=== PATIENT | male | born 1955 | race Caucasian/White ===

== ENCOUNTER 2020-01-29 00:36 | Inpatient (IN) | payer OTHER, MEDICARE, SELFPAY ==
[2020-01-29] VITALS (8 sets, daily range): BP systolic 110–140; BP diastolic 57–85; PULSE 70–86; RESP 17–21; TEMP 36.4–36.8; O2SAT 91–98; BMI 36.9
--- NOTE | 2020-01-29 01:07 | USCV_ITS ---
Sukumar Bangura Age: 64 Gender: M : 1955 Exam Date: 01/29/2020 09:22 Ordering Phys: Isabelle Nation MD Technologist: Jyoti Hall Exam Location: [facility] [place] Indication: CHF BP: 131 / 85 HR: 96 Rhythm: Sinus Technical Quality: Technically difficult study MEASUREMENTS (Male / Female) Normal Values 2D ECHO LV Diastolic Diameter PLAX 3.7 cm 4.2 - 5.9 / 3.9 - 5.3 cm LV Systolic Diameter PLAX 2.7 cm LV Chamber Size 3.3 cm IVS Diastolic Thickness 1.5 cm 0.6 - 1.0 / 0.6 - 0.9 cm IVS Systolic Thickness 1.7 cm LVPW Diastolic Thickness 1.1 cm 0.6 - 1.0 / 0.6 - 0.9 cm LVPW Systolic Thickness 1.6 cm RV Chamber Size 2.8 cm LVOT Diameter 2.1 cm LV Ejection Fraction 2D Teich 51.4 % LA Diameter 4.3 cm LA Width 2.5 cm LA Height 3.7 cm RA Width 3.0 cm RA Height 4.2 cm Aorta at Sinotubular Diameter 2.6 cm M-MODE LV Diastolic Diameter MM 3.8 cm 4.2 - 5.9 / 3.9 - 5.3 cm LV Systolic Diameter MM 3.0 cm LV Ejection Fraction MM Teich 46.7 % IVS Diastolic Thickness MM 1.3 cm 0.6 - 1.0 / 0.6 - 0.9 cm IVS Systolic Thickness MM 1.3 cm LVPW Diastolic Thickness MM 1.4 cm 0.6 - 1.0 / 0.6 - 0.9 cm LVPW Systolic Thickness MM 1.9 cm RV Diastolic Diameter MM 2.0 cm Aortic Annulus Diameter 3.2 cm LA Ao Ratio MM 1.3 MV E Point Septal Separation 1.0 cm DOPPLER AV Peak Velocity 90.0 cm/s LVOT Peak Velocity 62.0 cm/s AV Area Cont Eq vti 2.4 cm squared AV Area Cont Eq pk 2.3 cm squared MV Area PHT 4.0 cm squared Mitral E to A Ratio 1.2 MV E' Velocity 7.0 cm/s Mitral E to MV E' Ratio 9.1 Mitral E to LV E' Lateral Ratio 8.4 Mitral E to LV E' Septal Ratio 9.9 TV Peak E Velocity 48.0 cm/s Right Atrial Pressure 3.0 mmHg PV Peak Velocity 61.0 cm/s RV Acceleration Time 0.1 s RV Ejection Time 0.3 s RV AcT/ET 0.2 FINDINGS Left Ventricle The ventricle is not well seen. This is an exceedingly poor quality study. Parasternal views are barely appropriate for interpretation. The apical and subcostal views are not useful. Left ventricular size and function is probably within normal limits. One cannot assess wall motion disturbances. There is at least grade 1 diastolic dysfunction. Right Ventricle Right ventricle not well visualized. Right Atrium Right atrium not well visualized. Left Atrium Mildly increased left atrial size. Left atrium not well visualized. Mitral Valve Mitral valve not well visualized. Aortic Valve Aortic valve not well visualized. Tricuspid Valve Tricuspid valve not well visualized. Pulmonic Valve Pulmonic valve not well visualized. Pericardium Normal pericardium without effusion. Aorta Normal ascending aorta dimension. CONCLUSIONS The ventricle is not well seen. This is an exceedingly poor quality study. Parasternal views are barely appropriate for interpretation. The apical and subcostal views are not useful. Left ventricular size and function is probably within normal limits. One cannot assess wall motion disturbances. There is at least grade 1 diastolic dysfunction. Mildly increased left atrial size. Left atrium not well visualized. Technically limited study. No significant valve abnormalities. No change from 08/27/2017. Dr. Orville Marinelli MD (Electronically Signed) Final Date: 29 January 2020 13:42 S
--- NOTE | 2020-01-29 01:10 | USR_ITS ---
PROCEDURE INFORMATION: Exam: US Duplex Right Lower Extremity Veins, Limited Exam date and time: 01/29/2020 1:11 AM Age: 64 years old Clinical indication: Swelling (edema) of limb; Lower extremity, right; Additional info: Hypoxic respiratory failure, right leg swelling TECHNIQUE: Imaging protocol: Real-time Duplex ultrasound of the Right Lower Extremity with 2-D peacock scale, color Doppler flow and spectral waveform analysis with image documentation. Limited exam was focused on the right lower extremity veins. COMPARISON: No relevant prior studies available. FINDINGS: Right deep veins: The common femoral, femoral, proximal profunda femoral and popliteal veins are patent without thrombus. Normal Doppler waveforms. Normal compressibility and/or augmentation response. Right superficial veins: Saphenofemoral junction is patent without thrombus. Soft tissues: Superficial soft tissue edema. US/[place] [id number] IMPRESSION: No deep vein thrombosis.
--- NOTE | 2020-01-29 01:12 | P.HP_ITS ---
Providers/Chief Complaint Admitting Physician: Isabelle Nation MD Primary Care Provider: Rehan Khan Chief Complaint: CHF exacerbation History of Present Illness Sukumar Bangura is a 64 year old male who carries diagnosis of scoliosis, status post multiple surgeries of his back, chews tobacco daily, no significant past medical history came in from [facility] for management of new onset congestive heart failure. 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 He has never been diagnosed with CHF or PE, NM, coronary artery disease in the past. He experienced left-sided chest discomfort on Friday which was radiating towards his axilla lasted for a few minutes and went away on its own. He did not notice any cough production, fever, blood in sputum, nausea, vomiting, cold sweats. He has been noticing that his right leg is getting more swollen as compared to the left. He has orthopnea and PND, please note he is not able to lay flat because of his scoliosis. Patient is stating that he sleeps while sitting in her couch or recliner. Diagnostics from the other facility revealed Normal CBC, BMP, troponin first 32, 2-hour troponin 35, EKG was sinus rhythm, heart rate 70-80, blood pressure systolic ranging between 1 30s, he was afebrile, BNP 2500, chest x-ray did not reveal vascular congestion however shows cardiomegaly He was given 60 mg of Lasix, I requested CTA to be done before transfer, he could not lay flat because of his back pain, hence full dose Lovenox 100 mg was given, required 6 L nasal cannula O2 Review of Systems Const: Denies: fever, chills, body aches or fatigue Eyes: Denies: change in vision ENMT: Denies: throat pain Card: Reports: chest pain, swelling of feet/ankles, shortness of breath on exertion and shortness of breath when lying down; Denies: palpitations, irregular heart rhythm or lightheadedness Resp: Reports: shortness of breath; Denies: productive cough, non-productive cough or coughing up blood GI: Denies: abdominal pain, nausea, vomiting, coffee grounds in vomit or heartburn/indigestion : Denies: flank pain, difficulty urinating, urinary frequency, urinary urgency or urinary dribbling Musc: Reports: joint stiffness and muscle cramps; Denies: neck pain, back pain, extremity swelling, joint pain or joint swelling Skin/Breast: Denies: rash or itching Neuro: Denies: headache, numbness in extremities, weakness in extremities, changes in sensation or lack of coordination Psych: Denies: anxiety or depression Endo: Denies: excessive urination Chaitanya/Lymph: Denies: easy bruising All/Imm: Denies: hives PFSH Acute PFSH: Medical History Acquired arm deformity COPD (chronic obstructive pulmonary disease) Fixation hardware in spine GERD (gastroesophageal reflux disease) Hyperglycemia Kyphoscoliosis Scoliosis Tobacco chew use Surgical History (Updated 01/29/20 @ 01:20 by Isabelle Nation MD) H/O arthroscopy of shoulder History of appendectomy History of [place] fundoplication Hx of cholecystectomy Family History (Updated 01/29/20 @ 01:20 by Isabelle Nation MD) Father Cancer Social History (Updated 01/29/20 @ 01:21 by Isabelle Nation MD) Smoking and tobacco status: current every day smoker smokeless tobacco Smokeless tobacco user: chewing tobacco Smokeless tobacco details: 1 can daily Alcohol intake: never Substance/Drug Use: never Housing: Condominium 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 Renee is sitting at the bedside, saturating 84% on room air, he was put on 3 L nasal cannula that improved his oxygen saturation to 94% S1, S2, hard to assess his JVD, however bilateral lower extremity edema Lung auscultation reveals bilateral good breath sounds without any adventitious sounds Midabdominal scar not sensitive, bowel sounds present, nontender, with obesity Kyphoscoliosis Bilateral lower extremity edema right greater than left Alert oriented x3 No sign of ischemic gangrene or ulcer on skin No respiratory distress Mood is irritable A&P Assessment and plan (1) New onset of congestive heart failure: Status: Acute Code(s): I50.9 - Heart failure, unspecified Additional A&P Information New onset congestive heart failure BNP 2500, clinical signs of fluid overload We will get echo in the morning I will increase his Lasix dose to 40 mg daily No previous history of coronary disease NM or CHF Troponin 32 and second troponin 35, currently he is not complaining of chest pain, EKG did not show any signs of ischemia or infarction I am uncertain at this point whether sleep apnea contributed to congestive heart failure versus right heart failure due to PE Acute hypoxic respiratory failure My suspicion is very high for PE considering his profession, right lower extremity swelling I will keep him on Lovenox 100 mg twice a day He was not able to lay flat for CTA chest, will get d-dimer Repeat chest x-ray in the morning Kyphoscoliosis Patient is stating that he sleeps upright, he does not sleep supine He could only walk up to 6 to 10 feet's without exertional shortness of breath Titanium hetal in spine 6 ribs were removed along 4 vertebrae Chews tobacco: Counseled on smoking cessation and benefits on his health Full code DVT prophylaxis currently on high dose Lovenox Attestations Medical Necessity Statement*: Anticipating discharge in less than 48 hours, currently needs observation for work-up and management of new onset congestive heart failure and hypoxic respiratory failure Time Spent in Patient Care: 50 Coding Level of Care Code 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
--- NOTE | 2020-01-29 02:59 | PC.NURSE ---
0115 dose of lasix discontinued per Dr Nation. Patient had received 60mg of Lasix at [place], [place] prior to transfer to [facility] [place].
[2020-01-29 04:30] LABS: Estmated Average Glucose 120; Hemoglobin A1C 5.8 % (4.0-6.0)
[2020-01-29 04:31] LABS: D Dimer 0.67 ug/mIFEU (0-0.59)
[2020-01-29 04:57] LABS: Troponin T (5th) Once 24 ng/mL (0-15)
[2020-01-29 05:35] LABS: Anion Gap 17.7 (5-19); Blood Urea Nitrogen 17 mg/dL (8-23); Calcium 9.2 mg/dL (8.5-10.5); Carbon Dioxide 37 mmol/L (22-29); Chloride 90 mmol/L (98-107); Glomerular Filtration Rate 75.5 mL/min (90-130); Glucose 217 mg/dL (65-115); Osmolality Calculated 293 mOsm/kg (285-295); Potassium 4.7 mmol/L (3.5-5.1); Sodium 140 mmol/L (136-145); Thyroid Stimulating Hormone 0.62 uIU/mL (0.27-4.20)
[2020-01-29 05:58] LABS: Chol HDL Ratio 2.46 mg/dL (1.0-5.00); Cholesterol 118 mg/dL (0-200); HDL Cholesterol 48 mg/dL (60-100); LDL Cholesterol Calculated 44 mg/dL (50-129); LDL HDL Ratio 0.92 RATIO (0.00-3.22); Triglycerides 130 mg/dL (0-150)
--- NOTE | 2020-01-29 07:00 | XRR_ITS ---
PROCEDURE INFORMATION: Exam: XR Chest, 1 View Exam date and time: 01/29/2020 5:06 AM Age: 64 years old Clinical indication: Shortness of breath; Prior surgery; Surgery date: 6+ months; Surgery type: Back SX; Additional info: Chf TECHNIQUE: Imaging protocol: XR of the chest Views: 1 view. COMPARISON: CR Chest 1 [place] [id number] 02/24/2018 3:16 PM FINDINGS: Lungs: Lungs are clear. Pleural space: There is no pleural effusion or pneumothorax. Heart/Mediastinum: Moderate enlargement of the cardiac silhouette accentuated by marked scoliosis, stable since 02/24/2018. Bones/joints: Marked S-shaped thoracic scoliosis. Oconnor hetal noted. There is bilateral chest wall deformity due to scoliosis. No visible fractures. XR/XR chest 1V portable [id number] IMPRESSION: No acute findings.
[2020-01-29] MEDS: pantoprazole DR 40 mg Tablet 20 MG PO (09:17)
[2020-01-29] MEDS: enoxaparin 100 mg/mL Syringe 85 MG SUBCUT ×2 (09:22→20:27)
[2020-01-29] MEDS: FUROsemide 10 mg/mL SDV 4mL 40 MG IVP ×2 (09:22→17:54)
--- NOTE | 2020-01-29 09:58 | PC.NURSE ---
Patient assisted to restroom and refused to wear oxygen and was not wearing it when this nurse entered room. Upon returning to chair O2 checked and patient o2 saturations are noted at 67% O2 placed at 3L patient not recovering well after 2 min O2 turned up to 5L to help with recovery. Patient asymptomatic awake alert and appropriate respirations increased and mild abd breathing noted. Educated patient on what was going on with his O2 and Patient stated Don't write that down i want to go home today. Patient educated on the need to report all events to the doctors to give the best care possible. patient continues to tell this Nurse that he was going home today.
--- NOTE | 2020-01-29 11:18 | PC.NURSE ---
Patient sitting up in chair present patient is on telephone and when nurse entered room patient stated to person on Phone I have to get off here, because my nurse just walked in and I have to Kick her ass out of here patient then requested sodas coke and sprite or 2 sprites patient educated on the need to limit fluid intake and patient stated what goes in comes out patient and educated on Heart failure and the do's and don't to prevent exacerbations. Patient is no susceptible to learning will reenforce education throughout the shift
--- NOTE | 2020-01-29 11:24 | CTR_ITS ---
PROCEDURE INFORMATION: Exam: CT Angiography Chest With Contrast Exam date and time: 01/29/2020 4:21 PM Age: 64 years old Clinical indication: Dyspnea; Additional info: Dyspnea with concern for pe TECHNIQUE: Imaging protocol: Computed tomographic angiography of the chest with intravenous contrast. 3D rendering: MIP and/or 3D reconstructed images were created by the technologist. Total DLP: 479.07 mGy-cm Radiation optimization: All CT scans at this facility use at least one of these dose optimization techniques: automated exposure control; mA and/or kV adjustment per patient size (includes targeted exams where dose is matched to clinical indication); or iterative reconstruction. Contrast material: OMNIPAQUE 350; Contrast volume: 95 ml; Contrast route: IV; COMPARISON: CR XR chest 1V portable [id number] 01/29/2020 4:57 AM FINDINGS: Pulmonary arteries: The pulmonary artery is enlarged consistent with pulmonary artery hypertension. There is no evidence for a pulmonary embolus. Aorta: Unremarkable. No aortic aneurysm. No aortic dissection. Lungs: There is a 1.4 cm nodule in the right middle lobe on series 2, image 171. There are some adjacent 0.5 cm nodules in the right middle lobe on image 163. There are also nodular densities in the right lower lobe on image 142 measuring 1.8 and 1.2 cm. Pleural space: Unremarkable. No pneumothorax. No pleural effusion. Heart: Unremarkable. No cardiomegaly. No pericardial effusion. Lymph nodes: Unremarkable. No enlarged lymph nodes. Bones/joints: There is a posterior fusion rods which results in streak artifact. There is a thoracolumbar spine scoliosis. Soft tissues: Unremarkable. This study is compromised by patient motion. CT/CT angio chest PE protcl [id number] IMPRESSION: There is no evidence for a pulmonary embolus. There is multifocal nodular disease in the right middle and lower lobes of the lung. This may represent infectious, inflammatory or metastatic disease.Clinical correlation is advised. For patients at low risk (minimal or absent history of smoking and of other known risk factors), recommend CT at 3-6 months, then consider CT at 18-24 months. For patients at high risk (history of smoking or of other known risk factors), recommend CT at 3-6 months, then CT at 18-24 months. (dave Cadet al., Fleischner Society, 2017) Radiation Dose CTDIVOL = (mGy): DLP = 479.07 (mGy-cm)
--- NOTE | 2020-01-29 11:49 | PM.PN ---
Subjective Subjective: Interval history: Patient denies chest pain but reports gradually worsening shortness of breath especially in the last 2 weeks. He admits skipping Lasix frequently. He started new job 2 weeks ago. 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 He drinks large amount of fluids. In the last several months he reports that he cannot lay flat in his bed and sleeps always in the recliner. He reports paroxysmal nocturnal dyspnea, orthopnea and worsening lower extremity swelling. Reports that he is right lower extremity is always swollen more than left. Medications: Reviewed: Yes Vitals/I&O/Wt Last Vital Signs Temp 97.6 F 01/29/20 11:17 Pulse 79 01/29/20 11:17 Resp 17 01/29/20 11:17 BP 117/64 01/29/20 11:17 Pulse Ox 97 01/29/20 11:17 01/28/20 01/29/20 01/29/20 22:59 06:59 14:59 Intake Total 150 / 150 240 / 240 Output Total 350 / 350 Balance -200 / -200 240 / 240 Weight last 48 hrs Weight 85.729 kg Physical Exam Const: COMMON NORMALS: no apparent distress and oriented x3 Chest: OTHER: Kyphoscoliosis. 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 Resp: COMMON NORMALS: normal respiratory effort OTHER: Bibasilar Rales with overall decreased air movement. Cardio: COMMON NORMALS: regular rate, regular rhythm and S2 normal heart sound RATE: regular rate RHYTHM: regular rhythm HEART SOUNDS: S2 normal OTHER: 3+ lower extremity edema with right slightly more than left GI: COMMON NORMALS: normal to inspection, nondistended, normoactive bowel sounds, soft to palpation and non-tender PALPATION: Yes soft Neuro: COMMON NORMALS: oriented x3 and no focal motor deficits Data : 01/29/20 03:21 A&P Assessment and plan (1) New onset of congestive heart failure: Status: Acute Code(s): I50.9 - Heart failure, unspecified Additional A&P Information New onset congestive heart failure appears to be diastolic Acute hypoxic respiratory failure Kyphoscoliosis Chews tobacco Hyperglycemia without previous diagnosis of diabetes. PLAN: We will aggressively diurese patient. Obtain CTA of the chest to rule out PE and to better evaluate for pneumonia as patient reports nasal congestion and at times clear phlegm productive cough. Awaiting bilateral lower extremity venous ultrasound and echocardiogram. Patient is definitely at risk for DVT/PE and this could play a role in patient's hypoxia and episode of chest pain. Monitor blood glucose level and check hemoglobin A1c. Full code DVT prophylaxis currently on high dose Lovenox Attestations Medical Necessity Statement*: Patient with acute heart failure requires close inpatient monitoring and treatment. 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
--- NOTE | 2020-01-29 11:56 | USR_ITS ---
PROCEDURE INFORMATION: Exam: US Duplex Left Lower Extremity Veins, Limited Exam date and time: 01/29/2020 12:44 PM Age: 64 years old Clinical indication: Swelling (edema) of limb; Lower extremity, left TECHNIQUE: Imaging protocol: Real-time Duplex ultrasound of the Left Lower Extremity with 2-D peacock scale, color Doppler flow and spectral waveform analysis with image documentation. Limited exam focused on the left lower extremity veins. COMPARISON: No relevant prior studies available. FINDINGS: Left deep veins: Unremarkable. The common femoral, femoral, proximal profunda femoral and popliteal veins are patent without thrombus. Normal Doppler waveforms. Normal compressibility and/or augmentation response. Left superficial veins: Unremarkable. Saphenofemoral junction is patent without thrombus. Soft tissues: Unremarkable. US/CV venous duplex [facility] [id number] IMPRESSION: No DVT of the left lower extremity veins.
--- NOTE | 2020-01-29 12:05 | PC.NURSE ---
clarified orders on furosemide 40MG IVP to give now when a dose was given at 0922 hold the noon dose and start at next scheduled time
[2020-01-29 12:49] LABS: Cholesterol 120 mg/dL (0-200); Magnesium 2.1 mg/dL (1.7-2.3); Triglycerides 116 mg/dL (0-150); VLDL Cholestrol Calculation 23 mg/dL (0-30)
[2020-01-29 13:41] LABS: Estmated Average Glucose 120; Hemoglobin A1C 5.8 % (4.0-6.0)
[2020-01-29 13:46] LABS: Chol HDL Ratio 2.45 mg/dL (1.0-5.00); HDL Cholesterol 49 mg/dL (60-100); LDL Cholesterol Calculated 48 mg/dL (50-129)
--- NOTE | 2020-01-29 13:52 | PC.CHAP ---
Pastoral Care Encounter/Spiritual Assessment Type of Contact [] Declined blender operator visit [] Patient/Family/Request visit [] Outpatient visit [] Follow-up visit [] Physician referral [] Code/Alert [X] Routine visit [] Staff referral [] Actively dying [] Patient sleeping [] Family support [] [] Out of room [] Palliative care [] [] Receiving care in room [] Pre-surgical visit [] Trauma [] Long length of stay [] ICU visit [] Other: Relational/Emotional Strength [] Patient feels connected with others/family/visitors/staff [] Distress [] Loneliness/isolation [] Abandonment Spirituality of Patient [] Person of Adela [] Attends Restorationist of their Adela [] Believes in Prayer [] Reads Bible or Nondenominational materials [] There are Spiritual issues to be addressed [place] Interventions [] Prayer [] Active listening [] Non-anxious presence [] Spiritual/emotional support [] Crisis/trauma care [] Spiritual counseling [] Bereavement support [] Provided bereavement packet [] Provided Bible/devotional materials [] Provided toy/stuffed animal, coloring book to patient or family member [] Provided Communion [] Anointing/[place] [] Salvation [] Completed spiritual assessment [] Other: Impact on Illness or Injury [] Angry [] Fearful [] Anxious [] Often cries [] Exhaustion [] Unable to work [] Unable to attend presybeterian [] Unable to walk/stand [] Unable to read [] Unable to drive [] Unable to eat/drink [] Unable to sleep [] Unable to be with family [] Patient intubated [] Other: Summary CUTS UP AND LAUGHS A LOT Time spent with patient
--- NOTE | 2020-01-29 17:35 | PC.NURSE ---
spoke with Dr. Hayes about time of administration of Lasix ok to reschedule to 1800,0600
[2020-01-30] VITALS (8 sets, daily range): BP systolic 112–130; BP diastolic 71–91; PULSE 72–84; RESP 18–32; TEMP 36.6–37; O2SAT 93–98
[2020-01-30] MEDS: FUROsemide 10 mg/mL SDV 4mL 40 MG IVP ×2 (04:55→17:26)
[2020-01-30 05:08] LABS: Basophils % 0.1 %; Hematocrit 58.4 % (42.0-52.0); Hemoglobin 16.5 g/dL (11.7-16.6); Lymphocytes # 1.2 10^3/uL (0.8-4.8); Lymphocytes % 11.1 %; Mean Corpuscular HGB Conc 28.3 g/dL (30.0-36.0); Mean Corpuscular Hemoglobin 29.4 pg (28.0-34.0); Mean Corpuscular Volume 103.9 fL (80-94); Mean Platelet Volume 9.9 fL (7.4-10.4); Monocytes # 0.9 10^3/uL (0.2-0.9); Monocytes % 8.7 %; Neutrophils # 8.6 10^3/uL (1.8-7.7); Neutrophils % 79.7 %; Nucleated Red Blood Cells % 0 %; Platelet Count 179 10^3/cmm (130-400); Red Blood Count 5.62 10^6/uL (4.1-5.3); Red Cell Distribution Width 13.6 % (12.1-15.1); White Blood Count 10.8 10^3/uL (4.0-10.0)
[2020-01-30 05:37] LABS: Alanine Aminotransferase 19 U/L (0-41); Albumin Level 3.7 g/dL (3.5-5.2); Alkaline Phosphatase 92 IU/L (40-130); Blood Urea Nitrogen 22 mg/dL (8-23); Calcium 9.2 mg/dL (8.5-10.5); Chloride 90 mmol/L (98-107); Globulin 3.4 g/dL (1.3-4.6); Glomerular Filtration Rate 75.5 mL/min (90-130); Glucose 121 mg/dL (65-115); Osmolality Calculated 290 mOsm/kg (285-295); Sodium 141 mmol/L (136-145); Total Bilirubin 0.4 mg/dL (0.15-1.2); Total Protein 7.1 g/dL (6.6-8.7)
[2020-01-30 05:41] LABS: Aspartate Amino Transferase 21 U/L (0-40)
[2020-01-30 05:42] LABS: Carbon Dioxide 44 mmol/L (22-29)
[2020-01-30] MEDS: pantoprazole DR 40 mg Tablet 20 MG PO (08:53)
[2020-01-30] MEDS: enoxaparin 100 mg/mL Syringe 85 MG SUBCUT ×2 (08:56→19:59)
--- NOTE | 2020-01-30 10:51 | P.PN_ITS ---
Subjective Subjective: Interval history: Patient reports feeling better this morning. His breathing is better and lower extremity swelling improving. Reports dry cough Medications: Reviewed: Yes Vitals/I&O/Wt Last Vital Signs Temp 98.1 F 01/30/20 04:00 Pulse 78 01/30/20 07:51 Resp 20 H 01/30/20 07:51 BP 124/91 01/30/20 07:51 Pulse Ox 94 01/30/20 07:51 01/29/20 01/30/20 01/30/20 22:59 06:59 14:59 Intake Total 240 / 480 240 / 720 360 / 360 Output Total 950 / 1650 800 / 2450 200 / 200 Balance -710 / -1170 -560 / -1730 160 / 160 Weight last 48 hrs Weight 85.729 kg Physical Exam Const: COMMON NORMALS: no apparent distress and oriented x3 Chest: OTHER: Kyphoscoliosis. 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 Resp: COMMON NORMALS: normal respiratory effort OTHER: Bibasilar Rales with overall decreased air movement. Cardio: COMMON NORMALS: regular rate, regular rhythm and S2 normal heart sound RATE: regular rate RHYTHM: regular rhythm HEART SOUNDS: S2 normal OTHER: 1+ lower extremity edema with right slightly more than left GI: COMMON NORMALS: normal to inspection, nondistended, normoactive bowel sounds, soft to palpation and non-tender PALPATION: Yes soft Neuro: COMMON NORMALS: oriented x3 and no focal motor deficits Data : 01/30/20 04:05 01/30/20 04:05 A&P Assessment and plan (1) New onset of congestive heart failure: Status: Acute Code(s): I50.9 - Heart failure, unspecified Additional A&P Information New onset congestive heart failure appears to be diastolic Acute hypoxic respiratory failure Kyphoscoliosis Chews tobacco Hyperglycemia without previous diagnosis of diabetes. HgA1C 5.8 Multifocal nodular disease in Right middle and lower lobes. Infectioun vs malignancy. (patient will need outpatient repeat imaging after treatment of pneumonia for reevaluation in 3 month or sooner. Community-acquired pneumonia. PLAN: Continue IV diuresis for one more day Will start patient on Levaquin for assumed pneumonia. Patient will need to have repeat imaging in couple of months to reevaluate nodular disease. Again discussed regarding importance of restricting fluids when he starts having lower extremity swelling and shortness of breath Full code DVT prophylaxis currently on high dose Lovenox Attestations Medical Necessity Statement*: Patient with CHF exacerbation as well as pneumonia requires close inpatient monitoring and treatment will deemed safe for discharge. Coding Level of Care Code Acute Emotionally Impaired Teacher for Edwin Ward Diagnoses New onset of congestive heart failure I50.9
[2020-01-30] MEDS: levofloxacin-dextrose 5 % 750 MG/150 ML PREMIX 150 MG IV (12:18)
[2020-01-31] VITALS (55 sets, daily range): BP systolic 112–120; BP diastolic 77–84; PULSE 74–103; RESP 13–34; TEMP 36.5–37.1; O2SAT 90–96
[2020-01-31 05:18] LABS: Basophils % 0.4 %; Eosinophils # 0.1 10^3/uL (0.0-0.8); Eosinophils % 1.2 %; Hematocrit 59.9 % (42.0-52.0); Hemoglobin 16.8 g/dL (11.7-16.6); Lymphocytes # 1.7 10^3/uL (0.8-4.8); Lymphocytes % 21.6 %; Mean Corpuscular Hemoglobin 29.3 pg (28.0-34.0); Mean Corpuscular Volume 104.5 fL (80-94); Mean Platelet Volume 9.9 fL (7.4-10.4); Monocytes # 1.1 10^3/uL (0.2-0.9); Monocytes % 14.2 %; Neutrophils % 62.4 %; Nucleated Red Blood Cells % 0 %; Platelet Count 160 10^3/cmm (130-400); Red Blood Count 5.73 10^6/uL (4.1-5.3); Red Cell Distribution Width 13.9 % (12.1-15.1); White Blood Count 8.1 10^3/uL (4.0-10.0)
[2020-01-31 05:45] LABS: Alanine Aminotransferase 18 U/L (0-41); Albumin Level 3.8 g/dL (3.5-5.2); Alkaline Phosphatase 94 IU/L (40-130); Anion Gap 10.3 (5-19); Blood Urea Nitrogen 24 mg/dL (8-23); Calcium 9.2 mg/dL (8.5-10.5); Chloride 87 mmol/L (98-107); Globulin 3.6 g/dL (1.3-4.6); Glomerular Filtration Rate 85.2 mL/min (90-130); Glucose 91 mg/dL (65-115); Osmolality Calculated 292 mOsm/kg (285-295); Potassium 4.3 mmol/L (3.5-5.1); Sodium 143 mmol/L (136-145); Total Bilirubin 0.6 mg/dL (0.15-1.2); Total Protein 7.4 g/dL (6.6-8.7)
[2020-01-31 05:50] LABS: Aspartate Amino Transferase 19 U/L (0-40); Carbon Dioxide 50 mmol/L (22-29)
--- NOTE | 2020-01-31 06:40 | PC.NURSE ---
IV in right upper arm infiltrated and removed with catheter intact. Attempt to start new IV x4 by this nurse and an ER nurse with no success. Will try at another time as patient is getting agitated due to needle sticks.
[2020-01-31] MEDS: enoxaparin 100 mg/mL Syringe 85 MG SUBCUT (08:05)
[2020-01-31] MEDS: FUROsemide 10 mg/mL SDV 4mL 40 MG IVP (08:05)
[2020-01-31] MEDS: pantoprazole DR 40 mg Tablet 20 MG PO (08:05)
[2020-01-31] MEDS: levofloxacin-dextrose 5 % 750 MG/150 ML PREMIX 150 MG IV (11:44)
--- NOTE | 2020-01-31 11:55 | P.PN_ITS ---
Subjective Subjective: Interval history: Chart reviewed, on RA and hemodynamically stable, had 575 mL urine output overnight. AM labs noted, resolved leukocytosis. Patient seen and examined, sitting up in bed, no complaints currently, inquiring about when he gets to go home. Switched to oral diuretics and antibiotics. Medications: Reviewed: Yes Medication Review Details: Active Medications Generic Name Dose Route Start Last Admin Trade Name Freq PRN Reason Stop Dose Admin Albuterol/Ipratrop ium 3 ml 01/29/20 01:10 Duoneb INHALATION Q6H PRN SHORTNESS OF SUDHAKAR TH Enoxaparin Sodium 85 mg 01/29/20 09:00 01/31/20 08:05 Lovenox SUBCUT 85 mg Q12H ZIGGY Administration Furosemide 40 mg 01/29/20 18:00 01/31/20 08:05 Lasix IVP 40 mg Q12H ZIGGY Administration Levofloxacin/Dextr ose 750 mg in 150 mls @ 150 mls/hr 01/30/20 11:30 01/31/20 11:44 Levaquin-D5w IV 150 mls/hr Q24H ZIGGY Administration Protocol Pantoprazole Sodiu m 20 mg 01/29/20 09:00 01/31/20 08:05 Protonix PO 20 mg DAILY ZIGGY Administration codeine Allergy (Verified 01/29/20 02:03) ALGY-Rash Vitals/I&O/Wt Last Vital Signs Temp 97.7 F 01/31/20 11:45 Pulse 80 01/31/20 11:45 Resp 21 H 01/31/20 11:45 BP 120/84 01/31/20 11:45 Pulse Ox 93 01/31/20 11:45 01/30/20 01/31/20 01/31/20 22:59 06:59 14:59 Intake Total 140 / 650 300 / 950 360 / 360 Output Total 1225 / 1725 375 / 2100 650 / 650 Balance -1085 / -1075 -75 / -1150 -290 / -290 Physical Exam Const: COMMON NORMALS: no apparent distress and oriented x3 GENERAL APPEARANCE: cooperative and comfortable NUTRITIONAL APPEARANCE: obese JESSICA ENTATION/CONSCIOUSNESS: Yes awake HENMT: COMMON NORMALS: normocephalic, head/scalp atraumatic, hearing grossly normal bilaterally and moist oral mucous membranes HEAD & SCALP: normoce phalic and atraumatic Eye: COMMON NORMALS: PERRL, EOMs intact bilaterally and conjunctivae normal CONJUNCTIVA: Yes conjunctivae normal PUPIL: Yes PERRL Neck/C-Spine: COMMON NORMALS: full ROM GENERAL: Yes normal visual inspection and Yes trachea midline Resp: COMMON NORMALS: normal respiratory effort, no retractions, no use of accessory muscles and clear to auscultation bilaterally EFFORT & INSPECTION: Yes able to speak in complete sentences, Yes symmetric chest movement and No tachypneic AUSCULTATION: clear to auscultation bilaterally Cardio: COMMON NORMALS: regular rate, regular rhythm, S1 normal heart sound, S2 normal heart sound and no murmurs RATE: regular rate RHYTHM: regular rhythm HEART SOUNDS: S1 normal and S2 normal GI: COMMON NORMALS: normal to inspection, nondistended, normoactive bowel sounds, soft to palpation and non-tender INSPECTION: Yes central obesity PALPATION: Yes soft Extremity: COMMON NORMALS: normal to inspection, full ROM and no clubbing, cyanosis or edema; negative for no pedal edema NARRATIVE EXTREMITY EXAM: -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 Neuro: COMMON NORMALS: oriented x3, moves all extremities, no focal motor deficits, no sensory deficits noted and gait normal Psych: COMMON NORMALS: mental status grossly normal, thought process normal, cooperative, affect normal and speech normal SPEECH: Yes normal speech THOUGHT PROCESS: normal thought process Skin: COMMON NORMALS: no rashes or lesions noted, no jaundice, no petechiae and no mottling GENERAL SKIN EXAM: no rashes or lesions noted Data : 01/31/20 04:06 01/31/20 04:06 A&P Assessment and plan (1) New onset of congestive heart failure: -new onset diastolic CHF -Echo: limited study but EF likely wnl, at least G1DD -on IV diuresis with Lasix; so far has diuresed 3.4 L; better clinically compensated, switch to oral Lasix -continue daily weights, monitoring Is & Os -continue to monitor renal function and lytes -CXR negative Status: Acute Code(s): I50.9 - Heart failure, unspecified (2) Acquired arm deformity: Status: Acute Qualifiers: Laterality: left Qualified Code(s): M21.922 - Unspecified acquired deformity of left upper arm Code(s): M21.929 - Unspecified acquired deformity of unspecified upper arm Additional A&P Information -Morbid obesity: BMI-37 kg/m2 -COPD, not oxygen dependent -kyphoscoliosis s/p multiple back surgeries -Chronic tobacco use (chewing) -community acquired pneumonia; on Levaquin, CXR negative, afebrile, leukocytosis resolved -PE and DVT ruled out; noted evidence of pulmonary arterial hypertension on CT as well as RML and RLL nodules; will need f/u imaging -cardiac diet as tolerated -DVT ppx with Lovenox -GI ppx with PPI -Dispo: home -Code status: FULL code Attestations Medical Necessity Statement*: Patient requires hospitalization for continued IV diuresis secondary to acutely decompensated CHF. Time Spent in Patient Care: Greater than 35 minutes (>than 50% of time spent in counselling and/or direct pt care on unit) . Coding Level of Care Code Acute Java [id number] Architect for Edwin Fwd Exam Comprehensive Diagnoses New onset of congestive heart failure I50.9 Acquired arm deformity M21.922 Laterality: left
--- NOTE | 2020-01-31 15:13 | PC.CHAP ---
Pastoral Care Encounter/Spiritual Assessment Type of Contact [] Declined automated equipment engineer technician visit [] Patient/Family/Request visit [] Outpatient visit [] Follow-up visit [] Physician referral [] Code/Alert [x] Routine visit [] Staff referral [] Actively dying [] Patient sleeping [] Family support [] [] Out of room [] Palliative care [] [] Receiving care in room [] Pre-surgical visit [] Trauma [] Long length of stay [] ICU visit [] Other: Relational/Emotional Strength [] Patient feels connected with others/family/visitors/staff [] Distress [] Loneliness/isolation [] Abandonment Spirituality of Patient [] Person of Adela [] Attends Moravian of their Adela [] Believes in Prayer [] Reads Bible or Yazidism materials [x] There are Spiritual issues to be addressed Glass Handler Interventions [] Prayer [x] Active listening [x] Non-anxious presence [x] Spiritual/emotional support [] Crisis/trauma care [] Spiritual counseling [] Bereavement support [] Provided bereavement packet [] Provided Bible/devotional materials [] Provided toy/stuffed animal, coloring book to patient or family member [] Provided Communion [] Anointing/[place] [] Salvation [x] Completed spiritual assessment [] Other: Impact on Illness or Injury [] Angry [] Fearful [] Anxious [] Often cries [] Exhaustion [] Unable to work [] Unable to attend anabaptism [] Unable to walk/stand [] Unable to read [] Unable to drive [] Unable to eat/drink [] Unable to sleep [] Unable to be with family [] Patient intubated [] Other: Summary Patient declined prayer and didn't need anything from chaplains. Patient was visited by Glass Handler Ulysses Loomis. Time spent with patient 8 minutes
--- NOTE | 2020-01-31 22:05 | PC.NURSE ---
went to check on patient, patient sitting in chair in upright position, reapplied coban around the patient's IV site, Pulled chair up so patient can elevate bilateral lower extremities because patient is refusing to lay in the bed at this time. Care Continued and will continue to monitor. Call light within reach.
[2020-02-01] VITALS (7 sets, daily range): BP systolic 101–130; BP diastolic 67–86; PULSE 75–81; RESP 15–29; TEMP 36.6–36.8; O2SAT 86–98
--- NOTE | 2020-02-01 02:06 | PC.NURSE ---
patient sitting up in the chair, encouraged the patient to lay in the bed, patient refuses, patient also refuses to keep bilateral lower extremities elevated. Encouraged patient that if sitting in the chair, to elevate bilateral lower extremities. Teaching provided to patient regarding dependent edema. Patient verbalizes understanding; however, still refuses to elevate bilateral lower extremities. Care Continue. Call light within reach.
[2020-02-01 04:02] LABS: Basophils % 0.6 %; Eosinophils # 0.1 10^3/uL (0.0-0.8); Eosinophils % 1.9 %; Hematocrit 60.8 % (42.0-52.0); Hemoglobin 18.1 g/dL (11.7-16.6); Lymphocytes # 1.7 10^3/uL (0.8-4.8); Lymphocytes % 23.3 %; Mean Corpuscular HGB Conc 29.8 g/dL (30.0-36.0); Mean Corpuscular Hemoglobin 29.9 pg (28.0-34.0); Mean Corpuscular Volume 100.3 fL (80-94); Mean Platelet Volume 9.9 fL (7.4-10.4); Monocytes % 13.6 %; Neutrophils # 4.4 10^3/uL (1.8-7.7); Neutrophils % 60.3 %; Nucleated Red Blood Cells % 0 %; Platelet Count 172 10^3/cmm (130-400); Red Blood Count 6.06 10^6/uL (4.1-5.3); Red Cell Distribution Width 13.6 % (12.1-15.1); White Blood Count 7.2 10^3/uL (4.0-10.0)
[2020-02-01 04:14] LABS: Alanine Aminotransferase 16 U/L (0-41); Albumin Level 3.4 g/dL (3.5-5.2); Alkaline Phosphatase 94 IU/L (40-130); Anion Gap 7.9 (5-19); Aspartate Amino Transferase 16 U/L (0-40); Blood Urea Nitrogen 21 mg/dL (8-23); Calcium 9.7 mg/dL (8.5-10.5); Chloride 91 mmol/L (98-107); Globulin 4.2 g/dL (1.3-4.6); Glomerular Filtration Rate 97.6 mL/min (90-130); Glucose 111 mg/dL (65-115); Osmolality Calculated 289 mOsm/kg (285-295); Potassium 3.9 mmol/L (3.5-5.1); Sodium 141 mmol/L (136-145); Total Protein 7.6 g/dL (6.6-8.7)
[2020-02-01 04:57] LABS: Carbon Dioxide 37 mmol/L (22-29)
[2020-02-01] MEDS: levoFLOXacin 750 mg Tablet PO (05:15)
--- NOTE | 2020-02-01 08:09 | P.PN_ITS ---
Subjective Subjective: Interval history: Morning labs noted, increased RBC, hemoglobin and hematocrit. This could be related to diuretic use so we will give normal saline bolus and repeat CBC. Had 550 mL urine output overnight. Is requiring 2 L nasal cannula so will have home oxygen evaluation done. Patient qualifies for 2 L nasal cannula with exertion. Sitting in chair by bedside during my encounter, no complaints, very eager to go home this afternoon. Medications: Reviewed: Yes Medication Review Details: Active Medications Generic Name Dose Route Start Last Admin Trade Name Freq PRN Reason Stop Dose Admin Albuterol/Ipratrop ium 3 ml 01/31/20 13:10 Duoneb INHALATION Q6H.RESPIRATORY P RN SHORTNESS OF SUDHAKAR TH Enoxaparin Sodium 40 mg 02/01/20 09:00 Lovenox SUBCUT Q24H ZIGGY Furosemide 40 mg 02/01/20 08:00 Lasix PO BID@08,16 [facility] Sodium Chloride 1,000 mls @ 999 m ls/hr 02/01/20 08:08 Sodium Chloride 0.9% IV 02/01/20 09:08 .Q1H1M ONE Levofloxacin 750 mg 02/01/20 06:00 02/01/20 05:15 Levaquin PO 750 mg DAILY@0600 [facility] Administration Protocol Pantoprazole Sodiu m 40 mg 02/01/20 09:00 Protonix PO DAILY [facility] codeine Allergy (Verified 01/29/20 02:03) ALGY-Rash Vitals/I&O/Wt Last Vital Signs Temp 98.2 F 02/01/20 04:00 Pulse 81 02/01/20 07:29 Resp 15 02/01/20 07:29 BP 130/74 02/01/20 07:29 Pulse Ox 95 02/01/20 07:29 01/31/20 02/01/20 02/01/20 22:59 06:59 14:59 Intake Total 480 / 1110 Output Total 825 / 1875 / 1974 100 Balance -345 / -765 -100 / -865 -100 / -100 Physical Exam Const: COMMON NORMALS: no apparent distress and oriented x3 GENERAL APPEARANCE: cooperative and comfortable NUTRITIONAL APPEARANCE: obese ORIENTATION/CONSCIOUSNESS: Yes awake HENMT: COMMON NORMALS: normocephalic, head/scalp atraumatic, hearing grossly normal bilaterally and moist oral mucous membranes HEAD & SCALP: normocephalic and atraumatic Eye: COMMON NORMALS: PERRL, EOMs intact bilaterally and conjunctivae normal CONJUNCTIVA: Yes conjunctivae normal PUPIL: Yes PERRL Neck/C-Spine: COMMON NORMALS: full ROM GENERAL: Yes normal visual inspection and Yes trachea midline Resp: COMMON NORMALS: normal respiratory effort, no retractions, no use of accessory muscles and clear to auscultation bilaterally EFFORT & INSPECTION: Yes able to speak in complete sentences, Yes symmetric chest movement and No tac hypneic AUSCULTATION: clear to auscultation bilaterally Cardio: COMMON NORMALS: regular rate, regular rhythm, S1 normal heart sound, S2 normal heart sound and no murmurs RATE: regular rate RHYTHM: regular rhythm HEART SOUNDS: S1 normal and S2 normal GI: COMMON NORMALS: normal to inspection, nondistended, normoactive bowel sounds, soft to palpation and non-tender INSPECTION: Yes central obesity PALPATION: Yes soft Back/Pelvis: OTHER: -Noted kyphoscoliosis, scarring from previous back surgeries Extremity: COMMON NORMALS: normal to inspection and full ROM; negative for no pedal edema NARRATIVE EXTREMITY EXAM: -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 -Trace pitting edema bilateral lower extremities Neuro: COMMON NORMALS: oriented x3, moves all extremities, no focal motor deficits, no sensory deficits noted and gait normal Psych: COMMON NORMALS: mental status grossly normal, thought process normal, cooperative, affect normal and speech normal SPEECH: Yes normal speech THOUGHT PROCESS: normal thought process Skin: COMMON NORMALS: no rashes or lesions noted, no jaundice, no petechiae and no mottling GENERAL SKIN EXAM: no rashes or lesions noted Data : 02/01/20 10:34 02/01/20 03:05 A&P Assessment and plan (1) New onset of congestive heart failure: -new onset diastolic CHF -Echo: limited study but EF likely wnl, at least G1DD -on IV diuresis with Lasix; so far has diuresed 4 L; better clinically compensated, switched to oral Lasix -continue daily weights, monitoring Is & Os -continue to monitor renal function and lytes -CXR negative Status: Acute Code(s): I50.9 - Heart failure, unspecified (2) Acquired arm deformity: Status: Chronic Qualifiers: Laterality: left Qualified Code(s): M21.922 - Unspecified acquired deformity of left upper arm Code(s): M21.929 - Unspecified acquired deformity of unspecified upper arm Additional A&P Information -Morbid obesity: BMI-37 kg/m2 -COPD, not oxygen dependent -kyphoscoliosis s/p multiple back surgeries -Chronic tobacco use (chewing) -community acquired pneumonia; on Levaquin, CXR negative, afebrile, leukocytosis resolved -noted polycythemia with high RBC, elevated Hg and hematocrit; review of previo us labs shows normal values so likely relative polycythemia related to diuretic use. Will give IVF and repeat CBC. Otherwise could be multifactorial given CELESTE, hypoxia and pulmonary HTN -PE and DVT ruled out; noted evidence of pulmonary arterial hypertension on CT as well as RML and RLL nodules; will need f/u imaging -cardiac diet as tolerated -DVT ppx with Lovenox -GI ppx with PPI -Dispo: home -Code status: FULL code Attestations Medical Necessity Statement*: Posssible discharge later today if CBC improved. Time Spent in Patient Care: 16 - 35 minutes (>than 50% of time spent in counselling and/or direct pt care on unit) . Coding Level of Care Code Acute Admissions Supervisor for Samig Fwd Exam Comprehensive Diagnoses New onset of congestive heart failure I50.9 Acquired arm deformity M21.922 Laterality: left
--- NOTE | 2020-02-01 08:38 | P.DS_ITS ---
Discharge Providers Date of Admission: 01/31/20 12:02 Date of Discharge: February 01, 2020 Attending Provider at Admission: Isabelle Nation MD Attending Provider at Discharge: Nelsy Gomez MD Primary Care Provider: Sukhjinder Khan Diagnoses at Discharge Discharge Diagnosis (1) New onset of congestive heart failure: Status: Acute (2) Acquired arm deformity: Status: Chronic Qualifiers: Laterality: left Qualified Code(s): M21.922 - Unspecified acquired deformity of left upper arm Reason for Visit Reason for Visit: Reason For Visit: CHF exacerbation Hospital Course Hospital Course: Patient was admitted to the cardiac stepdown unit and secondary to new onset CHF exacerbation he was diuresed with IV Lasix. He has responded well to diuresis and once symptomatically improved and clinically compensated he was switched to oral Lasix. Echo was done though study was quite limited, EF is likely within normal limits and he has at least grade 1 diastolic dysfunction. He was noted to have symptoms concerning for possible community- acquired pneumonia and has been on empiric Levaquin which he will need to continue on discharge to complete his treatment course. Incidentally he was noted to have what appears to be relative polycythemia likely secondary to diuretic use with noted elevated RBC mass, elevated hemoglobin and hematocrit. He was hydrated and follow-up CBC was done with some improvement noted. This could also be related to hypoxia and pulmonary arterial hypertension which was noted on CTA of the chest. He will require continued follow-up with primary care provider. He has intermittently required supplemental oxygen which he is not on at baseline so had a home oxygen evaluation done prior to discharge; he qualifies for 2 L with exertion, appropriate DME set up. He was also found to have right middle lobe and right lower lobe pulmonary nodules which will require follow-up in approximately 3 to 6 months as he is high risk secondary to chronic tobacco use. Discharge Summary: -Patient to follow-up with primary care physician within 1 week Physical Exam Const: COMMON NORMALS: no apparent distress and oriented x3 GENERAL APPEARANCE: cooperative and comfortable NUTRITIONAL APPEARANCE: obese ORIENTATION/CONSCIOUSNESS: Yes awake HENMT: COMMON NORMALS: normocephalic, head/scalp atraumatic, hearing grossly normal bilaterally and moist oral mucous membranes HEAD & SCALP: normocephalic and atraumatic Eye: COMMON NORMALS: PERRL, EOMs intact bilaterally and conjunctivae normal CONJUNCTIVA: Yes conjunctivae normal PUPIL: Yes PERRL Neck/C-Spine: COMMON NORMALS: full ROM GENERAL: Yes normal visual inspection and Yes trachea midline Resp: COMMON NORMALS: normal respiratory effort, no retractions, no use of accessory muscles and clear to auscultation bilaterally EFFORT & INSPECTION: Yes able to speak in complete sentences, Yes symmetric chest movement and No tachypneic AUSCULTATION: clear to auscultation bilaterally Cardio: COMMON NORMALS: regular rate, regular rhythm, S1 normal heart sound, S2 normal heart sound and no murmurs RATE: regular rate RHYTHM: regular rhythm HEART SOUNDS: S1 normal and S2 normal GI: COMMON NORMALS: normal to inspection, nondistended, normoactive bowel sounds, soft to palpation and non-tender INSPECTION: Yes central obesity PALPATION: Yes soft Back/Pelvis: OTHER: -Noted kyphoscoliosis, scarring from previous back surgeries Extremity: COMMON NORMALS: normal to inspection, full ROM and no clubbing, cyanosis or edema; negative for no pedal edema NARRATIVE EXTREMITY EXAM: -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 Neuro: COMMON NORMALS: oriented x3, moves all extremities, no focal motor deficits, no sensory deficits noted and gait normal Psych: COMMON NORMALS: mental status grossly normal, thought process normal, cooperative, affect normal and speech normal SPEECH: Yes normal speech THOUGHT PROCESS: normal thought process Skin: COMMON NORMALS: no rashes or lesions noted, no jaundice, no petechiae and no mottling GENERAL SKIN EXAM: no rashes or lesions noted Discharge Data Data Completed and Pending: Completed Studies During Hospitalization Category Date Time Status CT angio chest PE protcl 70004 Rout ine Cat Scan 01/29/20 11:24 Completed XR chest 1V sin ble [id number] Routine Exams 01/29/20 07:00 Completed CV echo complete* [id number] Routine Ultrasound 01/29/20 01:07 [place] [id number] Routin e Ultrasound 01/29/20 11:56 [place] [id number] Routin e Ultrasound 01/29/20 01:10 Completed Pending at discharge Category Date Time Status Complete Blood Co unt w/Man Dif Rout ine Lab 02/01/20 10:08 Ordered Labs from last 24 hours 02/01/20 02/01/20 03:05 03:05 WBC 7.2 RBC 6.06 H Hgb 18.1 H Hct 60.8 H MCV 100.3 H MCH 29.9 MCHC 29.8 L D RDW 13.6 Plt Count 172 MPV 9.9 Neut % (Auto) 60.3 Lymph % (Auto) 23.3 Grady % (Auto) 13.6 Eos % (Auto) 1.9 Baso % (Auto) 0.6 Neut # (Auto) 4.4 Lymph # (Auto) 1.7 Grady # (Auto) 1.0 H Eos # (Auto) 0.1 Baso # (Auto) 0.0 Nucleated RBC % (a uto) 0 Nucleated RBCs # 0.0 Sodium 141 Potassium 3.9 Chloride 91 L Carbon Dioxide 37 H Anion Gap 7.9 BUN 21 Creatinine 0.8 GFR Calculation 97.6 Glucose 111 Calculated Osmolal ity 289 Calcium 9.7 Total Bilirubin 1.0 AST 16 ALT 16 Alkaline Phosphata se 94 Total Protein 7.6 Albumin 3.4 L Globulin 4.2 Vitals: Last Vital Signs Temp 98.2 F 02/01/20 04:00 Pulse 81 02/01/20 07:29 Resp 15 02/01/20 07:29 BP 130/74 02/01/20 07:29 Pulse Ox 95 02/01/20 07:29 Discharge Plan Discharge Patient Disposition: Home, Self-Care Condition: Stable Prescriptions: New levofloxacin 750 mg Tablet 750 mg PO DAILY@0600 5 Days Qty: 5 RF: 0 Continued Advair Diskus 250-50 mcg/dose Blister With Device 1 inh INHALATION Q12H RF: 0 nystatin-triamcinolone 100,000-0.1 unit/g-% Cream See Rx Instructions .ROUTE .COMPLEX RF: 0 albuterol sulfate 90 mcg/actuation Hfa Aerosol Inhaler 2 puff INHALATION 6XD PRN (Reason: Shortness Of Breath) RF: 0 ipratropium bromide 0.02 % Solution 0.5 mg INHALATION Q4H PRN (Reason: Shortness Of Breath Or Wheezing) RF: 0 Changed furosemide 20 mg Tablet 40 mg PO BID 30 Days Qty: 120 RF: 0 Discharge Orders: Discharge Order (Routine); Ordered 02/01/20 Ordered By: Nelsy Gomez Other Ambulatory Orders: DME: Oxygen (Order) Location: None Selected Ordered By: Nelsy Gomez Referrals: Marcos Aaron MD [Hospitalist] - 4-7 days (Post hospital discharge follow-up. Patient will need follow-up CBC as he was noted to have relative polycythemia and will require follow-up imaging secondary to right middle lobe and right lower lobe pulmonary nodules.) Discharge Diet: Cardiac Discharge Activity: Resume usual activity Discharge Attestations Time Spent in Discharge Care*: greater than 30 min Specific Discharge Activities: Specific discharge activities: educating patient, discussing with case therapist/social workers/dc planners, documenting/other paperwork and evaluating patient/reviewing data Status at Discharge: Cognitive status at discharge: cognitively intact , Behavioral status at discharge: cooperative , Functional status at discharge: independent ambulation Overall status at discharge: patient is back to baseline Quality Metrics Clinical Quality Measures During this hospital stay, did patient experience: None Coding Level of Care Code Acute Screener And Blender for Edwin Fwd Exam Comprehensive Diagnoses New onset of congestive heart failure I50.9 Acquired arm deformity M21.922 Laterality: left
[2020-02-01] MEDS: pantoprazole DR 40 mg Tablet PO (09:23)
[2020-02-01] MEDS: enoxaparin 40 mg/0.4 mL Syringe SUBCUT (09:23)
[2020-02-01] MEDS: sodium chloride 0.9% 1,000 ML 999 ML IV (09:23)
[2020-02-01] MEDS: FUROsemide 40 mg Tablet PO (09:23)
--- NOTE | 2020-02-01 10:35 | DCPLANNER ---
Per rounding; pt will be d/c'd today, watch for home 02 eval.
[2020-02-01 10:42] LABS: Hematocrit 59.2 % (42.0-52.0); Hemoglobin 17.7 g/dL (11.7-16.6); Mean Corpuscular HGB Conc 29.9 g/dL (30.0-36.0); Mean Corpuscular Hemoglobin 29.7 pg (28.0-34.0); Mean Corpuscular Volume 99.3 fL (80-94); Mean Platelet Volume 9.7 fL (7.4-10.4); Platelet Count 169 10^3/cmm (130-400); Red Blood Count 5.96 10^6/uL (4.1-5.3); Red Cell Distribution Width 13.8 % (12.1-15.1); White Blood Count 6.6 10^3/uL (4.0-10.0)
[2020-02-01 11:15] LABS: Absolute Eosinophils 0.1 10^3/cmm (0.0-0.7); Absolute Segmented Neutrophil 4.4 10/cmm (1.6-7.1); Eosinophils 3 %; Lymphocytes 27 %; Monocytes Absolute 0.2 10^3/cmm (0.1-0.6); Segmented Neutrophils 67 %; Total Cells Counted 100 (0-100)
[2020-02-01 11:16] LABS: Platelet Estimate Normal (Normal)
--- NOTE | 2020-02-01 11:44 | DCPLANNER ---
Pt qualifies for 02, he chooses HOME. Signs the choice form. We had not been triggered to see him so no interview was done, notified that he does qualify. Solar Applications Development Engineer faxes HOME, pt's is going to pick him up.
== END 2020-02-01 16:20 | disposition home or self-care (01) | DRG 291 ==
PROVIDERS: Internal Medicine; Admitting Provider Internal Medicine; Family Provider Nurse Practitioner Family; PCP Nurse Practitioner Family; Visit Provider Family Medicine
DX: I50.31 Acute diastolic (congestive) heart failure (principal); J18.9 Pneumonia, unspecified organism; J44.0 Chronic obstructive pulmonary disease with (acute) lower respiratory infection; M21.922 Unspecified acquired deformity of left upper arm; R91.8 Other nonspecific abnormal finding of lung field; D75.1 Secondary polycythemia; E66.01 Morbid (severe) obesity due to excess calories; Z68.37 Body mass index [BMI] 37.0-37.9, adult; M41.9 Scoliosis, unspecified; F17.220 Nicotine dependence, chewing tobacco, uncomplicated; K21.9 Gastro-esophageal reflux disease without esophagitis
CPT/HCPCS: 12345; 36415; 71045; 71275; 80048; 80053; 80061; 83036; 83735; 84443; 84484; 85007; 85025; 85027; 85378; 93306; 93971; 96372; 96375; G0378; G0379; J1650; J1940; J1956; J7030

== ENCOUNTER → 2021-01-05 11:20 | Outpatient (BNVA) | payer OTHER, SELFPAY | PROVIDERS: PCP Registered Nurse; Visit Provider Internal Medicine | DX: I50.9 Heart failure, unspecified (principal); J44.9 Chronic obstructive pulmonary disease, unspecified; R07.9 Chest pain, unspecified; Z01.812 Encounter for preprocedural laboratory examination; Z20.828 Contact with and (suspected) exposure to other viral communicable diseases | CPT/HCPCS: 87635 ==

== ENCOUNTER 2021-01-19 13:57 | Observation (INO) | payer OTHER, SELFPAY ==
[2021-01-18 14:23] VITALS: BMI 41.3
[2021-01-19] VITALS (18 sets, daily range): BP systolic 90–112; BP diastolic 50–86; PULSE 58–77; RESP 16–22; TEMP 36.4–37.1; O2SAT 92–99
[2021-01-19] MEDS: diphenhydrAMINE 50 mg Capsule PO (06:45)
--- NOTE | 2021-01-19 08:09 | PM.HP ---
Providers/Chief Complaint Primary Care Provider: ESTRELLA Lyons Chief Complaint: Left and Right Cardiac Catheterization History of Present Illness 65-year-old with past medical history of diastolic CHF, scoliosis, pulmonary nodules, history of multiple back surgeries, tobacco abuse, COPD who was referred to cardiology for assessment of chest pain symptoms. Patient was having severe, worsening chest pain for which he has been scheduled for left heart cath. He had an admission to hospital in January 2020 for CHF exacerbation. At that time an echocardiogram was performed however but secondary to poor quality pictures, accurate assessment of LV systolic function could not be done. He is on Lasix daily and says he has minimal lower extremity edema. 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 He does not smoke cigarettes however chews tobacco. Review of Systems General: Reports: 10 or more systems reviewed and unremarkable except in HPI and below Const: Reports: fatigue, change in sleep pattern and daytime sleepiness; Denies: fever(s), chills, body aches or malaise Eyes: Denies: change in vision or blurry vision ENMT: Denies: throat pain, odynophagia or nasal congestion Card: Reports: chest pain, swelling of feet/ankles, lightheadedness, pre-syncope, dyspnea on exertion and orthopnea; Denies: palpitations, irregular heart rhythm or syncope Resp: Reports: dyspnea and non-productive cough; Denies: productive cough or wheezing GI: Reports: nausea; Denies: abdominal pain, vomiting, hematemesis, heartburn, diarrhea, constipation, hematochezia or melena : Denies: flank pain, difficulty urinating, dysuria or urinary frequency Musc: Denies: neck pain, back pain or joint pain Skin/Breast: Denies: rash or pruritus Neuro: Reports: dizziness; Denies: headache(s), numbness in extremities, weakness in extremities or vertigo Psych: Denies: anxiety or depression Endo: Denies: polyuria or polydipsia Chaitanya/Lymph: Denies: easy bruising or easy bleeding Medications/Allergies Home Medications Medication Instructions Recorded Confirmed Last Taken Type furosemide 20 mg tablet 40 mg PO .COMPLEX 30 Days #0 tab 02/18/20 01/19/21 01/18/21 09:00 Rx potassium chloride 10 mEq 10 meq PO DAILY 08/31/20 01/19/21 01/18/21 09:00 History capsule,extended release cephalexin 500 mg tablet 500 mg PO BID #20 tab 01/09/21 01/19/21 01/18/21 09:00 Rx clotrimazole 1 % topical cream 1 applic TOPICAL TID 10 Days #45 g 01/09/21 01/19/21 01/17/21 10:00 Rx Allergies Allergy/AdvReac Type Severity Reaction Status Date / Time codeine Allergy ALGY-Rash Verified 01/19/21 06:56 PFSH Acute PFSH: Medical History Acquired arm deformity COPD (chronic obstructive pulmonary disease) Fixation hardware in spine GERD (gastroesophageal reflux disease) Hyperglycemia Kyphoscoliosis Scoliosis Tobacco chew use Surgical History H/O arthroscopy of shoulder History of appendectomy History of [place] fundoplication Hx of cholecystectomy Family History Father Cancer Social History Smoking and tobacco status: current every day smoker smokeless tobacco Smokeless tobacco user: chewing tobacco Smokeless tobacco details: 1 can daily Alcohol intake: never Housing: Condominium 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 [] NECK: No jugular vein distension. [] HEENT: No cyanosis. No icterus. No pallor. [] HEART: Regular S1 and S2. No murmur, rub or gallop. [] LUNGS: Clear to auscultate bilaterally. [] ABDOMEN: Soft, nontender and nondistended. Positive bowel sounds. No guarding, rebound or tenderness. [] CENTRAL NERVOUS SYSTEM: Grossly nonfocal. [] EXTREMITIES: Lower extremities with 1+ edema bilaterally. Pulses palpable in the lower extremities, both dorsalis pedis and posterior tibial. [] A&P Assessment and plan (1) Chest pain: Status: Acute (2) Congestive heart failure: Status: Acute (3) Tobacco chew use: Status: Acute (4) COPD (chronic obstructive pulmonary disease): Status: Acute Patient has been having worsening chest pain and shortness of breath symptoms. We will proceed with left heart cath with possible percutaneous coronary intervention. Risks and benefits of the procedure have been described to the patient. Risks including bleeding, infection, abnormal heart rhythm, kidney function worsening, heart attack, stroke or have been described. Patient understands the risks and benefits and wants to proceed with the procedure. Attestations Medical Necessity Statement*: Care not expected to cross 2 midnights. Patient coming in as outpatient for Yair angiography with possible percutaneous coronary intervention. Coding Level of Care Code Acute Adolescent Coordinator for [facility] Diagnoses Chest pain R07.9 Congestive heart failure I50.9 Tobacco chew use Z72.0 COPD (chronic obstructive pulmonary disease) J44.9
--- NOTE | 2021-01-19 08:50 | SUR.PHASEI ---
PROCEDURE ABORT NOTE Patient returned to [facility]. Procedure aborted at this time. Labs drawn. ABG drawn. Portable Xray ordered. Dr Guerra to discuss procedure abort with family and patient. Plan to admit for observation pending lab results. Associate Professor Of Automation aware. Call light within reach. No pain reported. Vitals stable and monitored continuously. Informed to call for needs.
[2021-01-19 08:58] LABS: ABG PCO2 89.8 mmHg (35-45); ABG PH Result 7.27 (7.35-7.45); Arterial Blood Gas Hematocrit 56.8 % (42-52); Base Excess ABG 8.6 mmol/L (-2.0-2.0); Blood Gas Allen Test Pos; Blood Gas Sample Site Radial, right; Blood Gas Sample Type Arterial; Carboxyhemoglobin 1.6 %THgb (0.4-20.1); HGB O2 Sat 76.1 % (95-100); Ionized Calcium Level - ABG 1.3 mmol/L (1.1-1.4); Methemoglobin 0.6 % (0.4-1.5); Oxygen Device ROOM AIR; Oxygen Saturation ABG 77.8; PO2 ABG 45.7 mmHg (80.0-100.0); Potassium Level - ABG 4.9 mmol/L (3.5-5.0); Total Hemoglobin 18.5 g/dL (14-18)
--- NOTE | 2021-01-19 09:02 | XR_ITS ---
WS: [id number] Portable AP upright chest, 01/19/2021 Clinical Data: pulmonary edema Comparison: Portable chest, 01/29/2020. Findings: There is marked chest deformity because of the severe dextroscoliosis. There is a long hetal extending from the upper thoracic spine in the lumbar spine to attempt to correct scoliosis. The hear t is slightly enlarged. The pulmonary vascularity is not increased. No nodules, masses or effusions a re seen. No pneumonia is present. There are clips in the upper abdomen from surgery. XR/XR chest 1V portable [id number] Impression: 1. Severe chest deformity from dextroscoliosis unchanged. 2. Cardiomegaly.
[2021-01-19 09:16] LABS: Basophils # 0.1 10^3/uL (0.0-0.1); Basophils % 0.7 %; Eosinophils # 0.1 10^3/uL (0.0-0.8); Hematocrit 57.8 % (42.0-52.0); Hemoglobin 17.5 g/dL (11.7-16.6); Lymphocytes # 2.5 10^3/uL (0.8-4.8); Lymphocytes % 35.4 %; Mean Corpuscular HGB Conc 30.3 g/dL (30.0-36.0); Mean Corpuscular Hemoglobin 31.4 pg (28.0-34.0); Mean Corpuscular Volume 103.8 fL (80-94); Mean Platelet Volume 10.4 fL (7.4-10.4); Monocytes # 0.9 10^3/uL (0.2-0.9); Monocytes % 12.6 %; Neutrophils # 3.48 10^3/uL (1.8-7.7); Neutrophils % 48.9 %; Nucleated Red Blood Cells % 0 %; Platelet Count 170 10^3/cmm (130-400); Red Blood Count 5.57 10^6/uL (4.1-5.3); Red Cell Distribution Width 13.2 % (12.1-15.1); White Blood Count 7.1 10^3/uL (4.0-10.0)
--- NOTE | 2021-01-19 09:44 | SUR.PHASEI ---
ABG RESULTS Called to Dr Guerra. States he wants a redraw now. Noted.
[2021-01-19 10:40] LABS: ABG PH Result 7.24 (7.35-7.45); Arterial Blood Gas Hematocrit 55.1 % (42-52); Base Excess ABG 8.5 mmol/L (-2.0-2.0); Blood Gas Allen Test Pos; Blood Gas LPM 2.5 %; Blood Gas Operator Identificat glc; Blood Gas Sample Site Radial, right; Blood Gas Sample Type Arterial; HCO3 ABG 41.6 mmol/L (22-26); Oxygen Device OXY MASK
[2021-01-19 10:45] LABS: ABG PCO2 97.8 mmHg (35-45)
--- NOTE | 2021-01-19 10:50 | SUR.PHASEI ---
Transfer ABG results back and abnormal. Notified Dr Guerra. Patient needs BIPAP and will stay overnight. Report to Gracie on 2N. Transferred via bed. RT aware and will set up bipap on arrival to floor. Discharged in stable condition.
--- NOTE | 2021-01-19 10:58 | PC.NURSE ---
Pt brought to floor by Abdirashid, RN, and Robe, RN. Bipap applied by RT Geri. Nursing assessment completed by this RN. Dr. Guerra called for further orders as there were no orders to transfer. Dr. Guerra said he will see the pt after clinic today, ABG to be drawn again in 2-4 hours. Pt is here for observation.
[2021-01-19 12:43] LABS: Anion Gap 7.2 (5-19); Blood Urea Nitrogen 13 mg/dL (8-23); Calcium 8.8 mg/dL (8.5-10.5); Chloride 97 mmol/L (98-107); Glomerular Filtration Rate 113.5 mL/min (90-130); Glucose 85 mg/dL (65-115); NT Pro B Type Natriuretic Pept 592 pg/mL (0-125); Osmolality Calculated 289 mOsm/kg (285-295); Potassium 5.2 mmol/L (3.5-5.1); Sodium 140 mmol/L (136-145)
[2021-01-19 12:57] LABS: Carbon Dioxide 41 mmol/L (22-29)
[2021-01-19 14:01] LABS: Alveolar-Arterial Oxygen Gradi 6.3 mmHg (5-10); Arterial Blood Gas Hematocrit 53.7 % (42-52); Base Excess ABG 10.6 mmol/L (-2.0-2.0); Blood Gas Allen Test Pos; Blood Gas Operator Identificat GD; Blood Gas Sample Site Radial, right; Blood Gas Sample Type Arterial; Carboxyhemoglobin 1.6 %THgb (0.4-20.1); HCO3 ABG 42.2 mmol/L (22-26); HGB O2 Sat 90.4 % (95-100); Ionized Calcium Level - ABG 1.2 mmol/L (1.1-1.4); Methemoglobin 0.5 % (0.4-1.5); Oxygen Device BIPAP; Oxygen Saturation ABG 92.3; PO2 ABG 65.2 mmHg (80.0-100.0); Potassium Level - ABG 4.6 mmol/L (3.5-5.0); Total Hemoglobin 17.5 g/dL (14-18)
[2021-01-19 16:22] LABS: ABG PCO2 86.1 mmHg (35-45)
--- NOTE | 2021-01-19 17:55 | P.EN_ITS ---
Event Note Event Note: Patient was brought to Chief Deputy Clerk/Bailiff for coronary angiography. He has likely obesity hypoventilation syndrome with chronic CO2 retention. Before initiation of procedure he was given no oversight and fentanyl. Few minutes later patient was noted to have stopped breathing and oxygen saturation started dropping. Oropharyngeal airway was put in. Patient was immediately given reversal agents including Narcan and flumazenil. He started spontaneous breathing right after that. He was oriented x3. He was responding appropriately. Labs were sent and ABG was performed. ABG showed significant hypercapnia and hypoxia. Patient was put on BiPAP. Decision was made to observe patient overnight in the hospital. We will repeat ABG later.
[2021-01-20] VITALS (13 sets, daily range): BP systolic 101–104; BP diastolic 60–72; PULSE 58–77; RESP 14–22; TEMP 36.3–36.7; O2SAT 92–99
[2021-01-20] MEDS: FUROsemide 10 mg/mL SDV 4mL 40 MG IVP (14:22)
--- NOTE | 2021-01-20 14:27 | PM.PN ---
Subjective Subjective: Interval history: Patient still short of breath but overall stable Medications: Reviewed: Yes Vitals/I&O/Wt Last Vital Signs Temp 98.1 F 01/20/21 12:27 Pulse 67 01/20/21 12:27 Resp 18 01/20/21 12:27 BP 101/60 01/20/21 12:27 Pulse Ox 96 01/20/21 12:27 01/19/21 01/20/21 01/20/21 22:59 06:59 14:59 Intake Total 480 / 480 Output Total 175 / 175 550 / 725 Balance -175 / -175 -550 / -725 480 / 480 Physical Exam Narrative: EXAM NARRATIVE: GENERAL: Patient is alert, awake and oriented x3. NECK: No jugular vein distension. HEENT: No cyanosis. No icterus. No pallor. HEART: Regular S1 and S2. No murmur, rub or gallop. LUNGS: Inspiratory crackles in the bases bilaterally. ABDOMEN: Soft, nontender and nondistended. Positive bowel sounds. No guarding, rebound or tenderness. CENTRAL NERVOUS SYSTEM: Grossly nonfocal. EXTREMITIES: Lower extremities with 1+ edema bilaterally. Data : 01/19/21 09:01 01/19/21 12:09 A&P Assessment and plan (1) Chest pain: Status: Acute (2) Congestive heart failure: Status: Acute (3) Tobacco chew use: Status: Acute (4) COPD (chronic obstructive pulmonary disease): Status: Acute Appear to be stable from a coronary disease perspective denies any chest pain at the moment. He is volume overloaded I will give him extra of IV Lasix 40 mg. Potassium is 5.2 therefore I will hold onto the potassium. Overall breathing better but still on oxygen. Continue COPD treatment with nebulizer. I will hold his admission today since he is in decompensated heart failure. And plan to discharge him tomorrow on p.o. medicine Attestations Medical Necessity Statement*: Patient require continuation hospitalization for above defined care. 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
--- NOTE | 2021-01-20 14:30 | PC.NURSE ---
Educated patient on congestive heart failure signs and symptoms. Patient seemed reluctant to learn.
[2021-01-20 15:55] LABS: Basophils % 0.5 %; Eosinophils # 0.2 10^3/uL (0.0-0.8); Eosinophils % 3.4 %; Hematocrit 57.5 % (42.0-52.0); Hemoglobin 17.3 g/dL (11.7-16.6); Lymphocytes # 1.6 10^3/uL (0.8-4.8); Lymphocytes % 27.3 %; Mean Corpuscular HGB Conc 30.1 g/dL (30.0-36.0); Mean Corpuscular Hemoglobin 31.5 pg (28.0-34.0); Mean Corpuscular Volume 104.7 fL (80-94); Mean Platelet Volume 11.2 fL (7.4-10.4); Monocytes # 0.7 10^3/uL (0.2-0.9); Monocytes % 11.1 %; Neutrophils # 3.39 10^3/uL (1.8-7.7); Neutrophils % 57.2 %; Nucleated Red Blood Cells % 0 %; Platelet Count 187 10^3/cmm (130-400); Positive C 1; Red Blood Count 5.49 10^6/uL (4.1-5.3); White Blood Count 5.9 10^3/uL (4.0-10.0)
[2021-01-21] VITALS (10 sets, daily range): BP systolic 88–115; BP diastolic 52–72; PULSE 64–77; RESP 17–20; TEMP 36.4–36.8; O2SAT 96–98
--- NOTE | 2021-01-21 06:02 | PC.NURSE ---
BMP lab cancelled yesterday by lab. New order for BMP ordered this am by this nurse.
[2021-01-21 07:16] LABS: Blood Urea Nitrogen 16 mg/dL (8-23); Calcium 8.8 mg/dL (8.5-10.5); Carbon Dioxide 39 mmol/L (22-29); Chloride 96 mmol/L (98-107); Glomerular Filtration Rate 113.5 mL/min (90-130); Glucose 97 mg/dL (65-115); Osmolality Calculated 291 mOsm/kg (285-295); Sodium 140 mmol/L (136-145)
[2021-01-21 07:50] LABS: Anion Gap 10.2 (5-19)
[2021-01-21 07:51] LABS: Potassium 5.2 mmol/L (3.5-5.1)
--- NOTE | 2021-01-21 12:30 | P.DS_ITS ---
Discharge Providers Date of Admission: 01/19/21 13:57 Date of Discharge: January 21, 2021 Attending Provider at Admission: Darryl Guerra M.D Attending Provider at Discharge: Darryl Guerra M.D Primary Care Provider: ESTRELLA Lyons Diagnoses at Discharge Discharge Diagnosis (1) Chest pain: Status: Acute (2) Congestive heart failure: Status: Acute (3) Tobacco chew use: Status: Acute (4) COPD (chronic obstructive pulmonary disease): Status: Acute Reason for Visit Reason for Visit: Left and Right Cardiac Catheterization Hospital Course Hospital Course 65-year-old male past medical history significant for CHF, obesity, scoliosis, COPD on oxygen was admitted after an attempt for left heart cath while during conscious sedation he was noted to be apneic which was reversed immediately with Narcan and flumazenil. Patient carries diagnosis of COPD who is oxygen dependent at the same time he was thought to have severe sleep apnea. He was admitted to the hospital and monitored for high CO2 retention meanwhile he was also noted to be in decompensated heart failure he was diuresed with IV Lasix. His potassium was high despite of normal creatinine possibly due to hemolysis. Today he appeared to be in compensated state of heart failure, he is oxygen dependent he has scoliosis and possible coronary artery disease for which he will be treated. We will discharge him to follow-up with Dr. Guerra and pulmonary. Patient has been advised not to drive unless cleared by cardiology and pulmonary. I will also increase his Lasix to 60 mg in the morning and potassium to 20 mg. Before discharge I will check his potassium. Currently denies any chest pain orthopnea. Physical Exam Narrative: EXAM NARRATIVE: GENERAL: Patient is alert, awake and oriented x3. Scoliosis NECK: No jugular vein distension. HEENT: No cyanosis. No icterus. No pallor. HEART: Regular S1 and S2. No murmur, rub or gallop. LUNGS: Clear to auscultate bilaterally. ABDOMEN: Soft, nontender and nondistended. Positive bowel sounds. No guarding, rebound or tenderness. CENTRAL NERVOUS SYSTEM: Grossly nonfocal. EXTREMITIES: Lower extremities with 1+ edema bilaterally. Discharge Data Data Completed and Pending: Completed Studies During Hospitalization Category Date Time Status CXRP [XR chest 1V portable [id number]] R outine Exams 01/19/21 09:02 Completed Labs from last 24 hours 01/21/21 01/20/21 06:15 15:20 WBC 5.9 RBC 5.49 H Hgb 17.3 H Hct 57.5 H MCV 104.7 H MCH 31.5 MCHC 30.1 RDW 13.0 Plt Count 187 MPV 11.2 H Neut % (Auto) 57.2 Lymph % (Auto) 27.3 Wright % (Auto) 11.1 Eos % (Auto) 3.4 Baso % (Auto) 0.5 Neut # (Auto) 3.39 Lymph # (Auto) 1.6 Wright # (Auto) 0.7 Eos # (Auto) 0.2 Baso # (Auto) 0.0 Nucleated RBC % (a uto) 0 Nucleated RBCs # 0.0 Sodium 140 Potassium 5.2 H Chloride 96 L Carbon Dioxide 39 H Anion Gap 10.2 BUN 16 Creatinine 0.7 GFR Calculation 113.5 Glucose 97 Calculated Osmolal ity 291 Calcium 8.8 Vitals: Last Vital Signs Temp 98.0 F 01/21/21 08:00 Pulse 65 01/21/21 08:00 Resp 18 01/21/21 08:00 BP 104/70 01/21/21 08:00 Pulse Ox 97 01/21/21 08:00 Discharge Plan Discharge Patient Disposition: Home Condition: Stable Prescriptions: Continued cephalexin 500 mg tablet 500 mg PO BID Qty: 20 RF: 0 clotrimazole [Antifungal (clotrimazole)] 1 % cream 1 applic topical TID 10 Days Qty: 45 RF: 1 Changed potassium chloride 10 mEq capsule, extended release 20 meq PO DAILY Qty: 0 RF: 0 furosemide 20 mg tablet 60 mg PO DAILY 30 Days Qty: 0 RF: 0 Discharge Orders: Discharge Order (Routine); Ordered 01/21/21 Ordered By: Isabelle Hsu Referrals: MarcrDelta MD [Physician] - (COPD) Darryl Guerra M.D [Physician] - (Please call Friday to schedule a follow up appointment.) Discharge Diet: Cardiac and Low Salt Discharge Activity: Increase activity as tolerated Patient Instructions: COPD, Heart Failure (DC), Chest Pain (GEN), CHF Stoplight, COPD Stoplight, Chest Pain Stoplight Activity Restrictions/Additional Instructions: Follow-up with Dr. Salazar in cardiology in 7 days or Lina Alcaraz in 7 days whichever is available. Please refer to pulmonology. Keep a log of blood pressure pulse daily weight. Check Chem-7 in 3 to 4 days. Please follow-up wi th your regular doctor and Dr. Guerra who will assess you for released to go back to work. 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
[2021-01-21] MEDS: FUROsemide 10 mg/mL SDV 4mL 40 MG IVP (14:04)
--- NOTE | 2021-01-21 15:05 | PC.NURSE ---
Patient educated on CHF Stop light and COPD stoplight as well as tripod breathing for shortness of breath. Educated patient and family on taking medications as prescribed and to not stop or hold medications unless speaking with a doctor and to follow up with primary care physician as scheduled. Patient also told per Dr. Hsu that he is not to return to work until released by his PCP. Patient and family stated understanding. Work release as well as discharge instructions fully explained to patient. IV discontinued from patients right wrist. Tip of catheter intact. Patient tolerated well. Patient discharged per private vehicle.
[2021-01-21 15:15] LABS: Anion Gap 8.2 (5-19); Blood Urea Nitrogen 16 mg/dL (8-23); Chloride 94 mmol/L (98-107); Glomerular Filtration Rate 113.5 mL/min (90-130); Glucose 145 mg/dL (65-115); Osmolality Calculated 292 mOsm/kg (285-295); Potassium 4.2 mmol/L (3.5-5.1); Sodium 139 mmol/L (136-145)
[2021-01-21 15:19] LABS: Carbon Dioxide 41 mmol/L (22-29)
--- NOTE | 2021-01-22 19:24 | PC.RESP ---
Smoking Cessation information sent to patient.
== END 2021-01-21 16:00 | disposition home or self-care (01) ==
LOC: MEDSURG 13:58
PROVIDERS: Internal Medicine Cardiovascular Disease; Admitting Provider Internal Medicine; PCP Registered Nurse; Visit Provider Internal Medicine
DX: R07.9 Chest pain, unspecified (principal); I50.9 Heart failure, unspecified; F17.220 Nicotine dependence, chewing tobacco, uncomplicated; J44.9 Chronic obstructive pulmonary disease, unspecified; E66.9 Obesity, unspecified; Z68.41 Body mass index [BMI] 40.0-44.9, adult; Z99.81 Dependence on supplemental oxygen
CPT/HCPCS: 36415; 36600; 71045; 80048; 80051; 82330; 82803; 82805; 83880; 85025; 94660; C1769; G0378; J0330; J1644; J1940; J2250; J2310; J3010; J3490; J7030; Q0163

== ENCOUNTER → 2021-01-29 16:28 | Outpatient (BNVA) | payer OTHER, SELFPAY | PROVIDERS: PCP Registered Nurse; Visit Provider Internal Medicine | DX: I50.32 Chronic diastolic (congestive) heart failure (principal) | CPT/HCPCS: 80048; 83880 ==

== ENCOUNTER → 2021-02-12 09:14 | Outpatient (BNVA) | payer OTHER, SELFPAY | PROVIDERS: PCP Registered Nurse; Visit Provider Internal Medicine Pulmonary Disease | DX: Z20.822 Contact with and (suspected) exposure to COVID-19 (principal); J44.9 Chronic obstructive pulmonary disease, unspecified | CPT/HCPCS: 87635 ==

== ENCOUNTER 2021-02-15 07:13 | Outpatient (CLI) | payer OTHER, SELFPAY ==
--- NOTE | 2021-02-15 08:52 | PFTS_ITS ---
Date of Study:02/15/21 Date of Dictation: 02/16/2021 MECHANICS: Postbronchodilator forced vital capacity (FVC) is reduced. Postbronchodilator forced expiratory volume in one second (FEV1) is very severely reduced 27%. FEV1/FVC is normal. There is significant response to bronchodilators. FLOW VOLUME LOOP: Suggestive of significant restriction. LUNG VOLUMES: Not measured DIFFUSING CAPACITY FOR CARBON MONOXIDE: Mildly reduced 69% . INTERPRETATION: The spirometry suggestive of severe restriction. Lung volumes not measured. Mildly reduced gas transfer. Restriction out of proportion to gas transfer, possible coexisting extrathoracic restrictive disease. Correlate clinically. MTDD
== END 2021-02-15 07:14 | disposition home or self-care (01) ==
LOC: RT 07:19
PROVIDERS: PCP Registered Nurse; Visit Provider Internal Medicine Pulmonary Disease
DX: J44.9 Chronic obstructive pulmonary disease, unspecified (principal); J98.4 Other disorders of lung; M41.9 Scoliosis, unspecified
CPT/HCPCS: 94060; 94618; 94729; J7611

== ENCOUNTER 2021-02-15 20:00 | Outpatient (CLI) | payer OTHER, SELFPAY | END 2021-02-15 20:01 | disposition home or self-care (01) | LOC: SLEEP 02-16 09:28 | PROVIDERS: PCP Registered Nurse; Visit Provider Internal Medicine Pulmonary Disease | DX: G47.33 Obstructive sleep apnea (adult) (pediatric) (principal); E66.9 Obesity, unspecified; J96.12 Chronic respiratory failure with hypercapnia | CPT/HCPCS: 95810 ==

== ENCOUNTER 2021-03-09 11:17 | Emergency (ER) | payer OTHER, SELFPAY ==
[2021-03-09] VITALS (8 sets, daily range): BP systolic 98–118; BP diastolic 62–69; PULSE 61–82; RESP 15–24; TEMP 37.1; O2SAT 91–100; BMI 41.5
--- NOTE | 2021-03-09 11:27 | XR_ITS ---
WS: [id number] Portable AP upright chest, 03/09/2021 Clinical Data: SOB Comparison: Portable chest, 01/19/2021. Findings: The chest deformity with a dextroscoliosis of thoracic spine is noted. There is a hetal exten ding from the upper thoracic into the lumbar spine to correct the scoliosis. The heart is slightly en larged. No nodules, masses or effusions are seen. The pulmonary vascularity is not increased. No pneu monia or pneumothorax is seen. There are upper abdominal clips from surgery. XR/XR chest 1V portable [id number] Impression: 1. Cardiomegaly. 2. Severe dextroscoliosis of the thoracic spine.
--- NOTE | 2021-03-09 11:27 | ECG_ITS ---
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 Measurements Intervals [place] Rate: 80 P: 57 MS: 150 QRS: 12 QRSD: 98 T: -2 QT: 338 QTc: 392 Interpretive Statements SINUS RHYTHM WITH OCCASIONAL SUPRAVENTRICULAR PREMATURE COMPLEXES INDETERMINATE AXIS LOW QRS VOLTAGE IN PRECORDIAL LEADS [QRS DEFLECTION < 1.0 mV IN CHEST LEADS] INCOMPLETE RIGHT BUNDLE BRANCH BLOCK NONSPECIFIC T-WAVE ABNORMALITY Compared to ECG 02/24/2018 17:45:37 Low QRS voltage now present T-wave abnormality now present Electronically Signed On 03-10-2021 5:18:36 CDT by Hilary Ho M.D. [id number]
--- NOTE | 2021-03-09 13:27 | ECG_ITS ---
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 Measurements Intervals [place] Rate: 68 P: 51 CO: 160 QRS: -3 QRSD: 109 T: 1 QT: 387 QTc: 412 Interpretive Statements SINUS RHYTHM WITH OCCASIONAL SUPRAVENTRICULAR PREMATURE COMPLEXES LOW QRS VOLTAGE IN PRECORDIAL LEADS [QRS DEFLECTION < 1.0 mV IN CHEST LEADS] INCOMPLETE RIGHT BUNDLE BRANCH BLOCK [90+ ms QRS DURATION, TERMINAL R IN V1/V2, 40+ ms S IN I/aVL/V4/V5/V6] NONSPECIFIC T-WAVE ABNORMALITY Compared to ECG 03/09/2021 11:52:40 Indeterminate axis no longer present T-wave abnormality still present Electronically Signed On 03-10-2021 5:23:54 CDT by Hilary Ho M.D. [id number]
[2021-03-09 13:33] LABS: Basophils % 0.4 %; Eosinophils # 0.2 10^3/uL (0.0-0.8); Eosinophils % 2.3 %; Hemoglobin 16.5 g/dL (11.7-16.6); Lymphocytes # 1.8 10^3/uL (0.8-4.8); Mean Corpuscular HGB Conc 31.1 g/dL (30.0-36.0); Mean Corpuscular Hemoglobin 31.3 pg (28.0-34.0); Mean Corpuscular Volume 100.4 fL (80-94); Mean Platelet Volume 9.6 fL (7.4-10.4); Monocytes # 0.8 10^3/uL (0.2-0.9); Monocytes % 11.5 %; Neutrophils # 4.21 10^3/uL (1.8-7.7); Neutrophils % 59.5 %; Nucleated Red Blood Cells % 0 %; Platelet Count 156 10^3/cmm (130-400); Red Blood Count 5.28 10^6/uL (4.1-5.3); Red Cell Distribution Width 12.2 % (12.1-15.1); White Blood Count 7.1 10^3/uL (4.0-10.0)
[2021-03-09 14:53] LABS: Alanine Aminotransferase 22 U/L (0-41); Albumin Level 3.8 g/dL (3.5-5.2); Alkaline Phosphatase 97 IU/L (40-130); Anion Gap 8.7 (5-19); Aspartate Amino Transferase 18 U/L (0-40); Blood Urea Nitrogen 12 mg/dL (8-23); Calcium 8.9 mg/dL (8.5-10.5); Chloride 90 mmol/L (98-107); Globulin 3.1 g/dL (1.3-4.6); Glomerular Filtration Rate 135.6 mL/min (90-130); Glucose 91 mg/dL (65-115); Osmolality Calculated 285 mOsm/kg (285-295); Potassium 3.7 mmol/L (3.5-5.1); Sodium 138 mmol/L (136-145); Total Bilirubin 0.5 mg/dL (0.15-1.2); Total Protein 6.9 g/dL (6.6-8.7); Troponin(5th) Baseline 10 ng/L (0-15)
[2021-03-09 15:02] LABS: NT Pro B Type Natriuretic Pept 111 pg/mL (0-125)
[2021-03-09 15:13] LABS: Carbon Dioxide 43 mmol/L (22-29)
[2021-03-09 15:38] LABS: ABG PH Result 7.38 (7.35-7.45); Arterial Blood Gas Hematocrit 49.7 % (42-52); Base Excess ABG 16.5 mmol/L (-2.0-2.0); Blood Gas Allen Test Pos; Blood Gas Sample Site Radial, right; Blood Gas Sample Type Arterial; HCO3 ABG 46.9 mmol/L (22-26); Oxygen Device NC
--- NOTE | 2021-03-09 16:04 | ED_ITS ---
HPI - SOB/Dyspnea General: Chief Complaint: Shortness of Breath/Dyspnea Stated Complaint: SOB Time Seen by Provider: 03/09/21 12:43 Source: patient, family () and old records reviewed Mode of arrival: ambulatory Limitations: no limitations History of Present Illness: HPI Narrative: Patient is a 65-year-old male with a history of congestive heart failure, COPD, severe scoliosis, with chronic respiratory failure on oxygen at home. He recently had the first part of his sleep study done and is awaiting the second part of the sleep study. He has been having worsening SOB for a few days and today it got even worse. His is present during the evaluation and she says that she found him on the floor today. When i asked why he was on the floor, he said he did not fall and lowered himself to the floor because he thought it would be more comfortable. He denies any fever, but has some cough. MD elicited complaint: shortness of breath and cough Pertinent past history: COPD and congestive heart failure Onset (ago): day(s) (4) Timing: constant Severity: moderate Exacerbating factors: lying flat Relieving factors: nothing Known history of: COPD, congestive heart failure and other (Restrictive lung disease) Associated symptoms: Reports cough; Deny abdominal pain, chest congestion, chest pain, diaphoresis, dizziness, extremity pain, fever(s), hemoptysis, lightheadedness, myalgias, nausea, orthopnea, palpitations, paresthesias, polydipsia, polyuria, rash, sense of impending doom, syncope or vomiting Treatment prior to arrival: oxygen Review of Systems General: Reports: 10 or more systems reviewed and unremarkable except in HPI and below Const: Denies: fever(s) or diaphoresis Card: Denies: chest pain, palpitations, lightheadedness, syncope or orthopnea Resp: Denies: hemoptysis or chest congestion GI: Denies: abdominal pain, nausea or vomiting Musc: Denies: extremity pain Neuro: Denies: dizziness Endo: Denies: polyuria or polydipsia PFSH ED PFSH: Medical History Acquired arm deformity COPD (chronic obstructive pulmonary disease) Fixation hardware in spine GERD (gastroesophageal reflux disease) Hyperglycemia Kyphoscoliosis Obesity Scoliosis Tobacco chew use Surgical History H/O arthroscopy of shoulder History of appendectomy History of [place] fundoplication Hx of cholecystectomy Family History Father Cancer Social History Smoking and tobacco status: current every day smoker smokeless tobacco Smokeless tobacco user: chewing tobacco Smokeless tobacco details: 1 can daily Alcohol intake: never Housing: [facility] 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 Physical Exam Const: COMMON NORMALS: no acute distress, average body habitus, patient oriented x3, no limitations, healthy appearing, alert and well nourished HENMT: COMMON NORMALS: normocephalic, atraumatic and moist oral mucous membranes HEAD & SCALP: normocephalic and atraumatic Neck/C-Spine: COMMON NORMALS: no meningeal signs and no JVD Resp: COMMON NORMALS: normal respiratory effort, No retractions, No use of accessory muscles and percussion normal AUSCULTATION: rales bilateral at the base and diminished lung sounds PERCUSSION: percussion normal Cardio: COMMON NORMALS: no JVD, regular rate, regular rhythm, S1 normal heart sound present, S2 normal heart sound present, No gallops present (Cardio), No clicks present (Cardio), No murmurs present (Cardio), No rub (Cardio) and Peripheral pulses 2+ throughout RATE: regular rate RHYTHM: regular rhythm HEART SOUNDS: S1 normal heart sound present and S2 normal heart sound present PERIPHERAL PULSES: Peripheral pulses 2+ throughout GI: COMMON NORMALS: Normal to inspection, nondistended, normoactive bowel sounds present, Soft to palpation, non-tender, No hepatosplenomegaly present, no masses and no bruits PALPATION: Yes Soft to palpation and Yes No hepatosplenomegaly present Extremity: COMMON NORMALS: normal to inspection, full ROM, capillary refill normal and no calf tenderness GENERAL: Yes edema Neuro: COMMON NORMALS: patient oriented x3 SENSORIUM/ORIENTATION: Yes alert MENINGEAL SIGNS: Yes no meningeal signs Course Reevaluation(s): Reevaluation #1: Discussed his lab and imaging findings with him. Explained that his symptoms are likely due to COPD exacerbation and will be discharged home on oral steroids as well as albuterol breathing treatments. He is advised to follow-up with his lawn and garden technician and to complete his sleep study as scheduled. He voiced understanding and is in agreement with the plan. Time: 16:05 Vital Signs: Vital signs: Vital Signs Temperature 98.7 F 03/09/21 11:43 Pulse Rate 61 03/09/21 16:37 Respiratory Rate 18 03/09/21 16:37 Blood Pressure 108/69 03/09/21 16:37 Pulse Oximetry 98 03/09/21 16:37 MDM - SOB/Dyspnea MDM Narrative: Medical decision making narrative: 65-year-old male who presented to the emergency department with shortness of breath. In the emergency department evaluation shows he is significantly hypercapnic but this appears to be his baseline when compared to his CO2 levels on other blood gases. pH is normal so he is compensated. Mental status is normal. He is discharged home with a prescription for oral steroids and breathing treatments. Medical Records: Attestation: I reviewed the patient's medical records. Lab Data: Attestation: I reviewed the patient's lab results. Labs: Lab Results 03/09/21 03/09/21 03/09/21 Range/Units 13:20 13:20 13:20 WBC 7.1 (4.0-10.0) 10^3/ uL RBC 5.28 (4.1-5.3) 10^6/u L Hgb 16.5 (11.7-16.6) g/dL Hct 53.0 H (42.0-52.0) % MCV 100.4 H (80-94) fL MCH 31.3 (28.0-34.0) pg MCHC 31.1 (30.0-36.0) g/dL RDW 12.2 (12.1-15.1) % Plt Count 156 (130-400) 10^3/c mm MPV 9.6 (7.4-10.4) fL Neut % (Auto) 59.5 % Lymph % (Auto) 26.0 % [place] % (Auto) 11.5 % Eos % (Auto) 2.3 % Baso % (Auto) 0.4 % Neut # (Auto) 4.21 (1.8-7.7) 10^3/u L Lymph # (Auto) 1.8 (0.8-4.8) 10^3/u L [place] # (Auto) 0.8 (0.2-0.9) 10^3/u L Eos # (Auto) 0.2 (0.0-0.8) 10^3/u L Baso # (Auto) 0.0 (0.0-0.1) 10^3/u L Nucleated RBC % (a uto) 0 % Nucleated RBCs # 0.0 /100WBC Specimen Type Sample Site ABG pH (7.35-7.45) ABG pCO2 (35-45) mmHg ABG pO2 (80.0-100.0) mmH g ABG HCO3 (22-26) mmol/L ABG Base Excess (-2.0-2.0) mmol/ L Humberto Test Hematocrit (42-52) % O2 Delivery Device O2 Liters/Min % Embedded Software Engineer ID Sodium Cancelled Potassium Cancelled Chloride Cancelled Carbon Dioxide Cancelled Anion Gap Cancelled BUN Cancelled Creatinine Cancelled GFR Calculation Cancelled Glucose Cancelled Calculated Osmolal ity Cancelled Calcium Cancelled Total Bilirubin Cancelled AST Cancelled ALT Cancelled Alkaline Phosphata se Cancelled Troponin T Baselin e Cancelled Troponin T 120 Min [place] Delta Troponin T NT-Pro-B Natriuret Pep (0-125) pg/mL Total Protein Cancelled Albumin Cancelled Globulin Cancelled 03/09/21 03/09/21 03/09/21 Range/Units 14:15 14:15 14:15 WBC (4.0-10.0) 10^3/ uL RBC (4.1-5.3) 10^6/u L Hgb (11.7-16.6) g/dL Hct (42.0-52.0) % MCV (80-94) fL MCH (28.0-34.0) pg MCHC (30.0-36.0) g/dL RDW (12.1-15.1) % Plt Count (130-400) 10^3/c mm MPV (7.4-10.4) fL Neut % (Auto) % Lymph % (Auto) % [place] % (Auto) % Eos % (Auto) % Baso % (Auto) % Neut # (Auto) (1.8-7.7) 10^3/u L Lymph # (Auto) (0.8-4.8) 10^3/u L [place] # (Auto) (0.2-0.9) 10^3/u L Eos # (Auto) (0.0-0.8) 10^3/u L Baso # (Auto) (0.0-0.1) 10^3/u L Nucleated RBC % (a uto) % Nucleated RBCs # /100WBC Specimen Type Sample Site ABG pH (7.35-7.45) ABG pCO2 (35-45) mmHg ABG pO2 (80.0-100.0) mmH g ABG HCO3 (22-26) mmol/L ABG Base Excess (-2.0-2.0) mmol/ L Humberto Test Hematocrit (42-52) % O2 Delivery Device O2 Liters/Min % Embedded Software Engineer ID Sodium 138 Potassium 3.7 Chloride 90 L Carbon Dioxide 43 H* Anion Gap 8.7 BUN 12 Creatinine 0.6 L GFR Calculation 135.6 H Glucose 91 Calculated Osmolal ity 285 Calcium 8.9 Total Bilirubin 0.5 AST 18 ALT 22 Alkaline Phosphata se 97 Troponin T Baselin e 10 Troponin T 120 Min [place] Delta Troponin T NT-Pro-B Natriuret Pep 111 (0-125) pg/mL Total Protein 6.9 Albumin 3.8 Globulin 3.1 03/09/21 03/09/21 Range/Units 15:28 16:15 WBC (4.0-10.0) 10^3/ uL RBC (4.1-5.3) 10^6/u L Hgb (11.7-16.6) g/dL Hct (42.0-52.0) % MCV (80-94) fL MCH (28.0-34.0) pg MCHC (30.0-36.0) g/dL RDW (12.1-15.1) % Plt Count (130-400) 10^3/c mm MPV (7.4-10.4) fL Neut % (Auto) % Lymph % (Auto) % [place] % (Auto) % Eos % (Auto) % Baso % (Auto) % Neut # (Auto) (1.8-7.7) 10^3/u L Lymph # (Auto) (0.8-4.8) 10^3/u L [place] # (Auto) (0.2-0.9) 10^3/u L Eos # (Auto) (0.0-0.8) 10^3/u L Baso # (Auto) (0.0-0.1) 10^3/u L Nucleated RBC % (a uto) % Nucleated RBCs # /100WBC Specimen Type Arterial Sample Site Radial, right ABG pH 7.38 (7.35-7.45) ABG pCO2 80.0 H* (35-45) mmHg ABG pO2 171.0 H (80.0-100.0) mmH g ABG HCO3 46.9 H (22-26) mmol/L ABG Base Excess 16.5 H (-2.0-2.0) mmol/ L Humberto Test Pos Hematocrit 49.7 (42-52) % O2 Delivery Device Nc O2 Liters/Min 4.0 % Embedded Software Engineer ID jmn Sodium Potassium Chloride Carbon Dioxide Anion Gap BUN Creatinine GFR Calculation Glucose Calculated Osmolal ity Calcium Total Bilirubin AST ALT Alkaline Phosphata se Troponin T Baselin e Troponin T 120 Min [place] Cancelled Delta Troponin T Cancelled NT-Pro-B Natriuret Pep (0-125) pg/mL Total Protein Albumin Globulin Imaging Data^: CXR: Attestation: I personally reviewed and interpreted this imaging study as follows: Radiologist's impression: [address] [address] XRay Report Signed Patient: Sukumar Bangura #: [id number] : 6Acct#:[id number] Age/Sex: 65 / MADM Date: 03/09/21 Loc: ERRoom/Bed: Attending Dr: Ordering Provider/Ordering MD: Michelle Simon Date of Service: 03/09/21 Procedure(s): XR chest 1V portable [id number] Accession Number(s): [id number] Report Number: [id number] WS: [id number] Portable AP upright chest, 03/09/2021 Clinical Data: SOB Comparison: Portable chest, 01/19/2021. Findings: The chest deformity with a dextroscoliosis of thoracic spine is noted. There is a hetal extending from the upper thoracic into the lumbar spine to correct the scoliosis. The heart is slightly enlarged. No nodules, masses or effusions are seen. The pulmonary vascularity is not increased. No pneumonia or pneumothorax is seen. There are upper abdominal clips from surgery. XR/XR chest 1V portable [id number] Impression: 1. Cardiomegaly. 2. Severe dextroscoliosis of the thoracic spine. Dictated By:Kayla Borrego MD Signed By:Kayla Borrego MDSigned Date/Time:03/09/21 1205 DD/ 1202 EKG Data^: EKG 1: Attestation: I personally reviewed and interpreted this EKG as follows: EKG Interpretation Date: 03/09/21 EKG interpretation time: 15:53 Prior EKG tracings: not available for review Interpretation: Sinus rhythm with occasional supraventricular premature complexes. Heart rate [address] changes. Discharge Plan Discharge Patient Disposition: Home Clinical Impression: Acute exacerbation of chronic obstructive airways disease, Chronic hypercapnic respiratory failure Condition: Stable Prescriptions: New prednisone 20 mg tablet 60 mg PO DAILY Qty: 15 RF: 0 albuterol sulfate 2.5 mg /3 mL (0.083 %) solution for nebulization 2.5 mg inhalation Q4H PRN (Reason: shortness of breath or wheezing) Qty: 90 RF: 0 Continued fluticasone propion-salmeterol [Advair Diskus] 250-50 mcg/dose blister with device 1 inh inhalation Q12H Qty: 60 RF: 3 albuterol sulfate [Ventolin HFA] 90 mcg/actuation HFA aerosol inhaler 1 inh inhalation QID PRN (Reason: shortness of breath or wheezing) Qty: 8.5 RF: 3 furosemide 20 mg tablet 60 mg PO BID Qty: 180 RF: 1 potassium chloride 10 mEq capsule, extended release 20 meq PO DAILY Qty: 60 RF: 2 Discharge Orders: Discharge ED (Routine); Ordered 03/09/21 Ordered By: Kristen Crane Referrals: Alexandru Man FNP [Primary Care Provider] - 1-3 days Discharge Diet: Usual diet Discharge Activity: Increase activity as tolerated Patient Instructions: Chronic Obstructive Pulmonary Disease (ED) Activity Restrictions/Additional Instructions: Return for any new or worsening symptoms. Use your breathing treatments every 4 hours for the next 2 days while awake and then use it every 4 hours as needed thereafter. Take the steroids as prescribed, start taking the steroids tomorrow. Follow-up with your primary care provider within 3 days. Coding Level of Care Code ED Income Tax Expert for Edwin Fwd Exam Detailed
[2021-03-09] MEDS: ipratropium-albuterol 3 mL Neb INHALATION (16:30)
== END 2021-03-09 16:39 | disposition home or self-care (01) ==
PROVIDERS: Nurse Practitioner Family; Emergency Provider Family Medicine; PCP Registered Nurse
DX: J44.1 Chronic obstructive pulmonary disease with (acute) exacerbation (principal); J96.12 Chronic respiratory failure with hypercapnia; F17.220 Nicotine dependence, chewing tobacco, uncomplicated
CPT/HCPCS: 36600; 71045; 80053; 82803; 83880; 84484; 85025; 93005; 94640; 96374; 99284; J2930

== ENCOUNTER → 2021-03-22 09:41 | Outpatient (BNVA) | payer OTHER, SELFPAY | PROVIDERS: PCP Registered Nurse; Visit Provider Orthopaedic Surgery | DX: J98.4 Other disorders of lung (principal); M41.85 Other forms of scoliosis, thoracolumbar region | CPT/HCPCS: 72072 ==

== ENCOUNTER 2021-03-26 20:00 | Outpatient (CLI) | payer OTHER, SELFPAY | END 2021-03-26 20:01 | disposition home or self-care (01) | LOC: SLEEP 03-27 08:38 | PROVIDERS: PCP Registered Nurse; Visit Provider Internal Medicine Pulmonary Disease | DX: G47.33 Obstructive sleep apnea (adult) (pediatric) (principal) | CPT/HCPCS: 95811 ==

== ENCOUNTER → 2021-04-03 13:08 | Outpatient (BNVA) | payer OTHER, SELFPAY | PROVIDERS: PCP Family Medicine Adult Medicine; Visit Provider Internal Medicine | DX: I50.32 Chronic diastolic (congestive) heart failure (principal); R06.02 Shortness of breath | CPT/HCPCS: 80048; 83880 ==

== ENCOUNTER 2021-04-24 11:19 | Emergency (ER) | payer MEDICARE, OTHER, SELFPAY ==
[2021-04-24 11:40] VITALS: BP 111/72; PULSE 62; RESP 20; TEMP 36.4; O2SAT 97; BMI 42.5
--- NOTE | 2021-04-24 11:50 | XRR_ITS ---
PROCEDURE INFORMATION: Exam: XR Chest Exam date and time: 04/24/2021 11:58 AM Age: 66 years old Clinical indication: Pain and condition or disease; Lung condition and disease; Copd; Complications not specified; Chest pressure; Prior surgery; Surgery type: Scoliosis surgery on hetal removed due to being broken; Additional info: Chest pain/chf, copd TECHNIQUE: Imaging protocol: XR of the chest. Views: 1 view. COMPARISON: CR XR chest 1V portable [id number] 03/09/2021 11:50 AM FINDINGS: Lungs: Low lung volumes are seen. No consolidation. Pleural spaces: Unremarkable. No pleural effusion. No pneumothorax. Heart/Mediastinum: Unremarkable. No cardiomegaly. Bones/joints: Dorsal spine shows severe osteoarthritis and dextroscoliosis status post placement of metallic [place] hetal extending from the cervical spine to the lumbar spine. The metallic hetal is intact without evidence of deformity displacement or fracture. Comparison to prior examination similar findings are seen. XR/XR chest 1V portable [id number] IMPRESSION: 1. Low lung volumes seen the lungs are otherwise clear. 2. Severe osteoarthritis and dextroscoliosis of the dorsal spine 3. Stable intact metallic [place] hetal in place.
--- NOTE | 2021-04-24 11:51 | ECG_ITS ---
Test Date: 2021-04-24 Pat Name: Sukumar Bangura Department: Room: Gender: Male Churn Operator: : [id number] Requested By: Mak Cueva Order Number: [id number] Garcia MD: Darryl Guerra M.D. Measurements Intervals [place] Rate: 63 P: 64 GA: 157 QRS: -1 QRSD: 118 T: 39 QT: 423 QTc: 434 Interpretive Statements SINUS RHYTHM LOW QRS VOLTAGE IN PRECORDIAL LEADS [QRS DEFLECTION < 1.0 mV IN CHEST LEADS] INCOMPLETE RIGHT BUNDLE BRANCH BLOCK [90+ ms QRS DURATION, TERMINAL R IN V1/V2, 40+ ms S IN I/aVL/V4/V5/V6] NONSPECIFIC T-WAVE ABNORMALITY Compared to ECG 03/09/2021 15:53:40 No significant changes Electronically Signed On 04-24-2021 17:06:34 CDT by Darryl Guerra M.D. [id number]
--- NOTE | 2021-04-24 11:53 | W.ED.CHESTPA ---
HPI - Chest Pain General: Chief Complaint: Chest Pain Stated Complaint: CP Time Seen by Provider: 04/24/21 11:48 History of Present Illness: HPI narrative: This patient presents to the emergency department is a 66-year-old male with a complaint of nonspecific chest pain this morning when letting the dog back in the house. Patient does have a long history of cardiac disease and congestive heart failure does take Lasix multiple times during the day. Patient states he takes Lasix but he does not urinate much patient does wear oxygen 24 hours a day due to long history of COPD and CHF. Cannot really say whether he has had any weight gain or not. Patient states he does not have any chest pain at this time. We will do medical evaluation treat as needed MD complaint: chest pain Timing of current episode: episodic Prior episodes: Yes Onset: during exertion Pain location: left chest Pain radiation: none Severity: mild Quality: tightness and aching Relieving factors: rest Exacerbating factors: nothing and exertion Associated symptoms: Deny abdominal pain, dyspnea, fever(s), nausea, palpitations or vomiting Review of Systems General: Reports: 10 or more systems reviewed and unremarkable except in HPI and below Const: Denies: fever(s), chills, body aches or fatigue Eyes: Denies: change in vision or blurry vision ENMT: Denies: throat pain, hoarseness or mouth pain Card: Reports: chest pain; Denies: palpitations, irregular heart rhythm, edema, swelling of feet/ankles or lightheadedness Resp: Denies: dyspnea, productive cough, non-productive cough, wheezing or pain on inspiration GI: Denies: abdominal pain, nausea or vomiting : Denies: flank pain, dysuria, urinary frequency, urinary urgency or urinary hesitancy Musc: Denies: neck pain, back pain, extremity pain, extremity swelling, joint pain, joint swelling, joint redness, joint warmth or limited range of motion Skin/Breast: Denies: rash, pruritus, erythema or skin tenderness Neuro: Denies: headache(s), numbness in extremities or weakness in extremities Psych: Denies: anxiety or depression PFSH ED PFSH: Medical History Acquired arm deformity COPD (chronic obstructive pulmonary disease) Fixation hardware in spine GERD (gastroesophageal reflux disease) Hyperglycemia Kyphoscoliosis Obesity Scoliosis Tobacco chew use Surgical History H/O arthroscopy of shoulder History of appendectomy History of [place] fundoplication Hx of cholecystectomy Family History Father Cancer Social History Smoking and tobacco status: current every day smoker smokeless tobacco Smokeless tobacco user: chewing tobacco Smokeless tobacco details: 1 can daily Quit status (tobacco): has quit using tobacco Year quit tobacco: Nov 2020 Second hand smoke exposure: No Smoking risk assessment/counseling performed?: Yes Alcohol intake: never Lives independently: Yes Household members: spouse Housing: House Marital status: service: No Current occupational status: employed 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 Pets and animals: Yes History of recent travel: No Current gender identity: Male Physical Exam Const: COMMON NORMALS: no acute distress, average body habitus, patient oriented x3, no limitations, healthy appearing, alert and well nourished HENMT: COMMON NORMALS: normocephalic, atraumatic, hearing grossly normal bilaterally, external ears normal, EAC's normal, TM's normal bilaterally, Normal external nose present, Normal nasal mucous membranes and turbinates present, moist oral mucous membranes, oropharynx normal, dentition normal and gingiva normal HEAD & SCALP: normocephalic and atraumatic NOSE: Normal external nose present and Normal nasal mucous membranes and turbinates present EXTERNAL EAR: Yes external ears normal EXTERNAL AUDITORY CANAL: EAC's normal TYMPANIC MEMBRANE: TM's normal bilaterally Neck/C-Spine: COMMON NORMALS: full ROM, no lymphadenopathy, supple, no meningeal signs, no JVD, Thyroid normal and No carotid bruits THYROID: Thyroid normal Chest: COMMONS NORMALS: normal inspection of the chest, normal palpation of entire chest wall, normal inspection of the breasts and normal palpation of the breasts Breast/axilla inspection: Yes normal inspection of the breasts BREAST/AXILLA PALPATION: Yes normal palpation of the breasts Resp: COMMON NORMALS: normal respiratory effort, No retractions, No use of accessory muscles, clear to auscultation bilaterally and percussion normal AUSCULTATION: clear to auscultation bilaterally PERCUSSION: percussion normal Cardio: COMMON NORMALS: no JVD, regular rate, regular rhythm, S1 normal heart sound present, S2 normal heart sound present, No gallops present (Cardio), No clicks present (Cardio), No murmurs present (Cardio), No rub (Cardio) and Peripheral pulses 2+ throughout RATE: regular rate RHYTHM: regular rhythm HEART SOUNDS: S1 normal heart sound present and S2 normal heart sound present PERIPHERAL PULSES: Peripheral pulses 2+ throughout GI: COMMON NORMALS: Normal to inspection, nondistended, normoactive bowel sounds present, Soft to palpation, non-tender, No hepatosplenomegaly present, no masses and no bruits PALPATION: Yes Soft to palpation and Yes No hepatosplenomegaly present : COMMON NORMALS: Yes no CVA tenderness BLADDER/KIDNEY EXAM: Yes no CVA tenderness Back/Pelvis: COMMON NORMALS: no CVA tenderness, thoracic and lumbar spine normal to inspection, no thoracic nor lumbar tenderness, thoraco-lumbar ROM normal and straight leg raise negative bilaterally Extremity: COMMON NORMALS: normal to inspection, full ROM, capillary refill normal, no joint enlargement, no clubbing, cyanosis or edema, no calf tenderness and no pedal edema Neuro: COMMON NORMALS: patient oriented x3 SENSORIUM/ORIENTATION: Yes alert MENINGEAL SIGNS: Yes no meningeal signs Course Reevaluation(s): Reevaluation #1: This patient presents to the emergency department is a 66-year-old male with a complaint of nonspecific chest pain this morning when letting the dog back in the house. Patient does have a long history of cardiac disease and congestive heart failure does take Lasix multiple times during the day. Patient states he takes Lasix but he does not urinate much patient does wear oxygen 24 hours a day due to long history of COPD and CHF. Cannot really say whether he has had any weight gain or not. Patient states he does not have any chest pain at this time. Negative evaluation for any acute findings. Patient has no chest pain on arrival. Chronic conditions appear to be stable. Patient will be discharged home. Continue all home medications. Follow-up with your primary care physician in 2 to 3 days as needed. Return to the emergency department symptoms fail to improve or worsen. Time: 13:16 Vital Signs: Vital signs: Vital Signs Temperature 97.6 F 04/24/21 11:40 Pulse Rate 66 04/24/21 13:09 Respiratory Rate 20 H 04/24/21 13:09 Blood Pressure 105/65 04/24/21 13:09 Pulse Oximetry 100 04/24/21 13:09 MDM - Chest Pain MDM Narrative: Medical decision making narrative: Negative evaluation for any acute findings. Patient has no chest pain on arrival. Chronic conditions appear to be stable. Patient will be discharged home. Continue all home medications. Follow-up with your primary care physician in 2 to 3 days as needed. Return to the emergency department symptoms fail to improve or worsen. Lab Data: Labs: Lab Results 04/24/21 04/24/21 04/24/21 Range/Units 12:15 12:15 12:15 WBC 7.1 (4.0-10.0) 10^3/ uL RBC 4.37 (4.1-5.3) 10^6/u L Hgb 14.2 (11.7-16.6) g/dL Hct 44.6 (42.0-52.0) % MCV 102.1 H (80-94) fL MCH 32.5 (28.0-34.0) pg MCHC 31.8 (30.0-36.0) g/dL RDW 12.5 (12.1-15.1) % Plt Count 153 (130-400) 10^3/c mm MPV 9.7 (7.4-10.4) fL Neut % (Auto) 60.6 % Lymph % (Auto) 22.9 % [place] % (Auto) 12.1 % Eos % (Auto) 3.5 % Baso % (Auto) 0.6 % Neut # (Auto) 4.29 (1.8-7.7) 10^3/u L Lymph # (Auto) 1.6 (0.8-4.8) 10^3/u L [place] # (Auto) 0.9 (0.2-0.9) 10^3/u L Eos # (Auto) 0.3 (0.0-0.8) 10^3/u L Baso # (Auto) 0.0 (0.0-0.1) 10^3/u L Nucleated RBC % (a uto) 0 % Nucleated RBCs # 0.0 /100WBC PT 12.10 (12.1-14.9) SECO NDS INR 0.87 (0.8-1.2) APTT 25.6 (23.9-36.7) SECO NDS Sodium 140 (136-145) mmol/L Potassium 3.9 (3.5-5.1) mmol/L Chloride 91 L (98-107) mmol/L Carbon Dioxide 43 H* (22-29) mmol/L Anion Gap 9.9 (5-19) BUN 12 (8-23) mg/dL Creatinine 0.6 L (0.7-1.2) mg/dL GFR Calculation 135.2 H (90-130) mL/min Glucose 100 (65-115) mg/dL Calculated Osmolal ity 290 (285-295) mOsm/k g Calcium 8.7 (8.5-10.5) mg/dL Total Bilirubin 0.4 (0.15-1.2) mg/dL AST 28 (0-40) U/L ALT 29 (0-41) U/L Alkaline Phosphata se 91 (40-130) IU/L Troponin T Baselin e (0-15) ng/L NT-Pro-B Natriuret Pep 75 (0-125) pg/mL Total Protein 7.0 (6.6-8.7) g/dL Albumin 3.8 (3.5-5.2) g/dL Globulin 3.2 (1.3-4.6) g/dL Urine Color (Yellow) Urine Appearance (CLEAR) Urine pH (5-7) Ur Specific Gravit y (1.005-1.030) Urine Protein (Negative) Urine Glucose (UA) (Normal) Urine Ketones (Negative) Urine Blood (Negative) Urine Nitrate (Negative) Urine Bilirubin (Negative) Prot Sulfosalicyli c Acd (Negative) Urine Urobilinogen (Negative) mg/dL Ur Leukocyte Raysa ase (Negative) 04/24/21 04/24/21 Range/Units 12:15 12:45 WBC (4.0-10.0) 10^3/ uL RBC (4.1-5.3) 10^6/u L Hgb (11.7-16.6) g/dL Hct (42.0-52.0) % MCV (80-94) fL MCH (28.0-34.0) pg MCHC (30.0-36.0) g/dL RDW (12.1-15.1) % Plt Count (130-400) 10^3/c mm MPV (7.4-10.4) fL Neut % (Auto) % Lymph % (Auto) % [place] % (Auto) % Eos % (Auto) % Baso % (Auto) % Neut # (Auto) (1.8-7.7) 10^3/u L Lymph # (Auto) (0.8-4.8) 10^3/u L [place] # (Auto) (0.2-0.9) 10^3/u L Eos # (Auto) (0.0-0.8) 10^3/u L Baso # (Auto) (0.0-0.1) 10^3/u L Nucleated RBC % (a uto) % Nucleated RBCs # /100WBC PT (12.1-14.9) SECO NDS INR (0.8-1.2) APTT (23.9-36.7) SECO NDS Sodium (136-145) mmol/L Potassium (3.5-5.1) mmol/L Chloride (98-107) mmol/L Carbon Dioxide (22-29) mmol/L Anion Gap (5-19) BUN (8-23) mg/dL Creatinine (0.7-1.2) mg/dL GFR Calculation (90-130) mL/min Glucose (65-115) mg/dL Calculated Osmolal ity (285-295) mOsm/k g Calcium (8.5-10.5) mg/dL Total Bilirubin (0.15-1.2) mg/dL AST (0-40) U/L ALT (0-41) U/L Alkaline Phosphata se (40-130) IU/L Troponin T Baselin e 12 (0-15) ng/L NT-Pro-B Natriuret Pep (0-125) pg/mL Total Protein (6.6-8.7) g/dL Albumin (3.5-5.2) g/dL Globulin (1.3-4.6) g/dL Urine Color Yellow (Yellow) Urine Appearance Clear (CLEAR) Urine pH 9 H (5-7) Ur Specific Gravit y 1.015 (1.005-1.030) Urine Protein Neg (Negative) Urine Glucose (UA) Norm (Normal) Urine Ketones Negative (Negative) Urine Blood Neg (Negative) Urine Nitrate Negative (Negative) Urine Bilirubin Neg (Negative) Prot Sulfosalicyli c Acd Negative (Negative) Urine Urobilinogen Norm (Negative) mg/dL Ur Leukocyte Raysa ase Negative (Negative) EKG Data^: EKG 1: Attestation: I personally reviewed and interpreted this EKG as follows: EKG interpretation date: 04/24/21 EKG interpretation time: 12:07 Prior EKG tracings: available for review Ischemic changes: non-specific ST-T wave changes Interpretation: Sinus rhythm heart rate 63 incomplete right bundle branch block nonspecific ST changes. Discharge Plan Discharge Patient Disposition: Home Clinical Impression: Atypical chest pain, COPD (chronic obstructive pulmonary disease), Ex-smoker, Restrictive lung disease due to kyphoscoliosis Condition: Stable Prescriptions: No Action fluticasone propionate 50 mcg/actuation spray,suspension See Rx Instructions .ROUTE .COMPLEX RF: 0 calcium 1 tab PO DAILY@0800 RF: 0 potassium chloride 10 mEq capsule, extended release 20 meq PO DAILY@0800 RF: 0 furosemide 20 mg tablet 60 mg PO BID@0800,1999 RF: 0 albuterol sulfate 2.5 mg /3 mL (0.083 %) solution for nebulization 2.5 mg inhalation Q4H PRN (Reason: shortness of breath or wheezing) Qty: 90 RF: 0 Discharge Orders: Discharge ED (Routine); Ordered 04/24/21 Ordered By: Mak Cueva Referrals: Saji York [Primary Care Provider] - Discharge Diet: Advance as tolerated Discharge Activity: Resume usual activity Patient Instructions: Opioid Safety Activity Restrictions/Additional Instructions: Continue all home medications. Follow-up with your primary care physician in 3 to 5 days. Return to the emergency department symptoms fail to improve or worsen Coding Level of Care Code ED Manager People for Chg Fwd Exam Comprehensive
[2021-04-24 11:58] VITALS: BP 110/52; PULSE 63; RESP 18; O2SAT 100
[2021-04-24 12:20] VITALS: PULSE 67; RESP 18; O2SAT 100
[2021-04-24 12:29] LABS: Basophils % 0.6 %; Eosinophils # 0.3 10^3/uL (0.0-0.8); Eosinophils % 3.5 %; Hematocrit 44.6 % (42.0-52.0); Hemoglobin 14.2 g/dL (11.7-16.6); Lymphocytes # 1.6 10^3/uL (0.8-4.8); Lymphocytes % 22.9 %; Mean Corpuscular HGB Conc 31.8 g/dL (30.0-36.0); Mean Corpuscular Hemoglobin 32.5 pg (28.0-34.0); Mean Corpuscular Volume 102.1 fL (80-94); Mean Platelet Volume 9.7 fL (7.4-10.4); Monocytes # 0.9 10^3/uL (0.2-0.9); Monocytes % 12.1 %; Neutrophils # 4.29 10^3/uL (1.8-7.7); Neutrophils % 60.6 %; Nucleated Red Blood Cells % 0 %; Platelet Count 153 10^3/cmm (130-400); Red Blood Count 4.37 10^6/uL (4.1-5.3); Red Cell Distribution Width 12.5 % (12.1-15.1); White Blood Count 7.1 10^3/uL (4.0-10.0)
[2021-04-24 12:43] LABS: INR 0.87 (0.8-1.2)
[2021-04-24 12:44] LABS: Partial Thromboplastin Time 25.6 SECONDS (23.9-36.7)
[2021-04-24 12:46] VITALS: BP 105/64; PULSE 71; RESP 20; O2SAT 100
[2021-04-24 12:53] LABS: Troponin(5th) Baseline 12 ng/L (0-15)
[2021-04-24 12:56] LABS: Add Urine Microscopic? NO; Charge for UA Resulting for Rev
[2021-04-24 13:01] LABS: Alanine Aminotransferase 29 U/L (0-41); Albumin Level 3.8 g/dL (3.5-5.2); Alkaline Phosphatase 91 IU/L (40-130); Blood Urea Nitrogen 12 mg/dL (8-23); Calcium 8.7 mg/dL (8.5-10.5); Chloride 91 mmol/L (98-107); Globulin 3.2 g/dL (1.3-4.6); Glomerular Filtration Rate 135.2 mL/min (90-130); Glucose 100 mg/dL (65-115); NT Pro B Type Natriuretic Pept 75 pg/mL (0-125); Osmolality Calculated 290 mOsm/kg (285-295); Sodium 140 mmol/L (136-145); Total Bilirubin 0.4 mg/dL (0.15-1.2)
[2021-04-24 13:03] LABS: Bilirubin Urine Neg (Negative); Blood Urine Neg (Negative); Glucose Urine UA Norm (Normal); Ketones Urine Negative (Negative); Leukocyte Esterase Urine Negative (Negative); Nitrate Urine Negative (Negative); Protein Urine Neg (Negative); Specific Gravity, Urine 1.015 (1.005-1.030); Sulfosalicylic Acid Urine Negative (Negative); Urine Appearance Clear (CLEAR); Urine Color Yellow (Yellow); Urobilinogen Urine Norm (Negative); pH Urine 9 (5-7)
[2021-04-24 13:09] VITALS: BP 105/65; PULSE 66; RESP 20; O2SAT 100
[2021-04-24 13:13] LABS: Anion Gap 9.9 (5-19); Aspartate Amino Transferase 28 U/L (0-40); Carbon Dioxide 43 mmol/L (22-29); Potassium 3.9 mmol/L (3.5-5.1)
[2021-04-24 13:23] VITALS: BP 105/65; PULSE 76; RESP 20; O2SAT 100
== END 2021-04-24 13:24 | disposition home or self-care (01) ==
PROVIDERS: Emergency Provider Emergency Medicine; PCP Family Medicine
DX: R07.89 Other chest pain (principal); J44.9 Chronic obstructive pulmonary disease, unspecified; M40.209 Unspecified kyphosis, site unspecified; J99 Respiratory disorders in diseases classified elsewhere; F17.220 Nicotine dependence, chewing tobacco, uncomplicated
CPT/HCPCS: 71045; 80053; 81003; 83880; 84484; 85025; 85610; 85730; 93005; 99284

== ENCOUNTER 2021-06-02 07:34 | Emergency (ER) | payer MEDICARE, OTHER, SELFPAY ==
[2021-06-02 07:40] VITALS: BP 111/71; PULSE 84; RESP 20; TEMP 36.8; O2SAT 95; BMI 43.3
--- NOTE | 2021-06-02 08:00 | W.ED.SOB ---
HPI - SOB/Dyspnea General: Chief Complaint: Shortness of Breath/Dyspnea Stated Complaint: Pain in R chest to right ribs, SOB, Time Seen by Provider: 06/02/21 07:53 History of Present Illness: HPI Narrative: 66-year-old male complaining of right-sided chest pain that lasted about 2 to 3 minutes earlier this morning no radiation no nausea or vomiting was not particularly short of breath that resolved now and is pain-free. Has not had any fever sweats chills or productive cough. MD elicited complaint: chest pain Pertinent past history: COPD and congestive heart failure Onset (ago): hour(s) Timing: intermittent Severity: mild Exacerbating factors: nothing Relieving factors: nothing Known history of: congestive heart failure Associated symptoms: Reports chest pain; Deny abdominal pain, chest congestion, cough, diaphoresis, dizziness, extremity pain, fever(s), hemoptysis, lightheadedness, myalgias, nausea, orthopnea, palpitations, paresthesias, polydipsia, polyuria, rash, sense of impending doom, syncope or vomiting Treatment prior to arrival: none Review of Systems Const: Denies: fever(s) or diaphoresis ENMT: Denies: throat pain, ear or mastoid pain, nasal discharge or nasal congestion Card: Reports: chest pain; Denies: palpitations, lightheadedness, syncope or orthopnea Resp: Denies: hemoptysis or chest congestion GI: Denies: abdominal pain, nausea or vomiting : Denies: flank pain, dysuria, urinary frequency or urinary urgency Musc: Denies: extremity pain Skin/Breast: Denies: rash or pruritus Neuro: Denies: dizziness Endo: Denies: polyuria or polydipsia PFSH ED PFSH: Medical History Acquired arm deformity COPD (chronic obstructive pulmonary disease) Fixation hardware in spine GERD (gastroesophageal reflux disease) Hyperglycemia Kyphoscoliosis Obesity Scoliosis Tobacco chew use Surgical History H/O arthroscopy of shoulder History of appendectomy History of [place] fundoplication Hx of cholecystectomy Family History Father Cancer Social History Smoking and tobacco status: former smoker Quit status (tobacco): has quit using tobacco Year quit tobacco: Nov 2020 Second hand smoke exposure: No Smoking risk assessment/counseling performed?: Yes Alcohol intake: never Lives independently: Yes Household members: spouse Housing: House Marital status: service: No Current occupational status: employed 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 Pets and animals: Yes History of recent travel: No Current gender identity: Male Physical Exam Const: COMMON NORMALS: no acute distress GENERAL APPEARANCE: cooperative and comfortable ORIENTATION/CONSCIOUSNESS: Yes awake, Yes oriented to person, Yes oriented to place and Yes oriented to time Neck/C-Spine: COMMON NORMALS: no JVD Resp: COMMON NORMALS: normal respiratory effort, No retractions, No use of accessory muscles and clear to auscultation bilaterally AUSCULTATION: clear to auscultation bilaterally Cardio: COMMON NORMALS: no JVD, regular rate, regular rhythm and No murmurs present (Cardio) RATE: regular rate RHYTHM: regular rhythm GI: COMMON NORMALS: Soft to palpation and No hepatosplenomegaly present AUSCULTATION: Yes normoactive bowel sounds PALPATION: Yes Soft to palpation, No Tenderness to palpation present (GI), No Guarding due to palpation present (GI) and Yes No hepatosplenomegaly present Neuro: SENSORIUM/ORIENTATION: Yes oriented to person, Yes oriented to place and Yes oriented to time Skin: COMMON NORMALS: no rashes or lesions noted GENERAL SKIN EXAM: no rashes or lesions noted Course Vital Signs: Vital signs: Vital Signs Temperature 98.2 F 06/02/21 07:40 Pulse Rate 67 06/02/21 11:00 Respiratory Rate 16 06/02/21 11:00 Blood Pressure 100/53 06/02/21 11:00 Pulse Oximetry 98 06/02/21 11:00 MDM - SOB/Dyspnea MDM Narrative: Medical decision making narrative: Reviewed findings with the patient he is feeling much better he is not having any further shortness of breath or chest discomfort other than the brief episode he had before he came cardiac enzymes negative we will discharge patient home return if has any problems start taking aspirin daily and we will set him up for a Lexiscan sestamibi stress test as an outpatient. Lab Data: Labs: Lab Results 06/02/21 06/02/21 06/02/21 Range/Units 09:16 09:16 09:16 WBC 6.1 (4.0-10.0) 10^3/ uL RBC 4.44 (4.1-5.3) 10^6/u L Hgb 14.5 (11.7-16.6) g/dL Hct 45.6 (42.0-52.0) % MCV 102.7 H (80-94) fL MCH 32.7 (28.0-34.0) pg MCHC 31.8 (30.0-36.0) g/dL RDW 12.5 (12.1-15.1) % Plt Count 174 (130-400) 10^3/c mm MPV 9.8 (7.4-10.4) fL Neut % (Auto) 56.3 % Lymph % (Auto) 27.6 % [place] % (Auto) 12.7 % Eos % (Auto) 2.6 % Baso % (Auto) 0.5 % Neut # (Auto) 3.45 (1.8-7.7) 10^3/u L Lymph # (Auto) 1.7 (0.8-4.8) 10^3/u L [place] # (Auto) 0.8 (0.2-0.9) 10^3/u L Eos # (Auto) 0.2 (0.0-0.8) 10^3/u L Baso # (Auto) 0.0 (0.0-0.1) 10^3/u L Nucleated RBC % (a uto) 0 % Nucleated RBCs # 0.0 /100WBC Sodium Cancelled Potassium Cancelled Chloride Cancelled Carbon Dioxide Cancelled Anion Gap Cancelled BUN Cancelled Creatinine Cancelled GFR Calculation Cancelled Glucose Cancelled Calculated Osmolal ity Cancelled Calcium Cancelled Total Bilirubin Cancelled AST Cancelled ALT Cancelled Alkaline Phosphata se Cancelled Troponin T Baselin e Cancelled Troponin T 120 Min myriam (0-15) ng/L Delta Troponin T (0-10) ABS# Total Protein Cancelled Albumin Cancelled Globulin Cancelled 06/02/21 06/02/21 06/02/21 Range/Units 09:53 09:53 11:23 WBC (4.0-10.0) 10^3/ uL RBC (4.1-5.3) 10^6/u L Hgb (11.7-16.6) g/dL Hct (42.0-52.0) % MCV (80-94) fL MCH (28.0-34.0) pg MCHC (30.0-36.0) g/dL RDW (12.1-15.1) % Plt Count (130-400) 10^3/c mm MPV (7.4-10.4) fL Neut % (Auto) % Lymph % (Auto) % [place] % (Auto) % Eos % (Auto) % Baso % (Auto) % Neut # (Auto) (1.8-7.7) 10^3/u L Lymph # (Auto) (0.8-4.8) 10^3/u L [place] # (Auto) (0.2-0.9) 10^3/u L Eos # (Auto) (0.0-0.8) 10^3/u L Baso # (Auto) (0.0-0.1) 10^3/u L Nucleated RBC % (a uto) % Nucleated RBCs # /100WBC Sodium 137 Potassium 4.5 Chloride 91 L Carbon Dioxide 43 H* Anion Gap 7.5 BUN 12 Creatinine 0.6 L GFR Calculation 135.2 H Glucose 98 Calculated Osmolal ity 284 L Calcium 8.4 L Total Bilirubin 0.4 AST 27 ALT 32 Alkaline Phosphata se 102 Troponin T Baselin e 10 Troponin T 120 Min myriam 8.64 (0-15) ng/L Delta Troponin T -1.36 L (0-10) ABS# Total Protein 6.3 L Albumin 3.9 Globulin 2.4 Discharge Plan Discharge Patient Disposition: Home Clinical Impression: Atypical chest pain, COPD (chronic obstructive pulmonary disease) Condition: Stable Prescriptions: New aspirin 81 mg tablet,delayed release (DR/EC) 81 mg PO DAILY Qty: 30 RF: 0 No Action potassium chloride 10 mEq capsule, extended release 20 meq PO DAILY@0800 Qty: 60 RF: 3 fluticasone propionate 50 mcg/actuation spray,suspension See Rx Instructions .ROUTE .COMPLEX RF: 0 calcium 1 tab PO DAILY@0800 RF: 0 furosemide 20 mg tablet 60 mg PO BID@0800,2000 RF: 0 albuterol sulfate 2.5 mg /3 mL (0.083 %) solution for nebulization 2.5 mg inhalation Q4H PRN (Reason: shortness of breath or wheezing) Qty: 90 RF: 0 Discharge Orders: Discharge ED (Routine); Ordered 06/02/21 Ordered By: Venkatesh Burger Referrals: Saji York [Primary Care Provider] - Discharge Diet: Usual diet Discharge Activity: Limit activity as instructed Patient Instructions: Opioid Safety Activity Restrictions/Additional Instructions: Start baby aspirin daily. Case management will call to set you up for a Lexiscan sestamibi stress test. Coding Level of Care Code ED Junior Systems Administrator for Chg Fwd Exam Detailed
[2021-06-02 08:16] VITALS: BP 121/85; PULSE 74; RESP 16; O2SAT 100
--- NOTE | 2021-06-02 08:51 | XRR_ITS ---
PROCEDURE INFORMATION: Exam: XR Chest Exam date and time: 06/02/2021 8:51 AM Age: 66 years old Clinical indication: Cough; Additional info: Dyspnea/cough TECHNIQUE: Imaging protocol: XR of the chest. Views: 1 view. COMPARISON: CR XR chest 1V portable [id number] 04/24/2021 11:53 AM FINDINGS: Lungs: Unremarkable. No consolidation. Pleural spaces: Unremarkable. No pleural effusion. No pneumothorax. Heart/Mediastinum: Unremarkable. No cardiomegaly. Bones/joints: There is a thoracolumbar scoliosis with the presence of a [place] hetal. XR/XR chest 1V portable [id number] IMPRESSION: 1. No acute cardiopulmonary abnormality. 2. Prominent scoliosis.
--- NOTE | 2021-06-02 08:51 | ECG_ITS ---
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 Measurements Intervals [place] Rate: 69 P: 51 [place]: 155 QRS: 22 QRSD: 103 T: 35 QT: 431 QTc: 462 Interpretive Statements SINUS RHYTHM INCOMPLETE RIGHT BUNDLE BRANCH BLOCK [90+ ms QRS DURATION, TERMINAL R IN V1/V2, 40+ ms S IN I/aVL/V4/V5/V6] Compared to ECG 04/24/2021 12:07:26 T-wave abnormality no longer present Electronically Signed On 06-02-2021 19:30:30 CDT by Chanda Anders M.D. [id number]
[2021-06-02 09:00] VITALS: BP 113/71; PULSE 72; RESP 15; O2SAT 99
[2021-06-02 09:27] LABS: Basophils % 0.5 %; Eosinophils # 0.2 10^3/uL (0.0-0.8); Eosinophils % 2.6 %; Hematocrit 45.6 % (42.0-52.0); Hemoglobin 14.5 g/dL (11.7-16.6); Lymphocytes # 1.7 10^3/uL (0.8-4.8); Lymphocytes % 27.6 %; Mean Corpuscular HGB Conc 31.8 g/dL (30.0-36.0); Mean Corpuscular Hemoglobin 32.7 pg (28.0-34.0); Mean Corpuscular Volume 102.7 fL (80-94); Mean Platelet Volume 9.8 fL (7.4-10.4); Monocytes # 0.8 10^3/uL (0.2-0.9); Monocytes % 12.7 %; Neutrophils # 3.45 10^3/uL (1.8-7.7); Neutrophils % 56.3 %; Nucleated Red Blood Cells % 0 %; Platelet Count 174 10^3/cmm (130-400); Red Blood Count 4.44 10^6/uL (4.1-5.3); Red Cell Distribution Width 12.5 % (12.1-15.1); White Blood Count 6.1 10^3/uL (4.0-10.0)
[2021-06-02 10:20] LABS: Troponin(5th) Baseline 10 ng/L (0-15)
[2021-06-02 10:22] LABS: Alanine Aminotransferase 32 U/L (0-41); Albumin Level 3.9 g/dL (3.5-5.2); Alkaline Phosphatase 102 IU/L (40-130); Aspartate Amino Transferase 27 U/L (0-40); Blood Urea Nitrogen 12 mg/dL (8-23); Calcium 8.4 mg/dL (8.5-10.5); Chloride 91 mmol/L (98-107); Globulin 2.4 g/dL (1.3-4.6); Glomerular Filtration Rate 135.2 mL/min (90-130); Glucose 98 mg/dL (65-115); Osmolality Calculated 284 mOsm/kg (285-295); Sodium 137 mmol/L (136-145); Total Bilirubin 0.4 mg/dL (0.15-1.2); Total Protein 6.3 g/dL (6.6-8.7)
[2021-06-02 10:44] LABS: Anion Gap 7.5 (5-19); Potassium 4.5 mmol/L (3.5-5.1)
[2021-06-02 10:45] LABS: Carbon Dioxide 43 mmol/L (22-29)
--- NOTE | 2021-06-02 10:51 | ECG_ITS ---
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 Measurements Intervals [place] Rate: 60 P: 65 [place]: 158 QRS: 64 QRSD: 108 T: 59 QT: 450 QTc: 450 Interpretive Statements SINUS RHYTHM WITH MARKED SINUS ARRHYTHMIA INCOMPLETE RIGHT BUNDLE BRANCH BLOCK [90+ ms QRS DURATION, TERMINAL R IN V1/V2, 40+ ms S IN I/aVL/V4/V5/V6] Compared to ECG 06/02/2021 09:23:21 No significant changes Electronically Signed On 06-02-2021 19:33:59 CDT by Chanda Anders M.D. [id number]
[2021-06-02 11:00] VITALS: BP 100/53; PULSE 67; RESP 16; O2SAT 98
[2021-06-02 11:58] LABS: Troponin 5 2HR 8.64 ng/L (0-15)
[2021-06-02 12:04] LABS: Troponin 5 2HR Delta -1.36 ABS# (0-10)
--- NOTE | 2021-06-07 12:26 | DCPLANNER ---
workforce manager had message to schedule an out patient stress test for patient. workforce manager faxed order for stress test to centralized scheduling. workforce manager will call for appointment information.
--- NOTE | 2021-06-12 08:06 | DCPLANNER ---
Patient has an outpatient stress test scheduled for Friday, June 18, 2021 at 11:30. Centralized scheduling will call patent with appointment information.
--- NOTE | 2021-06-21 12:04 | DCPLANNER ---
Patient had a stress test scheduled for 06.18.21 - appointment was cancelled.
== END 2021-06-02 12:29 | disposition home or self-care (01) ==
PROVIDERS: Emergency Provider Family Medicine; PCP Family Medicine
DX: R07.89 Other chest pain (principal); J44.9 Chronic obstructive pulmonary disease, unspecified; Z87.891 Personal history of nicotine dependence
CPT/HCPCS: 71045; 80053; 84484; 85025; 93005; 99283

== ENCOUNTER → 2021-08-30 13:50 | Outpatient (BNVA) | payer MEDICARE, SELFPAY | PROVIDERS: PCP Family Medicine; Visit Provider Internal Medicine | DX: I50.32 Chronic diastolic (congestive) heart failure (principal); R06.02 Shortness of breath; R55 Syncope and collapse; R29.6 Repeated falls | CPT/HCPCS: 80048; 83880 ==

== ENCOUNTER 2021-09-26 15:52 | Outpatient (CLI) | payer MEDICARE, MEDICAID, SELFPAY ==
--- NOTE | 2021-09-26 15:45 | USCV_ITS ---
Sukumar Bangura Age: 66 Gender: M : 1955 Exam Date: 09/26/2021 16:03 Ordering Phys: Delta Petit MD Technologist: Luz Aggarwal Exam Location: [facility] [place] Indication: CCA STENOSIS Risk Factors: Unknown Previous Vascular Surgery: None Right Brachial BP: / Left Brachial BP: / Right Left Velocity (cm/s) Spectral Plaque Velocity (cm/s) Spectral Plaque Syst/Diast Broadening Syst/Diast Broadening 82.00/ 12.80 Prox CCA 86.20 / 21.80 69.20/ 20.50 Mid CCA 83.90 / 25.60 49.60/ 16.20 Distal CCA 81.60 / 26.40 51.30/ 17.10 Prox ICA 77.70 / 16.30 57.50/ 22.70 Mid ICA 35.00 / 10.80 61.80/ 22.00 Distal ICA 55.10 / 14.90 102.50 ECA 84.70 0.75 ICA/CCA 0.90 Antegrade Vertebral Antegrade 34.20/ 11.70 cm/s 28.70/ 11.70 cm/s Tri Subclavian Tri 68.40 167.0 0 FINDINGS Technically difficult study because of poor ultrasonic window Normal Doppler flow velocities. Intimal thickening was noted in the common carotid arteries. Antegrade flow in the vertebral arteries bilaterally Relatively high velocity in the left subclavian artery, possibly related to poor Doppler techniques CONCLUSIONS Intimal thickening in the common carotid arteries bilaterally Normal Doppler flow velocities Technically difficult study. Possibly no significant stenosis in the above-mentioned arteries, based on the current findings Dr Chanda Anders MD [facility] (Electronically Signed) Final Date: 27 September 2021 09:30 S
== END 2021-09-26 15:53 | disposition home or self-care (01) ==
LOC: RAD 15:53
PROVIDERS: PCP Family Medicine; Visit Provider Internal Medicine Pulmonary Disease
DX: R55 Syncope and collapse (principal); I65.23 Occlusion and stenosis of bilateral carotid arteries
CPT/HCPCS: 93880

== ENCOUNTER 2021-11-07 11:30 | Emergency (ER) | payer MEDICARE, MEDICAID, SELFPAY ==
[2021-11-07 11:38] VITALS: BP 110/67; PULSE 71; RESP 18; TEMP 37.1; O2SAT 98; BMI 44.3
--- NOTE | 2021-11-07 11:48 | XRR_ITS ---
PROCEDURE INFORMATION: Exam: XR Chest Exam date and time: 11/07/2021 11:48 AM Age: 66 years old Clinical indication: Cough and shortness of breath TECHNIQUE: Imaging protocol: XR of the chest. Views: 1 view. COMPARISON: CR XR chest 1V portable [id number] 06/02/2021 8:52 AM FINDINGS: Lungs: Hypoinflated lungs. No consolidation. Pleural spaces: No pleural effusion. No pneumothorax. Heart/Mediastinum: Stable cardiomegaly. Bones/joints: Visualized osseous structures are intact. Similar findings of scoliosis with Oconnor hetal placement. XR/XR chest 1V portable [id number] IMPRESSION: Stable exam, no acute findings.
[2021-11-07 12:37] LABS: Basophils % 0.4 %; Eosinophils # 0.2 10^3/uL (0.0-0.8); Eosinophils % 2.8 %; Hematocrit 40.1 % (42.0-52.0); Hemoglobin 12.6 g/dL (11.7-16.6); Lymphocytes # 1.9 10^3/uL (0.8-4.8); Lymphocytes % 24.9 %; Mean Corpuscular HGB Conc 31.4 g/dL (30.0-36.0); Mean Corpuscular Volume 98.5 fl (80-94); Mean Platelet Volume 9.3 fL (7.4-10.4); Monocytes # 0.8 10^3/uL (0.2-0.9); Monocytes % 10.8 %; Neutrophils # 4.59 10^3/uL (1.8-7.7); Neutrophils % 60.7 %; Nucleated Red Blood Cells % 0 %; Platelet Count 192 10^3/cmm (130-400); Red Blood Count 4.07 10^6/uL (4.1-5.3); Red Cell Distribution Width 12.2 % (12.1-15.1); White Blood Count 7.6 10^3/uL (4.0-10.0)
[2021-11-07 13:00] LABS: Alanine Aminotransferase 102 U/L (0-41); Albumin Level 3.9 g/dL (3.5-5.2); Alkaline Phosphatase 91 IU/L (40-130); Anion Gap 15.6 (5-19); Aspartate Amino Transferase 55 U/L (0-40); Blood Urea Nitrogen 15 mg/dL (8-23); Calcium 8.7 mg/dL (8.5-10.5); Carbon Dioxide 39 mmol/L (22-29); Chloride 88 mmol/L (98-107); Creatinine Clr Calc Pharmacy 92.6901; Globulin 3.6 g/dL (1.3-4.6); Glomerular Filtration Rate 113.2 mL/min (90-130); Glucose 112 mg/dL (65-115); Osmolality Calculated 290 mOsm/kg (285-295); Potassium 3.6 mmol/L (3.5-5.1); Sodium 139 mmol/L (136-145); Total Bilirubin 0.3 mg/dL (0.15-1.2); Total Protein 7.5 g/dL (6.6-8.7)
[2021-11-07 13:27] LABS: Troponin T (5th) Once 9 ng/L (0-15)
--- NOTE | 2021-11-07 13:42 | W.ED.GENADLT ---
Documented by User: ESTRELLA Hutchins 11/07/21 13:44 HPI - General Adult General: Chief complaint: Shortness of Breath/Dyspnea Stated complaint: COUGH/SOB/CP Time Seen by Provider: 11/07/21 13:33 History of Present Illness: HPI narrative: Patient said he had a cough last few days. Denies chest pain or pressure he said her little bit down his arm when he coughed. Denies any fever or Covid exposure. Denies any body aches nausea or vomiting. Onset (ago): day(s) Severity: mild Severity scale (1-10): 1 Associated symptoms: Reports cough; Deny chest pain, dyspnea, headache(s), nausea, rash or vomiting Review of Systems Const: Denies: fever(s), chills or body aches Eyes: Denies: change in vision or blurry vision ENMT: Reports: nasal congestion; Denies: throat pain Card: Denies: chest pain or dyspnea on exertion Resp: Reports: productive cough (Whitish sputum); Denies: dyspnea or non-productive cough GI: Denies: abdominal pain, nausea or vomiting : Denies: difficulty urinating Musc: Denies: extremity pain Skin/Breast: Denies: rash Neuro: Denies: headache(s) Psych: Denies: anxiety or depression Chaitanya/Lymph: Denies: easy bruising PFSH ED PFSH: Medical History Acquired arm deformity COPD (chronic obstructive pulmonary disease) Fixation hardware in spine GERD (gastroesophageal reflux disease) Hyperglycemia Kyphoscoliosis Obesity Scoliosis Tobacco chew use Surgical History H/O arthroscopy of shoulder History of appendectomy History of [place] fundoplication Hx of cholecystectomy Family History Father Cancer Social History Quit status (tobacco): has quit using tobacco Year quit tobacco: 2010 Former quit date comment: 2ppd x 10 years Second hand smoke exposure: No Smoking risk assessment/counseling performed?: Yes Alcohol intake: never Lives independently: Yes Household members: spouse Housing: House Marital status: service: No Current occupational status: employed 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 Pets and animals: Yes History of recent travel: No Current gender identity: Male Physical Exam Const: COMMON NORMALS: no acute distress, average body habitus and patient oriented x3 HENMT: COMMON NORMALS: normocephalic HEAD & SCALP: normal to inspection and normocephalic FACE & SINUS: normal facial exam Eye: COMMON NORMALS: conjunctivae normal GENERAL EYE: appearance normal, both eyes and all related structures CONJUNCTIVA: Yes conjunctivae normal Neck/C-Spine: COMMON NORMALS: no JVD Chest: COMMONS NORMALS: normal inspection of the chest Resp: COMMON NORMALS: normal respiratory effort and clear to auscultation bilaterally AUSCULTATION: clear to auscultation bilaterally Cardio: COMMON NORMALS: no JVD, regular rate and regular rhythm RATE: regular rate RHYTHM: regular rhythm GI: COMMON NORMALS: Normal to inspection, nondistended, normoactive bowel sounds present Extremity: COMMON NORMALS: normal to inspection and full ROM Neuro: COMMON NORMALS: patient oriented x3 Course Vital Signs: Vital signs: Vital Signs Temperature 98.7 F 11/07/21 11:38 Pulse Rate 71 11/07/21 11:38 Respiratory Rate 18 11/07/21 11:38 Blood Pressure 110/67 11/07/21 11:38 Pulse Oximetry 98 11/07/21 11:38 MDM - General Adult MDM Narrative: Medical decision making narrative: Brief history and physical exam was performed as part of the triage process. Due to current ED wait time patient will be placed in waiting room until a room becomes available. Explained to patient he/she will be seen in order of severity. Patient is currently safe to wait in the waiting room until we can get them placed. Patient informed that if condition worsens at any time to please let the front desk admin know. 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 Patient no acute distress labs and x-ray reviewed which were negative for any concerning findings. Patient will be treated for bronchitis. Lab Data: Labs: Lab Results 11/07/21 11/07/21 12 12:29 12:29 12:29 WBC 7.6 10^3/uL 10^3/ uL (4.0-10.0) RBC 4.07 10^6/uL L 10 ^6/uL (4.1-5.3) Hgb 12.6 g/dL g/dL (11.7-16.6) Hct 40.1 % L % (42.0-52.0) MCV 98.5 fl H fl (80-94) MCH 31.0 pg pg (28.0-34.0) MCHC 31.4 g/dL g/dL (30.0-36.0) RDW 12.2 % % (12.1-15.1) Plt Count 192 10^3/cmm 10^3 /cmm (130-400) MPV 9.3 fL fL (7.4-10.4) Neut % (Auto) 60.7 % % Lymph % (Auto) 24.9 % % Meigs % (Auto) 10.8 % % Eos % (Auto) 2.8 % % Baso % (Auto) 0.4 % % Neut # (Auto) 4.59 10^3/uL 10^3 /uL (1.8-7.7) Lymph # (Auto) 1.9 10^3/uL 10^3/ uL (0.8-4.8) Meigs # (Auto) 0.8 10^3/uL 10^3/ uL (0.2-0.9) Eos # (Auto) 0.2 10^3/uL 10^3/ uL (0.0-0.8) Baso # (Auto) 0.0 10^3/uL 10^3/ uL (0.0-0.1) Nucleated RBC % (a uto) 0 % % Nucleated RBCs # 0.0 /100WBC /100W BC Sodium 139 mmol/L mmol/L (136-145) Potassium 3.6 mmol/L mmol/L (3.5-5.1) Chloride 88 mmol/L L mmol/ L (98-107) Carbon Dioxide 39 mmol/L H mmol/ L (22-29) Anion Gap 15.6 (5-19) BUN 15 mg/dL mg/dL (8-23) Creatinine 0.7 mg/dL mg/dL (0.7-1.2) GFR Calculation 113.2 mL/min mL/m in (90-130) Glucose 112 mg/dL mg/dL (65-115) Calculated Osmolal ity 290 mOsm/kg mOsm/ kg (285-295) Calcium 8.7 mg/dL mg/dL (8.5-10.5) Total Bilirubin 0.3 mg/dL mg/dL (0.15-1.2) AST 55 U/L H U/L (0-40) ALT 102 U/L H U/L (0-41) Alkaline Phosphata se 91 IU/L IU/L (40-130) Troponin T Gen 5 n g/L 9 ng/L ng/L (0-15) Total Protein 7.5 g/dL g/dL (6.6-8.7) Albumin 3.9 g/dL g/dL (3.5-5.2) Globulin 3.6 g/dL g/dL (1.3-4.6) Discharge Plan Discharge Patient Disposition: Home Clinical Impression: Bronchitis Condition: Stable Prescriptions: New doxycycline hyclate 100 mg capsule 100 mg PO BID 7 Days Qty: 14 RF: 0 Decadron 6 mg tablet 6 mg PO DAILY Qty: 7 RF: 0 No Action bumetanide 2 mg tablet 2 mg PO BID Qty: 60 RF: 3 potassium chloride 10 mEq capsule, extended release 20 meq PO DAILY@0800 Qty: 60 RF: 3 fluticasone propionate 50 mcg/actuation spray,suspension See Rx Instructions .ROUTE .COMPLEX RF: 0 calcium 1 tab PO DAILY@0800 RF: 0 albuterol sulfate 2.5 mg /3 mL (0.083 %) solution for nebulization 2.5 mg inhalation Q4H PRN (Reason: shortness of breath or wheezing) Qty: 90 RF: 0 aspirin 81 mg tablet,delayed release (DR/EC) 81 mg PO DAILY Qty: 30 RF: 0 Discharge Orders: Discharge ED (Routine); Ordered 11/07/21 Ordered By: Sukhjinder Khan Referrals: Saji York [Primary Care Provider] - Discharge Diet: Usual diet Discharge Activity: Increase activity as tolerated Patient Instructions: Acute Bronchitis (ED) Activity Restrictions/Additional Instructions: Follow-up with medical provider as directed. Take medications as prescribed. Return to the ER or your medical provider if condition worsens. Please read and understand discharge instructions. If any questions ask please. Coding Level of Care Code ED In School Suspension Aide for Chg Fwd Exam Comprehensive Documented by User: Venkatesh Burger DO 11/08/21 07:13 HPI - General Adult General: Chief complaint: Shortness of Breath/Dyspnea Stated complaint: COUGH/SOB/CP Time Seen by Provider: 11/07/21 13:33 PFSH ED PFSH: Medical History Acquired arm deformity COPD (chronic obstructive pulmonary disease) Fixation hardware in spine GERD (gastroesophageal reflux disease) Hyperglycemia Kyphoscoliosis Obesity Scoliosis Tobacco chew use Surgical History H/O arthroscopy of shoulder History of appendectomy History of [place] fundoplication Hx of cholecystectomy Family History Father Cancer Social History Quit status (tobacco): has quit using tobacco Year quit tobacco: 2010 Former quit date comment: 2ppd x 10 years Second hand smoke exposure: No Smoking risk assessment/counseling performed?: Yes Alcohol intake: never Lives independently: Yes Household members: spouse Housing: House Marital status: service: No Current occupational status: employed 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 Agree with assessment and plan. Lab Data: Labs: Lab Results 11/07/21 11/07/21 11/07/21 12:29 12:29 12:29 WBC 7.6 10^3/uL 10^3/ uL (4.0-10.0) RBC 4.07 10^6/uL L 10 ^6/uL (4.1-5.3) Hgb 12.6 g/dL g/dL (11.7-16.6) Hct 40.1 % L % (42.0-52.0) MCV 98.5 fl H fl (80-94) MCH 31.0 pg pg (28.0-34.0) MCHC 31.4 g/dL g/dL (30.0-36.0) RDW 12.2 % % (12.1-15.1) Plt Count 192 10^3/cmm 10^3 /cmm (130-400) MPV 9.3 fL fL (7.4-10.4) Neut % (Auto) 60.7 % % Lymph % (Auto) 24.9 % % Meigs % (Auto) 10.8 % % Eos % (Auto) 2.8 % % Baso % (Auto) 0.4 % % Neut # (Auto) 4.59 10^3/uL 10^3 /uL (1.8-7.7) Lymph # (Auto) 1.9 10^3/uL 10^3/ uL (0.8-4.8) Meigs # (Auto) 0.8 10^3/uL 10^3/ uL (0.2-0.9) Eos # (Auto) 0.2 10^3/uL 10^3/ uL (0.0-0.8) Baso # (Auto) 0.0 10^3/uL 10^3/ uL (0.0-0.1) Nucleated RBC % (a uto) 0 % % Nucleated RBCs # 0.0 /100WBC /100W BC Sodium 139 mmol/L mmol/L (136-145) Potassium 3.6 mmol/L mmol/L (3.5-5.1) Chloride 88 mmol/L L mmol/ L (98-107) Carbon Dioxide 39 mmol/L H mmol/ L (22-29) Anion Gap 15.6 (5-19) BUN 15 mg/dL mg/dL (8-23) Creatinine 0.7 mg/dL mg/dL (0.7-1.2) GFR Calculation 113.2 mL/min mL/m in (90-130) Glucose 112 mg/dL mg/dL (65-115) Calculated Osmolal ity 290 mOsm/kg mOsm/ kg (285-295) Calcium 8.7 mg/dL mg/dL (8.5-10.5) Total Bilirubin 0.3 mg/dL mg/dL (0.15-1.2) AST 55 U/L H U/L (0-40) ALT 102 U/L H U/L (0-41) Alkaline Phosphata se 91 IU/L IU/L (40-130) Troponin T Gen 5 n g/L 9 ng/L ng/L (0-15) Total Protein 7.5 g/dL g/dL (6.6-8.7) Albumin 3.9 g/dL g/dL (3.5-5.2) Globulin 3.6 g/dL g/dL (1.3-4.6) Discharge Plan Discharge Patient Disposition: Home Clinical Impression: Bronchitis Condition: Stable Prescriptions: New doxycycline hyclate 100 mg capsule 100 mg PO BID 7 Days Qty: 14 RF: 0 Decadron 6 mg tablet 6 mg PO DAILY Qty: 7 RF: 0 No Action bumetanide 2 mg tablet 2 mg PO BID Qty: 60 RF: 3 potassium chloride 10 mEq capsule, extended release 20 meq PO DAILY@0800 Qty: 60 RF: 3 fluticasone propionate 50 mcg/actuation spray,suspension See Rx Instructions .ROUTE .COMPLEX RF: 0 calcium 1 tab PO DAILY@0800 RF: 0 albuterol sulfate 2.5 mg /3 mL (0.083 %) solution for nebulization 2.5 mg inhalation Q4H PRN (Reason: shortness of breath or wheezing) Qty: 90 RF: 0 aspirin 81 mg tablet,delayed release (DR/EC) 81 mg PO DAILY Qty: 30 RF: 0 Discharge Orders: Discharge ED (Routine); Ordered 11/07/21 Ordered By: Sukhjinder Khan Referrals: Saji York [Primary Care Provider] - Discharge Diet: Usual diet Discharge Activity: Increase activity as tolerated Patient Instructions: Acute Bronchitis (ED) Activity Restrictions/Additional Instructions: Follow-up with medical provider as directed. Take medications as prescribed. Return to the ER or your medical provider if condition worsens. Please read and understand discharge instructions. If any questions ask please. Coding Level of Care Code ED In School Suspension Aide for Edwin Fwd Exam Comprehensive
== END 2021-11-07 14:29 | disposition home or self-care (01) ==
PROVIDERS: Emergency Medicine; Emergency Provider Nurse Practitioner Family; PCP Family Medicine
DX: J44.9 Chronic obstructive pulmonary disease, unspecified (principal); Z79.82 Long term (current) use of aspirin; Z87.891 Personal history of nicotine dependence
CPT/HCPCS: 36415; 71045; 80053; 84484; 85025; 99282

== ENCOUNTER → 2021-11-29 14:20 | Outpatient (BNVA) | payer MEDICARE, SELFPAY | PROVIDERS: PCP Family Medicine; Visit Provider Internal Medicine | DX: I50.32 Chronic diastolic (congestive) heart failure (principal); R06.02 Shortness of breath; R55 Syncope and collapse; R29.6 Repeated falls; Z09 Encounter for follow-up examination after completed treatment for conditions other than malignant neoplasm; J96.12 Chronic respiratory failure with hypercapnia; G47.33 Obstructive sleep apnea (adult) (pediatric); M41.9 Scoliosis, unspecified; Z72.0 Tobacco use; J44.9 Chronic obstructive pulmonary disease, unspecified; J98.4 Other disorders of lung; Z87.891 Personal history of nicotine dependence | CPT/HCPCS: 80048; 83880 ==

== ENCOUNTER 2022-01-12 12:59 | Emergency (ER) | payer MEDICARE, MEDICAID, SELFPAY ==
[2022-01-12 13:05] VITALS: BP 129/74; PULSE 88; RESP 20; TEMP 36.8; O2SAT 97; BMI 45.7
[2022-01-12 13:34] VITALS: BP 110/71; PULSE 78; RESP 16; O2SAT 100
--- NOTE | 2022-01-12 13:50 | XRR_ITS ---
PROCEDURE INFORMATION: Exam: XR Chest Exam date and time: 01/12/2022 1:50 PM Age: 66 years old Clinical indication: Dyspnea; Prior surgery; Surgery date: 6+ months TECHNIQUE: Imaging protocol: XR of the chest. Views: 1 view. COMPARISON: CR XR chest 1V portable [id number] 11/07/2021 12:06 PM FINDINGS: Lungs: The lung volumes are low. No significant lung consolidation. Pleural spaces: Unremarkable. No pleural effusion. No pneumothorax. Heart/Mediastinum: Unremarkable. No cardiomegaly. Bones/joints: There is postsurgical change in the thoracic spine. There is a thoracolumbar spine scoliosis. XR/XR chest 1V portable [id number] IMPRESSION: There are no acute concerning abnormalities.
--- NOTE | 2022-01-12 14:00 | ED_ITS ---
HPI - General Adult General: Chief complaint: General Medical Stated complaint: low BP Time Seen by Provider: 01/12/22 13:14 History of Present Illness: CC: Dyspnea HPI: This is a 66yo patient w/ hx of CHF on bumax 2mg daily, COPD, vavular disease, HTN presenting ot the ED with dyspnea and increased work of breathing x 2 weeks in the setting of increased weight gain and lower extremity swelling. Patient, patient tells me that earlier this morning around 9:30 AM, he experienced lightheadedness and chest pressure with radiation to the left arm. At that point, patient's took the blood pressure and noticed that his blood pressure was low at 90/30. Patient almost passed out from the incident. Patient tells me that he is on lisinopril and spironolactone for blood pressure control. He recently was started on lisinopril 20 mg daily. Has not had any prone with blood pressures over the last 2 days. He has not changed his lisinopril dose recently. Patient has no fever/chill, or sputum production. No GI or other complaints. Denies any pleuritic chest pain, recent s urgery/immobilization/travel, or hematemesis or hx of VTE in the past. Onset: leg swelling, abdominal distension and dyspnea chronic worsening x 2 weeks, chest pain/N/light-headedness at 9:30am Duration: ongoing Location: home Severity: moderate Associated symptoms: Reports chest pain, dyspnea and nausea; Deny rash, palpitations or vomiting Review of Systems Const: Denies: fever(s) or chills Eyes: Denies: change in vision ENMT: Denies: mouth pain Card: Reports: chest pain; Denies: palpitations Resp: Reports: dyspnea; Denies: non-productive cough GI: Reports: nausea; Denies: abdominal pain, vomiting or diarrhea : Denies: dysuria Musc: Denies: extremity pain Skin/Breast: Denies: rash or new lesions Neuro: Denies: weakness in extremities Psych: Reports: other (Normal mood) Chaitanya/Lymph: Denies: easy bruising PFSH ED PFSH: Medical History Acquired arm deformity COPD (chronic obstructive pulmonary disease) Fixation hardware in spine GERD (gastroesophageal reflux disease) Hyperglycemia Kyphoscoliosis Obesity Scoliosis Tobacco chew use Surgical History H/O arthroscopy of shoulder History of appendectomy History of [place] fundoplication Hx of cholecystectomy Family History Father Cancer Social History Smoking and tobacco status: former smoker Quit status (tobacco): has quit using tobacco Year quit tobacco: 2010 Former quit date comment: 2ppd x 10 years Second hand smoke exposure: No Smoking risk assessment/counseling performed?: Yes Alcohol intake: never Lives independently: Yes Household members: spouse Housing: House Marital status: service: No Current occupational status: employed 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 Pets and animals: Yes History of recent travel: No Current gender identity: Male Physical Exam Const: COMMON NORMALS: alert HENMT: COMMON NORMALS: atraumatic HEAD & SCALP: atraumatic MOUTH: moist mucous membranes not abnormal Eye: COMMON NORMALS: EOMs intact bilaterally and conjunctivae normal CONJUNCTIVA: Yes conjunctivae normal Neck/C-Spine: COMMON NORMALS: full ROM and supple Resp: COMMON NORMALS: normal respiratory effort OTHER: +decreased breath sounds b/l Cardio: COMMON NORMALS: regular rate RATE: regular rate GI: COMMON NORMALS: Soft to palpation and non-tender PALPATION: Yes Soft to palpation OTHER: +abdominal distension. No focal TTP. NO guarding rebound, guarding, rigidity. No CVA tenderness to percussion. Neg Porter/Neg McBurney's point tenderness, no suprabupic tenderness to palpation. Extremity: COMMON NORMALS: full ROM OTHER: 2+ pitting edema in the lower extremities Neuro: SENSORIUM/ORIENTATION: Yes alert MOTOR EXAM: No Abnormal motor strength present and Other motor observations present (no focal motor deficits) Psych: COMMON NORMALS: speech normal SPEECH: Yes normal speech MOOD & AFFECT: Yes euthymic mood Course Vital Signs: Vital signs: Vital Signs Temperature 98.2 F 01/12/22 13:05 Pulse Rate 72 01/12/22 15:12 Respiratory Rate 22 H 01/12/22 15:12 Blood Pressure 100/53 01/12/22 15:12 Pulse Oximetry 100 01/12/22 15:12 MDM - General Adult Medical Decision Making [66]yo pt w/ hx of CHF presenting to the ED with dyspnea and increased work of breathing concerning acute on chronic CHF exacerbation. Physical exam consistent signs of fluid overload including crackles bilaterally and LE swelling. Workup today: ECG, CBC, BMP, Troponin, BNP, CXR. Intervention: IV lasix after potassium check Based on history, exam and findings, presentation most consistent with acute on chronic heart failure. Low suspicion for PNA, ACS, tamponade, aortic dissection. EKG: No STEMI and no evidence of Brugada?s sign, delta wave, epsilon wave, significantly prolonged QTc, or malignant arrhythmia. Troponin x1 within normal limit. BNP appears to be within normal limit. X-ray chest is clear. However given new onset of volume overload, chest pain, lightheadedness, patient may have experienced cardiac dysrhythmia earlier today. Have offered patient admission. However, at 4:30pm, patient electing to leave AMA. Patient counseled regarding risks of leaving including severe morbidity, brain , hypoxia, arrythmia, , chest pain, or any other unwanted consequences of leaving against medical advice today. Patient verbalizes understanding of the risks and still wishes to leave AMA. Signed AMA paperwork. Patient advised that patient is welcome to return at any time. Was instructed that patient may come back if symptoms continue to persist and that emergent adverse conditions have not fully been ruled out. Patient is A&Ox3 and has capacity and is of sound mind to make decisions. Patient reassures that he will follow-up with his freight solicitor on Friday and be seen in clinic. Patient tests that he lives about 15 to 20 minutes from the emergency room, to the emergency room should he have any more episode of chest pain, arm pain, shortness of breath, lightheadedness, or any new concerning complaints. Disposition: AMA Lab Data : 01/12/22 14:20 01/12/22 14:20 Radiology Impressions Chest X-Ray 01/12/22 13:50 IMPRESSION: There are no acute concerning abnormalities. Laboratory Results WBC 9.0 10^3/uL (4.0-10.0) 01/12/22 14:20 RBC 3.95 10^6/uL (4.1-5.3) L 01/12/22 14:20 Hgb 12.2 g/dL (11.7-16.6) 01/12/22 14:20 Hct 43.5 % (42.0-52.0) 01/12/22 14:20 MCV 110.1 fl (80-94) H 01/12/22 14:20 MCH 30.9 pg (28.0-34.0) 01/12/22 14:20 MCHC 28.0 g/dL (30.0-36.0) L 01/12/22 14:20 RDW 12.1 % (12.1-15.1) 01/12/22 14:20 Plt Count 106 10^3/cmm (130-400) L 01/12/22 14:20 MPV 9.9 fL (7.4-10.4) 01/12/22 14:20 Neut % (Auto) 60.9 % 01/12/22 14:20 Lymph % (Auto) 23.9 % 01/12/22 14:20 [place] % (Auto) 11.1 % 01/12/22 14:20 Eos % (Auto) 3.0 % 01/12/22 14:20 Baso % (Auto) 0.7 % 01/12/22 14:20 Neut # (Auto) 5.49 10^3/uL (1.8-7.7) 01/12/22 14:20 Lymph # (Auto) 2.2 10^3/uL (0.8-4.8) 01/12/22 14:20 [place] # (Auto) 1.0 10^3/uL (0.2-0.9) H 01/12/22 14:20 Eos # (Auto) 0.3 10^3/uL (0.0-0.8) 01/12/22 14:20 Baso # (Auto) 0.1 10^3/uL (0.0-0.1) 01/12/22 14:20 Nucleated RBC % (auto) 0 % 01/12/22 14:20 Nucleated RBCs # 0.0 /100WBC 01/12/22 14:20 Sodium 135 mmol/L (136-145) L 01/12/22 14:20 Potassium 4.6 mmol/L (3.5-5.1) 01/12/22 14:20 Chloride 90 mmol/L (98-107) L 01/12/22 14:20 Carbon Dioxide 33 mmol/L (22-29) H 01/12/22 14:20 Anion Gap 16.6 (5-19) 01/12/22 14:20 BUN 26 mg/dL (8-23) H 01/12/22 14:20 Creatinine 0.8 mg/dL (0.7-1.2) 01/12/22 14:20 GFR Calculation 97.0 mL/min (90-130) 01/12/22 14:20 Glucose 178 mg/dL (65-115) H 01/12/22 14:20 Calculated Osmolality 289 mOsm/kg (285-295) 01/12/22 14:20 Calcium 9.2 mg/dL (8.5-10.5) 01/12/22 14:20 Magnesium 2.0 mg/dL (1.7-2.3) 01/12/22 14:20 Total Bilirubin 0.2 mg/dL (0.15-1.2) 01/12/22 14:20 AST 41 U/L (0-40) H 01/12/22 14:20 ALT 65 U/L (0-41) H 01/12/22 14:20 Alkaline Phosphatase 92 IU/L (40-130) 01/12/22 14:20 Troponin T Baseline 6 ng/L (0-15) 01/12/22 14:20 NT-Pro-B Natriuret Pep 26 pg/mL (0-125) 01/12/22 14:20 Total Protein 6.3 g/dL (6.6-8.7) L 01/12/22 14:20 Albumin 3.9 g/dL (3.5-5.2) 01/12/22 14:20 Globulin 2.4 g/dL (1.3-4.6) 01/12/22 14:20 Lipase 53 U/L (13-60) 01/12/22 14:20 Imaging Data Other Imaging: Radiologist's impression: [address] [place] [address] XRay Report Signed Patient: Sukumar Bangura Unit #: [id number] : 1955 Age/Sex: 66 / M ADM Date: 01/12/22 Loc: ER Room/Bed: Attending Dr: Ordering Provider/Ordering MD: Mikie Alexander MD Date of Service: 01/12/22 Procedure(s): XR chest 1V portable [id number] Accession Number(s): [id number] Report Number: [id number] PROCEDURE INFORMATION: Exam: XR Chest Exam date and time: 01/12/2022 1:50 PM Age: 66 years old Clinical indication: Dyspnea; Prior surgery; Surgery date: 6+ months TECHNIQUE: Imaging protocol: XR of the chest. Views: 1 view. COMPARISON: CR XR chest 1V portable [id number] 11/07/2021 12:06 PM FINDINGS: Lungs: The lung volumes are low. No significant lung consolidation. Pleural spaces: Unremarkable. No pleural effusion. No pneumothorax. Heart/Mediastinum: Unremarkable. No cardiomegaly. Bones/joints: There is postsurgical change in the thoracic spine. There is a thoracolumbar spine scoliosis. XR/XR chest 1V portable [id number] IMPRESSION: There are no acute concerning abnormalities. ? Dictated By: Kalee Griffin MD Signed By: Kalee Griffin MD Signed Date/Time: 01/12/22 1452 DD/ 1350 Discharge Plan Discharge Patient Disposition: Left Against Medical Advice Clinical Impression: CHF exacerbation, Chest pain, Light headedness Condition: Stable Prescriptions: No Action potassium chloride 10 mEq capsule, extended release 20 meq PO DAILY@0800 Qty: 180 3RF calcium 1 tab PO DAILY@0800 0RF albuterol sulfate 2.5 mg /3 mL (0.083 %) solution for nebulization 2.5 mg inhalation Q4H PRN (Reason: shortness of breath or wheezing) Qty: 90 0RF aspirin 81 mg tablet,delayed release (DR/EC) 81 mg PO DAILY Qty: 30 0RF hydrocodone-acetaminophen 5-325 mg tablet 1 tab PO Q6H 0RF spironolactone 25 mg tablet 25 mg PO DAILY 0RF lisinopril 2.5 mg tablet 25 mg PO DAILY 0RF bumetanide 2 mg tablet 2 mg PO BID 0RF Referrals: Saji York [Primary Care Provider] - Coding Level of Care Code ED Manager Research Development for Chg Fwd Exam Comprehensive
[2022-01-12 14:25] LABS: Basophils # 0.1 10^3/uL (0.0-0.1); Basophils % 0.7 %; Eosinophils # 0.3 10^3/uL (0.0-0.8); Hematocrit 43.5 % (42.0-52.0); Hemoglobin 12.2 g/dL (11.7-16.6); Lymphocytes # 2.2 10^3/uL (0.8-4.8); Lymphocytes % 23.9 %; Mean Corpuscular Hemoglobin 30.9 pg (28.0-34.0); Mean Corpuscular Volume 110.1 fl (80-94); Mean Platelet Volume 9.9 fL (7.4-10.4); Monocytes % 11.1 %; Neutrophils # 5.49 10^3/uL (1.8-7.7); Neutrophils % 60.9 %; Nucleated Red Blood Cells % 0 %; Platelet Count 106 10^3/cmm (130-400); Red Blood Count 3.95 10^6/uL (4.1-5.3); Red Cell Distribution Width 12.1 % (12.1-15.1)
[2022-01-12 14:40] LABS: Slide Review Slide Review Perform
[2022-01-12 14:56] LABS: Troponin(5th) Baseline 6 ng/L (0-15)
[2022-01-12 15:01] LABS: Alanine Aminotransferase 65 U/L (0-41); Albumin Level 3.9 g/dL (3.5-5.2); Alkaline Phosphatase 92 IU/L (40-130); Aspartate Amino Transferase 41 U/L (0-40); Blood Urea Nitrogen 26 mg/dL (8-23); Calcium 9.2 mg/dL (8.5-10.5); Carbon Dioxide 33 mmol/L (22-29); Chloride 90 mmol/L (98-107); Creatinine Clr Calc Pharmacy 94.3443; Globulin 2.4 g/dL (1.3-4.6); Glucose 178 mg/dL (65-115); Lipase 53 U/L (13-60); NT Pro B Type Natriuretic Pept 26 pg/mL (0-125); Osmolality Calculated 289 mOsm/kg (285-295); Sodium 135 mmol/L (136-145); Total Bilirubin 0.2 mg/dL (0.15-1.2); Total Protein 6.3 g/dL (6.6-8.7)
[2022-01-12 15:08] LABS: Anion Gap 16.6 (5-19); Potassium 4.6 mmol/L (3.5-5.1)
[2022-01-12 15:12] VITALS: BP 100/53; PULSE 72; RESP 22; O2SAT 100
--- NOTE | 2022-01-12 15:51 | ECG_ITS ---
[facility] Test Date: 2022-01-12 Pat Name: Sukumar Bangura Department: Room: Gender: Male Flanger: : 1955 Requested By: Mikie Alexander Order Number: [id number] Garcia MD: Chanda Anders M.D. Measurements Intervals [place] Rate: 69 P: 43 ID: [id number] QRS: -1 QRSD: 102 T: 33 QT: 407 QTc: 439 Interpretive Statements SINUS RHYTHM WITH SINUS ARRHYTHMIA INCOMPLETE RIGHT BUNDLE BRANCH BLOCK [90+ ms QRS DURATION, TERMINAL R IN V1/V2, 40+ ms S IN I/aVL/V4/V5/V6] Compared to ECG 06/02/2021 10:46:13 No significant changes Electronically Signed On 01-12-2022 18:09:37 [employer] SUR[employer]YOR by Chanda Anders M.D. [email or web address]
[2022-01-12 16:30] VITALS: BP 120/56
[2022-01-12 16:58] LABS: Troponin 5 2HR 9.75 ng/L (0-15)
[2022-01-12 17:13] LABS: Troponin 5 2HR Delta 3.75 ABS# (0-10)
== END 2022-01-12 16:48 | disposition left against medical advice (07) ==
PROVIDERS: Emergency Provider Emergency Medicine; PCP Family Medicine
DX: I11.0 Hypertensive heart disease with heart failure (principal); I50.9 Heart failure, unspecified; R07.9 Chest pain, unspecified; R42 Dizziness and giddiness; Z53.21 Procedure and treatment not carried out due to patient leaving prior to being seen by health care provider; Z79.82 Long term (current) use of aspirin; J44.9 Chronic obstructive pulmonary disease, unspecified; Z87.891 Personal history of nicotine dependence
CPT/HCPCS: 36415; 71045; 80053; 83690; 83735; 83880; 84484; 85025; 93005; 99283

== ENCOUNTER → 2022-02-12 13:39 | Outpatient (BNVA) | payer MEDICARE, MEDICAID, SELFPAY | PROVIDERS: PCP Family Medicine; Visit Provider Internal Medicine Pulmonary Disease | DX: J44.9 Chronic obstructive pulmonary disease, unspecified (principal); J96.12 Chronic respiratory failure with hypercapnia; J98.4 Other disorders of lung; M41.9 Scoliosis, unspecified; I50.32 Chronic diastolic (congestive) heart failure; K21.9 Gastro-esophageal reflux disease without esophagitis; E83.52 Hypercalcemia; F17.220 Nicotine dependence, chewing tobacco, uncomplicated; R07.9 Chest pain, unspecified | CPT/HCPCS: 80048; 83735; 83880; 99214 ==

== ENCOUNTER 2022-03-02 16:06 | Inpatient (IN) | payer MEDICARE, MEDICAID, SELFPAY ==
[2022-03-02 16:48] VITALS: PULSE 73; RESP 18; TEMP 36.7; O2SAT 98; BMI 44.9
[2022-03-02 16:59] LABS: Glucose Point of Care 128 mg/dL (70-110)
[2022-03-02 17:21] LABS: Basophils # 0.1 10^3/uL (0.0-0.1); Basophils % 0.4 %; Eosinophils # 0.1 10^3/uL (0.0-0.8); Eosinophils % 0.5 %; Hematocrit 35.4 % (42.0-52.0); Hemoglobin 11.3 g/dL (11.7-16.6); Lymphocytes # 2.3 10^3/uL (0.8-4.8); Lymphocytes % 17.2 %; Mean Corpuscular HGB Conc 31.9 g/dL (30.0-36.0); Mean Corpuscular Hemoglobin 31.7 pg (28.0-34.0); Mean Corpuscular Volume 99.4 fl (80-94); Mean Platelet Volume 9.5 fL (7.4-10.4); Monocytes # 1.7 10^3/uL (0.2-0.9); Monocytes % 12.5 %; Neutrophils # 9.34 10^3/uL (1.8-7.7); Neutrophils % 68.4 %; Nucleated Red Blood Cells % 0 %; Platelet Count 223 10^3/cmm (130-400); Red Blood Count 3.56 10^6/uL (4.1-5.3); White Blood Count 13.6 10^3/uL (4.0-10.0)
--- NOTE | 2022-03-02 17:28 | ED_ITS ---
HPI - General Adult General: Chief complaint: Dizziness Stated complaint: Low B/P Time Seen by Provider: 03/02/22 16:52 History of Present Illness: Patient is a 66-year-old male with a history of CHF on Bumex 2 mg daily, COPD, valvular disease, hypertension presenting to the emergency room General weakness and lightheadedness since 12:00. Patient has had he almost passed out around that time. Since then, patient has had persistently low blood pressure. In triage, patient had blood pressure 70/30. Patient has no other focal complaints other than lightheadedness. Onset: 12pm Duration:ongoing Location:home Severity:moderate Associated symptoms: Deny chest pain, dyspnea, nausea, rash, palpitations or vomiting Review of Systems Const: Denies: fever(s) or chills Eyes: Denies: change in vision ENMT: Denies: mouth pain Card: Denies: chest pain or palpitations Resp: Denies: dyspnea or non-productive cough GI: Denies: abdominal pain, nausea, vomiting or diarrhea : Denies: dysuria Musc: Denies: extremity pain Skin/Breast: Denies: rash or new lesions Neuro: Denies: weakness in extremities Psych: Reports: other (Normal mood) Chaitanya/Lymph: Denies: easy bruising PFSH ED PFSH: Medical History Acquired arm deformity COPD (chronic obstructive pulmonary disease) Fixation hardware in spine GERD (gastroesophageal reflux disease) Hyperglycemia Kyphoscoliosis Obesity Scoliosis Tobacco chew use Surgical History H/O arthroscopy of shoulder History of appendectomy History of [place] fundoplication Hx of cholecystectomy Family History Father Cancer Social History Smoking and tobacco status: former smoker Quit status (tobacco): has quit using tobacco Year quit tobacco: 2010 Former quit date comment: 2ppd x 10 years Second hand smoke exposure: No Smoking risk assessment/counseling performed?: Yes Alcohol intake: never Lives independently: Yes Household members: spouse Housing: House Marital status: service: No Current occupational status: employed 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 Pets and animals: Yes History of recent travel: No Current gender identity: Male Physical Exam Const: COMMON NORMALS: alert HENMT: COMMON NORMALS: atraumatic HEAD & SCALP: atraumatic MOUTH: moist mucous membranes not abnormal Eye: COMMON NORMALS: EOMs intact bilaterally and conjunctivae normal CONJUNCTIVA: Yes conjunctivae normal Neck/C-Spine: COMMON NORMALS: full ROM and supple Resp: COMMON NORMALS: normal respiratory effort and clear to auscultation bilaterally AUSCULTATION: clear to auscultation bilaterally Cardio: COMMON NORMALS: regular rate RATE: regular rate GI: COMMON NORMALS: Soft to palpation and non-tender PALPATION: Yes Soft to palpation Extremity: COMMON NORMALS: full ROM Neuro: SENSORIUM/ORIENTATION: Yes alert MOTOR EXAM: No Abnormal motor strength present and Other motor observations present (no focal motor deficits) Psych: COMMON NORMALS: speech normal SPEECH: Yes normal speech MOOD & AFFECT: Yes euthymic mood Procedures Central Line Placement Right IJ: Time Out Performed: Yes Patient Placed on Monitor/Pulse Ox: Yes MD Prep: mask and gown Central Line Prep: Povidone-Iodine 1%, Chlorhexidine scrub and sterile drapes applied Local Anesthetic: lidocaine 1% Amount of anesthesia used (mL): 5 Ultrasound Used for Placement: Yes Central Line Lumen Inserted: triple Complications: other (+failed attempt) Left IJ: Time Out Performed: Yes Patient Placed on Monitor/Pulse Ox: Yes MD Prep: mask, gown and gloves Central Line Prep: Povidone-Iodine 1%, Chlorhexidine scrub and sterile drapes applied Local Anesthetic: lidocaine 1% Amount of anesthesia used (mL): 5 Ultrasound Used for Placement: Yes Central Line Lumen Inserted: triple Complications: other (failed attempt) Left Femoral: Time Out Performed: Yes Patient Placed on Monitor/Pulse Ox: Yes MD Prep: mask and gown Central Line Prep: Povidone-Iodine 1%, Chlorhexidine scrub and sterile drapes applied Local Anesthetic: lidocaine 1% Amount of anesthesia used (mL): 5 Central Line Lumen Inserted: triple Complications: other (+failed attempt x 3) Course Vital Signs: Vital signs: Vital Signs Temperature 98.3 F 03/03/22 20:00 Pulse Rate 87 03/04/22 10:30 Respiratory Rate 20 H 03/04/22 09:30 Blood Pressure 117/45 03/04/22 10:30 Pulse Oximetry 100 03/04/22 10:30 [facility] - General Adult Medical Decision Making 66-year-old male with a history of CHF, COPD presenting to the emergency room with concerns for low blood pressure and generalized weakness. On physical exam, patient was noted to have a blood pressure 60/30. Patient received 1 L fluid followed by 10 mcg/min of Levophed with improvement blood pressure with MAP greater than 65. Decision was made to withhold IVF given concerns for chronic r heart strain and hx of CHF on 2mg of bumex daily. CTA chest abdomen pelvis did not show any acute pathology. Patient did have creatinine 2.1 up from baseline of 1.4 we will rehydrate. I attempted to place a central line in the left groin, right neck, left neck but failed after 5 attempts. I have enlisted to help with Dr. Torrez was also unsuccessful after 2 attempts in right IJ. Patient had significant distortion of anatomy on ultrasound evaluation in the R IJ/L IJ/R groin and L groin. We called Jose to come in and assist us in a midline line placement for levophed drip. Bicarb 44, PCO2 of > 85 chronic retention of COPD. Attempted to remove Levophed however patient was noted to have hypotension. Curently on levophed. XR post central line attempts did not show any pneumothorax. Midline was placed the patient is currently on Levophed. Disposition: ICU Lab Data : 03/04/22 05:02 03/04/22 05:02 Radiology Impressions Chest/Abdomen/Pelvis CTA 03/02/22 17:36 IMPRESSION: 1. Abdominal aorta intact, negative for acute inflammatory process in the abdomen or pelvis. 2. Left kidney lower pole nonobstructive calyceal stone. 3. Left inguinal hernia containing omentum without bowel. 4. Surgical hardware in the spine. 5. Bibasilar atelectasis versus minimal infiltrate. 6. Surgical clips in the upper abdomen. Chest X-Ray 03/02/22 22:55 IMPRESSION: Interval placement of right PICC line in expected positioning. Laboratory Results WBC 13.6 10^3/uL (4.0-10.0) H 03/02/22 17:08 RBC 3.56 10^6/uL (4.1-5.3) L 03/02/22 17:08 Hgb 11.3 g/dL (11.7-16.6) L 03/02/22 17:08 Hct 35.4 % (42.0-52.0) L 03/02/22 17:08 MCV 99.4 fl (80-94) H 03/02/22 17:08 MCH 31.7 pg (28.0-34.0) 03/02/22 17:08 MCHC 31.9 g/dL (30.0-36.0) 03/02/22 17:08 RDW 13.0 % (12.1-15.1) 03/02/22 17:08 Plt Count 223 10^3/cmm (130-400) 03/02/22 17:08 MPV 9.5 fL (7.4-10.4) 03/02/22 17:08 Neut % (Auto) 68.4 % 03/02/22 17:08 Lymph % (Auto) 17.2 % 03/02/22 17:08 [place] % (Auto) 12.5 % 03/02/22 17:08 Eos % (Auto) 0.5 % 03/02/22 17:08 Baso % (Auto) 0.4 % 03/02/22 17:08 Neut # (Auto) 9.34 10^3/uL (1.8-7.7) H 03/02/22 17:08 Lymph # (Auto) 2.3 10^3/uL (0.8-4.8) 03/02/22 17:08 [place] # (Auto) 1.7 10^3/uL (0.2-0.9) H 03/02/22 17:08 Eos # (Auto) 0.1 10^3/uL (0.0-0.8) 03/02/22 17:08 Baso # (Auto) 0.1 10^3/uL (0.0-0.1) 03/02/22 17:08 Nucleated RBC % (auto) 0 % 03/02/22 17:08 Nucleated RBCs # 0.0 /100WBC 03/02/22 17:08 Sodium 133 mmol/L (136-145) L 03/02/22 17:08 Potassium 3.4 mmol/L (3.5-5.1) L 03/02/22 17:08 Chloride 81 mmol/L (98-107) L 03/02/22 17:08 Carbon Dioxide 44 mmol/L (22-29) H* 03/02/22 17:08 Anion Gap 11.4 (5-19) 03/02/22 17:08 BUN 33 mg/dL (8-23) H 03/02/22 17:08 Creatinine 2.1 mg/dL (0.7-1.2) H 03/02/22 17:08 GFR Calculation 31.9 mL/min (90-130) L 03/02/22 17:08 Glucose 125 mg/dL (65-115) H 03/02/22 17:08 POC Glucose 128 mg/dL (70-110) H 03/02/22 16:56 Calculated Osmolality 285 mOsm/kg (285-295) 03/02/22 17:08 Lactate 2.3 mmol/L (0.5-2.2) H 03/02/22 17:08 Calcium 8.9 mg/dL (8.5-10.5) 03/02/22 17:08 Total Bilirubin 0.4 mg/dL (0.15-1.2) 03/02/22 17:08 AST 30 U/L (0-40) 03/02/22 17:08 ALT 48 U/L (0-41) H 03/02/22 17:08 Alkaline Phosphatase 94 IU/L (40-130) 03/02/22 17:08 Troponin T Baseline 22 ng/L (0-15) H 03/02/22 17:08 Troponin T 120 Minute 15.23 ng/L (0-15) H 03/02/22 19:30 Delta Troponin T -6.77 ABS# (0-10) L 03/02/22 19:30 Troponin T Hi Sens 6Hr 15.02 ng/L (0-15) H 03/02/22 00:30 Troponin T Hi Sens 6Hr Delta Not Reportable 03/02/22 00:30 NT-Pro-B Natriuret Pep 231 pg/mL (0-125) H 03/02/22 17:08 Total Protein 7.3 g/dL (6.6-8.7) 03/02/22 17:08 Albumin 4.2 g/dL (3.5-5.2) 03/02/22 17:08 Globulin 3.1 g/dL (1.3-4.6) 03/02/22 17:08 Lipase 103 U/L (13-60) H 03/02/22 17:08 TSH 2.11 uIU/mL (0.27-4.20) 03/02/22 17:08 Free T4 1.37 ng/dL (0.82-1.77) 03/02/22 17:08 Random Cortisol 20.51 ug/dL (2.47-19.5) H 03/02/22 17:08 Urine Color Yellow (Yellow) 03/02/22 18:48 Urine Appearance Clear (CLEAR) 03/02/22 18:48 Urine pH 7 (5-7) 03/02/22 18:48 Ur Specific [place] 1.010 (1.005-1.030) 03/02/22 18:48 Urine Protein Neg (Negative) 03/02/22 18:48 Urine Glucose (UA) Norm (Normal) 03/02/22 18:48 Urine Ketones Negative (Negative) 03/02/22 18:48 Urine Blood Neg (Negative) 03/02/22 18:48 Urine Nitrate Negative (Negative) 03/02/22 18:48 Urine Bilirubin Neg (Negative) 03/02/22 18:48 Urine Urobilinogen Norm mg/dL (Negative) 03/02/22 18:48 Ur Leukocyte Esterase Negative (Negative) 03/02/22 18:48 Imaging Data Other Imaging: Radiologist's impression: [address] [address] [address] Scan Report Signed Patient: Sukumar Bangura Unit #: [id number] : 1955 Age/Sex: 66 / M ADM Date: 03/02/22 Loc: ER Room/Bed: Attending Dr: Ordering Provider/Ordering MD: Mikie Alexander MD Date of Service: 03/02/22 Procedure(s): CT angio chest abdomen pelvis Accession Number(s): [id number] Report Number: [id number] PROCEDURE INFORMATION: Exam: CTA Abdomen and Pelvis Without And With Contrast Exam date and time: 03/02/2022 6:03 PM Age: 66 years old Clinical indication: Hypotension; Prior surgery; Surgery date: 6+ months; Surgery type: Back, appy, gb, juana; Patient HX: Hypotensive, near syncope; Additional info: Eval for pathologies TECHNIQUE: Imaging protocol: Computed tomographic angiography of the abdomen and pelvis without and with contrast. 3D rendering (Not supervised by radiologist): MIP and/or 3D reconstructed images were created by the technologist. Radiation optimization: All CT scans at this facility use at least one of these dose optimization techniques: automated exposure control; mA and/or kV adjustment per patient size (includes targeted exams where dose is matched to clinical indication); or iterative reconstruction. Contrast material: VISI 320; Contrast volume: 95 ml; Contrast route: INTRAVENOUS (IV);? COMPARISON: CT angio chest PE protcl [id number] 01/29/2020 4:23 PM RADIATION DOSE METRICS: Total DLP (mGy-cm): 2572.42 FINDINGS: Lungs: Bibasilar atelectasis versus minimal infiltrate. Aorta: No aortic aneurysm. No aortic dissection. Celiac trunk and mesenteric arteries: No occlusion or significant stenosis. Renal arteries: No occlusion or significant stenosis. Right iliac arteries: No occlusion or significant stenosis. Left iliac arteries: No occlusion or significant stenosis. Liver: No mass. Gallbladder and bile ducts: Unremarkable. No calcified stones. No ductal dilation. Pancreas: Unremarkable. No mass. No ductal dilation. Spleen: Unremarkable. No splenomegaly. Adrenal glands: Unremarkable. No mass. Kidneys and ureters: Left kidney lower pole nonobstructive calyceal stone. Stomach and bowel: Unremarkable. No obstruction. No mucosal thickening. Appendix: No evidence of appendicitis. Intraperitoneal space: Surgical clips in the upper abdomen. Lymph nodes: Unremarkable. No enlarged lymph nodes. Urinary bladder: Unremarkable. No mass. Reproductive: Unremarkable as visualized. Bones/joints: Surgical hardware in the spine. Soft tissues: Left inguinal hernia containing omentum without bowel. CT/CT angio chest abdomen pelvis IMPRESSION: 1. Abdominal aorta intact, negative for acute inflammatory process in the abdomen or pelvis. 2. Left kidney lower pole nonobstructive calyceal stone. 3. Left inguinal hernia containing omentum without bowel. 4. Surgical hardware in the spine. 5. Bibasilar atelectasis versus minimal infiltrate. 6. Surgical clips in the upper abdomen. ? Dictated By: Simba High MD Signed By: Simba High MD Signed Date/Time: 03/02/221828 DD/ [address] [address] XRay Report Signed Patient: Sukumar Bangura Unit #: [id number] : 1955 Age/Sex: 66 / M ADM Date: 01/12/22 Loc: ER Room/Bed: Attending Dr: Ordering Provider/Ordering MD: Mikie Alexander MD Date of Service: 01/12/22 Procedure(s): XR chest 1V portable [id number] Accession Number(s): [id number] Report Number: [id number] PROCEDURE INFORMATION: Exam: XR Chest Exam date and time: 01/12/2022 1:50 PM Age: 66 years old Clinical indication: Dyspnea; Prior surgery; Surgery date: 6+ months TECHNIQUE: Imaging protocol: XR of the chest. Views: 1 view. COMPARISON: CR XR chest 1V portable [id number] 11/07/2021 12:06 PM FINDINGS: Lungs: The lung volumes are low. No significant lung consolidation. Pleural spaces: Unremarkable. No pleural effusion. No pneumothorax. Heart/Mediastinum: Unremarkable. No cardiomegaly. Bones/joints: There is postsurgical change in the thoracic spine. There is a thoracolumbar spine scoliosis. XR/XR chest 1V portable [id number] IMPRESSION: There are no acute concerning abnormalities. ? Dictated By: Kalee Griffin MD Signed By: Kalee Griffin MD Signed Date/Time: 01/12/22 1452 DD/ [address] [address] XRay Report Signed Patient: Sukumar Bangura Unit #: [id number] : 1955 Age/Sex: 66 / M ADM Date: 03/02/22 Loc: ER Room/Bed: Attending Dr: Ordering Provider/Ordering MD: Mikie Alexander MD Date of Service: 03/02/22 Procedure(s): XR chest 1V portable [id number] Accession Number(s): [id number] Report Number: [id number] PROCEDURE INFORMATION: Exam: XR Chest Exam date and time: 03/02/2022 10:04 PM Age: 66 years old Clinical indication: Dyspnea; Additional info: Eval after failed central line placements TECHNIQUE: Imaging protocol: XR of the chest. Views: 1 view. COMPARISON: CR (CHEST, ) 01/12/2022 1:56 PM FINDINGS: Lungs: Hypoinflated lungs. No evident consolidation. Pleural spaces: No pleural effusion. No pneumothorax. Heart/Mediastinum: Similar cardiomegaly. Prominent epicardial fat pad similar to previous exam. Bones/joints: Scoliosis with Oconnor hetal noted throughout the visualized axial spine. Osseous structures are intact. XR/XR chest 1V portable [id number] IMPRESSION: No acute findings. ? Dictated By: Carlos Enrique Mcdonald DO Signed By: Carlos Enrique Mcdonald DO Signed Date/Time: 03/02/222246 DD/ 03 Discharge Plan Discharge Patient Disposition: Admitted As Inpatient Admit Provider: Edwin Norman Clinical Impression: Acute kidney injury superimposed on chronic kidney disease, Light headedness, Hypotension, Hypercapnia Condition: Stable Coding Level of Care Code ED Product Management Manager for Chg Fwd Exam Comprehensive
--- NOTE | 2022-03-02 17:36 | CTR_ITS ---
PROCEDURE INFORMATION: Exam: CTA Abdomen and Pelvis Without And With Contrast Exam date and time: 03/02/2022 6:03 PM Age: 66 years old Clinical indication: Hypotension; Prior surgery; Surgery date: 6+ months; Surgery type: Back, appy, gb, rosi; Patient HX: Hypotensive, near syncope; Additional info: Eval for pathologies TECHNIQUE: Imaging protocol: Computed tomographic angiography of the abdomen and pelvis without and with contrast. 3D rendering (Not supervised by radiologist): MIP and/or 3D reconstructed images were created by the technologist. Radiation optimization: All CT scans at this facility use at least one of these dose optimization techniques: automated exposure control; mA and/or kV adjustment per patient size (includes targeted exams where dose is matched to clinical indication); or iterative reconstruction. Contrast material: VISI 320; Contrast volume: 95 ml; Contrast route: INTRAVENOUS (IV); COMPARISON: CT angio chest PE protcl [id number] 01/29/2020 4:23 PM RADIATION DOSE METRICS: Total DLP (mGy-cm): 2572.42 FINDINGS: Lungs: Bibasilar atelectasis versus minimal infiltrate. Aorta: No aortic aneurysm. No aortic dissection. Celiac trunk and mesenteric arteries: No occlusion or significant stenosis. Renal arteries: No occlusion or significant stenosis. Right iliac arteries: No occlusion or significant stenosis. Left iliac arteries: No occlusion or significant stenosis. Liver: No mass. Gallbladder and bile ducts: Unremarkable. No calcified stones. No ductal dilation. Pancreas: Unremarkable. No mass. No ductal dilation. Spleen: Unremarkable. No splenomegaly. Adrenal glands: Unremarkable. No mass. Kidneys and ureters: Left kidney lower pole nonobstructive calyceal stone. Stomach and bowel: Unremarkable. No obstruction. No mucosal thickening. Appendix: No evidence of appendicitis. Intraperitoneal space: Surgical clips in the upper abdomen. Lymph nodes: Unremarkable. No enlarged lymph nodes. Urinary bladder: Unremarkable. No mass. Reproductive: Unremarkable as visualized. Bones/joints: Surgical hardware in the spine. Soft tissues: Left inguinal hernia containing omentum without bowel. CT/CT angio chest abdomen pelvis IMPRESSION: 1. Abdominal aorta intact, negative for acute inflammatory process in the abdomen or pelvis. 2. Left kidney lower pole nonobstructive calyceal stone. 3. Left inguinal hernia containing omentum without bowel. 4. Surgical hardware in the spine. 5. Bibasilar atelectasis versus minimal infiltrate. 6. Surgical clips in the upper abdomen.
--- NOTE | 2022-03-02 17:37 | ECG_ITS ---
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 Measurements Intervals [place] Rate: 71 P: 18 NC: 134 QRS: 5 QRSD: 106 T: 37 QT: 442 QTc: 481 Interpretive Statements SINUS RHYTHM INCOMPLETE RIGHT BUNDLE BRANCH BLOCK [90+ ms QRS DURATION, TERMINAL R IN V1/V2, 40+ ms S IN I/aVL/V4/V5/V6] PROLONGED QT INTERVAL Compared to ECG 01/12/2022 15:30:10 Prolonged QT interval now present Sinus arrhythmia no longer present Electronically Signed On 03-03-2022 16:12:46 CDT by Hilary Ho M.D. [id number]
[2022-03-02 17:41] LABS: Alanine Aminotransferase 48 U/L (0-41); Albumin Level 4.2 g/dL (3.5-5.2); Alkaline Phosphatase 94 IU/L (40-130); Anion Gap 11.4 (5-19); Aspartate Amino Transferase 30 U/L (0-40); Blood Urea Nitrogen 33 mg/dL (8-23); Calcium 8.9 mg/dL (8.5-10.5); Chloride 81 mmol/L (98-107); Globulin 3.1 g/dL (1.3-4.6); Glomerular Filtration Rate 31.9 mL/min (90-130); Glucose 125 mg/dL (65-115); Lipase 103 U/L (13-60); Osmolality Calculated 285 mOsm/kg (285-295); Potassium 3.4 mmol/L (3.5-5.1); Sodium 133 mmol/L (136-145); Total Bilirubin 0.4 mg/dL (0.15-1.2); Total Protein 7.3 g/dL (6.6-8.7)
[2022-03-02 17:54] LABS: Lactate (Lactic Acid level) 2.3 mmol/L (0.5-2.2)
[2022-03-02 18:00] LABS: Carbon Dioxide 44 mmol/L (22-29)
[2022-03-02 18:04] LABS: Troponin(5th) Baseline 22 ng/L (0-15)
[2022-03-02 18:12] LABS: Free T4 Free Thyroxine 1.37 ng/dL (0.82-1.77); NT Pro B Type Natriuretic Pept 231 pg/mL (0-125); Thyroid Stimulating Hormone 2.11 uIU/mL (0.27-4.20)
[2022-03-02] MEDS: iodixanol 320 mg/mL 100mL Btl IV (18:14)
[2022-03-02 18:22] VITALS: BP 99/49; PULSE 73; RESP 72; O2SAT 99
--- NOTE | 2022-03-02 18:23 | PC.NURSE ---
continuous cardiac, BP, and SpO2 monitoring initiated upon arrival into room.
[2022-03-02] MEDS: sodium chloride 0.9% 1,000 ML 999 ML IV (18:49)
[2022-03-02] MEDS: sodium chloride 0.9% 500 ML IV (18:49)
[2022-03-02 19:05] LABS: Add Urine Microscopic? NO; Charge for UA Resulting for Rev
[2022-03-02 19:09] LABS: Bilirubin Urine Neg (Negative); Blood Urine Neg (Negative); Glucose Urine UA Norm (Normal); Ketones Urine Negative (Negative); Leukocyte Esterase Urine Negative (Negative); Nitrate Urine Negative (Negative); Protein Urine Neg (Negative); Urine Appearance Clear (CLEAR); Urine Color Yellow (Yellow); Urobilinogen Urine Norm (Negative); pH Urine 7 (5-7)
[2022-03-02 19:12] VITALS: BP 108/54; PULSE 75; RESP 22; O2SAT 100
--- NOTE | 2022-03-02 19:37 | ECG_ITS ---
[facility] Test Date: 2022-03-02 Pat Name: Sukumar Bangura Department: Room: Gender: Male Electrical Tryout Person: : 1955 Requested By: Mikie lAexander Order Number: [id number] Garcia MD: Hilary oH M.D. Measurements Intervals [place] Rate: 73 P: 60 MA: 154 QRS: -15 QRSD: 112 T: 23 QT: 344 QTc: 379 Interpretive Statements SINUS RHYTHM INCOMPLETE RIGHT BUNDLE BRANCH BLOCK [90+ ms QRS DURATION, TERMINAL R IN V1/V2, 40+ ms S IN I/aVL/V4/V5/V6] NONSPECIFIC T-WAVE ABNORMALITY Compared to ECG 03/02/2022 17:01:01 T-wave abnormality now present Prolonged QT interval no longer present Electronically Signed On 03-03-2022 16:22:21 CDT by Hilary Ho M.D. [id number]
--- NOTE | 2022-03-02 19:37 | PC.NURSE ---
Patient Norepinephrine Physician Mu states that he has discontinued patient's Norepinephrine infusion at the pump in the patient's room.
[2022-03-02 19:59] LABS: Troponin 5 2HR 15.23 ng/L (0-15)
[2022-03-02 20:03] LABS: Troponin 5 2HR Delta -6.77 ABS# (0-10)
--- NOTE | 2022-03-02 20:44 | PC.NURSE ---
Patient's Norepinephrine Infusion stopped Physician Mu stopped patient Norepinephrine at 2143 at bedside IV pump.
--- NOTE | 2022-03-02 21:40 | XRR_ITS ---
PROCEDURE INFORMATION: Exam: XR Chest Exam date and time: 03/02/2022 10:04 PM Age: 66 years old Clinical indication: Dyspnea; Additional info: Eval after failed central line placements TECHNIQUE: Imaging protocol: XR of the chest. Views: 1 view. COMPARISON: CR (CHEST, ) 01/12/2022 1:56 PM FINDINGS: Lungs: Hypoinflated lungs. No evident consolidation. Pleural spaces: No pleural effusion. No pneumothorax. Heart/Mediastinum: Similar cardiomegaly. Prominent epicardial fat pad similar to previous exam. Bones/joints: Scoliosis with Oconnor hetal noted throughout the visualized axial spine. Osseous structures are intact. XR/XR chest 1V portable [id number] IMPRESSION: No acute findings.
[2022-03-02 22:46] VITALS: PULSE 83; RESP 23; O2SAT 99
--- NOTE | 2022-03-02 22:55 | XRR_ITS ---
PROCEDURE INFORMATION: Exam: XR Chest Exam date and time: 03/02/2022 11:01 PM Age: 66 years old Clinical indication: Device placement; Picc; Prior surgery; Surgery date: 6+ months; Surgery type: Spine; Additional info: Picc placement TECHNIQUE: Imaging protocol: XR of the chest. Views: 1 view. COMPARISON: CR (CHEST, ) 03/02/2022 10:04 PM FINDINGS: Lungs: No interval change. Pleural spaces: No pleural effusion or pneumothorax. Heart/Mediastinum: Stable heart size. Vasculature: Interval placement of right PICC line which terminates in the distal SVC. Bones/joints: No interval change. XR/XR chest 1V portable [id number] IMPRESSION: Interval placement of right PICC line in expected positioning.
--- NOTE | 2022-03-02 23:23 | P.HP_ITS ---
Providers/Chief Complaint Primary Care Provider: Saji York Chief Complaint: Low B/P History of Present Illness Patient is a [age]-year-old male who presents with chief complaint of low blood pressure . He states that he checked his blood pressure at home and it was 80/36. The patient does take antihypertensives at home. He admits to onset of nausea, cough which is productive yellow sputum, lightheadedness and really no other symptoms. He denies fever, rigors, vomiting, wheeze, abdominal pain, diarrhea, myalgia, dysuria, chest pain, dyspnea, dizziness, diaphoresis, palpitations, sense of rapid heartbeat, sensation knee regular heartbeat. In the emergency department he required pressors. He presents for further evaluation Review of Systems General: Reports: 10 or more systems reviewed and unremarkable except in HPI and below Medications/Allergies Home Medications Medication Instructions Recorded Confirmed Last Taken Type albuterol sulfate 2.5 mg (3 mL) INHALATION Q4H PRN 03/09/21 01/12/22 01/12/22 Rx #90 ml calcium 1 tab PO DAILY@0800 04/24/21 01/12/22 01/12/22 History aspirin 81 mg tablet,delayed 81 mg PO DAILY #30 tab 06/02/21 02/12/22 01/12/22 Rx release potassium chloride 10 mEq 20 meq PO DAILY@0800 #180 cap 01/02/22 02/12/22 01/12/22 Rx capsule,extended release hydrocodone 5 mg-acetaminophen 325 1 tab PO Q6H 01/12/22 01/12/22 01/12/22 History mg tablet spironolactone 25 mg tablet 25 mg PO DAILY 01/12/22 02/12/22 01/12/22 History bumetanide 2 mg tablet 2 mg PO TID tab 02/12/22 02/12/22 Unknown History lisinopril 2.5 mg tablet 2.5 mg PO DAILY tab 02/12/22 02/12/22 Unknown History loratadine 10 mg tablet 10 mg PO DAILY 02/12/22 02/12/22 Unknown History metolazone 2.5 mg tablet 2.5 mg PO .alternate day #20 tab 02/12/22 02/12/22 Unknown Rx prochlorperazine maleate 5 mg 5 mg PO .every 6 hrs PRN tab 02/12/22 02/12/22 Unknown History tablet ranolazine 500 mg tablet,extended 500 mg PO BID 02/12/22 02/12/22 Unknown History release,12 hr trazodone 50 mg tablet 50 mg PO DAILY 02/12/22 02/12/22 Unknown History Allergies Allergy/AdvReac Type Severity Reaction Status Date / Time codeine Allergy ALGY-Rash Verified 03/02/22 16:51 PFSH Acute PFSH: Medical History Acquired arm deformity COPD (chronic obstructive pulmonary disease) Fixation hardware in spine GERD (gastroesophageal reflux disease) Hyperglycemia Kyphoscoliosis Obesity Scoliosis Tobacco chew use Surgical History H/O arthroscopy of shoulder History of appendectomy History of [place] fundoplication Hx of cholecystectomy Family History Father Cancer Social History Smoking and tobacco status: former smoker Quit status (tobacco): has quit using tobacco Year quit tobacco: 2010 Former quit date comment: 2ppd x 10 years Second hand smoke exposure: No Smoking risk assessment/counseling performed?: Yes Alcohol intake: never Lives independently: Yes Household members: spouse Housing: House Marital status: service: No Current occupational status: employed 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 Pets and animals: Yes History of recent travel: No Current gender identity: Male Vitals/I&O/Wt Last Vital Signs Temp 98.1 F 03/02/22 16:48 Pulse 83 03/02/22 22:46 Resp 23 H 03/02/22 22:46 BP 108/54 03/02/22 19:12 Pulse Ox 99 03/02/22 22:46 03/02/22 03/02/22 03/03/22 14:59 22:59 06:59 Intake Total 1062.547 / 1062.547 Balance 1062.547 / 1062.547 Weight last 48 hrs Weight 104.326 kg Physical Exam Narrative: General: -Alert -No acute distress -No dyspnea -No tachypnea Head: -Atraumatic -Normocephalic Eyes: -Pupils equally round and reactive to light and accommodation -Extraocular muscles intact Neurological: -Cranial nerves II-XII intact Neck: -No jugular venous distention -No thyromegaly -No cervical lymphadenopathy Heart: -Regular rate -Regular rhythm -No murmurs -No gallops -No rubs Lungs: -No wheeze -No rhonchi -No rales ? Abdomen: -Normal bowel sounds in all four quadrants -No rebound -No guarding -No tenderness Extremities: -2/4 pulse in all four extremities -No clubbing -No cyanosis -No edema -No calf tenderness present bilaterally -Negative Oleg?s sign bilaterally Musculoskeletal: -5/5 bilateral upper extremity strength -5/5 bilateral lower extremity strength -Sensorium of bilateral upper extremities are equal and intact -Sensorium of bilateral lower extremities are equal and intact ? Additional Details / Additional Findings / Exceptions / Miscellaneous: Data : 03/02/22 17:08 03/02/22 17:08 Micro: Microbiology 03/02/22 17:09 Blood Culture - Preliminary Blood SPECIMEN COLLECTED 03/02/22 17:08 Blood Culture - Preliminary Blood SPECIMEN COLLECTED A&P Assessment and plan (1) Acute kidney injury superimposed on chronic kidney disease: Status: Acute Plan Hypotension. Uncertain etiology at this time. Blood culture ?2 drawn the emergency department pending. This may be a case of dehydration as witnessed by patient's acute renal insufficiency along with continued use of antihypertensives. Patient will be admitted to ICU for closer observation. All imaging studies thus far have been unremarkable. IV normal saline 125 ML's per hour plus IV when necessary Levophed per protocol. BNP pending. Cortisol level pending. Echo Karg grams pending. Monitor patient on telemetry and checks her cardiac enzymes and recheck EKG on the morning of March 03, 2022 Hyponatremia. We will monitor sodium level intermittently. IV normal saline 100 x 5 ML's per hour Acute renal insufficiency. Will monitor creatinine intermittently. IV normal saline 125 ML's per hour Obstructive sleep apnea. CPAP/BiPAP: Okay to use home device and/or pressure when sleeping if the patient uses CPAP/BiPAP at home Angina No allergies Chronic pain Macrocytic anemia. We will monitor hemoglobin level intermittently. TSH, free T4 within normal limits. Check B12, folic acid, ferritin, iron panel, fecal occult blood COPD, O2 dependent at 4 L Documented history of CHF with undocumented ejection fraction with grade 1 diastolic dysfunction. Echo Karg grams pending History of hypertension Obesity. The patient becomes regarding lifestyle modification Elevated lipase. Patient provides no symptoms of pancreatitis and this is not demonstrated radiographically. Will monitor lipase levels intermittently Nephrolithiasis, asystematic DVT Proflex is. 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
--- NOTE | 2022-03-02 23:25 | PC.NURSE ---
PICC RIGHT arm ready for use. Primary nurse notified.
[2022-03-02 23:27] LABS: Cortisol Random 20.51 ug/dL (2.47-19.5)
--- NOTE | 2022-03-02 23:37 | ECG_ITS ---
[facility] Test Date: 2022-03-02 Pat Name: Sukumar Bangura Department: Room: Gender: Male Skiver Counter: : 1955 Requested By: Mikie Alexander Order Number: [id number] Garcia MD: Hilary Ho M.D. Measurements Intervals [place] Rate: 72 P: 54 NE: 146 QRS: -19 QRSD: 112 T: 22 QT: 419 QTc: 461 Interpretive Statements SINUS RHYTHM INCOMPLETE RIGHT BUNDLE BRANCH BLOCK [90+ ms QRS DURATION, TERMINAL R IN V1/V2, 40+ ms S IN I/aVL/V4/V5/V6] MINIMAL VOLTAGE CRITERIA FOR LVH, CONSIDER NORMAL VARIANT [MEETS CRITERIA IN ONE OF: R(aVL), S(V1), R(V5), R(V5/V6)+S(V1)] Compared to ECG 03/02/2022 19:09:54 T-wave abnormality no longer present Electronically Signed On 03-03-2022 16:20:48 CDT by Hilary Ho M.D. [id number]
[2022-03-03] VITALS (69 sets, daily range): BP systolic 82–140; BP diastolic 48–72; PULSE 62–110; RESP 14–29; TEMP 36.6–37.1; O2SAT 95–100
[2022-03-03 00:54] LABS: Base Excess VBG 15.6 mmol/L (-3.0-3.0); Blood Gas Operator Identificat JB; Blood Gas Sample Site Not specified; Blood Gas Sample Type Venous; HCO3 VBG 46.5 mmol/L (24-28); PO2 VBG 42.4 mmHg (25-40); Venous Blood Gas Hematocrit 50.4 % (42-52); pH VBG 7.36 (7.32-7.42)
[2022-03-03 00:55] LABS: Oxygen Device NC
[2022-03-03 00:56] LABS: PCO2 VBG 83.4 mmHg (41-51)
[2022-03-03] MEDS: sodium chloride 0.9% 1,000 ML 125 ML IV (01:09)
--- NOTE | 2022-03-03 01:18 | ECG_ITS ---
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 Measurements Intervals [place] Rate: 80 P: 21 MI: 154 QRS: -12 QRSD: 105 T: 23 QT: 305 QTc: 352 Interpretive Statements SINUS RHYTHM INCOMPLETE RIGHT BUNDLE BRANCH BLOCK [90+ ms QRS DURATION, TERMINAL R IN V1/V2, 40+ ms S IN I/aVL/V4/V5/V6] NONSPECIFIC T-WAVE ABNORMALITY Compared to ECG 03/02/2022 23:18:48 T-wave abnormality now present Electronically Signed On 03-03-2022 16:20:04 CDT by Hilary Ho M.D. [email or web address]/store/[id number]
[2022-03-03 01:19] LABS: Iron 76 ug/dL (59-158)
[2022-03-03 01:20] LABS: Troponin 5 6HR 15.02 ng/L (0-15)
[2022-03-03 01:32] LABS: Folate Level > 20.0 ng/mL (4.5-32.2)
[2022-03-03 01:38] LABS: Unsaturated Iron Binding 212 ug/dL (112-347)
[2022-03-03 01:51] LABS: Ferritin 780 ng/mL (30-400); Iron 76 ug/dL (59-158); NT Pro B Type Natriuretic Pept 106 pg/mL (0-125); Percent Saturation 26.3 % (20-50); Total Iron Binding Capacity 288 mcg/dl; Vitamin B12 661 pg/mL (232-1245)
--- NOTE | 2022-03-03 02:23 | USCV_ITS ---
Sukumar Bangura Age: 66 Gender: M : 1955 Exam Date: 03/03/2022 07:25 Ordering Phys: Edwin Norman DO Technologist: Robe Dorado Exam Location: [facility] – [place] Indication: sob BP: 122 / 52 HR: 83 Rhythm: Sinus Technical Quality: Adequate MEASUREMENTS (Male / Female) Normal Values 2D ECHO LV Diastolic Diameter PLAX 3.6 cm 4.2 - 5.9 / 3.9 - 5.3 cm LV Systolic Diameter PLAX 3.0 cm IVS Diastolic Thickness 1.1 cm 0.6 - 1.0 / 0.6 - 0.9 cm IVS Systolic Thickness 1.4 cm LVPW Diastolic Thickness 1.0 cm 0.6 - 1.0 / 0.6 - 0.9 cm LVPW Systolic Thickness 1.1 cm LVOT Diameter 2.0 cm LV Ejection Fraction 2D Teich 32.6 % LV Ejection Fraction MOD 2C 63.5 % LV Ejection Fraction 2C AL 64.5 % LA Diameter 2.7 cm Aorta at Sinotubular Diameter 2.9 cm M-MODE MV E Point Septal Separation 1.1 cm DOPPLER AV Peak Velocity 140.0 cm/s LVOT Peak Velocity 92.0 cm/s AV Area Cont Eq vti 2.3 cm squared AV Area Cont Eq pk 2.1 cm squared MV Area PHT 3.3 cm squared Mitral E to A Ratio 0.9 MV E' Velocity 28.5 cm/s Mitral E to MV E' Ratio 6.6 Mitral E to LV E' Lateral Ratio 7.0 Mitral E to LV E' Septal Ratio 6.4 TR Peak Velocity 146.3 cm/s TR Peak Gradient 8.6 mmHg TV Peak E Velocity 76.0 cm/s Right Atrial Pressure 3.0 mmHg Pulmonary Artery Systolic Pressu 11.6 mmHg PV Peak Velocity 118.0 cm/s FINDINGS Left Ventricle Normal left ventricular size, systolic function and wall thickness, with no regional wall motion abnormalities. Left ventricular ejection fraction is estimated at 65 %. Normal diastolic function. Right Ventricle Normal right ventricular size and systolic function. Right ventricular systolic pressure 11.6 mmHg. Right Atrium Right atrium not well visualized. Left Atrium Left atrium not well visualized. Normal left atrial size. Mitral Valve Structurally normal mitral valve. No mitral valve stenosis. No significant mitral valve regurgitation. Aortic Valve Structurally normal trileaflet aortic valve. No aortic valve stenosis. No aortic valve regurgitation. Tricuspid Valve Structurally normal tricuspid valve. No tricuspid valve stenosis. Trace to mild tricuspid valve regurgitation. Pulmonic Valve Pulmonic valve not well visualized. Pericardium No pericardial effusion. Aorta Normal size aortic root and proximal ascending aorta. CONCLUSIONS 1. This is a technically difficult study. Optison was used per protocol. 2. Normal left ventricular size, systolic function and wall thickness, with no regional wall motion abnormalities. Left ventricular ejection fraction is estimated at 65 %. Normal diastolic function. 3. Trace to mild tricuspid valve regurgitation. 4. Normal pulmonary artery pressure. 5. Direct comparison to previous study dated 01/29/20 is not possible due to technically difficult study. Hilary Ho MD (Electronically Signed) Final Date: 03 March 2022 17:14 S
[2022-03-03 03:58] LABS: Basophils % 0.3 %; Eosinophils # 0.1 10^3/uL (0.0-0.8); Eosinophils % 0.4 %; Hematocrit 33.3 % (42.0-52.0); Hemoglobin 10.5 g/dL (11.7-16.6); Lymphocytes # 2.4 10^3/uL (0.8-4.8); Lymphocytes % 15.7 %; Mean Corpuscular HGB Conc 31.5 g/dL (30.0-36.0); Mean Corpuscular Hemoglobin 31.6 pg (28.0-34.0); Mean Corpuscular Volume 100.3 fl (80-94); Monocytes # 1.5 10^3/uL (0.2-0.9); Monocytes % 9.9 %; Neutrophils # 11.14 10^3/uL (1.8-7.7); Neutrophils % 72.8 %; Nucleated Red Blood Cells % 0 %; Platelet Count 228 10^3/cmm (130-400); Red Blood Count 3.32 10^6/uL (4.1-5.3); Red Cell Distribution Width 13.3 % (12.1-15.1); White Blood Count 15.3 10^3/uL (4.0-10.0)
[2022-03-03 04:25] LABS: Alanine Aminotransferase 40 U/L (0-41); Albumin Level 3.7 g/dL (3.5-5.2); Alkaline Phosphatase 92 IU/L (40-130); Blood Urea Nitrogen 28 mg/dL (8-23); Calcium 8.4 mg/dL (8.5-10.5); Carbon Dioxide 38 mmol/L (22-29); Chloride 84 mmol/L (98-107); Globulin 2.7 g/dL (1.3-4.6); Glomerular Filtration Rate 38.1 mL/min (90-130); Glucose 305 mg/dL (65-115); Lipase 60 U/L (13-60); Osmolality Calculated 293 mOsm/kg (285-295); Sodium 133 mmol/L (136-145); Total Bilirubin 0.2 mg/dL (0.15-1.2); Total Protein 6.4 g/dL (6.6-8.7)
[2022-03-03 04:34] LABS: Anion Gap 14.5 (5-19); Aspartate Amino Transferase 29 U/L (0-40); Potassium 3.5 mmol/L (3.5-5.1)
--- NOTE | 2022-03-03 13:32 | PM.PN ---
Subjective Subjective: Patient was seen and examined this morning, currently he is alert awake oriented x3, denies any shortness of breath chest pain nausea vomiting, headache fever chills cough, has been afebrile overnight, currently he is requiring Levophed, he is also on normal saline 125 cc an hour. Blood cultures have been drawn in the ER. X-ray chest no infiltrates no effusion, Medications: Medication Review Details: Generic Name Dose Route Start Last Admin Trade Name Scottq PRN Reason Stop Dose Admin Sodium Chloride 1,000 mls @ 125 m ls/hr 03/03/22 00:10 03/03/22 01:09 Sodium Chloride 0.9% IV 125 mls/hr .Q8H ZIGGY Administration Norepinephrine Bit artrate 4 mg 254 mls @ 0 mls/h r 03/03/22 00:10 03/03/22 01:10 / Dextrose IV 9 mcg/min .Q0M ZIGGY 34.29 mls/hr Administration Protocol Per Protocol Vitals/I&O/Wt Last Vital Signs Temp 98.0 F 03/03/22 08:30 Pulse 100 03/03/22 12:30 Resp 17 03/03/22 12:30 BP 82/57 03/03/22 12:30 Pulse Ox 96 03/03/22 12:30 03/02/22 03/03/22 03/03/22 22:59 06:59 14:59 Intake Total 1062.547 / 1062.547 691.453 / 1754.000 240 / 240 Output Total 180 / 180 325 / 325 Balance 1062.547 / 1062.547 511.453 / 1574.000 -85 / -85 Weight last 48 hrs Weight 108.499 kg Weight 104.326 kg Physical Exam Const: COMMON NORMALS: patient oriented x3 HENMT: COMMON NORMALS: normocephalic and atraumatic HEAD & SCALP: normocephalic and atraumatic Resp: COMMON NORMALS: clear to auscultation bilaterally EFFORT & INSPECTION: Yes symmetric chest movement AUSCULTATION: clear to auscultation bilaterally Cardio: COMMON NORMALS: regular rate, regular rhythm, S1 normal heart sound present, S2 normal heart sound present, No gallops present (Cardio), No murmurs present (Cardio), No rub (Cardio) and Peripheral pulses 2+ throughout RATE: regular rate RHYTHM: regular rhythm HEART SOUNDS: S1 normal heart sound present and S2 normal heart sound present PERIPHERAL PULSES: Peripheral pulses 2+ throughout GI: COMMON NORMALS: Normal to inspection, nondistended, normoactive bowel sounds present, Soft to palpation, non-tender, No hepatosplenomegaly present and no masses AUSCULTATION: Yes normoactive bowel sounds PALPATION: Yes Soft to palpation and Yes No hepatosplenomegaly present RECTAL EXAM: Yes deferred Extremity: COMMON NORMALS: no clubbing, cyanosis or edema and no pedal edema Neuro: COMMON NORMALS: patient oriented x3 Data : 03/03/22 03:00 03/03/22 03:00 Micro: Microbiology 03/02/22 17:09 Blood Culture - Preliminary Blood SPECIMEN COLLECTED 03/02/22 17:08 Blood Culture - Preliminary Blood SPECIMEN COLLECTED A&P Assessment and plan (1) Shock: Status: Acute (2) Acute kidney injury superimposed on chronic kidney disease: Status: Acute (3) CELESTE (obstructive sleep apnea): Status: Acute (4) Chronic hypercapnic respiratory failure: Status: Acute (5) Restrictive lung disease due to kyphoscoliosis: Status: Acute (6) Congestive heart failure: Status: Acute Qualifiers: Heart failure chronicity: chronic Heart failure type: diastolic Qualified Code(s): I50.32 - Chronic diastolic (congestive) heart failure (7) COPD (chronic obstructive pulmonary disease): Status: Acute Plan 66-year-old male with past medical history of hypertension ,COPD/CELESTE,RLD due to kyphoscoliosis , HFpEF, was brought in with chief complaint of low blood pressure, likely secondary to hypovolemic shock secondary to overdiuresis, he is on Bumex, metolazone, spironolactone. Assessment: Hypovolemic shock secondary to overdiuresis, he is on Bumex, metolazone, spironolactone. He is also on lisinopril at home CT angio chest abdomen pelvis: No acute findings Follow blood culture Lactic acid 2.3 Procalcitonin: Patient has been receiving IV hydration Currently is also on Levophed MARINA on CKD stage III: Likely secondary to ATN from hypotension as well as lisinopril Baseline serum creatinine 0.7-08 Admission serum creatinine 2.1 Monitor BMP Continue IV hydration Monitor intake output charting Avoid nephrotoxic Random urine sodium Random urine creatinine #HFpEF: Currently compensated Continue to hold diuretics Monitoring output charting Daily weight K>4, MG>2 #History of obstructive/restrictive lung disease: Continue BiPAP #CODE STATUS: Full code #DVT prophylaxis: On heparin Attestations Medical Necessity Statement*: Patient needs to in hospital for management of hypovolemic shock.MARINA. Time Spent in Patient Care: Greater than 35 minutes (>than 50% of time spent in counselling and/or direct pt care on unit). Critical Care Time: The high probability of a clinically significant, sudden or life threatening deterioration of the patient's [] system(s) required my full and direct attention, intervention and personal management. The critical care time is as shown. This time is in addition to time spent performing any reported procedures but includes the following: [x] Data and vital sign review and interpretation [x] Patient assessment, examination and intervention [x] Documentation [x] Medication orders and management Critical Care Time (min): 30 Coding Level of Care Code Acute Slot Shift Manager for [facility] Fwd Exam Detailed Diagnoses Shock R57.9 Acute kidney injury superimposed on chronic kidney disease N17.9; N18.9 CELESTE (obstructive sleep apnea) G47.33 Chronic hypercapnic respiratory failure J96.12 Restrictive lung disease due to kyphoscoliosis J98.4; M41.9 Congestive heart failure I50.32 Heart failure chronicity: chronic Heart failure type: diastolic COPD (chronic obstructive pulmonary disease) J44.9
--- NOTE | 2022-03-03 17:00 | PC.NURSE ---
Uneventful shift. Pt transferred self to chair with no assist and levophed is titrated down to 2.
--- NOTE | 2022-03-03 21:14 | PC.NURSE ---
Spoke to Family Spoke with patient son Vishnu, answered all questions and addressed concerns about diet. Updated family about patient condition.
[2022-03-03] MEDS: trazodone 50 mg Tablet PO (21:22)
--- NOTE | 2022-03-03 22:14 | PC.NURSE ---
New Orders Received Reddened areas noted during bath, informed Dr. Norman. Received orders for Nystatin Powder to be applied to affected areas BID.
[2022-03-03] MEDS: nystatin powder 15 gm Btl 1 APPLIC TOPICAL (23:05)
[2022-03-04] VITALS (50 sets, daily range): BP systolic 75–134; BP diastolic 45–92; PULSE 67–114; RESP 14–26; TEMP 36.9; O2SAT 96–100
[2022-03-04] MEDS: sodium chloride 0.9% 1,000 ML 125 ML IV ×2 (01:28→14:50)
[2022-03-04 05:26] LABS: Basophils % 0.2 %; Eosinophils # 0.2 10^3/uL (0.0-0.8); Eosinophils % 1.9 %; Hematocrit 30.2 % (42.0-52.0); Hemoglobin 9.3 g/dL (11.7-16.6); Lymphocytes # 1.8 10^3/uL (0.8-4.8); Mean Corpuscular HGB Conc 30.8 g/dL (30.0-36.0); Mean Corpuscular Hemoglobin 31.3 pg (28.0-34.0); Mean Corpuscular Volume 101.7 fl (80-94); Mean Platelet Volume 9.5 fL (7.4-10.4); Monocytes # 1.3 10^3/uL (0.2-0.9); Monocytes % 14.2 %; Neutrophils # 5.95 10^3/uL (1.8-7.7); Neutrophils % 63.7 %; Nucleated Red Blood Cells % 0 %; Platelet Count 178 10^3/cmm (130-400); Red Blood Count 2.97 10^6/uL (4.1-5.3); Red Cell Distribution Width 13.3 % (12.1-15.1); White Blood Count 9.3 10^3/uL (4.0-10.0)
[2022-03-04 05:48] LABS: Blood Urea Nitrogen 18 mg/dL (8-23); Chloride 91 mmol/L (98-107); Glomerular Filtration Rate 60.8 mL/min (90-130); Glucose 154 mg/dL (65-115); Osmolality Calculated 291 mOsm/kg (285-295); Sodium 138 mmol/L (136-145)
[2022-03-04 05:55] LABS: Anion Gap 9.7 (5-19)
[2022-03-04 05:56] LABS: Carbon Dioxide 41 mmol/L (22-29); Potassium 3.7 mmol/L (3.5-5.1)
--- NOTE | 2022-03-04 06:56 | PC.NURSE ---
Shift Summary Patient had an uneventful shift-sat up in chair majority of evening. Remains on 4LNC, no wounds noted at this time. No reports of pain overnight. Patient received bed bath and full linen change.
[2022-03-04] MEDS: aspirin 81 mg EC Tablet PO (08:58)
[2022-03-04] MEDS: sennosides-docusate Tablet 1 TAB PO (08:58)
--- NOTE | 2022-03-04 09:57 | PC.CHAP ---
Pastoral Care Encounter/Spiritual Assessment Type of Contact [] Declined altitude chamber technician visit [] Patient/Family/Request visit [] Outpatient visit [] Follow-up visit [] Physician referral [] Code/Alert [x] Routine visit [] Staff referral [] Actively dying [] Patient sleeping [] Family support [] [] Out of room [] Palliative care [] [] Receiving care in room [] Pre-surgical visit [] Trauma [] Long length of stay [x] ICU visit [] Other: Relational/Emotional Strength [] Patient feels connected with others/family/visitors/staff [] Distress [] Loneliness/isolation [] Abandonment Spirituality of Patient [] Person of Adela [] Attends [facility] of their Adela [] Believes in Prayer [] Reads Bible or Sabianism materials [] There are Spiritual issues to be addressed Change Attendant Interventions [x] Prayer [] Active listening [] Non-anxious presence [] Spiritual/emotional support [] Crisis/trauma care [] Spiritual counseling [] Bereavement support [] Provided bereavement packet [] Provided Bible/devotional materials [] Provided toy/stuffed animal, coloring book to patient or family member [] Provided Communion [] Anointing/[place] [] Salvation [x] Completed spiritual assessment [] Other: Impact on Illness or Injury [] Angry [] Fearful [] Anxious [] Often cries [] Exhaustion [] Unable to work [] Unable to attend jainism [] Unable to walk/stand [] Unable to read [] Unable to drive [] Unable to eat/drink [] Unable to sleep [] Unable to be with family [] Patient intubated [] Other: Summary Time spent with patient
[2022-03-04] MEDS: pantoprazole DR 40 mg Tablet PO ×2 (11:08→17:29)
[2022-03-04 11:10] LABS: Iron 75 ug/dL (59-158); Percent Saturation 28.5 % (20-50); Total Iron Binding Capacity 263 mcg/dl; Unsaturated Iron Binding 188 ug/dL (112-347)
--- NOTE | 2022-03-04 17:54 | PM.PN ---
Subjective Subjective: Hospital course, labs appreciated. Examination patient sitting up in chair. Levophed turned off early in the morning today. Mean artery pressure of 65. Denies any nausea vomiting, headache, dizziness. No acute complaints. Denies any chest pain. Currently on 4 L saturating 99% Vitals/I&O/Wt Last Vital Signs Temp 98.3 F 03/03/22 20:00 Pulse 93 03/04/22 16:00 Resp 21 H 03/04/22 16:00 BP 130/68 03/04/22 16:00 Pulse Ox 99 03/04/22 16:00 03/04/22 03/04/22 03/04/22 06:59 14:59 22:59 Intake Total 1054 / 3148 1563.434 / 1563.434 Output Total 900 / 2575 Balance 154 / 573 1563.434 / 1563.434 Weight last 48 hrs Weight 108.499 kg Physical Exam Const: COMMON NORMALS: patient oriented x3 HENMT: COMMON NORMALS: normocephalic and atraumatic HEAD & SCALP: normocephalic and atraumatic Chest: CHEST: Yes Symmetrical chest wall rise Resp: COMMON NORMALS: clear to auscultation bilaterally EFFORT & INSPECTION: Yes symmetric chest movement AUSCULTATION: clear to auscultation bilaterally Cardio: COMMON NORMALS: regular rate, regular rhythm, S1 normal heart sound present, S2 normal heart sound present, No gallops present (Cardio), No murmurs present (Cardio), No rub (Cardio) and Peripheral pulses 2+ throughout RATE: regular rate RHYTHM: regular rhythm HEART SOUNDS: S1 normal heart sound present and S2 normal heart sound present PERIPHERAL PULSES: Peripheral pulses 2+ throughout GI: COMMON NORMALS: Normal to inspection, nondistended, normoactive bowel sounds present, Soft to palpation, non-tender, No hepatosplenomegaly present and no masses AUSCULTATION: Yes normoactive bowel sounds PALPATION: Yes Soft to palpation and Yes No hepatosplenomegaly present RECTAL EXAM: Yes deferred Extremity: COMMON NORMALS: no clubbing, cyanosis or edema and no pedal edema Neuro: COMMON NORMALS: patient oriented x3 Data : 03/04/22 05:02 03/04/22 05:02 Micro: Microbiology 03/02/22 17:09 Blood Culture - Preliminary Blood NEGATIVE TO DATE 03/02/22 17:08 Blood Culture - Preliminary Blood NEGATIVE TO DATE A&P Assessment and plan (1) Shock: Status: Acute (2) Acute kidney injury superimposed on chronic kidney disease: Status: Acute (3) CELESTE (obstructive sleep apnea): Status: Acute (4) Chronic hypercapnic respiratory failure: Status: Acute (5) Restrictive lung disease due to kyphoscoliosis: Status: Acute (6) Congestive heart failure: Status: Acute Qualifiers: Heart failure type: diastolic Heart failure chronicity: chronic Qualified Code(s): I50.32 - Chronic diastolic (congestive) heart failure (7) COPD (chronic obstructive pulmonary disease): Status: Acute Plan Shock: Hypovolemic shock secondary to overdiuresis, he is on Bumex, metolazone, spironolactone. Resolved. Keep mean artery pressure 65. Hold off on antihypertensives or diuretics for now. Patient patient seems euvolemic for now. Infectious cause less likely. Patient has remained afebrile, no leukocytosis, blood cultures so far negative. Does not have any localizing symptoms. TSH normal. Cortisol levels appreciated. MARINA on CKD stage III: Likely secondary to ATN from hypotension as well as lisinopril Baseline serum creatinine 0.7-0.8. Resolved. Medical concerns none for nephrotoxic drugs. CT abdomen pelvis results appreciated. Monitor urine output. #HFpEF: Currently compensated Continue to hold diuretics Monitoring output charting Daily weight K>4, MG>2 #History of obstructive/restrictive lung disease: Continue BiPAP Full code. DVT prophylaxis with heparin. Protonix OPD prophylaxis. If patient remains hemodynamically stable off pressors and plan to transfer to [facility]. Attestations Medical Necessity Statement*: Requires further hospitalization for management of hypovolemic shock secondary to overdiuresis Time Spent in Patient Care: Greater than 35 minutes Coding Level of Care Code Acute Manager Pharmaceutical for [facility] Fwd Diagnoses Shock R57.9 Acute kidney injury superimposed on chronic kidney disease N17.9; N18.9 CELESTE (obstructive sleep apnea) G47.33 Chronic hypercapnic respiratory failure J96.12 Restrictive lung disease due to kyphoscoliosis J98.4; M41.9 Congestive heart failure I50.32 Heart failure type: diastolic Heart failure chronicity: chronic COPD (chronic obstructive pulmonary disease) J44.9
--- NOTE | 2022-03-04 19:37 | PC.NURSE ---
Spoke to Family Spoke with patient sister Mary, answered all questions and updated about patient condition.
[2022-03-04] MEDS: atorvastatin 40 mg Tablet 20 MG PO (20:22)
[2022-03-04] MEDS: trazodone 50 mg Tablet PO (20:22)
[2022-03-05] VITALS (27 sets, daily range): BP systolic 96–134; BP diastolic 54–76; PULSE 66–101; RESP 0–24; TEMP 36.8–37.4; O2SAT 94–100
[2022-03-05 03:16] LABS: Basophils % 0.3 %; Eosinophils # 0.2 10^3/uL (0.0-0.8); Eosinophils % 2.4 %; Hematocrit 28.5 % (42.0-52.0); Hemoglobin 8.8 g/dL (11.7-16.6); Lymphocytes % 21.3 %; Mean Corpuscular HGB Conc 30.9 g/dL (30.0-36.0); Mean Corpuscular Hemoglobin 31.4 pg (28.0-34.0); Mean Corpuscular Volume 101.8 fl (80-94); Mean Platelet Volume 9.6 fL (7.4-10.4); Monocytes % 11.1 %; Neutrophils # 5.91 10^3/uL (1.8-7.7); Neutrophils % 63.4 %; Nucleated Red Blood Cells % 0 %; Platelet Count 176 10^3/cmm (130-400); Red Cell Distribution Width 13.2 % (12.1-15.1); White Blood Count 9.3 10^3/uL (4.0-10.0)
[2022-03-05 03:40] LABS: Alanine Aminotransferase 33 U/L (0-41); Albumin Level 3.4 g/dL (3.5-5.2); Alkaline Phosphatase 74 IU/L (40-130); Anion Gap 7.1 (5-19); Aspartate Amino Transferase 20 U/L (0-40); Blood Urea Nitrogen 18 mg/dL (8-23); Calcium 9.1 mg/dL (8.5-10.5); Chloride 94 mmol/L (98-107); Chol HDL Ratio 2.57 mg/dL (1.0-5.00); Cholesterol 144 mg/dL (0-200); Globulin 2.4 g/dL (1.3-4.6); Glomerular Filtration Rate 84.7 mL/min (90-130); Glucose 132 mg/dL (65-115); HDL Cholesterol 56 mg/dL (60-100); LDL Cholesterol Calculated 74 mg/dL (50-129); Osmolality Calculated 290 mOsm/kg (285-295); Potassium 4.1 mmol/L (3.5-5.1); Sodium 138 mmol/L (136-145); Total Bilirubin 0.2 mg/dL (0.15-1.2); Total Protein 5.8 g/dL (6.6-8.7); Triglycerides 71 mg/dL (0-150); VLDL Cholestrol Calculation 14 mg/dL (0-30)
[2022-03-05 03:53] LABS: Estmated Average Glucose 120; Hemoglobin A1C 5.8 % (4.0-6.0)
[2022-03-05 04:01] LABS: Carbon Dioxide 41 mmol/L (22-29)
--- NOTE | 2022-03-05 04:50 | PC.NURSE ---
Shift Summary Patient had an uneventful shift. Currently sitting up to chair wearing the BIPAP 35% FiO2, and is alert/oriented x4. Patient denies reports of pain overnight. Voided 320 mls of urine with urinal. NS is infusing please see MAR for infusion rate. No wounds skin issues noted at this time.
[2022-03-05] MEDS: sodium chloride 0.9% 1,000 ML 75 ML IV (05:26)
[2022-03-05] MEDS: pantoprazole DR 40 mg Tablet PO (08:55)
[2022-03-05] MEDS: sennosides-docusate Tablet 1 TAB PO (08:55)
[2022-03-05] MEDS: aspirin 81 mg EC Tablet PO (08:55)
--- NOTE | 2022-03-05 10:03 | P.DS_ITS ---
Discharge Providers Date of Admission: 03/03/22 00:10 Date of Discharge: March 05, 2022 Attending Provider at Admission: Edwin Norman DO Attending Provider at Discharge: Christiano Tucker MD Primary Care Provider: Saji York Diagnoses at Discharge Discharge Diagnosis (1) Shock: Status: Acute (2) Acute kidney injury superimposed on chronic kidney disease: Status: Acute (3) CELESTE (obstructive sleep apnea): Status: Acute (4) Chronic hypercapnic respiratory failure: Status: Acute (5) Restrictive lung disease due to kyphoscoliosis: Status: Acute (6) Congestive heart failure: Status: Acute Qualifiers: Heart failure type: diastolic Heart failure chronicity: chronic Qualified Code(s): I50.32 - Chronic diastolic (congestive) heart failure (7) COPD (chronic obstructive pulmonary disease): Status: Acute Reason for Visit Reason for Visit: Low B/P Brief History: History as per HPI: Patient is a [age]-year-old male who presents with chief complaint of low blood pressure .? He states that he checked his blood pressure at home and it was 80/36.? The patient does take antihypertensives at home.? He admits to onset of nausea, cough which is productive yellow sputum, lightheadedness and really no other symptoms.? He denies fever, rigors, vomiting, wheeze, abdominal pain, diarrhea, myalgia, dysuria, chest pain, dyspnea, dizziness, diaphoresis, palpitations, sense of rapid heartbeat, sensation knee regular heartbeat.? In the emergency department he required pressors. Hospital Course Hospital Course Patient was admitted to ICU for further evaluation and management of shock. On admission patient also had acute kidney injury. It is believed his cause of shock is most likely hypovolemia from multiple diuretics which he takes at home. There was no sign or source of infection. His blood cultures remain negative, he remained afebrile without leukocytosis. His diuretics were withheld and he was started on IV hydration. His blood pressures and kidney functions resolved with IV fluids. He has been off pressors for the last 24 to 36 hours. Patient is back to his baseline. Is been discharged in hemodynamically stable condition with advice to hold off on his lisinopril for next 1 week till he follows up with his primary care provider. He is asked to stop all his diuretics and instead restarted on acetazolamide every third day with advised to repeat BMP in 1 week with his PCP. Physical Exam Const: COMMON NORMALS: patient oriented x3 HENMT: COMMON NORMALS: normocephalic and atraumatic HEAD & SCALP: normocephalic and atraumatic Chest: CHEST: Yes Symmetrical chest wall rise Resp: COMMON NORMALS: clear to auscultation bilaterally EFFORT & INSPECTION: Yes symmetric chest movement AUSCULTATION: clear to auscultation bilaterally Cardio: COMMON NORMALS: regular rate, regular rhythm, S1 normal heart sound present, S2 normal heart sound present, No gallops present (Cardio), No murmurs present (Cardio), No rub (Cardio) and Peripheral pulses 2+ throughout RATE: regular rate RHYTHM: regular rhythm HEART SOUNDS: S1 normal heart sound present and S2 normal heart sound present PERIPHERAL PULSES: Peripheral pulses 2+ throughout GI: COMMON NORMALS: Normal to inspection, nondistended, normoactive bowel sounds present, Soft to palpation, non-tender, No hepatosplenomegaly present and no masses AUSCULTATION: Yes normoactive bowel sounds PALPATION: Yes Soft to palpation and Yes No hepatosplenomegaly present RECTAL EXAM: Yes deferred Extremity: COMMON NORMALS: no clubbing, cyanosis or edema and no pedal edema Neuro: COMMON NORMALS: patient oriented x3 Discharge Data Studies Completed and Pending Completed Studies During Hospitalization Category Date Time Status CTA chest abdomen pelvis [CT angio chest abdomen pelvis Cat Scan 03/02/22 17:36 Completed ] Urgent XR chest 1V portable [id number] Stat Exams 03/02/22 22:55 Completed XR chest 1V portable [id number] Urgent Exams 03/02/22 21:40 Completed CV. echo wo/w contrast [id number] Routine Ultrasound 03/03/22 02:23 Completed Pending at discharge Category Date Time Status Blood Culture Stat Lab 03/02/22 17:09 Results CBC Auto Diff [Complete Blood Count w/Auto] AM LABS Lab 03/06/22 04:00 Ordered Occult Blood Stool [Immunochemical Fecal OCB] Routine Lab 03/03/22 00:10 Uncollected Radiology Impressions Chest/Abdomen/Pelvis CTA 03/02/22 17:36 IMPRESSION: 1. Abdominal aorta intact, negative for acute inflammatory process in the abdomen or pelvis. 2. Left kidney lower pole nonobstructive calyceal stone. 3. Left inguinal hernia containing omentum without bowel. 4. Surgical hardware in the spine. 5. Bibasilar atelectasis versus minimal infiltrate. 6. Surgical clips in the upper abdomen. Chest X-Ray 03/02/22 22:55 IMPRESSION: Interval placement of right PICC line in expected positioning. Microbiology 03/02/22 17:09 Blood Blood Culture - Preliminary NEGATIVE TO DATE 03/02/22 17:08 Blood Blood Culture - Preliminary NEGATIVE TO DATE Echocardiogram: CONCLUSIONS ?1.? This is a technically difficult study.? Optison was used per?protocol. ?2.? Normal left ventricular size, systolic function and wall?thickness, with no regional wall motion abnormalities. Left?ventricular ejection fraction is estimated at 65 %. Normal?diastolic function. ?3. Trace to mild tricuspid valve regurgitation. ?4. Normal pulmonary artery pressure. ?5. Direct comparison to previous study dated 01/29/20 is not?possible due to technically difficult study. ?Hilary Ho MD ?(Electronically Signed) ?Final Date:? ? ? 03 March 2022 ? 17:14 Laboratory Results WBC 9.3 10^3/uL (4.0-10.0) 03/05/22 02:48 RBC 2.80 10^6/uL (4.1-5.3) L 03/05/22 02:48 Hgb 8.8 g/dL (11.7-16.6) L 03/05/22 02:48 Hct 28.5 % (42.0-52.0) L 03/05/22 02:48 MCV 101.8 fl (80-94) H 03/05/22 02:48 MCH 31.4 pg (28.0-34.0) 03/05/22 02:48 MCHC 30.9 g/dL (30.0-36.0) 03/05/22 02:48 RDW 13.2 % (12.1-15.1) 03/05/22 02:48 Plt Count 176 10^3/cmm (130-400) 03/05/22 02:48 MPV 9.6 fL (7.4-10.4) 03/05/22 02:48 Neut % (Auto) 63.4 % 03/05/22 02:48 Lymph % (Auto) 21.3 % 03/05/22 02:48 Placer % (Auto) 11.1 % 03/05/22 02:48 Eos % (Auto) 2.4 % 03/05/22 02:48 Baso % (Auto) 0.3 % 03/05/22 02:48 Neut # (Auto) 5.91 10^3/uL (1.8-7.7) 03/05/22 02:48 Lymph # (Auto) 2.0 10^3/uL (0.8-4.8) 03/05/22 02:48 Placer # (Auto) 1.0 10^3/uL (0.2-0.9) H 03/05/22 02:48 Eos # (Auto) 0.2 10^3/uL (0.0-0.8) 03/05/22 02:48 Baso # (Auto) 0.0 10^3/uL (0.0-0.1) 03/05/22 02:48 Nucleated RBC % (auto) 0 % 03/05/22 02:48 Nucleated RBCs # 0.0 /100WBC 03/05/22 02:48 Specimen Type Venous 03/03/22 00:30 Sample Site Not specified 03/03/22 00:30 Humberto Test N/a 03/03/22 00:30 VBG pH 7.36 (7.32-7.42) 03/03/22 00:30 VBG pCO2 83.4 mmHg (41-51) H* 03/03/22 00:30 VBG pO2 42.4 mmHg (25-40) H 03/03/22 00:30 VBG HCO3 46.5 mmol/L (24-28) H 03/03/22 00:30 VBG Base Excess 15.6 mmol/L (-3.0-3.0) H 03/03/22 00:30 VBG Hematocrit 50.4 % (42-52) 03/03/22 00:30 O2 Delivery Device Nc 03/03/22 00:30 O2 Liters/Min 2.0 % 03/03/22 00:30 Food Prep Worker ID Emir 03/03/22 00:30 Sodium 138 mmol/L (136-145) 03/05/22 02:48 Potassium 4.1 mmol/L (3.5-5.1) 03/05/22 02:48 Chloride 94 mmol/L (98-107) L 03/05/22 02:48 Carbon Dioxide 41 mmol/L (22-29) H 03/05/22 02:48 Anion Gap 7.1 (5-19) 03/05/22 02:48 BUN 18 mg/dL (8-23) 03/05/22 02:48 Creatinine 0.9 mg/dL (0.7-1.2) 03/05/22 02:48 GFR Calculation 84.7 mL/min (90-130) L 03/05/22 02:48 Glucose 132 mg/dL (65-115) H 03/05/22 02:48 POC Glucose 128 mg/dL (70-110) H 03/02/22 16:56 Estimat Average Glucose 120 03/05/22 02:48 Hemoglobin A1c 5.8 % (4.0-6.0) 03/05/22 02:48 Calculated Osmolality 290 mOsm/kg (285-295) 03/05/22 02:48 Lactate 2.3 mmol/L (0.5-2.2) H 03/02/22 17:08 Calcium 9.1 mg/dL (8.5-10.5) 03/05/22 02:48 Iron 75 ug/dL (59-158) 03/04/22 05:02 TIBC 263 mcg/dl 03/04/22 05:02 % Saturation 28.5 % (20-50) 03/04/22 05:02 Unsat Iron Binding 188 ug/dL (112-347) 03/04/22 05:02 Ferritin 780 ng/mL (30-400) H 03/03/22 00:30 Total Bilirubin 0.2 mg/dL (0.15-1.2) 03/05/22 02:48 AST 20 U/L (0-40) 03/05/22 02:48 ALT 33 U/L (0-41) 03/05/22 02:48 Alkaline Phosphatase 74 IU/L (40-130) 03/05/22 02:48 Troponin T Baseline 22 ng/L (0-15) H 03/02/22 17:08 Troponin T 120 Minute 15.23 ng/L (0-15) H 03/02/22 19:30 Delta Troponin T -6.77 ABS# (0-10) L 03/02/22 19:30 Troponin T Hi Sens 6Hr 15.02 ng/L (0-15) H 03/02/22 00:30 Troponin T Hi Sens 6Hr Delta Not Reportable 03/02/22 00:30 NT-Pro-B Natriuret Pep 106 pg/mL (0-125) 03/03/22 00:30 Total Protein 5.8 g/dL (6.6-8.7) L 03/05/22 02:48 Albumin 3.4 g/dL (3.5-5.2) L 03/05/22 02:48 Globulin 2.4 g/dL (1.3-4.6) 03/05/22 02:48 Triglycerides 71 mg/dL (0-150) 03/05/22 02:48 Triglycerides Cancelled 03/05/22 02:48 Cholesterol 144 mg/dL (0-200) 03/05/22 02:48 Cholesterol Cancelled 03/05/22 02:48 LDL Cholesterol, Calc 74 mg/dL (50-129) 03/05/22 02:48 LDL Cholesterol, Calc Cancelled 03/05/22 02:48 Total VLDL Cholesterol 14 mg/dL (0-30) 03/05/22 02:48 Total VLDL Cholesterol Cancelled 03/05/22 02:48 HDL Cholesterol 56 mg/dL (60-100) L 03/05/22 02:48 HDL Cholesterol Cancelled 03/05/22 02:48 Cholesterol/HDL Ratio 2.57 mg/dL (1.0-5.00) 03/05/22 02:48 Cholesterol/HDL Ratio Cancelled 03/05/22 02:48 Lipase 60 U/L (13-60) 03/03/22 03:00 Vitamin B12 661 pg/mL (232-1245) 03/03/22 00:30 Folate > 20.0 ng/mL (4.5-32.2) 03/03/22 00:30 TSH 2.11 uIU/mL (0.27-4.20) 03/02/22 17:08 Free T4 1.37 ng/dL (0.82-1.77) 03/02/22 17:08 Random Cortisol 20.51 ug/dL (2.47-19.5) H 03/02/22 17:08 Urine Color Yellow (Yellow) 03/02/22 18:48 Urine Appearance Clear (CLEAR) 03/02/22 18:48 Urine pH 7 (5-7) 03/02/22 18:48 Ur Specific [place] 1.010 (1.005-1.030) 03/02/22 18:48 Urine Protein Neg (Negative) 03/02/22 18:48 Urine Glucose (UA) Norm (Normal) 03/02/22 18:48 Urine Ketones Negative (Negative) 03/02/22 18:48 Urine Blood Neg (Negative) 03/02/22 18:48 Urine Nitrate Negative (Negative) 03/02/22 18:48 Urine Bilirubin Neg (Negative) 03/02/22 18:48 Urine Urobilinogen Norm mg/dL (Negative) 03/02/22 18:48 Ur Leukocyte Esterase Negative (Negative) 03/02/22 18:48 Vitals Last Vital Signs Temp 98.8 F 03/05/22 07:30 Pulse 66 03/05/22 09:39 Resp 16 03/05/22 09:00 BP 107/62 03/05/22 09:00 Pulse Ox 98 03/05/22 09:39 Discharge Plan Discharge Patient Disposition: Home Condition: Stable Prescriptions: New atorvastatin 40 mg Tablet 20 mg PO BEDTIME Qty: 30 0RF acetazolamide 125 mg tablet 125 mg PO Q72H Qty: 20 0RF Continued prochlorperazine maleate 5 mg tablet 5 mg PO Q6H PRN (Reason: Nausea) 0RF loratadine 10 mg tablet 10 mg PO DAILY 0RF trazodone 50 mg tablet 50 mg PO BEDTIME 0RF ranolazine 500 mg tablet extended release 12 hr 500 mg PO BID 0RF calcium 1 tab PO DAILY@0800 0RF albuterol sulfate 2.5 mg /3 mL (0.083 %) solution for nebulization 2.5 mg inhalation Q4H PRN (Reason: shortness of breath or wheezing) Qty: 90 0RF aspirin 81 mg tablet,delayed release (DR/EC) 81 mg PO DAILY Qty: 30 0RF hydrocodone-acetaminophen 5-325 mg tablet 1 tab PO Q6H PRN (Reason: Pain) 0RF Discontinued metolazone 2.5 mg tablet 2.5 mg PO .alternate day Qty: 20 0RF potassium chloride 10 mEq capsule, extended release 20 meq PO DAILY@0800 Qty: 180 3RF spironolactone 25 mg tablet 25 mg PO DAILY 0RF lisinopril 2.5 mg tablet 2.5 mg PO DAILY 0RF bumetanide 2 mg tablet 2 mg PO TID 0RF Discharge Orders: Discharge Order (Routine); Ordered 03/05/22 Ordered By: Christiano Tucker Referrals: Saji York [Primary Care Provider] - 7-10 days Discharge Diet: Usual diet Discharge Activity: Resume usual activity and Increase activity as tolerated Patient Instructions: Opioid Safety Activity Restrictions/Additional Instructions: Please check your blood pressures daily and maintain a blood pressure diary. Do not take lisinopril, your water pills including metolazone, Bumex, spironolactone. Instead take acetazolamide 125 mg every 3 days. Please follow-up with a primary care provider in the next 1 week for repeat BMP and adjustment of blood pressure medicine/antihypertensive depending on the blood pressure charting. Discharge Attestations Time Spent in Discharge Care*: greater than 30 min Specific Discharge Activities: educating patient, educating and/or supporting family/caregiver, discussing with adult protective caseworker/social workers/dc planners, documenting/other paperwork and evaluating patient/reviewing data Status at Discharge: Cognitive status at discharge: cognitively intact , Behavioral status at discharge: cooperative , Functional status at discharge: other assisted ambulation , Overall status at discharge: patient is back to baseline Quality Metrics Clinical Quality Measures [ No reported AMI, CVA or VTE this stay] Coding Level of Care Code Acute Chg FW DC note Diagnoses Shock R57.9 Acute kidney injury superimposed on chronic kidney disease N17.9; N18.9 CELESTE (obstructive sleep apnea) G47.33 Chronic hypercapnic respiratory failure J96.12 Restrictive lung disease due to kyphoscoliosis J98.4; M41.9 Congestive heart failure I50.32 Heart failure type: diastolic Heart failure chronicity: chronic COPD (chronic obstructive pulmonary disease) J44.9
--- NOTE | 2022-03-05 13:05 | PC.NURSE ---
1254- Patient belongings with family member at bedside. Patent discharge education provided to patient and family at bedside. Questions answered and no further questions. Written education also provided. Patient brought by wheelchair to personal vehicle with family member.
== END 2022-03-05 12:54 | disposition home or self-care (01) | DRG 682 ==
LOC: ER 22:27 → ICU 03-03 00:17
PROVIDERS: Internal Medicine; Admitting Provider Internal Medicine; Emergency Provider Emergency Medicine; PCP Family Medicine; Visit Provider Student in an Organized Health Care Education/Training Program
DX: N17.0 Acute kidney failure with tubular necrosis (principal); R57.1 Hypovolemic shock; I13.0 Hypertensive heart and chronic kidney disease with heart failure and stage 1 through stage 4 chronic kidney disease, or unspecified chronic kidney disease; I50.32 Chronic diastolic (congestive) heart failure; Z68.42 Body mass index [BMI] 45.0-49.9, adult; E87.1 Hypo-osmolality and hyponatremia; J96.12 Chronic respiratory failure with hypercapnia; I95.9 Hypotension, unspecified; N18.30 Chronic kidney disease, stage 3 unspecified; J44.9 Chronic obstructive pulmonary disease, unspecified; E66.9 Obesity, unspecified; F17.210 Nicotine dependence, cigarettes, uncomplicated; G47.33 Obstructive sleep apnea (adult) (pediatric); Z99.89 Dependence on other enabling machines and devices; G89.29 Other chronic pain; D53.9 Nutritional anemia, unspecified; M41.9 Scoliosis, unspecified; Z79.891 Long term (current) use of opiate analgesic; Z79.82 Long term (current) use of aspirin; Z79.51 Long term (current) use of inhaled steroids
CPT/HCPCS: 36415; 36416; 36592; 71045; 71275; 74174; 80048; 80053; 80061; 81003; 82533; 82607; 82728; 82746; 82803; 82962; 83036; 83540; 83550; 83605; 83690; 83880; 84439; 84443; 84484; 85025; 87040; 93005; 94660; 96365; 96366; 99285; C1751; C8929; J7030; J7040; Q9956; Q9967

== ENCOUNTER → 2022-03-21 11:26 | Outpatient (BNVA) | payer MEDICARE, MEDICAID, SELFPAY | PROVIDERS: PCP Family Medicine; Visit Provider Internal Medicine Pulmonary Disease | DX: J44.9 Chronic obstructive pulmonary disease, unspecified (principal); J96.12 Chronic respiratory failure with hypercapnia; J98.4 Other disorders of lung; M41.9 Scoliosis, unspecified; I50.32 Chronic diastolic (congestive) heart failure; Z87.891 Personal history of nicotine dependence; K21.9 Gastro-esophageal reflux disease without esophagitis | CPT/HCPCS: 99214 ==

== ENCOUNTER 2022-04-08 13:15 | Emergency (ER) | payer MEDICARE, MEDICAID, SELFPAY ==
[2022-04-08 13:40] VITALS: BP 112/63; PULSE 79; RESP 21; TEMP 36.8; O2SAT 95; BMI 46.6
--- NOTE | 2022-04-08 13:47 | ECG_ITS ---
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 Measurements Intervals [place] Rate: 73 P: 56 [place]: 130 QRS: 48 QRSD: 114 T: 34 QT: 378 QTc: 419 Interpretive Statements SINUS RHYTHM INCOMPLETE RIGHT BUNDLE BRANCH BLOCK [90+ ms QRS DURATION, TERMINAL R IN V1/V2, 40+ ms S IN I/aVL/V4/V5/V6] Compared to ECG 03/03/2022 00:46:08 T-wave abnormality no longer present Electronically Signed On 04-08-2022 17:23:34 CDT by Darryl Guerra M.D. [email or web address]
--- NOTE | 2022-04-08 13:47 | XR_ITS ---
WS: [id number] Exam: XR chest 1V portable [id number] Date/Time of Exam: 04/08/2022 1:50 PM Reason For Exam: dyspnea Comparison 03/02/2022. The lungs are fully expanded and clear. The heart is upper limits normal size. There is angular scoli osis of the thoracic spine with right convexity. A single Oconnor hetal is noted in the thoracic spi ne. Bony structures are intact as visualized. No change since previous study. XR/XR chest 1V portable [id number] IMPRESSION: 1. No acute cardiopulmonary process identified.
--- NOTE | 2022-04-08 14:14 | ED_ITS ---
HPI - General Adult General: Chief complaint: General Medical Stated complaint: blisters on legs Time Seen by Provider: 04/08/22 13:46 History of Present Illness: Patient is a 66-year-old male with a history of COPD, CHF on 4 L of oxygen at baseline presenting to the emergency room with worsening leg swelling for the last 2 weeks. Patient was recently admitted to hospital on 02/1622 for hypotension. Since his discharge from the hospital, patient followed up with his inspector packer in [place] most recently, patient is currently on Bumex 2 mg Friday and Friday, spironolactone 25 mg daily (with additional 25mg MWF), and rantozaline for his CHF history. Patient reports that over the last 2 weeks, he noticed that his legs are increasingly more swollen and he now requires more elevation to sleep at night. Patient denies any respiratory distress or increased work of breathing. Patient says that he has been compliant with his medicine and they have been helping him with the symptoms. Patient is wanting cardiology in the next 2 weeks. Denies any cough runny nose sore throat, fever or chills, abdominal complaints or complaints at this time. Onset:acutely 2 weeks ago Duration:2 weeks Location:home Severity:moderate Associated symptoms: Deny chest pain, dyspnea, nausea, rash, palpitations or vomiting Review of Systems Const: Denies: fever(s) or chills Eyes: Denies: change in vision ENMT: Denies: mouth pain Card: Denies: chest pain or palpitations Resp: Denies: dyspnea or non-productive cough GI: Denies: abdominal pain, nausea, vomiting or diarrhea : Denies: dysuria Musc: Reports: other (+leg swelling b/l); Denies: extremity pain Skin/Breast: Denies: rash or new lesions Neuro: Denies: weakness in extremities Psych: Reports: other (Normal mood) Chaitanya/Lymph: Denies: easy bruising PFSH ED PFSH: Medical History Acquired arm deformity Chronic hypercapnic respiratory failure Congestive heart failure COPD (chronic obstructive pulmonary disease) Fixation hardware in spine GERD (gastroesophageal reflux disease) Hyperglycemia Kyphoscoliosis Obesity CELESTE (obstructive sleep apnea) Restrictive lung disease due to kyphoscoliosis Scoliosis Tobacco chew use Surgical History H/O arthroscopy of shoulder History of appendectomy History of [place] fundoplication Hx of cholecystectomy Family History Father Cancer Social History Smoking and tobacco status: former smoker Quit status (tobacco): has quit using tobacco Year quit tobacco: 2010 Former quit date comment: 2ppd x 10 years Second hand smoke exposure: No Smoking risk assessment/counseling performed?: Yes Alcohol intake: never Lives independently: Yes Household members: spouse Housing: House Marital status: service: No Current occupational status: employed 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 Pets and animals: Yes History of recent travel: No Current gender identity: Male Physical Exam Const: COMMON NORMALS: alert HENMT: COMMON NORMALS: atraumatic HEAD & SCALP: atraumatic MOUTH: moist mucous membranes not abnormal Eye: COMMON NORMALS: EOMs intact bilaterally and conjunctivae normal CONJUNCTIVA: Yes conjunctivae normal Neck/C-Spine: COMMON NORMALS: full ROM and supple Resp: COMMON NORMALS: normal respiratory effort OTHER: +lungs clear b/l Cardio: COMMON NORMALS: regular rate RATE: regular rate GI: COMMON NORMALS: Soft to palpation and non-tender PALPATION: Yes Soft to palpation Extremity: COMMON NORMALS: full ROM OTHER: 2+ lower extremity swelling b/l Neuro: SENSORIUM/ORIENTATION: Yes alert MOTOR EXAM: No Abnormal motor strength present and Other motor observations present (no focal motor deficits) Psych: COMMON NORMALS: speech normal SPEECH: Yes normal speech MOOD & AFFECT: Yes euthymic mood Course Vital Signs: Vital signs: Vital Signs Temperature 98.2 F 04/08/22 13:40 Pulse Rate 89 04/08/22 14:59 Respiratory Rate 18 04/08/22 14:59 Blood Pressure 113/67 04/08/22 14:59 Pulse Oximetry 96 04/08/22 14:59 MDM - General Adult Medical Decision Making 66-year-old male history of CHF, COPD on 4 L of oxygen at baseline presenting to the emergency room increased lower extremity swelling and dyspnea. Patient has coarse breath sounds bilaterally. Patient appears to be satting at 95% on 4 L of oxygen base similar to baseline. 2+ lower extremity edema noted. BNP is noted to be mildly elevated today. Cr within normal limit. Patient received 80 mg of Lasix in the ED. At 4:28pm, I have offered patient admission today however patient declined. Patient tells me that he has an appointment upcoming with his inspector packer in the next 2 weeks. I explained to patient the lower extremity swelling may get worse and that patient may need to go up on his Bumex. Instructed patient to takes his Bumex 3 times weekly instead of 2 times a week that is currently doing. Patient also reassures me that he will follow- up with his primary care provider to readjust his medicine. Patient tells me that he does not want to stay in the hospital today. Patient is AAO x4, has capacity, and patient elects to go home. Explained the risk of leaving today which includes respiratory distress and possible the patient verbalized understanding desires to go home at this time. Disposition: Discharge. Patient counseled regarding diagnostic impression, treatment plan. Patient given ED strict return precautions to return for continuation, worsening, or development of new symptoms. Instructed to f/u w/ PCP and Cardiology regarding symptoms today. Patient verbalized understanding. Lab Data : 04/08/22 14:17 04/08/22 14:45 Radiology Impressions Chest X-Ray 04/08/22 13:47 IMPRESSION: 1. No acute cardiopulmonary process identified. Laboratory Results WBC 11.6 10^3/uL (4.0-10.0) H 04/08/22 14:17 RBC 4.08 10^6/uL (4.1-5.3) L 04/08/22 14:17 Hgb 12.8 g/dL (11.7-16.6) 04/08/22 14:17 Hct 44.3 % (42.0-52.0) 04/08/22 14:17 MCV 108.6 fl (80-94) H 04/08/22 14:17 MCH 31.4 pg (28.0-34.0) 04/08/22 14:17 MCHC 28.9 g/dL (30.0-36.0) L 04/08/22 14:17 RDW 13.5 % (12.1-15.1) 04/08/22 14:17 Plt Count 243 10^3/cmm (130-400) 04/08/22 14:17 MPV 9.8 fL (7.4-10.4) 04/08/22 14:17 Neut % (Auto) 79.2 % 04/08/22 14:17 Lymph % (Auto) 11.5 % 04/08/22 14:17 [place] % (Auto) 7.5 % 04/08/22 14:17 Eos % (Auto) 0.0 % 04/08/22 14:17 Baso % (Auto) 0.2 % 04/08/22 14:17 Neut # (Auto) 9.15 10^3/uL (1.8-7.7) H 04/08/22 14:17 Lymph # (Auto) 1.3 10^3/uL (0.8-4.8) 04/08/22 14:17 [place] # (Auto) 0.9 10^3/uL (0.2-0.9) 04/08/22 14:17 Eos # (Auto) 0.0 10^3/uL (0.0-0.8) 04/08/22 14:17 Baso # (Auto) 0.0 10^3/uL (0.0-0.1) 04/08/22 14:17 Nucleated RBC % (auto) 0 % 04/08/22 14:17 Nucleated RBCs # 0.0 /100WBC 04/08/22 14:17 Sodium 140 mmol/L (136-145) 04/08/22 14:45 Potassium 4.7 mmol/L (3.5-5.1) 04/08/22 14:45 Chloride 96 mmol/L (98-107) L 04/08/22 14:45 Carbon Dioxide 39 mmol/L (22-29) H 04/08/22 14:45 Anion Gap 9.7 (5-19) 04/08/22 14:45 BUN 19 mg/dL (8-23) 04/08/22 14:45 Creatinine 0.8 mg/dL (0.7-1.2) 04/08/22 14:45 GFR Calculation 97.0 mL/min (90-130) 04/08/22 14:45 Glucose 191 mg/dL (65-115) H 04/08/22 14:45 Calculated Osmolality 297 mOsm/kg (285-295) H 04/08/22 14:45 Calcium 9.0 mg/dL (8.5-10.5) 04/08/22 14:45 Total Bilirubin 0.2 mg/dL (0.15-1.2) 04/08/22 14:45 AST 16 U/L (0-40) 04/08/22 14:45 ALT 35 U/L (0-41) 04/08/22 14:45 Alkaline Phosphatase 76 IU/L (40-130) 04/08/22 14:45 Troponin T Baseline 10 ng/L (0-15) 04/08/22 14:45 NT-Pro-B Natriuret Pep 366 pg/mL (0-125) H 04/08/22 14:45 Total Protein 6.6 g/dL (6.6-8.7) 04/08/22 14:45 Albumin 3.7 g/dL (3.5-5.2) 04/08/22 14:45 Globulin 2.9 g/dL (1.3-4.6) 04/08/22 14:45 Lipase 21 U/L (13-60) 04/08/22 14:45 Imaging Data Other Imaging: Radiologist's impression: [employer] [address] XRay Report Signed Patient: Sukumar Bangura Unit #: [id number] : 1955 Age/Sex: 66 / M ADM Date: 04/08/22 Loc: ER Room/Bed: Attending Dr: Ordering Provider/Ordering MD: Mikie Alexander MD Date of Service: 04/08/22 Procedure(s): XR chest 1V portable [id number] Accession Number(s): [id number] Report Number: [id number] WS: [id number] Exam: XR chest 1V portable [id number] Date/Time of Exam: 04/08/2022 1:50 PM Reason For Exam: dyspnea Comparison 03/02/2022. The lungs are fully expanded and clear. The heart is upper limits normal size. There is angular scoliosis of the thoracic spine with right convexity. A single Oconnor hetal is noted in the thoracic spine. Bony structures are intact as visualized. No change since previous study. XR/XR chest 1V portable [id number] IMPRESSION: 1. No acute cardiopulmonary process identified. ? Dictated By: Chago Nevarez DO Signed By: Chago Nevarez DO Signed Date/Time: 04/08/22 142 DD/ 23 Discharge Plan Discharge Patient Disposition: Home Clinical Impression: Swelling of lower leg Condition: Stable Prescriptions: No Action prochlorperazine maleate 5 mg tablet 5 mg PO Q6H PRN (Reason: Nausea) 0RF loratadine 10 mg tablet 10 mg PO DAILY 0RF trazodone 50 mg tablet 50 mg PO BEDTIME 0RF ranolazine 500 mg tablet extended release 12 hr 500 mg PO BID 0RF magnesium 250 mg tablet See Rx Instructions PO DAILY 0RF Rx Instructions: 1 tab 2 days weekly with potassium potassium chloride 10 mEq capsule, extended release See Rx Instructions PO DAILY 0RF Rx Instructions: take 1 tab friday and friday with Bumex bumetanide 2 mg tablet See Rx Instructions .ROUTE .COMPLEX 0RF Rx Instructions: 2 mg orally bid; 2 days weekly friday and friday spironolactone 25 mg tablet See Rx Instructions .ROUTE .COMPLEX 0RF Rx Instructions: 25 mg orally bid FRI,FRI,FRI AND 25mg daily FRIDAY, AND FRIDAY fluticasone propionate [Flonase Allergy Relief] 50 mcg/actuation spray,suspension 2 spray intranasal DAILY 0RF Rx Instructions: administer into each nostril aspirin 81 mg tablet,delayed release (DR/EC) 81 mg PO DAILY Qty: 30 0RF hydrocodone-acetaminophen 5-325 mg tablet 1 tab PO Q6H PRN (Reason: Pain) 0RF cetirizine 5 mg Tablet 5 mg PO DAILY 0RF Methylpred 4 mg Tablets,Dose Pack 0 mg PO PER PKG DIR 0RF doxycycline hyclate 100 mg Tablet 100 mg PO BID 0RF Constulose 10 gram/15 mL Solution 20 g PO BID 0RF Discharge Orders: Discharge ED (Routine); Ordered 04/08/22 Ordered By: Mikie Alexander Referrals: Saji York [Primary Care Provider] - Discharge Diet: Advance as tolerated Discharge Activity: Increase activity as tolerated Patient Instructions: Heart Failure (ED) Activity Restrictions/Additional Instructions: Please follow-up with your inspector packer. Please take Bumex 2 mg twice daily 3 times a week. Follow-up with your primary care provider for adjustment of medicine if you cannot be seen by your inspector packer before April. Coding Level of Care Code ED Skin Diving Teacher for Chg Fwd Exam Comprehensive
--- NOTE | 2022-04-08 14:29 | PC.NURSE ---
PT PLACED ON CONTINUOUS SPO2, NIBP, AND CM.
[2022-04-08 14:38] LABS: Basophils % 0.2 %; Hematocrit 44.3 % (42.0-52.0); Hemoglobin 12.8 g/dL (11.7-16.6); Lymphocytes # 1.3 10^3/uL (0.8-4.8); Lymphocytes % 11.5 %; Mean Corpuscular HGB Conc 28.9 g/dL (30.0-36.0); Mean Corpuscular Hemoglobin 31.4 pg (28.0-34.0); Mean Corpuscular Volume 108.6 fl (80-94); Mean Platelet Volume 9.8 fL (7.4-10.4); Monocytes # 0.9 10^3/uL (0.2-0.9); Monocytes % 7.5 %; Neutrophils # 9.15 10^3/uL (1.8-7.7); Neutrophils % 79.2 %; Nucleated Red Blood Cells % 0 %; Platelet Count 243 10^3/cmm (130-400); Red Blood Count 4.08 10^6/uL (4.1-5.3); Red Cell Distribution Width 13.5 % (12.1-15.1); White Blood Count 11.6 10^3/uL (4.0-10.0)
--- NOTE | 2022-04-08 14:48 | PC.PHAR ---
PT AND PT STATE DR. GRAY FROM [facility] IN [place] CHANGES TO BUMETANIDE AND SPIRONOLACTONE DOSAGE LAST WEEK. CHANGES NOT REFLECTED ON EXTERNAL MED LIST. ONLY ON HOME MED LIST.
[2022-04-08 14:59] VITALS: BP 113/67; PULSE 89; RESP 18; O2SAT 96
[2022-04-08 15:12] LABS: Troponin(5th) Baseline 10 ng/L (0-15)
[2022-04-08 15:17] LABS: Alanine Aminotransferase 35 U/L (0-41); Albumin Level 3.7 g/dL (3.5-5.2); Alkaline Phosphatase 76 IU/L (40-130); Anion Gap 9.7 (5-19); Aspartate Amino Transferase 16 U/L (0-40); Blood Urea Nitrogen 19 mg/dL (8-23); Carbon Dioxide 39 mmol/L (22-29); Chloride 96 mmol/L (98-107); Globulin 2.9 g/dL (1.3-4.6); Glucose 191 mg/dL (65-115); Lipase 21 U/L (13-60); NT Pro B Type Natriuretic Pept 366 pg/mL (0-125); Osmolality Calculated 297 mOsm/kg (285-295); Potassium 4.7 mmol/L (3.5-5.1); Sodium 140 mmol/L (136-145); Total Bilirubin 0.2 mg/dL (0.15-1.2); Total Protein 6.6 g/dL (6.6-8.7)
--- NOTE | 2022-04-08 15:47 | ECG_ITS ---
[facility] Test Date: 2022-04-08 Pat Name: Sukumar Bangura Department: Room: Gender: Male Chief Of Planning: : 1955 Requested By: Mikie Alexander Order Number: [id number] Garcia MD: Darryl Guerra M.D. Measurements Intervals [place] Rate: 79 P: 54 AK: 141 QRS: 49 QRSD: 102 T: 35 QT: 386 QTc: 443 Interpretive Statements SINUS RHYTHM INCOMPLETE RIGHT BUNDLE BRANCH BLOCK [90+ ms QRS DURATION, TERMINAL R IN V1/V2, 40+ ms S IN I/aVL/V4/V5/V6] Compared to ECG 04/08/2022 14:06:44 No significant changes Electronically Signed On 04-08-2022 17:27:00 CDT by Darryl Guerra M.D. [id number]
[2022-04-08] MEDS: FUROsemide 10 mg/mL SDV 10mL 80 MG IVP (16:06)
== END 2022-04-08 16:43 | disposition home or self-care (01) ==
PROVIDERS: Emergency Provider Emergency Medicine; PCP Family Medicine
DX: M79.89 Other specified soft tissue disorders (principal); I50.9 Heart failure, unspecified; J44.9 Chronic obstructive pulmonary disease, unspecified; K21.9 Gastro-esophageal reflux disease without esophagitis; Z79.82 Long term (current) use of aspirin; Z87.891 Personal history of nicotine dependence
CPT/HCPCS: 71045; 80053; 83690; 83880; 84484; 85025; 93005; 96374; 99285; J1940

== ENCOUNTER 2022-05-08 16:06 | Emergency (ER) | payer MEDICARE, MEDICAID, SELFPAY ==
--- NOTE | 2022-05-08 16:08 | XRR_ITS ---
PROCEDURE INFORMATION: Exam: XR Chest Exam date and time: 05/08/2022 4:17 PM Age: 67 years old Clinical indication: Shortness of breath; Prior surgery; Surgery type: Back; Additional info: Chf, swelling TECHNIQUE: Imaging protocol: Radiologic exam of the chest. Views: 1 view. COMPARISON: CR XR chest 1V portable [id number] 04/08/2022 2:19 PM FINDINGS: Lungs: Visualized portions of the lungs remain clear. Pleural spaces: Unremarkable. No pleural effusion. No pneumothorax. Heart/Mediastinum: Heart is within normal limits of size. Bones/joints: Scoliosis is unchanged. A single Oconnor hetal is again identified. XR/XR chest 1V portable [id number] IMPRESSION: No acute infiltrates. Findings not significantly changed from 04/08/2022
[2022-05-08 16:25] VITALS: BP 135/75; PULSE 80; RESP 18; TEMP 37; O2SAT 95; BMI 47.2
[2022-05-08 17:09] LABS: Basophils % 0.5 %; Eosinophils # 0.2 10^3/uL (0.0-0.8); Eosinophils % 2.7 %; Hematocrit 38.3 % (42.0-52.0); Hemoglobin 11.9 g/dL (11.7-16.6); Lymphocytes # 1.9 10^3/uL (0.8-4.8); Lymphocytes % 24.6 %; Mean Corpuscular HGB Conc 31.1 g/dL (30.0-36.0); Mean Corpuscular Hemoglobin 30.8 pg (28.0-34.0); Mean Corpuscular Volume 99.2 fl (80-94); Mean Platelet Volume 9.3 fL (7.4-10.4); Monocytes # 1.1 10^3/uL (0.2-0.9); Monocytes % 14.5 %; Neutrophils # 4.26 10^3/uL (1.8-7.7); Neutrophils % 56.8 %; Nucleated Red Blood Cells % 0 %; Platelet Count 217 10^3/cmm (130-400); Red Blood Count 3.86 10^6/uL (4.1-5.3); Red Cell Distribution Width 12.6 % (12.1-15.1); White Blood Count 7.5 10^3/uL (4.0-10.0)
[2022-05-08 17:53] LABS: Alanine Aminotransferase 34 U/L (0-41); Alkaline Phosphatase 88 IU/L (40-130); Anion Gap 4.3 (5-19); Aspartate Amino Transferase 22 U/L (0-40); Blood Urea Nitrogen 10 mg/dL (8-23); Calcium 9.4 mg/dL (8.5-10.5); Chloride 84 mmol/L (98-107); Creatinine Clr Calc Pharmacy 94.9507; Globulin 3.5 g/dL (1.3-4.6); Glomerular Filtration Rate 96.7 mL/min (90-130); Glucose 121 mg/dL (65-115); NT Pro B Type Natriuretic Pept 87 pg/mL (0-125); Osmolality Calculated 276 mOsm/kg (285-295); Potassium 4.3 mmol/L (3.5-5.1); Sodium 133 mmol/L (136-145); Total Bilirubin 0.2 mg/dL (0.15-1.2); Total Protein 7.5 g/dL (6.6-8.7)
[2022-05-08 18:06] LABS: Carbon Dioxide 49 mmol/L (22-29)
--- NOTE | 2022-05-08 18:28 | ECG_ITS ---
[facility] Test Date: 2022-05-08 Pat Name: Sukumar Bangura Department: Room: Gender: Male Foot Doctor: : 1955 Requested By: Anu Stewart Order Number: [id number] Garcia MD: Hilary Ho M.D. Measurements Intervals [place] Rate: 80 P: 101 CT: 143 QRS: 34 QRSD: 125 T: 42 QT: 333 QTc: 385 Interpretive Statements SINUS RHYTHM RIGHT BUNDLE BRANCH BLOCK [120+ ms QRS DURATION, UPRIGHT V1, 40+ ms S IN I/aVL/V4/V5/V6] Compared to ECG 04/08/2022 15:40:11 Right bundle-branch block now present Incomplete right bundle-branch block no longer present Electronically Signed On 05-08-2022 22:25:00 CDT by Hilary Ho M.D. [id number]
--- NOTE | 2022-05-08 18:42 | W.ED.GENADLT ---
HPI - General Adult General: Chief complaint: General Medical Stated complaint: swelling Time Seen by Provider: 05/08/22 18:27 Source: patient Mode of arrival: ambulatory Limitations: no limitations History of Present Illness: 67-year-old male who has extensive history of congestive heart failure he is on 3 L of oxygen at baseline. He states that his legs have been increased swelling he states he has been gaining water weight. He states swelling is causing him some pain bilaterally. Denies any cough or worsening shortness of breath. He does take Bumex at home daily. PFSH ED PFSH: Medical History Acquired arm deformity Chronic hypercapnic respiratory failure Congestive heart failure COPD (chronic obstructive pulmonary disease) Fixation hardware in spine GERD (gastroesophageal reflux disease) Hyperglycemia Kyphoscoliosis Obesity CELESTE (obstructive sleep apnea) Restrictive lung disease due to kyphoscoliosis Scoliosis Tobacco chew use Surgical History H/O arthroscopy of shoulder History of appendectomy History of [place] fundoplication Hx of cholecystectomy Family History Father Cancer Social History Smoking and tobacco status: former smoker Quit status (tobacco): has quit using tobacco Year quit tobacco: 2010 Former quit date comment: 2ppd x 10 years Second hand smoke exposure: No Smoking risk assessment/counseling performed?: Yes Alcohol intake: never Lives independently: Yes Household members: spouse Housing: House Marital status: service: No Current occupational status: employed 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 Pets and animals: Yes History of recent travel: No Current gender identity: Male Physical Exam Const: COMMON NORMALS: no acute distress, patient oriented x3 and healthy appearing HENMT: COMMON NORMALS: normocephalic and atraumatic HEAD & SCALP: normocephalic and atraumatic Eye: COMMON NORMALS: Equal, round and reactive pupils present and EOMs intact bilaterally PUPIL: Yes Equal, round and reactive pupils present Neck/C-Spine: COMMON NORMALS: full ROM and supple Chest: COMMONS NORMALS: normal inspection of the chest and normal palpation of entire chest wall Resp: COMMON NORMALS: normal respiratory effort, No retractions, No use of accessory muscles and clear to auscultation bilaterally AUSCULTATION: clear to auscultation bilaterally Cardio: COMMON NORMALS: regular rate, regular rhythm and No murmurs present (Cardio) RATE: regular rate RHYTHM: regular rhythm GI: COMMON NORMALS: Normal to inspection, nondistended, normoactive bowel sounds present, Soft to palpation, non-tender and no masses PALPATION: Yes Soft to palpation Extremity: COMMON NORMALS: full ROM NARRATIVE EXTREMITY EXAM: 2+ lower extremity edema Neuro: COMMON NORMALS: patient oriented x3, moves all extremities and no focal motor deficits Psych: COMMON NORMALS: mental status grossly normal, Normal thought process present and cooperative THOUGHT PROCESS: Normal thought process present Skin: COMMON NORMALS: no rashes or lesions noted and no wounds GENERAL SKIN EXAM: no rashes or lesions noted Course Vital Signs: Vital signs: Vital Signs Temperature 98.6 F 05/08/22 16:25 Pulse Rate 80 05/08/22 16:25 Respiratory Rate 18 05/08/22 16:25 Blood Pressure 135/75 05/08/22 16:25 Pulse Oximetry 95 05/08/22 16:25 [facility] - General Adult Medical Decision Making Patient presents here with lower extremity edema. He is well-appearing here no respiratory distress did give him IV Lasix he is stable for discharge he is to take his Bumex at home follow-up with his sheet rock installer return if worsening he understands agrees plan. Lab Data : 05/08/22 16:54 05/08/22 16:54 Radiology Impressions Chest X-Ray 05/08/22 16:08 IMPRESSION: No acute infiltrates. Findings not significantly changed from 04/08/2022 Laboratory Results WBC 7.5 10^3/uL (4.0-10.0) 05/08/22 16:54 RBC 3.86 10^6/uL (4.1-5.3) L 05/08/22 16:54 Hgb 11.9 g/dL (11.7-16.6) 05/08/22 16:54 Hct 38.3 % (42.0-52.0) L 05/08/22 16:54 MCV 99.2 fl (80-94) H 05/08/22 16:54 MCH 30.8 pg (28.0-34.0) 05/08/22 16:54 MCHC 31.1 g/dL (30.0-36.0) 05/08/22 16:54 RDW 12.6 % (12.1-15.1) 05/08/22 16:54 Plt Count 217 10^3/cmm (130-400) 05/08/22 16:54 MPV 9.3 fL (7.4-10.4) 05/08/22 16:54 Neut % (Auto) 56.8 % 05/08/22 16:54 Lymph % (Auto) 24.6 % 05/08/22 16:54 [place] % (Auto) 14.5 % 05/08/22 16:54 Eos % (Auto) 2.7 % 05/08/22 16:54 Baso % (Auto) 0.5 % 05/08/22 16:54 Neut # (Auto) 4.26 10^3/uL (1.8-7.7) 05/08/22 16:54 Lymph # (Auto) 1.9 10^3/uL (0.8-4.8) 05/08/22 16:54 [place] # (Auto) 1.1 10^3/uL (0.2-0.9) H 05/08/22 16:54 Eos # (Auto) 0.2 10^3/uL (0.0-0.8) 05/08/22 16:54 Baso # (Auto) 0.0 10^3/uL (0.0-0.1) 05/08/22 16:54 Nucleated RBC % (auto) 0 % 05/08/22 16:54 Nucleated RBCs # 0.0 /100WBC 05/08/22 16:54 Sodium 133 mmol/L (136-145) L 05/08/22 16:54 Potassium 4.3 mmol/L (3.5-5.1) 05/08/22 16:54 Chloride 84 mmol/L (98-107) L 05/08/22 16:54 Carbon Dioxide 49 mmol/L (22-29) H* 05/08/22 16:54 Anion Gap 4.3 (5-19) L 05/08/22 16:54 BUN 10 mg/dL (8-23) 05/08/22 16:54 Creatinine 0.8 mg/dL (0.7-1.2) 05/08/22 16:54 GFR Calculation 96.7 mL/min (90-130) 05/08/22 16:54 Glucose 121 mg/dL (65-115) H 05/08/22 16:54 Calculated Osmolality 276 mOsm/kg (285-295) L 05/08/22 16:54 Calcium 9.4 mg/dL (8.5-10.5) 05/08/22 16:54 Total Bilirubin 0.2 mg/dL (0.15-1.2) 05/08/22 16:54 AST 22 U/L (0-40) 05/08/22 16:54 ALT 34 U/L (0-41) 05/08/22 16:54 Alkaline Phosphatase 88 IU/L (40-130) 05/08/22 16:54 NT-Pro-B Natriuret Pep 87 pg/mL (0-125) 05/08/22 16:54 Total Protein 7.5 g/dL (6.6-8.7) 05/08/22 16:54 Albumin 4.0 g/dL (3.5-5.2) 05/08/22 16:54 Globulin 3.5 g/dL (1.3-4.6) 05/08/22 16:54 EKG Data EKG 1: I personally reviewed and interpreted this EKG as follows: EKG interpretation date: 05/08/22 EKG interpretation time: 18:41 Interpretation: nsr hr [address] or t wave abnormalities qrs 125 qtc 369 Computer generated interpretation: Chest X-Ray 05/08/22 16:08 IMPRESSION: No acute infiltrates. Findings not significantly changed from 04/08/2022 Discharge Plan Discharge Patient Disposition: Home Clinical Impression: Bilateral lower extremity edema Condition: Stable Prescriptions: No Action prochlorperazine maleate 5 mg tablet 5 mg PO Q6H PRN (Reason: Nausea) 0RF trazodone 50 mg tablet 100 mg PO BEDTIME 0RF ranolazine 500 mg tablet extended release 12 hr 500 mg PO BID 0RF magnesium 250 mg tablet See Rx Instructions PO DAILY 0RF Rx Instructions: 1 tab 2 days weekly with potassium potassium chloride 10 mEq capsule, extended release 10 meq PO DAILY 0RF bumetanide 2 mg tablet 2 mg PO DAILY 0RF spironolactone 25 mg tablet See Rx Instructions .ROUTE .COMPLEX 0RF Rx Instructions: FRIDAY - FRIDAY aspirin 81 mg tablet,delayed release (DR/EC) 81 mg PO DAILY Qty: 30 0RF hydrocodone-acetaminophen 5-325 mg tablet 1 tab PO Q6H PRN (Reason: Pain) 0RF cetirizine 5 mg Tablet 5 mg PO DAILY 0RF Discharge Orders: Discharge ED (Routine); Ordered 05/08/22 Ordered By: Anu Stewart Referrals: Saji York [Primary Care Provider] - Discharge Diet: Advance as tolerated Discharge Activity: Resume usual activity Patient Instructions: Leg Edema (ED) Coding Level of Care Code ED Trucksmith for Chg Fwd Exam Comprehensive
[2022-05-08] MEDS: FUROsemide 10 mg/mL SDV 10mL 80 MG IVP (18:46)
== END 2022-05-08 19:54 | disposition home or self-care (01) ==
PROVIDERS: Physician Assistant; Emergency Provider Emergency Medicine; PCP Family Medicine
DX: R60.0 Localized edema (principal); Z79.82 Long term (current) use of aspirin; I50.9 Heart failure, unspecified; J44.9 Chronic obstructive pulmonary disease, unspecified; Z87.891 Personal history of nicotine dependence
CPT/HCPCS: 71045; 80053; 83880; 85025; 93005; 96374; 99284; J1940

== ENCOUNTER → 2022-06-26 10:42 | Outpatient (BNVA) | payer MEDICARE, MEDICAID, SELFPAY | PROVIDERS: PCP Family Medicine; Visit Provider Internal Medicine Pulmonary Disease | DX: J44.9 Chronic obstructive pulmonary disease, unspecified (principal); J96.12 Chronic respiratory failure with hypercapnia; J98.4 Other disorders of lung; M41.9 Scoliosis, unspecified; I50.32 Chronic diastolic (congestive) heart failure; Z99.81 Dependence on supplemental oxygen; G47.33 Obstructive sleep apnea (adult) (pediatric); F17.220 Nicotine dependence, chewing tobacco, uncomplicated | CPT/HCPCS: 99214 ==

== ENCOUNTER 2022-07-09 16:00 | Inpatient (IN) | payer MEDICARE, MEDICAID, SELFPAY ==
[2022-07-09] VITALS (23 sets, daily range): BP systolic 92–128; BP diastolic 41–75; PULSE 69–109; RESP 12–30; TEMP 37.2–37.3; O2SAT 78–100; BMI 46.5; BMI 45.1
--- NOTE | 2022-07-09 16:21 | XRR_ITS ---
PROCEDURE INFORMATION: Exam: XR Chest Exam date and time: 07/09/2022 4:41 PM Age: 67 years old Clinical indication: Shortness of breath; Additional info: SOB TECHNIQUE: Imaging protocol: Radiologic exam of the chest. Views: 2 views. COMPARISON: CR XR chest 1V portable [id number] 05/08/2022 4:17 PM FINDINGS: Lungs: Mild to moderate left basilar atelectasis and/or infiltrate and/or effusion. Pleural spaces: Unremarkable. No pleural effusion. No pneumothorax. Heart/Mediastinum: Stable cardiomegaly. Bones/joints: Stable single Oconnor hetal from the cervical spine through the lumbar spine. Stable scoliosis with some stable deformity of the ribcage. XR/XR chest 2V* [id number] IMPRESSION: 1. Stable cardiomegaly. 2.
[2022-07-09 16:37] LABS: Basophils % 0.2 %; Eosinophils % 0.6 %; Hematocrit 38.8 % (42.0-52.0); Hemoglobin 11.3 g/dL (11.7-16.6); Lymphocytes % 19.7 %; Mean Corpuscular HGB Conc 29.1 g/dL (30.0-36.0); Mean Corpuscular Hemoglobin 29.6 pg (28.0-34.0); Mean Corpuscular Volume 101.6 fl (80-94); Mean Platelet Volume 9.6 fL (7.4-10.4); Monocytes # 0.9 10^3/uL (0.2-0.9); Monocytes % 17.7 %; Neutrophils # 2.98 10^3/uL (1.8-7.7); Neutrophils % 61.2 %; Nucleated Red Blood Cells % 0 %; Platelet Count 154 10^3/cmm (130-400); Red Blood Count 3.82 10^6/uL (4.1-5.3); Red Cell Distribution Width 13.1 % (12.1-15.1); White Blood Count 4.9 10^3/uL (4.0-10.0)
[2022-07-09] MEDS: ipratropium-albuterol 3 mL Neb INHALATION ×2 (16:54→19:30)
[2022-07-09 17:00] LABS: Alanine Aminotransferase 35 U/L (0-41); Albumin Level 3.5 g/dL (3.5-5.2); Alkaline Phosphatase 81 U/L (40-130); Aspartate Amino Transferase 33 U/L (0-40); Blood Urea Nitrogen 11 mg/dL (8-23); Calcium 8.8 mg/dL (8.5-10.5); Carbon Dioxide 32 mmol/L (22-29); Chloride 101 mmol/L (98-107); Globulin 3.1 g/dL (1.3-4.6); Glomerular Filtration Rate 84.4 mL/min (90-130); Glucose 111 mg/dL (65-115); Osmolality Calculated 290 mOsm/kg (285-295); Sodium 140 mmol/L (136-145); Total Bilirubin 0.2 mg/dL (0.15-1.2); Total Protein 6.6 g/dL (6.6-8.7)
--- NOTE | 2022-07-09 17:08 | W.ED.SOB ---
HPI - SOB/Dyspnea General: Chief Complaint: Shortness of Breath/Dyspnea Stated Complaint: SOB Time Seen by Provider: 07/09/22 16:20 History of Present Illness: HPI Narrative: 67-year-old male presenting today with shortness of breath and dyspnea. Patient has COPD. Noting that it appears to be worse today. This will happen approximately once a year. Does not take his DuoNeb's at home. Notes that over the last 24 hours has had intermittent fevers, chills, worsening cough. He is on 2 L of oxygen at all times. Has increased his oxygen to 4 L by nasal cannula. No recent steroids. No recent antibiotics. He denies chest pain. He denies new pain or swelling in his lower extremities. Review of Systems General: Reports: 10 or more systems reviewed and unremarkable except in HPI and below PFSH ED PFSH: Medical History Acquired arm deformity Chronic hypercapnic respiratory failure Congestive heart failure COPD (chronic obstructive pulmonary disease) Fixation hardware in spine GERD (gastroesophageal reflux disease) Hyperglycemia Kyphoscoliosis Obesity CELESTE (obstructive sleep apnea) Restrictive lung disease due to kyphoscoliosis Scoliosis Tobacco chew use Surgical History H/O arthroscopy of shoulder History of appendectomy History of [place] fundoplication Hx of cholecystectomy Family History Father Cancer Social History Smoking and tobacco status: former smoker Quit status (tobacco): has quit using tobacco Year quit tobacco: 2010 Former quit date comment: 2ppd x 10 years Second hand smoke exposure: No Smoking risk assessment/counseling performed?: Yes Alcohol intake: never Lives independently: Yes Household members: spouse Housing: House Marital status: service: No Current occupational status: employed 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 Pets and animals: Yes History of recent travel: No Current gender identity: Male Physical Exam Const: COMMON NORMALS: no acute distress, patient oriented x3 and alert GENERAL APPEARANCE: cooperative ORIENTATION/CONSCIOUSNESS: Yes awake, Yes oriented to person, Yes oriented to place and Yes oriented to time HENMT: COMMON NORMALS: normocephalic, atraumatic, external ears normal, Normal external nose present and moist oral mucous membranes HEAD & SCALP: normal to inspection, normocephalic and atraumatic NOSE: Normal external nose present GENERAL EAR: hearing grossly impaired EXTERNAL EAR: Yes external ears normal Eye: COMMON NORMALS: Equal, round and reactive pupils present, EOMs intact bilaterally, conjunctivae normal and no scleral icterus GENERAL EYE: appearance normal, both eyes and all related structures EYELID: eyelids normal CONJUNCTIVA: Yes conjunctivae normal SCLERA: sclerae normal PUPIL: Yes Equal, round and reactive pupils present Neck/C-Spine: COMMON NORMALS: full ROM, supple and no JVD GENERAL: Yes normal visual inspection Lymph: LYMPHATIC: no lymphadenopathy noted and no lymphedema noted Chest: COMMONS NORMALS: normal inspection of the chest Resp: COMMON NORMALS: normal respiratory effort, No retractions and No use of accessory muscles; negative for clear to auscultation bilaterally (Diffuse expiratory wheezing in all bryant.) AUSCULTATION: not clear to auscultation bilaterally (Diffuse expiratory wheezing in all bryant.) Cardio: COMMON NORMALS: no JVD, regular rate and regular rhythm RATE: regular rate RHYTHM: regular rhythm GI: COMMON NORMALS: Normal to inspection, nondistended, normoactive bowel sounds present : COMMON NORMALS: Yes no CVA tenderness BLADDER/KIDNEY EXAM: Yes no CVA tenderness Back/Pelvis: COMMON NORMALS: no CVA tenderness and thoracic and lumbar spine normal to inspection Extremity: COMMON NORMALS: normal to inspection, full ROM and capillary refill normal GENERAL: Yes normal exam except as noted Neuro: COMMON NORMALS: patient oriented x3, CN's II-XII intact bilaterally, moves all extremities, no focal motor deficits, no sensory deficits noted and gait normal SENSORIUM/ORIENTATION: Yes alert, Yes oriented to person, Yes oriented to place and Yes oriented to time Psych: COMMON NORMALS: mental status grossly normal, Normal thought process present, cooperative and normal affect THOUGHT PROCESS: Normal thought process present Skin: COMMON NORMALS: no rashes or lesions noted and no wounds GENERAL SKIN EXAM: no rashes or lesions noted Course Vital Signs: Vital signs: Vital Signs Temperature 99.1 F 07/09/22 16:18 Pulse Rate 69 07/09/22 21:30 Respiratory Rate 24 H 07/09/22 19:39 Blood Pressure 126/66 07/09/22 21:30 Pulse Oximetry 100 07/09/22 21:30 Oxygen Delivery Me thod 07/09/22 21:30 Oxygen Flow Rate 5 07/09/22 19:39 Fraction of Inspir ed Oxygen 35 07/09/22 21:30 MDM - SOB/Dyspnea Medical Decision Making 67-year-old male presenting today with shortness of breath. Diffuse expiratory wheezing noted in all bryant. Patient's vital signs within normal limits upon evaluation. Chest x-ray without specific consolidation. Though poor view secondary to significant scoliosis. ABG with evidence of hypercarbic respiratory failure. Patient also sleepy and intermittently hypoxic on patient's home dose of oxygen in the room. Will admit to the hospital for further evaluation and management. Lab Data : 07/09/22 16:26 07/09/22 16:26 Labs/Radiology: Radiology Impressions Chest X-Ray 07/09/22 16:21 IMPRESSION: 1. Stable cardiomegaly. 2. ADDENDUM: 07/09/22 650 Impression: 2. Slight increased [id number] left basilar atelectasis and/or infiltrate and/or effusion. Laboratory Results WBC 4.9 10^3/uL (4.0-10.0) 07/09/22 16: RBC 3.82 10^6/uL (4.1-5.3) L 07/09/22 16:26 Hgb 11.3 g/dL (11.7-16.6) L 07/09/22 16: Hct 38.8 % (42.0-52.0) L 07/09/22 16: MCV 101.6 fl (80-94) H 07/09/22 16: MCH 29.6 pg (28.0-34.0) 07/09/22 16: MCHC 29.1 g/dL (30.0-36.0) L 07/09/22 16: RDW 13.1 % (12.1-15.1) 07/09/22 16: Plt Count 154 10^3/cmm (130-400) 07/09/22 16:26 MPV 9.6 fL (7.4-10.4) 07/09/22 16:26 Neut % (Auto) 61.2 % 07/09/22 16: Lymph % (Auto) 19.7 % 07/09/22 16:26 Meade % (Auto) 17.7 % 07/09/22 16: Eos % (Auto) 0.6 % 07/09/22 16: Baso % (Auto) 0.2 % 07/09/22 16: Neut # (Auto) 2.98 10^3/uL (1.8-7.7) 07/09/22 16: Lymph # (Auto) 1.0 10^3/uL (0.8-4.8) 07/09/22 16: Meade # (Auto) 0.9 10^3/uL (0.2-0.9) 07/09/22 16: Eos # (Auto) 0.0 10^3/uL (0.0-0.8) 07/09/22 16: Baso # (Auto) 0.0 10^3/uL (0.0-0.1) 07/09/22 16: Nucleated RBC % (auto) 0 % 07/09/22 16: Nucleated RBCs # 0.0 /100WBC 07/09/22 16: Specimen Type Venous 07/09/22 18:43 Sample Site Iv 07/09/22 18:43 Humberto Test N/a 07/09/22 18:43 VBG pH 7.26 (7.32-7.42) L 07/09/22 18:43 VBG pCO2 73.4 mmHg (41-51) H* 07/09/22 18:43 VBG pO2 40.4 mmHg (25-40) H 07/09/22 18:43 VBG HCO3 32.5 mmol/L (24-28) H 07/09/22 18:43 VBG Base Excess 3.6 mmol/L (-3.0-3.0) H 07/09/22 18:43 VBG Hematocrit 35.1 % (42-52) L 07/09/22 18:43 O2 Delivery Device 07/09/22 18:43 O2 Liters/Min 4.0 % 07/09/22 18:43 Packaging Machine Supplies Distributor ID Cak 07/09/22 18:43 Sodium 140 mmol/L (136-145) 07/09/22 16:26 Potassium 4.0 mmol/L (3.5-5.1) 07/09/22 16: Chloride 101 mmol/L (98-107) 07/09/22 16:26 Carbon Dioxide 32 mmol/L (22-29) H 07/09/22 16:26 Anion Gap 11.0 (5-19) 07/09/22 16:26 BUN 11 mg/dL (8-23) 07/09/22 16:26 Creatinine 0.9 mg/dL (0.7-1.2) 07/09/22 16:26 GFR Calculation 84.4 mL/min (90-130) L 07/09/22 16:26 Glucose 111 mg/dL (65-115) 07/09/22 16:26 Calculated Osmolality 290 mOsm/kg (285-295) 07/09/22 16:26 Calcium 8.8 mg/dL (8.5-10.5) 07/09/22 16:26 Total Bilirubin 0.2 mg/dL (0.15-1.2) 07/09/22 16:26 AST 33 U/L (0-40) 07/09/22 16:26 ALT 35 U/L (0-41) 07/09/22 16:26 Alkaline Phosphatase 81 U/L (40-130) 07/09/22 16:26 Total Protein 6.6 g/dL (6.6-8.7) 07/09/22 16:26 Albumin 3.5 g/dL (3.5-5.2) 07/09/22 16:26 Globulin 3.1 g/dL (1.3-4.6) 07/09/22 16:26 Discharge Plan Discharge Patient Disposition: Admitted As Inpatient Admit Provider: Marcos Aaron Clinical Impression: Acute exacerbation of chronic obstructive airways disease, Acute respiratory failure with hypoxia and hypercarbia Condition: Stable Discharge Diet: Advance as tolerated Discharge Activity: Resume usual activity Coding Level of Care Code ED Carbide Grinder for Chg Fwd Exam Comprehensive
[2022-07-09] MEDS: cefTRIAXone 1,000 MG in sodium chloride 0.9% (plus) 50 ML 100 MG IV (17:16)
[2022-07-09] MEDS: predniSONE 20 mg Tablet 60 MG PO (17:16)
--- NOTE | 2022-07-09 17:45 | PC.NURSE ---
Another nurse attempted to DC patient, sats were mid 80's on 3L NC. O2 increased to 5L. ERP made aware, awaiting orders.
--- NOTE | 2022-07-09 17:47 | ECG_ITS ---
[facility] Test Date: 2022-07-09 Pat Name: Sukumar Bangura Department: Room: Gender: Male Leather Tooler: : 1955 Requested By: Desean Alejandra Order Number: [id number] Garcia MD: Darryl Guerra M.D. Measurements Intervals [place] Rate: 95 P: 55 SD: 150 QRS: 76 QRSD: 108 T: 61 QT: 375 QTc: 472 Interpretive Statements SINUS RHYTHM INCOMPLETE RIGHT BUNDLE BRANCH BLOCK [90+ ms QRS DURATION, TERMINAL R IN V1/V2, 40+ ms S IN I/aVL/V4/V5/V6] Compared to ECG 05/08/2022 18:41:55 Incomplete right bundle-branch block now present Right bundle-branch block no longer present Electronically Signed On 07-10-2022 0:17:42 CDT by Darryl Guerra M.D. [id number] f
[2022-07-09 18:54] LABS: Base Excess VBG 3.6 mmol/L (-3.0-3.0); Blood Gas Operator Identificat CAK; Blood Gas Sample Site IV; Blood Gas Sample Type Venous; HCO3 VBG 32.5 mmol/L (24-28); PCO2 VBG 73.4 mmHg (41-51); PO2 VBG 40.4 mmHg (25-40); Venous Blood Gas Hematocrit 35.1 % (42-52); pH VBG 7.26 (7.32-7.42)
--- NOTE | 2022-07-09 19:04 | PC.NURSE ---
Report given to STEFFEN Meléndez
--- NOTE | 2022-07-09 20:06 | ECG_ITS ---
[facility] Test Date: 2022-07-09 Pat Name: Sukumar Bangura Department: Room: ICU04 Gender: Male Senior Database Administrator: : 1955 Requested By: Marcos Aaron Order Number: [id number] Garcia MD: Darryl Guerra M.D. Measurements Intervals [place] Rate: 70 P: 48 ME: 154 QRS: 19 QRSD: 103 T: 58 QT: 412 QTc: 447 Interpretive Statements SINUS RHYTHM LOW QRS VOLTAGE IN PRECORDIAL LEADS [QRS DEFLECTION < 1.0 mV IN CHEST LEADS] INCOMPLETE RIGHT BUNDLE BRANCH BLOCK [90+ ms QRS DURATION, TERMINAL R IN V1/V2, 40+ ms S IN I/aVL/V4/V5/V6] Compared to ECG 07/09/2022 17:47:27 Low QRS voltage now present Electronically Signed On 07-10-2022 0:16:48 CDT by Darryl Guerra M.D. [email or web address]/store/[id number]
--- NOTE | 2022-07-09 20:08 | PM.HP ---
Providers/Chief Complaint Admitting Physician: Marcos Aaron MD Primary Care Provider: Saji York Chief Complaint: SOB History of Present Illness Sukumar Bangura is a 67 year old male with a past medical tree of COPD, chronic hypercarbic respiratory failure, on home AVAPS, morbid obesity, CAD, diastolic CHF, CELESTE, who presents to [facility] due to increased shortness of breath, increased productive cough, fatigue, malaise. Patient read tells me he was recently hospitalized at [facility] for bilateral lower extremity edema, fluid overload, was diuresed, placed on Bumex, acetazolamide, since then he has had compression stockings in place. However now he continues to feel short of breath, weak fatigue, he is having productive cough, yellow-green sputum, he reports low-grade fevers, denies any COVID-19 exposure, no history of COVID-19 vaccinations, no nausea, no vomiting, no chest pain, no palpitations Review of Systems Const: Denies: fever(s) Card: Denies: chest pain Resp: Reports: dyspnea and productive cough Medications/Allergies Home Medications Medication Instructions Recorded Confirmed Last Taken Type aspirin 81 mg tablet,delayed 81 mg PO DAILY #30 tabs 06/02/21 06/26/22 05/08/22 Rx release hydrocodone 5 mg-acetaminophen 325 1 tab PO Q6H PRN Pain 01/12/22 06/26/22 01/12/22 History mg tablet prochlorperazine maleate 5 mg 5 mg PO Q6H PRN Nausea 02/12/22 06/26/22 Unknown History tablet ranolazine 500 mg tablet,extended 500 mg PO BID 02/12/22 06/26/22 05/08/22 History release,12 hr trazodone 50 mg tablet 100 mg PO BEDTIME 02/12/22 06/26/22 05/07/22 History magnesium 250 mg tablet See Rx Instructions PO DAILY 03/21/22 05/08/22 Unknown History potassium chloride 10 mEq 10 meq PO DAILY 03/21/22 06/26/22 05/08/22 History capsule,extended release spironolactone 25 mg tablet See Rx Instructions .Route .COMPLEX 03/21/22 05/08/22 05/08/22 History cetirizine 5 mg tablet 5 mg PO DAILY 04/08/22 06/26/22 05/08/22 History bumetanide 2 mg tablet See Rx Instructions PO DAILY 06/26/22 06/26/22 Unknown History azithromycin 250 mg tablet See Rx Instructions PO .COMPLEX #6 07/09/22 Unknown Rx tabs prednisone 50 mg tablet 50 mg PO DAILY #5 tabs 07/09/22 Unknown Rx Allergies Allergy/AdvReac Type Severity Reaction Status Date / Time codeine Allergy ALGY-Rash Verified 06/26/22 11:08 PFSH Acute PFSH: Medical History Acquired arm deformity Chronic hypercapnic respiratory failure Congestive heart failure COPD (chronic obstructive pulmonary disease) Fixation hardware in spine GERD (gastroesophageal reflux disease) Hyperglycemia Kyphoscoliosis Obesity CELESTE (obstructive sleep apnea) Restrictive lung disease due to kyphoscoliosis Scoliosis Tobacco chew use Surgical History H/O arthroscopy of shoulder History of appendectomy History of [place] fundoplication Hx of cholecystectomy Family History Father Cancer Social History Smoking and tobacco status: former smoker Quit status (tobacco): has quit using tobacco Year quit tobacco: 2010 Former quit date comment: 2ppd x 10 years Second hand smoke exposure: No Smoking risk assessment/counseling performed?: Yes Alcohol intake: never Lives independently: Yes Household members: spouse Housing: House Marital status: service: No Current occupational status: employed 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 Pets and animals: Yes History of recent travel: No Current gender identity: Male Vitals/I&O/Wt Last Vital Signs Temp 99.1 F 07/09/22 16:18 Pulse 79 07/09/22 19:39 Resp 24 H 07/09/22 19:39 BP 126/59 07/09/22 18:27 Pulse Ox 100 07/09/22 19:39 O2 Del Method 07/09/22 19:39 O2 Flow Rate 5 07/09/22 19:39 FiO2 35 07/09/22 19:39 07/09/22 07/09/22 07/09/22 06:59 14:59 22:59 Intake Total 50 / 50 Balance 50 / 50 Weight last 48 hrs Weight 107.955 kg Weight 107.955 kg Physical Exam Const: COMMON NORMALS: no acute distress and patient oriented x3 HENMT: COMMON NORMALS: normocephalic HEAD & SCALP: normocephalic Eye: COMMON NORMALS: Equal, round and reactive pupils present and EOMs intact bilaterally Neck/C-Spine: COMMON NORMALS: no JVD Resp: COMMON NORMALS: normal respiratory effort, No retractions and No use of accessory muscles AUSCULTATION: diminished lung sounds diffuse Cardio: COMMON NORMALS: no JVD, regular rate, regular rhythm, S1 normal heart sound present and S2 normal heart sound present RATE: regular rate RHYTHM: regular rhythm HEART SOUNDS: S1 normal heart sound present and S2 normal heart sound present GI: COMMON NORMALS: Normal to inspection, nondistended, normoactive bowel sounds present, Soft to palpation, non-tender, No hepatosplenomegaly present, no masses and no bruits PALPATION: Yes Soft to palpation and Yes No hepatosplenomegaly present Extremity: NARRATIVE EXTREMITY EXAM: Has compression stockings in place Neuro: COMMON NORMALS: patient oriented x3 Psych: COMMON NORMALS: mental status grossly normal Data : 07/09/22 16:26 07/09/22 16:26 A&P Assessment and plan (1) Acute exacerbation of chronic obstructive airways disease: Status: Acute (2) Acute respiratory failure with hypoxia and hypercarbia: Status: Acute (3) CHF exacerbation: Status: Acute Plan Acute hypoxic hypercarbic respiratory failure -Secondary to COPD exacerbation -Diastolic CHF Plan -Admit to ICU -Monitor respiratory status closely -Patient's family will bring in home AVAPS, continue BiPAP for now -Bumex 1 mg every 12 hours -Solu-Medrol -Rocephin and azithromycin -Blood cultures, sputum cultures -Monitor respiratory status closely -Full code -Lovenox for DVT prophylaxis Attestations Medical Necessity Statement*: Patient requires hospitalization for acute on chronic hypercarbic respiratory failure Coding Level of Care Code Acute Payroll And Benefits Analyst for Edwin Fwd Exam Comprehensive Diagnoses Acute exacerbation of chronic obstructive airways disease J44.1 Acute respiratory failure with hypoxia and hypercarbia J96.01; J96.02 CHF exacerbation I50.9
[2022-07-09 22:00] LABS: Lactate (Lactic Acid level) 0.7 mmol/L (0.5-2.2)
[2022-07-09 22:03] LABS: Troponin(5th) Baseline 12 ng/L (0-15)
[2022-07-09 22:11] LABS: NT Pro B Type Natriuretic Pept 156 pg/mL (0-125); Procalcitonin 0.13 ng/mL (0-0.5)
--- NOTE | 2022-07-09 22:23 | ECG_ITS ---
[facility] Test Date: 2022-07-10 Pat Name: Sukumar Bangura Department: Room: ICU04 Gender: Male Hull And Deck Remover: : 1955 Requested By: Marcos Aaron Order Number: [id number] Garcia MD: Darryl Guerra M.D. Measurements Intervals [place] Rate: 93 P: 46 NH: 155 QRS: 33 QRSD: 121 T: 35 QT: 386 QTc: 481 Interpretive Statements SINUS RHYTHM MODERATE INTRAVENTRICULAR CONDUCTION DELAY [110+ ms QRS DURATION] Compared to ECG 07/09/2022 21:23:14 Intraventricular conduction delay now present Incomplete right bundle-branch block no longer present Electronically Signed On 07-10-2022 0:18:05 CDT by Darryl Guerra M.D. [email or web address] [facility].[employer]/store/[id number]
[2022-07-09] MEDS: trazodone 100 mg Tablet PO (23:25)
[2022-07-09] MEDS: pantoprazole 40 mg SDV IVP (23:25)
[2022-07-09] MEDS: atorvastatin 40 mg Tablet PO (23:25)
[2022-07-09] MEDS: bumetanide 0.25 mg/mL SDV 10 mL 1 MG IVP (23:26)
[2022-07-09] MEDS: enoxaparin 40 mg/0.4 mL Syringe SUBCUT (23:27)
[2022-07-09] MEDS: potassium chloride ER 20 mEq Tablet PO (23:29)
[2022-07-09] MEDS: azithromycin 500 MG in sodium chloride 0.9% 250 ML 250 MG IV (23:42)
[2022-07-10] VITALS (80 sets, daily range): BP systolic 78–146; BP diastolic 37–87; PULSE 43–112; RESP 9–27; TEMP 36.8; O2SAT 91–100
[2022-07-10 01:33] LABS: Adenovirus Not Detected (NOT DETECT); Chlamydia Pneumoniae Not Detected (NOT DETECT); Coronavirus 229E,HKU1,NL63,OC4 Not Detected (NOT DETECT); Human Metapneumovirus Not Detected (NOT DETECT); Human Rhinovirus/Enterovirus Not Detected (NOT DETECT); Influenza A Not Detected (NOT DETECT); Influenza A H1 Not Detected (NOT DETECT); Influenza A H1-2009 Not Detected (NOT DETECT); Influenza A H3 Not Detected (NOT DETECT); Influenza B Not Detected (NOT DETECT); Mycoplasma Pneumoniae Not Detected (NOT DETECT); Parainfluenza Virus Type 1 Not Detected (NOT DETECT); Parainfluenza Virus Type 2 Not Detected (NOT DETECT); Parainfluenza Virus Type 3 Not Detected (NOT DETECT); Parainfluenza Virus Type 4 Not Detected (NOT DETECT); Respiratory Syncytial Virus A Not Detected (NOT DETECT); Respiratory Syncytial Virus B Not Detected (NOT DETECT); SARS-COV-2 Detected (NOT DETECT)
[2022-07-10 02:59] LABS: Troponin 5 2HR 11.12 ng/L (0-15)
--- NOTE | 2022-07-10 04:00 | ECG_ITS ---
[facility] Test Date: 2022-07-10 Pat Name: Sukumar Bangura Department: Room: ICU04 Gender: Male Client Success Director: : 1955 Requested By: Marcos Aaron Order Number: [id number] Garcia MD: Orville Marinelli M.D. Measurements Intervals [place] Rate: 59 P: 77 NH: 166 QRS: 31 QRSD: 105 T: 74 QT: 464 QTc: 462 Interpretive Statements SINUS BRADYCARDIA INCOMPLETE RIGHT BUNDLE BRANCH BLOCK [90+ ms QRS DURATION, TERMINAL R IN V1/V2, 40+ ms S IN I/aVL/V4/V5/V6] PROLONGED QT INTERVAL Compared to ECG 07/10/2022 00:03:47 Incomplete right bundle-branch block now present Prolonged QT interval now present Sinus rhythm no longer present Intraventricular conduction delay no longer present Electronically Signed On 07-10-2022 16:34:08 CDT by Orville Marinelli M.D. [email or web address].[employer]/store/OM/[id number]
[2022-07-10 04:38] LABS: Basophils % 0.3 %; Hematocrit 41.5 % (42.0-52.0); Hemoglobin 12.2 g/dL (11.7-16.6); Lymphocytes # 0.5 10^3/uL (0.8-4.8); Lymphocytes % 13.9 %; Mean Corpuscular HGB Conc 29.4 g/dL (30.0-36.0); Mean Corpuscular Hemoglobin 29.2 pg (28.0-34.0); Mean Corpuscular Volume 99.3 fl (80-94); Mean Platelet Volume 9.7 fL (7.4-10.4); Monocytes # 0.1 10^3/uL (0.2-0.9); Neutrophils # 3.01 10^3/uL (1.8-7.7); Neutrophils % 81.7 %; Nucleated Red Blood Cells % 0 %; Platelet Count 151 10^3/cmm (130-400); Red Blood Count 4.18 10^6/uL (4.1-5.3); Red Cell Distribution Width 12.8 % (12.1-15.1); White Blood Count 3.7 10^3/uL (4.0-10.0)
[2022-07-10 05:02] LABS: INR 1.01 (0.8-1.2)
[2022-07-10 05:12] LABS: Chol HDL Ratio 3.43 mg/dL (1.0-5.00); Cholesterol 168 mg/dL (0-200); HDL Cholesterol 49 mg/dL (60-100); LDL Cholesterol Calculated 102 mg/dL (50-129); LDL HDL Ratio 2.08 RATIO (0.00-3.22); Triglycerides 84 mg/dL (0-150)
[2022-07-10 05:13] LABS: Troponin 5 6HR 9.44 ng/L (0-15)
[2022-07-10 05:19] LABS: Thyroid Stimulating Hormone 0.41 uIU/mL (0.27-4.20)
[2022-07-10 05:30] LABS: Estmated Average Glucose 128; Hemoglobin A1C 6.1 % (4.0-6.0)
[2022-07-10 05:37] LABS: Troponin 5 2HR Delta -0.88 ABS# (0-10)
[2022-07-10 05:51] LABS: Alanine Aminotransferase 37 U/L (0-41); Albumin Level 3.5 g/dL (3.5-5.2); Alkaline Phosphatase 80 U/L (40-130); Anion Gap 13.4 (5-19); Aspartate Amino Transferase 24 U/L (0-40); Blood Urea Nitrogen 13 mg/dL (8-23); Calcium 8.6 mg/dL (8.5-10.5); Carbon Dioxide 30 mmol/L (22-29); Chloride 100 mmol/L (98-107); Globulin 2.9 g/dL (1.3-4.6); Glomerular Filtration Rate 84.4 mL/min (90-130); Glucose 162 mg/dL (65-115); Magnesium 1.9 mg/dL (1.7-2.3); Osmolality Calculated 292 mOsm/kg (285-295); Phosphorus 1.9 mg/dL (2.5-4.5); Potassium 4.4 mmol/L (3.5-5.1); Sodium 139 mmol/L (136-145); Total Bilirubin 0.2 mg/dL (0.15-1.2); Total Protein 6.4 g/dL (6.6-8.7)
[2022-07-10 06:38] LABS: Troponin 5 6HR Delta -2.56 ng/L (0-12)
[2022-07-10] MEDS: remdesivir 200 MG in sodium chloride 0.9% (100 ml) 60 ML 100 MG IV (08:03)
--- NOTE | 2022-07-10 09:18 | CT_ITS ---
WS: [id number] CTA OF THE CHEST WITH PULMONARY EMBOLISM PROTOCOL TECHNIQUE: High-resolution contrast enhanced CTA of the chest with coronal and sagittal reformatted i mages with pulmonary embolism protocol. MIP images are also reviewed. CLINICAL INFORMATION: evalute for PE COMPARISON: CTA March 02, 2022 DLP: 446.[address] scans at [facility] use at least one of these dose optimization techniques: automated e xposure control; mA and/or kV adjustment per patient size (includes targeted exams where dose is matc hed to clinical indication); or iterative reconstruction. FINDINGS: No focal consolidation or pleural fluid. Slight subsegmental atelectasis RIGHT lower lobe. Compressive atelectasis LEFT lower lobe medially with secretions in the LEFT lower lobe bronchi. Beam hardening artifact from spinal hardware degrades some images. Proximal main pulmonary arteries are n ormal. Segmental pulmonary arteries appear patent. Distal subsegmental pulmonary arteries not well ev aluated but no evidence of pulmonary embolus. Normal caliber thoracic aorta. Aortic calcification. Descending thoracic aorta is normal caliber. No mediastinal or hilar lymphadenopathy. Postoperative changes the GE junction. Moderate esophageal hiat al hernia. Adrenal glands are normal. Advanced thoracolumbar scoliosis convex RIGHT. Thoracolumbar dorsal fixation hardware. CT/CT angio chest PE protcl [id number] IMPRESSION: 1. No evidence of pulmonary embolus. 2. Compressive atelectasis in the LEFT lower lobe medially with secretions in the LEFT lower lobe bronchi. Slight subsegmental atelectasis RIGHT lower lobe. 3. Moderate esophageal hiatal hernia. Prior postoperative changes at the [facility]. 4. Advanced thoracolumbar scoliosis with dorsal fixation hardware.
[2022-07-10] MEDS: aspirin 81 mg EC Tablet PO (09:45)
[2022-07-10] MEDS: sennosides-docusate Tablet 1 TAB PO ×2 (09:45→18:15)
[2022-07-10] MEDS: ranolazine (12HR) 500 mg Tablet PO ×2 (09:45→18:15)
[2022-07-10] MEDS: acetaZOLAMIDE 250 mg Tablet PO (09:45)
[2022-07-10] MEDS: spironolactone 25 mg Tablet PO (09:45)
[2022-07-10] MEDS: potassium chloride ER 20 mEq Tablet PO ×2 (09:45→18:16)
--- NOTE | 2022-07-10 10:41 | P.PN_ITS ---
Subjective Subjective: Overnight labs and H&P reviewed. Patient brought down to 2 to 5 L on supplemental nasal cannula. Off BiPAP at this time. No new complaints. Noted COVID-positive, and started treatment with remdesivir steroids, added CRP and D-dimer with a.m. labs. Additionally ordered for CTA chest to evaluate for PE as a cause of acute on chronic hypoxic respiratory failure. Medications: Reviewed: Yes Vitals/I&O/Wt Last Vital Signs Temp 98.9 F 07/09/22 22:23 Pulse 65 07/10/22 09:30 Resp 18 07/10/22 09:30 BP 100/60 07/10/22 09:15 Pulse Ox 100 07/10/22 09:30 O2 Del Method 07/10/22 05:15 O2 Flow Rate 3 07/10/22 08:00 FiO2 35 07/09/22 21:30 07/09/22 07/10/22 07/10/22 22:59 06:59 14:59 Intake Total 50 / 50 368 / 418 100 / 100 Output Total 550 / 550 Balance 50 / 50 -182 / -132 100 / 100 Weight last 48 hrs Weight 104.961 kg Weight 107.955 kg Weight 107.955 kg Physical Exam Narrative: General: No acute distress, AO x3 HEENT: PERRLA, pupils bilaterally equal and reactive, pallors not present Chest: Normal vesicular breath sounds, no added sounds, equal good air entry bilaterally CVS: S1-S2 regular, no murmurs, no tachycardia, no gallops, no rubs Abdomen: Soft, nontender, no organomegaly, bowel sounds present Neuro: No focal deficits, no facial deformity, AO x3, power 5/5 in all limbs Data : 07/10/22 04:25 07/10/22 04:25 Micro: Microbiology 07/09/22 21:29 Blood Culture - Preliminary Blood SPECIMEN COLLECTED A&P Assessment and plan (1) Acute exacerbation of chronic obstructive airways disease: Status: Acute (2) Acute respiratory failure with hypoxia and hypercarbia: Status: Acute (3) CHF exacerbation: Status: Acute Plan Acute hypoxic hypercarbic respiratory failure -Likely to be multifactorial as brought on by COPD exacerbation, acute viral illness with COVID-19. -Remdisivir 200mg iv x 1 followed by 100mg iv daily Methylprednisolone 40 mg IV every 8 hours duoneb q6h, budesonide q12h scheduled nebulization empiric CTX and azithromycin to continue Flutter valve/spirometer at bedside trend inflammatory markers including CRP, D dimer CTA PE to evalaute for PE Also with COPD exacerbation likely from viral illness -Patient's family will bring in home AVAPS -Bumex 1 mg every 12 hours iv, with normal BNP, change diuresis to 2 mg p.o. daily. -Blood cultures, sputum cultures -Monitor respiratory status closely -Full code -Lovenox for DVT prophylaxis Attestations Medical Necessity Statement*: Needs ongoing admission for treatment of COVID- 19, acute on chronic COPD exacerbation with acute on chronic hypoxic respiratory failure. Can likely move out of ICU if remains off BiPAP during the day Critical Care Time: The high probability of a clinically significant, sudden o r life threatening deterioration of the patient's [respiratory] system(s) required my full and direct attention, intervention and personal management. The critical care time is as shown. This time is in addition to time spent performing any reported procedures but includes the following: [x] Data and vital sign review and interpretation [x] Patient assessment, examination and intervention [x] Documentation [x] Medication orders and management Critical Care Time (min): 45 Coding Level of Care Code Acute Buckle Strap Drum Operator for [facility] Fwd Diagnoses Acute exacerbation of chronic obstructive airways disease J44.1 Acute respiratory failure with hypoxia and hypercarbia J96.01; J96.02 CHF exacerbation I50.9
--- NOTE | 2022-07-10 12:40 | PC.CHAP ---
Pastoral Care Encounter/Spiritual Assessment Type of Contact [] Declined admissions specialist visit [] Patient/Family/Request visit [] Outpatient visit [] Follow-up visit [] Physician referral [] Code/Alert [x] Routine visit [] Staff referral [] Actively dying [x] Patient sleeping [] Family support [] [] Out of room [] Palliative care [] [] Receiving care in room [] Pre-surgical visit [] Trauma [] Long length of stay [x] ICU visit [] Other: Relational/Emotional Strength [] Patient feels connected with others/family/visitors/staff [] Distress [] Loneliness/isolation [] Abandonment Spirituality of Patient [] Person of Adela [] Attends Religious of their Adela [] Believes in Prayer [] Reads Bible or Rastafari materials [] There are Spiritual issues to be addressed Photographic Process Screen Maker Interventions [x] Prayer [] Active listening [] Non-anxious presence [] Spiritual/emotional support [] Crisis/trauma care [] Spiritual counseling [] Bereavement support [] Provided bereavement packet [] Provided Bible/devotional materials [] Provided toy/stuffed animal, coloring book to patient or family member [] Provided Communion [] Anointing/[place] [] Salvation [x] Completed spiritual assessment [] Other: Impact on Illness or Injury [] Angry [] Fearful [] Anxious [] Often cries [] Exhaustion [] Unable to work [] Unable to attend zoroastrianism [] Unable to walk/stand [] Unable to read [] Unable to drive [] Unable to eat/drink [] Unable to sleep [] Unable to be with family [] Patient intubated [] Other: Summary Time spent with patient
[2022-07-10] MEDS: iohexol 350 mg/mL 100 mL Btl IV (13:14)
[2022-07-10] MEDS: ipratropium-albuterol 3 mL Neb INHALATION ×2 (16:25→19:52)
[2022-07-10] MEDS: cefTRIAXone 1,000 MG in sodium chloride 0.9% (plus) 50 ML 100 MG IV (16:43)
[2022-07-10] MEDS: trazodone 100 mg Tablet PO (20:01)
[2022-07-10] MEDS: atorvastatin 40 mg Tablet PO (20:01)
[2022-07-10] MEDS: pantoprazole 40 mg SDV IVP (22:30)
[2022-07-10] MEDS: enoxaparin 40 mg/0.4 mL Syringe SUBCUT (22:30)
[2022-07-10] MEDS: azithromycin 500 MG in sodium chloride 0.9% 250 ML 250 MG IV (22:31)
[2022-07-11] VITALS (37 sets, daily range): BP systolic 97–144; BP diastolic 49–76; PULSE 49–107; RESP 5–28; TEMP 36.2–36.6; O2SAT 92–100
[2022-07-11] MEDS: ipratropium-albuterol 3 mL Neb INHALATION ×4 (02:41→20:29)
[2022-07-11 05:37] LABS: Hematocrit 38.2 % (42.0-52.0); Hemoglobin 11.3 g/dL (11.7-16.6); Lymphocytes # 0.6 10^3/uL (0.8-4.8); Lymphocytes % 9.6 %; Mean Corpuscular HGB Conc 29.6 g/dL (30.0-36.0); Mean Corpuscular Hemoglobin 29.4 pg (28.0-34.0); Mean Corpuscular Volume 99.2 fl (80-94); Mean Platelet Volume 9.9 fL (7.4-10.4); Monocytes # 0.4 10^3/uL (0.2-0.9); Monocytes % 5.9 %; Neutrophils # 5.51 10^3/uL (1.8-7.7); Nucleated Red Blood Cells % 0 %; Platelet Count 158 10^3/cmm (130-400); Red Blood Count 3.85 10^6/uL (4.1-5.3); Red Cell Distribution Width 12.9 % (12.1-15.1); White Blood Count 6.6 10^3/uL (4.0-10.0)
[2022-07-11 05:54] LABS: Alanine Aminotransferase 30 U/L (0-41); Albumin Level 3.4 g/dL (3.5-5.2); Alkaline Phosphatase 73 U/L (40-130); Anion Gap 10.5 (5-19); Aspartate Amino Transferase 17 U/L (0-40); Blood Urea Nitrogen 17 mg/dL (8-23); C Reactive Protein 11.4 mg/L (0.0-4.9); Calcium 8.8 mg/dL (8.5-10.5); Carbon Dioxide 32 mmol/L (22-29); Chloride 103 mmol/L (98-107); Globulin 2.4 g/dL (1.3-4.6); Glomerular Filtration Rate 84.4 mL/min (90-130); Glucose 182 mg/dL (65-115); Magnesium 1.9 mg/dL (1.7-2.3); Osmolality Calculated 298 mOsm/kg (285-295); Potassium 4.5 mmol/L (3.5-5.1); Sodium 141 mmol/L (136-145); Total Bilirubin 0.2 mg/dL (0.15-1.2); Total Protein 5.8 g/dL (6.6-8.7)
[2022-07-11] MEDS: acetaZOLAMIDE 250 mg Tablet PO (10:09)
[2022-07-11] MEDS: aspirin 81 mg EC Tablet PO (10:09)
[2022-07-11] MEDS: spironolactone 25 mg Tablet PO (10:10)
[2022-07-11] MEDS: ranolazine (12HR) 500 mg Tablet PO ×2 (10:10→17:35)
[2022-07-11] MEDS: potassium chloride ER 20 mEq Tablet PO ×2 (10:10→17:35)
[2022-07-11] MEDS: sennosides-docusate Tablet 1 TAB PO ×2 (10:10→17:35)
[2022-07-11] MEDS: remdesivir 100 MG in sodium chloride 0.9% (100 ml) 80 ML IV (10:11)
[2022-07-11] MEDS: cefTRIAXone 1,000 MG in sodium chloride 0.9% (plus) 50 ML 100 MG IV (17:08)
[2022-07-11] MEDS: atorvastatin 40 mg Tablet PO (21:06)
[2022-07-11] MEDS: trazodone 100 mg Tablet PO (21:06)
--- NOTE | 2022-07-11 22:23 | P.PN_ITS ---
Subjective Subjective: Used home AVAPS overnight. States he feels his breathing is improving. on 4lpm this morning at exam. Stable LE swelling. No chest pain Medications: Reviewed: Yes Vitals/I&O/Wt Last Vital Signs Temp 97.2 F L 07/11/22 16:00 Pulse 87 07/11/22 20:37 Resp 16 07/11/22 20:37 BP 101/63 07/11/22 16:30 Pulse Ox 96 07/11/22 20:37 O2 Del Method 07/11/22 20:37 O2 Flow Rate 2 07/11/22 20:37 FiO2 35 07/11/22 18:00 07/11/22 07/11/22 07/11/22 06:59 14:59 22:59 Intake Total 450 / 818 340 / 340 240 / 580 Output Total 225 / 1800 460 / 460 200 / 660 Balance 225 / -982 -120 / -120 40 / -80 Weight last 48 hrs Weight 104.961 kg Physical Exam Narrative: General: No acute distress, AO x3 HEENT: PERRLA, pupils bilaterally equal and reactive, pallors not present Chest: Normal vesicular breath sounds, no added sounds, equal good air entry bilaterally CVS: S1-S2 regular, no murmurs, no tachycardia, no gallops, no rubs Abdomen: Soft, nontender, no organomegaly, bowel sounds present Neuro: No focal deficits, no facial deformity, AO x3, power 5/5 in all limbs EXT: B/L LE edema Data : 07/11/22 05:24 07/11/22 05:24 Micro: Microbiology 07/09/22 23:53 Gram Stain - Final Sputum - Expectorated Sputum Sputum Culture - Preliminary 07/09/22 21:29 Blood Culture - Preliminary Blood NEGATIVE TO DATE A&P Assessment and plan (1) Acute exacerbation of chronic obstructive airways disease: Status: Acute (2) Acute respiratory failure with hypoxia and hypercarbia: Status: Acute (3) CHF exacerbation: Status: Acute (4) COVID-19: Status: Acute Plan Acute hypoxic hypercarbic respiratory failure -Likely to be multifactorial as brought on by COPD exacerbation, acute viral illness with COVID-19. -Remdisivir 200mg iv x 1 followed by 100mg iv daily Methylprednisolone 40 mg IV every 8 hours duoneb q6h, budesonide q12h scheduled nebulization empiric CTX and azithromycin to continue Flutter valve/spirometer at bedside trend inflammatory markers including CRP, D dimer CTA PE negative for PE Also with COPD exacerbation likely from viral illness -Patient's family will bring in home AVAPS -Bumex 1 mg every 12 hours iv today given increased LE swelling on exam -Blood cultures, sputum cultures -Monitor respiratory status closely -Full code -Lovenox for DVT prophylaxis Attestations Medical Necessity Statement*: transfer to med/surg Coding Level of Care Code Acute Superintendent Operating for g Fwd Diagnoses Acute exacerbation of chronic obstructive airways disease J44.1 Acute respiratory failure with hypoxia and hypercarbia J96.01; J96.02 CHF exacerbation I50.9 COVID-19 U07.1
[2022-07-11] MEDS: pantoprazole 40 mg SDV IVP (22:34)
[2022-07-11] MEDS: bumetanide 0.25 mg/mL SDV 10 mL 1 MG IVP (22:37)
[2022-07-11] MEDS: enoxaparin 40 mg/0.4 mL Syringe SUBCUT (22:38)
[2022-07-11] MEDS: azithromycin 500 MG in sodium chloride 0.9% 250 ML 250 MG IV (22:38)
[2022-07-12] VITALS (15 sets, daily range): BP systolic 89–119; BP diastolic 56–67; PULSE 0–85; RESP 16–22; TEMP 36.1–36.9; O2SAT 84–99
[2022-07-12] MEDS: ipratropium-albuterol 3 mL Neb INHALATION ×3 (02:37→14:00)
--- NOTE | 2022-07-12 03:26 | PC.NURSE ---
Stable report called to STEFFEN Kapadia for patient transferring from ICU 4 to [facility].
[2022-07-12 05:44] LABS: Hematocrit 37.8 % (42.0-52.0); Hemoglobin 11.1 g/dL (11.7-16.6); Lymphocytes # 0.7 10^3/uL (0.8-4.8); Lymphocytes % 8.3 %; Mean Corpuscular HGB Conc 29.4 g/dL (30.0-36.0); Mean Corpuscular Hemoglobin 28.7 pg (28.0-34.0); Mean Corpuscular Volume 97.7 fl (80-94); Monocytes # 0.2 10^3/uL (0.2-0.9); Monocytes % 2.8 %; Neutrophils # 7.26 10^3/uL (1.8-7.7); Neutrophils % 88.3 %; Nucleated Red Blood Cells % 0 %; Platelet Count 161 10^3/cmm (130-400); Red Blood Count 3.87 10^6/uL (4.1-5.3); Red Cell Distribution Width 13.1 % (12.1-15.1); White Blood Count 8.2 10^3/uL (4.0-10.0)
[2022-07-12 06:03] LABS: Alanine Aminotransferase 27 U/L (0-41); Albumin Level 3.1 g/dL (3.5-5.2); Alkaline Phosphatase 68 U/L (40-130); Anion Gap 10.1 (5-19); Aspartate Amino Transferase 14 U/L (0-40); Blood Urea Nitrogen 20 mg/dL (8-23); Calcium 8.6 mg/dL (8.5-10.5); Carbon Dioxide 31 mmol/L (22-29); Chloride 101 mmol/L (98-107); Globulin 3.3 g/dL (1.3-4.6); Glomerular Filtration Rate 96.7 mL/min (90-130); Glucose 180 mg/dL (65-115); Magnesium 1.8 mg/dL (1.7-2.3); Osmolality Calculated 293 mOsm/kg (285-295); Potassium 4.1 mmol/L (3.5-5.1); Sodium 138 mmol/L (136-145); Total Bilirubin 0.2 mg/dL (0.15-1.2); Total Protein 6.4 g/dL (6.6-8.7)
--- NOTE | 2022-07-12 08:24 | PC.SOCIAL ---
IMM Update pg 2 of IMM updated and reviewed w/ patients via phone. Offered to provide # She will call back if she would like it. Copy in chart dated and initialed.
[2022-07-12] MEDS: remdesivir 100 MG in sodium chloride 0.9% (100 ml) 80 ML IV (09:27)
[2022-07-12] MEDS: potassium chloride ER 20 mEq Tablet PO (09:28)
[2022-07-12] MEDS: acetaZOLAMIDE 250 mg Tablet PO (09:28)
[2022-07-12] MEDS: spironolactone 25 mg Tablet PO (09:28)
[2022-07-12] MEDS: aspirin 81 mg EC Tablet PO (09:28)
[2022-07-12] MEDS: sennosides-docusate Tablet 1 TAB PO (09:28)
[2022-07-12] MEDS: ranolazine (12HR) 500 mg Tablet PO (09:29)
--- NOTE | 2022-07-12 14:34 | PM.DCS ---
Discharge Providers Date of Admission: 07/09/22 19:36 Date of Discharge: July 12, 2022 Attending Provider at Admission: Marcos Aaron MD Attending Provider at Discharge: Jennifer Cerda MD Primary Care Provider: Saji York Diagnoses at Discharge Discharge Diagnosis (1) Acute exacerbation of chronic obstructive airways disease: Status: Acute (2) Acute respiratory failure with hypoxia and hypercarbia: Status: Acute (3) CHF exacerbation: Status: Acute (4) COVID-19: Status: Acute Reason for Visit Reason for Visit: SOB Brief History: ?67 year old male with a past medical tree of COPD, chronic hypercarbic respiratory failure, on home AVAPS, morbid obesity, CAD, diastolic CHF, CELESTE, who presents to [facility] due to increased shortness of breath, increased productive cough, fatigue, malaise. he is having productive cough, yellow-green sputum, he reports low-grade fevers Hospital Course Hospital Course Patient was admitted to the hospital for acute on chronic hypoxic hypercapnic respiratory failure. He tested positive for COVID-19. Overall impression was that of a COPD exacerbation brought on by acute viral illness, with some contribution also by diastolic CHF. Patient had recently been placed on Bumex and acetazolamide for diuresis. He remained on his baseline oxygen requirement. He was treated with remdesivir, IV steroids, IV Bumex and empiric antibiotic coverage with Rocephin and azithromycin. He required BiPAP on the night of admission, however thereafter has only used his home AVAPS at nighttime use. Today he feels like he is back to his baseline. His CTA was negative for PE. Compressive atelectasis was seen in the left lower lobe. No other gross consolidation or signs of pneumonitis were noted. He is being discharged today in a stable to improved condition in a background of severe chronic illness. He is eager to return home. Physical Exam Narrative: General: No acute distress, AO x3 HEENT: PERRLA, pupils bilaterally equal and reactive, pallors not present Chest: Clear to auscultation in most lung zones. Overall patient has a poor inspiratory effort due to morbid obesity and restrictive effect from the same. CVS: S1-S2 regular, no murmurs, no tachycardia, no gallops, no rubs Abdomen: Soft, nontender, no organomegaly, bowel sounds present Neuro: No focal deficits, no facial deformity, AO x3, power 5/5 in all limbs Extremities: Bilateral lower extremity edema pitting Discharge Data Studies Completed and Pending Completed Studies During Hospitalization Category Date Time Status CTA PE [CT angio chest PE protcl [id number]] Routine Cat Scan 07/10/22 09:18 Completed XR chest 2V* [id number] Stat Exams 07/09/22 16:21 Completed Pending at discharge Category Date Time Status Blood Culture Stat Lab 07/09/22 20:06 Results Radiology Impressions Chest X-Ray 07/09/22 16:21 IMPRESSION: 1. Stable cardiomegaly. 2. ADDENDUM: 07/09/22 [id number] Impression: 2. Slight increased [id number] left basilar atelectasis and/or infiltrate and/or effusion. Chest CTA 07/10/22 09:18 IMPRESSION: 1. No evidence of pulmonary embolus. 2. Compressive atelectasis in the LEFT lower lobe medially with secretions in the LEFT lower lobe bronchi. Slight subsegmental atelectasis RIGHT lower lobe. 3. Moderate esophageal hiatal hernia. Prior postoperative changes at the GE junction. 4. Advanced thoracolumbar scoliosis with dorsal fixation hardware. Laboratory Results WBC 8.2 10^3/uL (4.0-10.0) 07/12/22 05:10 RBC 3.87 10^6/uL (4.1-5.3) L 07/12/22 05:10 Hgb 11.1 g/dL (11.7-16.6) L 07/12/22 05:10 Hct 37.8 % (42.0-52.0) L 07/12/22 05:10 MCV 97.7 fl (80-94) H 07/12/22 05:10 MCH 28.7 pg (28.0-34.0) 07/12/22 05:10 MCHC 29.4 g/dL (30.0-36.0) L 07/12/22 05:10 RDW 13.1 % (12.1-15.1) 07/12/22 05:10 Plt Count 161 10^3/cmm (130-400) 07/12/22 05:10 MPV 10.0 fL (7.4-10.4) 07/12/22 05:10 Neut % (Auto) 88.3 % 07/12/22 05:10 Lymph % (Auto) 8.3 % 07/12/22 05:10 [place] % (Auto) 2.8 % 07/12/22 05:10 Eos % (Auto) 0.0 % 07/12/22 05:10 Baso % (Auto) 0.0 % 07/12/22 05:10 Neut # (Auto) 7.26 10^3/uL (1.8-7.7) 07/12/22 05:10 Lymph # (Auto) 0.7 10^3/uL (0.8-4.8) L 07/12/22 05:10 [place] # (Auto) 0.2 10^3/uL (0.2-0.9) 07/12/22 05:10 Eos # (Auto) 0.0 10^3/uL (0.0-0.8) 07/12/22 05:10 Baso # (Auto) 0.0 10^3/uL (0.0-0.1) 07/12/22 05:10 Nucleated RBC % (auto) 0 % 07/12/22 05:10 Nucleated RBCs # 0.0 /100WBC 07/12/22 05:10 PT 13.60 SECONDS (12.1-14.9) 07/10/22 04:25 INR 1.01 (0.8-1.2) 07/10/22 04:25 D-Dimer 1.20 ug/mIFEU (0-0.59) H 07/11/22 05:24 Specimen Type Venous 07/09/22 18:43 Sample Site Iv 07/09/22 18:43 Humberto Test N/a 07/09/22 18:43 VBG pH 7.26 (7.32-7.42) L 07/09/22 18:43 VBG pCO2 73.4 mmHg (41-51) H* 07/09/22 18:43 VBG pO2 40.4 mmHg (25-40) H 07/09/22 18:43 VBG HCO3 32.5 mmol/L (24-28) H 07/09/22 18:43 VBG Base Excess 3.6 mmol/L (-3.0-3.0) H 07/09/22 18:43 VBG Hematocrit 35.1 % (42-52) L 07/09/22 18:43 O2 Delivery Device 07/09/22 18:43 O2 Liters/Min 4.0 % 07/09/22 18:43 Supervisor Adult Education ID Cak 07/09/22 18:43 Sodium 138 mmol/L (136-145) 07/12/22 05:10 Potassium 4.1 mmol/L (3.5-5.1) 07/12/22 05:10 Chloride 101 mmol/L (98-107) 07/12/22 05:10 Carbon Dioxide 31 mmol/L (22-29) H 07/12/22 05:10 Anion Gap 10.1 (5-19) 07/12/22 05:10 BUN 20 mg/dL (8-23) 07/12/22 05:10 Creatinine 0.8 mg/dL (0.7-1.2) 07/12/22 05:10 GFR Calculation 96.7 mL/min (90-130) 07/12/22 05:10 Glucose 180 mg/dL (65-115) H 07/12/22 05:10 Estimat Average Glucose 128 07/10/22 04:25 Hemoglobin A1c 6.1 % (4.0-6.0) H 07/10/22 04:25 Calculated Osmolality 293 mOsm/kg (285-295) 07/12/22 05:10 Lactate 0.7 mmol/L (0.5-2.2) 07/09/22 21:29 Calcium 8.6 mg/dL (8.5-10.5) 07/12/22 05:10 Phosphorus 1.9 mg/dL (2.5-4.5) L 07/10/22 04:25 Magnesium 1.8 mg/dL (1.7-2.3) 07/12/22 05:10 Total Bilirubin 0.2 mg/dL (0.15-1.2) 07/12/22 05:10 AST 14 U/L (0-40) 07/12/22 05:10 ALT 27 U/L (0-41) 07/12/22 05:10 Alkaline Phosphatase 68 U/L (40-130) 07/12/22 05:10 Troponin T Baseline 12 ng/L (0-15) 07/09/22 21:29 Troponin T 120 Minute 11.12 ng/L (0-15) 07/10/22 01:54 Delta Troponin T -0.88 ABS# (0-10) L 07/10/22 01:54 Troponin T Hi Sens 6Hr 9.44 ng/L (0-15) 07/10/22 04:25 Troponin T Hi Sens 6Hr Delta -2.56 ng/L (0-12) L 07/10/22 04:25 C-Reactive Protein 11.4 mg/L (0.0-4.9) H 07/11/22 05:24 NT-Pro-B Natriuret Pep 156 pg/mL (0-125) H 07/09/22 21:29 Total Protein 6.4 g/dL (6.6-8.7) L 07/12/22 05:10 Albumin 3.1 g/dL (3.5-5.2) L 07/12/22 05:10 Globulin 3.3 g/dL (1.3-4.6) 07/12/22 05:10 Triglycerides 84 mg/dL (0-150) 07/10/22 04:25 Cholesterol 168 mg/dL (0-200) 07/10/22 04:25 LDL Cholesterol, Calc 102 mg/dL (50-129) 07/10/22 04:25 HDL Cholesterol 49 mg/dL (60-100) L 07/10/22 04:25 LDL/HDL Ratio 2.08 RATIO (0.00-3.22) 07/10/22 04:25 Cholesterol/HDL Ratio 3.43 mg/dL (1.0-5.00) 07/10/22 04:25 Procalcitonin 0.13 ng/mL (0-0.5) 07/09/22 21:29 TSH 0.41 uIU/mL (0.27-4.20) 07/10/22 04:25 Coronavirus 229E (PCR) Not detected (NOT DETECT) 07/09/22 23:02 SARS-CoV-2 (PCR) Detected (NOT DETECT) A 07/09/22 23:02 Vitals Last Vital Signs Temp 98.0 F 07/12/22 12:00 Pulse 81 07/12/22 14:09 Resp 18 07/12/22 14:01 BP 89/56 07/12/22 12:00 Pulse Ox 98 07/12/22 14:01 O2 Del Method 07/12/22 14:01 O2 Flow Rate 2 07/12/22 14:01 FiO2 35 07/11/22 18:00 Discharge Plan Discharge Patient Disposition: Home Condition: Stable Prescriptions: New prednisone 50 mg tablet 50 mg PO DAILY Qty: 5 0RF azithromycin 250 mg tablet See Rx Instructions .ROUTE .COMPLEX Qty: 6 0RF Rx Instructions: For 250 mg dose pack: take 500 mg today (day 1), then 250 mg for 4 days (days 2-5) Continued prochlorperazine maleate 5 mg tablet 5 mg PO QAM trazodone 50 mg tablet 100 mg PO BEDTIME ranolazine 500 mg tablet extended release 12 hr 500 mg PO BID aspirin 81 mg tablet,delayed release (DR/EC) 81 mg PO DAILY Qty: 30 0RF hydrocodone-acetaminophen 5-325 mg tablet 1 tab PO Q6H PRN (Reason: Pain) cetirizine 5 mg Tablet 10 mg PO QAM acetazolamide 250 mg tablet 250 mg PO DAILY albuterol sulfate 2.5 mg /3 mL (0.083 %) Solution For Nebulization 2.5 mg INHALATION QID PRN (Reason: Shortness Of Breath) Stimulant Laxative Plus 8.6-50 mg tablet 1 tab PO QAM triamcinolone acetonide 0.1 % cream 1 applic TOPICAL BID PRN (Reason: Itching) fluticasone propionate 50 mcg/actuation spray,suspension 2 spray INTRANASAL DAILY potassium chloride 20 mEq tablet extended release 40 meq PO BID magnesium oxide 400 mg magnesium Tablet See Rx Instructions .ROUTE .COMPLEX Rx Instructions: 400mg po fri,fri,fri, and sun Changed bumetanide 2 mg tablet 2 mg PO DAILY Qty: 1 0RF Rx Instructions: 2mg by mouth every Friday, Friday, Friday and Friday Discharge Orders: Discharge Order (Routine); Ordered 07/12/22 Ordered By: Jennifer Cerda Referrals: Saji York [Primary Care Provider] - 2 weeks Discharge Diet: Advance as tolerated Discharge Activity: Resume usual activity Patient Instructions: COPD (Chronic Obstructive Pulmonary Disease) (ED), Opioid Safety Discharge Attestations Time Spent in Discharge Care*: greater than 30 min Status at Discharge: Cognitive status at discharge: cognitively intact, Behavioral status at discharge: cooperative, Quality Metrics Clinical Quality Measures [ No reported AMI, CVA or VTE this stay] Coding Level of Care Code Acute Chg FW DC note Diagnoses Acute exacerbation of chronic obstructive airways disease J44.1 Acute respiratory failure with hypoxia and hypercarbia J96.01; J96.02 CHF exacerbation I50.9 COVID-19 U07.1
--- NOTE | 2022-07-12 16:52 | PC.NURSE ---
Patient's family encouraged patient to stay in the hospital one more day. Patient insists he will be able to have a bowel movement at home and wants to go home today.
== END 2022-07-12 16:45 | disposition home or self-care (01) | DRG 177 ==
LOC: ER 19:07 → ICU 20:05 → MEDSURG 07-12 03:57
PROVIDERS: Admitting Provider Family Medicine; Emergency Provider Emergency Medicine; PCP Family Medicine; Visit Provider Student in an Organized Health Care Education/Training Program
DX: U07.1 COVID-19 (principal); I50.33 Acute on chronic diastolic (congestive) heart failure; J96.21 Acute and chronic respiratory failure with hypoxia; J96.22 Acute and chronic respiratory failure with hypercapnia; J44.1 Chronic obstructive pulmonary disease with (acute) exacerbation; Z68.42 Body mass index [BMI] 45.0-49.9, adult; Z99.89 Dependence on other enabling machines and devices; E66.01 Morbid (severe) obesity due to excess calories; I25.10 Atherosclerotic heart disease of native coronary artery without angina pectoris; G47.33 Obstructive sleep apnea (adult) (pediatric); Z28.310 Unvaccinated for COVID-19; Z87.891 Personal history of nicotine dependence; Z79.82 Long term (current) use of aspirin; Z79.51 Long term (current) use of inhaled steroids
CPT/HCPCS: 36415; 71046; 71275; 80053; 80061; 82803; 83036; 83605; 83735; 83880; 84100; 84145; 84443; 84484; 85025; 85378; 85610; 86140; 87040; 87070; 87205; 87635; 93005; 94640; 94660; 94664; 96365; 96372; 99285; C9113; J0456; J0696; J1650; J2920; J2930; J3490; J7050; J7512; Q9967

== ENCOUNTER 2022-08-02 18:21 | Emergency (ER) | payer MEDICARE, MEDICAID, SELFPAY ==
[2022-08-02 18:25] VITALS: BP 117/65; PULSE 91; RESP 16; TEMP 36.3; O2SAT 96
--- NOTE | 2022-08-02 19:48 | W.ED.FALL ---
HPI - Fall General: Chief Complaint: Fall Stated Complaint: Fell, Hit his head Time Seen by Provider: 08/02/22 19:48 History of Present Illness: 67-year-old male patient comes in today for evaluation after a fall this morning. Patient has some low back pain but has been able to ambulate with assistance. Patient has a history of chronic back pain with surgery, COPD, and peripheral edema. Patient appears nontoxic but chronically ill. Patient appears in mild pain. Review of Systems Const: Denies: fever(s) Musc: Reports: back pain Skin/Breast: Denies: rash PFSH ED PFSH: Medical History Acquired arm deformity Chronic hypercapnic respiratory failure Congestive heart failure COPD (chronic obstructive pulmonary disease) Fixation hardware in spine GERD (gastroesophageal reflux disease) Hyperglycemia Kyphoscoliosis Obesity CELESTE (obstructive sleep apnea) Restrictive lung disease due to kyphoscoliosis Scoliosis Tobacco chew use Surgical History H/O arthroscopy of shoulder History of appendectomy History of [place] fundoplication Hx of cholecystectomy Family History Father Cancer Social History Smoking and tobacco status: former smoker Quit status (tobacco): has quit using tobacco Year quit tobacco: 2010 Former quit date comment: 2ppd x 10 years Second hand smoke exposure: No Smoking risk assessment/counseling performed?: Yes Alcohol intake: never Lives independently: Yes Household members: spouse Housing: House Marital status: service: No Current occupational status: employed 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 Pets and animals: Yes History of recent travel: No Current gender identity: Male Physical Exam Const: COMMON NORMALS: alert HENMT: COMMON NORMALS: normocephalic HEAD & SCALP: normocephalic Neck/C-Spine: CERVICAL SPINE: No Cervical spine tenderness Resp: COMMON NORMALS: normal respiratory effort Cardio: COMMON NORMALS: regular rate and regular rhythm RATE: regular rate RHYTHM: regular rhythm GI: COMMON NORMALS: non-tender Back/Pelvis: THORACIC SPINE/UPPER BACK: Yes paraspinal muscle tenderness LUMBAR SPINE/LOWER BACK: Yes paraspinal muscle tenderness Extremity: COMMON NORMALS: full ROM Neuro: SENSORIUM/ORIENTATION: Yes alert Skin: COMMON NORMALS: turgor normal GENERAL SKIN EXAM: turgor normal Course Vital Signs: Vital signs: Vital Signs Temperature 97.4 F L 08/02/22 18:25 Pulse Rate 91 08/02/22 18:25 Respiratory Rate 16 08/02/22 18:25 Blood Pressure 117/65 08/02/22 18:25 Pulse Oximetry 96 08/02/22 18:25 Oxygen Delivery Me thod 08/02/22 18:25 Oxygen Flow Rate 2 08/02/22 18:25 MDM - Fall Medical Decision Making 67-year-old male patient comes in today after slipping and falling this morning when getting up out of his chair. Patient appears in no acute distress. Patient COVID due to some mild low back pain. On exam patient has muscle tenderness of the low back but no point spinal tenderness. Patient is at baseline. Patient does have chronic respiratory and peripheral edema. Vital signs are normal. Differential diagnosis includes contusions, strain, fracture. No signs of significant injury is noted. Patient be given 10 tablets of hydrocodone for his pain for the next couple of days. Patient was recommended to follow-up with primary care or return to ER for worsening symptoms. Patient and family both reported understanding, and agreed with plan. Discharge Plan Discharge Patient Disposition: Home Clinical Impression: Fall Qualifiers: Encounter type: initial encounter Qualified Code(s): W19.XXXA - Unspecified fall, initial encounter Back pain Qualifiers: Back pain location: back pain in unspecified location Chronicity: chronic Back pain laterality: unspecified Qualified Code(s): M54.9 - Dorsalgia, unspecified Condition: Stable Prescriptions: Continued hydrocodone-acetaminophen 5-325 mg tablet 1 tab PO Q6H PRN (Reason: Pain) Qty: 10 0RF No Action prochlorperazine maleate 5 mg tablet 5 mg PO QAM trazodone 50 mg tablet 100 mg PO BEDTIME ranolazine 500 mg tablet extended release 12 hr 500 mg PO BID aspirin 81 mg tablet,delayed release (DR/EC) 81 mg PO DAILY Qty: 30 0RF cetirizine 5 mg Tablet 10 mg PO QAM prednisone 50 mg tablet 50 mg PO DAILY Qty: 5 0RF azithromycin 250 mg tablet See Rx Instructions .ROUTE .COMPLEX Qty: 6 0RF Rx Instructions: For 250 mg dose pack: take 500 mg today (day 1), then 250 mg for 4 days (days 2-5) acetazolamide 250 mg tablet 250 mg PO DAILY albuterol sulfate 2.5 mg /3 mL (0.083 %) Solution For Nebulization 2.5 mg INHALATION QID PRN (Reason: Shortness Of Breath) Stimulant Laxative Plus 8.6-50 mg tablet 1 tab PO QAM triamcinolone acetonide 0.1 % cream 1 applic TOPICAL BID PRN (Reason: Itching) fluticasone propionate 50 mcg/actuation spray,suspension 2 spray INTRANASAL DAILY potassium chloride 20 mEq tablet extended release 40 meq PO BID magnesium oxide 400 mg magnesium Tablet See Rx Instructions .ROUTE .COMPLEX Rx Instructions: 400mg po fri,fri,fri, and fri bumetanide 2 mg tablet 2 mg PO DAILY Qty: 1 0RF Rx Instructions: 2mg by mouth every Friday, Friday, Friday and Friday Discharge Orders: Discharge ED (Routine); Ordered 08/02/22 Ordered By: Andrea Kaur Referrals: Saji York [Primary Care Provider] - Discharge Diet: Usual diet Discharge Activity: Increase activity as tolerated Patient Instructions: Opioid Safety, Pain Management Activity Restrictions/Additional Instructions: Follow-up with primary care at scheduled appointments. Use acetaminophen as needed to control pain. Use hydrocodone for severe pain. Return to ER for increased difficulty breathing, severe pain, or new concerns. Coding Level of Care Code ED Workers Compensation Consultant for [facility]
[2022-08-02 20:00] VITALS: BP 120/71; PULSE 87; RESP 16; TEMP 36.3; O2SAT 96
[2022-08-02 20:12] VITALS: BP 120/71; PULSE 87; RESP 16; TEMP 36.3; O2SAT 96
[2022-08-02] MEDS: HYDROcodone-acetaminophen 5-325 mg Tablet 1 TAB PO (20:12)
== END 2022-08-02 20:14 | disposition home or self-care (01) ==
PROVIDERS: Emergency Provider Nurse Practitioner Family; PCP Family Medicine
DX: M54.9 Dorsalgia, unspecified (principal); W19.XXXA Unspecified fall, initial encounter
CPT/HCPCS: 99283

== ENCOUNTER 2022-12-29 13:57 | Emergency (ER) | payer MEDICARE, MEDICAID, SELFPAY ==
[2022-12-29 14:02] VITALS: BMI 41.0
[2022-12-29 14:04] VITALS: BP 111/56; PULSE 64; RESP 18; TEMP 36.8; O2SAT 96
--- NOTE | 2022-12-29 14:20 | W.ED.SKABFB ---
HPI - Skin/Abscess/Foreign Bdy General: Chief complaint: Skin/Abscess/Foreign Body Stated complaint: Knot on lower back Time Seen by Provider: 12/29/22 14:07 Source: patient Mode of arrival: wheelchair Limitations: no limitations History of Present Illness: 67-year-old male presents to the ER today for an infected lesion on his back. Patient reports he is noticed it coming up over the last week or so. He reports it started getting more red and tender. His significant other tried opening it this morning but was unable to get much out of it. He reports it is very tender as he sits in a wheelchair frequently and leans back on that part of his back. Patient denies any swelling of that area. Denies any fever or chills. He has never had this lesion looked at before. Review of Systems General: Reports: 10 or more systems reviewed and unremarkable except in HPI and below PFSH ED PFSH: Medical History Acquired arm deformity Chronic hypercapnic respiratory failure Congestive heart failure COPD (chronic obstructive pulmonary disease) Fixation hardware in spine GERD (gastroesophageal reflux disease) Hyperglycemia Kyphoscoliosis Obesity CELESTE (obstructive sleep apnea) Restrictive lung disease due to kyphoscoliosis Scoliosis Tobacco chew use Surgical History H/O arthroscopy of shoulder History of appendectomy History of [place] fundoplication Hx of cholecystectomy Family History Father Cancer Social History Smoking and tobacco status: former smoker Quit status (tobacco): has quit using tobacco Year quit tobacco: 2010 Former quit date comment: 2ppd x 10 years Second hand smoke exposure: No Smoking risk assessment/counseling performed?: Yes Alcohol intake: never Lives independently: Yes Household members: spouse Housing: House Marital status: service: No Current occupational status: employed 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 Pets and animals: Yes History of recent travel: No Current gender identity: Male Physical Exam Const: COMMON NORMALS: no acute distress, average body habitus, patient oriented x3, no limitations, alert and well nourished Resp: COMMON NORMALS: normal respiratory effort EFFORT & INSPECTION: Yes able to speak in complete sentences Cardio: COMMON NORMALS: regular rate and regular rhythm RATE: regular rate RHYTHM: regular rhythm Neuro: COMMON NORMALS: patient oriented x3 SENSORIUM/ORIENTATION: Yes alert Skin: NARRATIVE SKIN EXAM: Patient has a 1 cm x 1 cm lump on the right low back lateral to the spine. This has mild erythema surrounding it. It does appear to be open and draining a serous material however when squeezed a sebaceous thick white material came out. This is tender to palpation. Course ED course: Presents to the ER today for a lump in his low back. This has been worsening over the last week and is now red and tender. A family member tried to open it this morning however was unable to get much out of it. Patient reports it is very tender to sit back against his wheelchair with it. Vital Signs: Vital signs: Vital Signs Temperature 98.2 F 12/29/22 14:04 Pulse Rate 64 12/29/22 14:04 Respiratory Rate 18 12/29/22 14:04 Blood Pressure 111/56 12/29/22 14:04 Pulse Oximetry 96 12/29/22 14:04 Oxygen Delivery Me thod 12/29/22 14:04 MDM - Skin/Abscess/Foreign Bdy Medicial Decision Making On exam, patient appears to have an infected sebaceous cyst. It was open and draining however I did go ahead and squeeze some on and was able to get more of the thick, cheesy like discharge removed from it. It is tender. I am going to go ahead and start patient on Bactrim at this time. I recommend he take this and follow-up with PCP in 1 week. I would discuss with PCP possibly removing the entire sebaceous cyst to prevent this from getting infected in the future. Patient should also apply warm compress to draw any type of infection. Patient and family member verbalized understanding and are in agreement with the treatment plan. Critical Care Time Critical Care Time: Critical Care Time: No Discharge Plan Discharge Patient Disposition: Home Clinical Impression: Infected sebaceous cyst of skin Condition: Stable Prescriptions: New sulfamethoxazole-trimethoprim 800-160 mg tablet 1 tab PO BID 10 Days Qty: 20 0RF No Action prochlorperazine maleate 5 mg tablet 5 mg PO QAM trazodone 50 mg tablet 100 mg PO BEDTIME ranolazine 500 mg tablet extended release 12 hr 500 mg PO BID chlorthalidone 50 mg tablet 50 mg PO DAILY Qty: 90 1RF furosemide [Lasix] 80 mg tablet 80 mg PO DAILY Qty: 14 2RF aspirin 81 mg tablet,delayed release (DR/EC) 81 mg PO DAILY Qty: 30 0RF hydrocodone-acetaminophen 5-325 mg tablet 1 tab PO Q6H PRN (Reason: Pain) Qty: 10 0RF cetirizine 5 mg Tablet 10 mg PO QAM acetazolamide 250 mg tablet 250 mg PO DAILY albuterol sulfate 2.5 mg /3 mL (0.083 %) Solution For Nebulization 2.5 mg INHALATION QID PRN (Reason: Shortness Of Breath) Stimulant Laxative Plus 8.6-50 mg tablet 1 tab PO QAM triamcinolone acetonide 0.1 % cream 1 applic TOPICAL BID PRN (Reason: Itching) fluticasone propionate 50 mcg/actuation spray,suspension 2 spray INTRANASAL DAILY potassium chloride 20 mEq tablet extended release 40 meq PO BID magnesium oxide 400 mg magnesium Tablet See Rx Instructions .ROUTE .COMPLEX Rx Instructions: 400mg po mon,wed,fri, and sun Discharge Orders: Discharge ED (Routine); Ordered 12/29/22 Ordered By: Henrietta Aguilar Referrals: Saji York [Primary Care Provider] - Discharge Diet: Usual diet Discharge Activity: Resume usual activity Patient Instructions: Opioid Safety, Pain Management Activity Restrictions/Additional Instructions: Take antibiotics as prescribed. Place warm compress on lesion to draw out any infection. Follow-up with PCP in 1 week to discuss cyst removal. Return to the ER with any new or worsening symptoms. Coding Level of Care Code ED Specialty Finishing Utility Person for [facility]
== END 2022-12-29 14:33 | disposition home or self-care (01) ==
PROVIDERS: Emergency Provider Physician Assistant; PCP Family Medicine
DX: L72.3 Sebaceous cyst (principal); Z79.82 Long term (current) use of aspirin; Z87.891 Personal history of nicotine dependence; I50.9 Heart failure, unspecified; J44.9 Chronic obstructive pulmonary disease, unspecified
CPT/HCPCS: 87070; 87077; 87186; 99283

== ENCOUNTER → 2023-01-14 14:25 | Outpatient (BNVA) | payer MEDICARE, MEDICAID, SELFPAY | PROVIDERS: PCP Family Medicine; Visit Provider Internal Medicine Pulmonary Disease | DX: J44.9 Chronic obstructive pulmonary disease, unspecified (principal); J96.12 Chronic respiratory failure with hypercapnia; J98.4 Other disorders of lung; M41.9 Scoliosis, unspecified; I50.32 Chronic diastolic (congestive) heart failure; F17.220 Nicotine dependence, chewing tobacco, uncomplicated; Z99.81 Dependence on supplemental oxygen; G47.33 Obstructive sleep apnea (adult) (pediatric) | CPT/HCPCS: 99214 ==

== ENCOUNTER 2023-06-03 15:03 | Observation (INO) | payer MEDICARE, MEDICAID, SELFPAY ==
[2023-06-03] VITALS (11 sets, daily range): BP systolic 105–131; BP diastolic 55–78; PULSE 54–65; RESP 16–24; TEMP 36.7; O2SAT 95–100; BMI 42.5
--- NOTE | 2023-06-03 15:51 | XRR_ITS ---
PROCEDURE INFORMATION: Exam: XR Chest Exam date and time: 06/03/2023 3:55 PM Age: 68 years old Clinical indication: Cough and dyspnea; Prior surgery; Surgery date: 6+ months; Surgery type: Back; Additional info: Dyspnea/cough TECHNIQUE: Imaging protocol: Radiologic exam of the chest. Views: 1 view. COMPARISON: CR XR chest 2V* [id number] 07/09/2022 4:41 PM FINDINGS: Lungs: Unremarkable. No consolidation. Pleural spaces: Unremarkable. No pleural effusion. No pneumothorax. Heart/Mediastinum: Stable mild cardiomegaly. Bones/joints: There is an incompletely visualized spinal hetal extending from the lower cervical region into the lumbar spine. There is a severe primary dextroscoliosis. No acute findings. XR/XR chest 1V portable [id number] IMPRESSION: Nonacute findings.
--- NOTE | 2023-06-03 16:06 | W.ED.WEAKNES ---
HPI - Weakness General: Chief complaint: Weakness Stated complaint: SOB Time Seen by Provider: 06/03/23 15:51 Source: patient Mode of arrival: wheelchair History of Present Illness: 68-year-old male who presents to the emergency room with decreasing levels of consciousness. Patient has been drifting off while talking. Even at times he can finish his sentence and help fall asleep. He has had a little bit of increased mildly productive cough subjective report of a fever. Patient has a history of COPD and CHF he has not had any chest pain. No vomiting or diarrhea. Patient has increased work of breathing denies fever cough family numbers at the bedside MD Complaint: generalized weakness Duration: constant Location: generalized Severity: mild Relieving factors: none Exacerbating factors: none Associated symptoms: Reports confusion and short of breath; Denies chest pain, chills, melena, decreased appetite, diaphoresis, dysuria, easy bruising, fever(s), headache(s), myalgias, nausea, rash, syncope or vomiting Review of Systems Const: Reports: fatigue and malaise; Denies: fever(s), chills or diaphoresis ENMT: Denies: throat pain, ear or mastoid pain, nasal discharge or nasal congestion Card: Denies: chest pain or syncope Resp: Denies: dyspnea, productive cough or non-productive cough GI: Denies: abdominal pain, nausea, vomiting or melena : Denies: dysuria, urinary frequency or urinary urgency Skin/Breast: Denies: rash or pruritus Neuro: Reports: confusion; Denies: headache(s) Chaitanya/Lymph: Denies: easy bruising PFSH ED PFSH: Medical History Acquired arm deformity Chronic hypercapnic respiratory failure Congestive heart failure COPD (chronic obstructive pulmonary disease) Fixation hardware in spine GERD (gastroesophageal reflux disease) Hyperglycemia Kyphoscoliosis Obesity CELESTE (obstructive sleep apnea) Restrictive lung disease due to kyphoscoliosis Scoliosis Tobacco chew use Surgical History H/O arthroscopy of shoulder History of appendectomy History of [place] fundoplication Hx of cholecystectomy Family History Father Cancer Social History Smoking and tobacco status: former smoker Quit status (tobacco): has quit using tobacco Year quit tobacco: 2010 Former quit date comment: 2ppd x 10 years Second hand smoke exposure: No Smoking risk assessment/counseling performed?: Yes Alcohol intake: never Substance/Drug Use: never Lives independently: Yes Household members: spouse Housing: House Marital status: service: No Current occupational status: employed 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 Pets and animals: Yes Do you think of yourself as: Straight/Heterosexual Current gender identity: Male Physical Exam Const: GENERAL APPEARANCE: cooperative and comfortable ORIENTATION/CONSCIOUSNESS: Yes awake, Yes oriented to person, Yes oriented to place and Yes oriented to time HENMT: COMMON NORMALS: normocephalic, atraumatic and hearing grossly normal bilaterally HEAD & SCALP: normocephalic and atraumatic Resp: EFFORT & INSPECTION: Yes tachypneic and Yes respiratory distress AUSCULTATION: rhonchi and wheezes Cardio: COMMON NORMALS: regular rate, regular rhythm and No murmurs present (Cardio) RATE: regular rate RHYTHM: regular rhythm GI: COMMON NORMALS: Soft to palpation and No hepatosplenomegaly present AUSCULTATION: Yes normoactive bowel sounds PALPATION: Yes Soft to palpation, No Tenderness to palpation present (GI), No Guarding due to palpation present (GI) and Yes No hepatosplenomegaly present Extremity: COMMON NORMALS: normal to inspection, capillary refill normal, no clubbing, cyanosis or edema, no calf tenderness and no pedal edema Neuro: SENSORIUM/ORIENTATION: Yes oriented to person, Yes oriented to place and Yes oriented to time Skin: COMMON NORMALS: no rashes or lesions noted GENERAL SKIN EXAM: no rashes or lesions noted Course Vital Signs: Vital signs: Vital Signs Temperature 97.8 F 06/05/23 12:41 Pulse Rate 60 06/05/23 12:41 Respiratory Rate 16 06/05/23 12:41 Blood Pressure 123/72 06/05/23 12:41 Pulse Oximetry 96 06/05/23 12:41 Oxygen Delivery Me thod Room Air 06/05/23 11:45 Oxygen Flow Rate 2 06/05/23 11:06 Fraction of Inspir ed Oxygen 24 06/05/23 01:20 MDM - Weakness Medical Decision Making Acute hypercapnic respiratory failure improved on BiPAP we will admit discussed with hospitalist orders written that previous steroids and nebs offer minor improvement. Family at the bedside states they have been using AVAPS at night and during the day at times. Medical Records I reviewed the patient's medical records. Lab Data I reviewed the patient's lab results. 06/05/23 06:35 06/05/23 06:35 Radiology Impressions Chest X-Ray 06/03/23 15:51 IMPRESSION: Nonacute findings. Chest CTA 06/04/23 12:35 IMPRESSION: 1. No acute findings. 2. Chronic and incidental findings as above. Laboratory Results WBC 5.7 10^3/uL (4.0-10.0) 06/03/23 16:11 RBC 4.08 10^6/uL (4.1-5.3) L 06/03/23 16:11 Hgb 11.8 g/dL (11.7-16.6) 06/03/23 16:11 Hct 39.5 % (42.0-52.0) L 06/03/23 16:11 MCV 96.8 fl (80-94) H 06/03/23 16:11 MCH 28.9 pg (28.0-34.0) 06/03/23 16:11 MCHC 29.9 g/dL (30.0-36.0) L 06/03/23 16:11 RDW 12.7 % (12.1-15.1) 06/03/23 16:11 Plt Count 183 10^3/cmm (130-400) 06/03/23 16:11 MPV 9.1 fL (7.4-10.4) 06/03/23 16:11 Neut % (Auto) 55.4 % 06/03/23 16:11 Lymph % (Auto) 29.2 % 06/03/23 16:11 [place] % (Auto) 11.9 % 06/03/23 16:11 Eos % (Auto) 2.8 % 06/03/23 16:11 Baso % (Auto) 0.5 % 06/03/23 16:11 Neut # (Auto) 3.16 10^3/uL (1.8-7.7) 06/03/23 16:11 Lymph # (Auto) 1.7 10^3/uL (0.8-4.8) 06/03/23 16:11 [place] # (Auto) 0.7 10^3/uL (0.2-0.9) 06/03/23 16:11 Eos # (Auto) 0.2 10^3/uL (0.0-0.8) 06/03/23 16:11 Baso # (Auto) 0.0 10^3/uL (0.0-0.1) 06/03/23 16:11 Nucleated RBC % (auto) 0 % 06/03/23 16:11 Nucleated RBCs # 0.0 /100WBC 06/03/23 16:11 D-Dimer 1.55 ug/mIFEU (0-0.59) H 06/03/23 16:11 Specimen Type Arterial 06/03/23 17:43 Sample Site Radial, right 06/03/23 17:43 ABG pH 7.39 (7.35-7.45) 06/03/23 17:43 ABG pCO2 51.9 mmHg (35-45) H 06/03/23 17:43 ABG pO2 148.0 mmHg (80.0-100.0) H 06/03/23 17:43 ABG HCO3 31.5 mmol/L (22-26) H 06/03/23 17:43 ABG O2 Saturation 100.0 06/03/23 17:43 ABG Base Excess 5.4 mmol/L (-2.0-2.0) H 06/03/23 17:43 Humberto Test Pos 06/03/23 17:43 A-a O2 Gradient Not Reportable 06/03/23 17:43 Hematocrit 38.6 % (42-52) L 06/03/23 17:43 Hgb O2 Saturation 98.6 % (95-100) 06/03/23 17:43 Carboxyhemoglobin 1.1 %THgb (0.4-20.1) 06/03/23 17:43 Methemoglobin 0.3 % (0.4-1.5) L 06/03/23 17:43 Total Hemoglobin 12.6 g/dL (14-18) L 06/03/23 17:43 Sodium 142.0 mmol/L (131-143) 06/03/23 17:43 Potassium 4.1 mmol/L (3.5-5.0) 06/03/23 17:43 Glucose 108.0 mg/dL (70-115) 06/03/23 17:43 Ionized Calcium 1.2 mmol/L (1.1-1.4) 06/03/23 17:43 O2 Delivery Device Bipap 06/03/23 17:43 O2 Liters/Min 1.0 % 06/03/23 15:50 FiO2 28.0 % 06/03/23 17:43 Tidal Volume 0.45 06/03/23 17:43 PEEP 8.0 cmH20 06/03/23 17:43 Staff Development Manager ID Gd 06/03/23 17:43 Sodium 141 mmol/L (136-145) 06/03/23 16:11 Potassium 3.9 mmol/L (3.5-5.1) 06/03/23 16:11 Chloride 101 mmol/L (98-107) 06/03/23 16:11 Carbon Dioxide 34 mmol/L (22-29) H 06/03/23 16:11 Anion Gap 9.9 (5-19) 06/03/23 16:11 BUN 13 mg/dL (8-23) 06/03/23 16:11 Creatinine 0.9 mg/dL (0.7-1.2) 06/03/23 16:11 GFR Calculation 84.2 mL/min (90-130) L 06/03/23 16:11 Glucose 94 mg/dL (65-115) 06/03/23 16:11 Calculated Osmolality 292 mOsm/kg (285-295) 06/03/23 16:11 Calcium 8.9 mg/dL (8.5-10.5) 06/03/23 16:11 Total Bilirubin 0.2 mg/dL (0.15-1.2) 06/03/23 16:11 AST 11 U/L (0-40) 06/03/23 16:11 ALT 9 U/L (0-41) 06/03/23 16:11 Alkaline Phosphatase 93 U/L (40-130) 06/03/23 16:11 Troponin T Baseline 10 ng/L (0-15) 06/03/23 16:11 Total Protein 6.7 g/dL (6.6-8.7) 06/03/23 16:11 Albumin 3.7 g/dL (3.5-5.2) 06/03/23 16:11 Globulin 3.0 g/dL (1.3-4.6) 06/03/23 16:11 Urine Color Cancelled 06/03/23 17:45 Urine Appearance Cancelled 06/03/23 17:45 Urine pH Cancelled 06/03/23 17:45 Ur Specific [place] Cancelled 06/03/23 17:45 Urine Protein Cancelled 06/03/23 17:45 Urine Glucose (UA) Cancelled 06/03/23 17:45 Urine Ketones Cancelled 06/03/23 17:45 Urine Blood Cancelled 06/03/23 17:45 Urine Nitrate Cancelled 06/03/23 17:45 Urine Bilirubin Cancelled 06/03/23 17:45 Prot Sulfosalicylic Acd Cancelled 06/03/23 17:45 Urine Urobilinogen Cancelled 06/03/23 17:45 Ur Leukocyte Esterase Cancelled 06/03/23 17:45 Discharge Plan Discharge Patient Disposition: Admitted As Inpatient Admit Provider: Shharam Perdomo Clinical Impression: Acute respiratory failure with hypoxia and hypercarbia, Acute exacerbation of chronic obstructive airways disease Condition: Stable Discharge Diet: Cardiac Discharge Activity: Increase activity as tolerated, Oxygen as instructed and Cpap/Bipap as instructed Coding Level of Care Code ED Residence Hall Director for [facility]
[2023-06-03 16:09] LABS: ABG PCO2 70.7 mmHg (35-45); ABG PH Result 7.29 (7.35-7.45); Arterial Blood Gas Hematocrit 36.8 % (42-52); Base Excess ABG 5.1 mmol/L (-2.0-2.0); Blood Gas Allen Test Pos; Blood Gas Operator Identificat GD; Blood Gas Sample Site Radial, right; Blood Gas Sample Type Arterial; Carboxyhemoglobin 1.7 %THgb (0.4-20.1); HCO3 ABG 33.7 mmol/L (22-26); HGB O2 Sat 96.4 % (95-100); Ionized Calcium Level - ABG 1.3 mmol/L (1.1-1.4); Methemoglobin 0.6 % (0.4-1.5); Oxygen Device NC; Oxygen Saturation ABG 98.6; PO2 ABG 97.9 mmHg (80.0-100.0); Potassium Level - ABG 3.9 mmol/L (3.5-5.0)
[2023-06-03 16:20] LABS: Basophils % 0.5 %; Eosinophils # 0.2 10^3/uL (0.0-0.8); Eosinophils % 2.8 %; Hematocrit 39.5 % (42.0-52.0); Hemoglobin 11.8 g/dL (11.7-16.6); Lymphocytes # 1.7 10^3/uL (0.8-4.8); Lymphocytes % 29.2 %; Mean Corpuscular HGB Conc 29.9 g/dL (30.0-36.0); Mean Corpuscular Hemoglobin 28.9 pg (28.0-34.0); Mean Corpuscular Volume 96.8 fl (80-94); Mean Platelet Volume 9.1 fL (7.4-10.4); Monocytes # 0.7 10^3/uL (0.2-0.9); Monocytes % 11.9 %; Neutrophils # 3.16 10^3/uL (1.8-7.7); Neutrophils % 55.4 %; Nucleated Red Blood Cells % 0 %; Platelet Count 183 10^3/cmm (130-400); Red Blood Count 4.08 10^6/uL (4.1-5.3); Red Cell Distribution Width 12.7 % (12.1-15.1); White Blood Count 5.7 10^3/uL (4.0-10.0)
--- NOTE | 2023-06-03 16:25 | ECG_ITS ---
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 Measurements Intervals [place] Rate: 61 P: 49 HI: 168 QRS: 38 QRSD: 107 T: 39 QT: 440 QTc: 447 Interpretive Statements SINUS RHYTHM INCOMPLETE RIGHT BUNDLE BRANCH BLOCK [90+ ms QRS DURATION, TERMINAL R IN V1/V2, 40+ ms S IN I/aVL/V4/V5/V6] Compared to ECG 07/10/2022 04:00:29 Sinus bradycardia no longer present Prolonged QT interval no longer present Electronically Signed On 06-03-2023 20:11:07 CDT by Hilary Ho M.D. [id number]
[2023-06-03] MEDS: methylPREDNISolone sod succ 125 mg SDV IVP (16:34)
[2023-06-03] MEDS: ipratropium-albuterol 3 mL Neb INHALATION (16:35)
[2023-06-03 16:40] LABS: Alanine Aminotransferase 9 U/L (0-41); Albumin Level 3.7 g/dL (3.5-5.2); Alkaline Phosphatase 93 U/L (40-130); Anion Gap 9.9 (5-19); Aspartate Amino Transferase 11 U/L (0-40); Blood Urea Nitrogen 13 mg/dL (8-23); Calcium 8.9 mg/dL (8.5-10.5); Carbon Dioxide 34 mmol/L (22-29); Chloride 101 mmol/L (98-107); Glomerular Filtration Rate 84.2 mL/min (90-130); Glucose 94 mg/dL (65-115); Osmolality Calculated 292 mOsm/kg (285-295); Potassium 3.9 mmol/L (3.5-5.1); Sodium 141 mmol/L (136-145); Total Bilirubin 0.2 mg/dL (0.15-1.2); Total Protein 6.7 g/dL (6.6-8.7)
[2023-06-03 16:52] LABS: Troponin(5th) Baseline 10 ng/L (0-15)
--- NOTE | 2023-06-03 17:52 | ECG_ITS ---
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 Measurements Intervals [place] Rate: 57 P: 29 SC: 154 QRS: 29 QRSD: 94 T: 40 QT: 442 QTc: 433 Interpretive Statements SINUS BRADYCARDIA INCOMPLETE RIGHT BUNDLE BRANCH BLOCK [90+ ms QRS DURATION, TERMINAL R IN V1/V2, 40+ ms S IN I/aVL/V4/V5/V6] Compared to ECG 06/03/2023 16:25:53 Sinus rhythm no longer present Electronically Signed On 06-03-2023 20:14:41 CDT by Hilary Ho M.D. [email or web address]
[2023-06-03 17:55] LABS: ABG PCO2 51.9 mmHg (35-45); ABG PH Result 7.39 (7.35-7.45); Arterial Blood Gas Hematocrit 38.6 % (42-52); Base Excess ABG 5.4 mmol/L (-2.0-2.0); Blood Gas Allen Test Pos; Blood Gas Operator Identificat GD; Blood Gas Sample Site Radial, right; Blood Gas Sample Type Arterial; Blood Gas Tidal Volume 0.45; Carboxyhemoglobin 1.1 %THgb (0.4-20.1); HCO3 ABG 31.5 mmol/L (22-26); HGB O2 Sat 98.6 % (95-100); Ionized Calcium Level - ABG 1.2 mmol/L (1.1-1.4); Methemoglobin 0.3 % (0.4-1.5); Oxygen Device BIPAP; Potassium Level - ABG 4.1 mmol/L (3.5-5.0); Total Hemoglobin 12.6 g/dL (14-18)
[2023-06-03 18:39] LABS: Troponin 5 2HR 8.66 ng/L (0-15)
[2023-06-03 18:51] LABS: Troponin 5 2HR Delta -1.34 ABS# (0-10)
--- NOTE | 2023-06-03 19:42 | P.HP_ITS ---
Providers/Chief Complaint Admitting Physician: Shahram Perdomo Primary Care Provider: Ivelisse Ramos APN Chief Complaint: SOB History of Present Illness Pleasant 68-year-old gentleman with history of COPD, on nasal cannula oxygen at home during the day, at night oxygen is bled into AVAPS, follows with Dr. Gastelum, history of CHF, follows with Dr. Thomas in [place], had recent echo last Friday in [place], chronically dyspneic, however, dyspnea has been getting worse over the last several days, with productive cough of white sputum, but also edema of his thighs, lower abdomen, orthopnea. An episode of chest pain several days ago on the right side radiating to the right arm. Not in pain currently. In ER noted with respiratory acidosis, started on BiPAP support. Received a dose of Solu-Medrol, breathing treatment. Chest x-ray unremarkable. Initially he and family are reluctant to admit here, but he and family agreeable after discussion with ER physician. Review of Systems Const: Denies: fever(s), chills, body aches or malaise ENMT: Denies: throat pain Card: Denies: chest pain, edema, pre-syncope or dyspnea on exertion Resp: Denies: dyspnea, productive cough, change in phlegm color or hemoptysis GI: Denies: abdominal pain, nausea, vomiting, diarrhea, constipation, hematochezia or melena : Denies: flank pain, difficulty urinating, urinary frequency or hematuria Musc: Denies: back pain, joint swelling or joint redness Skin/Breast: Denies: rash or new lesions Neuro: Reports: confusion; Denies: headache(s) Medications/Allergies Home Medications Medication Instructions Recorded Confirmed Last Taken Type aspirin 81 mg tablet,delayed 81 mg PO DAILY #30 tabs 06/02/21 01/14/23 05/08/22 Rx release prochlorperazine maleate 5 mg 5 mg PO QAM 02/12/22 09/27/22 Unknown History tablet ranolazine 500 mg tablet,extended 500 mg PO BID 02/12/22 01/14/23 05/08/22 History release,12 hr trazodone 50 mg tablet 100 mg PO BEDTIME 02/12/22 01/14/23 05/07/22 History cetirizine 5 mg tablet 10 mg PO QAM 04/08/22 01/14/23 05/08/22 History acetazolamide 250 mg tablet 250 mg PO DAILY 07/10/22 09/27/22 Unknown History albuterol sulfate 2.5 mg/3 mL 2.5 mg inhalation QID PRN 07/10/22 09/27/22 Unknown History (0.083 %) solution for nebulization Shortness Of Breath fluticasone propionate 50 2 spray intranasal DAILY 07/10/22 09/27/22 Unknown History mcg/actuation nasal spray,suspension magnesium oxide See Rx Instructions .Route .COMPLEX 07/10/22 09/27/22 Unknown History potassium chloride 20 mEq 40 meq PO BID 07/10/22 01/14/23 Unknown History tablet,extended release sennosides 8.6 mg-docusate sodium 1 tab PO QAM 07/10/22 01/14/23 Unknown History 50 mg tablet (Stimulant Laxative Plus) triamcinolone acetonide 0.1 % 1 applic topical BID PRN Itching 07/10/22 09/27/22 Unknown History topical cream hydrocodone 5 mg-acetaminophen 325 1 tab PO Q6H PRN Pain #10 tabs 08/02/22 01/14/23 Unknown Rx mg tablet chlorthalidone 50 mg tablet 50 mg PO DAILY #90 tabs 09/27/22 01/14/23 Unknown Rx furosemide 80 mg tablet (Lasix) 80 mg PO DAILY #14 tabs 09/27/22 09/27/22 Unknown Rx cephalexin 250 mg capsule 250 mg PO BID 01/14/23 01/14/23 Unknown History Allergies Allergy/AdvReac Type Severity Reaction Status Date / Time codeine Allergy ALGY-Rash Verified 06/03/23 15:07 PFSH Acute PFSH: Medical History Acquired arm deformity Chronic hypercapnic respiratory failure Congestive heart failure COPD (chronic obstructive pulmonary disease) Fixation hardware in spine GERD (gastroesophageal reflux disease) Hyperglycemia Kyphoscoliosis Obesity CELESTE (obstructive sleep apnea) Restrictive lung disease due to kyphoscoliosis Scoliosis Tobacco chew use Surgical History H/O arthroscopy of shoulder History of appendectomy History of [place] fundoplication Hx of cholecystectomy Family History Father Cancer Social History Smoking and tobacco status: former smoker Quit status (tobacco): has quit using tobacco Year quit tobacco: 2010 Former quit date comment: 2ppd x 10 years Second hand smoke exposure: No Smoking risk assessment/counseling performed?: Yes Alcohol intake: never Substance/Drug Use: never Lives independently: Yes Household members: spouse Housing: House Marital status: service: No Current occupational status: employed 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 Const: COMMON NORMALS: patient oriented x3 and alert GENERAL APPEARANCE: c ooperative ORIENTATION/CONSCIOUSNESS: Yes awake HENMT: COMMON NORMALS: oropharynx normal Neck/C-Spine: COMMON NORMALS: no JVD Resp: AUSCULTATION: rhonchi, wheezes and diminished lung sounds Cardio: COMMON NORMALS: no JVD, regular rhythm, S1 normal heart sound present, S2 normal heart sound present and No murmurs present (Cardio) RHYTHM: regular rhythm HEART SOUNDS: S1 normal heart sound present and S2 normal heart sound present GI: COMMON NORMALS: Normal to inspection, nondistended, normoactive bowel sounds present, Soft to palpation and non-tender PALPATION: Yes Soft to palpation Extremity: COMMON NORMALS: no joint enlargement GENERAL: Yes edema (1+ up to thighs) Neuro: COMMON NORMALS: patient oriented x3 and moves all extremities SENSORIUM/ORIENTATION: Yes alert Skin: COMMON NORMALS: no rashes or lesions noted GENERAL SKIN EXAM: no rashes or lesions noted Data 06/03/23 16:11 06/03/23 16:11 A&P Assessment and plan (1) Acute respiratory failure with hypoxia and hypercarbia: Acute hypercapnic respiratory failure with respiratory acidosis, secondary to COPD exacerbation as well as acute CHF exacerbation. Treat as below. BiPAP support. RT assess and treat. Wean down as tolerating. Cardiac monitoring. ABG noted. We will check D-dimer as well. No pleuritic chest pain at the moment, no tachycardia, no unilateral lower extremity edema. For now VTE prophylaxis with Lovenox. At current time no sign of sepsis. Chest x-ray nonacute. He is afebrile, without leukocytosis. Follow-up CBC. (2) Acute exacerbation of chronic obstructive airways disease: Severe exacerbation of COPD with respiratory failure, dyspnea, productive cough At risk of progression, life-threatening deterioration, hypercapnic encephalopathy, other complications. Continue IV steroid treatment with Solu-Medrol, Rocephin 1 g every 24 hours IV. DuoNebs. RT assess and treat. Collect sputum culture. Viral respiratory panel are requested, noted negative. (3) CHF exacerbation: Acute exacerbation of suspected HFpEF based on prior echo back in 2021 with normal ejection fraction. Exclude acute ischemia given recent chest pain episode. Complete troponin EKG series. Monitor with telemetry. Lasix 80 mg IV for now twice daily. Monitor JOSH. Weights. At risk of electrolyte abnormality. Assess chemistry, magnesium. Monitor for arrhythmia. 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 Request medical records from [place]. (4) Goals of care, counseling/discussion: Discussing CODE STATUS with him with his family present in case of cardiopulmonary arrest he would not want CPR. However, in case of isolated progressive respiratory failure he would be okay with intubation and temporary mechanical ventilatory support. Plan GERD: PPI CELESTE: At home wears nightly AVAPS. Would benefit from continuing. Restrictive lung disease due to kyphoscoliosis Scoliosis Other medical problems noted List home medications. ER documentation reviewed. Discussed with ER physician. Attestations Medical Necessity Statement*: Requiring hospitalization for additional assessment management of acute respiratory failure with hypercapnia, respiratory acidosis, severe exacerbation of COPD, acute exacerbation of CHF. Diagnoses Acute respiratory failure with hypoxia and hypercarbia J96.01; J96.02 Acute exacerbation of chronic obstructive airways disease J44.1 CHF exacerbation I50.9 Goals of care, counseling/discussion Z71.89
[2023-06-03 20:26] LABS: Adenovirus Not Detected (NOT DETECT); Chlamydia Pneumoniae Not Detected (NOT DETECT); Coronavirus 229E,HKU1,NL63,OC4 Not Detected (NOT DETECT); Human Metapneumovirus Not Detected (NOT DETECT); Human Rhinovirus/Enterovirus Not Detected (NOT DETECT); Influenza A Not Detected (NOT DETECT); Influenza A H1 Not Detected (NOT DETECT); Influenza A H1-2009 Not Detected (NOT DETECT); Influenza A H3 Not Detected (NOT DETECT); Influenza B Not Detected (NOT DETECT); Mycoplasma Pneumoniae Not Detected (NOT DETECT); Parainfluenza Virus Type 1 Not Detected (NOT DETECT); Parainfluenza Virus Type 2 Not Detected (NOT DETECT); Parainfluenza Virus Type 3 Not Detected (NOT DETECT); Parainfluenza Virus Type 4 Not Detected (NOT DETECT); Respiratory Syncytial Virus A Not Detected (NOT DETECT); Respiratory Syncytial Virus B Not Detected (NOT DETECT); SARS-COV-2 Not Detected (NOT DETECT)
--- NOTE | 2023-06-03 21:52 | ECG_ITS ---
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 Measurements Intervals [place] Rate: 65 P: 28 NH: 165 QRS: 37 QRSD: 108 T: 44 QT: 442 QTc: 461 Interpretive Statements SINUS RHYTHM INCOMPLETE RIGHT BUNDLE BRANCH BLOCK [90+ ms QRS DURATION, TERMINAL R IN V1/V2, 40+ ms S IN I/aVL/V4/V5/V6] Compared to ECG 06/03/2023 19:14:10 Sinus bradycardia no longer present Electronically Signed On 06-04-2023 21:20:31 CDT by Chanda Anders M.D. [id number]
[2023-06-03] MEDS: enoxaparin 40 mg/0.4 mL Syringe SUBCUT (21:53)
[2023-06-03] MEDS: cefTRIAXone 1,000 MG in sodium chloride 0.9% (plus) 50 ML 100 MG IV (21:53)
[2023-06-03] MEDS: methylPREDNISolone sod succ 40 mg SDV IVP (21:54)
[2023-06-03] MEDS: FUROsemide 10 mg/mL SDV 10mL 80 MG IVP (21:54)
[2023-06-03] MEDS: water for injection-sterile 10 ML (22:03)
[2023-06-03 22:49] LABS: D Dimer 1.55 ug/mIFEU (0-0.59)
[2023-06-03 22:59] LABS: Troponin 5 6HR 6.02 ng/L (0-15)
[2023-06-03 23:13] LABS: Troponin 5 6HR Delta -3.98 ng/L (0-12)
[2023-06-04] VITALS (12 sets, daily range): BP systolic 109–131; BP diastolic 55–72; PULSE 60–101; RESP 15–21; TEMP 36.4–37.5; O2SAT 17–99
[2023-06-04] MEDS: ipratropium-albuterol 3 mL Neb INHALATION ×3 (03:04→13:37)
[2023-06-04] MEDS: methylPREDNISolone sod succ 40 mg SDV IVP (04:51)
[2023-06-04 05:12] LABS: Hemoglobin 12.4 g/dL (11.7-16.6); Lymphocytes # 0.6 10^3/uL (0.8-4.8); Lymphocytes % 9.9 %; Mean Corpuscular HGB Conc 30.2 g/dL (30.0-36.0); Mean Corpuscular Hemoglobin 28.5 pg (28.0-34.0); Mean Corpuscular Volume 94.3 fl (80-94); Mean Platelet Volume 9.3 fL (7.4-10.4); Monocytes # 0.1 10^3/uL (0.2-0.9); Monocytes % 0.8 %; Neutrophils # 5.77 10^3/uL (1.8-7.7); Neutrophils % 89.1 %; Nucleated Red Blood Cells % 0 %; Platelet Count 190 10^3/cmm (130-400); Red Blood Count 4.35 10^6/uL (4.1-5.3); Red Cell Distribution Width 12.5 % (12.1-15.1); White Blood Count 6.5 10^3/uL (4.0-10.0)
[2023-06-04 05:58] LABS: Alanine Aminotransferase 9 U/L (0-41); Albumin Level 4.1 g/dL (3.5-5.2); Alkaline Phosphatase 104 U/L (40-130); Anion Gap 16.1 (5-19); Aspartate Amino Transferase 11 U/L (0-40); Blood Urea Nitrogen 17 mg/dL (8-23); Calcium 9.2 mg/dL (8.5-10.5); Carbon Dioxide 28 mmol/L (22-29); Chloride 100 mmol/L (98-107); Globulin 2.6 g/dL (1.3-4.6); Glomerular Filtration Rate 60.4 mL/min (90-130); Glucose 230 mg/dL (65-115); Magnesium 1.9 mg/dL (1.7-2.3); Osmolality Calculated 301 mOsm/kg (285-295); Potassium 3.1 mmol/L (3.5-5.1); Sodium 141 mmol/L (136-145); Total Bilirubin 0.2 mg/dL (0.15-1.2); Total Protein 6.7 g/dL (6.6-8.7)
--- NOTE | 2023-06-04 07:15 | PC.NURSE ---
Report received from Steffi BOURNE at this time.
--- NOTE | 2023-06-04 09:03 | USCV_ITS ---
Sukumar Bangura Age: 68 Gender: M : 1955 Exam Date: 06/04/2023 10:07 Ordering Phys: Shahram Perdomo MD Technologist: [place] [facility] [place]: PROCEDURES: The venous duplex Doppler examination of both lower extremities was performed in the standard fashion. In addition, the posterior tibial and peroneal trunk were evaluated. The following venous structures were evaluated: common femoral vein, profunda vein, proximal portion of the greater saphenous vein, superficial femoral vein, and the popliteal vein. FINDINGS: no dvt CONCLUSIONS No evidence of right lower extremity DVT. No evidence of left lower extremity DVT. Peña Jordan MD (Electronically Signed) Final Date: 04 June 2023 11:41 S
[2023-06-04] MEDS: pantoprazole DR 40 mg Tablet PO (09:38)
--- NOTE | 2023-06-04 12:35 | CTR_ITS ---
PROCEDURE INFORMATION: Exam: CTA Chest With Contrast Exam date and time: 06/04/2023 2:42 PM Age: 68 years old Clinical indication: Shortness of breath; Prior surgery; Surgery date: 6+ months; Surgery type: Spine hetal; Additional info: Assess for pe TECHNIQUE: Imaging protocol: Computed tomographic angiography of the chest with contrast. Exam focused on the arteries. 3D rendering (Not supervised by radiologist): MIP and/or 3D reconstructed images were created by the technologist. Radiation optimization: All CT scans at this facility use at least one of these dose optimization techniques: automated exposure control; mA and/or kV adjustment per patient size (includes targeted exams where dose is matched to clinical indication); or iterative reconstruction. Contrast material: OMNI 350; Contrast volume: 100 ml; Contrast route: INTRAVENOUS (IV); REPORTING DATA: Count of CT and Cardiac NM exams in prior 12 months: This patient has received [address] and 0 known cardiac nuclear medicine studies in the 12 months prior to the current study. COMPARISON: 1. CT angio chest PE protcl [id number] 07/10/2022 1:[address] angio chest PE protcl [id number] 01/29/2020 4:23 PM 3. CR XR chest 1V portable [id number] 06/03/2023 3:55 PM RADIATION DOSE METRICS: Total DLP (mGy-cm): 376.51 FINDINGS: Pulmonary arteries: Normal. No pulmonary emboli. Aorta: Mild atherosclerotic calcification without aortic aneurysm. Lungs: Mild right lung base subsegmental atelectasis versus scarring. No consolidation. No mass. Pleural spaces: Unremarkable. No pneumothorax. No pleural effusion. Heart: Unremarkable. No cardiomegaly. No pericardial effusion. Lymph nodes: Unremarkable. No enlarged lymph nodes. Diaphragm: Small to moderate hiatal hernia with multiple surgical clips at the gastroesophageal region. Bones/joints: No acute fracture. Stable scoliosis status post posterior instrumented fusion along the thoracic spine. Soft tissues: Mild bilateral gynecomastia. CT/CT angio chest PE protcl [id number] IMPRESSION: 1. No acute findings. 2. Chronic and incidental findings as above.
[2023-06-04] MEDS: iohexol 350 mg/mL 500 mL Btl (per mL) IV (14:56)
[2023-06-04] MEDS: FUROsemide 10 mg/mL SDV 10mL 80 MG IVP (16:10)
[2023-06-04 18:19] LABS: Glucose Urine UA Norm (Normal); Ketones Urine Negative (Negative); Protein Urine Neg (Negative); Urine Appearance Clear (CLEAR); Urine Color Light yellow (Yellow); pH Urine 5 (5-7)
[2023-06-04 18:20] LABS: Bilirubin Urine Neg (Negative); Blood Urine 2+ (Negative); Leukocyte Esterase Urine Negative (Negative); Nitrate Urine Negative (Negative); RBC Urine 0-4 /hpf (0-2); Squamous Epithelial Cell Urine 0-4 /hpf (0-5); Urobilinogen Urine Norm (Negative); WBC Urine 0-4 /hpf (0-5)
[2023-06-04 18:21] LABS: Add Urine Culture? No
--- NOTE | 2023-06-04 19:48 | PM.PN ---
Subjective Subjective: He reports he is feeling better today. We discussed with him regarding episode of chest pain, discussed abnormal D-dimer, additional assessment by ultrasound, as well as additional assessment for possible PE. Discussed VQ scan versus CTA, he preferred not to do CTA due to claustrophobia, discussed VQ scan to which he agreed, but subsequent discussion of the details of the procedure he changed his mind and preferred to instead proceed with CTA. Vitals/I&O/Wt Last Vital Signs Temp 99.5 F 06/04/23 16:00 Pulse 63 06/04/23 16:00 Resp 16 06/04/23 16:00 BP 116/55 06/04/23 16:00 Pulse Ox 97 06/04/23 16:00 O2 Del Method Nasal Cannula 06/04/23 16:00 O2 Flow Rate 3 06/04/23 13:37 FiO2 24 06/04/23 08:16 06/04/23 06/04/23 06/04/23 06:59 14:59 22:59 Intake Total 490 / 540 510 / 510 242 / 752 Output Total 1300 / 1600 Balance -810 / -1060 510 / 510 242 / 752 Weight last 48 hrs Weight 98.883 kg Physical Exam Narrative: and family including son at bedside. Const: COMMON NORMALS: patient oriented x3 and alert GENERAL APPEARANCE: cooperative ORIENTATION/CONSCIOUSNESS: Yes awake HENMT: COMMON NORMALS: oropharynx normal Neck/C-Spine: COMMON NORMALS: no JVD Resp: AUSCULTATION: rhonchi, wheezes and diminished lung sounds Cardio: COMMON NORMALS: no JVD, regular rhythm, S1 normal heart sound present, S2 normal heart sound present and No murmurs present (Cardio) RHYTHM: regular rhythm HEART SOUNDS: S1 normal heart sound present and S2 normal heart sound present GI: COMMON NORMALS: Normal to inspection, nondistended, normoactive bowel sounds present, Soft to palpation and non-tender PALPATION: Yes Soft to palpation Extremity: COMMON NORMALS: no joint enlargement and no pedal edema GENERAL: Yes edema (1+ up to thighs) Neuro: COMMON NORMALS: patient oriented x3 and moves all extremities SENSORIUM/ORIENTATION: Yes alert Skin: COMMON NORMALS: no rashes or lesions noted GENERAL SKIN EXAM: no rashes or lesions noted Data 06/04/23 04:55 06/04/23 04:55 A&P Assessment and plan (1) Acute respiratory failure with hypoxia and hypercarbia: Improving, weaned off BiPAP. Today feels he is breathing better. He is no longer somnolent. He declined CABG, however, suspect hypercapnia has improved. Discussed with him to continue BiPAP with sleep at night or with naps. Encouraged to do so with AVAPS at home. Discussed to monitor for any fluid overload which may predispose him to hypercapnia. Cautioned him and family regarding hypercapnic encephalopathy. BiPAP support. RT assess and treat. Wean as tolerating. Cardiac monitoring. ABG noted. D-dimer abnormal as per above discussion further assessed by venous duplex which did not show DVT. Additionally obtained CTA which did not show PE. At current time no sign of sepsis. Chest x-ray nonacute. CBC noted, no leukocytosis. Follow-up CBC. Has oxygen at home, discussed with case management. (2) Acute exacerbation of chronic obstructive airways disease: Improving. Improving air entry. We will decrease IV steroids to 20 mg every 8 hours. Reassess blood glucose. Severe exacerbation of COPD with respiratory failure, dyspnea, productive cough At risk of progression, life-threatening deterioration, hypercapnic encephalopathy, other complications. Continue IV steroid treatment with Solu-Medrol, Rocephin 1 g every 24 hours IV. DuoNebs. RT assess and treat. Collect sputum culture. Viral respiratory panel are requested, noted negative. (3) CHF exacerbation: He is diuresing. Some decrease in edema in lower extremities. Hypercapnia has with suspected improvement. Continue IV diuretics for today. Did not receive morning dose as he lost IV access and initially declined replacement. Recheck chemistry due to risk of electrolyte normality. Check magnesium as well. Monitor JOSH, weight. So far tolerating diuresis. Noted potassium 3.1, replaced. Noted BUN 17 creatinine 1.2. Record printed from [place], noted echocardiogram Friday with EF 45-50%. Grade 1 diastolic dysfunction. Acute exacerbation of systolic and diastolic CHF. Echo back in 2021 with normal ejection fraction. Exclude acute ischemia given recent chest pain episode. Complete troponin EKG series. Monitor with telemetry. Currently no signs of ischemia/acute MS, troponin series unremarkable. No persistent chest pain, atypical chest pain prior to admission. Will need follow-up with cardiology for consideration of further assessment given decrease in ejection fraction. Continue Lasix 80 mg IV for now twice daily. Monitor JOSH. Weights. At risk of electrolyte abnormality. Assess chemistry, magnesium. Monitor for arrhythmia. (4) Goals of care, counseling/discussion: Discussing CODE STATUS with him with his family present in case of cardiopulmonary arrest he would not want CPR. However, in case of isolated progressive respiratory failure he would be okay with intubation and temporary mechanical ventilatory support. Plan GERD: PPI CELESTE: At home wears nightly AVAPS. Would benefit from continuing. Restrictive lung disease due to kyphoscoliosis Scoliosis Other medical problems noted List home medications. ER documentation reviewed. Discussed with ER physician. Attestations Medical Necessity Statement*: Continue hospitalization for assessment management of CHF exacerbation, severe exacerbation of COPD, improved respiratory failure. Diagnoses Acute respiratory failure with hypoxia and hypercarbia J96.01; J96.02 Acute exacerbation of chronic obstructive airways disease J44.1 CHF exacerbation I50.9 Goals of care, counseling/discussion Z71.89
[2023-06-04] MEDS: potassium chloride ER 20 mEq Tablet 40 MEQ PO (21:03)
[2023-06-04] MEDS: cefTRIAXone 1,000 MG in sodium chloride 0.9% (plus) 50 ML 100 MG IV (21:04)
[2023-06-05] VITALS (10 sets, daily range): BP systolic 111–123; BP diastolic 63–72; PULSE 54–67; RESP 14–24; TEMP 36.4–36.8; O2SAT 88–99
[2023-06-05] MEDS: methylPREDNISolone sod succ 40 mg/mL INJ 20 MG IVP (00:35)
[2023-06-05] MEDS: ipratropium-albuterol 3 mL Neb INHALATION ×2 (01:16→09:07)
[2023-06-05] MEDS: FUROsemide 10 mg/mL SDV 10mL 80 MG IVP (05:40)
[2023-06-05 07:19] LABS: Hematocrit 38.5 % (42.0-52.0); Hemoglobin 11.9 g/dL (11.7-16.6); Lymphocytes % 7.7 %; Mean Corpuscular HGB Conc 30.9 g/dL (30.0-36.0); Mean Corpuscular Volume 93.9 fl (80-94); Mean Platelet Volume 9.7 fL (7.4-10.4); Monocytes # 0.4 10^3/uL (0.2-0.9); Neutrophils # 11.97 10^3/uL (1.8-7.7); Neutrophils % 88.9 %; Nucleated Red Blood Cells % 0 %; Platelet Count 202 10^3/cmm (130-400); Red Cell Distribution Width 13.1 % (12.1-15.1); White Blood Count 13.5 10^3/uL (4.0-10.0)
[2023-06-05 07:43] LABS: Alanine Aminotransferase 7 U/L (0-41); Albumin Level 3.9 g/dL (3.5-5.2); Alkaline Phosphatase 87 U/L (40-130); Anion Gap 17.6 (5-19); Aspartate Amino Transferase 11 U/L (0-40); Blood Urea Nitrogen 26 mg/dL (8-23); Carbon Dioxide 29 mmol/L (22-29); Chloride 96 mmol/L (98-107); Globulin 2.5 g/dL (1.3-4.6); Glomerular Filtration Rate 84.2 mL/min (90-130); Glucose 161 mg/dL (65-115); Osmolality Calculated 296 mOsm/kg (285-295); Potassium 3.6 mmol/L (3.5-5.1); Sodium 139 mmol/L (136-145); Total Bilirubin 0.2 mg/dL (0.15-1.2); Total Protein 6.4 g/dL (6.6-8.7)
[2023-06-05] MEDS: pantoprazole DR 40 mg Tablet PO (10:19)
--- NOTE | 2023-06-05 10:53 | PM.DCS ---
Discharge Providers Date of Admission: 06/03/23 18:01 Date of Discharge: June 05, 2023 Attending Provider at Admission: Shahram Perdomo Attending Provider at Discharge: Shahram Perdomo Primary Care Provider: Ivelisse Ramos APN Diagnoses at Discharge Discharge Diagnosis (1) Acute respiratory failure with hypoxia and hypercarbia: Status: Acute (2) Acute exacerbation of chronic obstructive airways disease: Status: Acute (3) CHF exacerbation: Status: Inactive (4) Goals of care, counseling/discussion: Status: Acute Reason for Visit Reason for Visit: SOB Hospital Course Hospital Course Pleasant 68-year-old gentleman with history of COPD, chronically on oxygen during the day, as well as AVAPS with sleep, follows with Dr. Petit, as well as history of CHF, follows with cardiology in [place], presented with acute hypercapnic respiratory failure with respiratory stenosis, somewhat somnolent, had to be started on BiPAP in ER. Received Solu-Medrol, breathing treatments, empirically on ceftriaxone for severe exacerbation of COPD. Treated with IV diuretics for exacerbation of CHF. Weaned off BiPAP. Doing well on nasal cannula at 2 L while awake. Remains awake and alert with resolution of hypercapnic respiratory failure. Feels well and wants to discharge home. Noted decrease in ejection fraction on echocardiogram obtained in [place] last Friday by his heel seat filler, EF down to 45-50%, grade 1 diastolic dysfunction. He is asked to follow-up with cardiology to discuss further assessment and management. ROBERT inhibitor at the moment is not added due to soft blood pressure. Please reassess blood pressures, kidney function. Physical Exam Const: COMMON NORMALS: patient oriented x3 and alert GENERAL APPEARANCE: cooperative ORIENTATION/CONSCIOUSNESS: Yes awake HENMT: COMMON NORMALS: oropharynx normal Neck/C-Spine: COMMON NORMALS: no JVD Resp: COMMON NORMALS: normal respiratory effort and clear to auscultation bilaterally EFFORT & INSPECTION: Yes able to speak in complete sentences AUSCULTATION: clear to auscultation bilaterally Cardio: COMMON NORMALS: no JVD, regular rhythm, S1 normal heart sound present, S2 normal heart sound present and No murmurs present (Cardio) RHYTHM: regular rhythm HEART SOUNDS: S1 normal heart sound present and S2 normal heart sound present GI: COMMON NORMALS: Normal to inspection, nondistended, normoactive bowel sounds present, Soft to palpation and non-tender PALPATION: Yes Soft to palpation Extremity: COMMON NORMALS: no joint enlargement GENERAL: Yes edema (trace) Neuro: COMMON NORMALS: patient oriented x3 and moves all extremities SENSORIUM/ORIENTATION: Yes alert Skin: COMMON NORMALS: no rashes or lesions noted GENERAL SKIN EXAM: no rashes or lesions noted Discharge Data Studies Completed and Pending Completed Studies During Hospitalization Category Date Time Status CTA chest [CT angio chest PE protcl [id number]] Routine Cat Scan 06/04/23 12:35 Completed XR chest 1V portable [id number] Stat Exams 06/03/23 15:51 [place] [id number] Routine Ultrasound 06/04/23 09:03 Completed Pending at discharge Category Date Time Status Complete Blood Count w/Auto AM LABS Lab 06/06/23 04:00 Ordered Comprehensive Metabolic Panel AM LABS Lab 06/06/23 04:00 Ordered Magnesium AM LABS Lab 06/06/23 04:00 Ordered Sputum Culture and Gram Stain Routine Lab 06/03/23 21:34 Uncollected Radiology Impressions Chest X-Ray 06/03/23 15:51 IMPRESSION: Nonacute findings. Chest CTA 06/04/23 12:35 IMPRESSION: 1. No acute findings. 2. Chronic and incidental findings as above. Laboratory Results WBC 13.5 10^3/uL (4.0-10.0) H 06/05/23 06:35 Corrected WBC Cancelled 06/05/23 04:53 RBC 4.10 10^6/uL (4.1-5.3) 06/05/23 06:35 Hgb 11.9 g/dL (11.7-16.6) 06/05/23 06:35 Hct 38.5 % (42.0-52.0) L 06/05/23 06:35 MCV 93.9 fl (80-94) 06/05/23 06:35 MCH 29.0 pg (28.0-34.0) 06/05/23 06:35 MCHC 30.9 g/dL (30.0-36.0) 06/05/23 06:35 RDW 13.1 % (12.1-15.1) 06/05/23 06:35 Plt Count 202 10^3/cmm (130-400) 06/05/23 06:35 MPV 9.7 fL (7.4-10.4) 06/05/23 06:35 Gran % Cancelled 06/05/23 04:53 Neut % (Auto) 88.9 % 06/05/23 06:35 Lymph % (Auto) 7.7 % 06/05/23 06:35 [place] % (Auto) 3.0 % 06/05/23 06:35 Eos % (Auto) 0.0 % 06/05/23 06:35 Baso % (Auto) 0.0 % 06/05/23 06:35 Neut # (Auto) 11.97 10^3/uL (1.8-7.7) H 06/05/23 06:35 Lymph # (Auto) 1.0 10^3/uL (0.8-4.8) 06/05/23 06:35 [place] # (Auto) 0.4 10^3/uL (0.2-0.9) 06/05/23 06:35 Eos # (Auto) 0.0 10^3/uL (0.0-0.8) 06/05/23 06:35 Baso # (Auto) 0.0 10^3/uL (0.0-0.1) 06/05/23 06:35 Absolute Gran (auto) Cancelled 06/05/23 04:53 Nucleated RBC % (auto) 0 % 06/05/23 06:35 Nucleated RBCs # 0.0 /100WBC 06/05/23 06:35 D-Dimer 1.55 ug/mIFEU (0-0.59) H 06/03/23 16:11 Specimen Type Arterial 06/03/23 17:43 Sample Site Radial, right 06/03/23 17:43 ABG pH 7.39 (7.35-7.45) 06/03/23 17:43 ABG pCO2 51.9 mmHg (35-45) H 06/03/23 17:43 ABG pO2 148.0 mmHg (80.0-100.0) H 06/03/23 17:43 ABG HCO3 31.5 mmol/L (22-26) H 06/03/23 17:43 ABG O2 Saturation 100.0 06/03/23 17:43 ABG Base Excess 5.4 mmol/L (-2.0-2.0) H 06/03/23 17:43 Humberto Test Pos 06/03/23 17:43 A-a O2 Gradient Not Reportable 06/03/23 17:43 Hematocrit 38.6 % (42-52) L 06/03/23 17:43 Hgb O2 Saturation 98.6 % (95-100) 06/03/23 17:43 Carboxyhemoglobin 1.1 %THgb (0.4-20.1) 06/03/23 17:43 Methemoglobin 0.3 % (0.4-1.5) L 06/03/23 17:43 Total Hemoglobin 12.6 g/dL (14-18) L 06/03/23 17:43 Sodium 142.0 mmol/L (131-143) 06/03/23 17:43 Potassium 4.1 mmol/L (3.5-5.0) 06/03/23 17:43 Glucose 108.0 mg/dL (70-115) 06/03/23 17:43 Ionized Calcium 1.2 mmol/L (1.1-1.4) 06/03/23 17:43 O2 Delivery Device Bipap 06/03/23 17:43 O2 Liters/Min 1.0 % 06/03/23 15:50 FiO2 28.0 % 06/03/23 17:43 Tidal Volume 0.45 06/03/23 17:43 PEEP 8.0 cmH20 06/03/23 17:43 [place] Knitter ID Gd 06/03/23 17:43 Sodium 139 mmol/L (136-145) 06/05/23 06:35 Potassium 3.6 mmol/L (3.5-5.1) 06/05/23 06:35 Chloride 96 mmol/L (98-107) L 06/05/23 06:35 Carbon Dioxide 29 mmol/L (22-29) 06/05/23 06:35 Anion Gap 17.6 (5-19) 06/05/23 06:35 BUN 26 mg/dL (8-23) H 06/05/23 06:35 Creatinine 0.9 mg/dL (0.7-1.2) 06/05/23 06:35 GFR Calculation 84.2 mL/min (90-130) L 06/05/23 06:35 Glucose 161 mg/dL (65-115) H 06/05/23 06:35 Calculated Osmolality 296 mOsm/kg (285-295) H 06/05/23 06:35 Calcium 9.0 mg/dL (8.5-10.5) 06/05/23 06:35 Magnesium 2.0 mg/dL (1.7-2.3) 06/05/23 06:35 Total Bilirubin 0.2 mg/dL (0.15-1.2) 06/05/23 06:35 AST 11 U/L (0-40) 06/05/23 06:35 ALT 7 U/L (0-41) 06/05/23 06:35 Alkaline Phosphatase 87 U/L (40-130) 06/05/23 06:35 Troponin T Baseline 10 ng/L (0-15) 06/03/23 16:11 Troponin T 120 Minute 8.66 ng/L (0-15) 06/03/23 18:10 Delta Troponin T -1.34 ABS# (0-10) L 06/03/23 18:10 Troponin T Hi Sens 6Hr 6.02 ng/L (0-15) 06/03/23 22:23 Troponin T Hi Sens 6Hr Delta -3.98 ng/L (0-12) L 06/03/23 22:23 Total Protein 6.4 g/dL (6.6-8.7) L 06/05/23 06:35 Albumin 3.9 g/dL (3.5-5.2) 06/05/23 06:35 Globulin 2.5 g/dL (1.3-4.6) 06/05/23 06:35 Urine Color Light yellow (Yellow) 06/04/23 17:45 Urine Appearance Clear (CLEAR) 06/04/23 17:45 Urine pH 5 (5-7) 06/04/23 17:45 Ur Specific [place] 1.010 (1.005-1.030) 06/04/23 17:45 Urine Protein Neg (Negative) 06/04/23 17:45 Urine Glucose (UA) Norm (Normal) 06/04/23 17:45 Urine Ketones Negative (Negative) 06/04/23 17:45 Urine Blood 2+ (Negative) H 06/04/23 17:45 Urine Nitrate Negative (Negative) 06/04/23 17:45 Urine Bilirubin Neg (Negative) 06/04/23 17:45 Prot Sulfosalicylic Acd Cancelled 06/03/23 17:45 Urine Urobilinogen Norm mg/dL (Negative) 06/04/23 17:45 Ur Leukocyte Esterase Negative (Negative) 06/04/23 17:45 Urine RBC 0-4 /hpf (0-2) H 06/04/23 17:45 Urine WBC 0-4 /hpf (0-5) H 06/04/23 17:45 Ur Squamous Epith Cells 0-4 /hpf (0-5) H 06/04/23 17:45 Amorphous Sediment Not Reportable 06/04/23 17:45 Urine Bacteria None /hpf (NONE) 06/04/23 17:45 Urine Mucus None /hpf 06/04/23 17:45 Nasal Influ A H1 2009 PCR Not detected (NOT DETECT) 06/03/23 18:25 Adenovirus (PCR) Not detected (NOT DETECT) 06/03/23 18:25 C. pneumoniae DNA (PCR) Not detected (NOT DETECT) 06/03/23 18:25 Coronavirus 229E (PCR) Not detected (NOT DETECT) 06/03/23 18:25 Human Metapneumovir PCR Not detected (NOT DETECT) 06/03/23 18:25 Influenza A (H1) PCR Not detected (NOT DETECT) 06/03/23 18:25 Influenza A (H3) PCR Not detected (NOT DETECT) 06/03/23 18:25 Influenza Type A (PCR) Not detected (NOT DETECT) 06/03/23 18:25 Influenza Type B (PCR) Not detected (NOT DETECT) 06/03/23 18:25 M. pneumoniae (PCR) Not detected (NOT DETECT) 06/03/23 18:25 Parainfluenza 1 (PCR) Not detected (NOT DETECT) 06/03/23 18:25 Parainfluenza 2 (PCR) Not detected (NOT DETECT) 06/03/23 18:25 Parainfluenza 3 (PCR) Not detected (NOT DETECT) 06/03/23 18:25 Parainfluenza 4 (PCR) Not detected (NOT DETECT) 06/03/23 18:25 RSV Type A (PCR) Not detected (NOT DETECT) 06/03/23 18:25 RSV Type B (PCR) Not detected (NOT DETECT) 06/03/23 18:25 Entero/Rhino (PCR) Not detected (NOT DETECT) 06/03/23 18:25 SARS-CoV-2 (PCR) Not detected (NOT DETECT) 06/03/23 18:25 Vitals Last Vital Signs Temp 97.6 F 06/05/23 07:40 Pulse 58 L 06/05/23 09:08 Resp 18 06/05/23 09:08 BP 118/64 06/05/23 07:40 Pulse Ox 97 06/05/23 09:08 O2 Del Method Nasal Cannula 06/05/23 09:08 O2 Flow Rate 2 06/05/23 09:08 FiO2 24 06/05/23 01:20 Discharge Plan Discharge Patient Disposition: Home Condition: Stable Prescriptions: New cefdinir 300 mg capsule 300 mg PO BID 5 Days Qty: 10 0RF prednisone 10 mg tablet 10 mg PO DIRECTED Qty: 12 0RF Rx Instructions: 3 tab daily for 2 days, then 2 tab for 2 days, then 1 tab for 2 days Continued trazodone 50 mg tablet 50 mg PO BEDTIME ranolazine 500 mg tablet extended release 12 hr 500 mg PO BID furosemide [Lasix] 80 mg tablet 80 mg PO DAILY Qty: 14 2RF aspirin 81 mg tablet,delayed release (DR/EC) 81 mg PO DAILY Qty: 30 0RF cetirizine 10 mg Tablet 10 mg PO DAILY hydrocodone-acetaminophen 5-325 mg tablet 1 tab PO Q8H PRN (Reason: Pain) bumetanide 2 mg Tablet See Rx Instructions .ROUTE .COMPLEX Rx Instructions: 2 MG ORALLY ON FRIDAY, FRIDAY, FRIDAY, AND FRIDAY torsemide 10 mg Tablet 10 mg PO DAILY PRN (Reason: Weight Gain) acetazolamide 250 mg tablet 250 mg PO BID albuterol sulfate 2.5 mg /3 mL (0.083 %) Solution For Nebulization 2.5 mg INHALATION QID PRN (Reason: Shortness Of Breath) sennosides-docusate sodium [Stimulant Laxative Plus] 8.6-50 mg tablet 1 tab PO QAM triamcinolone acetonide 0.1 % cream 1 applic TOPICAL BID PRN (Reason: Itching) fluticasone propionate 50 mcg/actuation spray,suspension 2 spray INTRANASAL DAILY potassium chloride 20 mEq tablet extended release 40 meq PO BID Discharge Orders: Discharge Order (Routine); Ordered 06/05/23 Ordered By: Shahram Perdomo Referrals: Your, heel seat filler [Other] - 1 week Delta Petit MD [Physician] - 2 weeks Ivelisse Ramos FNP [Primary Care Provider] - 4-7 days (MESSAGE SENT TO CLINIC @ 1993) Discharge Diet: Cardiac Discharge Activity: Increase activity as tolerated, Oxygen as instructed and Cpap/Bipap as instructed Patient Instructions: Prednisone (By mouth), Cefdinir (By mouth), Heart Failure (GEN), COPD (Chronic Obstructive Pulmonary Disease) (GEN), CHF Stoplight, COPD Stoplight Activity Restrictions/Additional Instructions: Follow-up with your primary doctor, heel seat filler and lung specialist for reassessment after CHF exacerbation, COPD exacerbation. Discuss with your heel seat filler noted decrease in ejection fraction on your echo that was done last week and consider additional work-up. Continue oxygen. Continue AVAPS with sleep. In case you notice worsening swelling contact your heel seat filler office without delay. Seek medical attention in case experiencing chest pain or pressure, worsening shortness of breath, being very sleepy (can be a sign of buildup of carbon dioxide in your body), and/or any other concerning symptoms. When taking medications do not take too many pills at once. Take sips that he can swallow. Avoid milk. Discharge Attestations Time Spent in Discharge Care*: greater than 30 min Status at Discharge: Cognitive status at discharge: cognitively intact, Behavioral status at discharge: cooperative, Quality Metrics Clinical Quality Measures [ No reported AMI, CVA or VTE this stay] Coding Level of Care Code Acute Code for Chg Fwd Diagnoses Acute respiratory failure with hypoxia and hypercarbia J96.01; J96.02 Acute exacerbation of chronic obstructive airways disease J44.1 CHF exacerbation I50.9 Goals of care, counseling/discussion Z71.89
--- NOTE | 2023-06-05 12:20 | PC.NURSE ---
IV removed intact patient tolerated well. Patient is A&Ox3. Respirations even and non-labored on room air. Reviewed discharge with patient and daughter. Patient and daughter verbalized understanding of discharge instructions including the need to make a follow up appointment with his quality control lead in [place] for within a week. Patient and daughter verbalized understanding of how to take medications including antibiotics. Patent wheel chaired to private car.
--- NOTE | 2023-06-05 13:30 | PC.NURSE ---
Patient took exhalation valve from bipap home from hospital, patient was called and educated not to use it due to it not fitting his machine at home and that it could cause suffocation. Patient verbalized understanding and stated he would throw it away.
== END 2023-06-05 12:20 | disposition home or self-care (01) ==
LOC: ER 16:20 → MEDSURG 19:36
PROVIDERS: Admitting Provider Internal Medicine; Emergency Provider Family Medicine; PCP Nurse Practitioner; Visit Provider Internal Medicine
DX: J96.02 Acute respiratory failure with hypercapnia (principal); J96.01 Acute respiratory failure with hypoxia; J44.1 Chronic obstructive pulmonary disease with (acute) exacerbation; Z79.891 Long term (current) use of opiate analgesic; Z99.81 Dependence on supplemental oxygen; Z79.82 Long term (current) use of aspirin; Z87.891 Personal history of nicotine dependence; I45.10 Unspecified right bundle-branch block; R00.1 Bradycardia, unspecified; K21.9 Gastro-esophageal reflux disease without esophagitis; E66.9 Obesity, unspecified; Z68.41 Body mass index [BMI] 40.0-44.9, adult; G47.33 Obstructive sleep apnea (adult) (pediatric); Z99.89 Dependence on other enabling machines and devices; R07.9 Chest pain, unspecified; I50.43 Acute on chronic combined systolic (congestive) and diastolic (congestive) heart failure; J44.9 Chronic obstructive pulmonary disease, unspecified
CPT/HCPCS: 36415; 36600; 71045; 71275; 80051; 80053; 81001; 82330; 82805; 83735; 84484; 85025; 85378; 87486; 87581; 87633; 93005; 93970; 94640; 94660; 94760; 96372; 96374; 96375; 96376; 99285; G0378; J0696; J1650; J1940; J2920; J2930; Q9967

== ENCOUNTER → 2023-06-13 09:38 | Outpatient (BNVA) | payer MEDICARE, MEDICAID, SELFPAY | PROVIDERS: PCP Nurse Practitioner; Visit Provider Internal Medicine Pulmonary Disease | DX: Z87.891 Personal history of nicotine dependence; J44.9 Chronic obstructive pulmonary disease, unspecified; J96.12 Chronic respiratory failure with hypercapnia; J98.4 Other disorders of lung; M41.9 Scoliosis, unspecified; I50.32 Chronic diastolic (congestive) heart failure; G47.33 Obstructive sleep apnea (adult) (pediatric); Z99.81 Dependence on supplemental oxygen | CPT/HCPCS: 99214 ==

== ENCOUNTER 2023-06-26 11:25 | Observation (INO) | payer MEDICARE, MEDICAID, SELFPAY ==
[2023-06-26] VITALS (14 sets, daily range): BP systolic 115–134; BP diastolic 67–79; PULSE 51–87; RESP 16–19; TEMP 36.4–36.6; O2SAT 95–100; BMI 41.0
--- NOTE | 2023-06-26 11:59 | XRR_ITS ---
PROCEDURE INFORMATION: Exam: XR Chest Exam date and time: 06/26/2023 12:24 PM Age: 68 years old Clinical indication: Shortness of breath; Additional info: SOB TECHNIQUE: Imaging protocol: Radiologic exam of the chest. Views: 1 view. COMPARISON: CR XR chest 1V portable [id number] 06/03/2023 3:55 PM FINDINGS: Limitations: Evaluation is limited due to patient positioning and rotation as well as body habitus. Lungs: Lung volumes are significantly decreased, unchanged likely due to body habitus.. No consolidation or nayeli pulmonary edema detected. Pleural spaces: Unremarkable. No pleural effusion. No pneumothorax. Heart/Mediastinum: Cardiac silhouette difficult to evaluate due to distorted anatomy but appears stable in not markedly enlarged. Vasculature: Thoracic aorta is tortuous, unchanged. Bones/joints: Marked scoliosis of the thoracic spine convex to the patient's right with stabilizing spinal hetal unchanged. XR/XR chest 1V portable [id number] IMPRESSION: Stable chest. No active disease.
[2023-06-26 12:30] LABS: Basophils % 0.5 %; Eosinophils # 0.2 10^3/uL (0.0-0.8); Eosinophils % 3.1 %; Hematocrit 43.9 % (42.0-52.0); Hemoglobin 13.3 g/dL (11.7-16.6); Lymphocytes # 1.8 10^3/uL (0.8-4.8); Lymphocytes % 30.3 %; Mean Corpuscular HGB Conc 30.3 g/dL (30.0-36.0); Mean Corpuscular Hemoglobin 29.2 pg (28.0-34.0); Mean Corpuscular Volume 96.5 fl (80-94); Mean Platelet Volume 9.1 fL (7.4-10.4); Monocytes # 0.6 10^3/uL (0.2-0.9); Monocytes % 9.6 %; Neutrophils # 3.27 10^3/uL (1.8-7.7); Neutrophils % 56.3 %; Nucleated Red Blood Cells % 0 %; Platelet Count 201 10^3/cmm (130-400); Red Blood Count 4.55 10^6/uL (4.1-5.3); Red Cell Distribution Width 12.9 % (12.1-15.1); White Blood Count 5.8 10^3/uL (4.0-10.0)
[2023-06-26] MEDS: ipratropium-albuterol 3 mL Neb INHALATION ×2 (12:50→20:43)
[2023-06-26 12:54] LABS: Alanine Aminotransferase 14 U/L (0-41); Albumin Level 3.6 g/dL (3.5-5.2); Alkaline Phosphatase 88 U/L (40-130); Aspartate Amino Transferase 14 U/L (0-40); Blood Urea Nitrogen 15 mg/dL (8-23); Calcium 9.2 mg/dL (8.5-10.5); Carbon Dioxide 27 mmol/L (22-29); Chloride 104 mmol/L (98-107); Globulin 3.1 g/dL (1.3-4.6); Glomerular Filtration Rate 84.2 mL/min (90-130); Glucose 91 mg/dL (65-115); Osmolality Calculated 288 mOsm/kg (285-295); Sodium 139 mmol/L (136-145); Total Bilirubin 0.2 mg/dL (0.15-1.2); Total Protein 6.7 g/dL (6.6-8.7)
--- NOTE | 2023-06-26 13:05 | ED_ITS ---
HPI - Recheck/Abnormal Lab/Rx General: Chief Complaint: Recheck/Abnormal Lab/Rx Stated Complaint: dr cordero sent, blood work Time Seen by Provider: 06/26/23 12:32 Source: patient Mode of arrival: ambulatory Limitations: no limitations History of Present Illness: 68-year-old male has a history of COPD along with CHF who was recently admitted he has had changes to his AVAPS settings on his BiPAP he states that over the last 3 to 4 days has been having dizziness weakness feeling like he is not sleeping well. Patient was seen by his life skills worker this morning and sent to the ER. He had some increasing shortness of breath he denies any chest pain fever or cough. Review of Systems Const: Denies: fever(s) or chills ENMT: Denies: throat pain or dental pain Card: Denies: chest pain Resp: Reports: dyspnea GI: Denies: abdominal pain, nausea, vomiting or diarrhea Musc: Denies: neck pain or back pain Skin/Breast: Denies: rash Neuro: Reports: headache(s) and dizziness PFSH ED PFSH: Medical History Acquired arm deformity Chronic hypercapnic respiratory failure Congestive heart failure COPD (chronic obstructive pulmonary disease) Fixation hardware in spine GERD (gastroesophageal reflux disease) Hyperglycemia Kyphoscoliosis Obesity CELESTE (obstructive sleep apnea) Restrictive lung disease due to kyphoscoliosis Scoliosis Tobacco chew use Surgical History H/O arthroscopy of shoulder History of appendectomy History of [place] fundoplication Hx of cholecystectomy Family History Father Cancer Social History Smoking and tobacco status: former smoker Quit status (tobacco): has quit using tobacco Year quit tobacco: 2010 Former quit date comment: 2ppd x 10 years Second hand smoke exposure: No Smoking risk assessment/counseling performed?: Yes Alcohol intake: never Substance/Drug Use: never Lives independently: Yes Household members: spouse Housing: House Marital status: service: No Current occupational status: employed 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 Pets and animals: Yes Do you think of yourself as: Straight/Heterosexual Current gender identity: Male Physical Exam Const: COMMON NORMALS: patient oriented x3 GENERAL APPEARANCE: ill appearing HENMT: COMMON NORMALS: normocephalic and atraumatic HEAD & SCALP: normocephalic and atraumatic Eye: COMMON NORMALS: EOMs intact bilaterally Neck/C-Spine: COMMON NORMALS: full ROM and supple Chest: COMMONS NORMALS: normal inspection of the chest and normal palpation of entire chest wall Resp: COMMON NORMALS: No retractions and No use of accessory muscles AUSCULTATION: wheezes Cardio: COMMON NORMALS: regular rate, regular rhythm and No murmurs present (Cardio) RATE: regular rate RHYTHM: regular rhythm GI: COMMON NORMALS: Normal to inspection, nondistended, normoactive bowel sounds present, Soft to palpation, non-tender and no masses PALPATION: Yes Soft to palpation Extremity: COMMON NORMALS: normal to inspection and full ROM Neuro: COMMON NORMALS: patient oriented x3, moves all extremities and no focal motor deficits Psych: COMMON NORMALS: mental status grossly normal, Normal thought process present and cooperative THOUGHT PROCESS: Normal thought process present Skin: COMMON NORMALS: no rashes or lesions noted and no wounds GENERAL SKIN EXAM: no rashes or lesions noted Course Vital Signs: Vital signs: Vital Signs Temperature 97.8 F 06/26/23 11:34 Pulse Rate 72 06/26/23 13:30 Respiratory Rate 19 H 06/26/23 13:01 Blood Pressure 131/71 06/26/23 13:01 Pulse Oximetry 98 06/26/23 13:30 Oxygen Delivery Me thod Nasal Cannula 06/26/23 13:01 Oxygen Flow Rate 2 06/26/23 13:01 Fraction of Inspir ed Oxygen 28 06/26/23 13:30 MDM - Recheck/Abnormal Lab/Rx Medical Decision Making Patient presents here with COPD exacerbation he is hypercapnic. He is sent here by his life skills worker concerning that he needs different settings on his AVAPS. He does have hypercapnic respiratory failure here spoke to the hospitalist will admit for observation no pneumonia seen on his x-ray. Medical Records I reviewed the patient's medical records. Lab Data I reviewed the patient's lab results. 06/26/23 12:18 06/26/23 12:18 Laboratory Results WBC 5.8 10^3/uL (4.0-10.0) 06/26/23 12:18 RBC 4.55 10^6/uL (4.1-5.3) 06/26/23 12:18 Hgb 13.3 g/dL (11.7-16.6) 06/26/23 12:18 Hct 43.9 % (42.0-52.0) 06/26/23 12:18 MCV 96.5 fl (80-94) H 06/26/23 12:18 MCH 29.2 pg (28.0-34.0) 06/26/23 12:18 MCHC 30.3 g/dL (30.0-36.0) 06/26/23 12:18 RDW 12.9 % (12.1-15.1) 06/26/23 12:18 Plt Count 201 10^3/cmm (130-400) 06/26/23 12:18 MPV 9.1 fL (7.4-10.4) 06/26/23 12:18 Neut % (Auto) 56.3 % 06/26/23 12:18 Lymph % (Auto) 30.3 % 06/26/23 12:18 [place] % (Auto) 9.6 % 06/26/23 12:18 Eos % (Auto) 3.1 % 06/26/23 12:18 Baso % (Auto) 0.5 % 06/26/23 12:18 Neut # (Auto) 3.27 10^3/uL (1.8-7.7) 06/26/23 12:18 Lymph # (Auto) 1.8 10^3/uL (0.8-4.8) 06/26/23 12:18 [place] # (Auto) 0.6 10^3/uL (0.2-0.9) 06/26/23 12:18 Eos # (Auto) 0.2 10^3/uL (0.0-0.8) 06/26/23 12:18 Baso # (Auto) 0.0 10^3/uL (0.0-0.1) 06/26/23 12:18 Nucleated RBC % (auto) 0 % 06/26/23 12:18 Nucleated RBCs # 0.0 /100WBC 06/26/23 12:18 Specimen Type Arterial 06/26/23 13:05 Sample Site Radial, right 06/26/23 13:05 ABG pH 7.25 (7.35-7.45) L 06/26/23 13:05 ABG pCO2 64.9 mmHg (35-45) H* 06/26/23 13:05 ABG pO2 104.0 mmHg (80.0-100.0) H 06/26/23 13:05 ABG HCO3 28.5 mmol/L (22-26) H 06/26/23 13:05 ABG Base Excess -0.3 mmol/L (-2.0-2.0) 06/26/23 13:05 Humberto Test Pos 06/26/23 13:05 Hematocrit 40.9 % (42-52) L 06/26/23 13:05 Hgb O2 Saturation 96.5 % (95-100) 06/26/23 13:05 Carboxyhemoglobin 1.5 %THgb (0.4-20.1) 06/26/23 13:05 Methemoglobin 0.7 % (0.4-1.5) 06/26/23 13:05 Total Hemoglobin 13.3 g/dL (14-18) L 06/26/23 13:05 O2 Delivery Device Nc 06/26/23 13:05 O2 Liters/Min 2.0 % 06/26/23 13:05 FiO2 28.0 % 06/26/23 13:05 Dictaphone Transcriber ID Cak 06/26/23 13:05 Sodium 139 mmol/L (136-145) 06/26/23 12:18 Potassium 4.0 mmol/L (3.5-5.1) 06/26/23 12:18 Chloride 104 mmol/L (98-107) 06/26/23 12:18 Carbon Dioxide 27 mmol/L (22-29) 06/26/23 12:18 Anion Gap 12.0 (5-19) 06/26/23 12:18 BUN 15 mg/dL (8-23) 06/26/23 12:18 Creatinine 0.9 mg/dL (0.7-1.2) 06/26/23 12:18 GFR Calculation 84.2 mL/min (90-130) L 06/26/23 12:18 Glucose 91 mg/dL (65-115) 06/26/23 12:18 Calculated Osmolality 288 mOsm/kg (285-295) 06/26/23 12:18 Calcium 9.2 mg/dL (8.5-10.5) 06/26/23 12:18 Magnesium 2.0 mg/dL (1.7-2.3) 06/26/23 12:18 Total Bilirubin 0.2 mg/dL (0.15-1.2) 06/26/23 12:18 AST 14 U/L (0-40) 06/26/23 12:18 ALT 14 U/L (0-41) 06/26/23 12:18 Alkaline Phosphatase 88 U/L (40-130) 06/26/23 12:18 Troponin T Baseline 9 ng/L (0-15) 06/26/23 12:18 NT-Pro-B Natriuret Pep 59 pg/mL (0-125) 06/26/23 12:18 Total Protein 6.7 g/dL (6.6-8.7) 06/26/23 12:18 Albumin 3.6 g/dL (3.5-5.2) 06/26/23 12:18 Globulin 3.1 g/dL (1.3-4.6) 06/26/23 12:18 Discharge Plan Discharge Patient Disposition: Admitted As Inpatient Clinical Impression: Acute and chronic respiratory failure with hypercapnia, Acute exacerbation of chronic obstructive airways disease Condition: Stable Prescriptions: No Action trazodone 50 mg tablet 50 mg PO BEDTIME ranolazine 500 mg tablet extended release 12 hr 500 mg PO BID furosemide [Lasix] 80 mg tablet 80 mg PO DAILY Qty: 14 2RF aspirin 81 mg tablet,delayed release (DR/EC) 81 mg PO DAILY Qty: 30 0RF cetirizine 10 mg Tablet 10 mg PO DAILY hydrocodone-acetaminophen 5-325 mg tablet 1 tab PO Q8H PRN (Reason: Pain) bumetanide 2 mg Tablet See Rx Instructions .ROUTE .COMPLEX Rx Instructions: 2 MG ORALLY ON FRIDAY, FRIDAY, FRIDAY, AND FRIDAY torsemide 10 mg Tablet 10 mg PO DAILY PRN (Reason: Weight Gain) acetazolamide 250 mg tablet 250 mg PO BID albuterol sulfate 2.5 mg /3 mL (0.083 %) Solution For Nebulization 2.5 mg INHALATION QID PRN (Reason: Shortness Of Breath) sennosides-docusate sodium [Stimulant Laxative Plus] 8.6-50 mg tablet 1 tab PO QAM triamcinolone acetonide 0.1 % cream 1 applic TOPICAL BID PRN (Reason: Itching) fluticasone propionate 50 mcg/actuation spray,suspension 2 spray INTRANASAL DAILY potassium chloride 20 mEq tablet extended release 40 meq PO BID Referrals: Ivelisse Ramos FNP [Primary Care Provider] - Coding Level of Care Code ED Supervisor Pressing Department for [facility]
--- NOTE | 2023-06-26 13:14 | ECG_ITS ---
[facility] Test Date: 2023-06-26 Pat Name: Sukumar Bangura Department: Room: Gender: Male Risk Management Specialist: : [id number] Requested By: Anu Stewart Order Number: [id number] Garcia MD: Darryl Guerra M.D. Measurements Intervals [place] Rate: 70 P: 71 SD: 171 QRS: -2 QRSD: 106 T: 31 QT: 418 QTc: 452 Interpretive Statements SINUS RHYTHM INCOMPLETE RIGHT BUNDLE BRANCH BLOCK [90+ ms QRS DURATION, TERMINAL R IN V1/V2, 40+ ms S IN I/aVL/V4/V5/V6] Compared to ECG 06/03/2023 23:40:26 No significant changes Electronically Signed On 06-27-2023 9:26:34 CDT by Darryl Guerra M.D. [id number]
[2023-06-26 13:16] LABS: ABG PH Result 7.25 (7.35-7.45); Arterial Blood Gas Hematocrit 40.9 % (42-52); Base Excess ABG -0.3 mmol/L (-2.0-2.0); Blood Gas Allen Test Pos; Blood Gas Operator Identificat CAK; Blood Gas Sample Site Radial, right; Blood Gas Sample Type Arterial; Carboxyhemoglobin 1.5 %THgb (0.4-20.1); HCO3 ABG 28.5 mmol/L (22-26); HGB O2 Sat 96.5 % (95-100); Methemoglobin 0.7 % (0.4-1.5); Oxygen Device NC; Total Hemoglobin 13.3 g/dL (14-18)
[2023-06-26 13:17] LABS: ABG PCO2 64.9 mmHg (35-45)
[2023-06-26 13:50] LABS: NT Pro B Type Natriuretic Pept 59 pg/mL (0-125); Troponin(5th) Baseline 9 ng/L (0-15)
--- NOTE | 2023-06-26 14:40 | ECG_ITS ---
[facility] Test Date: 2023-06-26 Pat Name: Sukumar Bangura Department: Room: 261 Gender: Male Aoc Director Combat Plans Officer: : 1955 Requested By: Anu Stewart Order Number: [id number] Garcia MD: Darryl Guerra M.D. Measurements Intervals [place] Rate: 55 P: 30 ME: 153 QRS: -2 QRSD: 102 T: 31 QT: 446 QTc: 429 Interpretive Statements SINUS BRADYCARDIA INCOMPLETE RIGHT BUNDLE BRANCH BLOCK [90+ ms QRS DURATION, TERMINAL R IN V1/V2, 40+ ms S IN I/aVL/V4/V5/V6] Compared to ECG 06/26/2023 13:14:04 Sinus rhythm no longer present Electronically Signed On 06-27-2023 9:30:07 CDT by Darryl Guerra M.D. [id number]
--- NOTE | 2023-06-26 14:45 | P.HP_ITS ---
Providers/Chief Complaint Primary Care Provider: Ivelisse Ramos APN Chief Complaint: dr cordero sent, blood work History of Present Illness Sukumar Bangura is a 68 year old male with past medical history of congestive heart failure, obesity, scoliosis, end-stage COPD on 2 L of baseline oxygen supplementation during the day and 6 L at night along with AVAPS was sent into the ER today from pulmonology office. Patient was admitted about 3 weeks ago for 3 nights for hypercapnic respiratory failure. Since then patient was feeling drowsy at home and his BiPAP settings were changed by outpatient media relations associate as an outpatient. However after changing the settings patient felt better for 2 to 3 days though afterwards as per his he started having drowsiness and few episodes of confusion again. Today when he was seen in the pulmonology office patient was found to be drowsy and he was sent to the ER. In the ER ABG was done which showed a pH of 7.25 with pCO2 of 64.9, pO2 of 104. Other blood work appreciated Review of Systems General: Reports: 10 or more systems reviewed and unremarkable except in HPI and below Const: Denies: fever(s), chills, body aches, change in appetite, change in weight, malaise, night sweats, diaphoresis, change in sleep pattern, daytime sleepiness or snoring Eyes: Denies: change in vision, blurry vision, photophobia, eye discomfort or eye discharge ENMT: Denies: throat pain, enlarged tonsils, hoarseness, mouth pain, oral sor es, dry mouth, tinnitus, nasal congestion or post nasal drip Card: Denies: chest pain, palpitations, irregular heart rhythm, edema, swelling of feet/ankles, lightheadedness, syncope, pre-syncope, dyspnea on exertion, orthopnea, leg pain with exertion or acrocyanosis Resp: Denies: dyspnea, productive cough, non-productive cough, wheezing, stridor, pain on inspiration, change in phlegm color, hemoptysis or chest congestion GI: Denies: abdominal pain, nausea, vomiting, hematemesis, coffee ground emesis, dysphagia, heartburn, diarrhea, constipation, bloating, GI cramping, change in bowel habits, pain on defecation, hematochezia or melena : Denies: flank pain, difficulty urinating, dysuria, urinary frequency, urinary urgency, urinary hesitancy, urinary dribbling, difficulty starting urination, change in urine stream, nocturia or hematuria Musc: Denies: neck pain, back pain, extremity pain, joint pain, joint swelling, joint redness, joint stiffness or limited range of motion Neuro: Denies: headache(s), numbness in extremities, weakness in extremities, sensory changes, lack of coordination, difficulty walking, frequent falls, dizziness, vertigo, confusion, Slurred speech present, difficulty communicating thoughts or seizure-like activity Psych: Denies: anxiety, depression, mood swings, panic attacks, hopelessness or irritability Endo: Denies: polyuria, polydipsia, tired all the time, cold intolerance, excessive sweating, flushing or heat intolerance Chaitanya/Lymph: Denies: easy bruising or easy bleeding All/Imm: Denies: tongue swelling, facial swelling or acute wheezing Medications/Allergies Home Medications Medication Instructions Recorded Confirmed Last Taken Type aspirin 81 mg tablet,delayed 81 mg PO DAILY #30 tabs 06/02/21 06/26/23 06/26/23 Rx release ranolazine 500 mg tablet,extended 500 mg PO BID 02/12/22 06/26/23 06/26/23 History release,12 hr acetazolamide 250 mg tablet 250 mg PO BID 07/10/22 06/26/23 06/26/23 History albuterol sulfate 2.5 mg/3 mL 2.5 mg inhalation QID PRN 07/10/22 06/26/23 Unknown History (0.083 %) solution for nebulization Shortness Of Breath fluticasone propionate 50 2 spray intranasal DAILY 07/10/22 06/26/23 06/26/23 History mcg/actuation nasal spray,suspension potassium chloride 20 mEq 40 meq PO BID 07/10/22 06/26/23 06/26/23 History tablet,extended release sennosides 8.6 mg-docusate sodium 1 tab PO QAM 07/10/22 06/26/23 06/26/23 History 50 mg tablet (Stimulant Laxative Plus) bumetanide 2 mg tablet See Rx Instructions .Route .COMPLEX 06/04/23 06/26/23 06/26/23 History cetirizine 10 mg tablet 10 mg PO DAILY 06/04/23 06/26/23 06/26/23 History hydrocodone 5 mg-acetaminophen 325 1 tab PO Q8H PRN Pain 06/04/23 06/26/23 06/26/23 History mg tablet torsemide 10 mg tablet 10 mg PO DAILY PRN Weight Gain 06/04/23 06/26/23 Unknown History trazodone 150 mg tablet 150 mg PO BEDTIME 06/26/23 06/26/23 06/25/23 History Allergies Allergy/AdvReac Type Severity Reaction Status Date / Time codeine Allergy ALGY-Rash Verified 06/26/23 11:42 PFSH Acute PFSH: Medical History Acquired arm deformity Acute kidney injury superimposed on chronic kidney disease Chronic hypercapnic respiratory failure Congestive heart failure COPD (chronic obstructive pulmonary disease) COVID-19 Fixation hardware in spine GERD (gastroesophageal reflux disease) Hyperglycemia Kyphoscoliosis Obesity CELESTE (obstructive sleep apnea) Restrictive lung disease due to kyphoscoliosis Scoliosis Tobacco chew use Surgical History H/O arthroscopy of shoulder History of appendectomy History of [place] fundoplication Hx of cholecystectomy Family History Father Cancer Social History Smoking and tobacco status: former smoker Quit status (tobacco): has quit using tobacco Year quit tobacco: 2010 Former quit date comment: 2ppd x 10 years Second hand smoke exposure: No Smoking risk assessment/counseling performed?: Yes Alcohol intake: never Substance/Drug Use: never Lives independently: Yes Household members: spouse Housing: House Marital status: service: No Current occupational status: employed 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 Pets and animals: Yes Do you think of yourself as: Straight/Heterosexual Current gender identity: Male Vitals/I&O/Wt Last Vital Signs Temp 97.8 F 06/26/23 11:34 Pulse 57 L 06/26/23 14:30 Resp 19 H 06/26/23 13:01 BP 123/69 06/26/23 14:30 Pulse Ox 98 06/26/23 14:30 O2 Del Method Nasal Cannula 06/26/23 13:01 O2 Flow Rate 2 06/26/23 13:01 FiO2 28 06/26/23 13:30 Weight last 48 hrs Weight 95.254 kg Physical Exam Narrative: General: No acute distress, AO x3 HEENT: PERRLA, pupils bilaterally equal and reactive Chest: Bilateral bronchial breath sounds all over lung bryant, decreased air entry all over lung bryant CVS: S1-S2 regular, no murmurs, no tachycardia, no gallops, no rubs Abdomen: Soft, nontender, no organomegaly, bowel sounds present Neuro: No focal deficits, no facial deformity, AO x3, power 5/5 in all limbs Data 06/26/23 12:18 06/26/23 12:18 A&P Assessment and plan (1) Acute and chronic respiratory failure with hypercapnia: Unknown etiology. Could be secondary to underlying possible infection though unlikely as patient does not have any leukocytosis or fever or any history. Could be secondary to congestive heart failure though proBNP is only 59 and patient does not have any history of orthopnea/PND or edema. Could be secondary polypharmacy in setting of Diamox 250 mg twice daily. Have asked patient to get his home AVAPS machine so that titration can be done on the same machine overnight. ABG in a.m. while on the AVAPS. DuoNebs every 6 hour, budesonide twice daily. Continue home dose of Bumex. Hold off on steroids. (2) Altered mental status: Insetting of hypercapnic respiratory failure. Seems to be coming back to baseline currently though slightly drowsy. (3) Acute exacerbation of chronic obstructive airways disease: (4) Congestive heart failure: No exacerbation. Last echocardiogram from February 2022 showed EF of 65% with RVSP of 11.6 mmHg. Qualifiers: Heart failure chronicity: chronic Heart failure type: diastolic Qualified Code(s): I50.32 - Chronic diastolic (congestive) heart failure Plan CODE STATUS: Discussed in detail with the patient and spouse at bedside. Patient does not want to be on ventilator management of chest compressions. DNR/DNI. Cardiac diet Protonix for PUD prophylaxis Lovenox for DVT prophylaxis. Attestations Medical Necessity Statement*: Admission under observation for management of acute on chronic hypercapnic respiratory failure in setting of possible polypharmacy while outpatient AVAPS machine is titrated Diagnoses Acute and chronic respiratory failure with hypercapnia J96.22 Altered mental status R41.82 Acute exacerbation of chronic obstructive airways disease J44.1 Congestive heart failure I50.32 Heart failure chronicity: chronic Heart failure type: diastolic
[2023-06-26 15:56] LABS: Thyroid Stimulating Hormone 1.58 uIU/mL (0.27-4.20)
[2023-06-26] MEDS: potassium chloride ER 20 mEq Tablet 40 MEQ PO (18:13)
[2023-06-26] MEDS: enoxaparin 40 mg/0.4 mL Syringe SUBCUT (18:13)
[2023-06-26] MEDS: ranolazine (12HR) 500 mg Tablet PO (18:13)
[2023-06-26 18:16] LABS: Bilirubin Urine Neg (Negative); Blood Urine Neg (Negative); Glucose Urine UA Norm (Normal); Ketones Urine Negative (Negative); Nitrate Urine Negative (Negative); Protein Urine Neg (Negative); Specific Gravity, Urine 1.005 (1.005-1.030); Urine Appearance Cloudy (CLEAR); Urine Color Yellow (Yellow); pH Urine 7 (5-7)
[2023-06-26 18:17] LABS: Procalcitonin 0.09 ng/mL (0-0.5); Vitamin B12 382 pg/mL (232-1245)
[2023-06-26 18:17] LABS: Add Urine Culture? No; Add Urine Microscopic? YES; Amorphous Sediment Urine 4+ /hpf; Leukocyte Esterase Urine Negative (Negative); Mucus Urine 1+ /hpf; Squamous Epithelial Cell Urine 0-4 /hpf (0-5); Urobilinogen Urine Norm (Negative)
[2023-06-26 18:28] LABS: Iron 51 ug/dL (59-158); Percent Saturation 17.9 % (20-50); Total Iron Binding Capacity 284 mcg/dl; Unsaturated Iron Binding 233 ug/dL (112-347)
--- NOTE | 2023-06-26 18:40 | ECG_ITS ---
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 Measurements Intervals [place] Rate: 77 P: 56 CO: 163 QRS: -10 QRSD: 111 T: 31 QT: 329 QTc: 372 Interpretive Statements SINUS RHYTHM INCOMPLETE RIGHT BUNDLE BRANCH BLOCK [90+ ms QRS DURATION, TERMINAL R IN V1/V2, 40+ ms S IN I/aVL/V4/V5/V6] NONSPECIFIC T-WAVE ABNORMALITY Compared to ECG 06/26/2023 15:03:38 T-wave abnormality now present Sinus bradycardia no longer present Electronically Signed On 06-27-2023 9:29:50 CDT by Darryl Guerra M.D. [id number]
[2023-06-26 20:04] LABS: Troponin 5 6HR 8.35 ng/L (0-15); Troponin 5 6HR Delta -0.65 ng/L (0-12)
[2023-06-26] MEDS: budesonide 0.5 mg/2 mL Neb INHALATION (20:43)
--- NOTE | 2023-06-26 20:45 | PC.NURSE ---
DISCHARGE Pt discharged with parents after discharge instructions given. No c/o on discharge and all belongings with
[2023-06-26] MEDS: trazodone 150 mg Tablet PO (21:02)
[2023-06-27] VITALS (19 sets, daily range): BP systolic 109–137; BP diastolic 64–76; PULSE 53–110; RESP 16–22; TEMP 36.6–36.9; O2SAT 94–100
--- NOTE | 2023-06-27 00:18 | PC.NURSE ---
IV Pt accidentally got IV pulled out. Says took several tries to get IV started today and would like to leave it out until he sees Dr in the am. IV Protonix not due until 0900 in the morning
[2023-06-27] MEDS: ipratropium-albuterol 3 mL Neb INHALATION ×4 (01:39→20:17)
[2023-06-27 05:12] LABS: ABG PCO2 51.4 mmHg (35-45); ABG PH Result 7.34 (7.35-7.45); Arterial Blood Gas Hematocrit 36.4 % (42-52); Base Excess ABG 1.1 mmol/L (-2.0-2.0); Blood Gas Allen Test Pos; Blood Gas Operator Identificat MONRO; Blood Gas Sample Site Radial, right; Blood Gas Sample Type Arterial; Carboxyhemoglobin 1.5 %THgb (0.4-20.1); HCO3 ABG 27.6 mmol/L (22-26); HGB O2 Sat 98.1 % (95-100); Ionized Calcium Level - ABG 1.3 mmol/L (1.1-1.4); Methemoglobin 0.7 % (0.4-1.5); Oxygen Device BIPAP; Oxygen Saturation ABG > 100.0; Total Hemoglobin 11.9 g/dL (14-18)
[2023-06-27 05:23] LABS: Basophils % 0.4 %; Eosinophils # 0.2 10^3/uL (0.0-0.8); Hematocrit 36.9 % (42.0-52.0); Hemoglobin 11.2 g/dL (11.7-16.6); Lymphocytes # 1.8 10^3/uL (0.8-4.8); Lymphocytes % 33.6 %; Mean Corpuscular HGB Conc 30.4 g/dL (30.0-36.0); Mean Corpuscular Hemoglobin 28.8 pg (28.0-34.0); Mean Corpuscular Volume 94.9 fl (80-94); Mean Platelet Volume 9.2 fL (7.4-10.4); Monocytes # 0.6 10^3/uL (0.2-0.9); Monocytes % 11.6 %; Neutrophils # 2.73 10^3/uL (1.8-7.7); Neutrophils % 51.2 %; Nucleated Red Blood Cells % 0 %; Platelet Count 193 10^3/cmm (130-400); Red Blood Count 3.89 10^6/uL (4.1-5.3); White Blood Count 5.3 10^3/uL (4.0-10.0)
[2023-06-27 05:40] LABS: Estmated Average Glucose 97
[2023-06-27 05:53] LABS: Alanine Aminotransferase 10 U/L (0-41); Albumin Level 3.2 g/dL (3.5-5.2); Alkaline Phosphatase 77 U/L (40-130); Anion Gap 12.3 (5-19); Aspartate Amino Transferase 11 U/L (0-40); Blood Urea Nitrogen 16 mg/dL (8-23); Calcium 8.6 mg/dL (8.5-10.5); Carbon Dioxide 26 mmol/L (22-29); Chloride 106 mmol/L (98-107); Globulin 2.4 g/dL (1.3-4.6); Glomerular Filtration Rate 74.5 mL/min (90-130); Glucose 100 mg/dL (65-115); Osmolality Calculated 291 mOsm/kg (285-295); Phosphorus 2.5 mg/dL (2.5-4.5); Potassium 4.3 mmol/L (3.5-5.1); Sodium 140 mmol/L (136-145); Total Bilirubin 0.2 mg/dL (0.15-1.2); Total Protein 5.6 g/dL (6.6-8.7)
[2023-06-27 05:54] LABS: Chol HDL Ratio 3.87 mg/dL (1.0-5.00); Cholesterol 174 mg/dL (0-200); HDL Cholesterol 45 mg/dL (60-100); LDL Cholesterol Calculated 97 mg/dL (50-129); LDL HDL Ratio 2.16 RATIO (0.00-3.22); Magnesium 1.8 mg/dL (1.7-2.3); Triglycerides 159 mg/dL (0-150); VLDL Cholestrol Calculation 32 mg/dL (0-30)
[2023-06-27 06:09] LABS: Folate Level 7.2 ng/mL (4.5-32.2)
[2023-06-27] MEDS: budesonide 0.5 mg/2 mL Neb INHALATION ×2 (07:55→20:17)
[2023-06-27] MEDS: pantoprazole DR 40 mg Tablet PO (09:55)
[2023-06-27] MEDS: aspirin 81 mg EC Tablet PO (09:55)
[2023-06-27] MEDS: potassium chloride ER 20 mEq Tablet 40 MEQ PO ×2 (09:55→17:26)
[2023-06-27] MEDS: ranolazine (12HR) 500 mg Tablet PO ×2 (09:56→17:27)
[2023-06-27] MEDS: bumetanide 1 mg Tablet 2 MG PO (09:56)
[2023-06-27 13:34] LABS: ABG PH Result 7.31 (7.35-7.45); Base Excess ABG 4.6 mmol/L (-2.0-2.0); Blood Gas Allen Test Pos; Blood Gas Operator Identificat WALCI; Blood Gas Sample Site Radial, right; Blood Gas Sample Type Arterial; Carboxyhemoglobin 1.6 %THgb (0.4-20.1); HCO3 ABG 32.6 mmol/L (22-26); HGB O2 Sat 96.7 % (95-100); Ionized Calcium Level - ABG 1.2 mmol/L (1.1-1.4); Methemoglobin 0.6 % (0.4-1.5); Oxygen Device NC; Oxygen Saturation ABG 98.9; PO2 ABG 97.9 mmHg (80.0-100.0); Potassium Level - ABG 3.6 mmol/L (3.5-5.0); Total Hemoglobin 12.4 g/dL (14-18)
[2023-06-27 13:36] LABS: ABG PCO2 64.6 mmHg (35-45)
--- NOTE | 2023-06-27 14:37 | P.PN_ITS ---
Subjective Subjective: No acute events overnight. Patient was on AVAPS all night. Appreciate ABG done today morning which shows improvement in hypercapnia and respiratory acidosis. Patient was on AVAPS setting of PEEP of 8, rate of 21 vital capacity of 450, pressure max of 32. On examination he is awake and alert with at bedside. Denies any nausea vomiting, headache. Asking when can he be discharged. Has remained hemodynamically stable and afebrile. Saturating around 100% on 2 L oxygen supplementation Vitals/I&O/Wt Last Vital Signs Temp 98.4 F 06/27/23 11:40 Pulse 76 06/27/23 13:51 Resp 16 06/27/23 13:46 BP 137/72 06/27/23 11:40 Pulse Ox 99 06/27/23 13:46 O2 Del Method Nasal Cannula 06/27/23 13:46 O2 Flow Rate 1 06/27/23 13:46 FiO2 30 06/26/23 15:18 06/26/23 06/27/23 06/27/23 22:59 06:59 14:59 Intake Total 360 / 360 440 / 800 840 / 840 Output Total 400 / 400 1050 / 1050 Balance 360 / 360 40 / 400 -210 / -210 Weight last 48 hrs Weight 95.254 kg Physical Exam Narrative: General: No acute distress, AO x3 HEENT: PERRLA, pupils bilaterally equal and reactive Chest: Bilateral bronchial breath sounds all over lung bryant, decreased air entry all over lung bryant CVS: S1-S2 regular, no murmurs, no tachycardia, no gallops, no rubs Abdomen: Soft, nontender, no organomegaly, bowel sounds present Neuro: No focal deficits, no facial deformity, AO x3, power 5/5 in all limbs Data 06/27/23 04:55 06/27/23 04:55 Micro: Microbiology 06/26/23 16:54 MRSA Culture - Final Nose A&P Assessment and plan (1) Acute and chronic respiratory failure with hypercapnia: Unknown etiology. Could be secondary to underlying possible infection though u nlikely as patient does not have any leukocytosis or fever or any history. Could be secondary to congestive heart failure though proBNP is only 59 and patient does not have any history of orthopnea/PND or edema. Could be secondary polypharmacy in setting of Diamox 250 mg twice daily. Could also be because of being on high oxygen supplementation as most of her saturations have remained between 99-100. Have asked patient to get his home AVAPS machine so that titration can be done on the same machine overnight. ABG in afternoon today and then tomorrow a.m. a.m. while on the AVAPS. DuoNebs every 6 hour, budesonide twice daily. Continue home dose of Bumex. Hold off on steroids. Target oxygen supplementation between 88 to 90%. Wean daytime and overnight oxygen accordingly. (2) Altered mental status: Resolved. INsetting of hypercapnic respiratory failure. Seems to be coming back to baseline currently though slightly drowsy. (3) Acute exacerbation of chronic obstructive airways disease: (4) Congestive heart failure: No exacerbation. Last echocardiogram from February 2022 showed EF of 65% with RVSP of 11.6 mmHg. Qualifiers: Heart failure type: diastolic Heart failure chronicity: chronic Qualified Code(s): I50.32 - Chronic diastolic (congestive) heart failure Plan CODE STATUS: Discussed in detail with the patient and spouse at bedside. Patient does not want to be on ventilator management of chest compressions. DNR/DNI. Cardiac diet Protonix for PUD prophylaxis Lovenox for DVT prophylaxis. Plan for the day: Keep on weaning oxygen documentation keeping saturation between 88 to 90%. Repeat ABG in afternoon. AVAPS overnight on current settings. Repeat ABG in AM. Repeat CBC, CMP in AM. Monitoring bicarb given we are holding off on patient's Diamox in setting of contraction alkalosis leading to respiratory compensatory acidosis. Discharge plan: Plan for discharge within next 24 hours if patient remains hemodynamically, medically stable on current oxygen supplementation. Attestations Medical Necessity Statement*: Requires further hospitalization for management of acute on chronic hypercapnic respiratory failure as his oxygen supplementation and AVAPS settings are changed and underlying pneumonia and CHF is ruled out Diagnoses Acute and chronic respiratory failure with hypercapnia J96.22 Altered mental status R41.82 Acute exacerbation of chronic obstructive airways disease J44.1 Congestive heart failure I50.32 Heart failure type: diastolic Heart failure chronicity: chronic
[2023-06-27] MEDS: enoxaparin 40 mg/0.4 mL Syringe SUBCUT (17:28)
[2023-06-27] MEDS: trazodone 150 mg Tablet PO (21:01)
[2023-06-28] VITALS (10 sets, daily range): BP systolic 112–124; BP diastolic 70–74; PULSE 57–87; RESP 16–18; TEMP 36.4–36.6; O2SAT 90–99
[2023-06-28] MEDS: ipratropium-albuterol 3 mL Neb INHALATION ×2 (02:20→08:28)
[2023-06-28 05:53] LABS: Basophils % 0.4 %; Eosinophils # 0.2 10^3/uL (0.0-0.8); Hematocrit 37.6 % (42.0-52.0); Hemoglobin 11.5 g/dL (11.7-16.6); Lymphocytes # 1.8 10^3/uL (0.8-4.8); Lymphocytes % 32.4 %; Mean Corpuscular HGB Conc 30.6 g/dL (30.0-36.0); Mean Corpuscular Hemoglobin 28.5 pg (28.0-34.0); Mean Corpuscular Volume 93.3 fl (80-94); Mean Platelet Volume 9.4 fL (7.4-10.4); Monocytes # 0.7 10^3/uL (0.2-0.9); Monocytes % 11.9 %; Neutrophils # 2.94 10^3/uL (1.8-7.7); Neutrophils % 52.1 %; Nucleated Red Blood Cells % 0 %; Platelet Count 208 10^3/cmm (130-400); Red Blood Count 4.03 10^6/uL (4.1-5.3); Red Cell Distribution Width 12.9 % (12.1-15.1); White Blood Count 5.6 10^3/uL (4.0-10.0)
[2023-06-28 06:21] LABS: Alanine Aminotransferase 10 U/L (0-41); Albumin Level 3.4 g/dL (3.5-5.2); Alkaline Phosphatase 79 U/L (40-130); Aspartate Amino Transferase 10 U/L (0-40); Blood Urea Nitrogen 18 mg/dL (8-23); Calcium 8.7 mg/dL (8.5-10.5); Carbon Dioxide 29 mmol/L (22-29); Chloride 105 mmol/L (98-107); Globulin 2.1 g/dL (1.3-4.6); Glomerular Filtration Rate 84.2 mL/min (90-130); Glucose 103 mg/dL (65-115); Osmolality Calculated 296 mOsm/kg (285-295); Sodium 142 mmol/L (136-145); Total Bilirubin 0.2 mg/dL (0.15-1.2); Total Protein 5.5 g/dL (6.6-8.7)
[2023-06-28 06:23] LABS: Magnesium 1.8 mg/dL (1.7-2.3)
[2023-06-28] MEDS: pantoprazole DR 40 mg Tablet PO (08:17)
[2023-06-28] MEDS: potassium chloride ER 20 mEq Tablet 40 MEQ PO (08:17)
[2023-06-28] MEDS: aspirin 81 mg EC Tablet PO (08:17)
[2023-06-28] MEDS: ranolazine (12HR) 500 mg Tablet PO (08:18)
[2023-06-28] MEDS: budesonide 0.5 mg/2 mL Neb INHALATION (08:28)
[2023-06-28 10:52] LABS: Arterial Blood Gas Hematocrit 36.8 % (42-52); Blood Gas Allen Test Pos; Blood Gas Operator Identificat glc; Blood Gas Sample Site Radial, right; Blood Gas Sample Type Arterial; Carboxyhemoglobin 1.7 %THgb (0.4-20.1); HCO3 ABG 30.8 mmol/L (22-26); HGB O2 Sat 96.5 % (95-100); Ionized Calcium Level - ABG 1.3 mmol/L (1.1-1.4); Methemoglobin 0.8 % (0.4-1.5); Oxygen Device NC; Oxygen Saturation ABG 98.9
[2023-06-28 10:53] LABS: Blood Gas LPM 1.5 %
[2023-06-28 10:54] LABS: ABG PCO2 62.2 mmHg (35-45)
--- NOTE | 2023-06-28 12:05 | P.DS_ITS ---
Discharge Providers Date of Admission: 06/26/23 13:25 Date of Discharge: June 28, 2023 Attending Provider at Admission: Christiano Tucker MD Attending Provider at Discharge: Christiano Tucker MD Primary Care Provider: Saji York Diagnoses at Discharge Discharge Diagnosis (1) Acute and chronic respiratory failure with hypercapnia: Status: Acute (2) Altered mental status: Status: Acute (3) Acute exacerbation of chronic obstructive airways disease: Status: Acute (4) Congestive heart failure: Status: Acute Qualifiers: Heart failure chronicity: chronic Heart failure type: diastolic Qualified Code(s): I50.32 - Chronic diastolic (congestive) heart failure Reason for Visit Reason for Visit: dr consuelo masters, blood work Hospital Course Hospital Course Sukumar Bangura is a 68 year old male with past medical history of congestive heart failure, obesity, scoliosis, end-stage COPD on 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 Patient was admitted about 3 weeks ago for 3 nights for hypercapnic respiratory failure.? Since then patient was feeling drowsy at home and his BiPAP settings were changed by outpatient social service technician as an outpatient.? However after changing the settings patient felt better for 2 to 3 days though afterwards as per his he started having drowsiness and few episodes of confusion again.? Today when he was seen in the pulmonology office patient was found to be drowsy and he was sent to the ER. In the ER ABG was done which showed a pH of 7.25 with pCO2 of 64.9, pO2 of 104. Patient was admitted to the hospital for evaluation and management of acute on chronic hypercapnic respiratory failure. Medical reconciliation was done and it does seem that patient was on Diamox 250 mg twice daily. His AVAPS setting on home machine was reviewed. During hospitalization congestive heart failure, pneumonia were ruled out. Multiple settings were changed on his AVAPS and Diamox was withheld during hospitalization. ABG started showing improvement on reset AVAPS setting. It is deemed patient's symptoms are most likely in setting of Diamox excessive use along with high oxygen supplementation at home then required and changed to AVAPS setting. He has been discharged in hemodynamically stable condition with advised to take Diamox to 50 mg every other day, to remain on room air at rest and on 2 L on exertion and during sleep. AVAPS setting have been changed to pressure support of 18, PEEP of 8, respirate of 20, pressure support max of 32. Settings have b een sent over to patient's outpatient respiratory therapist. He is not discharging medically stable condition. Plan has been discussed with the patient and patient's spouse at bedside. Physical Exam Narrative: General: No acute distress, AO x3, on nasal canulla HEENT: PERRLA, pupils bilaterally equal and reactive Chest: Bilateral bronchial breath sounds all over lung bryant, decreased air entry all over lung bryant CVS: S1-S2 regular, no murmurs, no tachycardia, no gallops, no rubs Abdomen: Soft, nontender, no organomegaly, bowel sounds present Neuro: No focal deficits, no facial deformity, AO x3, power 5/5 in all limbs Discharge Data Studies Completed and Pending Completed Studies During Hospitalization Category Date Time Status XR chest 1V portable [id number] Stat Exams 06/26/23 11:59 Completed Pending at discharge Category Date Time Status MAG [Magnesium] AM LABS Lab 06/29/23 04:00 Ordered Radiology Impressions Chest X-Ray 06/26/23 11:59 IMPRESSION: Stable chest. No active disease. Microbiology 06/26/23 15:22 Unknown Source Legionella Urinary Antigen - Final 06/26/23 15:22 Urine Kidney Bacterial Antigens - Final 06/26/23 16:54 Nose MRSA Culture - Final Laboratory Results WBC 5.6 10^3/uL (4.0-10.0) 06/28/23 05:14 RBC 4.03 10^6/uL (4.1-5.3) L 06/28/23 05:14 Hgb 11.5 g/dL (11.7-16.6) L 06/28/23 05:14 Hct 37.6 % (42.0-52.0) L 06/28/23 05:14 MCV 93.3 fl (80-94) 06/28/23 05:14 MCH 28.5 pg (28.0-34.0) 06/28/23 05:14 MCHC 30.6 g/dL (30.0-36.0) 06/28/23 05:14 RDW 12.9 % (12.1-15.1) 06/28/23 05:14 Plt Count 208 10^3/cmm (130-400) 06/28/23 05:14 MPV 9.4 fL (7.4-10.4) 06/28/23 05:14 Neut % (Auto) 52.1 % 06/28/23 05:14 Lymph % (Auto) 32.4 % 06/28/23 05:14 [place] % (Auto) 11.9 % 06/28/23 05:14 Eos % (Auto) 3.0 % 06/28/23 05:14 Baso % (Auto) 0.4 % 06/28/23 05:14 Neut # (Auto) 2.94 10^3/uL (1.8-7.7) 06/28/23 05:14 Lymph # (Auto) 1.8 10^3/uL (0.8-4.8) 06/28/23 05:14 [place] # (Auto) 0.7 10^3/uL (0.2-0.9) 06/28/23 05:14 Eos # (Auto) 0.2 10^3/uL (0.0-0.8) 06/28/23 05:14 Baso # (Auto) 0.0 10^3/uL (0.0-0.1) 06/28/23 05:14 Nucleated RBC % (auto) 0 % 06/28/23 05:14 Nucleated RBCs # 0.0 /100WBC 06/28/23 05:14 Specimen Type Arterial 06/28/23 10:43 Sample Site Radial, right 06/28/23 10:43 ABG pH 7.30 (7.35-7.45) L 06/28/23 10:43 ABG pCO2 62.2 mmHg (35-45) H* 06/28/23 10:43 ABG pO2 106.0 mmHg (80.0-100.0) H 06/28/23 10:43 ABG HCO3 30.8 mmol/L (22-26) H 06/28/23 10:43 ABG O2 Saturation 98.9 06/28/23 10:43 ABG Base Excess 3.0 mmol/L (-2.0-2.0) H 06/28/23 10:43 Humberto Test Pos 06/28/23 10:43 A-a O2 Gradient Not Reportable 06/28/23 10:43 Hematocrit 36.8 % (42-52) L 06/28/23 10:43 Hgb O2 Saturation 96.5 % (95-100) 06/28/23 10:43 Carboxyhemoglobin 1.7 %THgb (0.4-20.1) 06/28/23 10:43 Methemoglobin 0.8 % (0.4-1.5) 06/28/23 10:43 Total Hemoglobin 12.0 g/dL (14-18) L 06/28/23 10:43 Sodium 142.0 mmol/L (131-143) 06/28/23 10:43 Potassium 4.0 mmol/L (3.5-5.0) 06/28/23 10:43 Glucose 130.0 mg/dL (70-115) H 06/28/23 10:43 Ionized Calcium 1.3 mmol/L (1.1-1.4) 06/28/23 10:43 O2 Delivery Device Nc 06/28/23 10:43 O2 Liters/Min 1.5 % 06/28/23 10:43 FiO2 25.0 % 06/28/23 10:43 [employer] ID [id number] 06/28/23 10:43 Sodium 142 mmol/L (136-145) 06/28/23 05:14 Potassium 4.0 mmol/L (3.5-5.1) 06/28/23 05:14 Chloride 105 mmol/L (98-107) 06/28/23 05:14 Carbon Dioxide 29 mmol/L (22-29) 06/28/23 05:14 Anion Gap 12.0 (5-19) 06/28/23 05:14 BUN 18 mg/dL (8-23) 06/28/23 05:14 Creatinine 0.9 mg/dL (0.7-1.2) 06/28/23 05:14 GFR Calculation 84.2 mL/min (90-130) L 06/28/23 05:14 Glucose 103 mg/dL (65-115) 06/28/23 05:14 Estimat Average Glucose 97 06/27/23 04:55 Hemoglobin A1c 5.0 % (4.0-6.0) 06/27/23 04:55 Calculated Osmolality 296 mOsm/kg (285-295) H 06/28/23 05:14 Calcium 8.7 mg/dL (8.5-10.5) 06/28/23 05:14 Phosphorus 2.5 mg/dL (2.5-4.5) 06/27/23 04:55 Magnesium 1.8 mg/dL (1.7-2.3) 06/28/23 05:14 Iron 51 ug/dL (59-158) L 06/26/23 14:22 TIBC 284 mcg/dl 06/26/23 14:22 % Saturation 17.9 % (20-50) L 06/26/23 14:22 Unsat Iron Binding 233 ug/dL (112-347) 06/26/23 14:22 Total Bilirubin 0.2 mg/dL (0.15-1.2) 06/28/23 05:14 AST 10 U/L (0-40) 06/28/23 05:14 ALT 10 U/L (0-41) 06/28/23 05:14 Alkaline Phosphatase 79 U/L (40-130) 06/28/23 05:14 Troponin T Baseline 9 ng/L (0-15) 06/26/23 12:18 Troponin T 120 Minute 9.50 ng/L (0-15) 06/26/23 14:22 Delta Troponin T 0.50 ABS# (0-10) 06/26/23 14:22 Troponin T Hi Sens 6Hr 8.35 ng/L (0-15) 06/26/23 18:36 Troponin T Hi Sens 6Hr Delta -0.65 ng/L (0-12) L 06/26/23 18:36 NT-Pro-B Natriuret Pep 59 pg/mL (0-125) 06/26/23 12:18 Total Protein 5.5 g/dL (6.6-8.7) L 06/28/23 05:14 Albumin 3.4 g/dL (3.5-5.2) L 06/28/23 05:14 Globulin 2.1 g/dL (1.3-4.6) 06/28/23 05:14 Triglycerides 159 mg/dL (0-150) H 06/27/23 04:55 Cholesterol 174 mg/dL (0-200) 06/27/23 04:55 LDL Cholesterol, Calc 97 mg/dL (50-129) 06/27/23 04:55 Total VLDL Cholesterol 32 mg/dL (0-30) H 06/27/23 04:55 HDL Cholesterol 45 mg/dL (60-100) L 06/27/23 04:55 LDL/HDL Ratio 2.16 RATIO (0.00-3.22) 06/27/23 04:55 Cholesterol/HDL Ratio 3.87 mg/dL (1.0-5.00) 06/27/23 04:55 Vitamin B12 382 pg/mL (232-1245) 06/26/23 14:22 Folate 7.2 ng/mL (4.5-32.2) 06/27/23 04:55 Procalcitonin 0.09 ng/mL (0-0.5) 06/26/23 14:22 TSH 1.58 uIU/mL (0.27-4.20) 06/26/23 12:18 Urine Color Cancelled 06/26/23 15:22 Urine Color Yellow (Yellow) 06/26/23 15:22 Urine Appearance Cancelled 06/26/23 15:22 Urine Appearance Cloudy (CLEAR) A 06/26/23 15:22 Urine pH 7 (5-7) 06/26/23 15:22 Urine pH Cancelled 06/26/23 15:22 Ur Specific [place] 1.005 (1.005-1.030) 06/26/23 15:22 Ur Specific [place] Cancelled 06/26/23 15:22 Urine Protein Cancelled 06/26/23 15:22 Urine Protein Neg (Negative) 06/26/23 15:22 Urine Glucose (UA) Cancelled 06/26/23 15:22 Urine Glucose (UA) Norm (Normal) 06/26/23 15:22 Urine Ketones Cancelled 06/26/23 15:22 Urine Ketones Negative (Negative) 06/26/23 15:22 Urine Blood Cancelled 06/26/23 15:22 Urine Blood Neg (Negative) 06/26/23 15:22 Urine Nitrate Cancelled 06/26/23 15:22 Urine Nitrate Negative (Negative) 06/26/23 15:22 Urine Bilirubin Cancelled 06/26/23 15:22 Urine Bilirubin Neg (Negative) 06/26/23 15:22 Prot Sulfosalicylic Acd Cancelled 06/26/23 15:22 Urine Urobilinogen Cancelled 06/26/23 15:22 Urine Urobilinogen Norm mg/dL (Negative) 06/26/23 15:22 Ur Leukocyte Esterase Cancelled 06/26/23 15:22 Ur Leukocyte Esterase Negative (Negative) 06/26/23 15:22 Urine RBC None /hpf (0-2) 06/26/23 15:22 Urine WBC None /hpf (0-5) 06/26/23 15:22 Ur Squamous Epith Cells 0-4 /hpf (0-5) H 06/26/23 15:22 Amorphous Sediment 4+ /hpf 06/26/23 15:22 Urine Bacteria None /hpf (NONE) 06/26/23 15:22 Urine Mucus 1+ /hpf 06/26/23 15:22 Vitals Last Vital Signs Temp 98 F 06/28/23 11:19 Pulse 68 06/28/23 11:19 Resp 18 06/28/23 11:19 BP 124/73 06/28/23 11:19 Pulse Ox 98 06/28/23 11:19 O2 Del Method Nasal Cannula 06/28/23 11:19 O2 Flow Rate 1 06/28/23 08:00 FiO2 30 06/26/23 15:18 Discharge Plan Discharge Patient Disposition: Home Condition: Stable Prescriptions: Continued ranolazine 500 mg tablet extended release 12 hr 500 mg PO BID aspirin 81 mg tablet,delayed release (DR/EC) 81 mg PO DAILY Qty: 30 0RF cetirizine 10 mg Tablet 10 mg PO DAILY hydrocodone-acetaminophen 5-325 mg tablet 1 tab PO Q8H PRN (Reason: Pain) bumetanide 2 mg Tablet See Rx Instructions .ROUTE .COMPLEX Rx Instructions: 2 MG ORALLY ON FRIDAY, FRIDAY, FRIDAY, AND FRIDAY torsemide 10 mg Tablet 10 mg PO DAILY PRN (Reason: Weight Gain) trazodone 150 mg tablet 150 mg PO BEDTIME albuterol sulfate 2.5 mg /3 mL (0.083 %) Solution For Nebulization 2.5 mg INHALATION QID PRN (Reason: Shortness Of Breath) sennosides-docusate sodium [Stimulant Laxative Plus] 8.6-50 mg tablet 1 tab PO QAM fluticasone propionate 50 mcg/actuation spray,suspension 2 spray INTRANASAL DAILY potassium chloride 20 mEq tablet extended release 40 meq PO BID Changed acetazolamide 250 mg tablet 250 mg PO EVERY OTHER DAY Qty: 10 0RF Discharge Orders: Discharge Order (Routine); Ordered 06/28/23 Ordered By: Christiano Tucker Other Ambulatory Orders: DME: BIPAP (Order) Location: None Selected Ordered By: Christiano Tucker Referrals: Saji York [Primary Care Provider] - 7-10 days () Discharge Diet: Cardiac Discharge Activity: Resume usual activity and Increase activity as tolerated Patient Instructions: Congestive Heart Failure, Altered Mental Status (GEN), CHF Stoplight, Opioid Safety Discharge Attestations Time Spent in Discharge Care*: greater than 30 min Specific Discharge Activities: educating patient, educating and/or supporting family/caregiver, discussing with pcp/other providers, discussing with dependency case manager/social workers/dc planners, documenting/other paperwork and evaluating patient/reviewing data Status at Discharge: Cognitive status at discharge: cognitively intact , Behavioral status at discharge: cooperative , Functional status at discharge: other assisted ambulation , Overall status at discharge: patient is progressing back to baseline Quality Metrics Clinical Quality Measures [ No reported AMI, CVA or VTE this stay] Coding Level of Care Code 67000 Total time (in minutes) for Discharge: 60 Diagnoses Acute and chronic respiratory failure with hypercapnia J96.22 Altered mental status R41.82 Acute exacerbation of chronic obstructive airways disease J44.1 Congestive heart failure I50.32 Heart failure chronicity: chronic Heart failure type: diastolic
== END 2023-06-28 13:10 | disposition home or self-care (01) ==
LOC: ER 13:56 → MEDSURG 15:42
PROVIDERS: Emergency Medicine; Admitting Provider Student in an Organized Health Care Education/Training Program; Emergency Provider Emergency Medicine; PCP Family Medicine; Visit Provider Student in an Organized Health Care Education/Training Program
DX: J96.22 Acute and chronic respiratory failure with hypercapnia (principal); R41.82 Altered mental status, unspecified; J44.1 Chronic obstructive pulmonary disease with (acute) exacerbation; I50.32 Chronic diastolic (congestive) heart failure; G47.33 Obstructive sleep apnea (adult) (pediatric); I45.10 Unspecified right bundle-branch block; Z79.82 Long term (current) use of aspirin; Z79.899 Other long term (current) drug therapy; Z87.891 Personal history of nicotine dependence; Z99.81 Dependence on supplemental oxygen
CPT/HCPCS: 36415; 36600; 71045; 80051; 80053; 80061; 81001; 82330; 82607; 82746; 82805; 83036; 83540; 83550; 83735; 83880; 84100; 84145; 84443; 84484; 85025; 86403; 87449; 87641; 93005; 94640; 94660; 94664; 94762; 96372; 99215; 99285; G0378; J1650; J7626

== ENCOUNTER → 2023-10-08 09:58 | Outpatient (BNVA) | payer MEDICARE, MEDICAID, SELFPAY | PROVIDERS: PCP Family Medicine; Visit Provider Internal Medicine Pulmonary Disease | DX: J96.22 Acute and chronic respiratory failure with hypercapnia (principal); J98.4 Other disorders of lung; J44.9 Chronic obstructive pulmonary disease, unspecified; I50.32 Chronic diastolic (congestive) heart failure; R42 Dizziness and giddiness; Z99.3 Dependence on wheelchair; M41.80 Other forms of scoliosis, site unspecified; G47.33 Obstructive sleep apnea (adult) (pediatric); F17.220 Nicotine dependence, chewing tobacco, uncomplicated; Z99.81 Dependence on supplemental oxygen | CPT/HCPCS: 99214 ==

== ENCOUNTER 2023-10-27 12:22 | Outpatient (CLI) | payer MEDICARE, SELFPAY ==
--- NOTE | 2023-10-27 12:15 | USCV_ITS ---
Sukumar Bangura Age: 68 Gender: M : 1955 Exam Date: 10/27/2023 12:36 Ordering Phys: Delta Petit MD Technologist: [place] [facility] [place] Indication: bruit Risk Factors: Previous Vascular Surgery: Right Brachial BP: / Left Brachial BP: / Right Left Velocity (cm/s) Spectral Plaque Velocity (cm/s) Spectral Plaque Syst/Diast Broadening Syst/Diast Broadening 94.80/ 9.90 Mid CCA 73.90 / 17.60 77.20/ 25.40 Distal CCA 63.90 / 17.60 92.60/ 18.70 Prox ICA 92.60 / 20.90 54.30/ 21.90 Mid ICA 98.10 / 25.40 53.90/ 20.60 Distal ICA 86.00 / 22.10 84.90 ECA 114.70 0.98 ICA/CCA 1.33 Antegrade Vertebral Not Visualized 48.50/ 18.70 cm/s / cm/s Tri Subclavian Tri 127.9 201.5 0 0 FINDINGS this is a limited study, pt with very large short neck, left vert not seen with flow but thi maybe due to technical difficult study. no stenosis identified, f/u wih other modality if needed. CONCLUSIONS Technically limited study Right ICA stenosis <50%. Left ICA stenosis <50%. Normal antegrade Doppler flow noted in the right vertebral artery. No flow left vertebral artery Peña Jordan MD (Electronically Signed) Final Date: 27 October 2023 14:39 S
--- NOTE | 2023-10-27 12:45 | USCV_ITS ---
Sukumar Bangura Age: 68 Gender: M : 1955 Exam Date: 10/27/2023 12:54 Ordering Phys: Delta Petit MD Technologist: CT Exam Location: [facility] – [place] Indication: sob copd BP: 126 / 80 HR: 74 Rhythm: Sinus Technical Quality: Adequate MEASUREMENTS (Male / Female) Normal Values 2D ECHO LV Diastolic Diameter PLAX 4.0 cm 4.2 - 5.9 / 3.9 - 5.3 cm LV Systolic Diameter PLAX 2.5 cm IVS Diastolic Thickness 1.2 cm 0.6 - 1.0 / 0.6 - 0.9 cm IVS Systolic Thickness 1.8 cm LVPW Diastolic Thickness 1.1 cm 0.6 - 1.0 / 0.6 - 0.9 cm LVPW Systolic Thickness 1.5 cm LVOT Diameter 2.0 cm LV Ejection Fraction 2D Teich 70.3 % LV Ejection Fraction MOD 2C 57.4 % LV Ejection Fraction 2C AL 58.4 % LA Diameter 3.4 cm M-MODE Aortic Annulus Diameter 3.5 cm LA Ao Ratio MM 1.1 MV E Point Septal Separation 1.1 cm DOPPLER AV Peak Velocity 130.0 cm/s LVOT Peak Velocity 92.0 cm/s AV Area Cont Eq vti 2.7 cm squared AV Area Cont Eq pk 2.2 cm squared MV Area PHT 3.9 cm squared Mitral E to A Ratio 0.9 MV E' Velocity 40.0 cm/s Mitral E to MV E' Ratio 7.5 Mitral E to LV E' Lateral Ratio 6.2 Mitral E to LV E' Septal Ratio 9.4 TR Peak Velocity 208.7 cm/s TR Peak Gradient 17.4 mmHg TV Peak E Velocity 72.0 cm/s Right Atrial Pressure 3.0 mmHg Pulmonary Artery Systolic Pressu 20.4 mmHg RV Acceleration Time 0.1 s FINDINGS Left Ventricle Normal left ventricular size and systolic function, EF 59 %. Mild left ventricular hypertrophy. No regional wall motion abnormalities. Technically difficult study because of poor ultrasonic window Right Ventricle The right ventricle is normal in size and function. Right Atrium The right atrium is normal in size. Left Atrium The left atrium is normal in size. Mitral Valve No gross abnormalities noted Aortic Valve Trace aortic valve regurgitation. Thickened aortic valve. Tricuspid Valve No gross abnormalities noted Pulmonic Valve No gross abnormalities noted Pericardium No pericardial effusion. Aorta Normal ascending aorta dimension. IVC The inferior vena cava appears normal. CONCLUSIONS Normal left ventricular size and systolic function, EF 59 %. Mild left ventricular hypertrophy. No regional wall motion abnormalities. Trace aortic valve regurgitation. Thickened aortic valve. There is no pericardial effusion. There are no intracardiac masses. Technically difficult study because of poor ultrasonic window. Dr Chanda Anders MD FACC (Electronically Signed) Final Date: 27 October 2023 14:02 S
== END 2023-10-27 12:23 | disposition home or self-care (01) ==
LOC: RAD 12:23
PROVIDERS: PCP Family Medicine; Visit Provider Internal Medicine Pulmonary Disease
DX: Z09 Encounter for follow-up examination after completed treatment for conditions other than malignant neoplasm (principal); R09.89 Other specified symptoms and signs involving the circulatory and respiratory systems; R06.02 Shortness of breath; J44.9 Chronic obstructive pulmonary disease, unspecified; I51.7 Cardiomegaly; I65.23 Occlusion and stenosis of bilateral carotid arteries
CPT/HCPCS: 93306; 93880

== ENCOUNTER 2023-11-17 12:00 | Emergency (ER) | payer MEDICARE, MEDICAID, SELFPAY ==
[2023-11-17 12:18] VITALS: BP 124/70; PULSE 81; RESP 18; TEMP 36.6; O2SAT 97; BMI 43.0
[2023-11-17 12:53] VITALS: BP 114/63; PULSE 81; RESP 20; O2SAT 98
--- NOTE | 2023-11-17 13:41 | ED_ITS ---
HPI - Extremity Problem 2 General: Chief complaint: Extremity Problem,Nontraumatic Stated complaint: left side lower half numbness Time Seen by Provider: 11/17/23 12:55 Source: patient Mode of arrival: ambulatory History of Present Illness: 68-year-old male with a history of chron ic back pain complaining of back pain and pain on the left lateral portion of his thigh extending from the belt line distally towards the knee no pain distal to that. No urinary retention no fecal incontinence. It initially was painful and is gone through various stages being painful and numb. MD Complaint: extremity pain Onset (ago): day(s) (1) Pain Consistency: constant Location: left and lower extremity Associated symptoms: Deny arthralgias, chest pain, fever(s), myalgias, rash or short of breath Review of Systems 2 Const: Denies: fever(s) or chills Card: Denies: chest pain Resp: Denies: dyspnea GI: Denies: abdominal pain : Denies: dysuria, urinary frequency or urinary urgency Musc: Reports: back pain and extremity pain; Denies: neck pain Skin/Breast: Denies: rash PFSH ED 2 PFSH: Medical History COVID-19 Acute kidney injury superimposed on chronic kidney disease CELESTE (obstructive sleep apnea) Obesity Chronic hypercapnic respiratory failure Restrictive lung disease due to kyphoscoliosis Congestive heart failure Tobacco chew use Fixation hardware in spine Acquired arm deformity GERD (gastroesophageal reflux disease) Kyphoscoliosis Hyperglycemia Scoliosis COPD (chronic obstructive pulmonary disease) Surgical History History of [place] fundoplication History of appendectomy H/O arthroscopy of shoulder Hx of cholecystectomy Family History Father Cancer Social History Smoking and tobacco/nicotine status: former use of tobacco/nicotine Quit status (tobacco/nicotine): has quit using Year quit tobacco: 2010 Former quit date comment: 2ppd x 10 years Second hand smoke exposure: No Alcohol intake: never Substance/Drug Use: never Lives independently: Yes Household members: spouse Housing: House Marital status: service: No Current occupational status: employed 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 Pets and animals: Yes Do you think of yourself as: Straight/Heterosexual Current gender identity: Male Physical Exam 2 Const: COMMON NORMALS: no acute distress GENERAL APPEARANCE: cooperative and comfortable ORIENTATION/CONSCIOUSNESS: Yes awake, Yes oriented to person, Yes oriented to place and Yes oriented to time HENMT: COMMON NORMALS: normocephalic, atraumatic and hearing grossly normal bilaterally HEAD & SCALP: normocephalic and atraumatic Resp: COMMON NORMALS: normal respiratory effort, No retractions, No use of accessory muscles and clear to auscultation bilaterally AUSCULTATION: clear to auscultation bilaterally Cardio: COMMON NORMALS: regular rate, regular rhythm and No murmurs present (Cardio) RATE: regular rate RHYTHM: regular rhythm GI: COMMON NORMALS: Soft to palpation and No hepatosplenomegaly present A USCULTATION: Yes normoactive bowel sounds PALPATION: Yes Soft to palpation, No Tenderness to palpation present (GI), No Guarding due to palpation present (GI) and Yes No hepatosplenomegaly present Extremity: COMMON NORMALS: normal to inspection, capillary refill normal, no clubbing, cyanosis or edema, no calf tenderness and no pedal edema Neuro: SENSORIUM/ORIENTATION: Yes oriented to person, Yes oriented to place and Yes oriented to time Skin: COMMON NORMALS: no rashes or lesions noted GENERAL SKIN EXAM: no rashes or lesions noted Course 2 Vital Signs: Vital signs: Vital Signs Temperature 97.8 F 11/17/23 12:18 Pulse Rate 60 11/17/23 14:58 Respiratory Rate 18 11/17/23 14:58 Blood Pressure 119/62 11/17/23 14:58 Pulse Oximetry 95 11/17/23 14:58 Oxygen Delivery Me thod Nasal Cannula 11/17/23 13:44 Oxygen Flow Rate 2 11/17/23 13:44 MDM - Extremity (Nontraumatic) Medical Decision Making Labs unremarkable. Given patient's history and description symptomatically he has a lateral femoral cutaneous nerve syndrome. His discomfort is limited to the distribution of that nerve. Will put him on a course of steroids follow-up with his primary care doctor Lab Data 11/17/23 13:41 11/17/23 13:41 Laboratory Results WBC 6.53 10^3/uL (3.29-11.43) 11/17/23 13:41 RBC 4.67 10^6/uL (3.85-5.65) 11/17/23 13:41 Hgb 13.60 g/dL (11.27-16.99) 11/17/23 13:41 Hct 43.9 % (37-53) 11/17/23 13:41 MCV 94.0 fl (82-101) 11/17/23 13:41 MCH 29.1 pg (27-33) 11/17/23 13:41 MCHC 31.0 g/dL (30-55) 11/17/23 13:41 RDW 12.8 % (12.1-15.1) 11/17/23 13:41 Plt Count 224 10^3/cmm (157-399) 11/17/23 13:41 MPV 9.3 fL (7.4-10.4) 11/17/23 13:41 Neut % (Auto) 58.8 % 11/17/23 13:41 Lymph % (Auto) 27.0 % 11/17/23 13:41 [place] % (Auto) 10.7 % 11/17/23 13:41 Eos % (Auto) 2.3 % 11/17/23 13:41 Baso % (Auto) 0.6 % 11/17/23 13:41 Neut # (Auto) 3.84 10^3/uL (1.8-7.7) 11/17/23 13:41 Lymph # (Auto) 1.8 10^3/uL (0.8-4.8) 11/17/23 13:41 [place] # (Auto) 0.7 10^3/uL (0.2-0.9) 11/17/23 13:41 Eos # (Auto) 0.2 10^3/uL (0.0-0.8) 11/17/23 13:41 Baso # (Auto) 0.0 10^3/uL (0.0-0.1) 11/17/23 13:41 Nucleated RBC % (auto) 0 % 11/17/23 13:41 Nucleated RBCs # 0.0 /100WBC 11/17/23 13:41 Sodium 140 mmol/L (136-145) 11/17/23 13:41 Potassium 3.6 mmol/L (3.5-5.1) 11/17/23 13:41 Chloride 100 mmol/L (98-107) 11/17/23 13:41 Carbon Dioxide 34 mmol/L (22-29) H 11/17/23 13:41 Anion Gap 9.6 (5-19) 11/17/23 13:41 BUN 17 mg/dL (8-23) 11/17/23 13:41 Creatinine 1.0 mg/dL (0.7-1.2) 11/17/23 13:41 GFR Calculation 74.5 mL/min (90-130) L 11/17/23 13:41 Glucose 108 mg/dL (65-115) 11/17/23 13:41 Calculated Osmolality 292 mOsm/kg (285-295) 11/17/23 13:41 Calcium 9.5 mg/dL (8.5-10.5) 11/17/23 13:41 Total Bilirubin 0.2 mg/dL (0.15-1.2) 11/17/23 13:41 AST 14 U/L (0-40) 11/17/23 13:41 ALT 14 U/L (0-41) 11/17/23 13:41 Alkaline Phosphatase 103 U/L (40-130) 11/17/23 13:41 Total Protein 7.4 g/dL (6.6-8.7) 11/17/23 13:41 Albumin 4.0 g/dL (3.5-5.2) 11/17/23 13:41 Globulin 3.4 g/dL (1.3-4.6) 11/17/23 13:41 Urine Color Yellow (Yellow) 11/17/23 13:35 Urine Appearance Clear (CLEAR) 11/17/23 13:35 Urine pH 5 (5-7) 11/17/23 13:35 Ur Specific [place] 1.015 (1.005-1.030) 11/17/23 13:35 Urine Protein Neg (Negative) 11/17/23 13:35 Urine Glucose (UA) Norm (Normal) 11/17/23 13:35 Urine Ketones Negative (Negative) 11/17/23 13:35 Urine Blood Neg (Negative) 11/17/23 13:35 Urine Nitrate Negative (Negative) 11/17/23 13:35 Urine Bilirubin Neg (Negative) 11/17/23 13:35 Urine Urobilinogen Norm mg/dL (Negative) 11/17/23 13:35 Ur Leukocyte Esterase Negative (Negative) 11/17/23 13:35 No radiology studies performed this visit Discharge Plan Discharge Patient Disposition: Home Clinical Impression: Lateral femoral cutaneous neuropathy Condition: Stable Prescriptions: New prednisone 20 mg tablet 20 mg PO TID Qty: 15 0RF Rx Instructions: 1 p.o. 3 times daily x3 days, 1 p.o. twice daily x2 days, 1 p.o. daily x2 days No Action ranolazine 500 mg tablet extended release 12 hr 500 mg PO BID aspirin 81 mg tablet,delayed release (DR/EC) 81 mg PO DAILY Qty: 30 0RF cetirizine 10 mg Tablet 10 mg PO DAILY hydrocodone-acetaminophen 5-325 mg tablet 1 tab PO Q8H PRN (Reason: Pain) bumetanide 2 mg Tablet See Rx Instructions .ROUTE .COMPLEX Rx Instructions: 2 MG ORALLY ON FRIDAY, FRIDAY, FRIDAY, AND FRIDAY trazodone 150 mg tablet 150 mg PO BEDTIME albuterol sulfate 2.5 mg /3 mL (0.083 %) Solution For Nebulization 2.5 mg INHALATION Q6H PRN (Reason: Shortness Of Breath) sennosides-docusate sodium [Stimulant Laxative Plus] 8.6-50 mg tablet 1 tab PO QAM fluticasone propionate 50 mcg/actuation spray,suspension 2 spray INTRANASAL DAILY potassium chloride 20 mEq tablet extended release 40 meq PO BID ondansetron HCl 4 mg tablet 4 mg PO Q8H PRN (Reason: Nausea And Vomiting) torsemide 10 mg tablet See Rx Instructions .ROUTE .COMPLEX Rx Instructions: TAKE 1 TABLET BY MOUTH TO BE USED DIRECTED OR NEEDED FOR WEIGHT GAIN GREATER THAN 3 POUNDS acetazolamide 250 mg tablet 250 mg PO BID Discharge Orders: Discharge ED (Routine); Ordered 11/17/23 Ordered By: Venkatesh Burger Referrals: Saji York [Primary Care Provider] - Discharge Diet: Usual diet Discharge Activity: Increase activity as tolerated Patient Instructions: Opioid Safety, Pain Management Activity Restrictions/Additional Instructions: Thank you for choosing [facility] for your healthcare needs today. Please realize this is an emergency room and that we are providing you with a medical screening exam and this may not be complete and all inclusive of all the testing and or work up that you may need to determine your ailment or severity of your illness. It is very important that you follow up as instructed or that you return to the Emergency Department should you have concerns or if your condition changes or worsens in any way. Follow-up with your primary care doctor as needed Coding Level of Care Code ED Trailer Truck Driver for Edwin Ward
[2023-11-17 13:44] VITALS: BP 114/63; PULSE 73; RESP 18; O2SAT 95
[2023-11-17 13:48] LABS: Add Urine Microscopic? NO; Charge for UA Resulting for Rev
[2023-11-17 13:50] LABS: Basophils % 0.6 %; Eosinophils # 0.2 10^3/uL (0.0-0.8); Eosinophils % 2.3 %; Hematocrit 43.9 % (37-53); Lymphocytes # 1.8 10^3/uL (0.8-4.8); Mean Corpuscular Hemoglobin 29.1 pg (27-33); Mean Platelet Volume 9.3 fL (7.4-10.4); Monocytes # 0.7 10^3/uL (0.2-0.9); Monocytes % 10.7 %; Neutrophils # 3.84 10^3/uL (1.8-7.7); Neutrophils % 58.8 %; Nucleated Red Blood Cells % 0 %; Platelet Count 224 10^3/cmm (157-399); Red Blood Count 4.67 10^6/uL (3.85-5.65); Red Cell Distribution Width 12.8 % (12.1-15.1); White Blood Count 6.53 10^3/uL (3.29-11.43)
[2023-11-17 14:00] LABS: Bilirubin Urine Neg (Negative); Blood Urine Neg (Negative); Glucose Urine UA Norm (Normal); Ketones Urine Negative (Negative); Leukocyte Esterase Urine Negative (Negative); Nitrate Urine Negative (Negative); Protein Urine Neg (Negative); Specific Gravity, Urine 1.015 (1.005-1.030); Urine Appearance Clear (CLEAR); Urine Color Yellow (Yellow); Urobilinogen Urine Norm (Negative); pH Urine 5 (5-7)
[2023-11-17 14:06] LABS: Alanine Aminotransferase 14 U/L (0-41); Alkaline Phosphatase 103 U/L (40-130); Anion Gap 9.6 (5-19); Aspartate Amino Transferase 14 U/L (0-40); Blood Urea Nitrogen 17 mg/dL (8-23); Calcium 9.5 mg/dL (8.5-10.5); Carbon Dioxide 34 mmol/L (22-29); Chloride 100 mmol/L (98-107); Globulin 3.4 g/dL (1.3-4.6); Glomerular Filtration Rate 74.5 mL/min (90-130); Glucose 108 mg/dL (65-115); Osmolality Calculated 292 mOsm/kg (285-295); Potassium 3.6 mmol/L (3.5-5.1); Sodium 140 mmol/L (136-145); Total Bilirubin 0.2 mg/dL (0.15-1.2); Total Protein 7.4 g/dL (6.6-8.7)
[2023-11-17] MEDS: dexamethasone 10 mg/mL INJ IM (14:34)
[2023-11-17 14:58] VITALS: BP 119/62; PULSE 60; RESP 18; O2SAT 95
== END 2023-11-17 15:05 | disposition home or self-care (01) ==
PROVIDERS: Emergency Provider Family Medicine; PCP Family Medicine
DX: G57.22 Lesion of femoral nerve, left lower limb (principal); N18.9 Chronic kidney disease, unspecified; I50.9 Heart failure, unspecified; J44.9 Chronic obstructive pulmonary disease, unspecified; Z87.891 Personal history of nicotine dependence; Z79.82 Long term (current) use of aspirin
CPT/HCPCS: 36415; 80053; 81003; 85025; 96372; 99284; J1100

== ENCOUNTER 2023-12-03 12:11 | Emergency (ER) | payer MEDICARE, MEDICAID, SELFPAY ==
--- NOTE | 2023-12-03 12:17 | ECG_ITS ---
[facility] Test Date: 2023-12-03 Pat Name: Sukumar Bangura Department: Room: Gender: Male Sling Operator: : 1955 Requested By: Venkatesh Prakash Order Number: [id number] Garcia MD: Orville Marinelli M.D. Measurements Intervals [place] Rate: 114 P: 40 PA: 143 QRS: -1 QRSD: 110 T: 34 QT: 334 QTc: 460 Interpretive Statements SINUS TACHYCARDIA INCOMPLETE RIGHT BUNDLE BRANCH BLOCK [90+ ms QRS DURATION, TERMINAL R IN V1/V2, 40+ ms S IN I/aVL/V4/V5/V6] MODERATE ST DEPRESSION [0.05+ mV ST DEPRESSION] Compared to ECG 06/26/2023 17:47:24 ST (T wave) deviation now present Sinus rhythm no longer present T-wave abnormality no longer present Electronically Signed On 12-03-2023 14:21:15 HAT TRIMMER by Orville Marinelli M.D. [id number]
[2023-12-03 12:23] VITALS: BP 160/78; PULSE 108; RESP 16; TEMP 36.7; O2SAT 96; BMI 44.9
--- NOTE | 2023-12-03 12:39 | XR_ITS ---
WS: [id number] Exam: XR chest 1V portable [id number] Date/Time of Exam: 12/03/2023 12:39 PM Reason For Exam: chest pain Comparison 06/26/2023. The lungs are clear and fully expanded. Heart size is probably within normal limits. There is marked thoracic scoliosis with a single Oconnor hetal stabilizing the spine. No sign of hardware failure or change. No pleural effusion. No pneumothorax. IMPRESSION: 1. Chronic changes. No acute process is suspected.
[2023-12-03 12:48] VITALS: BP 131/65; PULSE 101; RESP 18; O2SAT 98
--- NOTE | 2023-12-03 13:00 | ED_ITS ---
HPI - Chest Pain 2 General: Chief Complaint: Chest Pain Stated Complaint: CP Time Seen by Provider: 12/03/23 12:29 Source: patient Mode of arrival: ambulatory History of Present Illness: 68-year-old male presents emergency room with complaint of chest pain with activity this morning. It is resolved now. He is walking around the house he began to get chest discomfort when he sat down and rested it resided. He has a history of COPD and congestive heart failure normally wears 2 L by nasal cannula reviewing his chart he has not had any recent stress testing. MD complaint: chest pain (Now resolved) Onset (ago): hour(s) Timing of current episode: episodic Onset: during exertion Pain location: substernal Pain radiation: back Quality: aching and heaviness Relieving factors: rest Exacerbating factors: exertion Associated symptoms: Reports dyspnea and nausea; Deny abdominal pain, diaphoresis, fever(s), leg edema, palpitations, sense of impending doom, syncope or vomiting Treatment prior to arrival: none Review of Systems 2 Const: Denies: fever(s), chills or diaphoresis Card: Denies: chest pain, palpitations or syncope Resp: Reports: dyspnea GI: Reports: nausea; Denies: abdominal pain or vomiting : Denies: dysuria, urinary frequency or urinary urgency Musc: Denies: neck pain or back pain Skin/Breast: Denies: rash PFSH ED 2 PFSH: Medical History COVID-19 Acute kidney injury superimposed on chronic kidney disease CELESTE (obstructive sleep apnea) Obesity Chronic hypercapnic respiratory failure Restrictive lung disease due to kyphoscoliosis Congestive heart failure Tobacco chew use Fixation hardware in spine Acquired arm deformity GERD (gastroesophageal reflux disease) Kyphoscoliosis Hyperglycemia Scoliosis COPD (chronic obstructive pulmonary disease) Surgical History History of [place] fundoplication History of appendectomy H/O arthroscopy of shoulder Hx of cholecystectomy Family History Father Cancer Social History Smoking and tobacco/nicotine status: former use of tobacco/nicotine Quit status (tobacco/nicotine): has quit using Year quit tobacco: 2010 Former quit date comment: 2ppd x 10 years Second hand smoke exposure: No Alcohol intake: never Substance/Drug Use: never Lives independently: Yes Household members: spouse Housing: House Marital status: service: No Current occupational status: employed 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 Pets and animals: Yes Do you think of yourself as: Straight/Heterosexual Current gender identity: Male Physical Exam 2 Const: COMMON NORMALS: no acute distress GENERAL APPEARANCE: cooperative and comfortable ORIENTATION/CONSCIOUSNESS: Yes awake, Yes oriented to person, Yes oriented to place and Yes oriented to time HENMT: COMMON NORMALS: normocephalic, atraumatic and hearing grossly normal bilaterally HEAD & SCALP: normocephalic and atraumatic Resp: COMMON NORMALS: normal respiratory effort, No retractions, No use of accessory muscles and clear to auscultation bilaterally AUSCULTATION: clear to auscultation bilaterally Cardio: COMMON NORMALS: regular rate, regular rhythm and No murmurs present (Cardio) RATE: regular rate RHYTHM: regular rhythm GI: COMMON NORMALS: Soft to palpation and No hepatosplenomegaly present A USCULTATION: Yes normoactive bowel sounds PALPATION: Yes Soft to palpation, No Tenderness to palpation present (GI), No Guarding due to palpation present (GI) and Yes No hepatosplenomegaly present Extremity: COMMON NORMALS: normal to inspection, capillary refill normal, no clubbing, cyanosis or edema, no calf tenderness and no pedal edema Neuro: SENSORIUM/ORIENTATION: Yes oriented to person, Yes oriented to place and Yes oriented to time Skin: COMMON NORMALS: no rashes or lesions noted GENERAL SKIN EXAM: no rashes or lesions noted Course 2 Vital Signs: Vital signs: Vital Signs Temperature 98.0 F 12/03/23 12:23 Pulse Rate 91 12/03/23 14:30 Respiratory Rate 15 12/03/23 14:30 Blood Pressure 101/55 12/03/23 14:30 Pulse Oximetry 96 12/03/23 14:30 Oxygen Delivery Me thod Nasal Cannula 12/03/23 14:30 Oxygen Flow Rate 2 12/03/23 14:30 MDM - Chest Pain Medical Decision Making Labs and imaging reviewed no acute EKG changes troponins do not have a clinically significant positive delta. No further episode of chest pain had resolved at the time he arrived here cardiac enzymes and EKG not show any acute changes blood pressure is improved. He is on a baby aspirin daily was started on Lasoride mononitrate 30 mg daily and set him up for outpatient Lexiscan sestamibi stress test return to the emergency room if she has any worsening or changing problems. Medical Records I reviewed the patient's medical records. Lab Data I reviewed the patient's lab results. 12/03/23 13:07 12/03/23 13:07 Laboratory Results WBC 12.40 10^3/uL (3.29-11.43) H 12/03/23 13:07 RBC 4.47 10^6/uL (3.85-5.65) 12/03/23 13:07 Hgb 13.10 g/dL (11.27-16.99) 12/03/23 13:07 Hct 43.4 % (37-53) 12/03/23 13:07 MCV 97.1 fl (82-101) 12/03/23 13:07 MCH 29.3 pg (27-33) 12/03/23 13:07 MCHC 30.2 g/dL (30-55) 12/03/23 13:07 RDW 12.7 % (12.1-15.1) 12/03/23 13:07 Plt Count 212 10^3/cmm (157-399) 12/03/23 13:07 MPV 9.4 fL (7.4-10.4) 12/03/23 13:07 Neut % (Auto) 79.2 % 12/03/23 13:07 Lymph % (Auto) 10.5 % 12/03/23 13:07 [place] % (Auto) 8.5 % 12/03/23 13:07 Eos % (Auto) 0.0 % 12/03/23 13:07 Baso % (Auto) 0.2 % 12/03/23 13:07 Neut # (Auto) 9.82 10^3/uL (1.8-7.7) H 12/03/23 13:07 Lymph # (Auto) 1.3 10^3/uL (0.8-4.8) 12/03/23 13:07 [place] # (Auto) 1.1 10^3/uL (0.2-0.9) H 12/03/23 13:07 Eos # (Auto) 0.0 10^3/uL (0.0-0.8) 12/03/23 13:07 Baso # (Auto) 0.0 10^3/uL (0.0-0.1) 12/03/23 13:07 Nucleated RBC % (auto) 0 % 12/03/23 13:07 Nucleated RBCs # 0.0 /100WBC 12/03/23 13:07 Sodium 141 mmol/L (136-145) 12/03/23 13:07 Potassium 3.7 mmol/L (3.5-5.1) 12/03/23 13:07 Chloride 102 mmol/L (98-107) 12/03/23 13:07 Carbon Dioxide 30 mmol/L (22-29) H 12/03/23 13:07 Anion Gap 12.7 (5-19) 12/03/23 13:07 BUN 21 mg/dL (8-23) 12/03/23 13:07 Creatinine 1.0 mg/dL (0.7-1.2) 12/03/23 13:07 GFR Calculation 74.5 mL/min (90-130) L 12/03/23 13:07 Glucose 217 mg/dL (65-115) H 12/03/23 13:07 Calculated Osmolality 302 mOsm/kg (285-295) H 12/03/23 13:07 Calcium 9.2 mg/dL (8.5-10.5) 12/03/23 13:07 Total Bilirubin 0.2 mg/dL (0.15-1.2) 12/03/23 13:07 AST 10 U/L (0-40) 12/03/23 13:07 ALT 16 U/L (0-41) 12/03/23 13:07 Alkaline Phosphatase 88 U/L (40-130) 12/03/23 13:07 Troponin T Baseline 13 ng/L (0-15) 12/03/23 13:07 Troponin T 120 Minute 15.82 ng/L (0-15) H 12/03/23 15:02 Delta Troponin T 2.82 ABS# (0-10) 12/03/23 15:02 Total Protein 6.9 g/dL (6.6-8.7) 12/03/23 13:07 Albumin 3.7 g/dL (3.5-5.2) 12/03/23 13:07 Globulin 3.2 g/dL (1.3-4.6) 12/03/23 13:07 All radiology interpretation(s) finalized by discharge Discharge Plan Discharge Patient Disposition: Home Clinical Impression: Atypical chest pain, Hypertension Condition: Stable Prescriptions: New isosorbide mononitrate 30 mg tablet extended release 24 hr 30 mg PO DAILY Qty: 30 0RF No Action ranolazine 500 mg tablet extended release 12 hr 500 mg PO BID aspirin 81 mg tablet,delayed release (DR/EC) 81 mg PO DAILY Qty: 30 0RF hydrocodone-acetaminophen 5-325 mg tablet 1 tab PO Q8H PRN (Reason: Pain) bumetanide 2 mg Tablet See Rx Instructions .ROUTE .COMPLEX Rx Instructions: 2 MG ORALLY ON FRIDAY, FRIDAY, FRIDAY, AND FRIDAY trazodone 150 mg tablet 150 mg PO BEDTIME gabapentin 300 mg capsule 300 mg PO BID methylprednisolone 4 mg tablets,dose pack See Rx Instructions .ROUTE .COMPLEX Rx Instructions: Take per package instructions. amoxicillin-pot clavulanate 875-125 mg tablet 1 tab PO Q12H albuterol sulfate 2.5 mg /3 mL (0.083 %) Solution For Nebulization 2.5 mg INHALATION Q6H PRN (Reason: Shortness Of Breath) sennosides-docusate sodium [Stimulant Laxative Plus] 8.6-50 mg tablet 1 tab PO QAM fluticasone propionate 50 mcg/actuation spray,suspension 2 spray INTRANASAL DAILY PRN (Reason: allergies) potassium chloride 20 mEq tablet extended release 40 meq PO BID ondansetron HCl 4 mg tablet 4 mg PO Q8H PRN (Reason: Nausea And Vomiting) acetazolamide 250 mg tablet 250 mg PO BID prednisone 20 mg tablet 20 mg PO TID Qty: 15 0RF Rx Instructions: 1 p.o. 3 times daily x3 days, 1 p.o. twice daily x2 days, 1 p.o. daily x2 days Discharge Orders: Discharge ED (Routine); Ordered 12/03/23 Ordered By: Venkatesh Burger Referrals: Saji York [Primary Care Provider] - Discharge Diet: Usual diet Patient Instructions: Opioid Safety, Pain Management Activity Restrictions/Additional Instructions: Thank you for choosing [facility] for your healthcare needs today. Please realize this is an emergency room and that we are providing you with a medical screening exam and this may not be complete and all inclusive of all the testing and or work up that you may need to determine your ailment or severity of your illness. It is very important that you follow up as instructed or that you return to the Emergency Department should you have concerns or if your condition changes or worsens in any way. You are seen today for chest discomfort. Cardiac enzymes are unremarkable EKG does not show any acute changes recommend you start isosorbide mononitrate 30 mg daily we will set you up for an outpatient stress test. Coding Level of Care Code ED Arch Cushion Skiving Machine Operator for [facility] Ward
[2023-12-03 13:15] LABS: Basophils % 0.2 %; Hematocrit 43.4 % (37-53); Lymphocytes # 1.3 10^3/uL (0.8-4.8); Lymphocytes % 10.5 %; Mean Corpuscular HGB Conc 30.2 g/dL (30-55); Mean Corpuscular Hemoglobin 29.3 pg (27-33); Mean Corpuscular Volume 97.1 fl (82-101); Mean Platelet Volume 9.4 fL (7.4-10.4); Monocytes # 1.1 10^3/uL (0.2-0.9); Monocytes % 8.5 %; Neutrophils # 9.82 10^3/uL (1.8-7.7); Neutrophils % 79.2 %; Nucleated Red Blood Cells % 0 %; Platelet Count 212 10^3/cmm (157-399); Red Blood Count 4.47 10^6/uL (3.85-5.65); Red Cell Distribution Width 12.7 % (12.1-15.1)
--- NOTE | 2023-12-03 13:19 | PC.PHAR ---
SPOUSE STATES PT IS UNABLE TO TAKE FARXIGA 5 MG. 12/03/23
[2023-12-03] MEDS: isosorbide mononitrate ER 30 mg Tablet PO (13:33)
[2023-12-03 13:38] LABS: Troponin(5th) Baseline 13 ng/L (0-15)
[2023-12-03 13:41] LABS: Alanine Aminotransferase 16 U/L (0-41); Albumin Level 3.7 g/dL (3.5-5.2); Alkaline Phosphatase 88 U/L (40-130); Anion Gap 12.7 (5-19); Aspartate Amino Transferase 10 U/L (0-40); Blood Urea Nitrogen 21 mg/dL (8-23); Calcium 9.2 mg/dL (8.5-10.5); Carbon Dioxide 30 mmol/L (22-29); Chloride 102 mmol/L (98-107); Globulin 3.2 g/dL (1.3-4.6); Glomerular Filtration Rate 74.5 mL/min (90-130); Glucose 217 mg/dL (65-115); Osmolality Calculated 302 mOsm/kg (285-295); Potassium 3.7 mmol/L (3.5-5.1); Sodium 141 mmol/L (136-145); Total Bilirubin 0.2 mg/dL (0.15-1.2); Total Protein 6.9 g/dL (6.6-8.7)
[2023-12-03 14:30] VITALS: BP 101/55; PULSE 91; RESP 15; O2SAT 96
--- NOTE | 2023-12-03 14:39 | ECG_ITS ---
[facility] Test Date: 2023-12-03 Pat Name: Sukumar Bangura Department: Room: Gender: Male Proof Operator: : 1955 Requested By: Venkatesh Prakash Order Number: [id number] Garcia MD: Darryl Guerra M.D. Measurements Intervals [place] Rate: 84 P: 87 MA: 143 QRS: 13 QRSD: 105 T: 13 QT: 402 QTc: 476 Interpretive Statements SINUS RHYTHM WITH OCCASIONAL SUPRAVENTRICULAR PREMATURE COMPLEXES INCOMPLETE RIGHT BUNDLE BRANCH BLOCK [90+ ms QRS DURATION, TERMINAL R IN V1/V2, 40+ ms S IN I/aVL/V4/V5/V6] Compared to ECG 12/03/2023 12:17:39 Sinus tachycardia no longer present ST (T wave) deviation no longer present Electronically Signed On 12-04-2023 11:08:28 CREDIT ADMINISTRATION MANAGER by Darryl Guerra M.D. [id number]
[2023-12-03 15:27] LABS: Troponin 5 2HR 15.82 ng/L (0-15); Troponin 5 2HR Delta 2.82 ABS# (0-10)
--- NOTE | 2023-12-10 08:39 | DCPLANNER ---
outpatient request sent to centralized scheduling 12/10/23 Fabian
== END 2023-12-03 16:09 | disposition home or self-care (01) ==
PROVIDERS: Emergency Provider Family Medicine; PCP Family Medicine
DX: R07.89 Other chest pain (principal); I10 Essential (primary) hypertension; Z87.891 Personal history of nicotine dependence
CPT/HCPCS: 36415; 71045; 80053; 84484; 85025; 93005; 99285

== ENCOUNTER → 2023-12-04 10:38 | Outpatient (BNVA) | payer MEDICARE, MEDICAID, SELFPAY | PROVIDERS: PCP Family Medicine; Visit Provider Internal Medicine Pulmonary Disease | DX: J44.9 Chronic obstructive pulmonary disease, unspecified (principal); J98.4 Other disorders of lung; M41.9 Scoliosis, unspecified; I50.32 Chronic diastolic (congestive) heart failure; R42 Dizziness and giddiness; J96.12 Chronic respiratory failure with hypercapnia; F17.220 Nicotine dependence, chewing tobacco, uncomplicated; Z99.81 Dependence on supplemental oxygen; Z99.3 Dependence on wheelchair | CPT/HCPCS: 99214 ==

== ENCOUNTER → 2023-12-22 08:16 | Outpatient (BNVA) | payer MEDICARE, MEDICAID, SELFPAY | PROVIDERS: PCP Family Medicine; Visit Provider Internal Medicine Pulmonary Disease | DX: I50.32 Chronic diastolic (congestive) heart failure (principal); Z72.0 Tobacco use; R42 Dizziness and giddiness; J96.12 Chronic respiratory failure with hypercapnia; Z99.81 Dependence on supplemental oxygen; G47.33 Obstructive sleep apnea (adult) (pediatric) | CPT/HCPCS: 99214 ==

== ENCOUNTER 2024-03-19 10:29 | Inpatient (IN) | payer MEDICARE, MEDICAID, SELFPAY ==
[2024-03-19] VITALS (22 sets, daily range): BP systolic 90–119; BP diastolic 43–69; PULSE 59–94; RESP 12–34; TEMP 36.2–36.7; O2SAT 92–100; BMI 44.1
--- NOTE | 2024-03-19 10:54 | XR_ITS ---
WS: [id number] XR chest 1V 20385 REASON FOR EXAM: weakness FINDINGS: Complex chest which appears essentially unchanged compared to the previous examination of 12/03/2023. Severe kyphoscoliosis with single Oconnor hetal. Significant tortuosity of the thoracic aorta. Cardi omegaly. Posterior mediastinal fat projects over the medial aspect of the right lung. Old pleural pericardial reaction on the left. No acute pulmonary parenchymal or pleural abnormality is identified. XR/XR chest 1V 23002 IMPRESSION: Stable abnormal chest as above. No acute abnormality.
--- NOTE | 2024-03-19 11:24 | ECG_ITS ---
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 Measurements Intervals [place] Rate: 80 P: 83 DC: 151 QRS: 2 QRSD: 104 T: 33 QT: 392 QTc: 454 Interpretive Statements SINUS RHYTHM INCOMPLETE RIGHT BUNDLE BRANCH BLOCK [90+ ms QRS DURATION, TERMINAL R IN V1/V2, 40+ ms S IN I/aVL/V4/V5/V6] Compared to ECG 12/03/2023 15:31:35 No significant changes Electronically Signed On 03-19-2024 14:24:45 CDT by Darryl Guerra M.D. [id number]
[2024-03-19 11:33] LABS: ABG PH Result 7.26 (7.35-7.45); Alveolar-Arterial Oxygen Gradi 5.4 mmHg (5-10); Base Excess ABG 3.7 mmol/L (-2.0-2.0); Blood Gas Allen Test Pos; Blood Gas Sample Site Radial, right; Blood Gas Sample Type Arterial; HCO3 ABG 32.5 mmol/L (22-26); HGB O2 Sat 92.1 % (95-100); Ionized Calcium Level - ABG 1.2 mmol/L (1.1-1.4); Methemoglobin 0.8 % (0.4-1.5); Oxygen Device NC; Oxygen Saturation ABG 94.7; PO2 ABG 70.9 mmHg (80.0-100.0); PO2 FiO2 Ratio Arterial Blood 0; Potassium Level - ABG 3.7 mmol/L (3.5-5.0); Total Hemoglobin 11.8 g/dL (14-18)
[2024-03-19 11:36] LABS: ABG PCO2 72.2 mmHg (35-45)
[2024-03-19 11:46] LABS: Basophils % 0.6 %; Eosinophils # 0.2 10^3/uL (0.0-0.8); Eosinophils % 2.3 %; Hematocrit 39.1 % (37-53); Lymphocytes # 1.6 10^3/uL (0.8-4.8); Lymphocytes % 22.2 %; Mean Corpuscular HGB Conc 29.9 g/dL (30-55); Mean Corpuscular Hemoglobin 29.8 pg (27-33); Mean Corpuscular Volume 99.7 fl (82-101); Mean Platelet Volume 9.3 fL (7.4-10.4); Monocytes # 0.7 10^3/uL (0.2-0.9); Monocytes % 10.3 %; Neutrophils # 4.47 10^3/uL (1.8-7.7); Neutrophils % 63.6 %; Nucleated Red Blood Cells % 0 %; Platelet Count 199 10^3/cmm (157-399); Red Blood Count 3.92 10^6/uL (3.85-5.65); Red Cell Distribution Width 12.9 % (12.1-15.1); White Blood Count 7.02 10^3/uL (3.29-11.43)
[2024-03-19] MEDS: ipratropium-albuterol 3 mL Neb INHALATION ×2 (11:56→19:42)
[2024-03-19] MEDS: albuterol 2.5 mg/3 mL Neb INHALATION (11:56)
[2024-03-19 12:01] LABS: Alanine Aminotransferase 16 U/L (0-41); Albumin Level 3.5 g/dL (3.5-5.2); Alkaline Phosphatase 77 U/L (40-130); Anion Gap 11.9 (5-19); Aspartate Amino Transferase 12 U/L (0-40); Blood Urea Nitrogen 18 mg/dL (8-23); C Reactive Protein 11.7 mg/L (0.0-4.9); Calcium 8.5 mg/dL (8.5-10.5); Carbon Dioxide 32 mmol/L (22-29); Chloride 98 mmol/L (98-107); Creatinine Clr Calc Pharmacy 65.4463; Globulin 3.3 g/dL (1.3-4.6); Glomerular Filtration Rate 66.8 mL/min (90-130); Glucose 176 mg/dL (65-115); Lactic Sepsis W/Reflex 1.5 mmol/L (0.5-2.2); Osmolality Calculated 292 mOsm/kg (285-295); Potassium 3.9 mmol/L (3.5-5.1); Sodium 138 mmol/L (136-145); Total Bilirubin 0.2 mg/dL (0.15-1.2); Total Protein 6.8 g/dL (6.6-8.7)
--- NOTE | 2024-03-19 12:11 | W.ED.WEAKNES ---
HPI - Weakness General: Chief complaint: Weakness Stated complaint: weakness, dizzy Time Seen by Provider: 03/19/24 11:29 History of Present Illness: 68-year-old man with a history of severe scoliosis, COPD and chronic hypoxemic respiratory failure on 2 L nasal cannula, obstructive sleep apnea, obesity, and congestive heart failure who presents to the emergency room with altered mental status. Family was present said that after she gave his medications to him this morning he had some kind of slurred speech. Nothing focal. But seem more confused. He also has been very sleepy. No fevers. He has had a cough. He says his lower extremity swelling is a bit worse than usual. He tells me this is from when he ate a bunch of salty food. Review of Systems Narrative: Constitutional symptoms: Negative except as documented in HPI. Skin symptoms: Negative except as documented in HPI. Eye symptoms: Negative except as documented in HPI. ENMT symptoms: Negative except as documented in HPI. Respiratory symptoms: Negative except as documented in HPI. Cardiovascular symptoms: Negative except as documented in HPI. Gastrointestinal symptoms: Negative except as documented in HPI. Genitourinary symptoms: Negative except as documented in HPI. Musculoskeletal symptoms: Negative except as documented in HPI. Neurologic symptoms: Negative except as documented in HPI. Psychiatric symptoms: Negative except as documented in HPI. Endocrine symptoms: Negative except as documented in HPI. [facility] ED PFSH: Medical History COVID-19 Acute kidney injury superimposed on chronic kidney disease CELESTE (obstructive sleep apnea) Obesity Chronic hypercapnic respiratory failure Restrictive lung disease due to kyphoscoliosis Congestive heart failure Tobacco chew use Fixation hardware in spine Acquired arm deformity GERD (gastroesophageal reflux disease) Kyphoscoliosis Hyperglycemia Scoliosis COPD (chronic obstructive pulmonary disease) Surgical History History of [place] fundoplication History of appendectomy H/O arthroscopy of shoulder Hx of cholecystectomy Family History Father Cancer Social History Smoking and tobacco/nicotine status: former use of tobacco/nicotine Quit status (tobacco/nicotine): has quit using Year quit tobacco: 2010 Former quit date comment: 2ppd x 10 years Second hand smoke exposure: No Alcohol intake: never Substance/Drug Use: never Lives independently: Yes Household members: spouse Housing: House Marital status: service: No Current occupational status: employed 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 Skin: Warm, dry. Head: Normocephalic, atraumatic. Neck: Supple, trachea midline. Eye: Extraocular movements are intact. Ears, nose, mouth and throat: Oral mucosa moist. Cardiovascular: Regular rate and rhythm, Normal peripheral perfusion. 2-3+ pitting edema Respiratory: some expiratory wheeze, mild increased wob, breath sounds are equal, Symmetrical chest wall expansion. Gastrointestinal: Soft, Nontender, Non distended, Normal bowel sounds. Musculoskeletal: Normal ROM, no deformity. Neurological: Alert and oriented to person, place, time, and situation, No focal neurological deficit observed. Psychiatric: Cooperative, appropriate mood & affect. Course Vital Signs: Vital signs: Vital Signs Temperature 98.1 F 03/19/24 10:31 Pulse Rate 70 03/19/24 11:57 Respiratory Rate 22 H 03/19/24 11:57 Blood Pressure 119/69 03/19/24 10:31 Pulse Oximetry 98 03/19/24 11:57 Oxygen Delivery Me thod BiPAP 03/19/24 11:57 Oxygen Flow Rate 2 03/19/24 10:31 Fraction of Inspir ed Oxygen 25 03/19/24 11:57 MDM - Weakness Medical Decision Making Medical decision making: Differential diagnosis including but not limited to and based on the above HPI, review of systems and physical exam: In this patient with altered mental status: Stroke. Hypoglycemia. Metabolic encephalopathy. Infections such as pneumonia, urinary tract infection, Covid-19, Influenza. Electrolyte abnormalities such as hypernatremia. Renal failure / uremia. Hepatic encephalopathy. Hypoxemia. Hypercapnic respiratory failure. Psychosis. Drug or alcohol intoxication. Medication overdose. Orders placed to evaluate differential diagnosis based on the above differential, HPI and physical exam Lab Review: Laboratory results were reviewed and interpreted by myself the emergency room physician. White count is 7. Hemoglobin is 11.7. BUN and creatinine are 18 and 1.1. Lactate is negative. CRP is somewhat elevated. Liver enzymes are nonelevated. Troponin is negative. Chest x-ray: Complex chest which appears essentially unchanged compared to the previous examination of 12/03/2023. Severe kyphoscoliosis with single Oconnor hetal. Significant tortuosity of the thoracic aorta. Cardiomegaly. Posterior mediastinal fat projects over the medial aspect of the right lung. Old pleural pericardial reaction on the left. No acute pulmonary parenchymal or pleural abnormality is identified. AB.26/72/70. 92% on 2 L nasal cannula EKG: Time 1124 rate 80 normal sinus rhythm, No ST-T changes, no ectopy, right bundle branch block, This was reviewed and interpreted by myself the ER physician at 11:30 AM. I reviewed the patient's medical record. Reexamination: Patient is stable on a BiPAP. Still with some mild wheeze. Mentation remained stable. He is had no focal motor deficits here and seems fairly alert. Assessment and plan: Acute on chronic hypercapnic respiratory failure COPD with acute exacerbation Chronic hypoxemic respiratory failure Congestive heart failure Severe scoliosis -BiPAP, updrafts and Solu-Medrol in the emergency room. -Patient does have some increased swelling, but no signs of pulmonary edema and his blood pressure is a little bit soft so I am not going to diurese -I discussed the patient with the hospitalist on-call who is admitting the patient. - Discussed findings and plan with patient. Answered any questions. - All laboratory values were reviewed and interpreted personally by myself, the ER physician - All imaging was reviewed and interpreted personally by myself, the ER physician. - Evaluation and treatment of this problem were appropriate in the emergency setting -I spent a total of >35 minutes of critical care time managing the patient, independent of any other practitioner. -The time involved in the performance of separately reportable procedures was not counted towards critical care time. Lab Data 03/19/24 11:30 03/19/24 11:30 Radiology Impressions Chest X-Ray 03/19/24 10:54 IMPRESSION: Stable abnormal chest as above. No acute abnormality. Laboratory Results WBC 7.02 10^3/uL (3.29-11.43) 03/19/24 11:30 RBC 3.92 10^6/uL (3.85-5.65) 03/19/24 11:30 Hgb 11.70 g/dL (11.27-16.99) 03/19/24 11:30 Hct 39.1 % (37-53) 03/19/24 11:30 MCV 99.7 fl (82-101) 03/19/24 11:30 MCH 29.8 pg (27-33) 03/19/24 11:30 MCHC 29.9 g/dL (30-55) L 03/19/24 11:30 RDW 12.9 % (12.1-15.1) 03/19/24 11:30 Plt Count 199 10^3/cmm (157-399) 03/19/24 11:30 MPV 9.3 fL (7.4-10.4) 03/19/24 11:30 Neut % (Auto) 63.6 % 03/19/24 11:30 Lymph % (Auto) 22.2 % 03/19/24 11:30 Sharp % (Auto) 10.3 % 03/19/24 11:30 Eos % (Auto) 2.3 % 03/19/24 11:30 Baso % (Auto) 0.6 % 03/19/24 11:30 Neut # (Auto) 4.47 10^3/uL (1.8-7.7) 03/19/24 11:30 Lymph # (Auto) 1.6 10^3/uL (0.8-4.8) 03/19/24 11:30 Sharp # (Auto) 0.7 10^3/uL (0.2-0.9) 03/19/24 11:30 Eos # (Auto) 0.2 10^3/uL (0.0-0.8) 03/19/24 11:30 Baso # (Auto) 0.0 10^3/uL (0.0-0.1) 03/19/24 11:30 Nucleated RBC % (auto) 0 % 03/19/24 11:30 Nucleated RBCs # 0.0 /100WBC 03/19/24 11:30 Specimen Type Arterial 03/19/24 11:20 Sample Site Radial, right 03/19/24 11:20 ABG pH 7.26 (7.35-7.45) L 03/19/24 11:20 ABG pCO2 72.2 mmHg (35-45) H* 03/19/24 11:20 ABG pO2 70.9 mmHg (80.0-100.0) L 03/19/24 11:20 ABG PO2/FiO2 Ratio 0 03/19/24 11:20 ABG HCO3 32.5 mmol/L (22-26) H 03/19/24 11:20 ABG O2 Saturation 94.7 03/19/24 11:20 ABG Base Excess 3.7 mmol/L (-2.0-2.0) H 03/19/24 11:20 Humberto Test Pos 03/19/24 11:20 A-a O2 Gradient 5.4 mmHg (5-10) 03/19/24 11:20 Hematocrit 36.0 % (42-52) L 03/19/24 11:20 Hgb O2 Saturation 92.1 % (95-100) L 03/19/24 11:20 Carboxyhemoglobin 2.0 %THgb (0.4-20.1) 03/19/24 11:20 Methemoglobin 0.8 % (0.4-1.5) 03/19/24 11:20 Total Hemoglobin 11.8 g/dL (14-18) L 03/19/24 11:20 Sodium 140.0 mmol/L (131-143) 03/19/24 11:20 Potassium 3.7 mmol/L (3.5-5.0) 03/19/24 11:20 Glucose 172.0 mg/dL (70-115) H 03/19/24 11:20 Ionized Calcium 1.2 mmol/L (1.1-1.4) 03/19/24 11:20 O2 Delivery Device Nc 03/19/24 11:20 O2 Liters/Min 2.0 % 03/19/24 11:20 FiO2 28.0 % 03/19/24 11:20 Heel Boom Operator ID [email or web address] 03/19/24 11:20 Sodium 138 mmol/L (136-145) 03/19/24 11:30 Potassium 3.9 mmol/L (3.5-5.1) 03/19/24 11:30 Chloride 98 mmol/L (98-107) 03/19/24 11:30 Carbon Dioxide 32 mmol/L (22-29) H 03/19/24 11:30 Anion Gap 11.9 (5-19) 03/19/24 11:30 BUN 18 mg/dL (8-23) 03/19/24 11:30 Creatinine 1.1 mg/dL (0.7-1.2) 03/19/24 11:30 GFR Calculation 66.8 mL/min (90-130) L 03/19/24 11:30 Glucose 176 mg/dL (65-115) H 03/19/24 11:30 Calculated Osmolality 292 mOsm/kg (285-295) 03/19/24 11:30 Lactic Acid 1.5 mmol/L (0.5-2.2) 03/19/24 11:30 Calcium 8.5 mg/dL (8.5-10.5) 03/19/24 11:30 Total Bilirubin 0.2 mg/dL (0.15-1.2) 03/19/24 11:30 AST 12 U/L (0-40) 03/19/24 11:30 ALT 16 U/L (0-41) 03/19/24 11:30 Alkaline Phosphatase 77 U/L (40-130) 03/19/24 11:30 Troponin T Baseline 11 ng/L (0-15) 03/19/24 11:30 C-Reactive Protein 11.7 mg/L (0.0-4.9) H 03/19/24 11:30 Total Protein 6.8 g/dL (6.6-8.7) 03/19/24 11:30 Albumin 3.5 g/dL (3.5-5.2) 03/19/24 11:30 Globulin 3.3 g/dL (1.3-4.6) 03/19/24 11:30 All radiology interpretation(s) finalized by discharge Discharge Plan Discharge Patient Disposition: Admitted As Inpatient Clinical Impression: Hypercapnic respiratory failure, Chronic hypoxemic respiratory failure, COPD with acute exacerbation Condition: Stable 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
[2024-03-19 12:25] LABS: Troponin(5th) Baseline 11 ng/L (0-15)
[2024-03-19] MEDS: methylPREDNISolone sod succ 125 mg/2 mL INJ IVP (12:34)
[2024-03-19 13:26] LABS: ABG PH Result 7.31 (7.35-7.45); Alveolar-Arterial Oxygen Gradi 1.3 mmHg (5-10); Arterial Blood Gas Hematocrit 34.6 % (42-52); Base Excess ABG 5.4 mmol/L (-2.0-2.0); Blood Gas Allen Test Pos; Blood Gas Operator Identificat GD; Blood Gas Sample Site Radial, right; Blood Gas Sample Type Arterial; HCO3 ABG 33.4 mmol/L (22-26); HGB O2 Sat 95.1 % (95-100); Ionized Calcium Level - ABG 1.2 mmol/L (1.1-1.4); Oxygen Device BIPAP; PO2 ABG 87.5 mmHg (80.0-100.0); PO2 FiO2 Ratio Arterial Blood 0; Total Hemoglobin 11.3 g/dL (14-18)
[2024-03-19 13:27] LABS: ABG PCO2 66.1 mmHg (35-45)
[2024-03-19 14:17] LABS: Bilirubin Urine Neg (Negative); Blood Urine Neg (Negative); Glucose Urine UA Trace (Normal); Ketones Urine Negative (Negative); Leukocyte Esterase Urine Negative (Negative); Nitrate Urine Negative (Negative); Protein Urine Neg (Negative); Urine Appearance Clear (CLEAR); Urine Color Yellow (Yellow); Urobilinogen Urine Norm (Negative); pH Urine 6 (5-7)
[2024-03-19 14:18] LABS: Add Urine Culture? No
[2024-03-19 14:34] LABS: D Dimer 0.99 ug/mLFEU (0-0.59)
[2024-03-19 14:35] LABS: Bacteria Urine 1+ /hpf
[2024-03-19 14:48] LABS: Procalcitonin 0.11 ng/mL (0-0.5)
[2024-03-19 15:03] LABS: Adenovirus Not Detected (NOT DETECT); Chlamydia Pneumoniae Not Detected (NOT DETECT); Coronavirus 229E,HKU1,NL63,OC4 Not Detected (NOT DETECT); Human Metapneumovirus Not Detected (NOT DETECT); Human Rhinovirus/Enterovirus Not Detected (NOT DETECT); Influenza A Not Detected (NOT DETECT); Influenza A H1 Not Detected (NOT DETECT); Influenza A H1-2009 Not Detected (NOT DETECT); Influenza A H3 Not Detected (NOT DETECT); Influenza B Not Detected (NOT DETECT); Mycoplasma Pneumoniae Not Detected (NOT DETECT); Parainfluenza Virus Type 1 Not Detected (NOT DETECT); Parainfluenza Virus Type 2 Not Detected (NOT DETECT); Parainfluenza Virus Type 3 Not Detected (NOT DETECT); Parainfluenza Virus Type 4 Not Detected (NOT DETECT); Respiratory Syncytial Virus A Not Detected (NOT DETECT); Respiratory Syncytial Virus B Not Detected (NOT DETECT); SARS-COV-2 Not Detected (NOT DETECT)
[2024-03-19] MEDS: methylPREDNISolone sod succ 40 mg/mL INJ IVP ×2 (15:58→20:25)
[2024-03-19] MEDS: pantoprazole 40 mg SDV IVP (15:58)
[2024-03-19] MEDS: heparin 5,000 unit/mL INJ 1 mL 5000 UNIT SUBCUT (15:59)
--- NOTE | 2024-03-19 17:05 | P.HP_ITS ---
Providers/Chief Complaint 2 Admitting Physician: Christiano Tucker MD Primary Care Provider: Saji York Chief Complaint: weakness, dizzy History of Present Illness Sukumar Bangura is a 68 year old male congestive heart failure, obesity, scoliosis, end-stage COPD on 2 L of baseline oxygen supplementation during the day and 6 L at night along with AVAPS was brought into the ER today by his spouse when he was found to be incoherent and confused at home since around 3 AM. In the ER he was found to have hypercapnic respiratory failure with pCO2 of more than 80 hence was placed on BiPAP. As per the patient he there has been no changes in the medications. He received a new BiPAP recently and believes it is not working well. Has been complaining of increased cough and runny nose recently. Has not been able to control his salt intake over last 1 week. Thinks he has increased swelling of his lower limbs and has gained weight recently. He was placed on BiPAP in the ER and a repeat ABG showed improvement in pCO2 down to 66. When seen in the ICU he is on nasal cannula, awake and alert and able to complete conversation and follow direction. Review of Systems 2 General: Reports: 10 or more systems reviewed and unremarkable except in HPI and below Const: Denies: fever(s), chills, body aches, change in appetite, change in weight, malaise, night sweats, diaphoresis, change in sleep pattern, daytime sleepiness or snoring Eyes: Denies: change in vision, blurry vision, photophobia, eye discomfort or eye discharge ENMT: Denies: throat pain, enlarged tonsils, hoarseness, mouth pain, oral sores, dry mouth, tinnitus, nasal congestion or post nasal drip Card: Denies: chest pain, palpitations, irregular heart rhythm, edema, swelling of feet/ankles, lightheadedness, syncope, pre-syncope, dyspnea on exertion, orthopnea, leg pain with exertion or acrocyanosis Resp: Denies: dyspnea, productive cough, non-productive cough, wheezing, stridor, pain on inspiration, change in phlegm color, hemoptysis or chest congestion GI: Denies: abdominal pain, nausea, vomiting, hematemesis, coffee ground emesis, dysphagia, heartburn, diarrhea, constipation, bloating, GI cramping, change in bowel habits, pain on defecation, hematochezia or melena : Denies: flank pain, difficulty urinating, dysuria, urinary frequency, urinary urgency, urinary hesitancy, urinary dribbling, difficulty starting urination, change in urine stream, nocturia or hematuria Musc: Denies: neck pain, back pain, extremity pain, joint pain, joint swelling, joint redness, joint stiffness or limited range of motion Neuro: Denies: headache(s), numbness in extremities, weakness in extremities, sensory changes, lack of coordination, difficulty walking, frequent falls, dizziness, vertigo, confusion, Slurred speech present, difficulty communicating thoughts or seizure-like activity Psych: Denies: anxiety, depression, mood swings, panic attacks, hopelessness or irritability Endo: Denies: polyuria, polydipsia, tired all the time, cold intolerance, excessive sweating, flushing or heat intolerance Chaitanya/Lymph: Denies: easy bruising or easy bleeding All/Imm: Denies: tongue swelling, facial swelling or acute wheezing Medications/Allergies Home Medications Medication Instructions Recorded Confirmed Last Taken Type aspirin 81 mg tablet,delayed 81 mg PO DAILY #30 tabs 06/02/21 03/19/24 03/19/24 Rx release ranolazine 500 mg tablet,extended 500 mg PO BID 02/12/22 03/19/24 03/19/24 History release,12 hr potassium chloride 20 mEq 40 meq PO BID 07/10/22 03/19/24 03/19/24 History tablet,extended release bumetanide 2 mg tablet See Rx Instructions .Route .COMPLEX 06/04/23 03/19/24 03/19/24 History hydrocodone 5 mg-acetaminophen 325 1 tab PO Q8H PRN Pain 06/04/23 03/19/24 12/02/23 History mg tablet trazodone 150 mg tablet 150 mg PO BEDTIME 06/26/23 03/19/24 03/18/24 History acetazolamide 250 mg tablet See Rx Instructions .Route .COMPLEX 11/17/23 03/19/24 03/18/24 History gabapentin 300 mg capsule 300 mg PO BID 12/03/23 03/19/24 03/19/24 History sennosides 8.6 mg-docusate sodium 1 tab-cap PO DAILY PRN Constipation 03/19/24 03/19/24 Unknown History 50 mg tablet spironolactone 25 mg tablet 25 mg PO DAILY 03/19/24 03/19/24 03/19/24 History Allergies Allergy/AdvReac Type Severity Reaction Status Date / Time codeine Allergy ALGY-Rash Verified 12/04/23 10:56 PFSH Acute 2 PFSH: Medical History COVID-19 Acute kidney injury superimposed on chronic kidney disease CELESTE (obstructive sleep apnea) Obesity Chronic hypercapnic respiratory failure Restrictive lung disease due to kyphoscoliosis Congestive heart failure Tobacco chew use Fixation hardware in spine Acquired arm deformity GERD (gastroesophageal reflux disease) Kyphoscoliosis Hyperglycemia Scoliosis COPD (chronic obstructive pulmonary disease) Surgical History History of [place] fundoplication History of appendectomy H/O arthroscopy of shoulder Hx of cholecystectomy Family History Father Cancer Social History Smoking and tobacco/nicotine status: former use of tobacco/nicotine Quit status (tobacco/nicotine): has quit using Year quit tobacco: 2010 Former quit date comment: 2ppd x 10 years Second hand smoke exposure: No Alcohol intake: never Substance/Drug Use: never Lives independently: Yes Household members: spouse Housing: House Marital status: service: No Current occupational status: employed 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 Pets and animals: Yes Do you think of yourself as: Straight/Heterosexual Current gender identity: Male Vitals/I&O/Wt Last Vital Signs Temp 97.2 F L 03/19/24 14:45 Pulse 75 03/19/24 16:00 Resp 34 H 03/19/24 16:00 BP 105/65 03/19/24 16:00 Pulse Ox 100 03/19/24 16:00 O2 Del Method Nasal Cannula 03/19/24 16:00 O2 Flow Rate 4 03/19/24 16:00 FiO2 25 03/19/24 11:57 Weight last 48 hrs Weight 102.512 kg Physical Exam 2 Narrative: General: No acute distress, AO x3, sitting up in chair on nasal cannula HEENT: PERRLA, pupils bilaterally equal and reactive Chest:B/l bronchial breath sounds all over lung bryant occasional rhonchi and coarse crackles, decreased air entry all over lung bryant CVS: S1-S2 regular, no murmurs, no tachycardia, no gallops, no rubs Abdomen: Soft, nontender, no organomegaly, bowel sounds present Neuro: No focal deficits, no facial deformity, AO x3, power 5/5 in all limbs Extremity: Bilateral 1+ pitting edema up to mid thigh Data 03/19/24 11:30 03/19/24 11:30 Micro: Microbiology 03/19/24 11:35 Blood Culture - Preliminary Blood SPECIMEN COLLECTED 03/19/24 11:30 Blood Culture - Preliminary Blood SPECIMEN COLLECTED A&P Assessment and plan (1) Acute and chronic respiratory failure with hypercapnia: Most likely in setting of COPD exacerbation and congestive heart failure. Patient has end-stage COPD. At baseline on 2 L at rest on 6 L at night or exertion. BiPAP as needed and at night.Will try to test patient's home BiPAP to see if it is working appropriately. Repeat ABG in AM. Check D-dimer. Check respiratory viral panel, sputum culture. No leukocytosis, no fever. For now there are no concerns for pneumonia so we will hold off on IV antibiotics. (2) Acute exacerbation of chronic obstructive airways disease: Solu-Medrol 40 mg every 6 hourly. Will wean down slowly. DuoNeb every 6 hour, Pulmicort twice daily. Oxygen supplementation keeping saturation over 88%. (3) Respiratory acidosis: Resolving. (4) Congestive heart failure: Last echocardiogram shows EF 59% with mild LVH, thickened aortic valve. History of diastolic heart failure. Have not been able to take care of his salt intake and fluid intake recently. Takes Diamox every other day and Bumex every other day at home. Continue with Diamox every other day. Start on IV Lasix 40 mg daily. Strict input output charting, daily weights. Fluid restriction to less than 1500 cc. Qualifiers: Heart failure type: diastolic Heart failure chronicity: chronic Qualified Code(s): I50.32 - Chronic diastolic (congestive) heart failure (5) Goals of care, counseling/discussion: Patient has DNR/DNI in the past. Discussed in detail again. Patient would like to think further before making a decision. Okay with DNR for now. Plan Mechanical soft diet Protonix OPD prophylaxis Heparin 5000 every 12 daily for DVT prophylaxis Admit to ICU. Attestations 2 Medical Necessity Statement*: Admission for more than 2 midnights for management of hypercapnic and hypoxic respiratory failure in setting of COPD exacerbation, CHF exacerbation leading to respiratory acidosis Diagnoses Acute and chronic respiratory failure with hypercapnia J96.22 Acute exacerbation of chronic obstructive airways disease J44.1 Respiratory acidosis E87.29 Chronic diastolic congestive heart failure I50.32 Heart failure type: diastolic Heart failure chronicity: chronic Goals of care, counseling/discussion Z71.89
[2024-03-19] MEDS: potassium chloride ER 20 mEq Tablet 40 MEQ PO (17:23)
[2024-03-19] MEDS: gabapentin 300 mg Capsule PO (17:23)
[2024-03-19] MEDS: FUROsemide 10 mg/mL SDV 4mL 40 MG IVP (17:23)
[2024-03-19] MEDS: ranolazine (12HR) 500 mg Tablet PO (17:24)
[2024-03-19] MEDS: budesonide 0.5 mg/2 mL Neb INHALATION (19:42)
[2024-03-19] MEDS: trazodone 100 mg Tablet PO (22:19)
[2024-03-20] VITALS (21 sets, daily range): BP systolic 98–146; BP diastolic 58–86; PULSE 71–108; RESP 13–29; TEMP 36.6–37.4; O2SAT 92–100
[2024-03-20] MEDS: ipratropium-albuterol 3 mL Neb INHALATION ×4 (01:48→20:36)
[2024-03-20] MEDS: methylPREDNISolone sod succ 40 mg/mL INJ IVP ×4 (02:37→21:15)
[2024-03-20] MEDS: heparin 5,000 unit/mL INJ 1 mL 5000 UNIT SUBCUT ×2 (02:37→14:10)
[2024-03-20 06:25] LABS: Basophils % 0.1 %; Hematocrit 39.7 % (37-53); Lymphocytes # 0.8 10^3/uL (0.8-4.8); Lymphocytes % 9.2 %; Mean Corpuscular HGB Conc 30.5 g/dL (30-55); Mean Corpuscular Volume 98.5 fl (82-101); Mean Platelet Volume 9.3 fL (7.4-10.4); Monocytes # 0.1 10^3/uL (0.2-0.9); Monocytes % 1.2 %; Neutrophils # 7.62 10^3/uL (1.8-7.7); Neutrophils % 88.3 %; Nucleated Red Blood Cells % 0 %; Platelet Count 216 10^3/cmm (157-399); Red Blood Count 4.03 10^6/uL (3.85-5.65); Red Cell Distribution Width 12.5 % (12.1-15.1); White Blood Count 8.62 10^3/uL (3.29-11.43)
[2024-03-20 06:43] LABS: Alanine Aminotransferase 15 U/L (0-41); Albumin Level 3.4 g/dL (3.5-5.2); Alkaline Phosphatase 80 U/L (40-130); Aspartate Amino Transferase 12 U/L (0-40); Blood Urea Nitrogen 18 mg/dL (8-23); Calcium 9.2 mg/dL (8.5-10.5); Carbon Dioxide 26 mmol/L (22-29); Chloride 101 mmol/L (98-107); Creatinine Clr Calc Pharmacy 65.4463; Globulin 3.4 g/dL (1.3-4.6); Glomerular Filtration Rate 66.8 mL/min (90-130); Glucose 296 mg/dL (65-115); Magnesium 2.1 mg/dL (1.7-2.3); Osmolality Calculated 299 mOsm/kg (285-295); Phosphorus 1.5 mg/dL (2.5-4.5); Sodium 138 mmol/L (136-145); Total Bilirubin 0.2 mg/dL (0.15-1.2); Total Protein 6.8 g/dL (6.6-8.7)
[2024-03-20 06:48] LABS: Anion Gap 15.5 (5-19); Potassium 4.5 mmol/L (3.5-5.1)
[2024-03-20] MEDS: aspirin 81 mg EC Tablet PO (08:27)
[2024-03-20] MEDS: acetaZOLAMIDE 250 mg Tablet PO ×2 (08:27→17:15)
[2024-03-20] MEDS: ranolazine (12HR) 500 mg Tablet PO ×2 (08:27→17:15)
[2024-03-20] MEDS: gabapentin 300 mg Capsule PO ×2 (08:27→17:15)
[2024-03-20] MEDS: potassium chloride ER 20 mEq Tablet 40 MEQ PO ×2 (08:28→17:15)
[2024-03-20] MEDS: budesonide 0.5 mg/2 mL Neb INHALATION ×2 (09:42→20:36)
--- NOTE | 2024-03-20 09:54 | PC.NURSE ---
Pt had bring him in biscuits and gravy, pancake and eggs. This is after he ate half of his tray this am. He also has had a refill of his large water cup an hour after it has just been filled. This nurse suspects he is not complaint with a diet appropriate for CHF.
--- NOTE | 2024-03-20 11:20 | PM.PN ---
Subjective Subjective: No acute events overnight. Patient has remained hemodynamically stable and afebrile. Seen with family at bedside bedside today. Today morning patient was on 2 L of oxygen supplementation. Post breakfast he felt tired so was placed back on the BiPAP. During examination he requested BiPAP to be taken off and was able to maintain saturation and have complete conversation on 2 L. On BiPAP with 2 L patient has been saturating more than 98%. Vitals/I&O/Wt Last Vital Signs Temp 97.8 F 03/20/24 08:00 Pulse 73 03/20/24 11:00 Resp 23 H 03/20/24 11:00 BP 133/72 03/20/24 11:00 Pulse Ox 97 03/20/24 11:00 O2 Del Method Nasal Cannula 03/20/24 09:42 O2 Flow Rate 2 03/20/24 09:42 FiO2 25 03/20/24 10:22 03/19/24 03/20/24 03/20/24 22:59 06:59 14:59 Intake Total 200 / 200 300 / 500 650 / 650 Output Total 1175 / 1175 625 / 1800 175 / 175 Balance -975 / -975 -325 / -1300 475 / 475 Weight last 48 hrs Weight 102.512 kg Physical Exam Narrative: General: No acute distress, AO x3, sitting up in chair on nasal cannula HEENT: PERRLA, pupils bilaterally equal and reactive Chest:B/l bronchial breath sounds all over lung bryant occasional rhonchi and coarse crackles, decreased air entry all over lung bryant CVS: S1-S2 regular, no murmurs, no tachycardia, no gallops, no rubs Abdomen: Soft, nontender, no organomegaly, bowel sounds present Neuro: No focal deficits, no facial deformity, AO x3, power 5/5 in all limbs Extremity: Bilateral 1+ pitting edema up to mid thigh Data 03/20/24 06:11 03/20/24 06:11 Micro: Microbiology 03/19/24 11:35 Blood Culture - Preliminary Blood SPECIMEN COLLECTED 03/19/24 11:30 Blood Culture - Preliminary Blood SPECIMEN COLLECTED A&P Assessment and plan (1) Acute and chronic respiratory failure with hypercapnia: Most likely in setting of COPD exacerbation and congestive heart failure. Patient has end-stage COPD. At baseline on 2 L oxygen supplementation. BiPAP as needed and at night. Will try to test patient's home BiPAP to see if it is working appropriately. Continue with baseline oxygen supplementation if saturations are maintained over 88%. Saturating more than 95% while on BiPAP on 2 L. Have requested to remove oxygen bleeding into the BiPAP and monitoring the saturations. Repeat ABG in AM. No concerns for PE. Respiratory viral panel negative, sputum culture pending. No leukocytosis, no fever. For now there are no concerns for pneumonia so we will hold off on IV antibiotics. (2) Acute exacerbation of chronic obstructive airways disease: Wean Solu-Medrol to 40 mg every 8 hourly. DuoNeb every 6 hour, Pulmicort twice daily. Add Flonase twice daily Oxygen supplementation keeping saturation over 88%. (3) Respiratory acidosis: (4) Congestive heart failure: Last echocardiogram shows EF 59% with mild LVH, thickened aortic valve. History of diastolic heart failure. Have not been able to take care of his salt intake and fluid intake recently. Takes Diamox every other day and Bumex every other day at home. Continue with Diamox every other day, IV Lasix 40 mg daily. Strict input output charting, daily weights. Fluid restriction to less than 1500 cc. Qualifiers: Heart failure chronicity: chronic Heart failure type: diastolic Qualified Code(s): I50.32 - Chronic diastolic (congestive) heart failure (5) Goals of care, counseling/discussion: Patient has DNR/DNI in the past. Discussed in detail again today. We discussed that given his severe COPD and restrictive lung disease because of scoliosis he is at higher risk of significant injury to the back and to the bones on chest compressions and possibility of ventilator dependence if he is intubated is very high. Patient verbalized understanding and does not want to go through all of that. He wants to remain DNR/DNI. Discussion was done with family members at bedside. Plan Mechanical soft diet Protonix OPD prophylaxis Heparin 5000 every 12 daily for DVT prophylaxis Transfer to [facility] floor. Attestations Medical Necessity Statement*: Requires further hospitalization for management of hypoxic and hypercapnic acute on chronic respiratory failure in setting of COPD and restrictive lung disease from scoliosis Diagnoses Acute and chronic respiratory failure with hypercapnia J96.22 Acute exacerbation of chronic obstructive airways disease J44.1 Respiratory acidosis E87.29 Chronic diastolic congestive heart failure I50.32 Heart failure chronicity: chronic Heart failure type: diastolic Goals of care, counseling/discussion Z71.89
[2024-03-20] MEDS: pantoprazole 40 mg SDV IVP (14:10)
--- NOTE | 2024-03-20 15:24 | PC.NURSE ---
Report to Med/surg I called report to Vandana BOURNE from Med/Surg. Patient was taken to room 252-1 in wheelchair on 1ln/nc and then was transfered over to recliner. Gave vital signs to nurse and showed family to room. Patient denied any needs at that time from me.
[2024-03-20] MEDS: fluticasone nasal spray 16gm Btl 1 SPRAY NASAL (17:16)
[2024-03-20] MEDS: bisacodyl 5 mg Tablet 10 MG PO (17:21)
[2024-03-20] MEDS: FUROsemide 10 mg/mL SDV 4mL 40 MG IVP (17:46)
[2024-03-20] MEDS: trazodone 100 mg Tablet PO (21:15)
[2024-03-21] VITALS (9 sets, daily range): BP systolic 120–129; BP diastolic 59–72; PULSE 76–89; RESP 15–19; TEMP 36.6–36.8; O2SAT 91–99
[2024-03-21] MEDS: heparin 5,000 unit/mL INJ 1 mL 5000 UNIT SUBCUT (02:12)
[2024-03-21] MEDS: ipratropium-albuterol 3 mL Neb INHALATION ×3 (02:24→14:34)
[2024-03-21 06:35] LABS: Basophils % 0.1 %; Hematocrit 38.5 % (37-53); Lymphocytes # 0.7 10^3/uL (0.8-4.8); Lymphocytes % 6.3 %; Mean Corpuscular HGB Conc 29.6 g/dL (30-55); Mean Corpuscular Hemoglobin 29.8 pg (27-33); Mean Corpuscular Volume 100.5 fl (82-101); Mean Platelet Volume 9.6 fL (7.4-10.4); Monocytes # 0.4 10^3/uL (0.2-0.9); Monocytes % 3.6 %; Neutrophils # 10.47 10^3/uL (1.8-7.7); Neutrophils % 88.8 %; Nucleated Red Blood Cells % 0 %; Platelet Count 241 10^3/cmm (157-399); Red Blood Count 3.83 10^6/uL (3.85-5.65); White Blood Count 11.79 10^3/uL (3.29-11.43)
[2024-03-21 06:56] LABS: Alanine Aminotransferase 14 U/L (0-41); Albumin Level 3.5 g/dL (3.5-5.2); Alkaline Phosphatase 75 U/L (40-130); Aspartate Amino Transferase 11 U/L (0-40); Blood Urea Nitrogen 22 mg/dL (8-23); Calcium 8.3 mg/dL (8.5-10.5); Carbon Dioxide 29 mmol/L (22-29); Chloride 106 mmol/L (98-107); Globulin 3.1 g/dL (1.3-4.6); Glomerular Filtration Rate 74.5 mL/min (90-130); Glucose 235 mg/dL (65-115); Osmolality Calculated 305 mOsm/kg (285-295); Sodium 142 mmol/L (136-145); Total Bilirubin 0.2 mg/dL (0.15-1.2); Total Protein 6.6 g/dL (6.6-8.7)
[2024-03-21 06:57] LABS: Anion Gap 11.5 (5-19); Potassium 4.5 mmol/L (3.5-5.1)
[2024-03-21] MEDS: ranolazine (12HR) 500 mg Tablet PO (09:29)
[2024-03-21] MEDS: gabapentin 300 mg Capsule PO (09:29)
[2024-03-21] MEDS: potassium chloride ER 20 mEq Tablet 40 MEQ PO (09:29)
[2024-03-21] MEDS: aspirin 81 mg EC Tablet PO (09:29)
[2024-03-21] MEDS: fluticasone nasal spray 16gm Btl 1 SPRAY NASAL (09:30)
[2024-03-21] MEDS: budesonide 0.5 mg/2 mL Neb INHALATION (09:40)
[2024-03-21] MEDS: ondansetron 2 mg/ML SDV 2 mL 4 MG IVP (10:15)
[2024-03-21] MEDS: methylPREDNISolone sod succ 40 mg/mL INJ IVP (10:16)
[2024-03-21] MEDS: acetaminophen 325 mg Tablet 650 MG PO (12:45)
--- NOTE | 2024-03-21 13:19 | P.DS_ITS ---
Discharge Providers Date of Admission: 03/19/24 14:09 Date of Discharge: March 21, 2024 Attending Provider at Admission: Christiano Tucker MD Attending Provider at Discharge: Christiano Tucker MD Primary Care Provider: Saji York Diagnoses at Discharge Discharge Diagnosis (1) Acute and chronic respiratory failure with hypercapnia: Status: Acute (2) Acute exacerbation of chronic obstructive airways disease: Status: Acute (3) Respiratory acidosis: Status: Acute (4) Congestive heart failure: Status: Acute Qualifiers: Heart failure type: diastolic Heart failure chronicity: chronic Qualified Code(s): I50.32 - Chronic diastolic (congestive) heart failure (5) Goals of care, counseling/discussion: Status: Acute Reason for Visit Reason for Visit: weakness, dizzy Hospital Course Hospital Course Sukumar Bangura is a 68 year old male congestive heart failure, obesity, scoliosis, end-stage COPD on 2 L of baseline oxygen supplementation during the day and 6 L at night along with AVAPS was brought into the ER today by his spouse when he was found to be incoherent and confused at home since around 3 AM. In the ER he was found to have hypercapnic respiratory failure with pCO2 of more than 80 hence was placed on BiPAP. As per the patient he there has been no changes in the medications. He received a new BiPAP recently and believes it is not working well. Has been complaining of increased cough and runny nose recently. Has not been able to control his salt intake over last 1 week. Thinks he has increased swelling of his lower limbs and has gained weight recently. He was placed on BiPAP in the ER and a repeat ABG showed improvement in pCO2 down to 66. When seen in the ICU he is on nasal cannula, awake and alert and able to complete conversation and follow direction. Patient was admitted to the ICU for further evaluation and management of hypercapnic respiratory failure. He was managed with BiPAP ventilation along with nebulization treatment and systemic steroids. He responded well to the treatment and has been at his baseline oxygen supplementation for last 24 to 36 hours. Patient's mentation has been better as well. It is believed that patient is getting somnolent because of new medication changes done as an outpatient including gabapentin which has been discontinued. He was also started back on his home BiPAP on which settings were adjusted as per the respiratory therapist. He has been discharged in hemodynamically stable condition on steroid taper, continued diuretic therapy as an outpatient, and was counseled again regarding lifestyle modification with congestive heart failure. Physical Exam Narrative: General: No acute distress, AO x3, sitting up in chair on nasal cannula HEENT: PERRLA, pupils bilaterally equal and reactive Chest:B/l bronchial breath sounds all over lung bryant occasional rhonchi and coarse crackles, decreased air entry all over lung bryant CVS: S1-S2 regular, no murmurs, no tachycardia, no gallops, no rubs Abdomen: Soft, nontender, no organomegaly, bowel sounds present Neuro: No focal deficits, no facial deformity, AO x3, power 5/5 in all limbs Extremity: Bilateral 1+ pitting edema up to mid thigh Discharge Data Studies Completed and Pending Completed Studies During Hospitalization Category Date Time Status XR chest 1V [id number] Stat Exams 03/19/24 10:54 Completed Pending at discharge Category Date Time Status Bacterial Antigen Stat Lab 03/19/24 14:12 Ordered Blood Culture Stat Lab 03/19/24 11:35 Results Legionella Antigen STAT Stat Lab 03/19/24 14:12 Ordered Sputum Culture and Gram Stain Routine Lab 03/20/24 16:12 Uncollected Urinalysis Routine Lab 03/18/24 15:09 Ordered Radiology Impressions Chest X-Ray 03/19/24 10:54 IMPRESSION: Stable abnormal chest as above. No acute abnormality. Laboratory Results WBC 11.79 10^3/uL (3.29-11.43) H 03/21/24 05:47 RBC 3.83 10^6/uL (3.85-5.65) L 03/21/24 05:47 Hgb 11.40 g/dL (11.27-16.99) 03/21/24 05:47 Hct 38.5 % (37-53) 03/21/24 05:47 MCV 100.5 fl (82-101) 03/21/24 05:47 MCH 29.8 pg (27-33) 03/21/24 05:47 MCHC 29.6 g/dL (30-55) L 03/21/24 05:47 RDW 13.0 % (12.1-15.1) 03/21/24 05:47 Plt Count 241 10^3/cmm (157-399) 03/21/24 05:47 MPV 9.6 fL (7.4-10.4) 03/21/24 05:47 Neut % (Auto) 88.8 % 03/21/24 05:47 Lymph % (Auto) 6.3 % 03/21/24 05:47 [place] % (Auto) 3.6 % 03/21/24 05:47 Eos % (Auto) 0.0 % 03/21/24 05:47 Baso % (Auto) 0.1 % 03/21/24 05:47 Neut # (Auto) 10.47 10^3/uL (1.8-7.7) H 03/21/24 05:47 Lymph # (Auto) 0.7 10^3/uL (0.8-4.8) L 03/21/24 05:47 [place] # (Auto) 0.4 10^3/uL (0.2-0.9) 03/21/24 05:47 Eos # (Auto) 0.0 10^3/uL (0.0-0.8) 03/21/24 05:47 Baso # (Auto) 0.0 10^3/uL (0.0-0.1) 03/21/24 05:47 Nucleated RBC % (auto) 0 % 03/21/24 05:47 Nucleated RBCs # 0.0 /100WBC 03/21/24 05:47 D-Dimer 0.99 ug/mLFEU (0-0.59) H 03/19/24 11:30 Specimen Type Arterial 03/19/24 13:10 Sample Site Radial, right 03/19/24 13:10 ABG pH 7.31 (7.35-7.45) L 03/19/24 13:10 ABG pCO2 66.1 mmHg (35-45) H* 03/19/24 13:10 ABG pO2 87.5 mmHg (80.0-100.0) 03/19/24 13:10 ABG PO2/FiO2 Ratio 0 03/19/24 13:10 ABG HCO3 33.4 mmol/L (22-26) H 03/19/24 13:10 ABG O2 Saturation 98.0 03/19/24 13:10 ABG Base Excess 5.4 mmol/L (-2.0-2.0) H 03/19/24 13:10 Humberto Test Pos 03/19/24 13:10 A-a O2 Gradient 1.3 mmHg (5-10) L 03/19/24 13:10 Hematocrit 34.6 % (42-52) L 03/19/24 13:10 Hgb O2 Saturation 95.1 % (95-100) 03/19/24 13:10 Carboxyhemoglobin 2.0 %THgb (0.4-20.1) 03/19/24 13:10 Methemoglobin 1.0 % (0.4-1.5) 03/19/24 13:10 Total Hemoglobin 11.3 g/dL (14-18) L 03/19/24 13:10 Sodium 139.0 mmol/L (131-143) 03/19/24 13:10 Potassium 4.0 mmol/L (3.5-5.0) 03/19/24 13:10 Glucose 159.0 mg/dL (70-115) H 03/19/24 13:10 Ionized Calcium 1.2 mmol/L (1.1-1.4) 03/19/24 13:10 O2 Delivery Device Bipap 03/19/24 13:10 O2 Liters/Min 2.0 % 03/19/24 11:20 FiO2 25.0 % 03/19/24 13:10 Industrial Services Worker ID Gd 03/19/24 13:10 Sodium 142 mmol/L (136-145) 03/21/24 05:47 Potassium 4.5 mmol/L (3.5-5.1) 03/21/24 05:47 Chloride 106 mmol/L (98-107) 03/21/24 05:47 Carbon Dioxide 29 mmol/L (22-29) 03/21/24 05:47 Anion Gap 11.5 (5-19) 03/21/24 05:47 BUN 22 mg/dL (8-23) 03/21/24 05:47 Creatinine 1.0 mg/dL (0.7-1.2) 03/21/24 05:47 GFR Calculation 74.5 mL/min (90-130) L 03/21/24 05:47 Glucose 235 mg/dL (65-115) H 03/21/24 05:47 Calculated Osmolality 305 mOsm/kg (285-295) H 03/21/24 05:47 Lactic Acid 1.5 mmol/L (0.5-2.2) 03/19/24 11:30 Calcium 8.3 mg/dL (8.5-10.5) L 03/21/24 05:47 Phosphorus 1.5 mg/dL (2.5-4.5) L 03/20/24 06:11 Magnesium 2.1 mg/dL (1.7-2.3) 03/20/24 06:11 Total Bilirubin 0.2 mg/dL (0.15-1.2) 03/21/24 05:47 AST 11 U/L (0-40) 03/21/24 05:47 ALT 14 U/L (0-41) 03/21/24 05:47 Alkaline Phosphatase 75 U/L (40-130) 03/21/24 05:47 Troponin T Baseline 11 ng/L (0-15) 03/19/24 11:30 C-Reactive Protein 11.7 mg/L (0.0-4.9) H 03/19/24 11:30 Total Protein 6.6 g/dL (6.6-8.7) 03/21/24 05:47 Albumin 3.5 g/dL (3.5-5.2) 03/21/24 05:47 Globulin 3.1 g/dL (1.3-4.6) 03/21/24 05:47 Procalcitonin 0.11 ng/mL (0-0.5) 03/19/24 11:30 Urine Color Yellow (Yellow) 03/19/24 13:38 Urine Appearance Clear (CLEAR) 03/19/24 13:38 Urine pH 6 (5-7) 03/19/24 13:38 Ur Specific [place] 1.020 (1.005-1.030) 03/19/24 13:38 Urine Protein Neg (Negative) 03/19/24 13:38 Urine Glucose (UA) Trace (Normal) H 03/19/24 13:38 Urine Ketones Negative (Negative) 03/19/24 13:38 Urine Blood Neg (Negative) 03/19/24 13:38 Urine Nitrate Negative (Negative) 03/19/24 13:38 Urine Bilirubin Neg (Negative) 03/19/24 13:38 Urine Urobilinogen Norm mg/dL (Negative) 03/19/24 13:38 Ur Leukocyte Esterase Negative (Negative) 03/19/24 13:38 Urine RBC None /hpf (0-2) 03/19/24 13:38 Urine WBC None /hpf (0-5) 03/19/24 13:38 Ur Squamous Epith Cells None /hpf (0-5) 03/19/24 13:38 Amorphous Sediment Not Reportable 03/19/24 13:38 Urine Bacteria 1+ /hpf (NONE) H 03/19/24 13:38 Adenovirus (PCR) Not detected (NOT DETECT) 03/19/24 13:12 C. pneumoniae DNA (PCR) Not detected (NOT DETECT) 03/19/24 13:12 Coronavirus 229E (PCR) Not detected (NOT DETECT) 03/19/24 13:12 Human Metapneumovir PCR Not detected (NOT DETECT) 03/19/24 13:12 Influenza A (H1) PCR Not detected (NOT DETECT) 03/19/24 13:12 Influ A (H1/09) PCR Not detected (NOT DETECT) 03/19/24 13:12 Influenza A (H3) PCR Not detected (NOT DETECT) 03/19/24 13:12 Influenza Type A (PCR) Not detected (NOT DETECT) 03/19/24 13:12 Influenza Type B (PCR) Not detected (NOT DETECT) 03/19/24 13:12 M. pneumoniae (PCR) Not detected (NOT DETECT) 03/19/24 13:12 Parainfluenza 1 (PCR) Not detected (NOT DETECT) 03/19/24 13:12 Parainfluenza 2 (PCR) Not detected (NOT DETECT) 03/19/24 13:12 Parainfluenza 3 (PCR) Not detected (NOT DETECT) 03/19/24 13:12 Parainfluenza 4 (PCR) Not detected (NOT DETECT) 03/19/24 13:12 RSV Type A (PCR) Not detected (NOT DETECT) 03/19/24 13:12 RSV Type B (PCR) Not detected (NOT DETECT) 03/19/24 13:12 Entero/Rhino (PCR) Not detected (NOT DETECT) 03/19/24 13:12 SARS-CoV-2 (PCR) Not detected (NOT DETECT) 03/19/24 13:12 Vitals Last Vital Signs Temp 97.9 F 03/21/24 12:27 Pulse 87 03/21/24 12:27 Resp 18 03/21/24 12:27 BP 129/59 03/21/24 12:27 Pulse Ox 98 03/21/24 12:27 O2 Del Method Nasal Cannula 03/21/24 12:27 O2 Flow Rate 1.5 03/21/24 09:42 FiO2 24 03/21/24 04:00 Discharge Plan Discharge Patient Disposition: Home Condition: Stable Prescriptions: New prednisone 10 mg tablet See Taper PO DIRECTED Qty: 42 0RF Taper: predniSONE 60-10 60 mg Daily for 2 Days and 0 Hour 50 mg Daily for 2 Days and 0 Hour 40 mg Daily for 2 Days and 0 Hour 30 mg Daily for 2 Days and 0 Hour 20 mg Daily for 2 Days and 0 Hour 10 mg Daily for 2 Days and 0 Hour Rx Instructions: see taper instructions Continued ranolazine 500 mg tablet extended release 12 hr 500 mg PO BID aspirin 81 mg tablet,delayed release (DR/EC) 81 mg PO DAILY Qty: 30 0RF hydrocodone-acetaminophen 5-325 mg tablet 1 tab PO Q8H PRN (Reason: Pain) bumetanide 2 mg Tablet See Rx Instructions .ROUTE .COMPLEX Rx Instructions: TAKE 2 MG BY MOUTH TWICE DAILY ON FRIDAY, FRIDAY, FRIDAY, AND FRIDAY trazodone 150 mg tablet 150 mg PO BEDTIME potassium chloride 20 mEq tablet extended release 40 meq PO BID acetazolamide 250 mg tablet See Rx Instructions .ROUTE .COMPLEX Rx Instructions: TAKE 1 TABLET BY MOUTH TWICE DAILY ON FRIDAY, FRIDAY AND FRIDAY. DOK Plus 8.6-50 mg Tablet 1 tab-cap PO DAILY PRN (Reason: Constipation) spironolactone 25 mg tablet 25 mg PO DAILY Discontinued gabapentin 300 mg capsule 300 mg PO BID Discharge Orders: Discharge Order (Routine); Ordered 03/21/24 Ordered By: Christiano Tucker Referrals: Saji York [Primary Care Provider] - 7-10 days Discharge Diet: Cardiac Discharge Activity: Resume usual activity and Increase activity as tolerated Patient Instructions: Opioid Safety Activity Restrictions/Additional Instructions: Do not take gabapentin anymore as it is making you more sleepy and somnolent. Keep oxygen supplementation keeping saturation around 90 to 92%. Continue wearing of BiPAP as before. Discharge Attestations Time Spent in Discharge Care*: greater than 30 min Specific Discharge Activities: educating patient, educating and/or supporting family/caregiver, discussing with pcp/other providers, discussing with showcase maker/social workers/dc planners, documenting/other paperwork and evaluating patient/reviewing data Status at Discharge: Cognitive status at discharge: cognitively intact , Behavioral status at discharge: cooperative , Functional status at discharge: other assisted ambulation , Overall status at discharge: patient is back to baseline Quality Metrics Clinical Quality Measures [ No reported AMI, CVA or VTE this stay] Coding Level of Care Code 00931 Total time (in minutes) for Discharge: 60 Diagnoses Acute and chronic respiratory failure with hypercapnia J96.22 Acute exacerbation of chronic obstructive airways disease J44.1 Respiratory acidosis E87.29 Chronic diastolic congestive heart failure I50.32 Heart failure type: diastolic Heart failure chronicity: chronic Goals of care, counseling/discussion Z71.89
== END 2024-03-21 17:55 | disposition home or self-care (01) | DRG 189 ==
LOC: ER 12:45 → ICU 15:07 → MEDSURG 03-20 15:08
PROVIDERS: Admitting Provider Student in an Organized Health Care Education/Training Program; Emergency Provider Emergency Medicine; PCP Family Medicine; Visit Provider Student in an Organized Health Care Education/Training Program
DX: J96.22 Acute and chronic respiratory failure with hypercapnia (principal); I50.33 Acute on chronic diastolic (congestive) heart failure; J44.1 Chronic obstructive pulmonary disease with (acute) exacerbation; Z68.41 Body mass index [BMI] 40.0-44.9, adult; Z79.82 Long term (current) use of aspirin; Z66 Do not resuscitate; Z99.81 Dependence on supplemental oxygen; Z99.89 Dependence on other enabling machines and devices; K21.9 Gastro-esophageal reflux disease without esophagitis; Z87.891 Personal history of nicotine dependence; G47.33 Obstructive sleep apnea (adult) (pediatric); E66.9 Obesity, unspecified; M41.9 Scoliosis, unspecified; J99 Respiratory disorders in diseases classified elsewhere
CPT/HCPCS: 36415; 36600; 71045; 80051; 80053; 81001; 82330; 82805; 83605; 83735; 84100; 84145; 84484; 85025; 85378; 86140; 87040; 87486; 87581; 87633; 93005; 94640; 94660; 94664; 96372; 96374; 96376; 99285; C9113; J1644; J1940; J2405; J2919; J7613; J7626

== ENCOUNTER → 2024-03-25 13:54 | Outpatient (BNVA) | payer MEDICARE, MEDICAID, SELFPAY | PROVIDERS: PCP Family Medicine; Visit Provider Internal Medicine Pulmonary Disease | DX: J96.12 Chronic respiratory failure with hypercapnia (principal); Z87.891 Personal history of nicotine dependence; I50.32 Chronic diastolic (congestive) heart failure; R42 Dizziness and giddiness; Z99.81 Dependence on supplemental oxygen | CPT/HCPCS: 99214 ==

== ENCOUNTER → 2024-05-07 10:50 | Outpatient (BNVA) | payer MEDICARE, MEDICAID, SELFPAY | PROVIDERS: PCP Family Medicine; Visit Provider Physician Assistant | DX: M65.311 Trigger thumb, right thumb; M65.321 Trigger finger, right index finger; M65.331 Trigger finger, right middle finger | CPT/HCPCS: 73130; 99203 ==

== ENCOUNTER 2024-05-26 16:09 | Emergency (ER) | payer MEDICARE, MEDICAID, SELFPAY ==
[2024-05-26 16:26] VITALS: BP 103/56; PULSE 75; RESP 16; TEMP 36.7; O2SAT 96
[2024-05-26 17:04] LABS: Basophils % 0.2 %; Hematocrit 42.1 % (37-53); Lymphocytes # 1.6 10^3/uL (0.8-4.8); Mean Corpuscular HGB Conc 30.9 g/dL (30-55); Mean Corpuscular Hemoglobin 30.1 pg (27-33); Mean Corpuscular Volume 97.5 fl (82-101); Mean Platelet Volume 9.3 fL (7.4-10.4); Monocytes # 0.8 10^3/uL (0.2-0.9); Neutrophils # 7.56 10^3/uL (1.8-7.7); Neutrophils % 74.7 %; Nucleated Red Blood Cells % 0 %; Platelet Count 259 10^3/cmm (157-399); Red Blood Count 4.32 10^6/uL (3.85-5.65); Red Cell Distribution Width 13.2 % (12.1-15.1); White Blood Count 10.12 10^3/uL (3.29-11.43)
--- NOTE | 2024-05-26 17:04 | XRR_ITS ---
PROCEDURE INFORMATION: Exam: XR Chest Exam date and time: 05/26/2024 5:08 PM Age: 69 years old Clinical indication: Shortness of breath and other: Bloody stool; Prior surgery; Surgery date: 6+ months; Surgery type: Spine; Additional info: Dyspnea/cough TECHNIQUE: Imaging protocol: Radiologic exam of the chest. Views: 1 view. COMPARISON: CR XR chest 1V [id number] 03/19/2024 11:55 AM FINDINGS: Lungs: Lungs appear free of acute disease. Appearance of the lung bryant is stable. Pleural spaces: Unremarkable. No pleural effusion. No pneumothorax. Heart/Mediastinum: Stable cardiomediastinal structures. Bones/joints: Old right rib deformities and scoliotic curvature are noted. Stable single hetal extending from the lower cervical spine into the upper lumbar spine which is incompletely visualized. XR/XR chest 1V portable [id number] IMPRESSION: Unchanged chest x-ray. No definite acute findings.
--- NOTE | 2024-05-26 17:04 | ECG_ITS ---
[facility] Test Date: 2024-05-26 Pat Name: Sukumar Bangura Department: Room: Gender: Male Shucker: : 1955 Requested By: Venkatesh Prakash Order Number: [id number] Garcia MD: Darryl Guerra M.D. Measurements Intervals [place] Rate: 67 P: 72 VA: 152 QRS: -2 QRSD: 98 T: 31 QT: 394 QTc: 416 Interpretive Statements SINUS RHYTHM LOW QRS VOLTAGE IN PRECORDIAL LEADS [QRS DEFLECTION < 1.0 mV IN CHEST LEADS] INCOMPLETE RIGHT BUNDLE BRANCH BLOCK [90+ ms QRS DURATION, TERMINAL R IN V1/V2, 40+ ms S IN I/aVL/V4/V5/V6] MINIMAL VOLTAGE CRITERIA FOR LVH, CONSIDER NORMAL VARIANT [MEETS CRITERIA IN ONE OF: R(aVL), S(V1), R(V5), R(V5/V6)+S(V1)] NONSPECIFIC ST ELEVATION [0.05+ mV ST ELEVATION] Compared to ECG 03/19/2024 11:24:06 Low QRS voltage now present ST (T wave) deviation now present Electronically Signed On 05-26-2024 22:44:23 CDT by Darryl Guerra M.D. [id number]
--- NOTE | 2024-05-26 17:04 | CTR_ITS ---
PROCEDURE INFORMATION: Exam: CT Abdomen And Pelvis With Contrast Exam date and time: 05/26/2024 6:16 PM Age: 69 years old Clinical indication: Abdominal pain; Generalized; Additional info: Abd pain TECHNIQUE: Imaging protocol: Computed tomography of the abdomen and pelvis with contrast. Radiation optimization: All CT scans at this facility use at least one of these dose optimization techniques: automated exposure control; mA and/or kV adjustment per patient size (includes targeted exams where dose is matched to clinical indication); or iterative reconstruction. Contrast material: OMNI 350; Contrast volume: 100 ml; Contrast route: INTRAVENOUS (IV); COMPARISON: CT ang ches abdpel [id number] 03/02/2022 6:03 PM RADIATION DOSE METRICS: Total DLP (mGy-cm): 1314 FINDINGS: Lungs: The study field of view includes from nearly the lung apices to the proximal thighs. Diffusely low lung volumes. Central airways are patent. Mild bibasilar compressive atelectasis. Elevated hemidiaphragms, left greater than right. No cardiomegaly. Liver: Normal. No mass. Gallbladder and biliary ducts: Gallbladder is not visualized, likely surgically absent. Prominent CBD up to 1.1 cm likely due to reservoir effect. No intrahepatic biliary dilation. Pancreas: Normal. No ductal dilation. Spleen: Normal. No splenomegaly. Adrenal glands: Normal. No mass. Kidneys and ureters: nonobstructive 10 x 8 mm lower pole left renal stone. A few subcentimeter hypodense foci in the left kidney are too small to characterize, statistically likely due to benign etiology/cysts. Stomach and bowel: Multiple sigmoid diverticuli. No acute inflammatory change. Moderate amount of colonic stool. Surgical clips are noted adjacent to the gastric fundus/hiatus. Appendix: The appendix may be surgically absent, surgical sutures in the tip of the cecum. No pericecal inflammatory change. Intraperitoneal space: Unremarkable. No free air. No significant fluid collection. Vasculature: Unremarkable. No abdominal aortic aneurysm. Lymph nodes: Unremarkable. No enlarged lymph nodes. Urinary bladder: Unremarkable as visualized. Reproductive: Prostate is borderline size. Bones/joints: Multilevel posterior spinal fusion from the upper thoracic spine to L4 level. Multilevel fusion of the vertebral endplates including T4-T12 level and fusion of the posterior elements . Severe rotary thoracic and lumbar kyphoscoliosis. Significant thoracic cage deformity . Presumed previous bone graft harvest site in the posterior right iliac bone. At least [id number] lower lumbar canal and foraminal stenosis. Mild avascular necrosis without articular collapse involving the anterior superior right femoral head, proximally 15% of the articular surface is affected. Mild degenerative bilateral hip arthrosis. Soft tissues: Small fat containing left inguinal hernia without evident complications. CT/CT abdomen pelvis w con* [id number] IMPRESSION: 1. No clear-cut acute abdominopelvic abnormality. 2. Multiple sigmoid and other scattered colonic diverticuli without clear-cut inflammatory change. 3. Nonobstructive left renal stone. 4. 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 Other chronic findings detailed above. COMMENTS: Consistent with the [employer]'s Incidental Findings Committee white paper (J Am Navjot Radiol 2018): Any incidental renal lesion less than 1 cm or classified as too small to characterize, or any incidental cystic renal lesion characterized as simple-appearing, is likely benign. No follow-up imaging is recommended for these lesions per consensus recommendations based on imaging criteria.
--- NOTE | 2024-05-26 17:05 | ED_ITS ---
Documented by User: Venkatesh Burger DO 05/27/24 06:35 HPI - GI Bleed 2 General: Chief complaint: GI Bleed Stated complaint: blood in stool Time Seen by Provider: 05/26/24 17:03 Source: patient Mode of arrival: wheelchair History of Present Illness: 69-year-old male presents emergency room complaining of bloody stools over the last couple of days worse today discolored the entire entire toilet bowl. He does have problems constipation the past few is not taking a lot of laxatives stool softeners he states his stools have been soft he has not been straining at all. He does take aspirin daily is not on any other anticoagulants. He has been mildly nauseated for which he is taken Zofran at home with good relief of symptoms. He denies any hematemesis or coffee-ground emesis MD complaint: gross hematochezia Onset (ago): day(s) Relieving factors: none Exacerbating factors: none Associated symptoms: Denies abdominal pain, chills, easy bruising, epistaxis, fever(s), headache(s), malaise, nausea, other bleeding, poor appetite, rash, syncope, vomiting or weakness Review of Systems 2 Const: Denies: fever(s), chills or malaise ENMT: Denies: epistaxis Card: Denies: syncope Resp: Denies: dyspnea GI: Reports: hematochezia; Denies: abdominal pain, nausea or vomiting : Denies: dysuria, urinary frequency or urinary urgency Musc: Denies: neck pain or back pain Skin/Breast: Denies: rash Neuro: Denies: headache(s) Chaitanya/Lymph: Denies: easy bruising PFSH ED 2 PFSH: Medical History COVID-19 Acute kidney injury superimposed on chronic kidney disease CELESTE (obstructive sleep apnea) Obesity Chronic hypercapnic respiratory failure Restrictive lung disease due to kyphoscoliosis Congestive heart failure Tobacco chew use Fixation hardware in spine Acquired arm deformity GERD (gastroesophageal reflux disease) Kyphoscoliosis Hyperglycemia Scoliosis COPD (chronic obstructive pulmonary disease) Surgical History History of [place] fundoplication History of appendectomy H/O arthroscopy of shoulder Hx of cholecystectomy Family History Father Cancer Social History Smoking and tobacco/nicotine status: former use of tobacco/nicotine Quit status (tobacco/nicotine): has quit using Year quit tobacco: 2010 Former quit date comment: 2ppd x 10 years Second hand smoke exposure: No Alcohol intake: never Substance/Drug Use: never Lives independently: Yes Household members: spouse Housing: House Marital status: service: No Current occupational status: employed 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 Pets and animals: Yes Do you think of yourself as: Straight/Heterosexual Current gender identity: Male Physical Exam 2 Const: COMMON NORMALS: no acute distress GENERAL APPEARANCE: cooperative and comfortable ORIENTATION/CONSCIOUSNESS: Yes awake, Yes oriented to person, Yes oriented to place and Yes oriented to time HENMT: COMMON NORMALS: normocephalic, atraumatic and hearing grossly normal bilaterally HEAD & SCALP: normocephalic and atraumatic Resp: COMMON NORMALS: normal respiratory effort, No retractions, No use of accessory muscles and clear to auscultation bilaterally AUSCULTATION: clear to auscultation bilaterally Cardio: COMMON NORMALS: regular rate, regular rhythm and No murmurs present (Cardio) RATE: regular rate RHYTHM: regular rhythm GI: COMMON NORMALS: Soft to palpation and No hepatosplenomegaly present A USCULTATION: Yes normoactive bowel sounds PALPATION: Yes Soft to palpation, No Tenderness to palpation present (GI), No Guarding due to palpation present (GI) and Yes No hepatosplenomegaly present Extremity: COMMON NORMALS: normal to inspection, capillary refill normal, no clubbing, cyanosis or edema, no calf tenderness and no pedal edema Neuro: SENSORIUM/ORIENTATION: Yes oriented to person, Yes oriented to place and Yes oriented to time Skin: COMMON NORMALS: no rashes or lesions noted GENERAL SKIN EXAM: no rashes or lesions noted Course 2 Vital Signs: Vital signs: Vital Signs Temperature 98.0 F 05/26/24 16:26 Pulse Rate 78 05/26/24 19:34 Respiratory Rate 18 05/26/24 19:34 Blood Pressure 115/71 05/26/24 19:34 Pulse Oximetry 98 05/26/24 19:34 Oxygen Delivery Mi thod Nasal Cannula 05/26/24 18:35 Oxygen Flow Rate 1 05/26/24 16:26 MDM - GI Bleed Medical Decision Making Care signed out to Dr. Franco at change of shift. See final notes for diagnosis and disposition. Patient care was transitioned to ut at shift change. CT of the abdomen pelvis was pending. Lab work: Hemoglobin is actually up from previous at 13. So no significant anemia from GI bleeding. BUN and creatinine are stable at 26 and 0.9. His BUN is a little elevated today but ranges from about 15-26 in the past. Family was concerned about his pCO2. Today his bicarb is 26 which would indicate that his pCO2 is not elevated as there is no compensated levels of the bicarb. CT of the abdomen pelvis: No acute abnormalities. He has multiple colonic diverticuli without diverticulitis. Nonobstructive left renal stone. Chest x-ray: No acute process. No infiltrate. No pneumothorax. This was reviewed and interpreted by myself the ER physician. Assessment and plan: Hematochezia - Discharged home - Discussed plan with patient. Answered any questions. - Evaluation and treatment of this problem were appropriate in the emergency setting. Lab Data 05/26/24 16:49 05/26/24 16:49 Radiology Impressions Abdomen/Pelvis CT 05/26/24 17:04 IMPRESSION: 1. No clear-cut acute abdominopelvic abnormality. 2. Multiple sigmoid and other scattered colonic diverticuli without clear-cut inflammatory change. 3. Nonobstructive left renal stone. 4. 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 Other chronic findings detailed above. COMMENTS: Consistent with the [employer]'s Incidental Findings Committee white paper (J Am Navjot Radiol 2018): Any incidental renal lesion less than 1 cm or classified as too small to characterize, or any incidental cystic renal lesion characterized as simple-appearing, is likely benign. No follow-up imaging is recommended for these lesions per consensus recommendations based on imaging criteria. Chest X-Ray 05/26/24 17:04 IMPRESSION: Unchanged chest x-ray. No definite acute findings. Laboratory Results WBC 10.12 10^3/uL (3.29-11.43) 05/26/24 16:49 RBC 4.32 10^6/uL (3.85-5.65) 05/26/24 16:49 Hgb 13.00 g/dL (11.27-16.99) 05/26/24 16:49 Hct 42.1 % (37-53) 05/26/24 16:49 MCV 97.5 fl (82-101) 05/26/24 16:49 MCH 30.1 pg (27-33) 05/26/24 16:49 MCHC 30.9 g/dL (30-55) 05/26/24 16:49 RDW 13.2 % (12.1-15.1) 05/26/24 16:49 Plt Count 259 10^3/cmm (157-399) 05/26/24 16:49 MPV 9.3 fL (7.4-10.4) 05/26/24 16:49 Neut % (Auto) 74.7 % 05/26/24 16:49 Lymph % (Auto) 16.0 % 05/26/24 16:49 Pepin % (Auto) 8.0 % 05/26/24 16:49 Eos % (Auto) 0.0 % 05/26/24 16:49 Baso % (Auto) 0.2 % 05/26/24 16:49 Neut # (Auto) 7.56 10^3/uL (1.8-7.7) 05/26/24 16:49 Lymph # (Auto) 1.6 10^3/uL (0.8-4.8) 05/26/24 16:49 Pepin # (Auto) 0.8 10^3/uL (0.2-0.9) 05/26/24 16:49 Eos # (Auto) 0.0 10^3/uL (0.0-0.8) 05/26/24 16:49 Baso # (Auto) 0.0 10^3/uL (0.0-0.1) 05/26/24 16:49 Nucleated RBC % (auto) 0 % 05/26/24 16:49 Nucleated RBCs # 0.0 /100WBC 05/26/24 16:49 PT 12.30 SECONDS (12.1-14.9) 05/26/24 16:49 INR 0.89 (0.8-1.2) 05/26/24 16:49 Sodium 138 mmol/L (136-145) 05/26/24 16:49 Potassium 4.3 mmol/L (3.5-5.1) 05/26/24 16:49 Chloride 102 mmol/L (98-107) 05/26/24 16:49 Carbon Dioxide 26 mmol/L (22-29) 05/26/24 16:49 Anion Gap 14.3 (5-19) 05/26/24 16:49 BUN 26 mg/dL (8-23) H 05/26/24 16:49 Creatinine 0.9 mg/dL (0.7-1.2) 05/26/24 16:49 GFR Calculation 83.9 mL/min (90-130) L 05/26/24 16:49 Glucose 155 mg/dL (65-115) H 05/26/24 16:49 Calculated Osmolality 294 mOsm/kg (285-295) 05/26/24 16:49 Calcium 9.4 mg/dL (8.5-10.5) 05/26/24 16:49 Total Bilirubin 0.2 mg/dL (0.15-1.2) 05/26/24 16:49 AST 11 U/L (0-40) 05/26/24 16:49 ALT 20 U/L (0-41) 05/26/24 16:49 Alkaline Phosphatase 70 U/L (40-130) 05/26/24 16:49 Total Protein 6.9 g/dL (6.6-8.7) 05/26/24 16:49 Albumin 3.8 g/dL (3.5-5.2) 05/26/24 16:49 Globulin 3.1 g/dL (1.3-4.6) 05/26/24 16:49 Lipase 30 U/L (13-60) 05/26/24 16:49 Discharge Plan Discharge Patient Disposition: Home Clinical Impression: Hematochezia Condition: Stable Prescriptions: No Action ranolazine 500 mg tablet extended release 12 hr 500 mg PO BID aspirin 81 mg tablet,delayed release (DR/EC) 81 mg PO DAILY Qty: 30 0RF hydrocodone-acetaminophen 5-325 mg tablet 1 tab PO Q8H PRN (Reason: Pain) bumetanide 2 mg Tablet See Rx Instructions .ROUTE .COMPLEX Rx Instructions: TAKE 2 MG BY MOUTH TWICE DAILY ON FRIDAY, FRIDAY, FRIDAY, AND FRIDAY trazodone 150 mg tablet 150 mg PO BEDTIME potassium chloride 20 mEq tablet extended release 40 meq PO BID acetazolamide 250 mg tablet See Rx Instructions .ROUTE .COMPLEX Rx Instructions: TAKE 1 TABLET BY MOUTH TWICE DAILY ON FRIDAY, FRIDAY AND FRIDAY. sennosides-docusate sodium 8.6-50 mg Tablet 1 tab-cap PO DAILY PRN (Reason: Constipation) spironolactone 25 mg tablet 25 mg PO DAILY prednisone 10 mg tablet See Taper PO DIRECTED Qty: 42 0RF Taper: predniSONE 60-10 60 mg Daily for 2 Days and 0 Hour 50 mg Daily for 2 Days and 0 Hour 40 mg Daily for 2 Days and 0 Hour 30 mg Daily for 2 Days and 0 Hour 20 mg Daily for 2 Days and 0 Hour 10 mg Daily for 2 Days and 0 Hour Rx Instructions: see taper instructions Discharge Orders: Discharge ED (Routine); Ordered 05/26/24 Ordered By: Sravani Franco Referrals: Saji York [Primary Care Provider] - Discharge Diet: Usual diet Discharge Activity: Increase activity as tolerated Patient Instructions: Opioid Safety, Pain Management Activity Restrictions/Additional Instructions: Thank you for choosing [facility] for your healthcare needs today. Please realize this is an emergency room and that we are providing you with a medical screening exam and this may not be complete and all inclusive of all the testing and or work up that you may need to determine your ailment or severity of your illness. You have been screened and evaluated and felt safe for discharge. Health conditions do change or evolve sometimes and as such it is important that you follow up with your Primary Doctor to be re checked, 3-5 days is a general good time frame for follow up. You are always welcome to return to the ED for re assessment if your symptoms are worsening or you have new concerns Coding Level of Care Code ED Wares Sorter for Chg Fwd Documented by User: Sravani Franco MD 05/26/24 19:37 HPI - GI Bleed 2 General: Chief complaint: GI Bleed Stated complaint: blood in stool Time Seen by Provider: 05/26/24 17:03 PFSH ED 2 PFSH: Medical History COVID-19 Acute kidney injury superimposed on chronic kidney disease CELESTE (obstructive sleep apnea) Obesity Chronic hypercapnic respiratory failure Restrictive lung disease due to kyphoscoliosis Congestive heart failure Tobacco chew use Fixation hardware in spine Acquired arm deformity GERD (gastroesophageal reflux disease) Kyphoscoliosis Hyperglycemia Scoliosis COPD (chronic obstructive pulmonary disease) Surgical History History of [place] fundoplication History of appendectomy H/O arthroscopy of shoulder Hx of cholecystectomy Family History Father Cancer Social History Smoking and tobacco/nicotine status: former use of tobacco/nicotine Quit status (tobacco/nicotine): has quit using Year quit tobacco: 2010 Former quit date comment: 2ppd x 10 years Second hand smoke exposure: No Alcohol intake: never Substance/Drug Use: never Lives independently: Yes Household members: spouse Housing: House Marital status: service: No Current occupational status: employed 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 CT of the abdomen pelvis was pending. Lab work: Hemoglobin is actually up from previous at 13. So no significant anemia from GI bleeding. BUN and creatinine are stable at 26 and 0.9. His BUN is a little elevated today but ranges from about 15-26 in the past. Family was concerned about his pCO2. Today his bicarb is 26 which would indicate that his pCO2 is not elevated as there is no compensated levels of the bicarb. CT of the abdomen pelvis: No acute abnormalities. He has multiple colonic diverticuli without diverticulitis. Nonobstructive left renal stone. Chest x-ray: No acute process. No infiltrate. No pneumothorax. This was reviewed and interpreted by myself the ER physician. Assessment and plan: Hematochezia - Discharged home - Discussed plan with patient. Answered any questions. - Evaluation and treatment of this problem were appropriate in the emergency setting. Lab Data 05/26/24 16:49 05/26/24 16:49 Radiology Impressions Abdomen/Pelvis CT 05/26/24 17:04 IMPRESSION: 1. No clear-cut acute abdominopelvic abnormality. 2. Multiple sigmoid and other scattered colonic diverticuli without clear-cut inflammatory change. 3. Nonobstructive left renal stone. 4. 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 Other chronic findings detailed above. COMMENTS: Consistent with the [employer]'s Incidental Findings Committee white paper (J Am Navjot Radiol 2018): Any incidental renal lesion less than 1 cm or classified as too small to characterize, or any incidental cystic renal lesion characterized as simple-appearing, is likely benign. No follow-up imaging is recommended for these lesions per consensus recommendations based on imaging criteria. Chest X-Ray 05/26/24 17:04 IMPRESSION: Unchanged chest x-ray. No definite acute findings. Laboratory Results WBC 10.12 10^3/uL (3.29-11.43) 05/26/24 16:49 RBC 4.32 10^6/uL (3.85-5.65) 05/26/24 16:49 Hgb 13.00 g/dL (11.27-16.99) 05/26/24 16:49 Hct 42.1 % (37-53) 05/26/24 16:49 MCV 97.5 fl (82-101) 05/26/24 16:49 MCH 30.1 pg (27-33) 05/26/24 16:49 MCHC 30.9 g/dL (30-55) 05/26/24 16:49 RDW 13.2 % (12.1-15.1) 05/26/24 16:49 Plt Count 259 10^3/cmm (157-399) 05/26/24 16:49 MPV 9.3 fL (7.4-10.4) 05/26/24 16:49 Neut % (Auto) 74.7 % 05/26/24 16:49 Lymph % (Auto) 16.0 % 05/26/24 16:49 Pepin % (Auto) 8.0 % 05/26/24 16:49 Eos % (Auto) 0.0 % 05/26/24 16:49 Baso % (Auto) 0.2 % 05/26/24 16:49 Neut # (Auto) 7.56 10^3/uL (1.8-7.7) 05/26/24 16:49 Lymph # (Auto) 1.6 10^3/uL (0.8-4.8) 05/26/24 16:49 Pepin # (Auto) 0.8 10^3/uL (0.2-0.9) 05/26/24 16:49 Eos # (Auto) 0.0 10^3/uL (0.0-0.8) 05/26/24 16:49 Baso # (Auto) 0.0 10^3/uL (0.0-0.1) 05/26/24 16:49 Nucleated RBC % (auto) 0 % 05/26/24 16:49 Nucleated RBCs # 0.0 /100WBC 05/26/24 16:49 PT 12.30 SECONDS (12.1-14.9) 05/26/24 16:49 INR 0.89 (0.8-1.2) 05/26/24 16:49 Sodium 138 mmol/L (136-145) 05/26/24 16:49 Potassium 4.3 mmol/L (3.5-5.1) 05/26/24 16:49 Chloride 102 mmol/L (98-107) 05/26/24 16:49 Carbon Dioxide 26 mmol/L (22-29) 05/26/24 16:49 Anion Gap 14.3 (5-19) 05/26/24 16:49 BUN 26 mg/dL (8-23) H 05/26/24 16:49 Creatinine 0.9 mg/dL (0.7-1.2) 05/26/24 16:49 GFR Calculation 83.9 mL/min (90-130) L 05/26/24 16:49 Glucose 155 mg/dL (65-115) H 05/26/24 16:49 Calculated Osmolality 294 mOsm/kg (285-295) 05/26/24 16:49 Calcium 9.4 mg/dL (8.5-10.5) 05/26/24 16:49 Total Bilirubin 0.2 mg/dL (0.15-1.2) 05/26/24 16:49 AST 11 U/L (0-40) 05/26/24 16:49 ALT 20 U/L (0-41) 05/26/24 16:49 Alkaline Phosphatase 70 U/L (40-130) 05/26/24 16:49 Total Protein 6.9 g/dL (6.6-8.7) 05/26/24 16:49 Albumin 3.8 g/dL (3.5-5.2) 05/26/24 16:49 Globulin 3.1 g/dL (1.3-4.6) 05/26/24 16:49 Lipase 30 U/L (13-60) 05/26/24 16:49 All radiology interpretation(s) finalized by discharge Discharge Plan Discharge Patient Disposition: Home Clinical Impression: Hematochezia Condition: Stable Prescriptions: No Action ranolazine 500 mg tablet extended release 12 hr 500 mg PO BID aspirin 81 mg tablet,delayed release (DR/EC) 81 mg PO DAILY Qty: 30 0RF hydrocodone-acetaminophen 5-325 mg tablet 1 tab PO Q8H PRN (Reason: Pain) bumetanide 2 mg Tablet See Rx Instructions .ROUTE .COMPLEX Rx Instructions: TAKE 2 MG BY MOUTH TWICE DAILY ON FRIDAY, FRIDAY, FRIDAY, AND FRIDAY trazodone 150 mg tablet 150 mg PO BEDTIME potassium chloride 20 mEq tablet extended release 40 meq PO BID acetazolamide 250 mg tablet See Rx Instructions .ROUTE .COMPLEX Rx Instructions: TAKE 1 TABLET BY MOUTH TWICE DAILY ON FRIDAY, FRIDAY AND FRIDAY. sennosides-docusate sodium 8.6-50 mg Tablet 1 tab-cap PO DAILY PRN (Reason: Constipation) spironolactone 25 mg tablet 25 mg PO DAILY prednisone 10 mg tablet See Taper PO DIRECTED Qty: 42 0RF Taper: predniSONE 60-10 60 mg Daily for 2 Days and 0 Hour 50 mg Daily for 2 Days and 0 Hour 40 mg Daily for 2 Days and 0 Hour 30 mg Daily for 2 Days and 0 Hour 20 mg Daily for 2 Days and 0 Hour 10 mg Daily for 2 Days and 0 Hour Rx Instructions: see taper instructions Discharge Orders: Discharge ED (Routine); Ordered 05/26/24 Ordered By: Sravani Franco Referrals: Saji York [Primary Care Provider] - Discharge Diet: Usual diet Discharge Activity: Increase activity as tolerated Patient Instructions: Opioid Safety, Pain Management Activity Restrictions/Additional Instructions: Thank you for choosing [facility] for your healthcare needs today. Please realize this is an emergency room and that we are providing you with a medical screening exam and this may not be complete and all inclusive of all the testing and or work up that you may need to determine your ailment or severity of your illness. You have been screened and evaluated and felt safe for discharge. Health conditions do change or evolve sometimes and as such it is important that you follow up with your Primary Doctor to be re checked, 3-5 days is a general good time frame for follow up. You are always welcome to return to the ED for re assessment if your symptoms are worsening or you have new concerns Coding Level of Care Code ED Wares Sorter for [facility]
[2024-05-26 17:19] LABS: INR 0.89 (0.8-1.2)
[2024-05-26 17:59] LABS: Alanine Aminotransferase 20 U/L (0-41); Albumin Level 3.8 g/dL (3.5-5.2); Alkaline Phosphatase 70 U/L (40-130); Anion Gap 14.3 (5-19); Aspartate Amino Transferase 11 U/L (0-40); Blood Urea Nitrogen 26 mg/dL (8-23); Calcium 9.4 mg/dL (8.5-10.5); Carbon Dioxide 26 mmol/L (22-29); Chloride 102 mmol/L (98-107); Creatinine Clr Calc Pharmacy 80.7084; Globulin 3.1 g/dL (1.3-4.6); Glomerular Filtration Rate 83.9 mL/min (90-130); Glucose 155 mg/dL (65-115); Lipase 30 U/L (13-60); Osmolality Calculated 294 mOsm/kg (285-295); Potassium 4.3 mmol/L (3.5-5.1); Sodium 138 mmol/L (136-145); Total Bilirubin 0.2 mg/dL (0.15-1.2); Total Protein 6.9 g/dL (6.6-8.7)
[2024-05-26] MEDS: sodium chloride 0.9% 1,000 ML 999 ML IV (18:13)
[2024-05-26] MEDS: ondansetron 2 mg/ML SDV 2 mL 4 MG IVP (18:13)
[2024-05-26] MEDS: iohexol 350 mg/mL 500 mL Btl (per mL) IV (18:29)
[2024-05-26 18:35] VITALS: BP 111/60; PULSE 86; O2SAT 92
[2024-05-26 19:34] VITALS: BP 115/71; PULSE 78; RESP 18; O2SAT 98
== END 2024-05-26 19:35 | disposition home or self-care (01) ==
PROVIDERS: Emergency Medicine; Family Medicine; Emergency Provider Emergency Medicine; PCP Family Medicine
DX: K92.1 Melena (principal)
CPT/HCPCS: 36415; 71045; 74177; 80053; 83690; 85025; 85610; 93005; 96374; 99285; J2405; J7030; Q9967

== ENCOUNTER 2025-01-26 15:07 | Emergency (ER) | payer MEDICARE, MEDICAID, SELFPAY ==
--- NOTE | 2025-01-26 15:09 | ECG_ITS ---
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 Measurements Intervals [place] Rate: 78 P: 36 WA: 148 QRS: 35 QRSD: 110 T: 50 QT: 403 QTc: 460 Interpretive Statements SINUS RHYTHM INCOMPLETE RIGHT BUNDLE BRANCH BLOCK [90+ ms QRS DURATION, TERMINAL R IN V1/V2, 40+ ms S IN I/aVL/V4/V5/V6] Compared to ECG 05/26/2024 17:16:37 ST (T wave) deviation no longer present Electronically Signed On 01-28-2025 19:10:20 CDT by Darryl Guerra M.D. [email or web address]
--- NOTE | 2025-01-26 15:10 | XR_ITS ---
WS: [id number] Portable AP upright chest, 01/26/2025 Clinical Data: sob Comparison: Portable chest, 05/26/2024 Findings: No nodules, masses or effusions are seen. The heart is normal. The pulmonary vascularity is not increased. No pneumonia or pneumothorax is seen. There is a severe dextroscoliosis of the thoracic spine. There is a long hetal extending from the cervical spine into the lumbar spine attempting to correct the scoliosis. There are upper rib deformities of the right first through fifth ribs. There are surgical clips in the left upper quadrant. XR/XR chest 1V portable [id number] Impression: 1. Negative for acute cardiopulmonary disease. 2. No change in severe dextroscoliosis of the thoracic spine.
[2025-01-26 15:24] VITALS: BP 106/57; PULSE 83; RESP 18; TEMP 36.4; O2SAT 98
--- NOTE | 2025-01-26 16:24 | ED_ITS ---
HPI - SOB/Dyspnea 2 General: Chief Complaint: Shortness of Breath/Dyspnea Stated Complaint: SOB Time Seen by Provider: 01/26/25 16:14 Source: patient and family Mode of arrival: wheelchair Limitations: no limitations History of Present Illness: HPI Narrative: Patient is a 69-year-old male with past medical history of chronic hypercapnic respiratory failure, restrictive lung disease secondary to kyphoscoliosis, congestive heart failure, and COPD who presents the emergency department for abdominal bloating and peripheral edema that has been increasing over the past couple of years. Patient states he thought he was going out to eat with his today, but she tricked him and brought him to the ED due to his worsening shortness of breath and swelling recently. He is chronically on 2 L of oxygen, has not required more oxygen lately but she notes that he has seemed to be in more respiratory distress. Cannot lie flat ever secondary to orthopnea. No chest pain and patient has no complaints at this time. concerned that he is continually retaining fluid. He is on acetazolamide, spironolactone, and bumetanide for fluid control. He also takes potassium daily. 98% SpO2 on 2 L at this time. MD elicited complaint: shortness of breath Pertinent past history: COPD and congestive heart failure Onset (ago): year(s) Timing: constant Severity: similar to previous episodes Exacerbating factors: lying flat and exertion Relieving factors: oxygen Known history of: COPD and congestive heart failure Associated symptoms: Reports orthopnea; Deny abdominal pain, chest pain, fever(s), lightheadedness, nausea, palpitations or vomiting Treatment prior to arrival: oxygen and diuretics Related Data Home Medications ?Medication ?Instructions ?Recorded ?Confirmed ranolazine 500 mg tablet,extended 500 mg PO BID 05/07/24 release,12 hr potassium chloride 20 mEq 40 meq PO BID 07/10/2205/07 tablet,extended release bumetanide 2 mg tablet See Rx Instructions .Route . COMPLEX 06/04/23 05/07/24 hydrocodone 5 mg-acetaminophen 325 1 tab PO Q8H PRN Pa in 06/04/23 05/07/24 mg tablet trazodone 150 mg tablet 150 mg PO BEDTIME 06/26/23 0 05/07/24 acetazolamide 250 mg tablet See Rx Instructions .Route .COMPLEX 11/17/23 05/07/24 sennosides 8.6 mg-docusate sodium 1 tab-cap PO DAILY P RN Constipation 03/19/24 05/07/24 50 mg tablet spironolactone 25 mg tablet 25 mg PO DAILY 03/19/24 Previous Rx's ?Medication ?Instructions ?Recorded aspirin 81 mg tablet,delayed 81 mg PO DAILY #30 tabs 0 06/02/21 release prednisone 10 mg tablet See Taper PO DIRECTED #42 tabs 03/21/24 Allergies Allergy/AdvReac Type Severity Reaction Status Date / Time codeine Allergy ALGY-Rash Verified 05/26/24 16:37 Review of Systems 2 General: Reports: 10 or more systems reviewed and unremarkable except in HPI and below Const: Denies: fever(s), chills or fatigue Eyes: Denies: change in vision ENMT: Denies: throat pain, ear or mastoid pain or nasal discharge Card: Reports: swelling of feet/ankles and orthopnea; Denies: chest pain, palpitations or lightheadedness Resp: Reports: dyspnea; Denies: productive cough or wheezing GI: Reports: bloating; Denies: abdominal pain, nausea, vomiting, diarrhea or constipation : Denies: flank pain, difficulty urinating, dysuria or urinary frequency Musc: Denies: neck pain, back pain or joint pain Skin/Breast: Denies: rash Neuro: Denies: headache(s), numbness in extremities or weakness in extremities PFSH ED 2 PFSH: Medical History COVID-19 Acute kidney injury superimposed on chronic kidney disease CELESTE (obstructive sleep apnea) Obesity Chronic hypercapnic respiratory failure Restrictive lung disease due to kyphoscoliosis Congestive heart failure Tobacco chew use Fixation hardware in spine Acquired arm deformity GERD (gastroesophageal reflux disease) Kyphoscoliosis Hyperglycemia Scoliosis COPD (chronic obstructive pulmonary disease) Surgical History History of [place] fundoplication History of appendectomy H/O arthroscopy of shoulder Hx of cholecystectomy Family History Father Cancer Social History Smoking and tobacco/nicotine status: former use of tobacco/nicotine Quit status (tobacco/nicotine): has quit using Year quit tobacco: 2010 Former quit date comment: 2ppd x 10 years Second hand smoke exposure: No Alcohol intake: never Substance/Drug Use: never Lives independently: Yes Household members: spouse Housing: House Marital status: service: No Current occupational status: employed 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 Pets and animals: Yes Do you think of yourself as: Straight/Heterosexual Current gender identity: Male Physical Exam 2 Const: COMMON NORMALS: patient oriented x3, no limitations and alert G ENERAL APPEARANCE: cooperative NUTRITIONAL APPEARANCE: obese morbidly obese ORIENTATION/CONSCIOUSNESS: Yes awake HENMT: COMMON NORMALS: normocephalic, atraumatic and moist oral mucous membranes HEAD & SCALP: normocephalic and atraumatic Eye: COMMON NORMALS: EOMs intact bilaterally and conjunctivae normal C ONJUNCTIVA: Yes conjunctivae normal Neck/C-Spine: COMMON NORMALS: full ROM and no JVD Resp: COMMON NORMALS: normal respiratory effort, No retractions and No use of accessory muscles AUSCULTATION: crackles Laterality: anterior and no wheezes Cardio: COMMON NORMALS: no JVD, regular rate, regular rhythm, No gallops present (Cardio), No murmurs present (Cardio), No rub (Cardio) and Peripheral pulses 2+ throughout RATE: regular rate RHYTHM: regular rhythm P ERIPHERAL PULSES: Peripheral pulses 2+ throughout GI: COMMON NORMALS: Soft to palpation and non-tender INSPECTION: Yes abdominal distension and Yes scar PALPATION: Yes Soft to palpation Back/Pelvis: OTHER: Chronic kyphoscoliosis Extremity: COMMON NORMALS: full ROM NARRATIVE EXTREMITY EXAM: 3+ pitting edema bilaterally up to the k nee Neuro: COMMON NORMALS: patient oriented x3, moves all extremities, no focal motor deficits and no sensory deficits noted SENSORIUM/ORIENTATION: Yes alert Skin: NARRATIVE SKIN EXAM: Chronic venous stasis changes to bilateral lower extremities Course 2 Vital Signs: Vital signs: Vital Signs Temperature 97.5 F L 01/26/25 15:24 Pulse Rate 81 01/26/25 19:38 Respiratory Rate 20 H 01/26/25 18:24 Blood Pressure 105/69 01/26/25 19:38 Pulse Oximetry 98 01/26/25 19:38 Oxygen Delivery Me thod Nasal Cannula 01/26/25 19:38 Oxygen Flow Rate 2 01/26/25 19:38 MDM - SOB/Dyspnea Medical Decision Making This patient was brought in for worsening swelling that has been going on for 2 years, per spouse. Patient had no complaints. He does have a history of CHF and is on acetazolamide, Bumex, and spironolactone. Also takes potassium daily. Did seem fluid overloaded with peripheral edema as well as some abdominal distention, his vitals have been within normal limits. His BNP was unremarkable, EKG reviewed with physician unremarkable, and chest x-ray negative for any acute process. Potassium was found to be 2.5 initially, he was given 80 p.o. potassium and recheck sometime later found to be 2.8. I spoke with hospitalist, Dr. Nation, who recommends holding the diuretics and having his potassium rechecked in a few days with primary care. Also discussed this case with Dr. Stewart here in the ED. Will have the patient discharged on his potassium and have him follow-up closely with primary care for recheck. Discussed with him return precautions of which he and family verbalized understanding. Discharge at this time. Lab Data 01/26/25 16:25 01/26/25 18:59 Labs/Radiology: Radiology Impressions Chest X-Ray 01/26/25 15:10 Impression: 1. Negative for acute cardiopulmonary disease. 2. No change in severe dextroscoliosis of the thoracic spine. Laboratory Results WBC 9.22 10^3/uL (3.29-11.43) 01/26/25 16: RBC 4.29 10^6/uL (3.85-5.65) 01/26/25 16: Hgb 12.70 g/dL (11.27-16.99) 01/26/25 16: Hct 40.9 % (37-53) 01/26/25 16: MCV 95.3 fl (82-101) 01/26/25 16: MCH 29.6 pg (27-33) 01/26/25 16: MCHC 31.1 g/dL (30-55) 01/26/25 16: RDW 13.7 % (12.1-15.1) 01/26/25 16: Plt Count 285 10^3/cmm (157-399) 01/26/25 16:25 MPV 9.6 fL (7.4-10.4) 01/26/25 16:25 Neut % (Auto) 68.1 % 01/26/25 16:25 Lymph % (Auto) 20.2 % 01/26/25 16:25 [place] % (Auto) 9.7 % 01/26/25 16:25 Eos % (Auto) 1.0 % 01/26/25 16: Baso % (Auto) 0.5 % 01/26/25 16:25 Neut # (Auto) 6.28 10^3/uL (1.8-7.7) 01/26/25 16: Lymph # (Auto) 1.9 10^3/uL (0.8-4.8) 01/26/25 16: [place] # (Auto) 0.9 10^3/uL (0.2-0.9) 01/26/25 16: Eos # (Auto) 0.1 10^3/uL (0.0-0.8) 01/26/25 16: Baso # (Auto) 0.1 10^3/uL (0.0-0.1) 01/26/25 16: Nucleated RBC % (auto) 0 % 01/26/25: Nucleated RBCs # 0.0 /100WBC 01/26/25 16:25 Sodium 133 mmol/L (136-145) L 01/26/25 16:25 Potassium 2.8 mmol/L (3.5-5.1) L* 01/26/25 18:59 Chloride 87 mmol/L (98-107) L 01/26/25 16:25 Carbon Dioxide 36 mmol/L (22-29) H 01/26/25 16:25 Anion Gap 12.5 (5-19) 01/26/25 16:25 BUN 20 mg/dL (8-23) 01/26/25 16:25 Creatinine 1.1 mg/dL (0.7-1.2) 01/26/25 16:25 GFR Calculation 66.6 mL/min (90-130) L 01/26/25 16:25 Glucose 210 mg/dL (65-115) H 01/26/25 16:25 Calculated Osmolality 285 mOsm/kg (285-295) 01/26/25 16:25 Calcium 9.4 mg/dL (8.5-10.5) 01/26/25 16:25 Magnesium 2.1 mg/dL (1.7-2.3) 01/26/25 16:25 Total Bilirubin 0.3 mg/dL (0.15-1.2) 01/26/25 16:25 AST 36 U/L (0-40) 01/26/25 16:25 ALT 39 U/L (0-41) 01/26/25 16:25 Alkaline Phosphatase 88 U/L (40-130) 01/26/25 16:25 NT-Pro-B Natriuret Pep 98 pg/mL (0-125) 01/26/25 16:25 Total Protein 7.2 g/dL (6.6-8.7) 01/26/25 16:25 Albumin 3.8 g/dL (3.5-5.2) 01/26/25 16:25 Globulin 3.4 g/dL (1.3-4.6) 01/26/25 16:25 All radiology interpretation(s) finalized by discharge Discharge Plan Discharge Patient Disposition: Home Clinical Impression: Hypokalemia Congestive heart failure Qualifiers: Heart failure type: diastolic Heart failure chronicity: chronic Qualified Code(s): I50.32 - Chronic diastolic (congestive) heart failure Condition: Stable Prescriptions: No Action ranolazine 500 mg tablet extended release 12 hr 500 mg PO BID aspirin 81 mg tablet,delayed release (DR/EC) 81 mg PO DAILY Qty: 30 0RF hydrocodone-acetaminophen 5-325 mg tablet 1 tab PO Q8H PRN (Reason: Pain) bumetanide 2 mg Tablet See Rx Instructions .ROUTE .COMPLEX Rx Instructions: TAKE 2 MG BY MOUTH TWICE DAILY ON FRIDAY, FRIDAY, FRIDAY, AND FRIDAY trazodone 150 mg tablet 150 mg PO BEDTIME potassium chloride 20 mEq tablet extended release 40 meq PO BID acetazolamide 250 mg tablet See Rx Instructions .ROUTE .COMPLEX Rx Instructions: TAKE 1 TABLET BY MOUTH TWICE DAILY ON FRIDAY, FRIDAY AND FRIDAY. sennosides-docusate sodium 8.6-50 mg Tablet 1 tab-cap PO DAILY PRN (Reason: Constipation) spironolactone 25 mg tablet 25 mg PO DAILY prednisone 10 mg tablet See Taper PO DIRECTED Qty: 42 0RF Taper: predniSONE 60-10 60 mg Daily for 2 Days and 0 Hour 50 mg Daily for 2 Days and 0 Hour 40 mg Daily for 2 Days and 0 Hour 30 mg Daily for 2 Days and 0 Hour 20 mg Daily for 2 Days and 0 Hour 10 mg Daily for 2 Days and 0 Hour Rx Instructions: see taper instructions Discharge Orders: Discharge ED (Routine); Ordered 01/26/25 Ordered By: Edouard Sen Referrals: Saji York [Primary Care Provider] - Patient Instructions: Hypokalemia (ED) Activity Restrictions/Additional Instructions: Double your potassium dose for the next 4 to 5 days prior to following up with primary care. Please follow-up promptly with primary care to discuss your medications and recent ED visit. With any worsening shortness of breath, chest pain, or any other concerns that you have please return immediately to the ED. Continue taking your other medications as prescribed. Print Language: Libyan Coding Level of Care Code ED Temperature Inspector for [facility]
[2025-01-26 16:25] VITALS: PULSE 82; RESP 16; O2SAT 92
[2025-01-26 16:43] LABS: Basophils # 0.1 10^3/uL (0.0-0.1); Basophils % 0.5 %; Eosinophils # 0.1 10^3/uL (0.0-0.8); Hematocrit 40.9 % (37-53); Lymphocytes # 1.9 10^3/uL (0.8-4.8); Lymphocytes % 20.2 %; Mean Corpuscular HGB Conc 31.1 g/dL (30-55); Mean Corpuscular Hemoglobin 29.6 pg (27-33); Mean Corpuscular Volume 95.3 fl (82-101); Mean Platelet Volume 9.6 fL (7.4-10.4); Monocytes # 0.9 10^3/uL (0.2-0.9); Monocytes % 9.7 %; Neutrophils # 6.28 10^3/uL (1.8-7.7); Neutrophils % 68.1 %; Nucleated Red Blood Cells % 0 %; Platelet Count 285 10^3/cmm (157-399); Red Blood Count 4.29 10^6/uL (3.85-5.65); Red Cell Distribution Width 13.7 % (12.1-15.1); White Blood Count 9.22 10^3/uL (3.29-11.43)
[2025-01-26] MEDS: FUROsemide 10 mg/mL SDV 10mL 60 MG IVP (17:02)
[2025-01-26 17:15] LABS: Slide Review Slide Review Perform
[2025-01-26 17:21] LABS: Alanine Aminotransferase 39 U/L (0-41); Albumin Level 3.8 g/dL (3.5-5.2); Alkaline Phosphatase 88 U/L (40-130); Anion Gap 12.5 (5-19); Aspartate Amino Transferase 36 U/L (0-40); Blood Urea Nitrogen 20 mg/dL (8-23); Calcium 9.4 mg/dL (8.5-10.5); Carbon Dioxide 36 mmol/L (22-29); Chloride 87 mmol/L (98-107); Creatinine Clr Calc Pharmacy 66.5291; Globulin 3.4 g/dL (1.3-4.6); Glomerular Filtration Rate 66.6 mL/min (90-130); Glucose 210 mg/dL (65-115); NT Pro B Type Natriuretic Pept 98 pg/mL (0-125); Osmolality Calculated 285 mOsm/kg (285-295); Sodium 133 mmol/L (136-145); Total Bilirubin 0.3 mg/dL (0.15-1.2); Total Protein 7.2 g/dL (6.6-8.7)
[2025-01-26 17:25] LABS: Potassium 2.5 mmol/L (3.5-5.1)
[2025-01-26] MEDS: potassium chloride ER 20 mEq Tablet 80 MEQ PO (17:35)
[2025-01-26 17:47] VITALS: BP 115/62; PULSE 83; RESP 16; O2SAT 97
[2025-01-26 18:24] VITALS: BP 99/67; PULSE 85; RESP 20; O2SAT 96
[2025-01-26 18:36] LABS: Magnesium 2.1 mg/dL (1.7-2.3)
[2025-01-26 19:38] VITALS: BP 105/69; PULSE 81; O2SAT 98
[2025-01-26 19:44] LABS: Potassium 2.8 mmol/L (3.5-5.1)
== END 2025-01-26 20:21 | disposition home or self-care (01) ==
PROVIDERS: Emergency Medicine; Emergency Provider Physician Assistant; PCP Family Medicine
DX: E87.6 Hypokalemia (principal); J44.9 Chronic obstructive pulmonary disease, unspecified; Z87.891 Personal history of nicotine dependence; I50.32 Chronic diastolic (congestive) heart failure; Z79.82 Long term (current) use of aspirin
CPT/HCPCS: 36415; 71045; 80053; 83735; 83880; 84132; 85025; 93005; 96374; 99285; J1940

== ENCOUNTER 2025-03-31 06:28 | Inpatient (IN) | payer MEDICARE, MEDICAID, SELFPAY ==
[2025-03-31] VITALS (52 sets, daily range): BP systolic 100–131; BP diastolic 58–79; PULSE 62–98; RESP 12–25; TEMP 36.6–37; O2SAT 92–100; BMI 42.5
--- NOTE | 2025-03-31 06:35 | ECG_ITS ---
[facility] Test Date: 2025-03-31 Pat Name: Sukumar Bangura Department: Room: Gender: Male Manager Recruiting: : 1955 Requested By: Venkatesh Prakash Order Number: [id number] Reading MD: TIM BAEZA Measurements Intervals [place] Rate: 88 P: 73 [place]: 153 QRS: 41 QRSD: 100 T: 22 QT: 360 QTc: 437 Interpretive Statements SINUS RHYTHM LOW QRS VOLTAGE IN PRECORDIAL LEADS [QRS DEFLECTION < 1.0 mV IN CHEST LEADS] INCOMPLETE RIGHT BUNDLE BRANCH BLOCK [90+ ms QRS DURATION, TERMINAL R IN V1/V2, 40+ ms S IN I/aVL/V4/V5/V6] Compared to ECG 01/26/2025 15:30:56 Low QRS voltage now present Electronically Signed On 03-31-2025 23:30:17 CDT by TIM BAEZA [id number] [id number]
--- NOTE | 2025-03-31 06:42 | XRR_ITS ---
PROCEDURE INFORMATION: Exam: XR Chest Exam date and time: 03/31/2025 6:58 AM Age: 69 years old Clinical indication: Dyspnea, unstable on his feet, slurred words, and acting like he's drunk. all symptoms ongoing since Friday. TECHNIQUE: Imaging protocol: Radiologic exam of the chest. Views: 1 view. COMPARISON: CR XR chest 1V portable [id number] 01/26/2025 3:30 PM FINDINGS: Lungs: Unremarkable. No consolidation. Pleural spaces: Unremarkable. No pleural effusion. No pneumothorax. Heart/Mediastinum: Unremarkable. No cardiomegaly. Bones/joints: Dextroscoliosis of the thoracic spine with spinal fixation hardware in place. Intraperitoneal space: Surgical clips in the upper abdomen. XR/XR chest 1V portable [id number] IMPRESSION: No acute findings.
[2025-03-31] MEDS: aspirin 81 mg Chew Tablet 324 MG PO (06:50)
--- NOTE | 2025-03-31 06:51 | W.ED.SOB ---
HPI - SOB/Dyspnea General: Chief Complaint: Shortness of Breath/Dyspnea Stated Complaint: trouble breathing Time Seen by Provider: 03/31/25 06:41 History of Present Illness: HPI Narrative: 69-year-old male presents emergency room with his . His has been concerned that he seems weak and confused and short of breath. He is chronically on 2 L by nasal cannula and is maintaining his sats on his usual home oxygen. He denies chest pain. No fever sweats chills no abdominal pain. He does complain of being tired all the time. This been going on for 3 to 4 days per the . She says at times he slurs his words and behaves almost as if he has been drinking Associated symptoms: Deny abdominal pain, chest pain or fever(s) Related Data Home Medications ?Medication ?Instructions ?Recorded ?Confirmed ranolazine 500 mg tablet,extended 500 mg PO BID 02/12/22 03/31/25 release,12 hr potassium chloride 20 mEq 40 meq PO BID 07/10/22 03/31/25 tablet,extended release bumetanide 2 mg tablet See Rx Instructions .Route .COMPLEX 06/04/23 03/31/25 trazodone 150 mg tablet 150 mg PO BEDTIME 06/26/23 03/31/25 acetazolamide 250 mg tablet See Rx Instructions .Route .COMPLEX 11/17/23 03/31/25 sennosides 8.6 mg-docusate sodium 1 tab-cap PO DAILY PRN Constipation 03/19/24 03/31/25 50 mg tablet spironolactone 25 mg tablet 25 mg PO DAILY 03/19/24 03/31/25 semaglutide 0.25 mg or 0.5 mg (2 0.25 mg SUBCUT Q7D 03/31/25 03/31/25 mg/3 mL) subcutaneous pen injector (Ozempic) Previous Rx's ?Medication ?Instructions ?Recorded aspirin 81 mg tablet,delayed 81 mg PO DAILY #30 tabs 06/02/21 release Allergies Allergy/AdvReac Type Severity Reaction Status Date / Time codeine Allergy ALGY-Rash Verified 05/26/24 16:37 Review of Systems Const: Denies: fever(s) or chills Card: Denies: chest pain Resp: Denies: dyspnea GI: Denies: abdominal pain : Denies: dysuria, urinary frequency or urinary urgency Musc: Denies: neck pain or back pain Skin/Breast: Denies: rash PFSH ED PFSH: Medical History COVID-19 Acute kidney injury superimposed on chronic kidney disease CELESTE (obstructive sleep apnea) Obesity Chronic hypercapnic respiratory failure Restrictive lung disease due to kyphoscoliosis Congestive heart failure Tobacco chew use Fixation hardware in spine Acquired arm deformity GERD (gastroesophageal reflux disease) Kyphoscoliosis Hyperglycemia Scoliosis COPD (chronic obstructive pulmonary disease) Surgical History History of [place] fundoplication History of appendectomy H/O arthroscopy of shoulder Hx of cholecystectomy Family History Father Cancer Social History Smoking and tobacco/nicotine status: former use of tobacco/nicotine Quit status (tobacco/nicotine): has quit using Year quit tobacco: 2010 Former quit date comment: 2ppd x 10 years Second hand smoke exposure: No Alcohol intake: never Substance/Drug Use: never Lives independently: Yes Household members: spouse Housing: House Marital status: service: No Current occupational status: employed 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 Pets and animals: Yes Do you think of yourself as: Straight/Heterosexual Current gender identity: Male Physical Exam Const: GENERAL APPEARANCE: cooperative ORIENTATION/CONSCIOUSNESS: Yes awake HENMT: COMMON NORMALS: normocephalic, atraumatic and hearing grossly normal bilaterally HEAD & SCALP: normocephalic and atraumatic Resp: COMMON NORMALS: normal respiratory effort, No retractions, No use of accessory muscles and clear to auscultation bilaterally AUSCULTATION: clear to auscultation bilaterally Cardio: COMMON NORMALS: regular rate, regular rhythm and No murmurs present (Cardio) RATE: regular rate RHYTHM: regular rhythm GI: COMMON NORMALS: Soft to palpation and No hepatosplenomegaly present AUSCULTATION: Yes normoactive bowel sounds PALPATION: Yes Soft to palpation, No Tenderness to palpation present (GI), No Guarding due to palpation present (GI) and Yes No hepatosplenomegaly present Extremity: COMMON NORMALS: normal to inspection, capillary refill normal, no clubbing, cyanosis or edema, no calf tenderness and no pedal edema Skin: COMMON NORMALS: no rashes or lesions noted GENERAL SKIN EXAM: no rashes or lesions noted Course Vital Signs: Vital signs: Vital Signs Temperature 98.6 F 03/31/25 06:30 Pulse Rate 74 03/31/25 10:07 Respiratory Rate 18 03/31/25 09:11 Blood Pressure 123/61 03/31/25 10:07 Pulse Oximetry 96 03/31/25 10:07 Oxygen Delivery Me thod BiPAP 03/31/25 10:07 Oxygen Flow Rate 2 03/31/25 06:53 Fraction of Inspir ed Oxygen 28 03/31/25 09:23 MDM - SOB/Dyspnea Medical Decision Making Acute hypercapnic respiratory failure. Chest x-ray did not show any acute infiltrates. No signs of decompensated heart failure patient started on BiPAP he had slight improvement after the first hour discussed with hospitalist will admit orders written for ICU. Medical Records I reviewed the patient's medical records. Lab Data I reviewed the patient's lab results. 03/31/25 07:29 03/31/25 07:29 Labs/Radiology: Radiology Impressions Chest X-Ray 03/31/25 06:42 IMPRESSION: No acute findings. Head CT 03/31/25 07:03 IMPRESSION: No acute intracranial abnormality. Laboratory Results WBC 6.63 10^3/uL (3.29-11.43) 03/31/25 07:29 RBC 4.07 10^6/uL (3.85-5.65) 03/31/25 07:29 Hgb 11.60 g/dL (11.27-16.99) 03/31/25 07:29 Hct 39.4 % (37-53) 03/31/25 07:29 MCV 96.8 fl (82-101) 03/31/25 07: MCH 28.5 pg (27-33) 03/31/25 07: MCHC 29.4 g/dL (30-55) L 03/31/25 07:29 RDW 13.9 % (12.1-15.1) 03/31/25 07:29 Plt Count 244 10^3/cmm (157-399) 03/31/25 07:29 MPV 9.2 fL (7.4-10.4) 03/31/25 07: Neut % (Auto) 56.5 % 03/31/25 07: Lymph % (Auto) 24.0 % 03/31/25 07: [place] % (Auto) 15.7 % 03/31/25 07: Eos % (Auto) 1.8 % 03/31/25 07: Baso % (Auto) 0.8 % 03/31/25 07: Neut # (Auto) 3.75 10^3/uL (1.8-7.7) 03/31/25 07: Lymph # (Auto) 1.6 10^3/uL (0.8-4.8) 03/31/25 07: [place] # (Auto) 1.0 10^3/uL (0.2-0.9) H 03/31/25 07: Eos # (Auto) 0.1 10^3/uL (0.0-0.8) 03/31/25 07: Baso # (Auto) 0.1 10^3/uL (0.0-0.1) 03/31/25 07: Nucleated RBC % (auto) 0 % 03/31/25 07: Nucleated RBCs # 0.0 /100WBC 03/31/25 07: Specimen Type Arterial 03/31/25 09:09 Sample Site Radial, right 03/31/25 09:09 ABG pH 7.26 (7.35-7.45) L 03/31/25 09:09 ABG pCO2 61.4 mmHg (35-45) H* 03/31/25 09:09 ABG pO2 104.0 mmHg (80.0-100.0) H 03/31/25 09:09 ABG PO2/FiO2 Ratio 371 03/31/25 09:09 ABG HCO3 27.4 mmol/L (22-26) H 03/31/25 09:09 ABG O2 Saturation 98.0 03/31/25 09:09 ABG Base Excess -0.7 mmol/L (-2.0-2.0) 03/31/25 09:09 Humberto Test Pos 03/31/25 09:09 A-a O2 Gradient 2.3 mmHg (5-10) L 03/31/25 09:09 Hematocrit 35.0 % (42-52) L 03/31/25 09:09 Hgb O2 Saturation 96.4 % (95-100) 03/31/25 09:09 Carboxyhemoglobin 1.3 %THgb (0.4-20.1) 03/31/25 09:09 Methemoglobin 0.4 % (0.4-1.5) 03/31/25 09:09 Total Hemoglobin 11.4 g/dL (14-18) L 03/31/25 09:09 Sodium 139.0 mmol/L (131-143) 03/31/25 09:09 Potassium 4.4 mmol/L (3.5-5.0) 03/31/25 09:09 Glucose 174.0 mg/dL (70-115) H 03/31/25 09:09 Ionized Calcium 1.3 mmol/L (1.1-1.4) 03/31/25 09:09 O2 Delivery Device Bipap 03/31/25 09:09 O2 Liters/Min 2.0 % 03/31/25 07:05 FiO2 28.0 % 03/31/25 09:09 Software Configuration Engineer ID [place] 03/31/25 09:09 Sodium 139 mmol/L (136-145) 03/31/25 07:29 Potassium 4.4 mmol/L (3.5-5.1) 03/31/25 07:29 Chloride 102 mmol/L (98-107) 03/31/25 07:29 Carbon Dioxide 27 mmol/L (22-29) 03/31/25 07:29 Anion Gap 14.4 (5-19) 03/31/25 07:29 BUN 18 mg/dL (8-23) 03/31/25 07:29 Creatinine 1.1 mg/dL (0.7-1.2) 03/31/25 07:29 GFR Calculation 66.6 mL/min (90-130) L 03/31/25 07:29 Glucose 165 mg/dL (65-115) H 03/31/25 07:29 Calculated Osmolality 294 mOsm/kg (285-295) 03/31/25 07:29 Calcium 9.3 mg/dL (8.5-10.5) 03/31/25 07:29 Total Bilirubin 0.2 mg/dL (0.15-1.2) 03/31/25 07:29 AST 28 U/L (0-40) 03/31/25 07:29 ALT 31 U/L (0-41) 03/31/25 07:29 Alkaline Phosphatase 90 U/L (40-130) 03/31/25 07:29 Troponin T Baseline 9 ng/L (0-15) 03/31/25 07:18 Troponin T 120 Minute 8.99 ng/L (0-15) 03/31/25 09:19 Delta Troponin T -0.01 ABS# (0-10) L 03/31/25 09:19 Total Protein 6.9 g/dL (6.6-8.7) 03/31/25 07:29 Albumin 3.7 g/dL (3.5-5.2) 03/31/25 07:29 Globulin 3.2 g/dL (1.3-4.6) 03/31/25 07:29 Ethyl Alcohol < 10 mg/dL (0-10) 03/31/25 07:29 All radiology interpretation(s) finalized by discharge Discharge Plan Discharge Patient Disposition: Admitted As Inpatient Admit Provider: Shahram Perdomo Clinical Impression: Acute and chronic respiratory failure with hypercapnia, Acute exacerbation of chronic obstructive airways disease Condition: Stable Coding Level of Care Code ED Leather Stamper for [facility]
--- NOTE | 2025-03-31 07:03 | CTR_ITS ---
PROCEDURE INFORMATION: Exam: CT Head Without Contrast Exam date and time: 03/31/2025 8:01 AM Age: 69 years old Clinical indication: Altered mental status/memory loss; Additional info: AMS TECHNIQUE: Imaging protocol: Computed tomography of the head without contrast. Radiation optimization: All CT scans at this facility use at least one of these dose optimization techniques: automated exposure control; mA and/or kV adjustment per patient size (includes targeted exams where dose is matched to clinical indication); or iterative reconstruction. COMPARISON: CT cervical spin wo con* [id number] 11/04/2018 3:46 PM RADIATION DOSE METRICS: Total DLP (mGy-cm): 2186 FINDINGS: Brain: Normal. No hemorrhage. Unremarkable white matter. No mass effect. Cerebral ventricles: No ventriculomegaly. Paranasal sinuses: Moderate mucosal thickening of the posterior left ethmoid air cells. Mastoid air cells: Visualized mastoid air cells are well aerated. Bones: Unremarkable. No acute fracture. Soft tissues: Unremarkable. CT/CT head wo con* [id number] IMPRESSION: No acute intracranial abnormality.
[2025-03-31 07:16] LABS: ABG PH Result 7.24 (7.35-7.45); Arterial Blood Gas Hematocrit 36.1 % (42-52); Base Excess ABG -0.8 mmol/L (-2.0-2.0); Blood Gas Allen Test Pos; Blood Gas Operator Identificat WALCI; Blood Gas Sample Site Radial, right; Blood Gas Sample Type Arterial; Carboxyhemoglobin 1.2 %THgb (0.4-20.1); HCO3 ABG 27.8 mmol/L (22-26); HGB O2 Sat 95.6 % (95-100); Ionized Calcium Level - ABG 1.4 mmol/L (1.1-1.4); Methemoglobin 0.4 % (0.4-1.5); Oxygen Device NC; Oxygen Saturation ABG 97.2; PO2 ABG 98.7 mmHg (80.0-100.0); Potassium Level - ABG 4.1 mmol/L (3.5-5.0); Total Hemoglobin 11.8 g/dL (14-18)
[2025-03-31 07:17] LABS: ABG PCO2 64.8 mmHg (35-45)
[2025-03-31 07:34] LABS: Basophils # 0.1 10^3/uL (0.0-0.1); Basophils % 0.8 %; Eosinophils # 0.1 10^3/uL (0.0-0.8); Eosinophils % 1.8 %; Hematocrit 39.4 % (37-53); Lymphocytes # 1.6 10^3/uL (0.8-4.8); Mean Corpuscular HGB Conc 29.4 g/dL (30-55); Mean Corpuscular Hemoglobin 28.5 pg (27-33); Mean Corpuscular Volume 96.8 fl (82-101); Mean Platelet Volume 9.2 fL (7.4-10.4); Monocytes % 15.7 %; Neutrophils # 3.75 10^3/uL (1.8-7.7); Neutrophils % 56.5 %; Nucleated Red Blood Cells % 0 %; Platelet Count 244 10^3/cmm (157-399); Red Blood Count 4.07 10^6/uL (3.85-5.65); Red Cell Distribution Width 13.9 % (12.1-15.1); White Blood Count 6.63 10^3/uL (3.29-11.43)
[2025-03-31 07:49] LABS: Troponin(5th) Baseline 9 ng/L (0-15)
[2025-03-31 07:55] LABS: Alanine Aminotransferase 31 U/L (0-41); Albumin Level 3.7 g/dL (3.5-5.2); Alcohol Level < 10 mg/dL (0-10); Alkaline Phosphatase 90 U/L (40-130); Anion Gap 14.4 (5-19); Aspartate Amino Transferase 28 U/L (0-40); Blood Urea Nitrogen 18 mg/dL (8-23); Calcium 9.3 mg/dL (8.5-10.5); Carbon Dioxide 27 mmol/L (22-29); Chloride 102 mmol/L (98-107); Creatinine Clr Calc Pharmacy 65.6393; Globulin 3.2 g/dL (1.3-4.6); Glomerular Filtration Rate 66.6 mL/min (90-130); Glucose 165 mg/dL (65-115); Osmolality Calculated 294 mOsm/kg (285-295); Potassium 4.4 mmol/L (3.5-5.1); Sodium 139 mmol/L (136-145); Total Bilirubin 0.2 mg/dL (0.15-1.2); Total Protein 6.9 g/dL (6.6-8.7)
[2025-03-31] MEDS: methylPREDNISolone sod succ 125 mg/2 mL INJ IVP (08:08)
--- NOTE | 2025-03-31 08:39 | ECG_ITS ---
[facility] Test Date: 2025-03-31 Pat Name: Sukumar Bangura Department: Room: Gender: Male Bell Clerk: : 1955 Requested By: Venkatesh Prakash Order Number: [id number] Reading MD: TIM BAEZA Measurements Intervals [place] Rate: 70 P: -3 [place]: 155 QRS: 30 QRSD: 111 T: 20 QT: 422 QTc: 456 Interpretive Statements SINUS RHYTHM LOW QRS VOLTAGE IN PRECORDIAL LEADS [QRS DEFLECTION < 1.0 mV IN CHEST LEADS] INCOMPLETE RIGHT BUNDLE BRANCH BLOCK [90+ ms QRS DURATION, TERMINAL R IN V1/V2, 40+ ms S IN I/aVL/V4/V5/V6] Compared to ECG 03/31/2025 06:35:04 No significant changes Electronically Signed On 03-31-2025 23:38:46 CDT by TIM BAEZA [id number] [id number]
[2025-03-31 09:19] LABS: ABG PH Result 7.26 (7.35-7.45); Alveolar-Arterial Oxygen Gradi 2.3 mmHg (5-10); Base Excess ABG -0.7 mmol/L (-2.0-2.0); Blood Gas Allen Test Pos; Blood Gas Operator Identificat WALCI; Blood Gas Sample Site Radial, right; Blood Gas Sample Type Arterial; Carboxyhemoglobin 1.3 %THgb (0.4-20.1); HCO3 ABG 27.4 mmol/L (22-26); HGB O2 Sat 96.4 % (95-100); Ionized Calcium Level - ABG 1.3 mmol/L (1.1-1.4); Methemoglobin 0.4 % (0.4-1.5); Oxygen Device BIPAP; PO2 FiO2 Ratio Arterial Blood 371; Potassium Level - ABG 4.4 mmol/L (3.5-5.0); Total Hemoglobin 11.4 g/dL (14-18)
[2025-03-31 09:20] LABS: ABG PCO2 61.4 mmHg (35-45)
[2025-03-31] MEDS: ipratropium-albuterol 3 mL Neb INHALATION ×3 (09:24→20:54)
[2025-03-31 10:00] LABS: Troponin 5 2HR 8.99 ng/L (0-15)
[2025-03-31 10:01] LABS: Troponin 5 2HR Delta -0.01 ABS# (0-10)
--- NOTE | 2025-03-31 11:29 | PC.NURSE ---
Arrived from ER, transferred to bed with lift sheet, AO follows commands, tolorating bipap
--- NOTE | 2025-03-31 12:24 | PM.HP ---
Providers/Chief Complaint Admitting Physician: Shahram Perdomo Primary Care Provider: Saji York Chief Complaint: trouble breathing History of Present Illness Sukumar Bangura is a 69 year old male with a history of COPD and diabetes is presenting with increased shortness of breath and somnolence for about a week. The patient has been coughing frequently, producing green-tinged phlegm, but denies chest pain, pressure, nausea, vomiting, diarrhea, fever, chills, sore throat, or nasal symptoms. There is no report of blood in the stool, dark stools, or blood in the urine. The patient uses an AVAPS mask at home, both at night and during the day when at rest, and has a nebulizer with two medications mixed for breathing treatments. The patient ambulates with a walker and uses a scooter for outings. There is a history of multiple hospitalizations in the past year. The patient has been losing weight and currently weighs 225 lbs. The patient is followed by a consulting networking engineer and a signal technician. The patient is not currently smoking or drinking alcohol and quit smoking years ago. The patient reports sleeping in a recliner at home due to discomfort or shortness of breath when lying in bed. There is a history of diabetes managed with weekly Ozempic injections. The patient is currently taking several medications, including spironolactone, acetazolamide, ranolazine, trazodone, potassium, bumetanide, and omeprazole. The patient expresses a desire to go home but is advised to stay for IV steroid treatment and monitoring. The patient is agreeable to full resuscitation measures if needed. Denies rashes or recent changes in bowel movements except for occasional small stools managed with Muralex. Denies recent substance use. Review of Systems Const: Denies: fever(s), chills, body aches or malaise ENMT: Denies: throat pain Card: Reports: dyspnea on exertion and orthopnea; Denies: chest pain, edema or pre-syncope Resp: Reports: dyspnea, productive cough and change in phlegm color; Denies: hemoptysis GI: Denies: abdominal pain, nausea, vomiting, diarrhea, constipation, hematochezia or melena : Denies: flank pain, difficulty urinating, urinary frequency or hematuria Musc: Denies: back pain, joint swelling or joint redness Skin/Breast: Denies: rash or new lesions Neuro: Denies: headache(s) or confusion Medications/Allergies Home Medications ?Medication ?Instructions ?Recorded ?Confirmed ?Last Taken ?Type aspirin 81 mg tablet,delayed 81 mg PO DAILY #30 tabs 06/02/21 03/31/25 03/30/25 Rx release ranolazine 500 mg tablet,extended 500 mg PO BID 02/12/22 03/31/25 03/30/25 History release,12 hr potassium chloride 20 mEq 40 meq PO BID 07/10/22 03/31/25 03/30/25 History tablet,extended release bumetanide 2 mg tablet See Rx Instructions .Route .COMPLEX 06/04/23 03/31/25 03/30/25 History trazodone 150 mg tablet 150 mg PO BEDTIME 06/26/23 03/31/25 03/30/25 History acetazolamide 250 mg tablet See Rx Instructions .Route .COMPLEX 11/17/23 03/31/25 03/30/25 History sennosides 8.6 mg-docusate sodium 1 tab-cap PO DAILY PRN Constipation 03/19/24 03/31/25 03/30/25 History 50 mg tablet spironolactone 25 mg tablet 25 mg PO DAILY 03/19/24 03/31/25 03/30/25 History semaglutide 0.25 mg or 0.5 mg (2 0.25 mg SUBCUT Q7D 03/31/25 03/31/25 03/26/25 History mg/3 mL) subcutaneous pen injector (Ozempic) Allergies Allergy/AdvReac Type Severity Reaction Status Date / Time codeine Allergy ALGY-Rash Verified 05/26/24 16:37 PFSH Acute PFSH: Medical History (Updated 03/31/25 @ 14:38 by Shahram Perdomo MD) DM type 2 (diabetes mellitus, type 2) COVID-19 Acute kidney injury superimposed on chronic kidney disease CELESTE (obstructive sleep apnea) Obesity Chronic hypercapnic respiratory failure Restrictive lung disease due to kyphoscoliosis Congestive heart failure Tobacco chew use Fixation hardware in spine Acquired arm deformity GERD (gastroesophageal reflux disease) Kyphoscoliosis Hyperglycemia Scoliosis COPD (chronic obstructive pulmonary disease) Surgical History History of [place] fundoplication History of appendectomy H/O arthroscopy of shoulder Hx of cholecystectomy Family History Father Cancer Social History Smoking and tobacco/nicotine status: former use of tobacco/nicotine Quit status (tobacco/nicotine): has quit using Year quit tobacco: 2010 Former quit date comment: 2ppd x 10 years Second hand smoke exposure: No Alcohol intake: never Substance/Drug Use: never Lives independently: Yes Household members: spouse Housing: House Marital status: service: No Current occupational status: employed 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 Pets and animals: Yes Do you think of yourself as: Straight/Heterosexual Current gender identity: Male Vitals/I&O/Wt Last Vital Signs Temp 98.6 F 03/31/25 06:30 Pulse 76 03/31/25 11:10 Resp 18 03/31/25 09:11 BP 123/61 03/31/25 11:10 Pulse Ox 96 03/31/25 11:10 O2 Del Method BiPAP 03/31/25 11:44 O2 Flow Rate 2 03/31/25 06:53 FiO2 28 03/31/25 09:23 Weight last 48 hrs Weight 102.058 kg Physical Exam Const: COMMON NORMALS: patient oriented x3 and alert GENERAL APPEARANCE: cooperative ORIENTATION/CONSCIOUSNESS: Yes awake HENMT: COMMON NORMALS: oropharynx normal Neck/C-Spine: COMMON NORMALS: no JVD Resp: COMMON NORMALS: normal respiratory effort AUSCULTATION: diminished lung sounds Cardio: COMMON NORMALS: no JVD, regular rhythm, S1 normal heart sound present, S2 normal heart sound present and No murmurs present (Cardio) RHYTHM: regular rhythm HEART SOUNDS: S1 normal heart sound present and S2 normal heart sound present GI: COMMON NORMALS: Normal to inspection, nondistended, normoactive bowel sounds present, Soft to palpation and non-tender PALPATION: Yes Soft to palpation Extremity: COMMON NORMALS: no joint enlargement and no pedal edema Neuro: COMMON NORMALS: patient oriented x3 and moves all extremities SENSORIUM/ORIENTATION: Yes alert Skin: COMMON NORMALS: no rashes or lesions noted GENERAL SKIN EXAM: no rashes or lesions noted Data 03/31/25 07:29 03/31/25 07:29 A&P Assessment and plan (1) COPD with acute exacerbation: COPD with severe exacerbation with acute hypercapnic respiratory failure, acute encephalopathy with lethargy, most history obtained from his daughter. The patient presents with increased shortness of breath, somnolence, and hypercapnia. With dyspnea, cough productive of purulent appearing green sputum but no fever, chills, or chest pain. The patient uses AVAPS at home and nebulizer treatments. The patient has a history of multiple hospitalizations for respiratory issues. The provider suspects a COPD exacerbation with CO2 retention, likely requiring inpatient management and IV steroids. No chronic antibiotics or steroids at home. The patient is agreeable to full resuscitation measures. Reviewed vitals, CBC, ABG, CMP, troponin, chest x-ray, head CT, ER provider note, discussed with ER provider. - Continue AVAPS mask support as tolerated. - [facility], monitor for risk of hypertension, hyperglycemia, gastritis, encephalopathy. - Empiric antibiotic coverage with ceftriaxone. -Collect sputum culture. - Continue nebulizer treatments with home medications. With skeletal deformities, kyphoscoliosis, extensive spine fixation hardware, difficulty repositioning, chronic back pain, GERD, as well as need for AVAPS intermittently during the day in addition to at night, would benefit from hospital bed at home. (2) DM type 2 (diabetes mellitus, type 2): Monitor POC glucose especially with IV corticosteroid. Hold Ozempic. Sliding scale insulin. Consult carbohydrate diet. Resume Ozempic after discharge. Plan Constipation : The patient experiences occasional small bowel movements, managed with Miralax every other day as needed. No blood in stool or dark stools reported. - Continue Miralax as needed for constipation. - Monitor bowel movements during hospitalization. PDMP PDMP Reviewed: Not Reviewed Attestations Medical Necessity Statement*: Admission over 2 midnights anticipated for assessment management of severe exacerbation of COPD with hypercapnic respiratory failure, and gentleman with underlying diabetes and other colitides. Diagnoses COPD with acute exacerbation J44.1 DM type 2 (diabetes mellitus, type 2) E11.9
--- NOTE | 2025-03-31 12:42 | ECG_ITS ---
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: : [id number] Requested By: Venkatesh Prakash Order Number: [id number] Reading MD: TIM BAEZA Measurements Intervals [place] Rate: 65 P: -3 IA: 149 QRS: 40 QRSD: 113 T: 40 QT: 440 QTc: 459 Interpretive Statements SINUS RHYTHM WITH OCCASIONAL SUPRAVENTRICULAR PREMATURE COMPLEXES LOW QRS VOLTAGE IN PRECORDIAL LEADS [QRS DEFLECTION < 1.0 mV IN CHEST LEADS] INCOMPLETE RIGHT BUNDLE BRANCH BLOCK [90+ ms QRS DURATION, TERMINAL R IN V1/V2, 40+ ms S IN I/aVL/V4/V5/V6] Compared to ECG 03/31/2025 08:39:46 No significant changes Electronically Signed On 03-31-2025 23:37:26 CDT by TIM BAEZA [email or web address]
[2025-03-31] MEDS: enoxaparin 40 mg/0.4 mL Syringe SUBCUT (12:54)
[2025-03-31] MEDS: methylPREDNISolone sod succ 40 mg/mL INJ IVP ×2 (12:54→17:20)
[2025-03-31 13:36] LABS: Troponin 5 6HR 7.88 ng/L (0-15)
[2025-03-31 13:37] LABS: Troponin 5 6HR Delta -1.12 ng/L (0-12)
--- OUTSIDE RECORDS SUMMARY | 2025-03-31 15:46 | XMS_ITS | Encounter Summary ---
Author Organization [facility] Address [address] [place] [address] Care Team Providers Care Cut Out Operator Name Role Phone Saji York MD Primary Care Provider [phone] [phone] Encounter Details Date Type Department Care Team (Latest Contact Info) Description 11/13/2000 Outpatient Historical [facility] Medicine [address] [address] Chai Lindsay DO NO ADDRESS ON FILE Backache, unspecified (Primary Dx) Social History Tobacco Use Types Packs/Day Years Used Date Smoking Tobacco: Never Assessed Sex and Gender Information Value Date Recorded Sex Assigned at Not on file Legal Sex Male 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
--- OUTSIDE RECORDS SUMMARY | 2025-03-31 15:46 | XMS_ITS | Encounter Summary ---
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
--- OUTSIDE RECORDS SUMMARY | 2025-03-31 15:46 | XMS_ITS | Encounter Summary ---
Author Organization [facility] Address [address] [place] [address] Care Team Providers Care Verification Engineer Name Role Phone Saji York MD Primary Care Provider [phone] [phone] Encounter Details Date Type Department Care Team (Late st Contact Info) Description 01/11/2013 Ancillary Orders [facility] [place] [address] [place] [address] Sick Social History Tobacco Use Types Packs/Day Years Used Date Smoking Tobacco: Former Cigarettes Smokeless Tobacco: Current Chew Comments:smoked 10 yrs. 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 Gender Identity Not on file Sexual Orientation Not on file Occupation Industry Job Start Date Job End Date Not on file Not on file Not on file Not on file documented as of this encounter Plan of Treatment Not on file documented as of this encounter Procedures Procedure Name Priority Date/Time Associated Diagnosis Comments CBC WITH DIFFERENTIAL Routine 01/11/2013 8:41 PM SUPERMARKET MANAGER Sick [ICD-9-CM] TSH Routine 01/11/2013 8:41 PM SUPERMARKET MANAGER Sick [ICD-9-CM] COMPREHENSIVE METABOLIC PANEL Routine 01/11/2013 8:41 PM SUPERMARKET MANAGER Sick [ICD-9-CM] documented in this encounter Results * TSH (01/11/2013 8:41 PM SUPERMARKET MANAGER) Pathologist [facility] TSH 2.77 0.30 - 4.80 uIU/mL 01/11/2013 10:03 PM [facility] [employer] [facility] Blood specimen (specimen) 01/11/2013 8:41 PM SUPERMARKET MANAGER 01/11/2013 9:19 PM SUPERMARKET MANAGER Chai Lindsay DO CHEMISTRY ORDERABLES Final Resu lt [employer] [facility] CLIA # [id number] [address] [place] [address] * (ABNORMAL) COMPREHENSIVE METABOLIC PANEL (01/11/2013 8:41 PM SUPERMARKET MANAGER) Pathologist [facility] SODIUM 142 136 - 145 mmol/L 01/11/2013 10:03 PM [facility] [employer] [facility] [place] [place] POTASSIUM 4.1 3.5 - 5.1 mmol/L 01/11/2013 10:03 PM [facility] Reading Room - [facility] [place] CHLORIDE 102 98 - 107 mmol/L 01/11/2013 10:03 PM [facility] Reading Room - [facility] CO2 34(H) 21 - 32 mmol/L 01/11/2013 10:03 PM SUPERMARKET MANAGER Reading [facility] - [facility] CALCIUM 8.7 8.5 - 10.1 mg/dL 01/11/2013 10:03 PM SUPERMARKET MANAGER Reading Room - [facility] BUN 16 7 - 18 mg/dL 01/11/2013 10:03 PM [facility] CREATININE 1.00 0.60 - 1.30 mg/dL 01/11/2013 10:03 PM [facility] GLUCOSE 99 74 - 106 mg/dL 01/11/2013 10:03 PM SUPERMARKET MANAGER Reading Room - [facility] TOTAL PROTEIN 7.6 6.4 - 8.2 g/dL 01/11/2013 10:03 PM SUPERMARKET MANAGER Reading Room - [facility] ALBUMIN 3.8 3.4 - 5.0 g/dL 01/11/2013 10:03 PM [facility] [employer] [facility] BILIRUBIN TOTAL 0.5 0.2 - 1.0 mg/dL 01/11/2013 10:03 PM [facility] ALKALINE PHOSPHATASE 126 50 - 136 U/L 01/11/2013 10:03 PM [facility] AST 21 15 - 37 U/L 01/11/2013 10:03 PM [facility] ALT 62 30 - 65 U/L 01/11/2013 10:03 PM [facility] GFR 77 >=60 mL/min/1.7 3 sq meter 01/11/2013 10:03 PM [facility] GFR, 94 >=60 mL/min/1.7 3 sq meter 01/11/2013 10:03 PM [facility] Blood specimen (specimen) 01/11/2013 8:41 PM SUPERMARKET MANAGER 01/11/2013 9:19 PM [facility] [employer] [facility] - 01/11/2013 10:03 PM [facility] eGFR has not been validated for use in the elderly (> 70 years of age), women, patients with serious co-morbid conditions, or persons with extremes of body size or muscle mass and should also be interpreted with caution in patients with acute kidney failure, dialysis dependant patients, patients reporting exceptional dietary intake (e.g. vegetarian diet, high protein diets, creatine supplementation), and patients with severe liver disease. Based on National Kidney Disease Education Program Chai Lindsay DO CHEMISTRY ORDERABLES Final Resu lt [facility] [employer] [facility] CLIA # [id number] [address] [place] [address] * (ABNORMAL) CBC WITH DIFFERENTIAL (01/11/2013 8:41 PM SUPERMARKET MANAGER) WBC 7.8 4.2 - 9.1 K/uL 01/11/2013 9:39 PM [facility] [employer] [facility] RBC 5.59 4.63 - 6.08 M/uL 01/11/2013 9:39 PM [facility] [employer] [facility] HEMOGLOBIN 16.6 13.7 - 17.5 g/dL 01/11/2013 9:39 PM SUPERMARKET MANAGER [facility] HEMATOCRIT 51.2(H) 40.1 - 51.0 % 01/11/2013 9:39 PM SUPERMARKET MANAGER [facility] MCV 91.6 79.0 - 92.2 fL 01/11/2013 9:39 PM SUPERMARKET MANAGER [facility] MCH 29.7 25.7 - 32.2 pg 01/11/2013 9:39 PM SUPERMARKET MANAGER [facility] MCHC 32.4 32.3 - 36.5 g/dL 01/11/2013 9:39 PM SUPERMARKET MANAGER [facility] RDW 13.1 11.0 - 14.5 % 01/11/2013 9:39 PM SUPERMARKET MANAGER [facility] RDW-STDEV 43.5 37.0 - 54.0 fL 01/11/2013 9:39 PM SUPERMARKET MANAGER [facility] [place] PLATELETS 220 130 - 400 K/uL 01/11/2013 9:39 PM SUPERMARKET MANAGER [facility] [place] [place] MPV 10.1 10.0 - 14.8 fL 01/11/2013 9:39 PM SUPERMARKET MANAGER [facility] NEUTROPHILS 53 34 - 68 % 01/11/2013 9:39 PM SUPERMARKET MANAGER [facility] LYMPHOCYTES 32 22 - 53 % 01/11/2013 9:39 PM SUPERMARKET MANAGER [facility] MONOCYTES 13(H) 5 - 12 % 01/11/2013 9:39 PM SUPERMARKET MANAGER [facility] EOSINOPHILS 2 1 - 7 % 01/11/2013 9:39 PM SUPERMARKET MANAGER [facility] [place] [place] BASOPHILS 0 0 - 1 % 01/11/2013 9:39 PM SUPERMARKET MANAGER [facility] NEUTROPHIL ABSOLUTE 4.12 1.78 - 5.38 K/uL 01/11/2013 9:39 PM SUPERMARKET MANAGER [facility] LYMPHOCYTE ABSOLUTE 2.50 1.20 - 3.40 K/uL 01/11/2013 9:39 PM SUPERMARKET MANAGER [facility] MONOCYTE ABSOLUTE 1.00(H) 0.30 - 0.82 K/uL 01/11/2013 9:39 PM SUPERMARKET MANAGER [facility] EOSINOPHIL ABSOLUTE 0.19 0.04 - 0.54 K/uL 01/11/2013 9:39 PM SUPERMARKET MANAGER [facility] BASOPHILS ABSOLUTE 0.03 0.01 - 0.08 K/uL 01/11/2013 9:39 PM SUPERMARKET MANAGER [facility] Blood specimen (specimen) 01/11/2013 8:41 PM SUPERMARKET MANAGER 01/11/2013 9:19 PM SUPERMARKET MANAGER us Chai Lindsay DO HEMATOLOGY ORDERABLES Final Res ult [facility] CLIA # [id number] [address] [address] documented in this encounter Visit Diagnoses Diagnosis Sick Other unknown and unspecified cause of morbidity or mortality documented in this encounter Care Teams Verification Engineer Relationship Specialty Start Date End Date Saji York MD [address] [id number] PCP - General Family Practice 04/09/21 documented as of this encounter
--- OUTSIDE RECORDS SUMMARY | 2025-03-31 15:46 | XMS_ITS | Encounter Summary ---
Author Organization [facility] Address [address] [place] [address] Care Team Providers Care Fuel System Maintenance Worker Name Role Phone Saji York MD Primary Care Provider [phone] [phone] Encounter Details Date Type Department Care Team (Latest Contact Info) Description 06/25/2002 Outpatient Historical [facility] Medicine [address] [address] Chai Lindsay DO NO ADDRESS ON FILE CARDIOMEGALY (Primary Dx); SHORTNESS OF BREATH; ESOPHAGEAL REFLUX; ABNORMAL WEIGHT GAIN Social History Tobacco Use Types Packs/Day Years Used Date Smoking Tobacco: Never Assessed Sex and Gender Information Value Date Recorded Sex Assigned at Not on file Legal 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
--- OUTSIDE RECORDS SUMMARY | 2025-03-31 15:46 | XMS_ITS | Encounter Summary ---
Author Organization [facility] Address [address] [place] [address] Care Team Providers Care Sliver Lapper Name Role Phone Saji York MD Primary Care Provider +1 [phone] Encounter Details Date Type Department Care Team (Latest Contact Info) Description 08/19/2000 Outpatient Historical [facility] Medicine [address] [address] Kulwinder Williamson MD Esophageal reflux (Primary Dx) Social History Tobacco Use Types Packs/Day Years Used Date Smoking Tobacco: Never Assessed Sex and Gender Information Value Date Recorded Sex Assigned at Not on file Legal Sex Male 5:31 AM STONE HAND Gender Identity Not on file Sexual Orientation Not on file documented as of this encounter Plan of Treatment Not on file documented as of this encounter Visit Diagnoses Diagnosis Esophageal reflux- Primary documented in this encounter Care Teams Sliver Lapper Relationship Specialty Start Date End Date Saji York MD [address] [address] PCP - General Family Practice 04/09/21 documented as of this encounter
--- OUTSIDE RECORDS SUMMARY | 2025-03-31 15:46 | XMS_ITS | Encounter Summary ---
Author Organization [facility] Address [address] [facility] [address] Panchal: [place] [address] Care Team Providers Care Metal Reed Tuner Name Role Phone Saji York MD Primary Care Provider +1 -[phone] Encounter Details Date Type Department Care Team (Late st Contact Info) Description 09/03/2000 Outpatient Historical Kulwinder Williamson MD Social History Tobacco Use Types Packs/Day Years Used Date Smoking Tobacco: Never Assessed Sex and Gender Information Value Date Recorded Sex Assigned at Not on file Legal Sex Male 5:31 AM WRAPPING CHECKER Gender Identity Not on file Sexual Orientation Not on file documented as of this encounter Plan of Treatment Not on file documented as of this encounter Visit Diagnoses Not on filedocumented in this encounter Care Teams Metal Reed Tuner Relationship Specialty Start Date End Date Saji York MD [address] [facility] [address] [place] [address] PCP - General Family Practice 04/09/21 documented as of this encounter
--- OUTSIDE RECORDS SUMMARY | 2025-03-31 15:46 | XMS_ITS | Encounter Summary ---
Author Organization [facility] Address [address] [place] [address] Care Team Providers Care Videogame Designer Name Role Phone Saji York MD Primary Care Provider +1 [phone] Encounter Details Date Type Department Care Team (Latest Contact Info) Description 08/01/2000 Outpatient Historical [facility] Medicine [address] [address] Jg Vidal MD [address] [id number] Reflux esophagitis (Primary Dx); Acute laryngitis Social History Tobacco Use Types Packs/Day Years Used Date Smoking Tobacco: Never Assessed Sex and Gender Information Value Date Recorded Sex Assigned at Not on file Legal Sex Male 5:31 AM PEDICURIST Gender Identity Not on file Sexual Orientation Not on file documented as of this encounter Plan of Treatment Not on file documented as of this encounter Visit Diagnoses Diagnosis Reflux esophagitis- Primary Acute laryngitis documented in this encounter Care Teams Videogame Designer Relationship Specialty Start Date End Date Saji York MD [address] [address] PCP - General Family Practice 04/09/21 documented as of this encounter
--- OUTSIDE RECORDS SUMMARY | 2025-03-31 15:46 | XMS_ITS | Encounter Summary ---
Author Organization [facility] Address [address] [place] [address] Care Team Providers Care Motor Vehicle Assembly Supervisor Name Role Phone Saji York MD Primary Care Provider +1 -[phone] Encounter Details Date Type Department Care Team (Latest Contact Info) Description 08/19/2000 Outpatient Historical [facility] Medicine- [facility] [address] [place] [address] Balbina Ruiz NO ADDRESS ON FILE Hematemesis (Primary Dx); Other voice and resonance disorders Social History Tobacco Use Types Packs/Day Years Used Date Smoking Tobacco: Never Assessed Sex and Gender Information Value Date Recorded Sex Assigned at Not on file Legal Sex Male 5:31 AM WAXER FLOOR Gender Identity Not on file Sexual Orientation Not on file documented as of this encounter Plan of Treatment Not on file documented as of this encounter Visit Diagnoses Diagnosis Hematemesis- Primary Other voice and resonance disorders documented in this encounter Care Teams Motor Vehicle Assembly Supervisor Relationship Specialty Start Date End Date Saji York MD [address] [place] [address] PCP - General Family Practice 04/09/21 documented as of this encounter
--- OUTSIDE RECORDS SUMMARY | 2025-03-31 15:46 | XMS_ITS | Encounter Summary ---
Author Organization [facility] Address [address] [place] [address] Care Team Providers Care Queen'S Counsel Name Role Phone Saji York MD Primary Care Provider +1 -[phone] Encounter Details Date Type Department Care Team (Latest Contact Info) Description 02/17/2001 Outpatient Historical [facility] Medicine [address] [address] Chai Lindsay DO NO ADDRESS ON FILE Allergic rhinitis due to other allergen (Primary Dx); Acute sinusitis, unspecified Social History Tobacco Use Types Packs/Day Years Used Date Smoking Tobacco: Never Assessed Sex and Gender Information Value Date Recorded Sex Assigned at Not on file Legal 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
--- OUTSIDE RECORDS SUMMARY | 2025-03-31 15:46 | XMS_ITS | Encounter Summary ---
Author Organization [facility] Address [address] [place] [address] Care Team Providers Care Stripe Marker Name Role Phone Saji York MD Primary Care Provider +1 -[phone] Encounter Details Date Type Department Care Team (Latest Contact Info) Description 09/10/2000 Outpatient Historical 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
--- OUTSIDE RECORDS SUMMARY | 2025-03-31 15:46 | XMS_ITS | Encounter Summary ---
Author Organization [facility] Address [address] [place] [address] Care Team Providers Care Motion Study Technician Name Role Phone Saji York MD Primary Care Provider +1 [phone] Encounter Details Date Type Department Care Team (Latest Contact Info) Description 08/21/2000 Outpatient Historical [facility] Medicine [address] [address] Kulwinder Williamson MD Esophageal reflux (Primary Dx) Social History Tobacco Use Types Packs/Day Years Used Date Smoking Tobacco: Never Assessed Sex and Gender Information Value Date Recorded Sex Assigned at Not on file 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
--- OUTSIDE RECORDS SUMMARY | 2025-03-31 15:46 | XMS_ITS | Encounter Summary ---
Author Organization [facility] Address [address] [place] [address] Care Team Providers Care Shipper/Receiver Name Role Phone Saji York MD Primary Care Provider +1 [phone] Encounter Details Date Type Department Care Team (Latest Contact Info) Description 12/07/2001 Outpatient Historical [facility] Medicine [address] [address] Chai Lindsay DO NO ADDRESS ON FILE HYPERLIPIDEMIA NEC/NOS (Primary Dx) Social History Tobacco Use Types Packs/Day Years Used Date Smoking Tobacco: Never Assessed Sex and Gender Information Value Date Recorded Sex Assigned at Not on file 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
--- OUTSIDE RECORDS SUMMARY | 2025-03-31 15:46 | XMS_ITS | Encounter Summary ---
Author Organization [facility] Address [address] [place] [address] Care Team Providers Care Legal Instructor Name Role Phone Saji York MD Primary Care Provider +1 [phone] Encounter Details Date Type Department Care Team (Latest Contact Info) Description 11/23/[address] 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
--- OUTSIDE RECORDS SUMMARY | 2025-03-31 15:46 | XMS_ITS | Encounter Summary ---
Author Organization [facility] Address [address] [place] [address] Care Team Providers Care Garment Patternmaker Name Role Phone Saji York MD Primary Care Provider +1 [phone] Encounter Details Date Type Department Care Team (Latest Contact Info) Description 01/07/2003 Outpatient Historical [address] [phone] Chai Lindsay DO NO ADDRESS ON FILE CHRONIC AIRWAY OBSTRUCTION NEC (CMS/HCC) (Primary Dx); EDEMA; BACKACHE NOS Social History Tobacco Use Types Packs/Day Years Used Date Smoking Tobacco: Never Assessed Sex and Gender Information Value Date Recorded Sex Assigned at Not on file 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
--- OUTSIDE RECORDS SUMMARY | 2025-03-31 15:46 | XMS_ITS | Encounter Summary ---
Author Organization [facility] Address [address] [place] [address] Care Team Providers Care Sieve Maker Name Role Phone Saji York MD Primary Care Provider +1 -[phone] Encounter Details Date Type Department Care Team (Latest Contact Info) Description 11/29/2002 Outpatient Historical [facility] [address] [place] [address] Jg Vidal MD [address] [facility] [address] [place] [address] ACUTE BRONCHITIS (Primary Dx); ACUTE SINUSITIS NOS Social History Tobacco Use Types Packs/Day Years Used Date Smoking Tobacco: Never Assessed Sex and Gender Information Value Date Recorded Sex Assigned at Not on file Legal Sex Male 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
--- OUTSIDE RECORDS SUMMARY | 2025-03-31 15:46 | XMS_ITS | Encounter Summary ---
Author Organization [facility] Address [address] [place] [address] Care Team Providers Care Clock Repair Technician Name Role Phone Saji York MD Primary Care Provider +1 [phone] Encounter Details Date Type Department Care Team (Latest Contact Info) Description 09/25/2000 Outpatient Historical [facility] Medicine [address] [address] Balbina Ruiz NO ADDRESS ON FILE Acute bronchitis (Primary Dx); Other kyphoscoliosis and scoliosis; Backache, unspecified Social History Tobacco Use Types Packs/Day Years Used Date Smoking Tobacco: Never Assessed Sex and Gender Information Value Date Recorded Sex Assigned at Not on file 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
--- OUTSIDE RECORDS SUMMARY | 2025-03-31 15:46 | XMS_ITS | Encounter Summary ---
Author Organization [facility] Address [address] [place] [address] Care Team Providers Care Frit Mixer And Burner Name Role Phone Saji York MD Primary Care Provider +1 -[phone] Encounter Details Date Type Department Care Team (Late st Contact Info) Description 02/28/2011 Ancillary Orders [facility] Orthoped[facility]- [address] [place] [address] [place] [address] Martin Mathews MD [address] [place] [address] Shoulder pain Social History Tobacco Use Types Packs/Day Years Used Date Smoking Tobacco: Every Day Cigarettes Smokeless Tobacco: Current Chew Comments:smoked 10 yrs. 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 Findings: 0.2 mL OptiMARK contrast and 5 mL Conray-60 contrast was injected into the right glenohumeral joint. The images confirm the intra-articular injection. No definite rotator cuff tear is identified. Please see the MRI of the same day. Old right rib fracture deformities are noted. tjb - uploaded from [employer]- Procedure Note Deirdre Chakraborty MD - 02/28/2011 Exam: XR SHOULDER 2+ VW RIGHT Date/Time of Exam: Feb 28, 2011 01:26:00 PM History: Shoulder pain. Findings: 0.2 mL OptiMARK contrast and 5 mL Conray-60 contrast was injected into the right glenohumeral joint. The images confirm the intra-articular injection. No definite rotator cuff tear is identified. Please see the MRI of the same day. Old right rib fracture deformities are noted. tjb - uploaded from [employer]- Martin Mathews MD DIAGNOSTIC IMAGING ORDERABLES Final Result documented in this encounter Visit Diagnoses Diagnosis Shoulder pain Pain in joint, shoulder region Shoulder pain Pain in joint, shoulder region documented in this encounter Care Teams Frit Mixer And Burner Relationship Specialty Start Date End Date Saji York MD [address] [phone] PCP - General Family Practice 04/09/21 documented as of this encounter
--- OUTSIDE RECORDS SUMMARY | 2025-03-31 15:47 | XMS_ITS | Encounter Summary ---
Author Organization 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
--- OUTSIDE RECORDS SUMMARY | 2025-03-31 15:47 | XMS_ITS | Encounter Summary ---
Author Organization [facility] Address [address] [place] [address] Care Team Providers Care Broadcast Producer Name Role Phone Saji York MD Primary Care Provider +1 -[phone] Reason for Visit * Reason Onset Date Comments Patient Communication 03/14/2025 referral 03/14/2025 Needs Orders Written Encounter Details Date Type Department Care Team (Late st Contact Info) Description 03/14/2025 Telephone [facility] Medicine [address] [address] Saji York MD [address] [address] Patient Communication; referral ; Needs Orders Written Social History Tobacco Use Types Packs/Day Years Used Date Smoking Tobacco: Former Cigarettes Q uit: 11/17/1981 Passive Smoke Exposure: Past Smokeless Tobacco: Current Chew Comments:Quit smoking: smoke d 10 yrs. Quit 1998 but now chews 1 can daily x 5 yrs Alcohol Use Standard Drinks/Week Comments No 0 (1 standard drink = 0.6 oz pur e alcohol) Feeling Safe Answer Date Recorded Are you in a relationship wi th someone who hurts you emotionally and/or physically? 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 Pt notified. Susan Landa LPN, 03/28/2025 1:43 PM * Telephone Encounter - Simran Baker - 03/28/2025 10:48 AM CDT Copied from [facility] #[id number]. Topic: Patient or Caregiver Communication Request >> March 28, 2025 10:45 AM Simran Willett wrote: Patient or Caregiver requesting that a message be sent to Care Team Caller: Sukumar Bangura Patient/Caregiver Callback Number: Telephone Information: Call Notes: Patient states he needs the order for the scooter to go to [facility]; ask for Emilee at [phone] and she'll provide fax number. Patient would like a call back when this has been taken care of. * Telephone Encounter - Susan Landa LPN - 03/14/2025 1:28 PM CDT Order faxed to [facility]. Susan Landa LPN, 03/14/2025 1:28 PM * Telephone Encounter - Griselda Yadav - 03/14/2025 12:35 PM CDT Patient has not heard anything from the therapist in regards to a scooter. Please call and advise patient. Griselda Yadav, 03/14/2025 12:36 PM documented in this encounter Plan of Treatment Upcoming Encounters Date Type Department Care Team (Late st Contact Info) Description 06/09/2025 11:20 AM CDT [facility] [address] [address] Saji York MD [address] [address] documented as of this encounter Visit Diagnoses Not on filedocumented in this encounter Care Teams Broadcast Producer Relationship Specialty Start Date End Date Saji York MD [address] [address] PCP - General 04/09/21 documented as of this encounter
--- OUTSIDE RECORDS SUMMARY | 2025-03-31 15:47 | XMS_ITS | Encounter Summary ---
Author Organization [facility] Address [address] [place] [address] Care Team Providers Care Desk Monitor Name Role Phone Saji York MD Primary Care Provider +1 -[phone] Encounter Details Date Type Department Care Team (Latest Contact Info) Description 10/25/2003 Outpatient Historical [facility] Medicine [address] [address] Chai Lindsay DO NO ADDRESS ON FILE DYSPHAGIA (Primary Dx); CHEST PAIN NOS Social History Tobacco Use Types Packs/Day Years Used Date Smoking Tobacco: Never Assessed Sex and Gender Information Value Date Recorded Sex Assigned at Not on file Legal Sex Male 5:[address] OPERATOR [address] SUPERVISOR Gender Identity Not on file Sexual Orientation Not on file documented as of this encounter Plan of Treatment Not on file documented as of this encounter Visit Diagnoses Diagnosis Dysphagia- Primary Chest pain, unspecified documented in this encounter Care Teams Desk Monitor Relationship Specialty Start Date End Date Saji York MD [address] [address] PCP - General Family Practice 04/09/21 documented as of this encounter
--- OUTSIDE RECORDS SUMMARY | 2025-03-31 15:47 | XMS_ITS | Encounter Summary ---
Author Organization [facility] Address [address] [place] [address] Care Team Providers Care Cable Swager Name Role Phone Saji York MD Primary Care Provider +1 -[phone] Encounter Details Date Type Department Care Team (Late st Contact Info) Description 07/02/2016 Lab Requisition [facility] Laboratory Services [place] [address] [place] [address] Chai Lindsay, NO ADDRESS ON FILE Social History Tobacco Use Types Packs/Day Years Used Date Smoking Tobacco: Former Cigarettes Q uit: 11/17/1981 Smokeless Tobacco: Current Chew Comments:smoked 10 yrs. 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 Gender Identity Not on file Sexual Orientation Not on file Occupation Industry Job Start Date Job End Date Not on file Not on file Not on file Not on file documented as of this encounter Plan of Treatment Not on file documented as of this encounter Procedures Procedure Name Priority Date/Time Associated Diagnosis Comments BRAIN NATRIURETIC PEPTIDE, BNP OR PROBNP Routine 07/01/2016 8:05 PM CDT documented in this encounter Results * BRAIN NATRIURETIC PEPTIDE, BNP OR PROBNP (07/01/2016 8:05 PM CDT) PROBNP, N TERMINAL 98 0 - 125 pg/mL 07/02/2016 3:12 AM CDT [facility] Blood Collection / Unknown 07/01/2016 8:05 PM CDT 07/02/2016 2:42 AM CDT Chai Lindsay DO CHEMISTRY ORDERABLES Final Resu lt [facility] CLIA # [id number] [address] [address] documented in this encounter Visit Diagnoses Not on filedocumented in this encounter Care Teams Cable Swager Relationship Specialty Start Date End Date Saji York MD [address] [address] PCP - General Family Practice 04/09/21 documented as of this encounter
--- OUTSIDE RECORDS SUMMARY | 2025-03-31 15:47 | XMS_ITS | Encounter Summary ---
Author Organization [facility] Address [address] [place] [address] Care Team Providers Care Dairy Processing Supervisor Name Role Phone Saji York MD Primary Care Provider +1 -[phone] Encounter Details Date Type Department Care Team (Latest Contact Info) Description 07/30/2005 Outpatient Historical [facility] Medicine [address] [address] Chai Lindsay DO NO ADDRESS ON FILE ACUTE BRONCHITIS (Primary Dx); CARDIOMEGALY Social History Tobacco Use Types Packs/Day Years Used Date Smoking Tobacco: Never Assessed Sex and Gender Information Value Date Recorded Sex Assigned at Not on file 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
--- OUTSIDE RECORDS SUMMARY | 2025-03-31 15:47 | XMS_ITS | Encounter Summary ---
Author Organization [facility] Address [address] [place] [address] Care Team Providers Care Waste Disposal Leakage Tester Name Role Phone Saji York MD Primary Care Provider +1 -[phone] Encounter Details Date Type Department Care Team (Late st Contact Info) Description 09/05/1999 Outpatient Historical [facility] Imaging Services-[facility] [place] A [address] [place] [address] Social History Tobacco Use Types Packs/Day Years Used Date Smoking Tobacco: Never Assessed Sex and Gender Information Value Date Recorded Sex Assigned at Not on file 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
--- OUTSIDE RECORDS SUMMARY | 2025-03-31 15:47 | XMS_ITS | Encounter Summary ---
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
--- OUTSIDE RECORDS SUMMARY | 2025-03-31 15:47 | XMS_ITS | Encounter Summary ---
Author Organization [facility] Address [address] [place] [address] Care Team Providers Care Hydrodynamics Professor Name Role Phone Saji York MD Primary Care Provider [phone] Encounter Details Date Type Department Care Team (Latest Contact Info) Description 01/30/2004 Outpatient Historical [facility] Medicine [address] [address] Chai Lindsay DO NO ADDRESS ON FILE ABNORMAL WEIGHT GAIN (Primary Dx); ESOPHAGEAL REFLUX; HEMATURIA Social History Tobacco Use Types Packs/Day Years Used Date Smoking Tobacco: Never Assessed Sex and Gender Information Value Date Recorded Sex Assigned at Not on file 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
--- OUTSIDE RECORDS SUMMARY | 2025-03-31 15:47 | XMS_ITS | Encounter Summary ---
Author Organization [facility] Address [address] [place] [address] Care Team Providers Care Human Resources Department Supervisor Name Role Phone Saji York MD Primary Care Provider [phone] Encounter Details Date Type Department Care Team (Latest Contact Info) Description 10/15/2004 Outpatient Historical [facility] Medicine [address] [address] Chai Lindsay DO NO ADDRESS ON FILE ACUTE URI NOS (Primary Dx); Skin sensation disturb Social History Tobacco Use Types Packs/Day Years Used Date Smoking Tobacco: Never Assessed Sex and Gender Information Value Date Recorded Sex Assigned at Not on file 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
--- OUTSIDE RECORDS SUMMARY | 2025-03-31 15:47 | XMS_ITS | Encounter Summary ---
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 Gender Identity Not on file Sexual Orientation Not on file Occupation Industry Job Start Date Job End Date Not on file Not on file Not on file Not on file documented as of this encounter Plan of Treatment Not on file documented as of this encounter Procedures Procedure Name Priority Date/Time Associated Diagnosis Comments CBC WITH DIFFERENTIAL Routine 11/20/2015 8:00 PM CANCER GENETIC COUNSELOR TSH Routine 11/20/2015 8:00 PM CANCER GENETIC COUNSELOR BRAIN NATRIURETIC PEPTIDE, BNP OR PROBNP Routine 11/20/2015 8:00 PM CANCER GENETIC COUNSELOR COMPREHENSIVE METABOLIC PANEL Routine 11/20/2015 8:00 PM CANCER GENETIC COUNSELOR documented in this encounter Results * TSH (11/20/2015 8:00 PM CANCER GENETIC COUNSELOR) TSH 2.07 0.27 - 4.20 uIU/mL 11/21/2015 12:21 AM CANCER GENETIC COUNSELOR [facility] [place] Blood 11/20/2015 8:00 PM CANCER GENETIC COUNSELOR 11/20/2015 10:07 PM CANCER GENETIC COUNSELOR us Chai Lindsay DO CHEMISTRY ORDERABLES Final Resu lt [facility] [email or web address] [facility] [place] CLIA # [id number] [address] [place] [address] * (ABNORMAL) COMPREHENSIVE METABOLIC PANEL (11/20/2015 8:00 PM CANCER GENETIC COUNSELOR) SODIUM 142 136 - 145 mmol/L 11/21/2015 12:21 AM CANCER GENETIC COUNSELOR [facility] [place] POTASSIUM 4.0 3.5 - 5.1 mmol/L 11/21/2015 12:21 AM [facility] [place] CHLORIDE 96(L) 98 - 107 mmol/L 11/21/2015 12:21 AM [facility] [place] CO2 34(H) 22 - 29 mmol/L 11/21/2015 12:21 AM [facility] [place] CALCIUM 9.4 8.6 - 10.0 mg/dL 11/21/2015 12:21 AM CANCER GENETIC COUNSELOR [facility] [place] BUN 16 6 - 20 mg/dL 11/21/2015 12:21 AM [facility] [place] CREATININE 0.80 0.67 - 1.17 mg/dL 11/21/2015 12:21 AM [facility] [place] GLUCOSE 139(H) 74 - 106 mg/dL 11/21/2015 12:21 AM [facility] [place] TOTAL PROTEIN 7.7 6.6 - 8.7 g/dL 11/21/2015 12:21 AM [facility] [email or web address] [facility] ALBUMIN 4.0 3.5 - 5.2 g/dL 11/21/2015 12:21 AM [facility] [email or web address] [facility] BILIRUBIN TOTAL 0.4 0.0 - 1.2 mg/dL 11/21/2015 12:21 AM [facility] ALKALINE PHOSPHATASE 91 40 - 129 U/L 11/21/2015 12:21 AM [facility] AST 23 10 - 50 U/L 11/21/2015 12:21 AM [facility] [email or web address] [facility] ALT 21 10 - 50 U/L 11/21/2015 12:21 AM [facility] [email or web address] [facility] GFR >60 >=60 mL/min/1.7 3 sq meter 11/21/2015 12:21 AM [facility] [email or web address] [facility] Comment: eGFR has not been validated for use in the elderly (> 70 years of age), women, patients with serious co-morbid conditions, or persons with extremes of body size or muscle mass and should also be interpreted with caution in patients with acute kidney failure, dialysis dependent patients, patients reporting exceptional dietary intake (e.g. vegetarian diet, high protein diets, creatine supplementation), and patients with severe liver disease. Based on National Kidney Disease Education Program If patient is , please refer to the GFR result. GFR, >60 >=60 mL/min/1.7 3 sq meter 11/21/2015 12:21 AM [facility] [email or web address] [facility] ANION GAP 12 12 - 20 mmol/L 11/21/2015 12:21 AM [facility] [email or web address] [facility] Blood 11/20/2015 8:00 PM CANCER GENETIC COUNSELOR 11/20/2015 10:07 PM CANCER GENETIC COUNSELOR us Chai Lindsay DO CHEMISTRY ORDERABLES Final Resu lt [facility] [email or web address] [facility] CLIA # [id number] [address] [place] [phone] * (ABNORMAL) CBC WITH DIFFERENTIAL (11/20/2015 8:00 PM CANCER GENETIC COUNSELOR) WBC 5.9 4.2 - 9.1 K/uL 11/20/2015 11:11 PM CANCER GENETIC COUNSELOR [facility] [place] RBC 5.62 4.63 - 6.08 M/uL 11/20/2015 11:11 PM CANCER GENETIC COUNSELOR [facility] [place] HEMOGLOBIN 16.4 13.7 - 17.5 g/dL 11/20/2015 11:11 PM CANCER GENETIC COUNSELOR [facility] [place] HEMATOCRIT 52.3(H) 40.1 - 51.0 % 11/20/2015 11:11 PM CANCER GENETIC COUNSELOR [facility] [place] MCV 93.1(H) 79.0 - 92.2 fL 11/20/2015 11:11 PM CANCER GENETIC COUNSELOR [facility] [place] MCH 29.2 25.7 - 32.2 pg 11/20/2015 11:11 PM CANCER GENETIC COUNSELOR [facility] [place] MCHC 31.4(L) 32.3 - 36.5 g/dL 11/20/2015 11:11 PM CANCER GENETIC COUNSELOR [facility] [place] RDW 13.4 11.0 - 14.5 % 11/20/2015 11:11 PM CANCER GENETIC COUNSELOR [facility] [place] RDW-STDEV 44.3 36.9 - 56.9 fL 11/20/2015 11:11 PM CANCER GENETIC COUNSELOR [facility] [place] PLATELETS 195 130 - 400 K/uL 11/20/2015 11:11 PM CANCER GENETIC COUNSELOR [facility] [place] MPV 10.1 10.0 - 14.8 fL 11/20/2015 11:11 PM CANCER GENETIC COUNSELOR [facility] [place] NEUTROPHILS 56 34 - 68 % 11/20/2015 11:11 PM CANCER GENETIC COUNSELOR [facility] [place] LYMPHOCYTES 28 22 - 53 % 11/20/2015 11:11 PM CANCER GENETIC COUNSELOR [facility] [place] MONOCYTES 10 5 - 12 % 11/20/2015 11:11 PM CANCER GENETIC COUNSELOR [facility] [place] EOSINOPHILS 6 1 - 7 % 11/20/2015 11:11 PM CANCER GENETIC COUNSELOR [facility] [place] BASOPHILS 1 0 - 1 % 11/20/2015 11:11 PM CANCER GENETIC COUNSELOR [facility] [place] NEUTROPHIL ABSOLUTE 3.31 1.78 - 5.38 K/uL 11/20/2015 11:11 PM CANCER GENETIC COUNSELOR [facility] [place] LYMPHOCYTE ABSOLUTE 1.62 1.20 - 3.40 K/uL 11/20/2015 11:11 PM CANCER GENETIC COUNSELOR [facility] [place] MONOCYTE ABSOLUTE 0.60 0.30 - 0.82 K/uL 11/20/2015 11:11 PM CANCER GENETIC COUNSELOR [facility] [place] EOSINOPHIL ABSOLUTE 0.33 0.04 - 0.54 K/uL 11/20/2015 11:11 PM CANCER GENETIC COUNSELOR [facility] [place] BASOPHILS ABSOLUTE 0.03 0.01 - 0.08 K/uL 11/20/2015 11:11 PM CANCER GENETIC COUNSELOR [facility] [place] IMMATURE GRANULOCYTES 0 % 11/20/2015 11:11 PM CANCER GENETIC COUNSELOR [facility] [place] IMMATURE GRANULOCYTES ABSOLUTE 0.01 K/uL 11/20/2015 11:11 PM CANCER GENETIC COUNSELOR [facility] [place] Blood 11/20/2015 8:00 PM CANCER GENETIC COUNSELOR 11/20/2015 10:07 PM CANCER GENETIC COUNSELOR Chai Lindsay DO HEMATOLOGY ORDERABLES Final Res ult Performing Organization Address City/[facility]/ZIP Co de Phone Number [facility] [place] CLIA # [id number] [address] [place] [phone] * BRAIN NATRIURETIC PEPTIDE, BNP OR PROBNP (11/20/2015 8:00 PM CANCER GENETIC COUNSELOR) PROBNP, N TERMINAL 85 0 - 125 pg/mL 11/21/2015 12:21 AM CANCER GENETIC COUNSELOR [facility] [place] Blood 11/20/2015 8:00 PM CANCER GENETIC COUNSELOR 11/20/2015 10:07 PM CANCER GENETIC COUNSELOR Chai Lindsay DO CHEMISTRY ORDERABLES Final Resu lt Performing Organization Address [facility]/ZIP Co de Phone Number [facility] [place] CLIA # [id number] [address] [place] [phone] documented in this encounter Visit Diagnoses Not on filedocumented in this encounter Care Teams Armature Balancer Relationship Specialty Start Date End Date Saji York MD [address] [id number] PCP - General Family Practice 04/09/21 documented as of this encounter
--- OUTSIDE RECORDS SUMMARY | 2025-03-31 15:47 | XMS_ITS | Encounter Summary ---
Author Organization 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
--- OUTSIDE RECORDS SUMMARY | 2025-03-31 15:47 | XMS_ITS | Clinical Summary ---
Author Organization [facility] Address [address] [place] [address] Care Team Providers Care Drivers License Examiner Name Role Phone Saji York MD Primary Care Provider +1 [phone] Allergies Active Allergy Reactions Criticality Noted Date Comments Codeine Hives High Medications fluticasone-regis meterol (ADVAIR DISKUS) 250-50 mcg/dose disk inhaler Take 1 Puff by inhalation 2 times daily. Active albuterol HFA 90 mcg inhaler Take 2 Puffs by inhalation every 4 hours as needed for Shortness of Breath. Active ipratropium bromide (ATROVENT) 0.02 % SolutionIndicat ions:Chronic obstructive pulmonary disease, unspecified COPD type (CMS/HCC) Take 2.5 mL (0.5 mg) by inhalation every 12 hours as needed for Shortness of Breath. 62.5 mL 2 7 Active oxygen home deliveryIndicat ions:Chronic obstructive pulmonary disease, unspecified COPD type (CMS/HCC),Chron ic respiratory failure with hypoxia (CMS/HCC),Noctu rnal hypoxia Home Oxygen Concentrator yes at 0 L/M Rest, 0 L/M Activity, 2 L/M Sleep, Delivery Device: Nasal Cannula Portability: no, 0 L/M Rest, 0 L/M Activity, May provide device best for patient needs(E system,home fill, conserving device) Length of Need: 99 months 1 Each 0 Active potassium chloride (KLOR-CON) 10 mEq Extended Release tabletIndicatio ns:Chronic congestive heart failure, unspecified heart failure type (CMS/HCC) Take 1 Tablet (10 mEq) by mouth daily with breakfast. 30 Tablet 11 0 Active furosemide (Lasix) 20 mg tabletIndicatio ns:Chronic congestive heart failure, unspecified heart failure type (CMS/HCC) Take 2-3 Tablets (40-60 mg) by mouth daily. 90 Tablet 11 0 Active promethazine-de xtromethorphan (PHENERGAN-DM) 6.25-15 mg/5 mL syrupIndication s:Chronic obstructive pulmonary disease, unspecified COPD type (CMS/HCC) Take 5 mL by mouth every 6 hours as needed for Cough. 120 mL 1 1 Active HYDROcodone-florencia taminophen (NORCO) 5-325 mg tabletIndicatio ns:Kyphoscolios is,Chronic midline low back pain without sciatica Take 1 Tablet by mouth every 8 hours as needed for Pain, Moderate. Max Daily Amount: 3 Tablets 21 Tablet 1 Active fluticasone propionate (FLONASE) 50 mcg/spray [place], Suspension nasal inhaler Use 2 spray(s) in each nostril once daily 16 Gram 1 Active Active Problems Problem Noted Date Diagnosed Date Obesity hypoventilation syndrome 10/05/2020 Polycythemia 10/05/2020 Chronic respiratory failure with hypoxia and hyp ercapnia 09/14/2020 Nocturnal hypoxia 09/14/2020 Prediabetes 06/05/2020 Chronic congestive heart failure 05/05/2020 group home prescription opiate use 05/21/2019 Morbid obesity with body mass index of 40.0-49.9 05/21/2019 ED (erectile dysfunction) 02/10/2018 Tobacco abuse, 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 Overview (11/12/2012): Quit in 80s Chronic low back pain 11/12/2012 Overview (11/12/2012): S/P Multiple back surgeries Weight reduction 01/23/2010 COPD (chronic obstructive pulmonary disease) Kyphoscoliosis Esophageal reflux Acquired deformity of arm Resolved Problems Problem Noted Date Diagnosed Date Resolved Date Obesity (BMI 35.0-39.9 without comorbidity) 03/18/2013 08/03/2020 Elevated LFTs 11/12/2012 01/05/2018 Overview (11/12/2012): CMP: 04/28 S/P appendectomy 05/19/2012 11/12/2012 Seroma complicating a procedure 05/12/2012 05/19/2012 Acute appendicitis without m ention of peritonitis 04/27/2012 05/19/2012 Pain in joint, shoulder region 02/21/2011 12/06/2011 Hyperglycemia 11/12/2012 Immunizations Immunization Administration Dates Next Due (TDVAX)(7 YRS UP) TETANUS AN D DIPHTHERIA TOXOIDS, ADSORBED (2 LF OF TETANUS TOXOID AND 2 LF OF DIPHTHERIA TOXOID), 0.5ML (PF), IM 09/19/2008,09/23/1989 INFLUENZA VACCINE QUADRIVALENT 6 MOS UP PF IM Influenza Seasonal Unspecified Formulation IM Influenza Vaccine Tri Split 4+ Im 09/17/2018 Family History Medical History Relation Name Comments Cancer Father throat Breast Cancer Neg Hx Diabetes Neg Hx Heart Disease Neg Hx Relation Name Status Comments Father Social History Tobacco Use Types Packs/Day Years Used Date Smoking Tobacco: Former Cigarettes Q uit: 11/17/1981 Smokeless Tobacco: Former Chew Quit: 11/24/2020 Comments:smoked 10 yrs. 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 Gender Identity Not on file Sexual Orientation Not on file Occupation Industry Job Start Date Job End Date Not on file Not on file Not on file Not on file Last Filed Vital Signs Vital Sign Reading Time Taken Comments Blood Pressure 118/70 04/25/2021 1:21 PM CDT Pulse 86 04/25/2021 1:21 PM CDT Temperature 36.5 C (97.7 F) 04/25/2021 1:21 PM CDT Respiratory Rate 16 04/25/2021 1:21 PM CDT Oxygen Saturation 94% 04/25/2021 1:21 PM CDT Inhaled Oxygen Concentration - - Weight 98.9 kg (218 lb) 04/25/2021 1:21 PM CDT Height 152.4 cm (5') 04/25/2021 1:21 PM CDT Body Mass Index 42.58 04/25/2021 1:21 PM CDT Plan of Treatment Health Maintenance Due Date Last Done Comments DIABETES ANNUAL FOOT EXAM 1974 DIABETES ANNUAL RETINAL EXAM 1974 DIABETES MICROALBUMIN ANNUAL SCREEN 1974 FIT/FOBT Q 1 YEAR (AUTO ORDER) 1974 FLEX SIG/CT COLONOGRAPHY Q 5 YEARS (AUTO ORDER) 1974 PNEUMOCOCCAL VACCINE 50+ YEA RS (1 of 2 - PCV) 1975 FIT/FOBT Q 1 year 2001 Flex Sig/CT Colonography Q 5 years 2001 ZOSTER VACCINE (1 of 2) 2006 RSV VACCINE (60+ or ) (1 - Risk 60-74 years 1-dose series) 2016 LDL CHOLESTEROL ANNUAL 01/28/2021 0, 01/29/2020, 08/12/2014, Additional history exists DIABETES HBA1C Q 6 MONTHS 10/10/20212020, 11/12/2012, 02/28/2012 FIT-DNA Q 3 years 05/03/2024 05/03/2021 FIT/ DNA Q 3 YEARS (AUTO ORDER) 05/03/2024 1 INFLUENZA VACCINE (#1) 2024 0, 09/17/2018, 09/17/2018 Medicare Advantage (DC) Preventative Visit/Annual Wellness Visit 11/17/2024 DTAP/TDAP/TD VACCINES (2 - T d or Tdap) 03/17/2029 03/17/2019, 09/19/2008, 09/23/1989 COLORECTAL CANCER SCREENING (AUTO ORDER) 06/21/2034 06/21/2024 COLORECTAL SCREENING 06/21/2034 06/21/2024 Colorectal Cancer Screening (AUTO ORDER) 06/21/2034 Colorectal Cancer Screening 06/21/2034 Procedures Procedure Name Priority Date/Time Associated Diagnosis Comments COLON CANCER SCREEN, STOOL DNA Routine 05/03/2021 12:00 AM CDT Screening for colon cancer HEMOGLOBIN A1C Routine 04/09/2021 10:20 AM CDT Morbid obesity with body mass index of 40.0-49.9 (CMS/HCC) Prediabetes LIPID PANEL Routine 01/29/2020 12:27 PM CDT from Last 3 Months or Most Recently Relevant to Health Maintenance Results * COLON CANCER SCREEN, STOOL DNA (05/03/2021 12:00 AM CDT) COLOGUARD RESULT Negative Negative Mint Comment: NEGATIVE TEST RESULT. A negative Cologuard result indicates a low likelihood that a colorectal cancer (CRC) or advanced adenoma (adenomatous polyps with more advanced pre-malignant features) is present. The chance that a person with a negative Cologuard test has a colorectal cancer is less than 1 in 1500 (negative predictive value >99.9%) or has an advanced adenoma is less than 5.3% (negative predictive value 94.7%). These data are based on a prospective cross-sectional study of 10,000 individuals at average risk for colorectal cancer who were screened with both Cologuard and colonoscopy. (Xiomara Ko. et al, N Engl J Med 2014;370(14):3620-2956) The normal value (reference range) for this assay is negative. COLOGUARD RE-SCREENING RECOMMENDATION: Periodic colorectal cancer screening is an important part of preventive healthcare for asymptomatic individuals at average risk for colorectal cancer. Following a negative Cologuard result, the [place] [employer] and U.S. Multi-Society Task Force screening guidelines recommend a Cologuard re-screening interval of 3 years. References: [place] [employer] Guideline for Colorectal Cancer Screening: https://www.cancer.org/cancer/kcjud-xmswck-pzsxex/agijiwzcc-ygcnvmhik-ndkqusb/ac s-rec ommendations.html.; Geraldo GODDARD, Jeison BRADLEY, Ximena ROSE, Colorectal Cancer Screening: Recommendations for Physicians and Patients from the U.S. Multi-Society Task Force on Colorectal Cancer Screening , Am J Gastroenterology 2017; 112:3075-6627. TEST DESCRIPTION: Composite algorithmic analysis of stool DNA-biomarkers with hemoglobin immunoassay. Quantitative values of individual biomarkers are not reportable and are not associated with individual biomarker result reference ranges. Cologuard is intended for colorectal cancer screening of adults of either sex, 45 years or older, who are at average-risk for colorectal cancer (CRC). Cologuard has been approved for use by the U.S. FDA. The performance of Cologuard was established in a cross sectional study of average-risk adults aged 50-84. Cologuard performance in patients ages 45 to 49 years was estimated by sub-group analysis of near-age groups. Colonoscopies performed for a positive result may find as the most clinically significant lesion: colorectal cancer [4.0%], advanced adenoma (including sessile serrated polyps greater than or equal to 1cm diameter) [20%] or non- advanced adenoma [31%]; or no colorectal neoplasia [45%]. These estimates are derived from a prospective cross-sectional screening study of 10,000 individuals at average risk for colorectal cancer who were screened with both Cologuard and colonoscopy. (Xiomara Ko. et al, N Engl J Med 2014;370(14):9595-9914.) Cologuard may produce a false negative or false positive result (no colorectal cancer or precancerous polyp present at colonoscopy follow up). A negative Cologuard test result does not guarantee the absence of CRC or advanced adenoma (pre-cancer). The current Cologuard screening interval is every 3 years. ([place] [employer] and U.S. Multi-Society Task Force). Cologuard performance data in a 10,000 patient pivotal study using colonoscopy as the reference method can be accessed at the following location: www.Starbak/results. Additional description of the Cologuard test process, warnings and precautions can be found at www.Radialogicard.com. Stool STOOL SPECIMEN / Unknown 05/03/2021 05/05/2021 12:24 AM CDT us Saji York MD BODY FLUIDS AND STOOLS Fi nal Result [facility] CLIA # [id number] [address] , [address] [place] [address] * (ABNORMAL) HEMOGLOBIN A1C (04/09/2021 10:20 AM CDT) HEMOGLOBIN A1C 5.8(H) See Comment % 04/10/2021 10:32 AM CDT [facility] EST. AVG GLUCOSE, A1C 120 mg/dL 04/10/2021 10:32 AM CDT [facility] Blood Collection / Unknown 04/09/2021 10:20 AM CDT 04/09/2021 8:27 PM CDT Narrative [facility] - 04/10/2021 10:32 AM CDT HGB A1C INTERPRETATION NORMAL: <5.7% PRE-DIABETES: 5.7 - 6.4% DIABETES: 6.5% OR GREATER Falsely low A1C measurements can occur when: 1. Anemia and/or hemolytic anemia is present. 2. Hemoglobin variants present. 3. Renal failure. 4. Transfusion of blood product in the last 120 days. We recommend ordering a fructosamine test([id number]) to more accurately assess glycemic status if any of the above conditions are present. Saji York MD CHEMISTRY ORDERABLES Neelam l Result [facility] CLIA# [id number] [address] [place] [address] * LIPID PANEL (01/29/2020 12:27 PM CDT) ABSTRACTED CHOLESTEROL 120 EXTERNAL LAB ABSTRACTED TRIGLYCERIDE 116 EXTERNAL LAB ABSTRACTED HDL 49 EXTERNAL LAB ABSTRACTED LDL CALCULATED 48 EXTERNAL LAB CHOLESTEROL EXTERNAL LAB TRIGLYCERIDE EXTERNAL LAB HDL EXTERNAL LAB LDL CALCULATED EXTERNAL LAB Blood 01/29/2020 12:2 7 PM CDT us Abstract Spg Provider CHEMISTRY ORDERABLES Final Result EXTERNAL LAB from Last 3 Months or Most Recently Relevant to Health Maintenance Insurance MEDICA BALANCE [facility] [employer] PLUS [facility] MEDICAID [place] Advance Directives For more information, please contact: [phone] * Full Code (Latest Code Status on File) Date Activated Date Inactivated Comments 04/27/2012 6:02 PM 04/30/2012 11:55 AM * Full Code Date Activated Date Inactivated Comments 05/08/2010 9:12 PM 05/09/2010 12:52 PM * Full Code Date Activated Date Inactivated Comments 05/08/2010 8:09 AM 05/08/2010 9:12 PM * Full Code Date Activated Date Inactivated Comments 05/08/2010 7:20 AM 05/08/2010 8:09 AM Care Teams Drivers License Examiner Relationship Specialty Start Date End Date Saji York MD [address] [phone] PCP - General Family Practice 04/09/21
--- OUTSIDE RECORDS SUMMARY | 2025-03-31 15:47 | XMS_ITS | Encounter Summary ---
Author Organization [facility] [facility] Address 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 Gender Identity Not on file Sexual Orientation Not on file documented as of this encounter Plan of Treatment Upcoming Encounters Date Type Department Care Team (Late st Contact Info) Description 06/09/2025 11:20 AM CDT Office Visit [facility] [address] [address] Saji York MD [address] [place] [address] documented as of this encounter Procedures Procedure Name Priority Date/Time Associated Diagnosis Comments BASIC METABOLIC PANEL Stat 02/03/2025 2:40 PM CDT Type 2 diabetes mellitus with hyperglycemia (CMS/HCC) documented in this encounter Results * (ABNORMAL) BASIC METABOLIC PANEL (02/03/2025 2:40 PM CDT) SODIUM 127(L) 136 - 145 mmol/L 02/03/2025 3:04 PM [facility] POTASSIUM 3.0(L) 3.5 - 5.1 mmol/L 02/03/2025 3:04 PM [facility] CHLORIDE 79(L) 98 - 107 mmol/L 02/03/2025 3:04 PM [facility] CO2 35(H) 22 - 29 mmol/L 02/03/2025 3:04 PM [facility] CALCIUM 9.8 8.8 - 10.2 mg/dL 02/03/2025 3:04 PM [facility] BUN 25(H) 8 - 23 mg/dL 02/03/2025 3:04 PM [facility] CREATININE 1.27(H) 0.67 - 1.17 mg/dL 02/03/2025 3:04 PM [facility] GLUCOSE 317(H) 74 - 99 mg/dL 02/03/2025 3:04 PM [facility] GFR >60 >=60 mL/min/1.7 3 sq meter 02/03/2025 3:04 PM [facility] Comment:eGFR calculated with 2020 CKD-EPI equation. Vegetarian diet, extremely high or low muscle mass, and may affect results. Cystatin C with Glomerular Filtration Rate is a suitable alternative for these patients. ANION GAP 13 5 - 20 mmol/L 02/03/2025 3:04 PM CDT [facility] Blood BLOOD SPECIMEN / Unknown Collection / Unknown 02/03/2025 2:40 PM CDT 02/03/2025 2:45 PM CDT us Saji York MD CHEMISTRY ORDERABLES Neelam l Result [facility] CLIA # [id number] [address] [id number] documented in this encounter Visit Diagnoses Diagnosis Type 2 diabetes mellitus with hyperglycemia (CMS/HCC) Type II or unspecified type diabetes mellitus without mention of complication, not stated as uncontrolled documented in this encounter Care Teams Joiner Relationship Specialty Start Date End Date Saji York MD [address] [phone] PCP - General 04/09/21 documented as of this encounter
--- OUTSIDE RECORDS SUMMARY | 2025-03-31 15:47 | XMS_ITS | Encounter Summary ---
Author Organization [facility] Address [address] [place] [address] Care Team Providers Care Manager Cardiology Name Role Phone Saji York MD Primary Care Provider +1 [phone] Encounter Details Date Type Department Care Team (Latest Contact Info) Description 05/01/2007 Outpatient Historical [facility] Medicine [address] [address] Chai Lindsay DO NO ADDRESS ON FILE Rosacea (Primary Dx) Social History Tobacco Use Types Packs/Day Years Used Date Smoking Tobacco: Never Assessed Sex and Gender Information Value Date Recorded Sex Assigned at Not on file 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
--- OUTSIDE RECORDS SUMMARY | 2025-03-31 15:47 | XMS_ITS | Encounter Summary ---
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
--- OUTSIDE RECORDS SUMMARY | 2025-03-31 15:47 | XMS_ITS | Encounter Summary ---
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 Gender Identity Not on file Sexual Orientation Not on file Occupation Industry Job Start Date Job End Date Not on file Not on file Not on file Not on file documented as of this encounter Plan of Treatment Not on file documented as of this encounter Procedures Procedure Name Priority Date/Time Associated Diagnosis Comments TSH Routine 07/01/2016 4:08 PM CDT COMPREHENSIVE METABOLIC PANEL Routine 07/01/2016 4:08 PM CDT documented in this encounter Results * TSH (07/01/2016 4:08 PM CDT) TSH 2.15 0.27 - 4.20 uIU/mL 07/02/2016 1:24 AM CDT [facility] Blood Collection / Unknown 07/01/2016 4:08 PM CDT 07/02/2016 12:07 AM CDT us Chai Lindsay DO CHEMISTRY ORDERABLES Final Resu lt [facility] CLIA # [id number] [address] [place] [id number] * (ABNORMAL) COMPREHENSIVE METABOLIC PANEL (07/01/2016 4:08 PM CDT) SODIUM 141 136 - 145 mmol/L 07/02/2016 1:24 AM [facility] POTASSIUM 5.0 3.5 - 5.1 mmol/L 07/02/2016 1:24 AM [facility] CHLORIDE 95(L) 98 - 107 mmol/L 07/02/2016 1:24 AM [facility] CO2 35(H) 22 - 29 mmol/L 07/02/2016 1:24 AM [facility] CALCIUM 9.7 8.8 - 10.2 mg/dL 07/02/2016 1:24 AM [facility] BUN 15 8 - 23 mg/dL 07/02/2016 1:24 AM [facility] CREATININE 0.82 0.67 - 1.17 mg/dL 07/02/2016 1:24 AM [facility] GLUCOSE 84 74 - 106 mg/dL 07/02/2016 1:24 AM [facility] TOTAL PROTEIN 7.8 6.6 - 8.7 g/dL 07/02/2016 1:24 AM [facility] ALBUMIN 4.1 3.5 - 5.2 g/dL 07/02/2016 1:24 AM [facility] BILIRUBIN TOTAL 0.4 0.0 - 1.2 mg/dL 07/02/2016 1:24 AM T [facility] ALKALINE PHOSPHATASE 95 40 - 129 U/L 07/02/2016 1:24 AM [facility] AST 29 10 - 50 U/L 07/02/2016 1:24 AM [facility] ALT 23 10 - 50 U/L 07/02/2016 1:24 AM [facility] GFR >60 >=60 mL/min/1.7 3 sq meter 07/02/2016 1:24 AM [facility] Comment: eGFR has not been validated for [...] GFR, >60 >=60 mL/min/1.7 3 sq meter 07/02/2016 1:24 AM [facility] ANION GAP 11(L) 12 - 20 mmol/L 07/02/2016 1:24 AM [facility] Blood Collection / Unknown 07/01/2016 4:08 PM CDT 07/02/2016 12:07 AM CDT Chai Lindsay DO CHEMISTRY ORDERABLES Final Resu lt [facility] CLIA # [id number] [address] [address] documented in this encounter Visit Diagnoses Not on filedocumented in this encounter Care Teams Bid Clerk Relationship Specialty Start Date End Date Saji York MD [address] [address] PCP - General Family Practice 04/09/21 documented as of this encounter
--- OUTSIDE RECORDS SUMMARY | 2025-03-31 15:47 | XMS_ITS | Encounter Summary ---
Author Organization [facility] Address [address] [place] [address] Care Team Providers Care Professor Of Mechanical Engineering Name Role Phone Saji York MD Primary Care Provider [phone] [phone] Encounter Details Date Type Department Care Team (Latest Contact Info) Description 05/03/2003 Outpatient Historical [facility] Medicine [address] [address] Chai Lindsay DO NO ADDRESS ON FILE ACUTE SINUSITIS NOS (Primary Dx); ALLERGIC RHINITIS NOS; ESOPHAGEAL REFLUX Social History Tobacco Use Types Packs/Day Years Used Date Smoking Tobacco: Never Assessed Sex and Gender Information Value Date Recorded Sex Assigned at Not on file 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
--- OUTSIDE RECORDS SUMMARY | 2025-03-31 15:47 | XMS_ITS | Encounter Summary ---
Author Organization [facility] Address [address] [place] [address] Care Team Providers Care Certified Ski Patroller Name Role Phone Saji York MD Primary Care Provider [phone] [phone] Encounter Details Date Type Department Care Team (Latest Contact Info) Description 10/19/2004 Outpatient Historical [facility] [address] 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
--- OUTSIDE RECORDS SUMMARY | 2025-03-31 15:47 | XMS_ITS | Encounter Summary ---
Author Organization [facility] Address [address] [place] [address] Care Team Providers Care Filter Tank Tender Helper Name Role Phone Saji York MD Primary Care Provider +1 -[phone] Encounter Details Date Type Department Care Team (Latest Contact Info) Description 04/16/2007 Outpatient Historical [facility] Medicine [place] [address] [address] Yanely Benavides, GRAIN MIXER [address] [place] [address] Other Malaise and Fatigue (Primary Dx); Unspecified Essential Hypertension; Cellulitis and Abscess of Face Social History Tobacco Use Types Packs/Day Years Used Date Smoking Tobacco: Never Assessed Sex and Gender Information Value Date Recorded Sex Assigned at Not on file 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
--- OUTSIDE RECORDS SUMMARY | 2025-03-31 15:47 | XMS_ITS | Encounter Summary ---
Author Organization [facility] Address [address] [place] [address] Care Team Providers Care Erecting Engineer Name Role Phone Saji York MD Primary Care Provider +1 [phone] Encounter Details Date Type Department Care Team (Latest Contact Info) Description 11/26/2004 Outpatient Historical [facility] Medicine [address] [address] Chai Lindsay DO NO ADDRESS ON FILE ACUTE PHARYNGITIS (Primary Dx); MYALGIA AND MYOSITIS NOS; Idiopathic scoliosis; DERMATITIS NOS Social History Tobacco Use Types Packs/Day Years Used Date Smoking Tobacco: Never Assessed Sex and Gender Information Value Date Recorded Sex Assigned at Not on file 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 Gender Identity Not on file Sexual Orientation Not on file documented as of this encounter Plan of Treatment Not on file documented as of this encounter Visit Diagnoses Diagnosis Acute pharyngitis- Primary Myalgia and myositis, unspecified Mylagia and myositis, unspecified Idiopathic scoliosis Scoliosis (and kyphoscoliosis), idiopathic Contact dermatitis and other eczema, due to unspecified cause documented in this encounter Care Teams Erecting Engineer Relationship Specialty Start Date End Date Saji York MD [address] [address] PCP - General Family Practice 04/09/21 documented as of this encounter
--- OUTSIDE RECORDS SUMMARY | 2025-03-31 15:47 | XMS_ITS | Encounter Summary ---
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
--- OUTSIDE RECORDS SUMMARY | 2025-03-31 15:47 | XMS_ITS | Encounter Summary ---
Author Organization [facility] Address [address] [place] [address] Care Team Providers Care Electrician Apprentice Powerhouse Name Role Phone Saji York MD Primary Care Provider +1 [phone] Encounter Details Date Type Department Care Team (Late st Contact Info) Description 10/23/2018 [address]illary [address] 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 Exam: XR THORACIC SPINE 3 VW Date/Time of Exam: 10/23/2018 4:55 PM Reason For Exam: See Diagnosis. Diagnosis: Cervical spine pain. Comparison: None Findings: Prominent rightward curvature of the lower thoracic and upper lumbar spine and a solitary posterior stabilization hetal. Limited visualization of the intervertebral disc spaces at several levels. Overall findings suggest at least moderate multilevel degenerative changes. Clips in the left upper abdomen. Cardiomegaly. [id number] Narrative Procedure Note Irineo Lopez MD - 10/28/2018 IMPRESSION: Please see below. Exam: XR THORACIC SPINE 3 VW Date/Time of Exam: 10/23/2018 4:55 PM Reason For Exam: See Diagnosis. Diagnosis: Cervical spine pain. Comparison: None Findings: Prominent rightward curvature of the lower thoracic and upper lumbar spine and a solitary posterior stabilization hetal. Limited visualization of the intervertebral disc spaces at several levels. Overall findings suggest at least moderate multilevel degenerative changes. Clips in the left upper abdomen. Cardiomegaly. [id number] Rehan Khan Sr., WEAVER TIRE CORD DIAGNOSTIC IMAGIN G ORDERABLES Final Result * XR CERVICAL SPINE 2 OR 3 VIEWS (10/23/2018 4:55 PM GARNETT MECHANIC) Anatomical Region Laterality Modality Spine Computed Radiogr aphy 10/23/2018 4:55 PM GARNETT MECHANIC Impressions 10/26/2018 3:33 PM GARNETT MECHANIC IMPRESSION: Please see below. Exam: XR CERVICAL SPINE 2 OR 3 VIEWS Date/Time of Exam: 10/23/2018 4:55 PM Reason For Exam: See Diagnosis. Diagnosis: Cervical spine pain. Comparison: None Findings: Posterior stabilization hetal overlying the posterior upper thoracic spine. Limited visualization of the C5-C7 vertebrae secondary to overlying bone and soft tissue. The visualized cervical segments demonstrate mild degenerative change at C2-3 and C3-4. IMPRESSION: 1. Limited exam. CT correlation may be helpful. [id number] Narrative Procedure Note Irineo Lopez MD - 10/26/2018 IMPRESSION: Please see below. Exam: XR CERVICAL SPINE 2 OR 3 VIEWS Date/Time of Exam: 10/23/2018 4:55 PM Reason For Exam: See Diagnosis. Diagnosis: Cervical spine pain. Comparison: None Findings: Posterior stabilization hetal overlying the posterior upper thoracic spine. Limited visualization of the C5-C7 vertebrae secondary to overlying bone and soft tissue. The visualized cervical segments demonstrate mild degenerative change at C2-3 and C3-4. IMPRESSION: 1. Limited exam. CT correlation may be helpful. [id number] Rehan Khan Sr., WEAVER TIRE CORD DIAGNOSTIC IMAGIN G ORDERABLES Final Result documented in this encounter Visit Diagnoses Diagnosis Cervical spine pain Cervicalgia Cervical spine pain Cervicalgia Cervical spine pain Cervicalgia documented in this encounter Care Teams Electrician Apprentice Powerhouse Relationship Specialty Start Date End Date Saji York MD [address] [facility] [address] [place] [address] PCP - General Family Practice 04/09/21 documented as of this encounter
--- OUTSIDE RECORDS SUMMARY | 2025-03-31 15:47 | XMS_ITS | Encounter Summary ---
Author Organization [facility] Address [address] [place] [address] Care Team Providers Care Commercial Interior Designer Name Role Phone Saji York MD Primary Care Provider +1 [phone] Encounter Details Date Type Department Care Team (Latest Contact Info) Description 08/05/2005 Outpatient Historical [facility] Medicine- 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
--- OUTSIDE RECORDS SUMMARY | 2025-03-31 15:47 | XMS_ITS | Encounter Summary ---
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 report feedback to Dr. Wang Associated Symptoms: front of leg is red and swollen , warm to the touch, painful to touch, itches, can bear weight without pain Onset: 1 week ago Location: left leg Pain Assessment: 1 - 10 with 10 being the most severe pain painful to touch Treatment so far for current presenting problem: antibiotic ointment/ anti-itch History (Clinical Problems): (lung problems) Medications: meds reviewed per [facility] with pt Medication reactions: CODEINE <<<<<<<< TRIAGE NOTE >>>>>>>> Triage Note: Wreath Maker Michelle Bermudez added this note on Jul 17 2015 11:26PM: PHysician paged for redirection. Wreath Maker carlita added this note on Jul 18 2015 12:07AM Late Entry 5345. Answering service called and attempted to warm conference NOC RN on with physician and unable to at this time. Answering service stated they left message for physician to return call to answering service. Wreath Maker carlita added this note on Jul 18 2015 12:08AM NOC RN returned call to answering service regarding no return call from physician. Answering service again attempted to return warm conference NOC RN with physician but no answer/voicemail reached. Wreath Maker carlita added this note on Jul 18 2015 12:11AM NOC RN attempted to return call to pt to advise to seek care in ED per original disposition to see provider within 4 hours since NOC RN unable to reach physician for redirection at this time but pt did not answer(unidentified voicemail). Will attempt again to return call to pt. Wreath Maker carlita added this note on Jul 18 2015 12:21AM NOC RN was able to return call to patient by calling the other number given at time of oringally calling in [phone]. NOC RN spoke with pt's Lorraine Bangura and informed her of not able to reach physician at this time and for pt to go in and seek care tonight as per original disposition. verb understanding. <<<<<<<< TRIAGE/OUTCOME >>>>>>>> Guideline Title: Leg Non-Injury ; Leg Non-Injury Recommended Disposition: See Provider within 4 hours Original Inclination: Call Provider/See in 24 Override Disposition: Redirection Page Intended Action: Call Provider Immediately Physician Contacted: Yes New marked swelling (twice the normal size as compared to usual appearance) ? YES documented in this encounter Plan of Treatment Not on file documented as of this encounter Visit Diagnoses Not on filedocumented in this encounter Care Teams Knitted Cloth Examiner Relationship Specialty Start Date End Date Saji York MD [address] [phone] PCP - General Family Practice 04/09/21 documented as of this encounter
--- OUTSIDE RECORDS SUMMARY | 2025-03-31 15:47 | XMS_ITS | Encounter Summary ---
Author Organization [facility] Address [address] [place] [address] Care Team Providers Care Addiction Therapist Name Role Phone Saji York MD Primary Care Provider +1 [phone] Encounter Details Date Type Department Care Team (Latest Contact Info) Description 09/04/2004 Outpatient Historical [facility] Medicine [place] [address] [address] Chai Lindsay DO NO ADDRESS ON FILE MYALGIA AND MYOSITIS NOS (Primary Dx); Skin sensation disturb; Idiopathic scoliosis Social History Tobacco Use Types Packs/Day Years Used Date Smoking Tobacco: Never Assessed Sex and Gender Information Value Date Recorded Sex Assigned at Not on file 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 Gender Identity Not on file Sexual Orientation Not on file documented as of this encounter Plan of Treatment Not on file documented as of this encounter Visit Diagnoses Diagnosis Myalgia and myositis, unspecified- Primary Mylagia and myositis, unspecified Skin sensation disturb Disturbance of skin sensation Idiopathic scoliosis Scoliosis (and kyphoscoliosis), idiopathic documented in this encounter Care Teams Addiction Therapist Relationship Specialty Start Date End Date Saji York MD [address] [facility] [address] [place] [address] PCP - General Family Practice 04/09/21 documented as of this encounter
--- OUTSIDE RECORDS SUMMARY | 2025-03-31 15:47 | XMS_ITS | Encounter Summary ---
Author Organization [facility] Address [address] [place] [address] Care Team Providers Care Art Historian Name Role Phone Saji York MD Primary Care Provider +1 [phone] Encounter Details Date Type Department Care Team (Latest Contact Info) Description 12/16/2006 Outpatient Historical [facility] Medicine [address] [address] Chai Lindsay DO NO ADDRESS ON FILE Other Synovitis and Tenosynovitis (Primary Dx); Pneumonia, Organism Unspecified; Abnormal Weight Gain Social History Tobacco Use Types Packs/Day Years Used Date Smoking Tobacco: Never Assessed Sex and Gender Information Value Date Recorded Sex Assigned at Not on file 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
--- OUTSIDE RECORDS SUMMARY | 2025-03-31 15:47 | XMS_ITS | Encounter Summary ---
Author Organization [facility] Address 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 Gender Identity Not on file Sexual Orientation Not on file documented as of this encounter Plan of Treatment Upcoming Encounters Date Type Department Care Team (Late st Contact Info) Description 06/09/2025 11:20 AM CDT Office Visit [facility] [address] [address] Saji York MD [address] [place] [address] documented as of this encounter Procedures Procedure Name Priority Date/Time Associated Diagnosis Comments BASIC METABOLIC PANEL Stat 02/08/2025 10:46 AM CDT Hypokalemia documented in this encounter Results * (ABNORMAL) BASIC METABOLIC PANEL (02/08/2025 10:46 AM CDT) SODIUM 135(L) 136 - 145 mmol/L 02/08/2025 11:07 AM [facility] POTASSIUM 4.7 3.5 - 5.1 mmol/L 02/08/2025 11:07 AM [facility] CHLORIDE 98 98 - 107 mmol/L 02/08/2025 11:07 AM [facility] CO2 27 22 - 29 mmol/L 02/08/2025 11:07 AM [facility] CALCIUM 9.8 8.8 - 10.2 mg/dL 02/08/2025 11:07 AM [facility] BUN 17 8 - 23 mg/dL 02/08/2025 11:07 AM [facility] CREATININE 1.11 0.67 - 1.17 mg/dL 02/08/2025 11:07 AM [facility] GLUCOSE 167(H) 74 - 99 mg/dL 02/08/2025 11:07 AM [facility] GFR >60 >=60 mL/min/1.7 3 sq meter 02/08/2025 11:07 AM [facility] Comment:eGFR calculated with 2020 CKD-EPI equation. Vegetarian diet, extremely high or low muscle mass, and may affect results. Cystatin C with Glomerular Filtration Rate is a suitable alternative for these patients. ANION GAP 10 5 - 20 mmol/L 02/08/2025 11:07 AM CDT [facility] Blood Collection / Unknown 02/08/2025 10:46 AM CDT 02/08/2025 10:46 AM CDT Saji York MD CHEMISTRY ORDERABLES Neelam l Result [facility] CLIA # [id number] [address] [address] documented in this encounter Visit Diagnoses Diagnosis Hypokalemia Hypopotassemia documented in this encounter Care Teams Cloth Bale Header Relationship Specialty Start Date End Date Saji York MD [address] [phone] PCP - General 04/09/21 documented as of this encounter
--- OUTSIDE RECORDS SUMMARY | 2025-03-31 15:47 | XMS_ITS | Encounter Summary ---
Author Organization [facility] Address [address] [place] [address] Care Team Providers Care Franchise Broker Name Role Phone Saji York MD Primary Care Provider +1 -[phone] Encounter Details Date Type Department Care Team (Latest Contact Info) Description 09/13/2003 Outpatient Historical [facility] Medicine [address] [address] Chai Lindsay DO NO ADDRESS ON FILE ACUTE BRONCHITIS (Primary Dx) Social History Tobacco Use Types Packs/Day Years Used Date Smoking Tobacco: Never Assessed Sex and Gender Information Value Date Recorded Sex Assigned at Not on file 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
--- OUTSIDE RECORDS SUMMARY | 2025-03-31 15:47 | XMS_ITS | Encounter Summary ---
Author Organization [facility] Address [address] [place] [address] Care Team Providers Care Bridge Design Engineer Name Role Phone Saji York MD Primary Care Provider +1 [phone] Encounter Details Date Type Department Care Team (Latest Contact Info) Description 09/03/1999 Outpatient Historical [facility] [place] [address] [place] [address] Nausea with vomiting (Primary Dx); Other dyspnea and respiratory abnormality; Cough; Esophageal reflux Social History Tobacco Use Types Packs/Day Years Used Date Smoking Tobacco: Never Assessed Sex and Gender Information Value Date Recorded Sex Assigned at Not on file 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
--- OUTSIDE RECORDS SUMMARY | 2025-03-31 15:47 | XMS_ITS | Encounter Summary ---
Author Organization [facility] Address 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
--- OUTSIDE RECORDS SUMMARY | 2025-03-31 15:47 | XMS_ITS | Encounter Summary ---
Author Organization [facility] Address [address] [place] [address] Care Team Providers Care Direct Care Staffer Name Role Phone Saji York MD Primary Care Provider +1 [phone] Encounter Details Date Type Department Care Team (Latest Contact Info) Description 11/03/2003 Outpatient Historical [facility] Imaging [facility] [address] [place] [address] Tyrone Devine MD [address] [place] [address] DYSPHAGIA (Primary Dx) Social History Tobacco Use Types Packs/Day Years Used Date Smoking Tobacco: Never Assessed Sex and Gender Information Value Date Recorded Sex Assigned at Not on file 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
--- OUTSIDE RECORDS SUMMARY | 2025-03-31 15:47 | XMS_ITS | Encounter Summary ---
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
--- OUTSIDE RECORDS SUMMARY | 2025-03-31 15:47 | XMS_ITS | Encounter Summary ---
Author Organization [facility] Address [address] [place] [address] Care Team Providers Care Remote Sensing Analyst Name Role Phone Saji York MD Primary Care Provider +1 -[phone] Encounter Details Date Type Department Care Team (Latest Contact Info) Description 10/31/2003 Outpatient Historical [facility]3] Gastroenterology- [place] [address] [address] Tyrone Devine MD [address] [address] Esophageal stricture (Primary Dx); DYSPHAGIA Social History Tobacco Use Types Packs/Day Years Used Date Smoking Tobacco: Never Assessed Sex and Gender Information Value Date Recorded Sex Assigned at Not on file 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
--- OUTSIDE RECORDS SUMMARY | 2025-03-31 15:47 | XMS_ITS | Encounter Summary ---
Author Organization [facility] Address 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 Gender Identity Not on file Sexual Orientation Not on file documented as of this encounter Plan of Treatment Upcoming Encounters Date Type Department Care Team (Late Contact Info) Description 06/09/2025 11:20 AM CDT Office Visit [facility] [place] [address] [place] [phone] Saji York MD [address] [place] [address] documented as of this encounter Procedures Procedure Name Priority Date/Time Associated Diagnosis Comments CBC WITH DIFFERENTIAL Routine 09/05/2023 3:44 PM CDT Dizziness and giddiness COMPREHENSIVE METABOLIC PANEL Routine 09/05/2023 3:44 PM CDT Dizziness and giddiness documented in this encounter Results * (ABNORMAL) COMPREHENSIVE METABOLIC PANEL (09/05/2023 3:44 PM CDT) SODIUM 139 136 - 145 mmol/L 09/05/2023 4:05 PM [facility] POTASSIUM 3.8 3.5 - 5.1 mmol/L 09/05/2023 4:05 PM [facility] CHLORIDE 100 98 - 107 mmol/L 09/05/2023 4:05 PM [facility] CO2 32(H) 22 - 29 mmol/L 09/05/2023 4:05 PM [facility] CALCIUM 9.1 8.8 - 10.2 mg/dL 09/05/2023 4:05 PM [facility] BUN 19 8 - 23 mg/dL 09/05/2023 4:05 PM [facility] CREATININE 1.02 0.67 - 1.17 mg/dL 09/05/2023 4:05 PM [facility] GLUCOSE 109(H) 74 - 99 mg/dL 09/05/2023 4:05 PM [facility] TOTAL PROTEIN 6.9 6.6 - 8.7 g/dL 09/05/2023 4:05 PM [facility] ALBUMIN 4.0 3.5 - 5.2 g/dL 09/05/2023 4:05 PM [facility] BILIRUBIN TOTAL 0.2 <=1.2 mg/dL 09/05/2023 4:05 PM [facility] ALKALINE PHOSPHATASE 92 40 - 129 U/L 09/05/2023 4:05 PM [facility] AST 13 10 - 50 U/L 09/05/2023 4:05 PM [facility] ALT 15 10 - 50 U/L 09/05/2023 4:05 PM [facility] GFR >60 >=60 mL/min/1.7 3 sq meter 09/05/2023 4:05 PM [facility] Comment:eGFR calculated with 2020 CKD-EPI equation. Vegetarian diet, extremely high or low muscle mass, and may affect results. Cystatin C with Glomerular Filtration Rate is a suitable alternative for these patients. ANION GAP 7(L) 12 - 20 mmol/L 09/05/2023 4:05 PM [facility] Blood 09/05/2023 3:44 PM CDT 09/05/2023 3:44 PM CDT us Cheri Davidson LYMPHEDEMA THERAPIST CHEMISTRY ORDERABLES Fin al Result [facility] # [id number] [address] [place] [address] * (ABNORMAL) CBC WITH DIFFERENTIAL (09/05/2023 3:44 PM CDT) WBC 7.3 4.2 - 9.1 K/uL 09/05/2023 3:48 PM [facility] RBC 4.26(L) 4.63 - 6.08 M/uL 09/05/2023 3:48 PM [facility] HEMOGLOBIN 12.3(L) 13.7 - 17.5 g/dL 09/05/2023 3:48 PM [facility] HEMATOCRIT 40.0(L) 40.1 - 51.0 % 09/05/2023 3:48 PM [facility] MCV 93.9(H) 79.0 - 92.2 fL 09/05/2023 3:48 PM [facility] MCH 28.9 25.7 - 32.2 pg 09/05/2023 3:48 PM [facility] MCHC 30.8(L) 32.3 - 36.5 g/dL 09/05/2023 3:48 PM [facility] RDW 12.8 11.0 - 14.5 % 09/05/2023 3:48 PM [facility] RDW-STDEV 43.5 36.9 - 56.9 fL 09/05/2023 3:48 PM [facility] PLATELETS 214 130 - 400 K/uL 09/05/2023 3:48 PM [facility] MPV 9.3(L) 10.0 - 14.8 fL 09/05/2023 3:48 PM [facility] NEUTROPHILS 59 34 - 68 % 09/05/2023 3:48 PM [facility] LYMPHOCYTES 25 22 - 53 % 09/05/2023 3:48 PM [facility] MONOCYTES 13(H) 5 - 12 % 09/05/2023 3:48 PM [facility] EOSINOPHILS 2 1 - 7 % 09/05/2023 3:48 PM [facility] BASOPHILS 1 0 - 1 % 09/05/2023 3:48 PM [facility] IMMATURE GRANULOCYTES 0 % 09/05/2023 3:48 PM [facility] NEUTROPHIL ABSOLUTE 4.31 1.78 - 5.38 K/uL 09/05/2023 3:48 PM [facility] LYMPHOCYTE ABSOLUTE 1.82 1.20 - 3.40 K/uL 09/05/2023 3:48 PM [facility] MONOCYTE ABSOLUTE 0.92(H) 0.30 - 0.82 K/uL 09/05/2023 3:48 PM [facility] EOSINOPHIL ABSOLUTE 0.16 0.04 - 0.54 K/uL 09/05/2023 3:48 PM [facility] BASOPHILS ABSOLUTE 0.04 0.01 - 0.08 K/uL 09/05/2023 3:48 PM CDT [facility] IMMATURE GRANULOCYTES ABSOLUTE 0.02 K/uL 09/05/2023 3:48 PM CDT [facility] Blood 09/05/2023 3:44 PM CDT 09/05/2023 3:44 PM CDT us Cheri Stewart Stuart LYMPHEDEMA THERAPIST HEMATOLOGY ORDERABLES Fi nal Result [facility] CLIA # [id number] [address] [facility] 60 [place] [address] documented in this encounter Visit Diagnoses Diagnosis Dizziness and giddiness documented in this encounter Care Teams On Site Manager Relationship Specialty Start Date End Date Saji York MD [address] [facility] 60 [place] [address] PCP - General 04/09/21 documented as of this encounter
--- OUTSIDE RECORDS SUMMARY | 2025-03-31 15:47 | XMS_ITS | Encounter Summary ---
Author Organization [facility] Address [address] [place] [address] Care Team Providers Care Ore Miner Blasting Name Role Phone Saji York MD Primary Care Provider +1 -[phone] Encounter Details Date Type Department Care Team (Latest Contact Info) Description 10/31/2003 Outpatient Historical [facility] Endoscopy [address] [place] 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
--- OUTSIDE RECORDS SUMMARY | 2025-03-31 15:47 | XMS_ITS | Encounter Summary ---
Author Organization [facility] Address [address] [place] [address] Care Team Providers Care Media Consultant Name Role Phone Saji York MD Primary Care Provider +1 -[phone] Encounter Details Date Type Department Care Team (Latest Contact Info) Description 10/10/1998 Outpatient Historical [facility] Medicine [address] [address] Jg Vidal MD [address] [phone] Esophageal reflux (Primary Dx) Social History Tobacco Use Types Packs/Day Years Used Date Smoking Tobacco: Never Assessed Sex and Gender Information Value Date Recorded Sex Assigned at Not on file 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
--- OUTSIDE RECORDS SUMMARY | 2025-03-31 15:47 | XMS_ITS | Encounter Summary ---
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 Exam: XR FOOT 3+ VW RIGHT Date/Time of Exam: 08/13/2018 4:20 PM Reason For Exam: See Diagnosis. Diagnosis: Acute foot pain, right. Comparison: None FINDINGS: PA, lateral and oblique projections show no fracture or dislocation. Mild calcaneal enthesopathy. Mild diffuse soft tissue swelling, nonspecific. Narrative Procedure Note True Vasquez, DO - 08/14/2018 IMPRESSION: Please see below. Exam: XR FOOT 3+ VW RIGHT Date/Time of Exam: 08/13/2018 4:20 PM Reason For Exam: See Diagnosis. Diagnosis: Acute foot pain, right. Comparison: None FINDINGS: PA, lateral and oblique projections show no fracture or dislocation. Mild calcaneal enthesopathy. Mild diffuse soft tissue swelling, nonspecific. Rehan Khan Sr., ASSOCIATE ENGINEER DIAGNOSTIC IMAGIN G ORDERABLES Final Result documented in this encounter Visit Diagnoses Diagnosis Acute foot pain, right Acute foot pain, right documented in this encounter Care Teams Lumber Sorter Relationship Specialty Start Date End Date Saji York MD [address] [phone] PCP - General Family Practice 04/09/21 documented as of this encounter
--- OUTSIDE RECORDS SUMMARY | 2025-03-31 15:47 | XMS_ITS | Encounter Summary ---
Author Organization [facility] Address [address] [place] [address] Care Team Providers Care Graining Machine Operator Name Role Phone Saji York MD Primary Care Provider +1 -[phone] Encounter Details Date Type Department Care Team (Latest Contact Info) Description 10/19/[address] 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
--- OUTSIDE RECORDS SUMMARY | 2025-03-31 15:47 | XMS_ITS | Encounter Summary ---
Author Organization [facility] Address [address] [place] [address] Care Team Providers Care Strategic Partnership Manager Name Role Phone Saji York MD Primary Care Provider +1 -[phone] Encounter Details Date Type Department Care Team (Latest Contact Info) Description 09/10/2004 Outpatient Historical [facility] Medicine [place] [address] [address] Chai Lindsay DO NO ADDRESS ON FILE MYALGIA AND MYOSITIS NOS (Primary Dx); Idiopathic scoliosis Social History Tobacco Use Types Packs/Day Years Used Date Smoking Tobacco: Never Assessed Sex and Gender Information Value Date Recorded Sex Assigned at Not on file 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
--- OUTSIDE RECORDS SUMMARY | 2025-03-31 15:47 | XMS_ITS | Encounter Summary ---
Author Organization [facility] Address [address] [place] [address] Care Team Providers Care Surgical Physician Assistant Name Role Phone Saji York MD Primary Care Provider +1 -[phone] Encounter Details Date Type Department Care Team (Latest Contact Info) Description 03/15/2003 Outpatient Historical [facility] Medicine [address] [address] Chai Lindsay DO NO ADDRESS ON FILE BACKACHE NOS (Primary Dx); ESOPHAGEAL REFLUX; ABN BLOOD CHEMISTRY NEC Social History Tobacco Use Types Packs/Day Years Used Date Smoking Tobacco: Never Assessed Sex and Gender Information Value Date Recorded Sex Assigned at Not on file 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
--- OUTSIDE RECORDS SUMMARY | 2025-03-31 15:47 | XMS_ITS | Encounter Summary ---
Author Organization [facility] Address [address] [place] [address] Care Team Providers Care Antiquer Name Role Phone Saji York MD Primary Care Provider +1 -[phone] Encounter Details Date Type Department Care Team (Latest Contact Info) Description 10/01/2004 Outpatient Historical [facility] Medicine [address] [address] Chai Lindsay DO NO ADDRESS ON FILE Skin sensation disturb (Primary Dx); BACKACHE NOS; MYALGIA AND MYOSITIS NOS Social History Tobacco Use Types Packs/Day Years Used Date Smoking Tobacco: Never Assessed Sex and Gender Information Value Date Recorded Sex Assigned at Not on file 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
--- OUTSIDE RECORDS SUMMARY | 2025-03-31 15:47 | XMS_ITS | Encounter Summary ---
Author Organization [facility] Address 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 Gender Identity Not on file Sexual Orientation Not on file documented as of this encounter Plan of Treatment Upcoming Encounters Date Type Department Care Team (Late Contact Info) Description 06/09/2025 11:20 AM CDT Office Visit [facility] Medicine [place] [address] [phone] Saji York MD [address] [address] documented as of this encounter Procedures Procedure Name Priority Date/Time Associated Diagnosis Comments COMPREHENSIVE METABOLIC PANEL Routine 03/31/2025 12:15 PM CDT documented in this encounter Results * COMPREHENSIVE METABOLIC PANEL (03/31/2025 12:15 PM CDT) Blood us Abstract Provider CHEMISTRY ORDERABLES Final Res ult documented in this encounter Visit Diagnoses Not on filedocumented in this encounter Care Teams Chemist Relationship Specialty Start Date End Date Saji York MD [address] [address] PCP - General 04/09/21 documented as of this encounter
--- OUTSIDE RECORDS SUMMARY | 2025-03-31 15:47 | XMS_ITS | Encounter Summary ---
Author Organization [facility] Address [address] [place] [address] Care Team Providers Care Taper Operator Name Role Phone Saji York MD Primary Care Provider +1 -[phone] Encounter Details Date Type Department Care Team (Latest Contact Info) Description 01/10/[address] 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
--- OUTSIDE RECORDS SUMMARY | 2025-03-31 15:47 | XMS_ITS | Encounter Summary ---
Author Organization [facility] Address [address] [place] [address] Care Team Providers Care Sap Integration Architect Name Role Phone Saji York MD Primary Care Provider +1 -[phone] Encounter Details Date Type Department Care Team (Latest Contact Info) Description 10/15/2005 Outpatient Historical [facility] Family Medicine- [place] [facility] [address] [place] [address] Chai Lindsay, NO ADDRESS ON FILE CARPAL TUNNEL SYNDROME (Primary Dx); ACUTE BRONCHITIS; LUMBAGO Social History Tobacco Use Types Packs/Day Years Used Date Smoking Tobacco: Never Assessed Sex and Gender Information Value Date Recorded Sex Assigned at Not on file 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
--- OUTSIDE RECORDS SUMMARY | 2025-03-31 15:47 | XMS_ITS | Encounter Summary ---
Author Organization [facility] Address 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 Susan Landa LPN, 03/29/2025 9:07 AM * Telephone Encounter - Carlos Alberto Vega - 03/29/2025 9:03 AM CDT Copied from [facility] #[id number]. Topic: [id number] Call >> March 29, 2025 9:02 AM Carlos Alberto Willett wrote: Caller is requesting to speak with Clinical Care Team. Caller Name: Emilee ramirez/ [facility] (Home Health) Callback Number: [phone] Clinician Type: Home Health Co-worker Call Notes: Emilee states that she is faxing over a clarified order for a wheelchair evaluation. She is requesting that be signed and faxed back to [phone]. Is this addressing an immediate patient care need? No documented in this encounter Plan of Treatment Upcoming Encounters Date Type Department Care Team (Late st Contact Info) Description 06/09/2025 11:20 AM CDT Office Visit [facility] [address] [address] Saji York MD [address] [address] documented as of this encounter Visit Diagnoses Not on filedocumented in this encounter Care Teams Billing Coordinator Relationship Specialty Start Date End Date Saji York MD [address] [address] PCP - General 04/09/21 documented as of this encounter
--- OUTSIDE RECORDS SUMMARY | 2025-03-31 15:47 | XMS_ITS | Encounter Summary ---
Author Organization [email or web address] Address [address] [place] [address] Care Team Providers Care Elevator Tender Name Role Phone Saji York MD Primary Care Provider +1 [phone] Encounter Details Date Type Department Care Team (Late st Contact Info) Description 07/14/2024 Lab Requisition [facility] Laboratory Services [place] [address] [facility] [address] [place] [address] Cheri Davidson, [facility] [address] [place] [address] Shortness of breath Social History Tobacco Use Types Packs/Day Years [...] who hurts you emotionally and/or physically? 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 Gender Identity Not on file Sexual Orientation Not on file documented as of this encounter Plan of Treatment Upcoming Encounters Date Type Department Care Team (Late st Contact Info) Description 06/09/2025 11:20 AM CDT Office Visit [facility] [address] [address] Saji York MD [address] [place] [address] documented as of this encounter Procedures Procedure Name Priority Date/Time Associated Diagnosis Comments DIFFERENTIAL, MANUAL Stat 07/14/2024 11:45 AM CDT Shortness of breath CBC WITH DIFFERENTIAL Stat 07/14/2024 11:45 AM CDT Shortness of breath BRAIN NATRIURETIC PEPTIDE, BNP OR PROBNP Stat 07/14/2024 11:45 AM CDT Shortness of breath COMPREHENSIVE METABOLIC PANEL Stat 07/14/2024 11:45 AM CDT Shortness of breath documented in this encounter Results * MANUAL DIFFERENTIAL (07/14/2024 11:45 AM CDT) PLATELET EST. Adequate 07/14/2024 12:01 PM CDT [facility] RBC MORPHOLOGY Normal 07/14/2024 12:01 PM CDT [facility] Blood Collection / Unknown 07/14/2024 11:45 AM CDT 07/14/2024 11:45 AM CDT Cheri Davidson FEED GRINDER HEMATOLOGY ORDERABLES CO M Final Result [facility] CLIA # [id number] [address] [address] * BRAIN NATRIURETIC PEPTIDE, BNP OR PROBNP (07/14/2024 11:45 AM CDT) PROBNP, N TERMINAL 60 0 - 125 pg/mL 07/14/2024 12:11 PM [facility] Blood 07/14/2024 11:4 5 AM CDT 07/14/2024 11:45 AM CDT Cheri Davidson FEED GRINDER CHEMISTRY ORDERABLES Fin al Result [facility] CLIA # [id number] [address] [place] [address] * (ABNORMAL) COMPREHENSIVE METABOLIC PANEL (07/14/2024 11:45 AM CDT) SODIUM 136 136 - 145 mmol/L 07/14/2024 12:11 PM [facility] POTASSIUM 4.2 3.5 - 5.1 mmol/L 07/14/2024 12:11 PM [facility] CHLORIDE 99 98 - 107 mmol/L 07/14/2024 12:11 PM [facility] CO2 32(H) 22 - 29 mmol/L 07/14/2024 12:11 PM [facility] CALCIUM 9.2 8.8 - 10.2 mg/dL 07/14/2024 12:11 PM [facility] BUN 16 8 - 23 mg/dL 07/14/2024 12:11 PM [facility] CREATININE 1.15 0.67 - 1.17 mg/dL 07/14/2024 12:11 PM [facility] GLUCOSE 148(H) 74 - 99 mg/dL 07/14/2024 12:11 PM [facility] TOTAL PROTEIN 6.8 6.6 - 8.7 g/dL 07/14/2024 12:11 PM [facility] ALBUMIN 3.6 3.5 - 5.2 g/dL 07/14/2024 12:11 PM [facility] BILIRUBIN TOTAL <0.2 <=1.2 mg/dL 07/14/2024 12:11 PM [facility] ALKALINE PHOSPHATASE 88 40 - 129 U/L 07/14/2024 12:11 PM [facility] AST 15 10 - 50 U/L 07/14/2024 12:11 PM [facility] ALT 17 10 - 50 U/L 07/14/2024 12:11 PM [facility] GFR >60 >=60 mL/min/1.7 3 sq meter 07/14/2024 12:11 PM [facility] Comment:eGFR calculated with 2020 CKD-EPI equation. Vegetarian diet, extremely high or low muscle mass, and may affect results. Cystatin C with Glomerular Filtration Rate is a suitable alternative for these patients. ANION GAP 5(L) 12 - 20 mmol/L 07/14/2024 12:11 PM [facility] Blood 07/14/2024 11:4 5 AM CDT 07/14/2024 11:45 AM CDT Cheri Davidson FEED GRINDER CHEMISTRY ORDERABLES Fin al Result [facility] CLIA # [id number] [address] [place] [address] * (ABNORMAL) CBC WITH DIFFERENTIAL (07/14/2024 11:45 AM CDT) WBC 5.8 4.2 - 9.1 K/uL 07/14/2024 12:01 PM [facility] RBC 3.86(L) 4.63 - 6.08 M/uL 07/14/2024 12:01 PM [facility] HEMOGLOBIN 11.2(L) 13.7 - 17.5 g/dL 07/14/2024 12:01 PM [facility] HEMATOCRIT 36.9(L) 40.1 - 51.0 % 07/14/2024 12:01 PM [facility] MCV 95.6(H) 79.0 - 92.2 fL 07/14/2024 12:01 PM [facility] MCH 29.0 25.7 - 32.2 pg 07/14/2024 12:01 PM [facility] MCHC 30.4(L) 32.3 - 36.5 g/dL 07/14/2024 12:01 PM [facility] RDW 13.3 11.0 - 14.5 % 07/14/2024 12:01 PM [facility] RDW-STDEV 46.7 36.9 - 56.9 fL 07/14/2024 12:01 PM [facility] PLATELETS 107(L) 130 - 400 K/uL 07/14/2024 12:01 PM [facility] MPV 10.9 10.0 - 14.8 fL 07/14/2024 12:01 PM [facility] NEUTROPHILS 58 34 - 68 % 07/14/2024 12:01 PM [facility] LYMPHOCYTES 26 22 - 53 % 07/14/2024 12:01 PM [facility] MONOCYTES 12 5 - 12 % 07/14/2024 12:01 PM [facility] EOSINOPHILS 2 1 - 7 % 07/14/2024 12:01 PM [facility] BASOPHILS 1 0 - 1 % 07/14/2024 12:01 PM [facility] IMMATURE GRANULOCYTES 1 % 07/14/2024 12:01 PM [facility] NEUTROPHIL ABSOLUTE 3.36 1.78 - 5.38 K/uL 07/14/2024 12:01 PM [facility] LYMPHOCYTE ABSOLUTE 1.53 1.20 - 3.40 K/uL 07/14/2024 12:01 PM [facility] MONOCYTE ABSOLUTE 0.69 0.30 - 0.82 K/uL 07/14/2024 12:01 PM [facility] EOSINOPHIL ABSOLUTE 0.14 0.04 - 0.54 K/uL 07/14/2024 12:01 PM [facility] BASOPHILS ABSOLUTE 0.04 0.01 - 0.08 K/uL 07/14/2024 12:01 PM [facility] IMMATURE GRANULOCYTES ABSOLUTE 0.05 K/uL 07/14/2024 12:01 PM [facility] Blood Collection / Unknown 07/14/2024 11:45 AM CDT 07/14/2024 11:45 AM CDT Cheri Stewart Stuart FEED GRINDER HEMATOLOGY ORDERABLES Fi nal Result [facility] CLIA # [id number] [address] [address] documented in this encounter Visit Diagnoses Diagnosis Shortness of breath documented in this encounter Care Teams Elevator Tender Relationship Specialty Start Date End Date Saji York MD [address] [phone] PCP - General 04/09/21 documented as of this encounter
--- OUTSIDE RECORDS SUMMARY | 2025-03-31 15:47 | XMS_ITS | Encounter Summary ---
Author Organization [facility] Address [address] [place] [address] Care Team Providers Care Civil Engineer In Training Name Role Phone Saji York MD Primary Care Provider [phone] [phone] Encounter Details Date Type Department Care Team (Latest Contact Info) Description 07/27/2003 Outpatient Historical [facility] [address] 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
--- OUTSIDE RECORDS SUMMARY | 2025-03-31 15:47 | XMS_ITS | Encounter Summary ---
Author Organization [facility] Address [address] [place] [address] Care Team Providers Care Case Planner Name Role Phone Saji York MD Primary Care Provider +1 [phone] Encounter Details Date Type Department Care Team (Latest Contact Info) Description 03/15/[address] 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
--- OUTSIDE RECORDS SUMMARY | 2025-03-31 15:47 | XMS_ITS | Encounter Summary ---
Author Organization [facility] Address [address] [place] [address] Care Team Providers Care General Repair Mechanic Name Role Phone Saji York MD Primary Care Provider [phone] Encounter Details Date Type Department Care Team (Latest Contact Info) Description 07/27/2003 Outpatient Historical [facility] Emergency Department [address] [place] [phone] Ranjana Randall MD NO ADDRESS ON FILE CHEST PAIN NEC (Primary Dx) Social History Tobacco Use Types Packs/Day Years Used Date Smoking Tobacco: Never Assessed Sex and Gender Information Value Date Recorded Sex Assigned at Not on file 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
--- OUTSIDE RECORDS SUMMARY | 2025-03-31 15:47 | XMS_ITS | Encounter Summary ---
Author Organization [facility] Address [address] [place] [address] Care Team Providers Care Photographic Enlarger Operator Name Role Phone Saji York MD Primary Care Provider +1 [phone] Encounter Details Date Type Department Care Team (Late st Contact Info) Description 09/22/2024 Lab Requisition [facility] Laboratory Services [place] [address] [facility] [address] [place] [address] Cheri Davidson, [facility] [address] [place] [address] Pain in right arm Social History Tobacco Use Types Packs/Day Years [...] on file Legal Sex Male 12:35 AM SHOE TREER Gender Identity Not on file Sexual Orientation Not on file documented as of this encounter Plan of Treatment Upcoming Encounters Date Type Department Care Team (Late st Contact Info) Description 06/09/2025 11:20 AM CDT Office Visit [facility] [address] [address] Saji York MD [address] [place] [phone] documented as of this encounter Procedures Procedure Name Priority Date/Time Associated Diagnosis Comments DIFFERENTIAL, MANUAL Stat 09/22/2024 12:51 PM SHOE TREER Pain in right arm CBC WITH DIFFERENTIAL Stat 09/22/2024 12:51 PM SHOE TREER Pain in right arm C-REACTIVE PROTEIN Stat 09/22/2024 12 :51 PM SHOE TREER Pain in right arm TROPONIN Stat 09/22/2024 12:51 PM SHOE TREER Pain in right arm COMPREHENSIVE METABOLIC PANEL Stat 09/22/2024 12:51 PM SHOE TREER Pain in right arm documented in this encounter Results * MANUAL DIFFERENTIAL (09/22/2024 12:51 PM SHOE TREER) PLATELET EST. Consistent w Count 09/22/2024 1:14 PM SHOE TREER [facility] ANISOCYTOSIS 1+ /hpf 09/22/2024 1:14 PM SHOE TREER [facility] MACROCYTES 1+ /hpf 09/22/2024 1:14 PM SHOE TREER [facility] HYPOCHROMIA 1+ /hpf 09/22/2024 1:14 PM [facility] Blood Collection / Unknown 09/22/2024 12:51 PM SHOE TREER 09/22/2024 12:52 PM SHOE TREER [facility] - 09/22/2024 1:14 PM SHOE TREER Smear reviewed. Findings consistent with automated results. Cheri Davidson PATCH WASHER HEMATOLOGY ORDERABLES CO M Final Result [facility] [id number] [address] [place] [address] * (ABNORMAL) C-REACTIVE PROTEIN (09/22/2024 12:51 PM SHOE TREER) CRP 16.1(H) <5.0 mg/L 09/22/2024 1:16 PM [facility] Blood Collection / Unknown 09/22/2024 12:51 PM SHOE TREER 09/22/2024 12:52 PM SHOE TREER Cheri Davidson PATCH WASHER CHEMISTRY ORDERABLES Fin al Result Performing Organization Address [facility]/ZIP Co de Phone Number [facility] [id number] [address] [place] [address] * (ABNORMAL) COMPREHENSIVE METABOLIC PANEL (09/22/2024 12:51 PM SHOE TREER) Pathologist [facility] SODIUM 137 136 - 145 mmol/L 09/22/2024 1:16 PM [facility] POTASSIUM 3.9 3.5 - 5.1 mmol/L 09/22/2024 1:16 PM [facility] CHLORIDE 99 98 - 107 mmol/L 09/22/2024 1:16 PM [facility] CO2 30(H) 22 - 29 mmol/L 09/22/2024 1:16 PM [facility] CALCIUM 9.1 8.8 - 10.2 mg/dL 09/22/2024 1:16 PM [facility] BUN 20 8 - 23 mg/dL 09/22/2024 1:16 PM [facility] CREATININE 1.01 0.67 - 1.17 mg/dL 09/22/2024 1:16 PM [facility] GLUCOSE 169(H) 74 - 99 mg/dL 09/22/2024 1:16 PM [facility] TOTAL PROTEIN 6.8 6.6 - 8.7 g/dL 09/22/2024 1:16 PM [facility] ALBUMIN 3.6 3.5 - 5.2 g/dL 09/22/2024 1:16 PM [facility] BILIRUBIN TOTAL 0.2 <=1.2 mg/dL 09/22/2024 1:16 PM [facility] ALKALINE PHOSPHATASE 93 40 - 129 U/L 09/22/2024 1:16 PM [facility] AST 12 10 - 50 U/L 09/22/2024 1:16 PM [facility] ALT 20 10 - 50 U/L 09/22/2024 1:16 PM [facility] GFR >60 >=60 mL/min/1.7 3 sq meter 09/22/2024 1:16 PM [facility] Comment:eGFR calculated with 2020 CKD-EPI equation. Vegetarian diet, extremely high or low muscle mass, and may affect results. Cystatin C with Glomerular Filtration Rate is a suitable alternative for these patients. ANION GAP 8(L) 12 - 20 mmol/L 09/22/2024 1:16 PM [facility] Blood Collection / Unknown 09/22/2024 12:51 PM SHOE TREER 09/22/2024 12:52 PM SHOE TREER Cheri Davidson PATCH WASHER CHEMISTRY ORDERABLES Fin al Result [facility] [id number] [address] [place] [address] * (ABNORMAL) CBC WITH DIFFERENTIAL (09/22/2024 12:51 PM SHOE TREER) WBC 9.1 4.2 - 9.1 K/uL 09/22/2024 1:14 PM [facility] RBC 4.61(L) 4.63 - 6.08 M/uL 09/22/2024 1:14 PM [facility] HEMOGLOBIN 12.9(L) 13.7 - 17.5 g/dL 09/22/2024 1:14 PM [facility] HEMATOCRIT 43.8 40.1 - 51.0 % 09/22/2024 1:14 PM [facility] MCV 95.0(H) 79.0 - 92.2 fL 09/22/2024 1:14 PM [facility] MCH 28.0 25.7 - 32.2 pg 09/22/2024 1:14 PM [facility] MCHC 29.5(L) 32.3 - 36.5 g/dL 09/22/2024 1:14 PM [facility] RDW 13.2 11.0 - 14.5 % 09/22/2024 1:14 PM [facility] RDW-STDEV 45.6 36.9 - 56.9 fL 09/22/2024 1:14 PM [facility] PLATELETS 202 130 - 400 K/uL 09/22/2024 1:14 PM [facility] MPV 9.4(L) 10.0 - 14.8 fL 09/22/2024 1:14 PM [facility] NEUTROPHILS 73(H) 34 - 68 % 09/22/2024 1:14 PM [facility] LYMPHOCYTES 17(L) 22 - 53 % 09/22/2024 1:14 PM [facility] MONOCYTES 8 5 - 12 % 09/22/2024 1:14 PM [facility] EOSINOPHILS 1 1 - 7 % 09/22/2024 1:14 PM [facility] BASOPHILS 0 0 - 1 % 09/22/2024 1:14 PM [facility] IMMATURE GRANULOCYTES 1 % 09/22/2024 1:14 PM [facility] NEUTROPHIL ABSOLUTE 6.63(H) 1.78 - 5.38 K/uL 09/22/2024 1:14 PM [facility] LYMPHOCYTE ABSOLUTE 1.54 1.20 - 3.40 K/uL 09/22/2024 1:14 PM [facility] MONOCYTE ABSOLUTE 0.74 0.30 - 0.82 K/uL 09/22/2024 1:14 PM [facility] EOSINOPHIL ABSOLUTE 0.13 0.04 - 0.54 K/uL 09/22/2024 1:14 PM SHOE TREER [facility] BASOPHILS ABSOLUTE 0.04 0.01 - 0.08 K/uL 09/22/2024 1:14 PM SHOE TREER [facility] IMMATURE GRANULOCYTES ABSOLUTE 0.05 K/uL 09/22/2024 1:14 PM SHOE TREER [facility] Blood Collection / Unknown 09/22/2024 12:51 PM SHOE TREER 09/22/2024 12:52 PM SHOE TREER Cheri Davidson [facility] HEMATOLOGY ORDERABLES Fi nal Result Performing Organization Address [facility]/ZIP Co de Phone Number [facility] CLIA # [id number] [address] [place] [address] * TROPONIN (09/22/2024 12:51 PM SHOE TREER) TROPONIN T, 5TH GEN 12 <=15 ng/L 09/22/2024 1:16 PM SHOE TREER [facility] Blood Collection / Unknown 09/22/2024 12:51 PM SHOE TREER 09/22/2024 12:52 PM SHOE TREER Narrative [facility] - 09/22/2024 1:16 PM SHOE TREER Troponin Detectable but normal range. Cheri Stewart Stuart PATCH WASHER CHEMISTRY ORDERABLES Fin al Result Performing Organization Address [facility]/ZIP Co de Phone Number [facility] CLIA # [id number] [address] [place] [phone] documented in this encounter Visit Diagnoses Diagnosis Pain in right arm documented in this encounter Care Teams Photographic Enlarger Operator Relationship Specialty Start Date End Date Saji York MD [address] [phone] PCP - General 04/09/21 documented as of this encounter
--- OUTSIDE RECORDS SUMMARY | 2025-03-31 15:47 | XMS_ITS | Encounter Summary ---
Author Organization [facility] Address [address] [place] [address] Care Team Providers Care Driver Manager Name Role Phone Saji York MD Primary Care Provider [phone] Encounter Details Date Type Department Care Team (Latest Contact Info) Description 01/18/2003 Outpatient Historical [facility] Medicine [address] [address] Chai Lindsay DO NO ADDRESS ON FILE ABN BLOOD CHEMISTRY NEC (Primary Dx); FLUID OVERLOAD Social History Tobacco Use Types Packs/Day Years Used Date Smoking Tobacco: Never Assessed Sex and Gender Information Value Date Recorded Sex Assigned at Not on file 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
--- OUTSIDE RECORDS SUMMARY | 2025-03-31 15:48 | XMS_ITS | Encounter Summary ---
Author Organization [facility] Address [address] [place] [address] Care Team Providers Care Boat Carpenter Name Role Phone Saji York MD Primary Care Provider [phone] Encounter Details Date Type Department Care Team (Latest Contact Info) Description 09/15/1998 Outpatient Historical [facility] Family Medicine- [place] [facility] [address] [place] [phone] Balbina Ruiz NO ADDRESS ON FILE Pneumonia, organism unspecified(486) (Primary Dx) Social History Tobacco Use Types Packs/Day Years Used Date Smoking Tobacco: Never Assessed Sex and Gender Information Value Date Recorded Sex Assigned at Not on file 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
--- OUTSIDE RECORDS SUMMARY | 2025-03-31 15:48 | XMS_ITS | Encounter Summary ---
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
--- OUTSIDE RECORDS SUMMARY | 2025-03-31 15:48 | XMS_ITS | Encounter Summary ---
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
--- OUTSIDE RECORDS SUMMARY | 2025-03-31 15:48 | XMS_ITS | Clinical Summary ---
Author Organization [facility] Address [address] [place] [address] Care Team Providers Care Electrical Lineman Name Role Phone Saji York MD Primary Care Provider [phone] Allergies Active Allergy Reactions Criticality Noted Date Comments Codeine Hives,Rash High 12/04/2023 Medications oxygen home deliveryIndicatio ns:Nocturnal hypoxia,Chronic obstructive pulmonary disease, unspecified COPD type (CMS/HCC),Chronic respiratory failure with hypoxia (CMS/HCC) Home Oxygen Concentrator yes at 0 L/M Rest, 0 L/M Activity, 2 L/M Sleep, Delivery Device: Nasal CannulaPortabi lity: no, 0 L/M Rest, 0 L/M Activity, May provide device best for patient needs(E system,home fill, conserving device)Length of Need: 99 months 1 Each 0 020 Active albuterol sulfate 90 mcg/Actuation inhaler Take 2 Puffs by inhalation every 4 hours as needed. Active ipratropium bromide (ATROVENT) 0.02 % SolutionIndicatio ns:Chronic obstructive pulmonary disease, unspecified COPD type (CMS/HCC) Take 2.5 mL (0.5 mg) by inhalation every 12 hours as needed for Shortness of Breath. 62.5 mL 2 017 Active bisacodyL (DULCOLAX) 5 mg Tablet Take by mouth daily in the morning. Active magnesium oxide 250 mg magnesium Tablet Take by mouth daily. Active atorvastatin (LIPITOR) 40 mg tablet Active lactulose (ENULOSE) 10 gram/15 mL (15 mL) Solution Take 15 mL by mouth daily. 473 mL 5 022 Active mupirocin (BACTROBAN) 2 % OintmentIndicatio ns:Pressure injury of sacral region, stage 2 (CMS/HCC) Apply to affected area daily. 30 Gram 2 022 Active Foam Bandage (Tendra Mepilex Border) 4 X 4 BandageIndication s:Pressure injury of sacral region, stage 2 (CMS/HCC) Apply to sacral wound daily 30 Each 2 Active hydrocortisone acetate (ANUSOL-HC) 25 mg Suppository Insert 1 Suppository (25 mg) by rectum 2 times daily as needed for Itching or Discomfort. 10 Suppository 2 022 Active sennosides-docusa te sodium (SENNA-S) 8.6-50 mg tablet Take 2 Tablets by mouth 2 times daily as needed for Constipation. 60 Tablet 5 022 Active cetirizine (ZyrTEC) 10 mg tabletIndications :Chronic obstructive pulmonary disease, unspecified COPD type (CMS/HCC) Take 1 Tablet (10 mg) by mouth daily. 30 Tablet 5 022 Active Miscellaneous Medical SupplyIndications :Acquired deformity of left upper arm,Reduced mobility,Primary osteoarthritis involving multiple joints Lift Chair 1 Each 022 Active nebulizer Length of need 99 months Nebulizer with compressor, Kit: Disposable Nebulizer Kit, 2 per month, filters , areosol mask: No. Name of Medication albuterol 1 Each 023 Active albuterol (PROVENTIL,VENTOL IN) 2.5 mg /3 mL (0.083 %) Solution for Nebulization 3 mL (2.5 mg) by See Admin Instructions route every 6 hours as needed for Shortness of Breath. 360 mL 5 023 Active ranolazine ER (RANEXA) 500 mg Extended Release 12 hour tablet Take 1 Tablet (500 mg) by mouth [address] [place] 180 Tablet 1 023 Active prochlorperazine maleate (COMPAZINE) 5 mg tabletIndications :Nausea Take 1 Tablet (5 mg) by mouth every 6 hours as needed for Nausea/Emesis. 120 Tablet 3 023 Active bumetanide (BUMEX) 2 mg tabletIndications :Chronic diastolic congestive heart failure (CMS/HCC) Take 1 Tablet (2 mg) by mouth daily. Separate by 7 30 Tablet 5 024 Active Miscellaneous Medical SupplyIndications :Chronic respiratory failure with hypoxia and hypercapnia (CMS/HCC),Chronic obstructive pulmonary disease, unspecified COPD type (CMS/HCC),Disorde rs of diaphragm High-frequency chest wall auscultation use AffloVest for 30 minutes twice daily 1 Each 024 Active spironolactone (ALDACTONE) 25 mg tablet Take 25 mg by mouth 2 times daily. 024 Active acetaZOLAMIDE (DIAMOX) 250 mg tabletIndications :Chronic diastolic congestive heart failure (CMS/HCC) Take 1 Tablet (250 mg) by mouth daily. 90 Tablet 1 024 Active fluticasone propionate (FLONASE) 50 mcg/spray [place], Suspension nasal inhalerIndication s:Chronic obstructive pulmonary disease, unspecified COPD type (CMS/HCC) Administer 2 Sprays in each nostril daily. 16 Gram 11 024 Active torsemide (DEMADEX) 10 mg Tablet Take 10 mg by mouth daily. Active Breztri Aerosphere 160 mcg-9mcg-4.8mcg/a ctuation HFA aerosol inhaler INHALE 2 PUFFS TWICE DAILY. USE WITH SPACER. RINSE MOUTH AND THROAT AFTER USE 024 Active guaiFENesin (MUCINEX) 600 mg Extended Release Biphasic tabletIndications :Upper respiratory tract infection, unspecified type Take 1 Tablet (600 mg) by mouth 2 times daily. 60 Tablet 11 024 Active ipratropium-albut Madiha (DUONEB) 0.5 mg-3 mg(2.5 mg base)/3 mL Solution for Nebulization USE 1 AMPULE IN NEBULIZER THREE TIMES DAILY Active sodium chloride 7 % Solution for Nebulization INHALE 1 VIAL THREE TIMES DAILY 024 Active fluticasone propion-salmetero L (ADVAIR DISKUS,WIXELA INHUB) 250-50 mcg/dose disk inhaler INHALE 1 PUFF BY MOUTH TWICE DAILY. RINSE MOUTH AND THROAT AFTER USE. Active traZODone (DESYREL) 100 mg tabletIndications :Primary insomnia Take 1-2 Tablets (100-200 mg) by mouth daily at bedtime. 180 Tablet 3 025 Active metOLazone (ZAROXOLYN) 5 mg tablet Take 1 Tablet (5 mg) by mouth daily. Start at the onset of increased leg swelling for up to 7 days take 30 minutes prior to first diuretic of the day 7 Tablet 5 025 Active ondansetron (ZOFRAN ODT) 4 mg Tablet, Rapid DissolveIndicatio ns:Gastroesophage al reflux disease, unspecified whether esophagitis present Take 1 Tablet (4 mg) by mouth every 8 hours as needed for Nausea/Emesis. Dissolve tablet on top of tongue, then swallow with saliva. 30 Tablet 2 025 Active omeprazole (PriLOSEC) 40 mg Capsule, Delayed Release(E.C.)Yojana cations:Gastroeso phageal reflux disease, unspecified whether esophagitis present Take 1 Capsule (40 mg) by mouth daily. 90 Capsule 3 025 Active benzonatate (TESSALON) 100 mg capsuleIndication s:Obesity hypoventilation syndrome (CMS/HCC),Chronic respiratory failure with hypoxia and hypercapnia (CMS/HCC) Take 1 Capsule (100 mg) by mouth 3 times daily as needed for Cough. 30 Capsule 2 025 Active potassium chloride (K-TAB) 20 mEq Extended Release tablet Take 2 Tablets (40 mEq) by mouth 3 times daily with meals. 180 Tablet 5 025 Active HYDROcodone-aceta minophen (NORCO) 5-325 mg tabletIndications :Kyphoscoliosis,P rimary osteoarthritis involving multiple joints,Chronic midline low back pain without sciatica Take 1 Tablet by mouth every 8 hours as needed for Pain, Moderate. 21 Tablet 025 Active triamcinolone acetonide (KENALOG) 0.1 % Ointment Apply to affected area 2 times daily. 80 Gram 2 025 Active semaglutide (Ozempic) 0.25 mg or 0.5 mg (2 mg/3 mL) Pen InjectorIndicatio ns:Type 2 diabetes mellitus with other circulatory complication, without long-term current use of insulin ([facility]),Type 2 diabetes mellitus with hyperglycemia, without long-term current use of insulin ([facility]) Inject 0.5 mg by subcutaneous injection every 7 days. 3 mL 5 025 Active power wheelchairIndicat ions:Type 2 diabetes mellitus with other circulatory complication, without long-term current use of insulin ([facility]),Morbid obesity with body mass index of 40.0-49.9 ([facility]),Obesity hypoventilation syndrome ([facility]),Mucopur ulent chronic bronchitis ([facility]),Chronic combined systolic and diastolic congestive heart failure ([facility]),Chronic respiratory failure with hypoxia and hypercapnia ([facility]),Type 2 diabetes mellitus with hyperglycemia, without long-term current use of insulin ([facility]),Acquire d deformity of left upper arm,Kyphoscoliosi s,Oxygen dependent Face to Face completed within 6 months: yes Length of Need: 99 months Proceed with PT/OT consultation for mobility evaluation 1 Each Active power wheelchairIndicat ions:Chronic congestive heart failure, unspecified heart failure type ([facility]),Chronic respiratory failure with hypoxia and hypercapnia ([facility]),Chronic obstructive pulmonary disease, unspecified COPD type ([facility]),Morbid obesity with body mass index of 40.0-49.9 ([facility]),Obesity hypoventilation syndrome ([facility]),Acquire d deformity of left upper arm,Dependence on other enabling machines and devices,Kyphoscol iosis,Oxygen dependent,History of falling,Gait instability Power mobility device and 2 batteries with oxygen lange Face to Face completed within 6 months: yes Length of Need: 99 months 1 Each 022 03/04 Discontinued semaglutide (Ozempic) 0.25 mg or 0.5 mg (2 mg/3 mL) Pen InjectorIndicatio ns:Type 2 diabetes mellitus with other circulatory complication, without long-term current use of insulin ([facility]) Inject 0.25 mg by subcutaneous injection every 7 days. 3 mL 5 025 03/04 Discontinued power wheelchairIndicat ions:Type 2 diabetes mellitus with other circulatory complication, without long-term current use of insulin ([facility]),Morbid obesity with body mass index of 40.0-49.9 ([facility]),Obesity hypoventilation syndrome ([facility]),Mucopur ulent chronic bronchitis ([facility]),Chronic combined systolic and diastolic congestive heart failure ([facility]),Chronic respiratory failure with hypoxia and hypercapnia ([facility]),Type 2 diabetes mellitus with hyperglycemia, without long-term current use of insulin ([facility]),Acquire d deformity of left upper arm,Kyphoscoliosi s,Oxygen dependent Face to Face completed within 6 months: yes Length of Need: 99 months Proceed with PT/OT consultation for mobility evaluation 1 Each 025 03/04 Discontinued Active Problems Problem Noted Date Diagnosed Date Diabetes mellitus 03/04/2025 Type 2 diabetes mellitus wit h hyperglycemia, without long-term current use of insulin 02/03/2025 Hypokalemia 01/13/2025 MARINA (acute kidney injury) 01/13/2025 Declined influenza vaccine 09/08/2024 Stable angina 01/02/2023 Primary osteoarthritis involving multiple joints 10/17/2022 Reduced mobility 10/17/2022 Venous stasis dermatitis of both lower extremiti es 06/21/2022 Oxygen dependent 04/04/2022 History of falling 04/04/2022 Dependence on other enabling machines and device s 03/11/2022 Primary insomnia 03/11/2022 Chronic constipation 03/11/2022 CELESTE (obstructive sleep apnea) 01/14/2022 Obesity hypoventilation syndrome 10/05/2020 Polycythemia 10/05/2020 Nocturnal hypoxia 09/14/2020 Chronic respiratory failure with hypoxia and hyp ercapnia 09/14/2020 Chronic congestive heart failure 05/05/2020 [facility] prescription opiate use 05/21/2019 Morbid obesity with body mass index of 40.0-49.9 05/21/2019 ED (erectile dysfunction) 02/10/2018 Tobacco abuse, 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 Overview (03/15/2021): Quit in 80s Chronic low back pain 11/12/2012 Overview (03/15/2021): S/P Multiple back surgeries Mucopurulent chronic bronchitis Esophageal reflux Acquired deformity of arm Kyphoscoliosis Resolved Problems Problem Noted Date Diagnosed Date Resolved Date Prediabetes 06/05/2020 03/04/2025 Obesity (BMI 35.0-39.9 without comorbidity) 03/18/2013 08/03/2020 Elevated LFTs 11/12/2012 01/05/2018 Overview (03/14/2021): CMP: 04/28 S/P appendectomy 05/19/2012 11/12/2012 Seroma complicating a procedure 05/12/2012 05/19/2012 Acute appendicitis without m ention of peritonitis 04/27/2012 05/19/2012 Pain in joint, shoulder region 02/21/2011 12/06/2011 Weight reduction 01/23/2010 03/04/2025 Hyperglycemia 11/12/2012 Encounters Date Type Department Care Team Description 03/31/2025 Orders Only [address] [address] Provider, Abstract 03/29/[address] [address] Provider, Abstract 03/29/[address] [address] Saji York MD Provider Call 03/14/[address] [phone] Provider, Abstract 03/14/[address] [address] Saji York MD Patient Communication; referral ; Needs Orders Written 03/08/2025 External Device Data STL ABSTRACTION Provider, Abstract 03/04/2025 11:40 AM CDT Office Visit [address] [phone] Saji York MD Morbid obesity with body mass index of 40.0-49.9 (Primary Dx); Type 2 diabetes mellitus with other circulatory complication, without long-term current use of insulin ([facility]/HCC); Obesity hypoventilation syndrome; Mucopurulent chronic bronchitis (CMS/HCC); Chronic combined systolic and diastolic congestive heart failure ([facility]/HCC); Chronic respiratory failure with hypoxia and hypercapnia; Type 2 diabetes mellitus with hyperglycemia, without long-term current use of insulin ([facility]/HCC); Acquired deformity of left upper arm; Kyphoscoliosis; Oxygen dependent 02/23/[address] [address] StuartCheri watts FNP 02/18/2025 External Device Data Initial Department [address] [place] [address] Dr ELLIS: [place] [address] Gil Calabrese Md 02/08/2025 10:30 AM CDT - 02/08/2025 11:59 PM CDT Hospital Encounter [facility] [place] [address] [phone] Saji York MD Discharge Disposition: Home or Self Care 02/08/2025 Results Follow-Up [address] [address] Saji York MD BASIC METABOLIC PANEL 02/08/2025 Lab Requisition [facility] [place] [address] [address] Saji York MD Hypokalemia 02/08/2025 Orders Only [address] [address] Saji York MD Hypokalemia (Primary Dx); Hyponatremia 02/04/[address] [address] Saji York MD Needs Orders Written 02/03/2025 2:20 PM CDT - 02/03/2025 11:59 PM CDT Hospital Encounter [facility] [place] [address] [address] Saji York MD Discharge Disposition: Home or Self Care 02/03/2025 1:20 PM CDT Office Visit [address] [address] Saji York MD Type 2 diabetes mellitus with hyperglycemia, without long-term current use of insulin (CMS/HCC) (Primary Dx); Chronic combined systolic and diastolic congestive heart failure (CMS/HCC); Hypokalemia 02/03/2025 Orders Only [address] [address] Saji York MD Hypokalemia (Primary Dx); Hyponatremia 02/03/2025 Results Follow-Up [address] [address] Saji York MD BASIC METABOLIC PANEL 02/03/2025 Lab Requisition [facility] [place] [address] [place] [address] Saji York MD Type 2 diabetes mellitus with hyperglycemia (CMS/HCC) 01/31/[address] [address] Saji York MD Wants Appointment 01/27/2025 Orders Only [facility] Information [facility] [address] [place] [address] Provider, Abstract 01/24/[address] [address] Provider, Abstract 01/24/[address] [address] Provider, Abstract 01/19/2025 External Device Data STL ABSTRACTION Provider, Abstract 01/19/[address] [address] Saji York MD Provider Call 01/19/2025 External Device Data STL ABSTRACTION Provider, Abstract 01/18/2025 3:00 PM WEBSPHERE CONSULTANT Office Visit [address] [place] [address] Saji York MD Type 2 diabetes mellitus with other circulatory complication, without long-term current use of insulin ([facility]) (Primary Dx); Hypokalemia; Kyphoscoliosis; Primary osteoarthritis involving multiple joints; Chronic midline low back pain without sciatica; Chronic respiratory failure with hypoxia and hypercapnia 01/18/2025 External Device Data STL ABSTRACTION Provider, Abstract 01/18/[address] [place] [address] Provider, Abstract 01/18/[address] [place] [address] Provider, Abstract 01/17/2025 2:05 PM WEBSPHERE CONSULTANT Procedure visit [address] [place] [address] Hyperglycemia; Hypokalemia 01/17/2025 External Device Data Initial Department [address] ELLIS: [place] [address] Gil [facility] 01/14/[address] [address] Saji York MD Advice Only 01/14/[address] [place] [address] Saji York MD ER Follow Up 01/14/2025 Orders Only [address] [place] [address] Saji York MD Hyperglycemia (Primary Dx); Hypokalemia 01/13/2025 1:06 PM WEBSPHERE CONSULTANT - 01/13/2025 6:24 PM WEBSPHERE CONSULTANT Emergency [facility] [address] [address] Trevor Mandel MD Hypokalemia (Primary Dx); MARINA (acute kidney injury) Discharge Disposition: Home or Self Care 01/13/2025 Travel 01/13/2025 Results Follow-Up [address] [address] Saji York MD XR CHEST PA AND LATERAL 2 VW, CBC WITH DIFFERENTIAL 01/13/2025 Orders Only [address] [phone] Saji York MD 01/13/[address] [phone] Saji York MD Provider Call 01/13/[address] [phone] Saji York MD Provider Call 01/12/2025 Abstract [facility] [address] [place] [address] Provider, Abstract 01/10/2025 4:27 PM WEBSPHERE CONSULTANT - 01/10/2025 11:59 PM WEBSPHERE CONSULTANT Hospital Encounter [facility] [address] [phone] Saji York MD Discharge Disposition: Home or Self Care 01/10/2025 3:20 PM WEBSPHERE CONSULTANT Office Visit [address] [phone] Saji York MD Chronic combined systolic and diastolic congestive heart failure (CMS/HCC) (Primary Dx); Obesity hypoventilation syndrome; Chronic respiratory failure with hypoxia and hypercapnia; Morbid obesity with body mass index of 40.0-49.9; Gastroesophageal reflux disease, unspecified whether esophagitis present 01/10/[address] [phone] Saji York MD Clinical Consult Before Scheduling 01/10/[address] [phone] Saji York MD Patient Communication 01/05/[address] [phone] Saji York MD Clinical Consult Before Scheduling from Last 3 Months Immunizations Immunization Administration Dates Next Due (ADACEL/BOOSTRIX)(10 YR UP) TDAP VACCINE, 0.5ML, IM 03/17/2019 (TDVAX)(7 YRS UP) TETANUS AN D DIPHTHERIA [...] Smoke Exposure: Past Smokeless Tobacco: Current Chew Tobacco Cessation:Ready to Q uit: No; Counseling Given: Yes Comments:Quit smoking: smoked 10 yrs. Quit 1998 but now chews [...] on file Legal Sex Male 12:35 AM WEBSPHERE CONSULTANT Gender Identity Not on file Sexual Orientation Not on file Last Filed Vital Signs Vital Sign Reading Time Taken Comments Blood Pressure 120/78 03/04/2025 11:30 AM CDT Pulse 80 03/04/2025 11:30 AM CDT Temperature 36.2 C (97.1 F) 03/04/2025 11:30 AM CDT Respiratory Rate 20 03/04/2025 11:30 AM CDT Oxygen Saturation 99% 03/04/2025 11:30 AM CDT 2L Inhaled Oxygen Concentration - - Weight 103 kg (227 lb) 03/04/2025 11:30 AM CDT Height 152.4 cm (5') 03/04/2025 11:30 AM CDT Body Mass Index 44.33 03/04/2025 11:30 AM CDT Plan of Treatment Upcoming Encounters Date Type Department Care Team (Late st Contact Info) Description 06/09/2025 11:20 AM CDT Office Visit [address] [phone] Saji York MD [address] [address] Health Maintenance Due Date Last Done Comments DIABETES ANNUAL FOOT EXAM 1974 DIABETES ANNUAL RETINAL EXAM 1974 DIABETES MICROALBUMIN ANNUAL SCREEN 1974 PNEUMOCOCCAL VACCINE 50+ YEA RS (1 of 2 - PCV) 1975 FIT/FOBT Q 1 year 2001 Flex Sig/CT Colonography Q 5 years 2001 ZOSTER VACCINE (1 of 2) 2006 RSV VACCINE (60+ or ) (1 - Risk 60-74 years 1-dose series) 2016 Abdominal Aortic Aneurysm (A AA) Screening 2021 LDL CHOLESTEROL ANNUAL 07/10/2023 , 03/05/2022, 01/29/2020, Additional history exists FIT-DNA Q 3 years 05/03/2024 05/03/2021 CARMINA uACR (Auto Order) 11/17/2024 05/21/2024 Medicare [place] ([place]) Preventative Visit/Annual Wellness Visit 11/17/2024 DIABETES HBA1C Q 6 MONTHS 07/20/20252024, 04/09/2021, 04/09/2021, Additional history exists DIABETES: A1C (Auto Order) 01/17/202601/17, 04/09/2021, 04/09/2021, Additional history exists DTAP/TDAP/TD VACCINES (2 - T d or Tdap) 03/17/2029 03/17/2019, 09/19/2008, 09/23/1989 COLORECTAL SCREENING 06/21/2031 06/21/2024, 06/21/2024, 06/21/2024, Additional history exists Colorectal Cancer Screening 06/21/2031 INFLUENZA VACCINE Completed 09/08/2024, , 09/23/2023, Additional history exists KHE eGFR (Auto Order) Completed 03/31/2025 , 02/08/2025, 02/03/2025, Additional history exists Procedures Procedure Name Priority Date/Time Associated Diagnosis Comments COMPREHENSIVE METABOLIC PANEL Routine 03/31/2025 12:15 PM CDT BASIC METABOLIC PANEL Stat 02/08/2025 10:46 AM CDT Hypokalemia BASIC METABOLIC PANEL Stat 02/03/2025 2:40 PM CDT Type 2 diabetes mellitus with hyperglycemia (CMS/[facility]) COMPREHENSIVE METABOLIC PANEL Routine 01/26/2025 10:14 AM CDT BASIC METABOLIC PANEL Routine 01/17/2025 2:06 PM WEBSPHERE CONSULTANT Hypokalemia HEMOGLOBIN A1C Routine 01/17/2025 2:06 PM WEBSPHERE CONSULTANT Hyperglycemia POTASSIUM LEVEL Stat 01/13/2025 5:55 PM WEBSPHERE CONSULTANT EKG 12-LEAD Stat 01/13/2025 1:38 PM WEBSPHERE CONSULTANT MAGNESIUM LEVEL Stat 01/13/2025 1:20 PM WEBSPHERE CONSULTANT COMPREHENSIVE METABOLIC PANEL Stat 01/13/2025 1:20 PM WEBSPHERE CONSULTANT CBC WITH DIFFERENTIAL Stat 01/13/2025 1:20 PM WEBSPHERE CONSULTANT COMPREHENSIVE METABOLIC PANEL Routine 01/13/2025 11:44 AM WEBSPHERE CONSULTANT XR CHEST PA AND LATERAL 2 VW Routine 01/10/2025 4:39 PM WEBSPHERE CONSULTANT Chronic combined systolic and diastolic congestive heart failure (CMS/HCC) Obesity hypoventilation syndrome Chronic respiratory failure with hypoxia and hypercapnia CBC WITH DIFFERENTIAL Routine 01/10/2025 4:12 PM WEBSPHERE CONSULTANT Chronic combined systolic and diastolic congestive heart failure (CMS/HCC) Obesity hypoventilation syndrome Chronic respiratory failure with hypoxia and hypercapnia COMPREHENSIVE METABOLIC PANEL Routine 01/10/2025 4:12 PM WEBSPHERE CONSULTANT Chronic combined systolic and diastolic congestive heart failure (CMS/HCC) Obesity hypoventilation syndrome Chronic respiratory failure with hypoxia and hypercapnia COLONOSCOPY REPORT 06/21/2024 3: 14 PM CDT LIPID PANEL Routine 07/10/2022 COLON CANCER SCREEN, STOOL DNA Routine 05/03/2021 12:00 AM CDT from Last 3 Months or Most Recently Relevant to Health Maintenance Results * COMPREHENSIVE METABOLIC PANEL (03/31/2025 12:15 PM CDT) Only the most recent of5 resultswithin the time period is included. Blood us Abstract Provider CHEMISTRY ORDERABLES Final Res ult * (ABNORMAL) BASIC METABOLIC PANEL (02/08/2025 10:46 AM CDT) Only the most recent of3 resultswithin the time period is included. SODIUM 135(L) 136 - 145 mmol/L 02/08/2025 11:07 AM CDT [facility] POTASSIUM 4.7 3.5 - 5.1 mmol/L 02/08/2025 11:07 AM T [facility] CHLORIDE 98 98 - 107 mmol/L 02/08/2025 11:07 AM T [facility] CO2 27 22 - 29 mmol/L 02/08/2025 11:07 AM T [facility] CALCIUM 9.8 8.8 - 10.2 mg/dL 02/08/2025 11:07 AM T [facility] BUN 17 8 - 23 mg/dL 02/08/2025 11:[address] [facility] CREATININE 1.11 0.67 - 1.17 mg/dL 02/08/2025 11:[address] [facility] GLUCOSE 167(H) 74 - 99 mg/dL 02/08/2025 11:[address] [facility] GFR >60 >=60 mL/min/1.7 3 sq meter 02/08/2025 11:[address] [facility] Comment:eGFR calculated with 2020 CKD-EPI equation. Vegetarian diet, extremely high or low muscle mass, and may affect results. Cystatin C with Glomerular Filtration Rate is a suitable alternative for these patients. ANION GAP 10 5 - 20 mmol/L 02/08/2025 11:[address] [facility] Blood Collection / Unknown 02/08/2025 10:46 AM CDT 02/08/2025 10:46 AM CDT Saji York MD CHEMISTRY ORDERABLES Neelam l Result [facility] CLIA # [id number] [address] [place] [address] * (ABNORMAL) HEMOGLOBIN A1C (01/17/2025 2:06 PM WEBSPHERE CONSULTANT) HEMOGLOBIN A1C 7.6(H) <5.7 % of total Hgb [facility] Comment: For someone without known diabetes, a hemoglobin A1c value of 6.5% or greater indicates that they may have diabetes and this should be confirmed with a follow-up test. For someone with known diabetes, a value <7% indicates that their diabetes is well controlled and a value greater than or equal to 7% indicates suboptimal control. A1c targets should be individualized based on duration of diabetes, age, comorbid conditions, and other considerations. Currently, no consensus exists regarding use of hemoglobin A1c for diagnosis of diabetes for children. ESTIMATED AVERAGE GLUCOSE (MG/DL) 171 mg/dL [facility] ESTIMATED AVERAGE GLUCOSE (MMOL/L) 9.5 mmol/L [facility] Comment: Test Performed at: [facility] [address] [place] [address] Sagar Salgado MD Blood 01/17/2025 2:06 PM WEBSPHERE CONSULTANT 01/18/2025 6:45 AM WEBSPHERE CONSULTANT us Saji York MD CHEMISTRY ORDERABLES Neelam l Result Performing Organization Address City/[facility]/ZIP Co de Phone Number [facility] [phone] [facility] [address] [place] [address] * POTASSIUM LEVEL (01/13/2025 5:55 PM WEBSPHERE CONSULTANT) POTASSIUM 4.1 3.5 - 5.1 mmol/L 01/13/2025 6:08 PM WEBSPHERE CONSULTANT [facility] Comment:Slightly hemolyzed. Result may be falsely elevated. Blood BLOOD SPECIMEN / Unknown Collection / Unknown 01/13/2025 5:55 PM WEBSPHERE CONSULTANT 01/13/2025 6:01 PM WEBSPHERE CONSULTANT us Trevor Mandel MD CHEMISTRY ORDERABLES Final Resu lt Performing Organization Address City/[facility]/ZIP Co de Phone Number [facility] CLIA # [id number] [address] [place] [address] * EKG 12 lead (01/13/2025 1:38 PM WEBSPHERE CONSULTANT) Narrative Trevor Mandel MD - 01/13/2025 1:38 PM WEBSPHERE CONSULTANT Trevor Mandel MD 01/13/2025 6:34 PM EKG 12 lead Date/Time: 01/13/2025 1:38 PM Performed by: Trevor Mandel MD Authorized by: Trevor Mandel MD ECG interpreted by ED Physician 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 BBB: Right Hypertrophy: D[place]TON QRSTT: QRSTT changes: Yes Comments: Nonspecific ST segment abnormalities. Flattened T waves. No inversions of T waves noted. Trevor Mandel MD ECG ORDERABLES Final Result * (ABNORMAL) CBC WITH DIFFERENTIAL (01/13/2025 1:20 PM WEBSPHERE CONSULTANT) Only the most recent of2 resultswithin the time period is included. WBC 10.8(H) 4.2 - 9.1 K/uL 01/13/2025 1:30 PM [facility] RBC 4.19(L) 4.63 - 6.08 M/uL 01/13/2025 1:30 PM [facility] HEMOGLOBIN 12.5(L) 13.7 - 17.5 g/dL 01/13/2025 1:30 PM [facility] HEMATOCRIT 37.7(L) 40.1 - 51.0 % 01/13/2025 1:30 PM [facility] MCV 90.0 79.0 - 92.2 fL 01/13/2025 1:30 PM [facility] MCH 29.8 25.7 - 32.2 pg 01/13/2025 1:30 PM [facility] MCHC 33.2 32.3 - 36.5 g/dL 01/13/2025 1:30 PM [facility] RDW 13.4 11.0 - 14.5 % 01/13/2025 1:30 PM [facility] RDW-STDEV 43.9 36.9 - 56.9 fL 01/13/2025 1:30 PM [facility] PLATELETS 255 130 - 400 K/uL 01/13/2025 1:30 PM [facility] MPV 9.3(L) 10.0 - 14.8 fL 01/13/2025 1:30 PM [facility] NEUTROPHILS 71(H) 34 - 68 % 01/13/2025 1:30 PM [facility] LYMPHOCYTES 17(L) 22 - 53 % 01/13/2025 1:30 PM [facility] MONOCYTES 9 5 - 12 % 01/13/2025 1:30 PM [facility] EOSINOPHILS 1 1 - 7 % 01/13/2025 1:30 PM WEBSPHERE CONSULTANT [facility] BASOPHILS 1 0 - 1 % 01/13/2025 1:30 PM [facility] IMMATURE GRANULOCYTES 1 % 01/13/2025 1:30 PM [facility] NEUTROPHIL ABSOLUTE 7.70(H) 1.78 - 5.38 K/uL 01/13/2025 1:30 PM [facility] LYMPHOCYTE ABSOLUTE 1.87 1.20 - 3.40 K/uL 01/13/2025 1:30 PM WEBSPHERE CONSULTANT [facility] MONOCYTE ABSOLUTE 0.99(H) 0.30 - 0.82 K/uL 01/13/2025 1:30 PM [facility] EOSINOPHIL ABSOLUTE 0.11 0.04 - 0.54 K/uL 01/13/2025 1:30 PM [facility] BASOPHILS ABSOLUTE 0.05 0.01 - 0.08 K/uL 01/13/2025 1:30 PM [facility] IMMATURE GRANULOCYTES ABSOLUTE 0.07 K/uL 01/13/2025 1:30 PM [facility] Blood BLOOD SPECIMEN / Unknown Collection / Unknown 01/13/2025 1:20 PM WEBSPHERE CONSULTANT 01/13/2025 1:24 PM WEBSPHERE CONSULTANT us Trevor Mandel MD HEMATOLOGY ORDERABLES Final Res ult [id number] [address] [place] [address] * MAGNESIUM LEVEL (01/13/2025 1:20 PM WEBSPHERE CONSULTANT) MAGNESIUM 2.4 1.6 - 2.4 mg/dL 01/13/2025 1:46 PM WEBSPHERE CONSULTANT [facility] Blood BLOOD SPECIMEN / Unknown Collection / Unknown 01/13/2025 1:20 PM WEBSPHERE CONSULTANT 01/13/2025 1:24 PM WEBSPHERE CONSULTANT us Trevor Mandel MD CHEMISTRY ORDERABLES Final Resu lt [facility] CLIA # [id number] [address] [place] [address] * XR CHEST PA AND LATERAL 2 VW (01/10/2025 4:39 PM WEBSPHERE CONSULTANT) Anatomical Region Laterality Modality Chest Computed Radiogr aphy 01/10/2025 4:39 PM WEBSPHERE CONSULTANT Impressions 01/11/2025 6:33 AM WEBSPHERE CONSULTANT IMPRESSION: Please see below. Exam: XR CHEST PA AND LATERAL 2 VW Date/Time of Exam: 01/10/2025 4:39 PM Reason For Exam: See Diagnosis. Diagnosis: Chronic combined systolic and diastolic congestive heart failure (CMS/HCC); Obesity hypoventilation syndrome (CMS/HCC); Chronic respiratory failure with hypoxia and hypercapnia (CMS/HCC); Chronic respiratory failure with hypoxia and hypercapnia (CMS/HCC). Findings: Comparison study 09/30/2024. Stable pattern of diminished lung volumes and enlarged cardiac silhouette. No gross concerning consolidating airspace disease, pleural effusion or pneumothorax. Stable spinal hardware. Narrative Procedure Note Hilary Luo MD - 01/11/2025 IMPRESSION: Please see below. Exam: XR CHEST PA AND LATERAL 2 VW Date/Time of Exam: 01/10/2025 4:39 PM Reason For Exam: See Diagnosis. Diagnosis: Chronic combined systolic and diastolic congestive heart failure (CMS/HCC); Obesity hypoventilation syndrome (CMS/HCC); Chronic respiratory failure with hypoxia and hypercapnia (CMS/HCC); Chronic respiratory failure with hypoxia and hypercapnia (CMS/HCC). Findings: Comparison study 09/30/2024. Stable pattern of diminished lung volumes and enlarged cardiac silhouette. No gross concerning consolidating airspace disease, pleural effusion or pneumothorax. Stable spinal hardware. us Saji York MD DIAGNOSTIC IMAGING ORDERA BLES Final Result * COLONOSCOPY REPORT (06/21/2024 3:14 PM CDT) Narrative Procedure Note Wilver Denson MD - 06/21/2024 3:14 PM CDT [facility] GI Patient Name: Sukumar Bangura Procedure Date: 06/21/2024 Date of : 1955 Admit Type: Outpatient Age: 69 Attending MD: Wilver Denson , , Procedure: Colonoscopy Indications: Rectal bleeding Providers: Wilver Denson Referring MD: Saji York Medicines: Monitored Anesthesia Care Complications: No immediate complications. Procedure: After I obtained informed consent, the scope was passed under direct vision. Throughout the procedure, the patient's blood pressure, pulse, and oxygen saturations were monitored continuously. The Colonoscope was introduced through the anus and advanced to the cecum, identified by appendiceal orifice and ileocecal valve. The colonoscopy was performed without difficulty. The patient tolerated the procedure well. The quality of the bowel preparation was evaluated using the BBPS ([place]ondo Bowel Preparation Scale) with scores of: Right Colon = 2 (minor amount of residual staining, small fragments of stool and/or opaque liquid, but mucosa seen well), Transverse Colon = 3 (entire mucosa seen well with no residual staining, small fragments of stool or opaque liquid) and Left Colon = 3 (entire mucosa seen well with no residual staining, small fragments of stool or opaque liquid). The total BBPS score equals 8. The quality of the bowel preparation was good. Estimated Blood Loss: Estimated blood loss was minimal. Findings: Internal hemorrhoids were found. The hemorrhoids were large. A 4 mm polyp was found in the ascending colon. The polyp was sessile. The polyp was removed with a cold snare. Resection and retrieval were complete. Scattered small-mouthed diverticula were found in the sigmoid colon. No additional abnormalities were found on retroflexion. Impression: - Internal hemorrhoids. - One 4 mm polyp in the ascending colon, removed with a cold snare. Resected and retrieved. - Diverticulosis in the sigmoid colon. Recommendation: - Await pathology results. Fiber recommended for hemorrhoids. Wilver Denson, 06/21/2024 3:14:01 PM Number of Addenda: 0 Note Initiated On: 06/21/2024 2:37 PM Scope Withdrawal Time 0 hours 7 minutes 12 seconds Scope In: 2:47:39 PM Scope Out: 2:59:42 PM [address] [place], [place] Wilver Denson MD GI PROCEDURE ORDERABLES Final Result * LIPID PANEL (07/10/2022) ABSTRACTED CHOLESTEROL 168 ABSTRACTED TRIGLYCERIDE 84 ABSTRACTED HDL 49 ABSTRACTED LDL CALCULATED 102 Blood 07/10/2022 us Abstract Provider CHEMISTRY ORDERABLES Final Res ult * COLON CANCER SCREEN, STOOL DNA (05/03/2021 12:00 AM CDT) COLOGUARD RESULT Negative Negative 05/09/20 2:33 PM CDT [facility] Comment: NEGATIVE TEST RESULT. A negative Cologuard [...] screened with both Cologuard and colonoscopy. (Xiomara Francis al, N Engl J Med 2014;370(14):3961-9166) The normal value (reference range) for this assay is negative. COLOGUARD RE-SCREENING RECOMMENDATION: Periodic colorectal cancer screening is an important part of preventive healthcare for asymptomatic individuals at average risk for colorectal cancer. Following a negative Cologuard result, the [place] Cancer Society and U.S. Multi-Society Task Force screening guidelines recommend a Cologuard re-screening interval of 3 years. References: [place] [employer] Guideline for Colorectal Cancer Screening: https://www.cancer.org/cancer/bxbcb-szykxh-xaxzdn/wmctoxrcl-nwjpgazqa-xdisrng/ac s-rec ommendations.html.; Geraldo GODDARD, Jeison CR, Ximena ROSE, Colorectal Cancer Screening: Recommendations for Physicians and Patients from the U.S. Multi-Society Task Force on Colorectal Cancer Screening , Am J Gastroenterology 2017; 112:6513-8686. TEST DESCRIPTION: Composite algorithmic analysis of stool [...] screened with both Cologuard and colonoscopy. (Xiomara Francis al, N Engl J Med 2014;370(14):7631-6870.) Cologuard may produce a false negative or false positive result (no colorectal cancer or precancerous polyp present at colonoscopy follow up). A negative Cologuard test result does not guarantee the absence of CRC or advanced adenoma (pre-cancer). The current Cologuard screening interval is every 3 years. ([place] Cancer Society and U.S. Multi-Society Task Force). Cologuard performance data in a 10,000 patient pivotal study using colonoscopy as the reference method can be accessed at the following location: www.[employer]ego/results. Additional description of the Cologuard test process, warnings and precautions can be found at www.QuickGiftsrd.com. Stool STOOL SPECIMEN / Unknown 05/03/2021 05/05/2021 12:24 AM CDT Saji York MD BODY FLUIDS AND STOOLS Fi nal Result [facility] CLIA # [id number] [address], [address] [place] [address] from Last 3 Months or Most Recently Relevant to Health Maintenance Insurance MEDICAID [place] [employer] [facility] [id number] Advance Directives For more information, please contact: [phone] * Full Code (Latest Code Status on File) Date Activated Date Inactivated Comments 06/21/2024 1:13 PM 06/21/2024 6:08 PM Care Teams Electrical Lineman Relationship Specialty Start Date End Date Saji York MD [address] [facility] [address] [place] [phone] PCP - General 04/09/21
--- OUTSIDE RECORDS SUMMARY | 2025-03-31 15:48 | XMS_ITS | Encounter Summary ---
Author Organization [facility] Address 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 Gender Identity Not on file Sexual Orientation Not on file documented as of this encounter Plan of Treatment Upcoming Encounters Date Type Department Care Team (Late st Contact Info) Description 06/09/2025 11:20 AM CDT Office Visit [facility] [address] [place] [phone] Saji York MD [address] [place] [address] documented as of this encounter Procedures Procedure Name Priority Date/Time Associated Diagnosis Comments CBC WITH DIFFERENTIAL Stat 12/19/2023 12:50 PM SASH MAKER Dyspnea, unspecified C-REACTIVE PROTEIN Stat 12/19/2023 12 :50 PM SASH MAKER Dyspnea, unspecified COMPREHENSIVE METABOLIC PANEL Stat 12/19/2023 12:50 PM SASH MAKER Dyspnea, unspecified documented in this encounter Results * (ABNORMAL) COMPREHENSIVE METABOLIC PANEL (12/19/2023 12:50 PM SASH MAKER) SODIUM 140 136 - 145 mmol/L 12/19/2023 1:26 PM [facility] POTASSIUM 3.6 3.5 - 5.1 mmol/L 12/19/2023 1:26 PM [facility] CHLORIDE 100 98 - 107 mmol/L 12/19/2023 1:26 PM [facility] CO2 34(H) 22 - 29 mmol/L 12/19/2023 1:26 PM [facility] CALCIUM 9.0 8.8 - 10.2 mg/dL 12/19/2023 1:26 PM [facility] BUN 17 8 - 23 mg/dL 12/19/2023 1:26 PM [facility] CREATININE 1.12 0.67 - 1.17 mg/dL 12/19/2023 1:26 PM [facility] GLUCOSE 162(H) 74 - 99 mg/dL 12/19/2023 1:26 PM [facility] TOTAL PROTEIN 6.5(L) 6.6 - 8.7 g/dL 12/19/2023 1:26 PM [facility] ALBUMIN 3.7 3.5 - 5.2 g/dL 12/19/2023 1:26 PM [facility] BILIRUBIN TOTAL 0.2 <=1.2 mg/dL 12/19/2023 1:26 PM [facility] ALKALINE PHOSPHATASE 77 40 - 129 U/L 12/19/2023 1:26 PM [facility] AST 13 10 - 50 U/L 12/19/2023 1:26 PM [facility] ALT 12 10 - 50 U/L 12/19/2023 1:26 PM [facility] GFR >60 >=60 mL/min/1.7 3 sq meter 12/19/2023 1:26 PM [facility] Comment:eGFR calculated with 2020 CKD-EPI equation. Vegetarian diet, extremely high or low muscle mass, and may affect results. Cystatin C with Glomerular Filtration Rate is a suitable alternative for these patients. ANION GAP 6(L) 12 - 20 mmol/L 12/19/2023 1:26 PM [facility] Blood Collection / Unknown 12/19/2023 12:50 PM SASH MAKER 12/19/2023 12:58 PM SASH MAKER us Naow [facility] CHEMISTRY ORDERABLES Fin al Result Performing Organization Address City/[facility]/ZIP Co de Phone Number [facility] CLIA # [id number] [address] [place] [phone] * (ABNORMAL) C-REACTIVE PROTEIN (12/19/2023 12:50 PM SASH MAKER) CRP 7.2(H) <5.0 mg/L 12/19/2023 1:26 PM [facility] Blood Collection / Unknown 12/19/2023 12:50 PM SASH MAKER 12/19/2023 12:58 PM SASH MAKER us Naow HOISTING ENGINEER PILE DRIVING CHEMISTRY ORDERABLES Fin al Result [facility] CLIA # [id number] [address] [place] [address] * (ABNORMAL) CBC WITH DIFFERENTIAL (12/19/2023 12:50 PM [facility]) WBC 5.4 4.2 - 9.1 K/uL 12/19/2023 1:11 PM [facility] RBC 4.05(L) 4.63 - 6.08 M/uL 12/19/2023 1:11 PM [facility] HEMOGLOBIN 12.0(L) 13.7 - 17.5 g/dL 12/19/2023 1:11 PM [facility] HEMATOCRIT 39.2(L) 40.1 - 51.0 % 12/19/2023 1:11 PM [facility] MCV 96.8(H) 79.0 - 92.2 fL 12/19/2023 1:11 PM [facility] MCH 29.6 25.7 - 32.2 pg 12/19/2023 1:11 PM [facility] MCHC 30.6(L) 32.3 - 36.5 g/dL 12/19/2023 1:11 PM [facility] RDW 12.8 11.0 - 14.5 % 12/19/2023 1:11 PM [facility] RDW-STDEV 45.1 36.9 - 56.9 fL 12/19/2023 1:11 PM [facility] PLATELETS 174 130 - 400 K/uL 12/19/2023 1:11 PM [facility] MPV 9.5(L) 10.0 - 14.8 fL 12/19/2023 1:11 PM [facility] NEUTROPHILS 62 34 - 68 % 12/19/2023 1:11 PM [facility] LYMPHOCYTES 25 22 - 53 % 12/19/2023 1:11 PM [facility] MONOCYTES 10 5 - 12 % 12/19/2023 1:11 PM [facility] EOSINOPHILS 3 1 - 7 % 12/19/2023 1:11 PM [facility] BASOPHILS 1 0 - 1 % 12/19/2023 1:11 PM [facility] IMMATURE GRANULOCYTES 1 % 12/19/2023 1:11 PM [facility] NEUTROPHIL ABSOLUTE 3.32 1.78 - 5.38 K/uL 12/19/2023 1:11 PM [facility] LYMPHOCYTE ABSOLUTE 1.34 1.20 - 3.40 K/uL 12/19/2023 1:11 PM [facility] MONOCYTE ABSOLUTE 0.53 0.30 - 0.82 K/uL 12/19/2023 1:11 PM [facility] EOSINOPHIL ABSOLUTE 0.14 0.04 - 0.54 K/uL 12/19/2023 1:11 PM [facility] BASOPHILS ABSOLUTE 0.03 0.01 - 0.08 K/uL 12/19/2023 1:11 PM [facility] IMMATURE GRANULOCYTES ABSOLUTE 0.03 K/uL 12/19/2023 1:11 PM [facility] Blood Collection / Unknown 12/19/2023 12:50 PM SASH MAKER 12/19/2023 12:58 PM SASH MAKER Cheri Pathammad Ambrosios HOISTING ENGINEER PILE DRIVING HEMATOLOGY ORDERABLES Fi nal Result [id number] [address] [place] [address] documented in this encounter Visit Diagnoses Diagnosis Dyspnea, unspecified documented in this encounter Care Teams Gas Jockey Relationship Specialty Start Date End Date Saji York MD [address] [phone] PCP - General 04/09/21 documented as of this encounter
--- OUTSIDE RECORDS SUMMARY | 2025-03-31 15:48 | XMS_ITS | Encounter Summary ---
Author Organization [facility] Address [address] [place] [address] Care Team Providers Care Countersinker Name Role Phone Saji York MD Primary Care Provider [phone] Encounter Details Date Type Department Care Team (Latest Contact Info) Description 04/18/1998 Outpatient Historical [facility] Wilver Young MD NO ADDRESS ON FILE Closed fracture of lumbar vertebra without mention of spinal cord injury (CMS/HCC) (Primary Dx) Social History Tobacco Use Types Packs/Day Years Used Date Smoking Tobacco: Never Assessed Sex and Gender Information Value Date Recorded Sex Assigned at Not on file 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
[2025-03-31] MEDS: trazodone 150 mg Tablet PO (21:02)
[2025-04-01] VITALS (19 sets, daily range): BP systolic 102–155; BP diastolic 53–68; PULSE 61–95; RESP 13–20; TEMP 36.6–37.1; O2SAT 90–100
[2025-04-01] MEDS: methylPREDNISolone sod succ 40 mg/mL INJ IVP ×4 (00:08→17:57)
[2025-04-01] MEDS: ipratropium-albuterol 3 mL Neb INHALATION ×4 (02:00→19:55)
[2025-04-01 05:58] LABS: Basophils % 0.2 %; Eosinophils % 0.1 %; Hematocrit 39.9 % (37-53); Lymphocytes # 0.9 10^3/uL (0.8-4.8); Lymphocytes % 8.6 %; Mean Corpuscular HGB Conc 29.8 g/dL (30-55); Mean Corpuscular Hemoglobin 28.9 pg (27-33); Mean Corpuscular Volume 96.8 fl (82-101); Mean Platelet Volume 9.4 fL (7.4-10.4); Monocytes # 0.3 10^3/uL (0.2-0.9); Monocytes % 3.3 %; Neutrophils # 8.57 10^3/uL (1.8-7.7); Neutrophils % 86.2 %; Nucleated Red Blood Cells % 0 %; Platelet Count 279 10^3/cmm (157-399); Red Blood Count 4.12 10^6/uL (3.85-5.65); Red Cell Distribution Width 13.6 % (12.1-15.1); White Blood Count 9.95 10^3/uL (3.29-11.43)
[2025-04-01 06:13] LABS: Anion Gap 15.4 (5-19); Blood Urea Nitrogen 20 mg/dL (8-23); Calcium 9.5 mg/dL (8.5-10.5); Carbon Dioxide 23 mmol/L (22-29); Chloride 102 mmol/L (98-107); Creatinine Clr Calc Pharmacy 65.6393; Glomerular Filtration Rate 66.6 mL/min (90-130); Glucose 304 mg/dL (65-115); Osmolality Calculated 296 mOsm/kg (285-295); Potassium 4.4 mmol/L (3.5-5.1); Sodium 136 mmol/L (136-145)
[2025-04-01] MEDS: polyethylene glycol 3350 Pkt 17 gm PO ×2 (09:31→17:57)
[2025-04-01] MEDS: cefTRIAXone 1,000 mg SDV 1000 MG IVP (09:31)
--- NOTE | 2025-04-01 10:27 | P.PN_ITS ---
Subjective 2 Subjective: Improving. Was able to wean off of AVAPS this morning to nasal cannula. today he is awake and alert. Feels subjectively breathing is improving. Vitals/I&O/Wt Last Vital Signs Temp 97.8 F 03/31/25 20:12 Pulse 93 04/01/25 08:00 Resp 16 04/01/25 08:00 BP 108/61 04/01/25 04:00 Pulse Ox 98 04/01/25 08:00 O2 Del Method BiPAP 04/01/25 02:00 O2 Flow Rate 3 04/01/25 08:00 FiO2 28 04/01/25 05:00 03/31/25 04/01/25 04/01/25 22:59 06:59 14:59 Intake Total 225 / 225 Output Total 950 / 950 100 / 1050 Balance -725 / -725 -100 / -825 Weight last 48 hrs Weight 102.058 kg Physical Exam 2 Const: COMMON NORMALS: patient oriented x3 and alert GENERAL APPEARANCE: c ooperative ORIENTATION/CONSCIOUSNESS: Yes awake HENMT: COMMON NORMALS: oropharynx normal Neck/C-Spine: COMMON NORMALS: no JVD Resp: COMMON NORMALS: normal respiratory effort OTHER: Improving air entry bilaterally. Cardio: COMMON NORMALS: no JVD, regular rhythm, S1 normal heart sound present, S2 normal heart sound present and No murmurs present (Cardio) RHYTHM: regular rhythm HEART SOUNDS: S1 normal heart sound present and S2 normal heart sound present GI: COMMON NORMALS: Normal to inspection, nondistended, normoactive bowel sounds present, Soft to palpation and non-tender PALPATION: Yes Soft to palpation Extremity: COMMON NORMALS: no joint enlargement and no pedal edema Neuro: COMMON NORMALS: patient oriented x3 and moves all extremities S ENSORIUM/ORIENTATION: Yes alert Skin: COMMON NORMALS: no rashes or lesions noted GENERAL SKIN EXAM: no rashes or lesions noted Data 04/01/25 05:20 04/01/25 05:20 A&P Assessment and plan (1) COPD with acute exacerbation: Showing improvement. Able to wean off AVAPS at least temporarily. Subjectively is improving. Air entry is improving. He is now awake and alert. Continue IV steroids, empiric antibiotic, breathing treatments. Reassess, if able to consistently, off AVAPS to perform routine daily activities, may be able to discharge home in the morning. Reviewed vitals, CBC, BMP. Checking on sputum culture, it is uncollected. Reviewed troponin series, without significant elevation. Free of chest pain. Discussed with nursing, case operator. - Continue AVAPS mask support as tolerated. - Continue IV steroids as discussed with Solu-Medrol, monitor for risk of hypertension, hyperglycemia, gastritis, encephalopathy. - Empiric antibiotic coverage with ceftriaxone. - Collect sputum culture. - Continue nebulizer treatments with home medications. With skeletal deformities, kyphoscoliosis, extensive spine fixation hardware, difficulty repositioning, chronic back pain, GERD, as well as need for AVAPS intermittently during the day in addition to at night, would benefit from hospital bed at home. (2) DM type 2 (diabetes mellitus, type 2): Reviewed POC glucose, monitor especially with IV corticosteroid. Hold Ozempic. Sliding scale insulin. Consult carbohydrate diet. Resume Ozempic after discharge. Plan Constipation : The patient experiences occasional small bowel movements with constipation, managed with Miralax every other day as needed. No blood in stool or dark stools reported. - Continue Miralax as needed for constipation. - Monitor bowel movements during hospitalization. PDMP PDMP Reviewed: Not Reviewed Attestations 2 Medical Necessity Statement*: Continue admission for assessment management of severe dissipation of COPD, improving hypercapnic respiratory failure. Diagnoses COPD with acute exacerbation J44.1 DM type 2 (diabetes mellitus, type 2) E11.9
[2025-04-01] MEDS: enoxaparin 40 mg/0.4 mL Syringe SUBCUT (12:20)
[2025-04-01] MEDS: trazodone 150 mg Tablet PO (21:43)
[2025-04-01] MEDS: ondansetron 2 mg/ML SDV 2 mL 4 MG IVP (22:02)
[2025-04-02] VITALS (15 sets, daily range): BP systolic 105–124; BP diastolic 60–75; PULSE 64–93; RESP 16–21; TEMP 36.4–37.1; O2SAT 90–98
[2025-04-02] MEDS: methylPREDNISolone sod succ 40 mg/mL INJ IVP ×4 (00:10→23:14)
[2025-04-02] MEDS: ipratropium-albuterol 3 mL Neb INHALATION ×4 (02:07→20:55)
[2025-04-02 04:46] LABS: Basophils % 0.1 %; Hematocrit 34.6 % (37-53); Lymphocytes # 1.1 10^3/uL (0.8-4.8); Lymphocytes % 8.1 %; Mean Corpuscular HGB Conc 30.1 g/dL (30-55); Mean Corpuscular Hemoglobin 28.6 pg (27-33); Mean Corpuscular Volume 95.1 fl (82-101); Mean Platelet Volume 9.6 fL (7.4-10.4); Monocytes # 0.6 10^3/uL (0.2-0.9); Monocytes % 4.2 %; Neutrophils # 11.57 10^3/uL (1.8-7.7); Neutrophils % 86.3 %; Nucleated Red Blood Cells % 0 %; Platelet Count 264 10^3/cmm (157-399); Red Blood Count 3.64 10^6/uL (3.85-5.65); Red Cell Distribution Width 13.6 % (12.1-15.1); White Blood Count 13.42 10^3/uL (3.29-11.43)
[2025-04-02 04:58] LABS: Anion Gap 12.6 (5-19); Blood Urea Nitrogen 26 mg/dL (8-23); Calcium 9.2 mg/dL (8.5-10.5); Carbon Dioxide 27 mmol/L (22-29); Chloride 102 mmol/L (98-107); Creatinine Clr Calc Pharmacy 80.2258; Glomerular Filtration Rate 83.9 mL/min (90-130); Glucose 225 mg/dL (65-115); Osmolality Calculated 296 mOsm/kg (285-295); Potassium 4.6 mmol/L (3.5-5.1); Sodium 137 mmol/L (136-145)
[2025-04-02] MEDS: polyethylene glycol 3350 Pkt 17 gm PO ×2 (08:04→17:23)
[2025-04-02] MEDS: cefTRIAXone 1,000 mg SDV 1000 MG IVP (08:04)
[2025-04-02] MEDS: enoxaparin 40 mg/0.4 mL Syringe SUBCUT (11:36)
[2025-04-02] MEDS: bisacodyl 5 mg Tablet 10 MG PO (13:03)
--- NOTE | 2025-04-02 16:55 | P.PN_ITS ---
Subjective 2 Subjective: Patient was noted to be on AVAPS upon walking into the room. He wants to know when he can leave. Lower extremity swelling is noted with pitting edema bilaterally. Medications: Reviewed: Yes Vitals/I&O/Wt Last Vital Signs Temp 97.6 F 04/02/25 15:28 Pulse 71 04/02/25 15:28 Resp 18 04/02/25 15:28 BP 124/75 04/02/25 15:28 Pulse Ox 93 04/02/25 15:28 O2 Del Method Nasal Cannula 04/02/25 13:46 O2 Flow Rate 2 04/02/25 13:46 FiO2 28 04/01/25 05:00 04/02/25 04/02/25 04/02/25 06:59 14:59 22:59 Intake Total 300 / 300 Output Total 300 / 1250 500 / 500 Balance -300 / -650 300 / 300 -500 / -200 Physical Exam 2 Narrative: General: Awake alert and oriented x 3, currently on a AVAPS when seen. HEENT: PERRLA, pupils bilaterally equal and reactive, pallors not present Chest: Normal vesicular breath sounds, no added sounds, equal good air entry bilaterally CVS: S1-S2 regular, no murmurs, no tachycardia, no gallops, no rubs Abdomen: Soft, nontender, no organomegaly, bowel sounds present Neuro: No focal deficits, no facial deformity, AO x3, power 5/5 in all limbs Extremities: Bilateral lower extremity pitting edema. Data 04/02/25 03:23 04/02/25 03:23 A&P Assessment and plan (1) COPD with acute exacerbation: Showing improvement. Able to wean off AVAPS at least temporarily. Subjectively is improving. Air entry is improving. He is now awake and alert. Continue IV steroids, empiric antibiotic, breathing treatments. Reassess, if able to consistently, off AVAPS to perform routine daily activities, may be able to discharge home in the morning. Reviewed vitals, CBC, BMP. Checking on sputum culture, it is uncollected. Reviewed troponin series, without significant elevation. Free of chest pain. Discussed with nursing, nurse case manager. - Continue AVAPS mask support as tolerated. - Continue IV steroids as discussed with Solu-Medrol, monitor for risk of hypertension, hyperglycemia, gastritis, encephalopathy. - Empiric antibiotic coverage with ceftriaxone. - Collect sputum culture. - Continue nebulizer treatments with home medications. With skeletal deformities, kyphoscoliosis, extensive spine fixation hardware, difficulty repositioning, chronic back pain, GERD, as well as need for AVAPS intermittently during the day in addition to at night, would benefit from hospital bed at home. (2) DM type 2 (diabetes mellitus, type 2): Reviewed POC glucose, monitor especially with IV corticosteroid. Hold Ozempic. Sliding scale insulin. Consult carbohydrate diet. Resume Ozempic after discharge. Plan Constipation : The patient experiences occasional small bowel movements with constipation, managed with Miralax every other day as needed. No blood in stool or dark stools reported. - Continue Miralax as needed for constipation. - Monitor bowel movements during hospitalization. April 02, 2025 chart reviewed 69 year old male with a history of COPD and diabetes is presenting with increased shortness of breath and somnolence for about a week. The patient has been coughing frequently, producing green-tinged phlegm, but denies chest pain, pressure, nausea, vomiting, diarrhea. He was found to have acute hypercapnic respiratory failure along with acute encephalopathy related to the hypercapnia. He has been on treatment for COPD exacerbation since admission on March 31, 2025 with current IV methylprednisolone at 40 mg every 6 hours. Lower extremity pitting edema is noted today. Will give Bumex 2 mg IV push today followed by 2 mg IV daily. Additionally resume home doses of patient's acetazolamide which she takes 3 times a week along with daily spironolactone. Repeat ABG with a.m. labs. Currently he is on AVAPS. Reduce steroids to methylprednisolone 40 mg IV every 12 hours. Attempt to wean to oral steroids over the next 24 hours. PDMP PDMP Reviewed: Not Reviewed Attestations 2 Medical Necessity Statement*: IV diuresis today, wean steroids, closely monitor for any worsening dyspnea with tapering down of steroids. Needs additional doses of IV diuresis due to interim development of lower extremity pitting edema. Coding Level of Care Code Acute Code for Chg Fwd Diagnoses COPD with acute exacerbation J44.1 DM type 2 (diabetes mellitus, type 2) E11.9
[2025-04-02] MEDS: ranolazine (12HR) 500 mg Tablet PO (17:23)
[2025-04-02] MEDS: aspirin 81 mg EC Tablet PO (17:23)
[2025-04-02] MEDS: bumetanide 0.25 mg/mL SDV 10 mL 2 MG IVP (17:23)
[2025-04-02] MEDS: budesonide 0.5 mg/2 mL Neb INHALATION (20:55)
[2025-04-02] MEDS: acetaZOLAMIDE 250 mg Tablet PO (23:13)
[2025-04-02] MEDS: trazodone 150 mg Tablet PO (23:14)
[2025-04-03 00:46] VITALS: BP 113/71; PULSE 67; RESP 17; TEMP 37.2; O2SAT 99
[2025-04-03] MEDS: ipratropium-albuterol 3 mL Neb INHALATION ×2 (01:37→08:04)
[2025-04-03 04:24] LABS: ABG PCO2 59.3 mmHg (35-45); ABG PH Result 7.33 (7.35-7.45); Arterial Blood Gas Hematocrit 36.3 % (42-52); Base Excess ABG 4.1 mmol/L (-2.0-2.0); Blood Gas Allen Test Pos; Blood Gas Operator Identificat gerca; Blood Gas Sample Site Brachial, right; Blood Gas Sample Type Arterial; HCO3 ABG 31.4 mmol/L (22-26); Oxygen Device NC; PO2 ABG 90.9 mmHg (80.0-100.0); PO2 FiO2 Ratio Arterial Blood 284
[2025-04-03 05:10] VITALS: PULSE 65
[2025-04-03 05:20] VITALS: BP 110/63; PULSE 70; RESP 17; TEMP 36.8; O2SAT 99
[2025-04-03 07:07] LABS: Basophils % 0.2 %; Hematocrit 35.7 % (37-53); Lymphocytes # 1.3 10^3/uL (0.8-4.8); Lymphocytes % 11.6 %; Mean Corpuscular HGB Conc 30.5 g/dL (30-55); Mean Corpuscular Hemoglobin 29.1 pg (27-33); Mean Corpuscular Volume 95.2 fl (82-101); Mean Platelet Volume 9.3 fL (7.4-10.4); Monocytes # 0.5 10^3/uL (0.2-0.9); Monocytes % 4.3 %; Neutrophils # 9.31 10^3/uL (1.8-7.7); Nucleated Red Blood Cells % 0 %; Platelet Count 262 10^3/cmm (157-399); Red Blood Count 3.75 10^6/uL (3.85-5.65); Red Cell Distribution Width 13.8 % (12.1-15.1); White Blood Count 11.35 10^3/uL (3.29-11.43)
[2025-04-03 07:24] LABS: Anion Gap 13.2 (5-19); Blood Urea Nitrogen 32 mg/dL (8-23); Carbon Dioxide 28 mmol/L (22-29); Chloride 99 mmol/L (98-107); Creatinine Clr Calc Pharmacy 80.2258; Glomerular Filtration Rate 83.9 mL/min (90-130); Glucose 219 mg/dL (65-115); Osmolality Calculated 296 mOsm/kg (285-295); Potassium 4.2 mmol/L (3.5-5.1); Sodium 136 mmol/L (136-145)
[2025-04-03 07:34] VITALS: BP 110/73; PULSE 74; RESP 16; TEMP 36.5; O2SAT 96
[2025-04-03 08:00] VITALS: PULSE 66; RESP 16; O2SAT 98
[2025-04-03] MEDS: budesonide 0.5 mg/2 mL Neb INHALATION (08:04)
[2025-04-03] MEDS: cefTRIAXone 1,000 mg SDV 1000 MG IVP (08:40)
[2025-04-03] MEDS: polyethylene glycol 3350 Pkt 17 gm PO (08:40)
[2025-04-03] MEDS: aspirin 81 mg EC Tablet PO (08:40)
[2025-04-03] MEDS: ranolazine (12HR) 500 mg Tablet PO (08:40)
[2025-04-03] MEDS: bumetanide 0.25 mg/mL SDV 10 mL 2 MG IVP (08:40)
[2025-04-03] MEDS: methylPREDNISolone sod succ 40 mg/mL INJ IVP (08:40)
[2025-04-03] MEDS: spironolactone 25 mg Tablet PO (08:40)
[2025-04-03 11:09] VITALS: BP 118/72; PULSE 85; RESP 18; TEMP 36.9; O2SAT 96
--- NOTE | 2025-04-03 12:25 | PC.NURSE ---
D/C pending ride home.
--- NOTE | 2025-04-03 18:06 | PM.DCS ---
Discharge Providers Date of Admission: 03/31/25 11:31 Date of Discharge: April 03, 2025 Attending Provider at Admission: Shahram Perdomo Attending Provider at Discharge: Jennifer Cerda MD Primary Care Provider: Saji York Diagnoses at Discharge Discharge Diagnosis (1) COPD with acute exacerbation: Status: Acute (2) DM type 2 (diabetes mellitus, type 2): Status: Acute Reason for Visit Reason for Visit: trouble breathing Hospital Course Hospital Course 69 year old male with a history of COPD and diabetes is presenting with increased shortness of breath and somnolence for about a week. The patient has been coughing frequently, producing green-tinged phlegm, but denies chest pain, pressure, nausea, vomiting, diarrhea. His stated that patient is supposed to be on minimum 8 hours of AVAPS at home, however recently has only been doing 2 to 3 hours at nighttime. He was found to have acute hypercapnic respiratory failure along with acute encephalopathy related to the hypercapnia. He received treatment for COPD exacerbation since admission on March 31, 2025 with IV methylprednisolone and scheduled embolization. He was additionally noted to have lower extremity pitting edema for which she received IV Bumex. Patient responded well to these interventions. This morning he was back to his 3 L/min supplemental oxygen. ABG was repeated which showed a pH of 7.33, pCO2 of 59.3, PO2 of 90 on 3 L/min supplemental O2. Patient has been discharged today with recommendation to continue his AVAPS at least for 8 hours as recommended previously in addition to nighttime use. He received a prednisone taper at the time of discharge, recommended to increase Bumex to 2 mg twice daily for the next 3 days and then go back to daily dose of Bumex 2 mg p.o. daily. Augmentin has been added for 3 remaining days at discharge. Patient feels back to baseline as confirmed with his and is eager to be discharged home Physical Exam Narrative: General: No acute distress, AO x1 HEENT: PERRLA, pupils bilaterally equal and reactive, pallors not present Chest: Normal vesicular breath sounds, no added sounds, equal good air entry bilaterally CVS: S1-S2 regular, no murmurs, no tachycardia, no gallops, no rubs Abdomen: Soft, nontender, no organomegaly, bowel sounds present Neuro: No focal deficits, no facial deformity, AO x3, power 5/5 in all limbs Extremities: Mild bilateral lower extremity swelling Discharge Data Studies Completed and Pending Completed Studies During Hospitalization Category Date Time Status CT head wo con* [id number] Stat Cat Scan 03/31/25 07:03 Completed XR chest 1V portable [id number] Stat Exams 03/31/25 06:42 Completed Radiology Impressions Chest X-Ray 03/31/25 06:42 IMPRESSION: No acute findings. Head CT 03/31/25 07:03 IMPRESSION: No acute intracranial abnormality. Laboratory Results WBC 11.35 10^3/uL (3.29-11.43) 04/03/25 06:43 RBC 3.75 10^6/uL (3.85-5.65) L 04/03/25 06:43 Hgb 10.90 g/dL (11.27-16.99) L 04/03/25 06:43 Hct 35.7 % (37-53) L 04/03/25 06:43 MCV 95.2 fl (82-101) 04/03/25 06:43 MCH 29.1 pg (27-33) 04/03/25 06:43 MCHC 30.5 g/dL (30-55) 04/03/25 06:43 RDW 13.8 % (12.1-15.1) 04/03/25 06:43 Plt Count 262 10^3/cmm (157-399) 04/03/25 06:43 MPV 9.3 fL (7.4-10.4) 04/03/25 06:43 Neut % (Auto) 82.0 % 04/03/25 06:43 Lymph % (Auto) 11.6 % 04/03/25 06:43 Ramsey % (Auto) 4.3 % 04/03/25 06:43 Eos % (Auto) 0.0 % 04/03/25 06:43 Baso % (Auto) 0.2 % 04/03/25 06:43 Neut # (Auto) 9.31 10^3/uL (1.8-7.7) H 04/03/25 06:43 Lymph # (Auto) 1.3 10^3/uL (0.8-4.8) 04/03/25 06:43 Ramsey # (Auto) 0.5 10^3/uL (0.2-0.9) 04/03/25 06:43 Eos # (Auto) 0.0 10^3/uL (0.0-0.8) 04/03/25 06:43 Baso # (Auto) 0.0 10^3/uL (0.0-0.1) 04/03/25 06:43 Nucleated RBC % (auto) 0 % 04/03/25 06:43 Nucleated RBCs # 0.0 /100WBC 04/03/25 06:43 Specimen Type Arterial 04/03/25 04:20 Sample Site Brachial, right 04/03/25 04:20 ABG pH 7.33 (7.35-7.45) L 04/03/25 04:20 ABG pCO2 59.3 mmHg (35-45) H 04/03/25 04:20 ABG pO2 90.9 mmHg (80.0-100.0) 04/03/25 04:20 ABG PO2/FiO2 Ratio 284 04/03/25 04:20 ABG HCO3 31.4 mmol/L (22-26) H 04/03/25 04:20 ABG O2 Saturation 98.0 03/31/25 09:09 ABG Base Excess 4.1 mmol/L (-2.0-2.0) H 04/03/25 04:20 Humberto Test Pos 04/03/25 04:20 A-a O2 Gradient 2.3 mmHg (5-10) L 03/31/25 09:09 Hematocrit 36.3 % (42-52) L 04/03/25 04:20 Hgb O2 Saturation 96.4 % (95-100) 03/31/25 09:09 Carboxyhemoglobin 1.3 %THgb (0.4-20.1) 03/31/25 09:09 Methemoglobin 0.4 % (0.4-1.5) 03/31/25 09:09 Total Hemoglobin 11.4 g/dL (14-18) L 03/31/25 09:09 Sodium 139.0 mmol/L (131-143) 03/31/25 09:09 Potassium 4.4 mmol/L (3.5-5.0) 03/31/25 09:09 Glucose 174.0 mg/dL (70-115) H 03/31/25 09:09 Ionized Calcium 1.3 mmol/L (1.1-1.4) 03/31/25 09:09 O2 Delivery Device Nc 04/03/25 04:20 O2 Liters/Min 3.0 % 04/03/25 04:20 FiO2 32.0 % 04/03/25 04:20 Petroleum Refining Equipment Operator ID [email or web address] 04/03/25 04:20 Sodium 136 mmol/L (136-145) 04/03/25 06:43 Potassium 4.2 mmol/L (3.5-5.1) 04/03/25 06:43 Chloride 99 mmol/L (98-107) 04/03/25 06:43 Carbon Dioxide 28 mmol/L (22-29) 04/03/25 06:43 Anion Gap 13.2 (5-19) 04/03/25 06:43 BUN 32 mg/dL (8-23) H 04/03/25 06:43 Creatinine 0.9 mg/dL (0.7-1.2) 04/03/25 06:43 GFR Calculation 83.9 mL/min (90-130) L 04/03/25 06:43 Glucose 219 mg/dL (65-115) H 04/03/25 06:43 Calculated Osmolality 296 mOsm/kg (285-295) H 04/03/25 06:43 Calcium 9.0 mg/dL (8.5-10.5) 04/03/25 06:43 Total Bilirubin 0.2 mg/dL (0.15-1.2) 03/31/25 07:29 AST 28 U/L (0-40) 03/31/25 07:29 ALT 31 U/L (0-41) 03/31/25 07:29 Alkaline Phosphatase 90 U/L (40-130) 03/31/25 07:29 Troponin T Baseline 9 ng/L (0-15) 03/31/25 07:18 Troponin T 120 Minute 8.99 ng/L (0-15) 03/31/25 09:19 Delta Troponin T -0.01 ABS# (0-10) L 03/31/25 09:19 Troponin T Hi Sens 6Hr 7.88 ng/L (0-15) 03/31/25 12:56 Troponin T Hi Sens 6Hr Delta -1.12 ng/L (0-12) L 03/31/25 12:56 Total Protein 6.9 g/dL (6.6-8.7) 03/31/25 07:29 Albumin 3.7 g/dL (3.5-5.2) 03/31/25 07:29 Globulin 3.2 g/dL (1.3-4.6) 03/31/25 07:29 Ethyl Alcohol < 10 mg/dL (0-10) 03/31/25 07:29 Vitals Last Vital Signs Temp 98.5 F 04/03/25 11:09 Pulse 85 04/03/25 11:09 Resp 18 04/03/25 11:09 BP 118/72 04/03/25 11:09 Pulse Ox 96 04/03/25 11:09 O2 Del Method Nasal Cannula 04/03/25 11:09 O2 Flow Rate 2 04/03/25 08:00 FiO2 28 04/01/25 05:00 Discharge Plan Discharge Patient Disposition: Home Condition: Stable Prescriptions: New prednisone 10 mg tablet See Taper PO DIRECTED Qty: 60 0RF Taper: predniSONE 60-10 60 mg Daily for 2 Days and 0 Hour 50 mg Daily for 2 Days and 0 Hour 40 mg Daily for 2 Days and 0 Hour 30 mg Daily for 2 Days and 0 Hour 20 mg Daily for 2 Days and 0 Hour 10 mg Daily for 2 Days and 0 Hour Rx Instructions: see taper instructions pantoprazole [Protonix] 40 mg tablet,delayed release (DR/EC) 40 mg PO DAILY 28 Days Qty: 30 0RF amoxicillin-pot clavulanate 875-125 mg tablet 1 tab PO BID 3 Days Qty: 6 0RF Continued ranolazine 500 mg tablet extended release 12 hr 500 mg PO BID aspirin 81 mg tablet,delayed release (DR/EC) 81 mg PO DAILY Qty: 30 0RF bumetanide 2 mg Tablet See Rx Instructions .ROUTE .COMPLEX Rx Instructions: TAKE 2 MG BY MOUTH TWICE DAILY ON FRIDAY, FRIDAY, FRIDAY, AND FRIDAY trazodone 150 mg tablet 150 mg PO BEDTIME Ozempic 0.25 mg or 0.5 mg (2 mg/3 mL) pen injector 0.25 mg SUBCUT Q7D potassium chloride 20 mEq tablet extended release 40 meq PO BID acetazolamide 250 mg tablet See Rx Instructions .ROUTE .COMPLEX Rx Instructions: TAKE 1 TABLET BY MOUTH TWICE DAILY ON FRIDAY, FRIDAY AND FRIDAY. sennosides-docusate sodium 8.6-50 mg Tablet 1 tab-cap PO DAILY PRN (Reason: Constipation) spironolactone 25 mg tablet 25 mg PO DAILY Discharge Orders: Discharge Order (Routine); Ordered 04/03/25 Ordered By: Jennifer Cerda Other Ambulatory Orders: DME: Hospital Bed (Order) Location: None Selected Ordered By: Shahram Perdomo Referrals: Saji York [Primary Care Provider, [facility]] - 7-10 days Referral Note: You will need to contact your primary care provider Dr. York tomorrow to setup a follow up in 7-10 days. Patient Instructions: Prednisone (By mouth), Amoxicillin/Clavulanate Potassium (By mouth), Pantoprazole (By mouth) (Protonix), COPD (Chronic Obstructive Pulmonary Disease) (DC), COPD Stoplight, Opioid Safety Discharge Attestations Time Spent in Discharge Care*: greater than 30 min Status at Discharge: Cognitive status at discharge: cognitively intact, Behavioral status at discharge: cooperative, Quality Metrics Clinical Quality Measures [ No reported AMI, CVA or VTE this stay] Coding Level of Care Code Acute Code for Chg Fwd Diagnoses COPD with acute exacerbation J44.1 DM type 2 (diabetes mellitus, type 2) E11.9
== END 2025-04-03 12:55 | disposition home or self-care (01) | DRG 189 ==
LOC: ER 06:53 → ICU 10:45 → MEDSURG 04-01 13:32
PROVIDERS: Admitting Provider Internal Medicine; Emergency Provider Family Medicine; PCP Family Medicine; Visit Provider Student in an Organized Health Care Education/Training Program
DX: J96.02 Acute respiratory failure with hypercapnia (principal); J44.1 Chronic obstructive pulmonary disease with (acute) exacerbation; G93.49 Other encephalopathy; E11.9 Type 2 diabetes mellitus without complications; M41.80 Other forms of scoliosis, site unspecified; G89.29 Other chronic pain; M54.9 Dorsalgia, unspecified; K21.9 Gastro-esophageal reflux disease without esophagitis; K59.00 Constipation, unspecified; Z87.891 Personal history of nicotine dependence; I50.9 Heart failure, unspecified; Z79.82 Long term (current) use of aspirin; Z79.85 Long-term (current) use of injectable non-insulin antidiabetic drugs
CPT/HCPCS: 36415; 36600; 70450; 71045; 80048; 80051; 80053; 80307; 82330; 82803; 82805; 84484; 85025; 93005; 94640; 94660; 94664; 96372; 96374; 99285; J0696; J1650; J2405; J2919; J3490; J7626; J9999

== ENCOUNTER 2025-04-17 05:00 | Outpatient (RCR) | payer MEDICARE, MEDICAID, SELFPAY | END 2025-05-16 23:59 | disposition home or self-care (01) | LOC: SOT 05:00 | PROVIDERS: Visit Provider Family Medicine | DX: E66.01 Morbid (severe) obesity due to excess calories (principal) | CPT/HCPCS: 97167 ==